=== PATIENT | male | born 1955 | race Caucasian/White ===

== ENCOUNTER 2019-06-01 22:50 | Emergency (ER) | payer OTHER, SELFPAY ==
--- NOTE | ~2019-06-01 | XR_ITS ---
XR foot LT min 3V 06/01/2019 23:17 Indication: Left first toe pain Procedure: 4 views left first toe Comparison: No prior studies for comparison. Findings: There is a healed fracture of the first proximal phalanx. There is a nondisplaced intra-art icular fracture of the first distal phalanx. Mild degenerative change at the first MTP joint. No othe r fracture identified. Impression: 1: Nondisplaced intra-articular fracture left first distal phalanx. Reviewed, dictated and finalized at location A. S [facility] [employer] Impression: 1: Nondisplaced intra-articular fracture left first distal phalanx.
[2019-06-01 22:51] VITALS: BP 187/123; PULSE 83; RESP 21; TEMP 36.6; O2SAT 97
--- NOTE | 2019-06-01 23:49 | ED.LOWEXIN ---
HPI - Extremity Injury (Lower) General Chief Complaint: Extremity Injury, Lower Stated Complaint: left foot injury Time Seen by Provider: 06/01/19 23:06 Source: patient and RN notes reviewed Mode of arrival: ambulatory Limitations: no limitations History of Present Illness HPI Narrative: Pt is a 63 y/o male who presents to the ED with c/o lt foot injury happening this afternoon. He notes that he has a Hx of previous lt toe fracture. Pt states that he was walking around 14:00 this afternoon, when he slipped and jammed his lt foot. He reports intense pain and swelling in the dorsal aspect of his lt foot and lt great toe s/p the injury. Pt denies any numbness/tingling, fever, chills, or other symptoms. He notes that he took ASA earlier today for his pain, but denies having any relief. Pt is not currently taking any blood thinners. MD complaint: foot injury Onset (ago): hour(s) (9) Injury: Left: foot Type of Injury: blunt Relieving factors: nothing Context: direct blow Associated symptoms: swelling (swelling over dorsal aspect of lt foot) Other symptoms: none Treatments prior to arrival: other (ASA) Related Data Allergies Allergy/AdvReac Type Severity Reaction Status Date / Time Sulfa (Sulfonamide Allergy Mild Hives Verified 06/01/19 22:50 Antibiotics) Review of Systems Review of Systems: All systems reviewed & are unremarkable except as noted in HPI and below Constitutional: Constitutional: Denies chills and Denies fever(s) Cardiovascular: Cardiovascular: Reports pedal edema (swelling over dorsal aspect of lt foot) Musculoskeletal: Musculoskeletal: Reports other (pain in dorsal aspect of lt foot and lt great toe) Neurologic: Denies numbness and Denies tingling PMFSH Past Medical History Medical History (Updated 06/01/19 @ 23:58 by Selvin Garcia) Bronchitis Nose fracture Toe fracture, left multiple toes Surgical History Surgical History History of tonsillectomy Social History Social History Years smoked: 5 Smoking status: Former smoker Gender identity (if verbalized by the patient): Male Exam Const: General: cooperative, healthy appearing, comfortable, no acute distress, well developed, alert and awake; No confusion Orientation/consciousness: oriented to person, oriented to place, oriented to time, patient oriented x3 and No confusion Limitations: no limitations HENMT: Head: normal to inspection, normocephalic and atraumatic Neck: Neck: normal visual inspection Chest: Chest palpation & inspection: normal inspection of the chest Resp: Effort & Inspection: normal respiratory effort, able to speak in complete sentences, no respiratory distress and not tachypneic Auscultation: clear to auscultation bilaterally, no crackles, no rales, no rhonchi and no wheezes Cardio: Rate: regular rate Rhythm: regular rhythm Peripheral pulses: Peripheral pulses 2+ throughout GI: Inspection: normal to inspection GI Palp: No abdominal tenderness, Yes Soft to palpation, No Tenderness to palpation present (GI), No Guarding due to palpation present (GI), No Rigid due to palpation and No Rebound tenderness present Auscultation: normal bowel sounds Skin: General skin exam: normal color, no rashes or lesions noted, elasticity normal and turgor normal Neuro: General: oriented to person, oriented to place, oriented to time, patient oriented x3, tone normal, moves all extremities, Normal light touch and pain sensation, no meningeal signs, no focal motor deficits, CN's II-XI intact bilaterally and No confusion Cranial nerves: Yes Equal, round and reactive pupils present Speech: No Abnormal speech present Sensory Exam: No Sensory deficit (Neuro) Extrem: General: capillary refill normal Left lower extremity: foot (swelling and ecchymosis of lt 1st digit) Details: tenderness (tenderness over 1st digit) Psych: Appearance: devora
[2019-06-02] MEDS: KETOROLAC (*BKC) 60 MG/2 ML VIAL 30 MG IM (00:12)
--- NOTE | 2019-06-02 00:20 | PC.NURSE ---
Post op shoe to left foot, patient tolerated well.
[2019-06-02 00:41] VITALS: BP 162/90; PULSE 84; RESP 18; TEMP 36.9; O2SAT 98
== END 2019-06-02 00:45 | disposition home or self-care (01) ==
PROVIDERS: Emergency Provider Emergency Medicine
DX: S92.425A Nondisplaced fracture of distal phalanx of left great toe, initial encounter for closed fracture (principal); Z87.891 Personal history of nicotine dependence; W18.49XA Other slipping, tripping and stumbling without falling, initial encounter
CPT/HCPCS: 73630; 96372; 99284; A9270; J1885

== ENCOUNTER 2020-03-26 02:44 | Emergency (ER) | payer OTHER, SELFPAY ==
--- NOTE | ~2020-03-26 | XR_ITS ---
EXAMINATION: XR chest 1V portable DATE: 03/26/2020 04:06 INDICATION: COVID. Dyspnea. TECHNIQUE: frontal view of the chest was obtained. COMPARISON: Chest radiograph and CT dated 04/19/2019 FINDINGS: Calcified nodules in the left lower lung zone and calcified mediastinal lymph nodes consistent with o ld granulomatous disease. No other airspace opacities, pulmonary edema, pleural effusion or pneumotho rax. Heart size is normal. Tortuous thoracic aorta. IMPRESSION: 1. No acute cardiopulmonary disease. Reviewed, dictated and finalized at location A. LANE CAPTAIN
--- NOTE | 2020-03-26 02:46 | ED.SOB ---
HPI - SOB/Dyspnea General Chief Complaint: Shortness of Breath/Dyspnea Stated Complaint: sob, possible covid Time Seen by Provider: 03/26/20 02:46 Source: patient Mode of arrival: ambulatory Limitations: no limitations History of Present Illness HPI Narrative: Patient is a 64-year-old male with a history of asthma who presents for evaluation of shortness of breath in the setting of recent Covid infection. Patient was diagnosed today with Covid, symptoms beginning 4 days ago. The time of assessment, patient is reporting shortness of breath. He reports he feels dehydrated and has had some muscle cramping. He denies fever, chills or productive cough. He denies diarrhea or abdominal pain. He reports decreased oral intake due to lack of appetite. He reports myalgias. Patient states he tried using his inhaler at home with minimal improvement in his symptoms. Related Data Allergies Allergy/AdvReac Type Severity Reaction Status Date / Time Sulfa (Sulfonamide Allergy Mild Hives Verified 06/01/19 22:50 Antibiotics) Review of Systems Review of Systems: Narrative: CONSTITUTIONAL: Denies fever, chills, or sweats. EYES: Denies visual changes, redness, or discharge. ENT: Reports mild rhinorrhea and congestion CARDIOVASCULAR: Denies chest pain, palpitations, or edema. RESPIRATORY: Reports dry cough and shortness of breath GASTROINTESTINAL: Denies abdominal pain, nausea, vomiting, or diarrhea. GENITOURINARY: Denies dysuria or hematuria. SKIN: Denies rash or itching. MUSCULOSKELETAL: Denies back pain, joint pain, or myalgia. NEUROLOGIC: Denies headache, numbness, or weakness. [facility] Past Medical History Medical History Bronchitis Nose fracture Toe fracture, left multiple toes Surgical History Surgical History History of tonsillectomy Social History Social History Years smoked: 5 Smoking status: Former smoker Gender identity (if verbalized by the patient): Male Exam Narrative: Exam Narrative: GENERAL: Awake, alert, conversant HEAD: Normocephalic, atraumatic. EYES: PERRLA and EOMI. ENT: Nares clear, no rhinorrhea or epistaxis. Mucous membranes moist. NECK: Supple. CHEST: No respiratory distress,, able to speak in full sentences, mild tachypnea breathing even and non labored, mild expiratory wheezing bilaterally HEART: Regular rate, sinus rhythm ABDOMEN:Non distended, non tender EXTREMITIES: Normal range of motion. No edema. SKIN: Warm, dry, no rash. NEURO:No focal deficits. Alert and oriented x3 Course Vital Signs Vital signs: Vital Signs Temperature 37.0 C 03/26/20 02:52 Pulse Rate 98 03/26/20 02:52 Respiratory Rate 24 H 03/26/20 02:52 Blood Pressure 169/103 H 03/26/20 02:52 Pulse Oximetry 97 03/26/20 02:52 Temperature 37.0 C 03/26/20 02:52 Pulse Rate 92 03/26/20 04:58 Respiratory Rate 20 03/26/20 04:58 Blood Pressure 171/102 H 03/26/20 04:15 Pulse Oximetry 99 03/26/20 04:15 MDM - SOB/Dyspnea MDM Narrative Medical decision making narrative: Patient presented for evaluation of shortness of breath in the setting of a recent Covid diagnosis. The time of assessment, ABCs are intact and vital signs are stable. Patient with mild tachypnea, no puja respiratory distress. Oxygen saturations are 97% on room air. Patient has some mild expiratory wheezing at the bases without crackles. His arterial blood gas is reassuring. No leukocytosis. Chest x-ray with mild patchy, developing infiltrates but no evidence of walled and pneumonia. This is not seem consistent with bacterial presentation especially given recent viral diagnosis. No electrolyte derangement. Mild elevation in ALT.patient was given DuoNeb treatment, steroids and magnesium given he has a history of asthma and I did feel like he was having a mild exacerbation
[2020-03-26 02:52] VITALS: BP 169/103; PULSE 98; RESP 24; TEMP 37; O2SAT 97
--- NOTE | 2020-03-26 02:58 | ECG_ITS ---
Measurements Intervals [place] Rate: 99 P: 70 [place]: 154 QRS: -2 QRSD: 112 T: 47 QT: 368 QTc: 473 Interpretive Statements SINUS RHYTHM NORMAL ECG Electronically Signed On 03-26-2020 9:26:19 [employer] by Malik Lee D.O.
[2020-03-26 03:22] LABS: Alveolar/Arterial O2 Gradient 27.8 mmHg; Base Excess ABG 2.2 mEq/l (+/-2.0); Carboxyhemoglobin 0.6 % THb (0-2.0); Fractional Inspired Oxygen 21 %; HCO3 ABG 26.3 mEq/l (22.0-26.0); Methemoglobin ABG 0.3 %THb (0-1.5); Oxygen Content ABG 21.8 %vol (16.0-22.0); Oxygen Saturation ABG 95.5 % (95.0-100.0); Oxyhemoglobin 94.2 % THb (90.0-100.0); PCO2 ABG 39.5 mmHg (35.0-45.0); PO2 ABG 74.6 mmHg (80.0-100.0); PO2 FiO2 Ratio Arterial Blood 3.55 %; Reduced Hemoglobin 4.9 %THb (0-5.0); Total Hemoglobin 16.5 g/dL (12.0-18.0); pH ABG 7.442 (7.350-7.450)
[2020-03-26 03:23] LABS: Device ROOM AIR; Modified Allen's Test Pass; Site Drawn LEFT RADIAL
[2020-03-26] MEDS: ACETAMINOPHEN 500 MG TABLET 1000 MG PO (03:38)
[2020-03-26] MEDS: ONDANSETRON INJ 4 MG/2 ML VIAL IV PUSH (03:40)
[2020-03-26] MEDS: methylPREDNISolone SOD SUCC 125 MG VIAL IV PUSH (03:41)
[2020-03-26] MEDS: SODIUM CHLORIDE 0.9% IV 1,000 ML 999 ML IV CONT (03:43)
[2020-03-26] MEDS: MAGNESIUM SULF 2 GM/WATER 50ML 2 GM/50 ML BAG IVPB (03:44)
[2020-03-26 03:47] LABS: Basophils Percent Auto 0.4 % (0.2-1.2); Eosinophils Absolute Auto 0.4 K/mm3 (0-0.3); Eosinophils Percent Auto 6.2 % (0-4.4); Hematocrit 45.8 % (42.0-52.0); Hemoglobin 16.1 g/dL (14.0-18.0); Immature Granulocyte Absolute 0.01 K/mm3 (0.00-0.031); Immature Granulocyte Percent A 0.1 % (0-0.5); Lymphocytes Absolute Auto 2.48 K/mm3 (0.9-3.2); Lymphocytes Percent Auto 35.7 % (18.3-44.2); Mean Corpuscular HGB Conc 35.2 g/dl (32-36); Mean Corpuscular Hemoglobin 31.7 pg (26-34); Mean Corpuscular Volume 90.2 fl (80-100); Mean Platelet Volume 9.9 fl (7.4-10.4); Monocytes Absolute Auto 0.5 K/mm3 (0.1-0.6); Monocytes Percent Auto 7.3 % (2.6-8.5); Neutrophils Absolute Auto 3.5 K/mm3 (1.3-6.7); Neutrophils Percent Auto 50.3 % (45.5-73.1); Platelet Count Result 183 k/mm3 (150-375); Red Blood Count 5.08 M/mm3 (4.6-6.20); Red Cell Distribution Width 11.9 % (11.5-14.5); White Blood Count 6.9 K/mm3 (4.5-10.0)
[2020-03-26 04:02] LABS: INR 0.9; Prothrombin Time 12.5 Seconds (11.1-14.7)
[2020-03-26] MEDS: ALBUTEROL SULFATE NEB 2.5 MG/0.5 ML INH 10 MG INHALATION (04:02)
[2020-03-26] MEDS: IPRATROPIUM BR 0.02% INH SOLN 0.5 MG/2.5 ML VIAL 2 MG INHALATION (04:02)
[2020-03-26 04:03] LABS: Partial Thromboplastin Time 30.1 SECONDS (22.3-36.8)
[2020-03-26 04:04] VITALS: PULSE 93; RESP 20
[2020-03-26 04:06] LABS: Alanine Aminotransferase 57 U/L (4-50); Albumin Level 4.2 g/dL (3.5-5.1); Alkaline Phosphatase 59 U/L (38-126); Anion Gap 7 mmol/L (8-16); Aspartate Amino Transferase 48 U/L (17-59); Bilirubin,Total 0.5 mg/dL (0.2-1.3); Blood Urea Nitrogen 17 mg/dL (9-20); CRP 0.9 mg/dL (<1.0); Calcium 9.4 mg/dL (8.4-10.2); Carbon Dioxide 33 mmol/L (22-30); Chloride 99 mmol/L (98-107); Estimated CRCL calculation 88 ml/min; Estimated Glomerular Filt Rate > 60; Glucose 120 mg/dL (75-110); Lactate Dehydrogenase 393 U/L (313-618); Potassium 4.2 mmol/L (3.4-5.0); Sodium 139 mmol/L (137-145)
[2020-03-26 04:12] LABS: NT Pro B Type Natriuretic Pept 54 PG/ML (5-100)
[2020-03-26 04:15] VITALS: BP 171/102; PULSE 83; RESP 18; O2SAT 99
[2020-03-26 04:22] LABS: Troponin I < 0.012 ng/mL (0.000-0.034)
[2020-03-26 04:58] VITALS: PULSE 92; RESP 20
[2020-03-26 06:02] VITALS: BP 152/96; PULSE 88; RESP 16; O2SAT 98
== END 2020-03-26 06:07 | disposition home or self-care (01) ==
PROVIDERS: Emergency Provider Emergency Medicine
DX: U07.1 COVID-19 (principal); J45.909 Unspecified asthma, uncomplicated; Z87.891 Personal history of nicotine dependence
CPT/HCPCS: 36415; 36600; 71045; 80053; 82375; 82805; 83050; 83615; 83880; 84484; 85025; 85610; 85730; 86140; 93005; 94640; 96365; 96375; 99284; A9270; J2405; J2930; J3475; J7030

== ENCOUNTER 2020-08-03 01:16 | Emergency (ER) | payer OTHER, SELFPAY ==
--- NOTE | ~2020-08-03 | CT_ITS ---
EXAMINATION: CT abdomen pelvis wo con DATE: 08/03/2020 02:39 INDICATION: Right lower quadrant abdominal pain TECHNIQUE: Computed tomography (CT) of the abdomen and pelvis was performed without intravenous contr ast. Automated exposure control and iterative reconstruction technique were employed. Exam dose: 132 6.21 mGy-cm total exam DLP. COMPARISON: None. FINDINGS: Calcified left hilar nodes. Calcified lingular pulmonary granuloma. Probable calcified righ t lower lobe granulomas. There is discoid atelectasis or scarring in the middle and left lower lobes. Normal heart size. No pericardial or pleural effusion. Calcified hepatic and splenic granulomas. No hepatic, splenic, pancreatic, and adrenal or renal space-occupying mass lesion is evident on this limited noncontrast examination. There is a punctate nonobstructing lower pole right renal calculus. Approximately 7 mm distal right ureteral calculus with mild right hydroureteronephrosis and perinephr ic and periureteral stranding. Normal caliber of the abdominal aorta. No intraperitoneal or retroperitoneal or pelvic mass lesion or adenopathy or ascites. There is mild prostate enlargement. The urinary bladder is unremarkable. There are bilateral moderate fat-containing inguinal hernias. Normal appendix. Mild sigmoid colon diverticulosis; no CT evidence of diverticulitis. No bowel obstru ction, bowel wall thickening, pneumatosis or intraperitoneal free air. Small fat-containing umbilical hernia. Degenerative changes of the thoracic and lumbar spine. No suspicious osteolytic or osteoblastic lesio ns are noted. IMPRESSION: 7 mm distal right ureteral calculus with mild right hydroureteronephrosis Punctate nonobstructing lower pole right renal calculus Normal appendix Mild sigmoid colon diverticulosis Old granulomatous disease Reviewed, dictated and finalized at Location [facility]. Reviewed, dictated and finalized at location A. IMPRESSION: 7 mm distal right ureteral calculus with mild right hydroureterone phrosis Punctate nonobstructing lower pole right renal calculus Normal appendix Mild sigmoid colon diverticulosis Old granulomatous disease
--- NOTE | ~2020-08-03 | XR_ITS ---
EXAMINATION: XR abdomen/kub 1V DATE: 08/03/2020 02:44 INDICATION: Right lower abdominal pain. TECHNIQUE: A supine view of the abdomen on 2 radiographs was obtained. COMPARISON: CT abdomen and pelvis 08/03/2020 FINDINGS: There are no dilated loops of bowel. There is a 7 mm stone in distal right ureter. There ar e phleboliths in left pelvis. IMPRESSION: 1. 7 mm stone in distal right ureter. Reviewed, dictated and finalized at location B.
[2020-08-03 01:19] VITALS: PULSE 92; TEMP 36.5; O2SAT 98
--- NOTE | 2020-08-03 01:27 | ED.ABDPAIN ---
HPI - Abdominal Pain General Chief Complaint: Abdominal Pain Stated Complaint: rlq Time Seen by Provider: 08/03/20 01:18 Source: patient Mode of arrival: ambulatory Limitations: no limitations History of Present Illness HPI narrative: This is a 65 year old male who presents for evaluation of sudden onset right lower abdominal pain. He developed pain suddenly 1 hour ago. He states his pain has worsened and he tried to taking gas x without relief. He denies nausea, vomiting, fever, chills, dysuria, hematuria or back. HE reports pain to right groin and testicul but he denies swelling. Quality: aching Exacerbating factors: nothing Relieving factors: nothing Related Data Home Medications Medication Instructions Recorded Confirmed furosemide 08/03/20 Allergies Allergy/AdvReac Type Severity Reaction Status Date / Time Sulfa (Sulfonamide Allergy Mild Hives Verified 08/03/20 01:51 Antibiotics) Review of Systems Review of Systems: All systems reviewed & are unremarkable except as noted in HPI and below Constitutional: Constitutional: Denies chills and Denies fever(s) Gastrointestinal: Gastrointestinal: Reports abdominal pain, Reports nausea and Reports vomiting PMFSH Past Medical History Medical History Bronchitis Nose fracture Toe fracture, left multiple toes Surgical History Surgical History History of tonsillectomy Social History Social History Years smoked: 5 Smoking status: Former smoker Gender identity (if verbalized by the patient): Male Exam Const: General: alert Orientation/consciousness: patient oriented x3 Eyes: EOM: EOMs intact bilaterally Chest: Chest palpation & inspection: normal inspection of the chest Resp: Effort & Inspection: normal respiratory effort and no retractions Auscultation: clear to auscultation bilaterally Cardio: Rate: regular rate Rhythm: regular rhythm Heart sounds: no murmurs GI: GI Palp: Yes Soft to palpation, Yes Tenderness to palpation present (GI) (RLQ), No Guarding due to palpation present (GI) and No Rigid due to palpation Auscultation: normal bowel sounds : Penis: Yes uncircumcised Scrotum: scrotum normal Skin: General skin exam: normal color Rashes: no rashes Neuro: General: patient oriented x3, moves all extremities and CN's II-XI intact bilaterally Course Reevaluation(s) Reevaluation #1: Patient reports his pain has completely resolved. I discussed cT findings of distal stone. He understands discharge plan. Date: 08/03/20 Time: 03:13 Vital Signs Vital signs: Vital Signs Temperature 97.7 F 08/03/20 01:19 Pulse Rate 92 08/03/20 01:19 Pulse Oximetry 98 08/03/20 01:19 Temperature 97.7 F 08/03/20 01:19 Pulse Rate 71 08/03/20 03:50 Respiratory Rate 18 08/03/20 03:50 Blood Pressure 166/106 H 08/03/20 03:50 Pulse Oximetry 98 08/03/20 03:50 MDM - Abdominal Pain Lab Data Attestation: I reviewed the patient's lab results. Result diagrams: 08/03/20 01:44 08/03/20 01:44 Labs: Lab Results 08/03/20 08/03/20 08/03/20 Range/Units 01:44 01:44 01:51 WBC 8.8 (4.5-10.0) K/mm3 RBC 5.21 (4.6-6.20) M/mm3 Hgb 16.0 (14.0-18.0) g/dL Hct 47.8 (42.0-52.0) % MCV 91.7 (80-100) fl MCH 30.7 (26-34) pg MCHC 33.5 (32-36) g/dl RDW 12.9 (11.5-14.5) % Plt Count 262 (150-375) k/mm3 MPV 9.2 (7.4-10.4) fl Immature Gran % (Auto) 0.2 (0-0.5) % Neut % (Auto) 43.1 L (45.5-73.1) % Lymph % (Auto) 45.1 H (18.3-44.2) % Evans % (Auto) 6.7 (2.6-8.5) % Eos % (Auto) 4.1 (0-4.4) % Baso % (Auto) 0.8 (0.2-1.2) % Lymph # (Auto) 3.97 H (0.9-3.2) K/mm3 Evans # (Auto) 0.6 (0.1-0.6) K/mm3 Eos # (Auto) 0.4 H (0-0.3) K/mm3 Baso # (Auto) 0.1
[2020-08-03] MEDS: HYDROmorphone HCL INJ (*CRX) 1 MG/ML SYR IV PUSH (01:40)
[2020-08-03] MEDS: ONDANSETRON INJ 4 MG/2 ML VIAL IV PUSH (01:42)
[2020-08-03 01:44] VITALS: BP 191/88
[2020-08-03] MEDS: LACTATED RINGERS 1,000 ML 999 ML IV CONT (01:50)
[2020-08-03 01:57] LABS: Basophils Absolute Auto 0.1 K/mm3 (0.0-0.1); Basophils Percent Auto 0.8 % (0.2-1.2); Eosinophils Absolute Auto 0.4 K/mm3 (0-0.3); Eosinophils Percent Auto 4.1 % (0-4.4); Hematocrit 47.8 % (42.0-52.0); Immature Granulocyte Absolute 0.02 K/mm3 (0.00-0.031); Immature Granulocyte Percent A 0.2 % (0-0.5); Lymphocytes Absolute Auto 3.97 K/mm3 (0.9-3.2); Lymphocytes Percent Auto 45.1 % (18.3-44.2); Mean Corpuscular HGB Conc 33.5 g/dl (32-36); Mean Corpuscular Hemoglobin 30.7 pg (26-34); Mean Corpuscular Volume 91.7 fl (80-100); Mean Platelet Volume 9.2 fl (7.4-10.4); Monocytes Absolute Auto 0.6 K/mm3 (0.1-0.6); Monocytes Percent Auto 6.7 % (2.6-8.5); Neutrophils Absolute Auto 3.8 K/mm3 (1.3-6.7); Neutrophils Percent Auto 43.1 % (45.5-73.1); Platelet Count Result 262 k/mm3 (150-375); Red Blood Count 5.21 M/mm3 (4.6-6.20); Red Cell Distribution Width 12.9 % (11.5-14.5); White Blood Count 8.8 K/mm3 (4.5-10.0)
[2020-08-03 02:13] LABS: Alanine Aminotransferase 35 U/L (4-50); Albumin Level 4.7 g/dL (3.5-5.1); Alkaline Phosphatase 63 U/L (38-126); Anion Gap 9 mmol/L (8-16); Aspartate Amino Transferase 37 U/L (17-59); Bilirubin,Total 0.5 mg/dL (0.2-1.3); Blood Urea Nitrogen 22 mg/dL (9-20); Calcium 9.9 mg/dL (8.4-10.2); Carbon Dioxide 31 mmol/L (22-30); Chloride 104 mmol/L (98-107); Estimated CRCL calculation 69 ml/min; Estimated Glomerular Filt Rate 56; Glucose 114 mg/dL (75-110); Lipase 83 U/L (23-300); Sodium 144 mmol/L (137-145)
[2020-08-03 02:21] LABS: Add Urine Microscopic? YES; Appearance Urine Cloudy (Clear); Bilirubin Urine Negative (Negative); Blood Urine 1+ (Negative); Color Urine Yellow (Yellow); Glucose Urine UA Negative (Negative); Ketones Urine Negative (Negative); Leukocyte Esterase Ur Negative LEU/UL (Negative); Mucus Urine Few /lpf; Nitrate Urine Negative (Negative); Protein Urine Negative (Negative); Specific Grav Ur 1.025 (1.001-1.035); Squamous Epithelial Cell Urine Rare /hpf (Few); Urobilinogen Urine Negative mg/dL (<2.0)
[2020-08-03 03:12] VITALS: BP 153/103; PULSE 82; RESP 19; O2SAT 96
[2020-08-03] MEDS: TAMSULOSIN HCL 0.4 MG CAPSULE PO (03:21)
--- NOTE | 2020-08-03 03:23 | PC.NURSE ---
Attempted to call pt. girlfriend Carla at [phone]. Called 3x no answer
--- NOTE | 2020-08-03 03:24 | PC.NURSE ---
Pt. girlfriend Carla called back. states she will make a couple phone calls and be in contact w/ RN
[2020-08-03 03:50] VITALS: BP 166/106; PULSE 71; RESP 18; O2SAT 98
--- NOTE | 2020-08-03 03:58 | PC.NURSE ---
Pt. waiting on cab to pick him up.
--- NOTE | 2020-08-03 04:59 | PC.NURSE ---
[facility] cab showed up to transport pt. 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 walked out to parking lot and never returned.
== END 2020-08-03 03:50 | disposition home or self-care (01) ==
PROVIDERS: Emergency Provider General Practice; PCP Family Medicine
DX: N13.2 Hydronephrosis with renal and ureteral calculous obstruction (principal); Z87.891 Personal history of nicotine dependence; K57.90 Diverticulosis of intestine, part unspecified, without perforation or abscess without bleeding
CPT/HCPCS: 36415; 74018; 74176; 80053; 81001; 83690; 85025; 96361; 96374; 96375; 99284; A9270; J1170; J2405; J7120

== ENCOUNTER 2020-09-25 02:24 | Emergency (ER) | payer OTHER, SELFPAY ==
[2020-09-25] VITALS (8 sets, daily range): BP systolic 159–175; BP diastolic 83–97; PULSE 76–88; RESP 14–24; TEMP 36.9; O2SAT 97–100
--- NOTE | ~2020-09-25 | XR_ITS ---
XR chest 2V 09/25/2020 02:50 Indication: Shortness of breath and cough Procedure: PA and lateral views of the chest Comparison: Comparison to multiple prior studies sequentially, with oldest reviewed study dated 09/08. Findings: Heart size normal. No focal air space disease, pulmonary edema, pleural effusion or suspect ed pneumothorax. Impression: 1: No acute cardiopulmonary disease. Reviewed, dictated and finalized at location A. Impression: 1: No acute cardiopulmonary disease.
--- NOTE | 2020-09-25 02:33 | ECG_ITS ---
Measurements Intervals [place] Rate: 85 P: 66 GA: 173 QRS: 10 QRSD: 105 T: 48 QT: 409 QTc: 488 Interpretive Statements SINUS RHYTHM WITH SINUS ARRHYTHMIA POSSIBLE LEFT ATRIAL ENLARGEMENT BASELINE ARTIFACT- I, II, AVR BORDERLINE ECG Electronically Signed On 09-25-2020 5:50:02 CDT by Malik Lee D.O.
--- NOTE | 2020-09-25 02:47 | PC.NURSE ---
Patient in xray at this time.
[2020-09-25 02:49] LABS: Basophils Absolute Auto 0.1 K/mm3 (0.0-0.1); Basophils Percent Auto 0.6 % (0.2-1.2); Eosinophils Absolute Auto 0.5 K/mm3 (0-0.3); Eosinophils Percent Auto 4.9 % (0-4.4); Hematocrit 44.6 % (42.0-52.0); Hemoglobin 14.6 g/dL (14.0-18.0); Immature Granulocyte Absolute 0.03 K/mm3 (0.00-0.031); Immature Granulocyte Percent A 0.3 % (0-0.5); Lymphocytes Absolute Auto 3.26 K/mm3 (0.9-3.2); Lymphocytes Percent Auto 29.9 % (18.3-44.2); Mean Corpuscular HGB Conc 32.7 g/dl (32-36); Mean Corpuscular Hemoglobin 30.5 pg (26-34); Mean Corpuscular Volume 93.1 fl (80-100); Mean Platelet Volume 9.1 fl (7.4-10.4); Monocytes Absolute Auto 0.7 K/mm3 (0.1-0.6); Monocytes Percent Auto 6.3 % (2.6-8.5); Neutrophils Absolute Auto 6.3 K/mm3 (1.3-6.7); Platelet Count Result 221 k/mm3 (150-375); Red Blood Count 4.79 M/mm3 (4.6-6.20); Red Cell Distribution Width 12.9 % (11.5-14.5); White Blood Count 10.9 K/mm3 (4.5-10.0)
[2020-09-25] MEDS: KETOROLAC 30 MG/ML VIAL (*BKC) 15 MG IV PUSH (03:00)
[2020-09-25] MEDS: SODIUM CHLORIDE 0.9% IV 1,000 ML 999 ML IV CONT (03:00)
[2020-09-25] MEDS: ALBUTEROL SULFATE NEB 2.5 MG/0.5 ML INH 5 MG INHALATION (03:03)
[2020-09-25] MEDS: IPRATROPIUM BR 0.02% INH SOLN 0.5 MG/2.5 ML VIAL INHALATION (03:04)
[2020-09-25 03:05] LABS: Anion Gap 10 mmol/L (8-16); Blood Urea Nitrogen 14 mg/dL (9-20); Calcium 9.3 mg/dL (8.4-10.2); Carbon Dioxide 27 mmol/L (22-30); Chloride 101 mmol/L (98-107); Estimated CRCL calculation 89 ml/min; Estimated Glomerular Filt Rate > 60; Glucose 117 mg/dL (75-110); Sodium 138 mmol/L (137-145)
--- NOTE | 2020-09-25 03:50 | ED.GENADULT ---
HPI - General Adult General Chief complaint: Shortness of Breath/Dyspnea Stated complaint: sob, cough, chest pain Time Seen by Provider: 09/25/20 02:49 History of Present Illness HPI narrative: Patient is 65-year-old gentleman who presents the emergency department with chief complaint of cough. Patient reports that over the last several weeks he has been having increasing coughing and is started coughing up greenish sputum. The patient reports he has previously had COVID-19 and since then he has had lung problems. Patient states he normally takes Symbicort and also uses an albuterol rescue inhaler. Patient reports he has been wheezing more reports that he has been coughing a fair amount and has had greenish sputum patient also reports that he has had sinus congestion as well and pressure in his face. Patient states this feels similar to whenever he has had bacterial bronchitis before in the past Related Data Home Medications Medication Instructions Recorded Confirmed budesonide-formoterol [Symbicort] INHALATION 09/25/20 tadalafil mg 09/25/20 Allergies Allergy/AdvReac Type Severity Reaction Status Date / Time Sulfa (Sulfonamide Allergy Mild Hives Verified 09/25/20 02:32 Antibiotics) Review of Systems Review of Systems: Narrative: A 10 system review of systems was completed on the patient and is negative except for what is stated in the HPI. Nursing and ancillary documentation was reviewed. [facility] Past Medical History Medical History Bronchitis Nose fracture Toe fracture, left multiple toes Surgical History Surgical History History of tonsillectomy Social History Social History Years smoked: 5 Smoking status: Former smoker Gender identity (if verbalized by the patient): Male Exam Narrative: Exam Narrative: GENERAL: Well-appearing, well-nourished, and in no acute distress. HEAD: Normocephalic, atraumatic. EYES: PERRLA and EOMI. ENT: Nares clear, no rhinorrhea or epistaxis. Mucous membranes moist. NECK: Supple. CHEST: Clear to auscultation. No respiratory distress. HEART: Regular rate and rhythm. No murmur heard. Normal peripheral pulses. ABDOMEN: Soft, nontender, nondistended, normal active bowel sounds. EXTREMITIES: Normal range of motion. No edema. SKIN: Warm, dry, no rash. NEURO: No focal deficits. Alert and oriented x3. PSYCH: Normal mood and affect. Course Vital Signs Vital signs: Vital Signs Temperature 36.9 C 09/25/20 02:27 Pulse Rate 76 09/25/20 02:27 Respiratory Rate 24 H 09/25/20 02:27 Blood Pressure 175/97 H 09/25/20 02:27 Pulse Oximetry 99 09/25/20 02:27 Temperature 36.9 C 09/25/20 02:27 Pulse Rate 85 09/25/20 03:15 Respiratory Rate 16 09/25/20 03:15 Blood Pressure 175/97 H 09/25/20 02:27 Pulse Oximetry 100 09/25/20 03:15 Medical Decision Making Vital Signs Vital Signs: Vital Signs Temperature 36.9 C 09/25/20 02:27 Pulse Rate 76 09/25/20 02:27 Respiratory Rate 24 H 09/25/20 02:27 Blood Pressure 175/97 H 09/25/20 02:27 Pulse Oximetry 99 09/25/20 02:27 Temperature 36.9 C 09/25/20 02:27 Pulse Rate 85 09/25/20 03:15 Respiratory Rate 16 09/25/20 03:15 Blood Pressure 175/97 H 09/25/20 02:27 Pulse Oximetry 100 09/25/20 03:15 Lab Data Result diagrams: 09/25/20 02:45 09/25/20 02:45 Labs: Lab Results 09/25/20 09/25/20 Range/Units 02:45 02:45 WBC 10.9 H (4.5-10.0) K/mm3 RBC 4.79 (4.6-6.20) M/mm3 Hgb 14.6 (14.0-18.0) g/dL Hct 44.6 (42.0-52.0) % MCV 93.1 (80-100) fl MCH 30.5 (26-34) pg MCHC 32.7 (32-36) g/dl RDW 12.9 (11.5-14.5) % Plt Count 221 (150-375) k/mm3 MPV 9.1 (7.4-10.4) fl Immature Gran % (Auto) 0.3 (0-0.5) % Neut % (Auto)
== END 2020-09-25 04:09 | disposition home or self-care (01) ==
PROVIDERS: Emergency Provider Emergency Medicine; PCP Family Medicine
DX: J20.9 Acute bronchitis, unspecified (principal); Z87.891 Personal history of nicotine dependence; J98.8 Other specified respiratory disorders; B94.8 Sequelae of other specified infectious and parasitic diseases; R94.31 Abnormal electrocardiogram [ECG] [EKG]
CPT/HCPCS: 36415; 71046; 80048; 85025; 93005; 94640; 96361; 96374; 99284; J1885; J7030

== ENCOUNTER 2020-10-26 13:58 | Outpatient (CLI) | payer OTHER, SELFPAY ==
--- NOTE | 2020-10-30 13:54 | P.PCNPFT_ITS ---
PFT Procedure Performed PFT Procedure Performed Spirometry with Pre/Post Bronchodilator Plethysmography (Lung Vol) Diffusing Cap (DLCO) Flow Vol Loop PFT Interpretation DOS: 10/26/2020 REQUESTING: [place] Garzon REASON FOR TESTING: asthma PULMONARY FUNCTION TESTS Results are reliable and reproducible. The patient had COVID in March of 2020. Spirometry: FEV1 is 49% predicted, 1.8 L, severely reduced. FVC is 52% predicted. The FEV1/FVC ratio is 71%. FEF 25-75 is 41%. There is a sign ificant response to bronchodilator 27% increase in the FEV1 which is greater than 200 ml. Lung volumes: Total lung capacity is normal 102%. The vital capacity is 63% which is higher than the forced vital capacity measured in the spirometry. This is consistent with dynamic airway obstruction. The residual volume is 187 sit% severe air trapping. RV/TLC is increased at 60%. ERV is low 28% predicted in this reflects the elevated body mass index. Airway resistance is increased. Diffusion: DLCO 92%, normal. Flow volume loop: The inspiratory loop is submaximal. IMPRESSION: There is an obstructive process evidenced by severe air trapping with a severe ventilatory impairment. No restriction. Good response to bronchodilator. Normal diffusion capacity. In the proper clinical setting, this pattern could represent asthma. No prior studies for comparison. This patient had COVID 7 months ago. He needs to have repeat PFT in 6 months. Consider 6 minute walk to evaluate for need for supplemental oxygen with exertion as well as maximal inspiratory pressure and maximal expiratory pressure to evaluate respiratory muscle strength. Nikia Ling MD
== END 2020-10-26 13:59 | disposition home or self-care (01) ==
LOC: ANHPFT 14:00
PROVIDERS: PCP Family Medicine; Visit Provider Nurse Practitioner
DX: J45.909 Unspecified asthma, uncomplicated (principal); R94.2 Abnormal results of pulmonary function studies
CPT/HCPCS: 94060; 94726; 94729

== ENCOUNTER 2021-02-10 19:31 | Emergency (ER) | payer OTHER, SELFPAY ==
[2021-02-10 19:32] VITALS: BP 194/121; PULSE 84; RESP 17; TEMP 36.4; O2SAT 99
--- NOTE | 2021-02-10 20:16 | ED.EAR ---
HPI - Ear Problem General Chief complaint: Ear Stated complaint: left ear pain Time Seen by Provider: 02/10/21 19:42 Source: patient Mode of arrival: ambulatory Limitations: no limitations History of Present Illness HPI Narrative: This is a 65 year old male that presents to the ER for left ear pain present over the last couple of days. Reports swelling to the area. Denies fever or drainage. Related Data Home Medications Medication Instructions Recorded Confirmed albuterol sulfate INHALATION 02/10/21 budesonide-formoterol [Symbicort] INHALATION 02/10/21 02/10/21 Allergies Allergy/AdvReac Type Severity Reaction Status Date / Time Sulfa (Sulfonamide Allergy Mild Hives Verified 02/10/21 19:34 Antibiotics) Review of Systems Review of Systems: CONSTITUTIONAL: Denies fever ENT: Reports otalgia All systems reviewed & are unremarkable except as noted in HPI and below PMFSH Past Medical History Medical History Bronchitis Nose fracture Toe fracture, left multiple toes Surgical History Surgical History History of tonsillectomy Social History Social History Years smoked: 5 Smoking status: Former smoker Gender identity (if verbalized by the patient): Male Exam Narrative: GENERAL: Well-appearing, well-nourished, and in no acute distress. HEAD: Normocephalic, atraumatic. EYES: EOMI. ENT: Bilateral TMs pearly acevedo non-bulging. Left external auditory canal with mild to moderate edema. Tender to palpation of the tragus. No mastoid tenderness or swelling NECK: Supple. No adenopathy or masses. CHEST: No respiratory distress. HEART: Regular rate EXTREMITIES: Normal range of motion. No edema. SKIN: Warm, dry, no rash. NEURO: No focal deficits. Alert and oriented x3. PSYCH: Normal mood and affect Course Vital Signs Vital signs: Vital Signs Temperature 97.6 F 02/10/21 19:32 Pulse Rate 84 02/10/21 19:32 Respiratory Rate 17 02/10/21 19:32 Blood Pressure 194/121 H 02/10/21 19:32 Pulse Oximetry 99 02/10/21 19:32 Temperature 97.6 F 02/10/21 19:32 Pulse Rate 84 02/10/21 19:32 Respiratory Rate 17 02/10/21 19:32 Blood Pressure 194/121 H 02/10/21 19:32 Pulse Oximetry 99 02/10/21 19:32 Medical Decision Making MDM Narrative Medical decision making narrative: Patient presents to the emergency department for otalgia present over the last couple of days. Exam is consistent with otitis externa. Patient will be started on antibiotic eardrops. He is to follow-up with his primary care doctor. He was given warnings to return to the ER Blood pressure incidentally noted to be elevated while in the ED. He is asymptomatic with this. Reports he has known history of hypertension. Refuses to take any medications for this Vital Signs Vital Signs: Vital Signs Temperature 97.6 F 02/10/21 19:32 Pulse Rate 84 02/10/21 19:32 Respiratory Rate 17 02/10/21 19:32 Blood Pressure 194/121 H 02/10/21 19:32 Pulse Oximetry 99 02/10/21 19:32 Temperature 97.6 F 02/10/21 19:32 Pulse Rate 84 02/10/21 19:32 Respiratory Rate 17 02/10/21 19:32 Blood Pressure 194/121 H 02/10/21 19:32 Pulse Oximetry 99 02/10/21 19:32 Critical Care Time Critical Care Time Critical Care Time: No Discharge Plan Discharge Clinical Impression: Otitis externa Qualifiers: Otitis externa type: unspecified type Chronicity: acute Laterality: left Qualified Code(s): H60.502 - Unspecified acute noninfective otitis externa, left ear Patient Disposition: Home, Self-Care Condition: Stable Instructions: Antibiotic Form, Swimmer's Ear (ED) Additional Instructions: Return to the ER if you experience fever, increasing redness and swelling of your ear, or any other concerning symptoms Instill 3
[2021-02-10] MEDS: HYDROcodone/acetaminophen (*CRX) 5-325 MG TABLET 1 TAB PO (20:57)
[2021-02-10] MEDS: CIPROFLOXACIN HC OTIC 10 ML 3 DROP LEFT EAR (21:00)
[2021-02-10 21:23] VITALS: BP 157/107; PULSE 91; RESP 18; O2SAT 97
== END 2021-02-10 21:15 | disposition home or self-care (01) ==
PROVIDERS: Emergency Provider Emergency Medicine
DX: H60.502 Unspecified acute noninfective otitis externa, left ear (principal); I10 Essential (primary) hypertension; Z87.891 Personal history of nicotine dependence
CPT/HCPCS: 99283; A9270

== ENCOUNTER 2022-08-13 16:41 | Outpatient (CLI) | payer MEDICARE, MEDICAID, SELFPAY ==
--- NOTE | ~2022-08-13 | XR_ITS ---
EXAMINATION: XR chest 2V Exam Date/Time: 08/13/2022 16:55 CDT HISTORY: COPD, HX OF ASTHMA, SOB Comparison: 09/25/2020. RESULT: Lines, tubes, and devices: None. Lungs and pleura: Scattered reticulonodular opacities. Calcified peripheral left lower lobe granulom a. Flattened hemidiaphragms. Cardiomediastinal silhouette: Stable. Other: No acute osseous or upper abdominal finding. IMPRESSION: Pulmonary opacities may represent bronchiolitis, as can be seen with atypical infection, asthma, aspi ration, and small airways disease. Emphysematous changes. Reviewed, dictated and finalized at location K. IMPRESSION: Pulmonary opacities may represent bronchiolitis, as can be seen with atypical i nfection, asthma, aspiration, and small airways disease. Emphysematous changes.
== END 2022-08-13 16:42 | disposition home or self-care (01) ==
LOC: ANHIMG 16:50
PROVIDERS: PCP Emergency Medicine; Visit Provider Emergency Medicine
DX: J44.9 Chronic obstructive pulmonary disease, unspecified (principal)
CPT/HCPCS: 71046

== ENCOUNTER 2023-03-01 13:32 | Emergency (ER) | payer MEDICARE, MEDICAID, SELFPAY ==
[2023-03-01] VITALS (13 sets, daily range): BP systolic 152–162; BP diastolic 89–110; PULSE 64–97; RESP 18–27; TEMP 36.6; O2SAT 96–100
--- NOTE | ~2023-03-01 | XR_ITS ---
EXAMINATION: XR chest 2V Exam Date/Time: 03/01/2023 14:05 PATIENT CASE COORDINATOR HISTORY: Congestion, sob Comparison: 09/16/2022. RESULT: Lines, tubes, and devices: None. Lungs and pleura: Clear. Granulomatous calcification Cardiomediastinal silhouette: Stable. Other: No acute osseous or upper abdominal finding. IMPRESSION: No acute cardiopulmonary process. Reviewed, dictated and finalized at location K. ENT CASE COORDINATOR
--- NOTE | 2023-03-01 15:48 | ECG_ITS ---
Measurements Intervals [place] Rate: 75 P: 62 [place]: 172 QRS: 13 QRSD: 106 T: 187 QT: 387 QTc: 433 Interpretive Statements SINUS RHYTHM WITH SINUS ARRHYTHMIA POSSIBLE LEFT ATRIAL ENLARGEMENT LEFT VENTRICULAR HYPERTROPHY WITH ST-T CHANGE ST-T WAVE ABNORMALITY IN ANTEROLATERAL LEADS- CONSIDER ISCHEMIA ABNORMAL ECG COMPARED TO ECG 09/16/2022 22:39:24 [address]MIA NOW PRESENT ST-T WAVE ABNORMALITY NOW PRESENT Electronically Signed On 03-01-2023 16:30:41 [facility] by Malik Lee D.O.
[2023-03-01] MEDS: SODIUM CHLORIDE 0.9% IV 1,000 ML 999 ML IV CONT (16:03)
--- NOTE | 2023-03-01 16:03 | ED.GENADULT ---
HPI - General Adult General Chief complaint: Upper Respiratory Infection Stated complaint: SOB Time Seen by Provider: 03/01/23 15:09 History of Present Illness HPI narrative: Jeevan Castellanos is a 67 y/o male who presents with reported hx of COPD he is on symbicort and albuterol inhalers at home. He states that he was exposed to someone who had cold about 3-4 days ago, the following day started to get a runny nose and starting yesterday pt has had a hard time breathing. Reports this has happened before and he usually needs a breathing treatment and he feels better. Denies chest pain/ denies fever/chills reports productive cough for a couple days. Denies fever/chills Related Data Home Medications Medication Instructions Recorded Confirmed albuterol sulfate 90 mcg/actuation inhalation 02/10/21 aerosol inhaler budesonide-formoterol HFA 160 inhalation 02/10/21 02/10/21 mcg-4.5 mcg/actuation aerosol inhaler (Symbicort) Allergies Allergy/AdvReac Type Severity Reaction Status Date / Time Sulfa (Sulfonamide Allergy Mild Hives Verified 09/17/22 00:06 Antibiotics) Review of Systems Review of Systems: CONSTITUTIONAL: Denies fever, chills, or sweats. EYES: Denies visual changes, redness, or discharge. ENT: Denies rhinorrhea, congestion, sore throat, or otalgia. CARDIOVASCULAR: Denies chest pain, palpitations, or edema. RESPIRATORY: Reports productive cough for 2 days/ increased SOB for 2 days GASTROINTESTINAL: Denies abdominal pain, nausea, vomiting, or diarrhea. GENITOURINARY: Denies dysuria or hematuria. SKIN: Denies rash or itching. MUSCULOSKELETAL: Denies back pain, joint pain, or myalgia. NEUROLOGIC: Denies headache, numbness, dizziness, or weakness. PSYCHIATRIC: Denies anxiety or depression. [facility] Past Medical History Medical History Bronchitis Nose fracture Toe fracture, left multiple toes Surgical History Surgical History History of tonsillectomy Social History Social History Years smoked: 5 Smoking status: Former smoker Gender identity (if verbalized by the patient): Male Exam Narrative: GENERAL: Well-appearing, well-nourished, and in no acute distress. HEAD: Normocephalic, atraumatic. EYES: PERRLA and EOMI. ENT: Nares clear, no rhinorrhea or epistaxis. Mucous membranes moist. Oropharynx without tonsillar hypertrophy exudate or other lesions. NECK: Supple. No adenopathy or masses. No carotid bruits or JVD CHEST: wheezes rales and rhonchi noted more on the right side / left side more diminished. HEART: Regular rate and rhythm. No murmur heard. Normal peripheral pulses. ABDOMEN: Soft, nontender, nondistended, normal active bowel sounds. EXTREMITIES: Normal range of motion. No edema. SKIN: Warm, dry, no rash. NEURO: No focal deficits. Alert and oriented x3. PSYCH: Normal mood and affect. Course Vital Signs Vital signs: Vital Signs Temperature 36.6 C 03/01/23 13:36 Pulse Rate 97 03/01/23 13:36 Respiratory Rate 20 03/01/23 13:36 Blood Pressure 152/99 H 03/01/23 13:36 Pulse Oximetry 98 03/01/23 13:36 Oxygen Delivery Room Air 03/01/23 13:36 Temperature 36.6 C 03/01/23 13:36 Pulse Rate 89 03/01/23 17:05 Respiratory Rate 18 03/01/23 17:05 Blood Pressure 157/89 H 03/01/23 16:01 Pulse Oximetry 100 03/01/23 16:45 Oxygen Delivery Room Air 03/01/23 15:20 Medical Decision Making [facility] Narrative Medical decision making narrative: On exam pt is resting comfortably he states that he has felt increased SOB for 2 days/ audible wheezing noted without stethascope Notable/ wheezing, rhonchi, coarse lung sounds sating 97% on RA> +productive cough Denies chest pain/ fever/chills/ abdominal pain/ nausea/vomiting Concern for : COPD Exacerbation/ URI/ Pneumonia/ Bronchitis/ Pl
[2023-03-01] MEDS: ALBUTEROL SULFATE NEB 2.5 MG/3 ML INH 10 MG INHALATION (16:05)
[2023-03-01] MEDS: IPRATROPIUM BR 0.02% INH SOLN 0.5 MG/2.5 ML VIAL INHALATION (16:05)
[2023-03-01 16:08] LABS: Basophils Absolute Auto 0.1 K/mm3 (0.0-0.1); Basophils Percent Auto 0.9 % (0.2-1.2); Eosinophils Absolute Auto 0.5 K/mm3 (0-0.3); Eosinophils Percent Auto 8.5 % (0-4.4); Hematocrit 44.3 % (42.0-52.0); Hemoglobin 14.9 g/dL (14.0-18.0); Immature Granulocyte Absolute 0.01 K/mm3 (0.00-0.031); Immature Granulocyte Percent A 0.2 % (0-0.5); Lymphocytes Percent Auto 34.2 % (18.3-44.2); Mean Corpuscular HGB Conc 33.6 g/dl (32-36); Mean Corpuscular Hemoglobin 30.7 pg (26-34); Mean Corpuscular Volume 91.2 fl (80-100); Mean Platelet Volume 9.6 fl (7.4-10.4); Monocytes Absolute Auto 0.4 K/mm3 (0.1-0.6); Monocytes Percent Auto 7.9 % (2.6-8.5); Neutrophils Absolute Auto 2.7 K/mm3 (1.3-6.7); Neutrophils Percent Auto 48.3 % (45.5-73.1); Platelet Count Result 197 k/mm3 (150-375); Red Blood Count 4.86 M/mm3 (4.6-6.20); Red Cell Distribution Width 12.4 % (11.5-14.5); White Blood Count 5.6 K/mm3 (4.5-10.0)
[2023-03-01 16:18] LABS: Alanine Aminotransferase 23 U/L (6-50); Albumin Level 4.3 g/dL (3.5-5.1); Alkaline Phosphatase 65 U/L (38-126); Anion Gap 8 mmol/L (8-16); Aspartate Amino Transferase 27 U/L (17-59); Bilirubin,Total 0.7 mg/dL (0.2-1.3); Blood Urea Nitrogen 14 mg/dL (9-20); Calcium 9.4 mg/dL (8.4-10.2); Carbon Dioxide 28 mmol/L (22-30); Chloride 101 mmol/L (98-107); Estimated CRCL calculation 65 ml/min; Estimated Glomerular Filt Rate > 60; Glucose 115 mg/dL (65-110); Magnesium 1.9 mg/dL (1.6-2.3); Potassium 4.1 mmol/L (3.4-5.0); Sodium 137 mmol/L (137-145)
[2023-03-01 16:29] LABS: NT Pro B Type Natriuretic Pept 3510 pg/mL (19.9-100); Troponin I 0.014 ng/mL (0.000-0.034)
[2023-03-01 16:44] LABS: Influenza A QL RT-PCR Negative (Negative); Influenza B QL RT-PCR Negative (Negative); RSV RNA, RT-PCR Negative (Negative); SARS-CoV-2 RNA PCR Negative (Negative)
[2023-03-01] MEDS: FUROSEMIDE INJ 40 MG/4 ML VIAL 20 MG IV PUSH (18:01)
== END 2023-03-01 19:01 | disposition left against medical advice (07) ==
PROVIDERS: Emergency Provider Nurse Practitioner Family; PCP Emergency Medicine
DX: J44.1 Chronic obstructive pulmonary disease with (acute) exacerbation (principal); I50.9 Heart failure, unspecified; Z87.891 Personal history of nicotine dependence; Z20.822 Contact with and (suspected) exposure to COVID-19
CPT/HCPCS: 36415; 71046; 80053; 83735; 83880; 84484; 85025; 87637; 93005; 94640; 96361; 96374; 96375; 99284; J1100; J1940; J7030

== ENCOUNTER 2023-05-06 05:09 | Emergency (ER) | payer MEDICARE, MEDICAID, SELFPAY ==
--- NOTE | ~2023-05-06 | XR_ITS ---
Portable chest x-ray Comparison: 03/01/2023 Clinical History: Shortness of breath Findings: Lungs are clear, without focal consolidation or pleural effusion. Cardiomediastinal silho uette is stable. Bones and soft tissues are unremarkable. Impression: Clear lungs. Cardiomegaly. Reviewed, dictated and finalized at location . [employer] Impression: Clear lungs. Cardiomegaly.
--- NOTE | 2023-05-06 05:12 | ECG_ITS ---
Measurements Intervals [place] Rate: 86 P: 23 CT: 144 QRS: 0 QRSD: 110 T: 127 QT: 359 QTc: 430 Interpretive Statements SINUS RHYTHM WITH MARKED SINUS ARRHYTHMIA FREQUENT ATRIAL PREMATURE COMPLEXES POSSIBLE LEFT ATRIAL ENLARGEMENT INTRAVENTRICULAR CONDUCTION DELAY LEFT VENTRICULAR HYPERTROPHY AND ST-T CHANGE ABNORMAL ECG COMPARED TO ECG 03/01/2023 15:58:01 ATRIAL PREMATURE COMPLEXES NOW PRESENT Electronically Signed On 05-06-2023 6:55:58 [employer] by Malik Lee D.O.
[2023-05-06 05:24] VITALS: BP 183/104; PULSE 100; RESP 22; TEMP 36.7; O2SAT 100
[2023-05-06 06:14] LABS: Influenza A QL RT-PCR Negative (Negative); Influenza B QL RT-PCR Positive (Negative); RSV RNA, RT-PCR Negative (Negative); SARS-CoV-2 RNA PCR Negative (Negative)
[2023-05-06 06:15] VITALS: BP 144/99; PULSE 78; RESP 19; O2SAT 97
[2023-05-06 06:39] VITALS: BP 150/97; PULSE 80; RESP 16; O2SAT 96
--- NOTE | 2023-05-06 06:40 | ED.GENADULT ---
HPI - General Adult General Chief complaint: Shortness of Breath/Dyspnea Stated complaint: sob Time Seen by Provider: 05/06/23 06:30 History of Present Illness HPI narrative: Patient 67-year-old gentleman presents emergency department with chief complaint of cough and shortness of breath. The patient reports he has prior history of COPD and reports that he has had a cough and has been wheezing more lately the patient reports he has been using his albuterol inhaler without complete success but the albuterol does help him feel better. Patient denies fever does report that he has been having difficulty sleeping during the difficulty breathing. Related Data Home Medications Medication Instructions Recorded Confirmed albuterol sulfate 90 mcg/actuation inhalation 02/10/21 aerosol inhaler budesonide-formoterol HFA 160 inhalation 02/10/21 02/10/21 mcg-4.5 mcg/actuation aerosol inhaler (Symbicort) Allergies Allergy/AdvReac Type Severity Reaction Status Date / Time Sulfa (Sulfonamide Allergy Mild Hives Verified 05/06/23 06:26 Antibiotics) Review of Systems Review of Systems: A 10 system review of systems was completed on the patient and is negative except for what is stated in the HPI. Nursing and ancillary documentation was reviewed. [facility] Past Medical History Medical History Bronchitis Nose fracture Toe fracture, left multiple toes Surgical History Surgical History History of tonsillectomy Social History Social History Years smoked: 5 Smoking status: Former smoker Gender identity (if verbalized by the patient): Male Exam Narrative: GENERAL: Well-appearing, well-nourished, and in no acute distress. HEAD: Normocephalic, atraumatic. EYES: PERRLA and EOMI. ENT: Nares clear, no rhinorrhea or epistaxis. Mucous membranes moist. NECK: Supple. CHEST: Clear to auscultation. No respiratory distress. HEART: Regular rate and rhythm. No murmur heard. Normal peripheral pulses. ABDOMEN: Soft, nontender, nondistended, normal active bowel sounds. EXTREMITIES: Normal range of motion. No edema. SKIN: Warm, dry, no rash. NEURO: No focal deficits. Alert and oriented x3. PSYCH: Normal mood and affect. Course Vital Signs Vital signs: Vital Signs Temperature 36.7 C 05/06/23 05:24 Pulse Rate 100 05/06/23 05:24 Respiratory Rate 22 H 05/06/23 05:24 Blood Pressure 183/104 H 05/06/23 05:24 Pulse Oximetry 100 05/06/23 05:24 Oxygen Delivery Room Air 05/06/23 05:24 Temperature 36.7 C 05/06/23 05:24 Pulse Rate 90 05/06/23 06:58 Respiratory Rate 19 05/06/23 06:58 Blood Pressure 150/97 H 05/06/23 06:39 Pulse Oximetry 96 05/06/23 06:39 Oxygen Delivery Room Air 05/06/23 06:15 Medical Decision Making MDM Narrative Medical decision making narrative: Differential diagnosis includes COPD exacerbation, pneumonia, influenza like illness, since COVID, RSV Patient received 60 mg of p.o. prednisone and a DuoNeb in the ER. The patient was positive for influenza B Chest x-ray was obtained and the patient will be discharged home on prednisone and Tamiflu Vital Signs Vital Signs: Vital Signs Temperature 36.7 C 05/06/23 05:24 Pulse Rate 100 05/06/23 05:24 Respiratory Rate 22 H 05/06/23 05:24 Blood Pressure 183/104 H 05/06/23 05:24 Pulse Oximetry 100 05/06/23 05:24 Oxygen Delivery Room Air 05/06/23 05:24 Temperature 36.7 C 05/06/23 05:24 Pulse Rate 90 05/06/23 06:58 Respiratory Rate 19 05/06/23 06:58 Blood Pressure 150/97 H 05/06/23 06:39 Pulse Oximetry 96 05/06/23 06:39 Oxygen Delivery Room Air 05/06/23 06:15 Lab Data Labs: Lab Results 05/06/23 Range/Units 05:22 Influenza A (RT-PCR) Negative (Negative) Inf
[2023-05-06 06:49] VITALS: PULSE 88; RESP 16
[2023-05-06] MEDS: IPRATROPIUM 0.5 MG/ALBUTEROL SULFATE 2.5 MG AMPUL.NEB 3 ML INHALATION (06:49)
[2023-05-06] MEDS: predniSONE 20 MG TABLET 60 MG PO (06:55)
[2023-05-06 06:58] VITALS: PULSE 90; RESP 19
[2023-05-06 07:17] VITALS: BP 154/98; PULSE 72; RESP 22; TEMP 36.7; O2SAT 98
== END 2023-05-06 07:26 | disposition home or self-care (01) ==
LOC: ANHED 07:25
PROVIDERS: Emergency Provider Emergency Medicine; PCP Emergency Medicine
DX: J10.1 Influenza due to other identified influenza virus with other respiratory manifestations (principal); J44.9 Chronic obstructive pulmonary disease, unspecified; Z20.822 Contact with and (suspected) exposure to COVID-19; Z87.891 Personal history of nicotine dependence; I49.1 Atrial premature depolarization; I45.9 Conduction disorder, unspecified; R94.31 Abnormal electrocardiogram [ECG] [EKG]; I51.7 Cardiomegaly
CPT/HCPCS: 71045; 87637; 93005; 94640; 99283; J7512

== ENCOUNTER 2023-05-15 03:14 | Emergency (ER) | payer MEDICARE, MEDICAID, SELFPAY ==
--- NOTE | ~2023-05-15 | XR_ITS ---
Portable chest x-ray Comparison: 05/06/2023 Clinical History: Shortness of breath Findings: Lungs are clear, without focal consolidation or pleural effusion. Cardiomediastinal silho uette is stable. Bones and soft tissues are unremarkable. Impression: Clear lungs. Reviewed, dictated and finalized at location . [facility] Impression: Clear lungs.
[2023-05-15 03:17] VITALS: BP 171/106; PULSE 82; RESP 20; TEMP 36.6; O2SAT 100
[2023-05-15 03:26] VITALS: O2SAT 98
[2023-05-15 03:43] LABS: Basophils Absolute Auto 0.1 K/mm3 (0.0-0.1); Basophils Percent Auto 0.6 % (0.2-1.2); Eosinophils Absolute Auto 0.5 K/mm3 (0-0.3); Hematocrit 42.6 % (42.0-52.0); Hemoglobin 14.1 g/dL (14.0-18.0); Immature Granulocyte Absolute 0.03 K/mm3 (0.00-0.031); Immature Granulocyte Percent A 0.3 % (0-0.5); Lymphocytes Absolute Auto 3.13 K/mm3 (0.9-3.2); Lymphocytes Percent Auto 36.1 % (18.3-44.2); Mean Corpuscular HGB Conc 33.1 g/dl (32-36); Mean Corpuscular Hemoglobin 30.4 pg (26-34); Mean Corpuscular Volume 91.8 fl (80-100); Mean Platelet Volume 9.6 fl (7.4-10.4); Monocytes Absolute Auto 0.7 K/mm3 (0.1-0.6); Monocytes Percent Auto 7.5 % (2.6-8.5); Neutrophils Absolute Auto 4.3 K/mm3 (1.3-6.7); Neutrophils Percent Auto 49.5 % (45.5-73.1); Platelet Count Result 233 k/mm3 (150-375); Red Blood Count 4.64 M/mm3 (4.6-6.20); Red Cell Distribution Width 12.5 % (11.5-14.5); White Blood Count 8.7 K/mm3 (4.5-10.0)
--- NOTE | 2023-05-15 03:44 | ED.GENADULT ---
HPI - General Adult General Chief complaint: Shortness of Breath/Dyspnea Stated complaint: sob Time Seen by Provider: 05/15/23 03:29 History of Present Illness HPI narrative: This is a 67-year-old homeless male with COPD for shortness of breath. Patient was treated here about 2 weeks ago for COPD exacerbation. Says he was given a prescription for Bactrim which he has stopped taking due to itching. Since then he has only intermittently been using his inhalers and noticed tonight that he had some shortness of breath. Patient is requesting a alternate set of antibiotics. Patient denies other complaints this time. Related Data Home Medications Medication Instructions Recorded Confirmed albuterol sulfate 90 mcg/actuation inhalation 02/10/21 aerosol inhaler budesonide-formoterol HFA 160 inhalation 02/10/21 02/10/21 mcg-4.5 mcg/actuation aerosol inhaler (Symbicort) Allergies Allergy/AdvReac Type Severity Reaction Status Date / Time Sulfa (Sulfonamide Allergy Mild Itching Verified 05/15/23 03:22 Antibiotics) [facility] Past Medical History Medical History Bronchitis Nose fracture Toe fracture, left multiple toes Surgical History Surgical History History of tonsillectomy Social History Social History Years smoked: 5 Smoking status: Former smoker Gender identity (if verbalized by the patient): Male Exam Narrative: APPEARANCE: Well-appearing male Head: atraumatic. EYES: EOMI, NOSE: Atraumatic NECK: Trachea midline RESPIRATORY: patient is speaking in full sentences, no accessory muscle use, very mild wheezing in all story. CARDIOVASCULAR: RRR, no edema ABDOMINAL: Non-distended MUSCULOSKELETAl: No obvious deformities NEURO: Alert. Moving 4/4 extremities SKIN:: Warm, dry. Normal color PSYCHIATRIC: Normal affect Course Vital Signs Vital signs: Vital Signs Temperature 98 F 05/15/23 03:17 Pulse Rate 82 05/15/23 03:17 Respiratory Rate 20 05/15/23 03:17 Blood Pressure 171/106 H 05/15/23 03:17 Pulse Oximetry 100 05/15/23 03:17 Oxygen Delivery Room Air 05/15/23 03:17 Temperature 98 F 05/15/23 03:17 Pulse Rate 82 05/15/23 03:17 Respiratory Rate 20 05/15/23 03:17 Blood Pressure 171/106 H 05/15/23 03:17 Pulse Oximetry 98 05/15/23 03:26 Oxygen Delivery Room Air 05/15/23 03:26 Medical Decision Making MDM Narrative Medical decision making narrative: -Course: 67-year-old homeless male presenting for shortness of breath. He on exam he has got some very mild wheezing but is in no respiratory distress and has stable vital signs. Given a breathing treatment. He is requesting alternate antibiotics. Will be discharged on doxycycline -DDX includes but is not limited to: COPD exacerbation, pneumonia, bronchitis, URI -Co-morbidities complicating care: COPD, homeless -Social determinants of health: homeless a venkata -Independent interpretation of studies: chest x-ray showed no change from previous. -Interventions: DuoNeb treatment, dexamethasone, -Shared decision making / Disposition: discharge -RX doxycycline Vital Signs Vital Signs: Vital Signs Temperature 98 F 05/15/23 03:17 Pulse Rate 82 05/15/23 03:17 Respiratory Rate 20 05/15/23 03:17 Blood Pressure 171/106 H 05/15/23 03:17 Pulse Oximetry 100 05/15/23 03:17 Oxygen Delivery Room Air 05/15/23 03:17 Temperature 98 F 05/15/23 03:17 Pulse Rate 82 05/15/23 03:17 Respiratory Rate 20 05/15/23 03:17 Blood Pressure 171/106 H 05/15/23 03:17 Pulse Oximetry 98 05/15/23 03:26 Oxygen Delivery Room Air 05/15/23 03:26 Lab Data 05/15/23 03:36 05/15/23 03:36 Labs: Lab Results 05/15/23 Range/Units 03:36 WBC Pending RBC
[2023-05-15 03:58] LABS: Alanine Aminotransferase 21 U/L (6-50); Albumin Level 3.9 g/dL (3.5-5.1); Alkaline Phosphatase 74 U/L (38-126); Anion Gap 8 mmol/L (8-16); Aspartate Amino Transferase 24 U/L (17-59); Bilirubin,Total 0.6 mg/dL (0.2-1.3); Blood Urea Nitrogen 18 mg/dL (9-20); Calcium 9.2 mg/dL (8.4-10.2); Carbon Dioxide 27 mmol/L (22-30); Chloride 103 mmol/L (98-107); Estimated CRCL calculation 80 ml/min; Estimated Glomerular Filt Rate > 60; Glucose 111 mg/dL (65-110); Sodium 138 mmol/L (137-145)
[2023-05-15 04:01] VITALS: PULSE 82; RESP 19
[2023-05-15] MEDS: IPRATROPIUM 0.5 MG/ALBUTEROL SULFATE 2.5 MG AMPUL.NEB 3 ML INHALATION (04:01)
[2023-05-15 04:06] VITALS: PULSE 84; RESP 19
[2023-05-15 04:16] VITALS: BP 163/82; PULSE 63; RESP 17; O2SAT 99
[2023-05-15 04:17] LABS: Influenza A QL RT-PCR Negative (Negative); Influenza B QL RT-PCR Negative (Negative); RSV RNA, RT-PCR Negative (Negative); SARS-CoV-2 RNA PCR Negative (Negative)
== END 2023-05-15 04:18 | disposition home or self-care (01) ==
PROVIDERS: Emergency Provider Emergency Medicine; PCP Emergency Medicine
DX: J44.9 Chronic obstructive pulmonary disease, unspecified (principal); Z20.822 Contact with and (suspected) exposure to COVID-19; Z87.891 Personal history of nicotine dependence; Z59.00 Homelessness unspecified
CPT/HCPCS: 36415; 71045; 80053; 85025; 87637; 94640; 96374; 99284; J1100

== ENCOUNTER 2023-06-28 17:59 | Inpatient (IN) | payer MEDICARE, MEDICAID, SELFPAY ==
[2023-06-28] VITALS (7 sets, daily range): BP systolic 148–155; BP diastolic 100–115; PULSE 87–99; RESP 18–26; TEMP 36.6–36.8; O2SAT 97–100; BMI 31.6
--- NOTE | ~2023-06-28 | CT_ITS ---
EXAMINATION: CTA chest PE protocol DATE: 06/28/2023 20:51 INDICATION: pe TECHNIQUE: Computed tomography angiography (CTA) of the chest was performed with 100 mL Omnipaque-350 intravenous contrast timed to evaluate the pulmonary arteries. Coronal maximum intensity projection 3D-reconstructions were created by the technologist. The dose-length product (DLP) was 496.00 mGy-cm. Automated exposure control and iterative reconstruction technique were employed. COMPARISON: 04/19/2019; x-ray chest, same date[. FINDINGS: Lung parenchyma and airways: Septal thickening. Minimal medial right middle lobe atelectasis. Scatter ed sub-6 mm pulmonary nodules, not confidently identified in the prior study although motion artifact in the prior obscure small pulmonary nodules. Pleura: Small bilateral pleural effusions. Thoracic inlet, axillae and chest wall: Unremarkable. Thoracic aorta: No significant dilation. No dissection. Mild calcified and noncalcified aortic plaque Mediastinum: Calcified mediastinal lymph nodes. Prominent central pulmonary arteries as can be seen w ith pulmonary arterial hypertension. Heart and pericardium: Cardiomegaly. Coronary artery calcifications: Mild. Upper abdomen: No significant finding. Bones: No acute osseous finding. Pulmonary arteries: Study quality: Adequate. No pulmonary emboli detected. IMPRESSION: No CT evidence of acute pulmonary embolus. Moderate interstitial pulmonary edema. No focal consolidation. Small bilateral pleural effusions. No pericardial effusion, the prior chest radiograph findings were likely related to artifact. Multiple sub-6 mm pulmonary nodules requiring no additional follow-up unless the patient is at high r isk, in which case consider an optional low-dose noncontrast CT of the chest in one year. Reviewed, dictated and finalized at location K. IMPRESSION: No CT evidence of acute pulmonary embolus. Moderate interstitial pulmonary edema. No focal consolidation. Small bilateral pleural effusions. No pericardial effusion, the prior chest radiograph findings were likely relate d to artifact. Multiple sub-6 mm pulmonary nodules requiring no additional follow-up unless th e patient is at high risk, in which case consider an optional low-dose noncontr ast CT of the chest in one year.
--- NOTE | ~2023-06-28 | XR_ITS ---
EXAMINATION: XR chest 2V Exam Date/Time: 06/28/2023 18:50 CDT HISTORY: Chest Pain and SOB Comparison: 05/15/2023, 03/01/2023. RESULT: Lines, tubes, and devices: None. Lungs and pleura: Mild diffuse reticular opacities. Subsegmental right lower lung opacity, likely ri ght middle lobe. Minimal bilateral costophrenic angle blunting. Cardiomediastinal silhouette: Interval enlargement of the heart shadow possibly due to pericardial e ffusion. Other: No acute osseous or upper abdominal finding. IMPRESSION: Possible pericardial effusion. Subsegmental right basilar atelectasis/consolidation. Moderate interst itial edema. Trace bilateral pleural effusions. Reviewed, dictated and finalized at location K. IMPRESSION: Possible pericardial effusion. Subsegmental right basilar atelectasis/consolida tion. Moderate interstitial edema. Trace bilateral pleural effusions.
--- NOTE | 2023-06-28 18:29 | ECG_ITS ---
Measurements Intervals [place] Rate: 97 P: 35 [place]: 172 QRS: -14 QRSD: 105 T: 119 QT: 354 QTc: 451 Interpretive Statements SINUS RHYTHM POSSIBLE LEFT ATRIAL ENLARGEMENT LEFT VENTRICULAR HYPERTROPHY AND ST-T CHANGE BORDERLINE ECG COMPARED TO ECG 05/06/2023 05:17:42 NO SIGNIFICANT CHANGES Electronically Signed On 06-28-2023 19:00:23 CDT by Malik Lee D.O.
[2023-06-28 18:48] LABS: Basophils Absolute Auto 0.1 K/mm3 (0.0-0.1); Basophils Percent Auto 0.7 % (0.2-1.2); Eosinophils Absolute Auto 0.2 K/mm3 (0-0.3); Eosinophils Percent Auto 2.5 % (0-4.4); Hematocrit 41.2 % (42.0-52.0); Hemoglobin 13.6 g/dL (14.0-18.0); Immature Granulocyte Absolute 0.02 K/mm3 (0.00-0.031); Immature Granulocyte Percent A 0.2 % (0-0.5); Lymphocytes Absolute Auto 2.88 K/mm3 (0.9-3.2); Lymphocytes Percent Auto 32.5 % (18.3-44.2); Mean Corpuscular Hemoglobin 31.1 pg (26-34); Mean Corpuscular Volume 94.1 fl (80-100); Mean Platelet Volume 9.6 fl (7.4-10.4); Monocytes Absolute Auto 0.5 K/mm3 (0.1-0.6); Monocytes Percent Auto 5.5 % (2.6-8.5); Neutrophils Absolute Auto 5.2 K/mm3 (1.3-6.7); Neutrophils Percent Auto 58.6 % (45.5-73.1); Platelet Count Result 209 k/mm3 (150-375); Red Blood Count 4.38 M/mm3 (4.6-6.20); Red Cell Distribution Width 13.2 % (11.5-14.5); White Blood Count 8.9 K/mm3 (4.5-10.0)
[2023-06-28 18:58] LABS: INR 1.2; Prothrombin Time 15.9 Seconds (11.1-14.7)
[2023-06-28 19:00] LABS: Partial Thromboplastin Time 34.2 Seconds (22.3-36.8)
[2023-06-28 19:08] LABS: Alanine Aminotransferase 34 U/L (6-50); Albumin Level 4.1 g/dL (3.5-5.1); Alkaline Phosphatase 71 U/L (38-126); Anion Gap 7 mmol/L (8-16); Aspartate Amino Transferase 39 U/L (17-59); Bilirubin,Total 1.2 mg/dL (0.2-1.3); Blood Urea Nitrogen 24 mg/dL (9-20); Calcium 9.5 mg/dL (8.4-10.2); Carbon Dioxide 24 mmol/L (22-30); Chloride 108 mmol/L (98-107); Estimated CRCL calculation 48 ml/min; Estimated Glomerular Filt Rate 47; Glucose 89 mg/dL (65-110); Lipase 64 U/L (23-300); Potassium 4.5 mmol/L (3.4-5.0); Sodium 139 mmol/L (137-145)
[2023-06-28 19:18] LABS: Troponin I 0.034 ng/mL (0.000-0.034)
--- NOTE | 2023-06-28 20:06 | ED.WEAKNESS ---
HPI - Weakness General Chief complaint: Weakness Stated complaint: Weakness Time Seen by Provider: 06/28/23 20:03 History of Present Illness HPI Narrative: Patient is a 68-year-old male with history of COPD here with exertional shortness of breath and generalized fatigue. He states that the symptoms began about 2-3 days ago and are progressively worsening to the point where he had to stop and catch his breath while walking into the ER today. He has had some associated bilateral lower extremity swelling. He denies nasal congestion, cough, fever, chills. No known sick contacts. He denies chest pain. No known cardiac history. 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 He notes he does feel dehydrated. Related Data Home Medications Medication Instructions Recorded Confirmed albuterol sulfate 90 mcg/actuation 90 mcg inhalation QID 02/10/21 06/28/23 aerosol inhaler budesonide-formoterol HFA 160 2 puff inhalation BID 02/10/21 06/28/23 mcg-4.5 mcg/actuation aerosol inhaler (Symbicort) phenylephrine-acetaminophen 5 1 tablet PO Q4-6H PRN Headache 06/28/23 06/28/23 mg-325 mg tablet Allergies Allergy/AdvReac Type Severity Reaction Status Date / Time Sulfa (Sulfonamide Allergy Mild Itching Verified 06/28/23 18:31 Antibiotics) Review of Systems Review of Systems: All systems reviewed & are unremarkable except as noted in HPI and below PMFSH Past Medical History Medical History (Updated 06/29/23 @ 07:04 by Molly Klein DO) Bronchitis Nose fracture Severe chronic obstructive pulmonary disease With good response to bronchodilator noted on PFTs 10/2020 Toe fracture, left multiple toes Surgical History Surgical History History of tonsillectomy Social History Social History (Updated 06/29/23 @ 08:52 by Molly Klein DO) Social History: Patient was 3 times. His last between 3 and 5 years ago cancer. He then had a girlfriend who also developed cancer and in August of 2022. 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 He briefly smoked when he was younger. He denies any significant alcohol use. He denies any illicit substance use. Code status: DNR/DNI (per patient request) The patient reports he does not have a surrogate decision maker and has no family members left. He does not have any friends he feels close enough to ask to make that type of decision. Years smoked: 5 Smoking status: Former smoker Alcohol intake: never Substance use: never Do You Feel Safe in your Home?: Yes Lack of Transportation: No Lack of Food: Never True Current Housing: I Do Not Have Housing Concerned About Future Housing: No Difficulty Paying Gas/Electric Bills: No Difficulty Paying for Meds: No Currently Unemployed: No Education: Trade/Vocational Certificate Difficulty w/ Childcare or Family Care: No Gender identity (if verbalized by the patient): Male Spiritual care concerns: No Exam Narrative: GENERAL: Well-appearing, well-nourished, and in no acute distress. HEAD: Normocephalic, atraumatic. EYES: PERRLA and EOMI. ENT: Nares clear. Mucous membranes moist. NECK: Supple. CHEST: Faint bilateral wheeze. No respiratory distress. HEART: Regular rate and rhythm. Normal peripheral pulses. ABDOMEN: Soft, nontender, nondistended. EXTREMITIES: Normal range of motion. Bilateral pedal edema, no calf tenderness.. SKIN: Warm, dry, no rash. NEURO: No focal deficits. Alert and oriented x3. PSYCH: Normal mood and affect. Course Course Emergency Course: Chart review performed. Patient here with weakness for about 2 days and fatigue. Additionally complainin
--- NOTE | 2023-06-28 20:24 | PC.NURSE ---
edp dr. abreu stated no dose required for aspirin PO for pt.
[2023-06-28] MEDS: IPRATROPIUM 0.5 MG/ALBUTEROL SULFATE 2.5 MG AMPUL.NEB 3 ML INHALATION (20:32)
[2023-06-28] MEDS: LACTATED RINGERS 1,000 ML 999 ML IV CONT (20:34)
[2023-06-28 20:49] LABS: NT Pro B Type Natriuretic Pept 12500 pg/mL (19.9-100)
--- NOTE | 2023-06-28 20:55 | PC.NURSE ---
per edp lactated ringer bolus was paused.
[2023-06-28 21:03] LABS: Influenza A QL RT-PCR Negative (Negative); Influenza B QL RT-PCR Negative (Negative); RSV RNA, RT-PCR Negative (Negative); SARS-CoV-2 RNA PCR Negative (Negative)
[2023-06-28 21:54] LABS: Troponin I 0.028 ng/mL (0.000-0.034)
[2023-06-28] MEDS: FUROSEMIDE INJ 40 MG/4 ML VIAL IV PUSH (22:23)
[2023-06-29] VITALS (12 sets, daily range): BP systolic 123–152; BP diastolic 83–98; PULSE 57–98; RESP 16–20; TEMP 36.4–37; O2SAT 95–99
[2023-06-29 06:36] LABS: Hematocrit 43.3 % (42.0-52.0); Hemoglobin 13.9 g/dL (14.0-18.0); Mean Corpuscular HGB Conc 32.1 g/dl (32-36); Mean Corpuscular Hemoglobin 30.4 pg (26-34); Mean Corpuscular Volume 94.7 fl (80-100); Mean Platelet Volume 9.7 fl (7.4-10.4); Platelet Count Result 209 k/mm3 (150-375); Red Blood Count 4.57 M/mm3 (4.6-6.20); Red Cell Distribution Width 13.3 % (11.5-14.5); White Blood Count 8.6 K/mm3 (4.5-10.0)
--- NOTE | 2023-06-29 06:43 | PM.IMHP ---
H&P: HPI History of Present Illness Date/Time: 06/29/23 06:43 Chief Complaint: Weakness Narrative: 68-year-old male with past medical history of COPD/asthma overlap, chronic lung disease and prior asbestos exposure who presented to the ER with generalized weakness for 2 days. The patient reported that the symptoms are accompanied by tightness in the center of his chest and increased shortness of breath more so than usual. He has a reported subjective feeling of being dehydrated. Labs performed in the ER did demonstrate acute kidney injury with creatinine of 1.5 increased from baseline of 1. Troponin that was within normal range and new elevation of BNP of 12,000. Chest x-ray demonstrated possible pericardial effusion, subsegmental right basilar atelectasis or consolidation and moderate interstitial edema with trace bilateral pleural effusions. Due to concern for possible pulmonary embolism a CTA of the chest was performed which demonstrated no pulmonary embolism but moderate interstitial pulmonary edema without consolidation and small bilateral pleural effusions. No evidence of pericardial effusion. Patient was admitted the hospital for evaluation of acute/new onset CHF. Patient was given 1 dose of IV Lasix in the ER and by the time he had arrived to the medical floor the patient had already had greater than 1 L of urine output according to nursing report. Patient reports that his legs have been swollen for a couple of months. However he did not start feeling short of breath until last couple of days. Shortness of breath is worse with exertion. He has also been more weak and had significant fatigue. He has had a history of elevated blood pressures in the past but has not been eating a good diet since he has been homeless since his girlfriend last August. He has been living out of his car. 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 He does also receive a so security check from his after her . He has had a lot of grief over the last several years between his mother dying followed by his 's less than a year later and then his girlfriend's a couple of years after that. He denies feeling depressed but is still dealing with some of his grief. Review of Systems Review of Systems: 12 systems were reviewed with pertinent positives and negatives per HPI. Except as documented in the HPI, all other systems were reviewed and are negative. FORMERLY [facility], [facility]–1983 Past Medical History Medical History Bronchitis Nose fracture Severe chronic obstructive pulmonary disease With good response to bronchodilator noted on PFTs 10/2020 Toe fracture, left multiple toes Surgical History Surgical History History of tonsillectomy Family History Family History (Updated 06/29/23 @ 21:13 by Molly Klein DO) Mother , in her 80s Cancer Diabetes mellitus Father , at 83 years old Acute myocardial infarction Biventricular ICD (implantable cardioverter-defibrillator) in place Social History Social History (Updated 06/29/23 @ 08:52 by Molly Klein DO) Social History: Patient was 3 times. His last between 3 and 5 years ago cancer. He then had a girlfriend who also developed cancer and in August of 2022. 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 He briefly smoked when he was younger. He denies any significant alcohol use. He denies any illicit substance use. Code status: DNR/DNI (per patient request) The patient reports he does not have a surrogate decision maker and has no family members left. He does not have any friends he feels close
[2023-06-29 06:54] LABS: Anion Gap 5 mmol/L (8-16); Blood Urea Nitrogen 24 mg/dL (9-20); Calcium 9.6 mg/dL (8.4-10.2); Carbon Dioxide 29 mmol/L (22-30); Chloride 104 mmol/L (98-107); Estimated CRCL calculation 55 ml/min; Estimated Glomerular Filt Rate 55; Glucose 89 mg/dL (65-110); Potassium 3.9 mmol/L (3.4-5.0); Sodium 138 mmol/L (137-145)
[2023-06-29] MEDS: FLUTICASONE/SALMETEROL 115-21 MCG INHALER 1 PUFF 2 PUFF INHALATION ×2 (07:17→20:39)
[2023-06-29] MEDS: FUROSEMIDE INJ 40 MG/4 ML VIAL 20 MG IV PUSH (08:36)
--- NOTE | 2023-06-29 18:23 | PM.IMPN ---
Progress Note: A&P Assessment and Plan (1) New onset of congestive heart failure: Code(s): I50.9 - Heart failure, unspecified Status: Acute Assessment and Plan: Patient presents with weakness. CXR noted. BNP 48151. Trop negative x2 CTA chest was negative for PE but showed moderate pulmonary edema and small pleural effusions. EKG showing LVH Patient with new onset CHF. Lasix 40mg IV once in ED and started on Lasix 20mg IV daily Good UOP and clinical response Echo pending. (2) Essential hypertension: Code(s): I10 - Essential (primary) hypertension Status: Acute Assessment and Plan: Patient's blood pressure was reviewed on 06/28 Chart review shows elevated BP in the past. Not on anti-HTN medciations at home Blood pressure was elevated on admission but has trended down now. Will continue to monitor (3) Acute kidney injury: Code(s): N17.9 - Acute kidney failure, unspecified Status: Acute Assessment and Plan: Baseline Cr normal. Cr 1.5 on admission related to fluid overload and poor renal perfusion Lasix given with good response and probably improved contractility. Cr better at 1.3. Follow Further workup if Cr does not continue to improve as expected. (4) Severe chronic obstructive pulmonary disease: Code(s): J44.9 - Chronic obstructive pulmonary disease, unspecified Status: Acute Assessment and Plan: No wheezing. Remains on room air Continue Symbicort (or equivalent) Plan DVT Prophylaxis - lovenox Code status - DNR Subjective Date/time seen: 06/29/23 18:23 Interval history: 68yo male with COPD/asthma and chronic lung disease here for weakness. Patient feels better. SOB improved. No PEREZ. No CP. No cough. Decrease in the pedal edema. No wheezing. Exam Narrative: AF 97.9 123/83 86 18 97% ra Gen - NARD Chest - CTA bilaterally, nml RR. no wheezing CV - RRR S1/S2. Tele showing IVCD and PVCs Abd - Soft, NT/ND, Positive BS Ext - No pedal edema Psych - Nml mood and affect Skin - Warm and dry Objective Data Vital Signs Vital Signs: Vital Signs - 24 hr 06/28/23 18:26 06/28/23 20:32 06/28/23 20:42 Temperature 98.2 F Pulse Rate 99 95 96 Respiratory Rate 18 26 H 26 H Blood Pressure 155/115 H Pulse Oximetry 99 Oxygen Delivery Room Air Fraction of Inspired Oxygen 06/28/23 21:03 06/28/23 21:03 06/28/23 22:01 Temperature Pulse Rate 97 93 Respiratory Rate 21 H Blood Pressure Pulse Oximetry 99 97 Oxygen Delivery Room Air Fraction of Inspired Oxygen 06/28/23 22:54 06/28/23 23:18 06/29/23 00:00 Temperature 97.9 F Pulse Rate 89 87 Respiratory Rate 18 18 Blood Pressure 148/100 H Pulse Oximetry 100 99 Oxygen Delivery Room Air Fraction of Inspired Oxygen 06/29/23 00:00 06/29/23 04:00 06/29/23 06:43 Temperature 98.6 F Pulse Rate 98 73 58 L Respiratory Rate 16 Blood Pressure 142/90 H Pulse Oximetry 97 Oxygen Delivery Fraction of Inspired Oxygen 06/29/23 07:17 06/29/23 07:17 06/29/23 08:00 Temperature Pulse Rate 92 70 Respiratory Rate 20 Blood Pressure Pulse Oximetry 95 Oxygen Delivery Room Air Fraction of Inspired Oxygen 21 06/29/23 08:00 06/29/23 12:00 06/29/23 14:00 Temperature 97.9 F Pulse Rate 86 57 L Respiratory Rate 18 Blood Pressure 123/83 Pulse Oximetry 97 Oxygen Delivery Room Air Fraction of Inspired Oxygen 06/29/23 16:00 06/29/23 09:11 Temperature 97.5 F L Pulse Rate 86 61 Respiratory Rate 18 Blood Pressure 152/98 H Pulse Oximetry 95 Oxygen Delivery Fraction of Inspired Oxygen Intake/Output Intake/Output: Intake & Output 06/26/23 06/27/23 06/28/23 06/29/23 23:59 23:59 23:59 23:59 Intake Total 349.7 2000 Output Total 300 3000 Balance 49.7 -1000 Meds/Results Medications: Active Medications Generic Name Dose Route Start Last Admin Trade Name
[2023-06-29] MEDS: ENOXAPARIN 40 MG/0.4 ML SYRINGE SUB-Q (19:28)
[2023-06-30] VITALS (11 sets, daily range): BP systolic 131–160; BP diastolic 90–96; PULSE 67–100; RESP 18–21; TEMP 36.2–36.5; O2SAT 95–100
--- NOTE | 2023-06-30 06:00 | ECHO_ITS ---
Patient Info Name: Jeevan Castellanos Age: 68 years : 1955 Gender: Male Ht: 72 in Wt: 233 lbs BSA: 2.35 m2 HR: 95 bpm BP: 160 / 90 mmHg Technical Quality: Good Exam Date: 06/30/2023 9:47 AM Exam Location: Echo Lab Patient Status: Inpatient Admit Date: 06/28/2023 Staff Ordering Physician: Richa Lopez MD Digital Watch Assembler: Attending Provider: Molly Klein DO Exam Type: CA echo dop color flow w con Study Info Indications I50.20 - Unspecified systolic (congestive) heart failure Complete two-dimensional, color flow and Doppler transthoracic echocardiogram is performed with contrast to opacify the left ventricle and to improve the deliniation of the left ventricle endocardial borders. Contrast/Agitated Saline Contrast/Ag. Saline: Definity Amount: 1.00 ml Existing IV Access: Yes IV Access Condition: patent with no signs of infiltration Summary 1. Definity contrast administered improved wall motion interpretation. 2. Left ventricular chamber dimension is severely enlarged. 3. Left ventricular systolic function is severely globally reduced, estimated at 25-30%. 4. The left ventricular diastolic function is grade I diastolic dysfunction. 5. E/e' 8 is minimally elevated. 6. Left atrial chamber dimension is severely enlarged. 7. Right atrial chamber dimension is moderately enlarged. 8. There is mild aortic valve sclerosis. 9. There is mild aortic valve regurgitation. 10. There is moderate mitral valve regurgitation. 11. There is mild tricuspid valve regurgitation. 12. Mild pulmonary hypertension, estimated pulmonary arterial systolic pressure is 46 mmHg. Left Ventricle E/e' 8 is minimally elevated. Definity contrast administered improved wall motion interpretation. Left ventricular chamber dimension is severely enlarged. Left ventricular systolic function is severely globally reduced, estimated at 25-30%. The left ventricular diastolic function is grade I diastolic dysfunction. Right Ventricle Right ventricular systolic function is normal and with normal TAPSE 2.0 cm. Right ventricular chamber dimension is normal. Left Atria Left atrial chamber dimension is severely enlarged. Right Atria Right atrial chamber dimension is moderately enlarged. Aortic Valve The aortic valve is trileaflet. There is mild aortic valve sclerosis. There is no aortic valve stenosis. There is mild aortic valve regurgitation. Pulmonic Valve There is no pulmonic regurgitation. Mitral Valve There is no mitral valve stenosis. There is moderate mitral valve regurgitation. Tricuspid Valve There is mild tricuspid valve regurgitation. Mild pulmonary hypertension, estimated pulmonary arterial systolic pressure is 46 mmHg. Pericardium/Pleural There is no pericardial effusion. Inferior Vena Cava Normal inferior vena cava with >50% collapse upon inspiration consistent with normal right atrial pressure, 5 mmHg. Aorta The aortic root size at the sinus of Valsalva is normal. Left Ventricular Outflow Tract Name Value Normal LVOT 2D LVOT Diameter 2.14 cm LVOT Doppler LVOT Peak Gradient 4 mmHg LVOT Mean Gradient 2 mmHg
[2023-06-30 06:43] LABS: Anion Gap 6 mmol/L (8-16); Blood Urea Nitrogen 23 mg/dL (9-20); Calcium 9.3 mg/dL (8.4-10.2); Carbon Dioxide 27 mmol/L (22-30); Chloride 104 mmol/L (98-107); Estimated CRCL calculation 55 ml/min; Estimated Glomerular Filt Rate 55; Glucose 94 mg/dL (65-110); Potassium 3.7 mmol/L (3.4-5.0); Sodium 137 mmol/L (137-145)
[2023-06-30] MEDS: FLUTICASONE/SALMETEROL 115-21 MCG INHALER 1 PUFF 2 PUFF INHALATION ×2 (07:32→19:28)
[2023-06-30] MEDS: ENOXAPARIN 40 MG/0.4 ML SYRINGE SUB-Q (08:40)
[2023-06-30] MEDS: FUROSEMIDE INJ 40 MG/4 ML VIAL 20 MG IV PUSH (08:40)
[2023-06-30] MEDS: PERFLUTREN LIPID MICROSPHERES 1.5 ML VIAL DILUTED TO 10 ML TOTAL VOLUME IV PUSH (10:36)
--- NOTE | 2023-06-30 11:31 | IVDEFINITY ---
Prior to administration of IV Definity the patient was educated on the risks and benefits of the imaging enhancing agent including potential adverse side effects. The patient verbalized understanding. Allergies were verified. No exclusion criteria were identified and at least one of the following inclusion criteria were met: 1) physician request, 2) patient technically difficult to image (per the [place] [employer] Echocardi[employer] guidelines of two or more segments not discernable within the apical view), or 3) questionable left ventricular function. ?
--- NOTE | 2023-06-30 12:01 | PM.IMPN ---
Progress Note: A&P Assessment and Plan (1) New onset of congestive heart failure: Code(s): I50.9 - Heart failure, unspecified <Ericka Crooks Student - Last Filed: 06/30/23 15:59> Status: Acute <Ericka Crooks Student - Last Filed: 06/30/23 15:59> Assessment and Plan: Patient presents with weakness. CXR noted. BNP 29572. Trop negative x2 CTA chest was negative for PE but showed moderate pulmonary edema and small pleural effusions. EKG showing LVH Patient with new onset CHF. Lasix 40mg IV once in ED and started on Lasix 20mg IV daily Will switch to PO Lasix (06/29) Good UOP and clinical response Echo reveals enlarged left ventricle, left atria, and right atria. EF of 25-30%. Moderated mitral regurgitation. Mild pulmonary HTN. Will need to begin goal directed therapy; Started Coreg and Entresto Cardiology consulted, appreciate their recs <Ericka Crooks Student - Last Filed: 06/30/23 15:59> Patient presents with weakness. CXR noted. BNP 58442. Trop negative x2 CTA chest was negative for PE but showed moderate pulmonary edema and small pleural effusions. EKG showing LVH Patient with new onset CHF. Lasix 40mg IV once in ED and started on Lasix 20mg IV daily Will switch to PO Lasix (06/29) Good UOP and clinical response Echo reveals enlarged left ventricle, left atria, and right atria. EF of 25-30%. Moderate mitral regurgitation. Mild pulmonary HTN. Will need to begin goal directed therapy; Started Coreg and Entresto. Cardiology consulted, appreciate their recs <Mikey Osullivan MD - Last Filed: 06/30/23 17:36> (2) Essential hypertension: Code(s): I10 - Essential (primary) hypertension <Ericka Crooks Student - Last Filed: 06/30/23 15:59> Status: Acute <Ericka Crooks Student - Last Filed: 06/30/23 15:59> Assessment and Plan: Patient's blood pressure was reviewed on 06/29 Chart review shows elevated BP in the past. Not on anti-HTN medications at home Blood pressure was elevated on admission but has trended down now. Systolic BPs in 160s today (06/29). Will begin treatment of hypertension as part of his goal directed therapy Will continue to monitor <Ericka CherrieRoselyn Crooks Student - Last Filed: 06/30/23 15:59> (3) Acute kidney injury: Code(s): N17.9 - Acute kidney failure, unspecified <Ericka Crooks, Student - Last Filed: 06/30/23 15:59> Status: Acute <Ericka CherrieRoselyn Crooks, Student - Last Filed: 06/30/23 15:59> Assessment and Plan: Baseline Cr normal. Cr 1.5 on admission related to fluid overload and poor renal perfusion Lasix given with good response and probably improved contractility. Cr better at 1.3. Follow Further workup if Cr does not continue to improve as expected. <Ericka Crooks, Student - Last Filed: 06/30/23 15:59> (4) Severe chronic obstructive pulmonary disease: Code(s): J44.9 - Chronic obstructive pulmonary disease, unspecified <Ericka Crooks, Student - Last Filed: 06/30/23 15:59> Status: Acute <Ericka Crooks, Student - Last Filed: 06/30/23 15:59> Assessment and Plan: No wheezing. Remains on room air Continue Symbicort (or equivalent) <Ericka Crooks, Student - Last Filed: 06/30/23 15:59> Assessment and Plan: DVT Prophylaxis - lovenox Code status - DNR <Ericka Crooks Student - Last Filed: 06/30/23 15:59> Subjective Date/time seen: 06/30/23 12:01 <Ericka Crooks Student - Last Filed: 06/30/23 15:59> Interval history: 68 y/o male with PMHx of COPD here for shortness of breath and lower extremity swelling. Patient resting comfortably in bed this morning. Reports redness and mild swelling of his bilateral toes. No pain. Denies chest pain, shortness of breath, abdominal pain, nausea, vomiting, and diarrhea. Eating and drinking well. Ambulating without difficulty. <Jenifer
--- NOTE | 2023-06-30 16:56 | PM.CNCAR ---
Assessment and Plan Assessment and plan (1) Systolic heart failure: Code(s): I50.20 - Unspecified systolic (congestive) heart failure Status: Acute Assessment and Plan: Acute. BNP 12,500. Low risk profile for CAD. EKG unremarkable. He is being diuresed with Lasix IV changed to PO daily now. Started on Coreg and Entresto. If he can't afford Entresto then change to Valsartan. Will hold off on adding Jardiance and Spironolactone. Discuss risk for sudden cardiac arrest and Life vest to prevent that, and he did express some interest for it. Will place order. Obtain lexiscan myoview stress test in AM to r/o CAD. (2) Essential hypertension: Code(s): I10 - Essential (primary) hypertension Status: Acute Assessment and Plan: High. Starting on Coreg and Entresto. (3) Severe chronic obstructive pulmonary disease: Code(s): J44.9 - Chronic obstructive pulmonary disease, unspecified Status: Acute History of Present Illness History of Present Illness Consult date/time: 06/30/23 16:56 Reason For Visit: New onset CHF Narrative: 68 yr old man presented to ER with sob. He has a history of COPD, asbestosis. Reports that in last 2 days he noted more swelling of legs and progressively more sob. He does come in for breathing treatments every few months related to COPD, and feels better afterwards. Normally he can walk unlimited distance and can carry heavy loads. States since he got Lasix his swelling in legs resolved and his breathing is better. States in last 8 years he had some several deaths in family that has caused some depression. Denies chest pain, palpitations, dizziness. Review of Systems Constitutional: Constitutional: Reports as per HPI, Denies chills, Reports fatigue and Denies fever(s) Cardiovascular: Cardiovascular: Reports as per HPI, Denies chest pain and Denies irregular heart rhythm Respiratory: Respiratory: Reports as per HPI and Reports dyspnea Gastrointestinal: Gastrointestinal: Reports as per HPI and Denies abdominal pain Genitourinary: Genitourinary: Reports as per HPI and Denies dysuria Musculoskeletal: Musculoskeletal: Reports as per HPI Neurologic: Reports as per HPI, Denies dizziness and Denies syncope [facility] Past Medical History Medical History Bronchitis Nose fracture Severe chronic obstructive pulmonary disease With good response to bronchodilator noted on PFTs 10/2020 Toe fracture, left multiple toes Surgical History Surgical History History of tonsillectomy Family History Family History (Updated 06/29/23 @ 21:13 by Molly Klein DO) Mother , in her 80s Cancer Diabetes mellitus Father , at 83 years old Acute myocardial infarction Biventricular ICD (implantable cardioverter-defibrillator) in place Social History Social History (Updated 06/29/23 @ 08:52 by Molly Klein DO) Social History: Patient was 3 times. His last between 3 and 5 years ago cancer. He then had a girlfriend who also developed cancer and in August of 2022. 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 He briefly smoked when he was younger. He denies any significant alcohol use. He denies any illicit substance use. Code status: DNR/DNI (per patient request) The patient reports he does not have a surrogate decision maker and has no family members left. He does not have any friends he feels close enough to ask to make that type of decision. Years smoked: 5 Smoking status: Former smoker Alcohol intake: never Substance use: never Do You Feel Safe in your Home?: Yes Lack of Transportation:
[2023-06-30] MEDS: SACUBITRIL/VALSARTAN 24-26 MG TABLET 1 TAB PO (20:32)
[2023-06-30] MEDS: carvediloL 6.25 MG TABLET PO (20:32)
[2023-07-01] VITALS: PULSE 87
[2023-07-01 06:00] VITALS: BP 140/92; PULSE 61; RESP 20; TEMP 36.9; O2SAT 98
[2023-07-01 06:56] LABS: Albumin Level 3.8 g/dL (3.5-5.1); Anion Gap 7 mmol/L (8-16); Blood Urea Nitrogen 23 mg/dL (9-20); Calcium 9.2 mg/dL (8.4-10.2); Carbon Dioxide 25 mmol/L (22-30); Chloride 105 mmol/L (98-107); Estimated CRCL calculation 64 ml/min; Estimated Glomerular Filt Rate > 60; Glucose 110 mg/dL (65-110); Phosphorus 2.7 mg/dL (2.5-4.5); Potassium 4.2 mmol/L (3.4-5.0); Sodium 137 mmol/L (137-145)
--- NOTE | 2023-07-01 08:00 | PM.PNCARD ---
Progress Note: A&P Assessment and Plan (1) Systolic heart failure: Code(s): I50.20 - Unspecified systolic (congestive) heart failure Status: Acute Assessment and Plan: Acute. BNP 12,500. Low risk profile for CAD. EKG unremarkable. He is being diuresed with Lasix IV changed to PO daily now. Started on Coreg and Entresto. If he can't afford Entresto then change to Valsartan. Will hold off on adding Jardiance and Spironolactone. Discuss risk for sudden cardiac arrest and Life vest to prevent that, and he did express some interest for it. Will place order. Obtain lexiscan myoview stress test today. He wants to leave against medical advice to take care of personal issues. If he leaves we can do it as an outpatient. Have him f/u with me in 1 week. (2) Essential hypertension: Code(s): I10 - Essential (primary) hypertension Status: Acute Assessment and Plan: Stable. Starting on Coreg and Entresto. (3) Severe chronic obstructive pulmonary disease: Code(s): J44.9 - Chronic obstructive pulmonary disease, unspecified Status: Acute Subjective Date/time seen: 07/01/23 08:00 Interval history: He is feeling better and able to walk laps on the floor. No chest pain or sob. He wants to leave. Exam Const: General: cooperative, healthy appearing and comfortable Orientation/consciousness: oriented to person, oriented to place and oriented to time Resp: Auscultation: clear to auscultation bilaterally, no crackles, no rales, no rhonchi and no wheezes Cardio: Rate: regular rate Rhythm: regular rhythm Heart sounds: no murmurs Peripheral pulses: dorsalis pedis present Neuro: General: oriented to person, oriented to place and oriented to time Extrem: Right lower extremity: no edema Left lower extremity: no edema Objective Data Vital Signs Vital Signs: Vital Signs - 24 hr 06/30/23 12:00 06/30/23 13:52 06/30/23 16:00 Temperature 97.3 F L Pulse Rate 96 67 85 Respiratory Rate 18 Blood Pressure 140/96 H Pulse Oximetry 98 Oxygen Delivery 06/30/23 19:30 06/30/23 19:31 06/30/23 20:32 Temperature Pulse Rate 72 93 Respiratory Rate 18 Blood Pressure Pulse Oximetry 95 Oxygen Delivery Room Air 06/30/23 21:29 06/30/23 20:32 07/01/23 00:00 Temperature 97.2 F L Pulse Rate 81 79 87 Respiratory Rate 21 H Blood Pressure 131/92 H Pulse Oximetry 100 Oxygen Delivery 07/01/23 06:00 Temperature 98.4 F Pulse Rate 61 Respiratory Rate 20 Blood Pressure 140/92 H Pulse Oximetry 98 Oxygen Delivery Intake/Output Intake/Output: Intake & Output 06/28/23 06/29/23 06/30/23 07/01/23 23:59 23:59 23:59 23:59 Intake Total 349.7 2000 966 Output Total 300 3000 2700 800 Balance 49.7 -1000 -1734 -800 Meds/Results Medications: Active Medications Generic Name Dose Route Start Last Admin Trade Name Freq PRN Reason Stop Dose Admin Albuterol 2 puff 06/29/23 00:46 Albuterol Sulfate (*Sp) Aerosol 1 Puff INHALATION QIDRT PRN Shortness of breath Carvedilol 6.25 mg 06/30/23 21:00 06/30/23 20:32 Carvedilol 6.25 Mg Tablet PO 6.25 mg Q12HR SOLEDAD Administration Enoxaparin Sodium 40 mg 06/30/23 09:00 06/30/23 08:40 Enoxaparin 40 Mg/0.4 Ml Syringe SUB-Q 40 mg DAILY SOLEDAD Administration Furosemide 20 mg 07/01/23 09:00 Furosemide 20 Mg Tablet PO DAILY SOLEDAD Hydralazine HCl 10 mg 06/29/23 00:48 Hydralazine Hcl 20 Mg/Ml Vial IV PUSH Q4H PRN SBP greater than 160 Sacubitril/Valsartan 1 tab 06/30/23 21:00 06/30/23 20:32 Sacubitril/Valsartan 24-26 Mg Tablet PO 1 tab Q12HR SOLEDAD Administration Fluticasone/Salmeterol 2 puff 06/29/23 08:00 06/30/23 19:28 Fluticasone/Salmeterol 115-21 Mcg Inhaler 1 Puff INHALATION 2 puff Q12HRT SOLEDAD Administration Radiology Results: ITS Impressions Chest X-Ray 06/28/23 19:00 IMPRESSION: Possible pericardial effusion. Subsegmental right
--- NOTE | 2023-07-01 08:19 | PC.NURSE ---
patient took tele box off at 0400 and will not put back on. patient will be d/c today per his request
[2023-07-01] MEDS: FLUTICASONE/SALMETEROL 115-21 MCG INHALER 1 PUFF 2 PUFF INHALATION (10:06)
[2023-07-01 10:07] VITALS: PULSE 87; RESP 18; O2SAT 95
[2023-07-01 10:28] VITALS: PULSE 86
[2023-07-01] MEDS: carvediloL 6.25 MG TABLET PO (10:28)
[2023-07-01] MEDS: ENOXAPARIN 40 MG/0.4 ML SYRINGE SUB-Q (10:28)
[2023-07-01] MEDS: SACUBITRIL/VALSARTAN 24-26 MG TABLET 1 TAB PO (10:29)
[2023-07-01] MEDS: FUROSEMIDE 20 MG TABLET PO (10:29)
--- NOTE | 2023-07-01 11:18 | PM.DS ---
DS: Admitting Diagnosis Discharge Date 07/01/23 Admitting Diagnosis Weakness DS: Discharge Diagnosis Discharge Diagnosis (1) New onset of congestive heart failure: Code(s): I50.9 - Heart failure, unspecified Status: Acute (2) Essential hypertension: Code(s): I10 - Essential (primary) hypertension Status: Acute (3) Acute kidney injury: Code(s): N17.9 - Acute kidney failure, unspecified Status: Acute (4) Severe chronic obstructive pulmonary disease: Code(s): J44.9 - Chronic obstructive pulmonary disease, unspecified Status: Acute DS: Summary Hospital Course Reason for hospitalization: 68yo male with COPD here for shortness of breath and lower extremity swelling.?Please see H&P for details Hospital Course: Patient presents with weakness. CXR noted. BNP 77577.?Trop negative x2. CTA chest was negative for PE but showed moderate pulmonary edema and small pleural effusions. EKG showing LVH. Patient with new onset acute systolic and diastolic CHF. Lasix 40mg IV once in ED and started on Lasix 20mg IV daily. He did well good UOP and clinical response. He was switched to PO Lasix. Echo revealed enlarged left ventricle, left atria, and right atria. EF of 25-30%. Grade I diastolic dysfunction, mod mitral regurgitation. Mild pulmonary HTN. He was started on Coreg and Entresto. No wheezing with beta blockerCardiology consulted and recommended stress test but patient refused and wished to have this done as outpatient. He voiced the risk of waiting to have this test done. Not on anti-HTN medications at home Blood pressure was elevated on admission but has trended down now.?Baseline Cr normal. Cr 1.5 on admission related to fluid overload and poor renal perfusion. Lasix given with good response and probably improved contractility. Cr better at 1.1. He overall did well and was able to be discharged home on 07/01/23 Status at Discharge Cognitive/behavioral status at discharge: stable Time Spent with Patient Time attestation: Total time spent providing and/or coordinating discharge services: 35 minutes Time spent: Greater than 30 minutes Exam Narrative: AF 98.4 140/92 86 18 95% ra Gen - NARD Chest - CTA bilaterally, no wheezing CV - RRR S1/S2 Abd - Soft, NT/ND, Positive BS Ext - No pedal edema Psych - Nml mood and affect Skin - Warm and dry DS: Data Data Completed and Pending Labs on day of discharge: Labs from last 24 hours 07/01/23 06:35 Sodium 137 Potassium 4.2 Chloride 105 Carbon Dioxide 25 Anion Gap 7 L BUN 23 H Creatinine 1.10 Estim Creat Clear Calc 64 Estimated GFR > 60 Glucose 110 Calcium 9.2 Phosphorus 2.7 Albumin 3.8 Discharge Plan Discharge Attending physician on discharge: Mikey Osullivan Consulting providers: Malik Lee Discharging Clinician: Mikey Osullivan Anticipated Discharge Date/Time: 07/01/23 11:36 Patient Disposition: Home, Self-Care Activity: no straining Diet: heart healthy Discharge Instructions: Check blood pressure 1 to 2 times a day. Record and bring into your doctor for review. Call your doctor if your blood pressure is greater than 180/110. Take precautions to avoid falls. Rise slowly from a lying or sitting position. Pause before standing or walking. Check daily morning weights after voiding. Call your doctor if you gain more than 3 lb in 2 days or 5 lb in 1 week. Contact your doctor or call 911 and come to the Emergency Room if you have chest pain, left shoulder/back pain, jaw pain or other worrisome symptoms. Avoid NSAIDs (ibuprofen, naproxen, Aleve). Tylenol is safe to take. Wear your LifeVest at all times. Okay to take off for hygiene. Call 911 if you receive a shock Follow-up with your primary care provider in 1-2 weeks. Please call for appointment. Follow-up with Dr Lee in 1 week. Please call for an appointment. Thank you for using [facility] for
--- NOTE | 2023-07-01 12:08 | PC.NURSE ---
IV out, d/c papers discussed, patient aware of f/u appointments, patient did refuse Life vest and tae scan. MD aware. patient will leave by private car
== END 2023-07-01 12:20 | disposition home or self-care (01) | DRG 291 ==
LOC: ANHED 22:10 → ANH3MEDSUR 22:44
PROVIDERS: Admitting Provider Internal Medicine; Emergency Provider Student in an Organized Health Care Education/Training Program; PCP Emergency Medicine; Visit Provider Internal Medicine
DX: I11.0 Hypertensive heart disease with heart failure (principal); I50.41 Acute combined systolic (congestive) and diastolic (congestive) heart failure; N17.9 Acute kidney failure, unspecified; J44.9 Chronic obstructive pulmonary disease, unspecified; Z20.822 Contact with and (suspected) exposure to COVID-19; Z66 Do not resuscitate; Z77.090 Contact with and (suspected) exposure to asbestos; Z87.891 Personal history of nicotine dependence
CPT/HCPCS: 36415; 71046; 71275; 80048; 80053; 80069; 83690; 83880; 84484; 85025; 85027; 85610; 85730; 87637; 93005; 94640; 96374; 99285; A9270; C8929; J1650; J1940; J7120; Q9957; Q9967

== ENCOUNTER 2024-02-09 22:07 | Emergency (ER) | payer MEDICARE, MEDICAID, SELFPAY ==
--- NOTE | ~2024-02-09 | XR_ITS ---
Portable chest x-ray Comparison: 06/28/2023 Clinical History: Shortness of breath Findings: Questionable minimal bibasilar pulmonary edema. No pleural effusion or pneumothorax. Card iomediastinal silhouette is stable. Bones and soft tissues are unremarkable. Impression: Questionable minimal bibasilar pulmonary edema. Stable cardiomegaly. Reviewed, dictated and finalized at [facility]. Impression: Questionable minimal bibasilar pulmonary edema. Stable cardiomegaly.
[2024-02-09 23:05] VITALS: BP 147/92; PULSE 96; RESP 15; TEMP 37.2; O2SAT 96
[2024-02-10 00:24] VITALS: BP 144/104; PULSE 95; RESP 16; TEMP 36.7; O2SAT 98
--- NOTE | 2024-02-10 01:55 | ECG_ITS ---
Test Date: 2024-02-10 01:59:59 Measurements Intervals [place] Rate: 93 P: 53 NM: 182 QRS: 12 QRSD: 110 T: 117 QT: 375 QTc: 468 Interpretive Statements SINUS RHYTHM LEFT ATRIAL ENLARGEMENT [-0.15mV P WAVE IN V1/V2] POSSIBLE RIGHT VENTRICULAR CONDUCTION DELAY [RSR (QR) IN V1/V2] LEFT VENTRICULAR HYPERTROPHY AND ST-T CHANGE [VOLTAGE CRITERIA PLUS ST/T ABNORMALITY] No previous ECG available for comparison Electronically Signed On 02-10-2024 09:44:13 CDT by Leora Brambila M.D.
[2024-02-10 02:07] VITALS: O2SAT 97
[2024-02-10] MEDS: FUROSEMIDE INJ 40 MG/4 ML VIAL IV PUSH (03:05)
[2024-02-10 03:09] VITALS: BP 151/100; PULSE 93; RESP 14; O2SAT 97
[2024-02-10 03:16] LABS: Basophils Absolute Auto 0.1 K/mm3 (0.0-0.1); Basophils Percent Auto 0.8 % (0.2-1.2); Eosinophils Absolute Auto 0.5 K/mm3 (0-0.3); Eosinophils Percent Auto 6.7 % (0-4.4); Hematocrit 37.5 % (42.0-52.0); Hemoglobin 12.6 g/dL (14.0-18.0); Immature Granulocyte Absolute 0.01 K/mm3 (0.00-0.031); Immature Granulocyte Percent A 0.1 % (0-0.5); Lymphocytes Absolute Auto 3.06 K/mm3 (0.9-3.2); Mean Corpuscular HGB Conc 33.6 g/dl (32-36); Mean Corpuscular Hemoglobin 31.3 pg (26-34); Mean Corpuscular Volume 93.1 fl (80-100); Mean Platelet Volume 9.4 fl (7.4-10.4); Monocytes Absolute Auto 0.4 K/mm3 (0.1-0.6); Neutrophils Absolute Auto 3.2 K/mm3 (1.3-6.7); Neutrophils Percent Auto 44.4 % (45.5-73.1); Platelet Count Result 223 k/mm3 (150-375); Red Blood Count 4.03 M/mm3 (4.6-6.20); Red Cell Distribution Width 12.7 % (11.5-14.5); White Blood Count 7.3 K/mm3 (4.5-10.0)
[2024-02-10 03:20] LABS: Add Urine Microscopic? NO; Appearance Urine Clear (Clear); Bilirubin Urine Negative (Negative); Blood Urine Negative (Negative); Color Urine Yellow (Yellow); Glucose Urine UA Negative (Negative); Ketones Urine Negative (Negative); Leukocyte Esterase Ur Negative LEU/UL (Negative); Nitrate Urine Negative (Negative); Protein Urine Negative (Negative); Specific Grav Ur 1.016 (1.001-1.035); pH Urine 6.5 (5.0-9.0)
[2024-02-10 03:26] LABS: Alanine Aminotransferase 22 U/L (6-50); Albumin Level 3.9 g/dL (3.5-5.1); Alkaline Phosphatase 90 U/L (38-126); Anion Gap 9 mmol/L (4-12); Aspartate Amino Transferase 25 U/L (17-59); Bilirubin,Total 0.7 mg/dL (0.2-1.3); Blood Urea Nitrogen 21 mg/dL (9-20); Calcium 9.2 mg/dL (8.4-10.2); Carbon Dioxide 24 mmol/L (22-30); Chloride 106 mmol/L (98-107); Estimated CRCL calculation 55 ml/min; Estimated Glomerular Filt Rate 55; Glucose 95 mg/dL (65-110); Magnesium 2.1 mg/dL (1.6-2.3); Potassium 4.1 mmol/L (3.4-5.0); Sodium 139 mmol/L (137-145)
[2024-02-10 03:27] LABS: Lactic Acid Reflex 0.8 mmol/L (0.7-2.0)
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
[2024-02-10 03:38] LABS: NT Pro B Type Natriuretic Pept 9670 pg/mL (19.9-100); Troponin I 0.017 ng/mL (0.000-0.034)
== END 2024-02-10 04:13 | disposition left against medical advice (07) ==
PROVIDERS: Emergency Provider Emergency Medicine; PCP Emergency Medicine
DX: I50.9 Heart failure, unspecified (principal); J44.9 Chronic obstructive pulmonary disease, unspecified; R94.31 Abnormal electrocardiogram [ECG] [EKG]
CPT/HCPCS: 36415; 71045; 80053; 81003; 83605; 83735; 83880; 84484; 85025; 93005; 96374; 99284; J1940

== ENCOUNTER 2024-03-05 19:27 | Inpatient (IN) | payer MEDICARE, MEDICAID, SELFPAY ==
--- NOTE | ~2024-03-05 | CT_ITS ---
EXAMINATION: CTA chest PE protocol DATE: 03/05/2024 22:54 INDICATION: Difficulty breathing. TECHNIQUE: Computed tomography angiography (CTA) of the chest was performed with 100 mL Omnipaque-350 intravenous contrast timed to evaluate the pulmonary arteries. Coronal maximum intensity projection 3D-reconstructions were created by the technologist. Automated exposure control and iterative reconst ruction technique were employed. The dose-length product was 569.30 mGy-cm. COMPARISON: Chest CT 06/28/2023 FINDINGS: There is septal thickening in the lungs, consistent with mild pulmonary edema. A calcified left lung nodule and calcified left hilar and mediastinal lymph nodes are consistent with old granulo matous disease. No pleural effusion. Cardiomegaly is noted. There are coronary artery calcifications. No pericardial effusion. There is no pulmonary embolus. Calcifications in the liver and spleen are c onsistent with old granulomatous disease. There is mild thoracic spondylosis. IMPRESSION: 1. Mild pulmonary edema. 2. No pulmonary embolus. Reviewed, dictated and finalized at location A. DRIVER
--- NOTE | ~2024-03-05 | XR_ITS ---
EXAMINATION: XR chest 2V DATE: 03/05/2024 19:49 INDICATION: Chest pain. Shortness of breath. TECHNIQUE: Frontal and lateral views of the chest were obtained. COMPARISON: Chest single view 02/10/2024 FINDINGS: There is a diffuse interstitial pattern, consistent with mild pulmonary edema. A calcified left lung nodule is consistent with old granulomatous disease. No pleural effusion or pneumothorax. C ardiomegaly is noted. IMPRESSION: 1. Mild pulmonary edema. 2. Cardiomegaly. Reviewed, dictated and finalized at location A. CONDU[employer] TESTER
--- NOTE | ~2024-03-05 | US_ITS ---
EXAMINATION: US venous doppler [facility] DATE: 03/06/2024 10:05 INDICATION: Lower limb swelling TECHNIQUE: Grayscale ultrasound images without and with compression and Doppler ultrasound images of the bilateral lower extremity veins were obtained. COMPARISON: None. FINDINGS: The visualized portions of right common femoral vein, profunda (deep) femoral vein, femoral vein, pop liteal vein, posterior tibial veins, peroneal veins, gastrocnemius vein and greater saphenous vein ou tflow are patent. The visualized portions of left common femoral vein, profunda femoral vein, femoral vein, popliteal v ein, posterior tibial veins, peroneal veins, gastrocnemius vein and greater saphenous vein outflow ar e patent. IMPRESSION: 1. No deep venous thrombosis in either lower limb. Reviewed, dictated and finalized at location A. RRAL MANAGEMENT LIAISON
--- NOTE | 2024-03-05 19:28 | ECG_ITS ---
Test Date: 2024-03-05 19:38:36 Measurements Intervals [place] Rate: 112 P: 53 [place]: 165 QRS: -8 QRSD: 110 T: 130 QT: 298 QTc: 408 Interpretive Statements SINUS TACHYCARDIA WITH OCCASIONAL VENTRICULAR PREMATURE COMPLEXES LEFT ATRIAL ENLARGEMENT INTRAVENTRICULAR CONDUCTION DELAY LEFT VENTRICULAR HYPERTROPHY AND ST-T CHANGE BASELINE ARTIFACT- I, II, III, AVR, AVL, AVF, V3 ABNORMAL ECG Compared to ECG 02/10/2024 01:59:59 HEART RATE HAS INCREASED Electronically Signed On 03-06-2024 07:39:56 MANAGER WIRELESS by Malik Lee D.O.
[2024-03-05 19:29] VITALS: BP 173/115; PULSE 102; RESP 20; TEMP 36.4; O2SAT 100
[2024-03-05 20:26] LABS: Basophils Absolute Auto 0.1 K/mm3 (0.0-0.1); Basophils Percent Auto 0.8 % (0.2-1.2); Eosinophils Absolute Auto 0.2 K/mm3 (0-0.3); Eosinophils Percent Auto 2.4 % (0-4.4); Hematocrit 46.3 % (42.0-52.0); Hemoglobin 14.4 g/dL (14.0-18.0); Immature Granulocyte Absolute 0.03 K/mm3 (0.00-0.031); Immature Granulocyte Percent A 0.3 % (0-0.5); Lymphocytes Absolute Auto 2.69 K/mm3 (0.9-3.2); Lymphocytes Percent Auto 30.5 % (18.3-44.2); Mean Corpuscular HGB Conc 31.1 g/dl (32-36); Mean Corpuscular Hemoglobin 30.4 pg (26-34); Mean Corpuscular Volume 97.7 fl (80-100); Mean Platelet Volume 9.7 fl (7.4-10.4); Monocytes Absolute Auto 0.4 K/mm3 (0.1-0.6); Monocytes Percent Auto 4.1 % (2.6-8.5); Neutrophils Absolute Auto 5.5 K/mm3 (1.3-6.7); Neutrophils Percent Auto 61.9 % (45.5-73.1); Platelet Count Result 286 k/mm3 (150-375); Red Blood Count 4.74 M/mm3 (4.6-6.20); Red Cell Distribution Width 14.1 % (11.5-14.5); White Blood Count 8.8 K/mm3 (4.5-10.0)
[2024-03-05 20:38] LABS: INR 1.2; Prothrombin Time 15.9 Seconds (11.1-14.7)
[2024-03-05 20:39] LABS: Partial Thromboplastin Time 32.5 Seconds (22.3-36.8)
[2024-03-05 20:55] LABS: Alanine Aminotransferase 34 U/L (6-50); Albumin Level 4.2 g/dL (3.5-5.1); Alkaline Phosphatase 82 U/L (38-126); Anion Gap 5 mmol/L (4-12); Aspartate Amino Transferase 37 U/L (17-59); Bilirubin,Total 1.1 mg/dL (0.2-1.3); Blood Urea Nitrogen 31 mg/dL (9-20); Calcium 9.5 mg/dL (8.4-10.2); Carbon Dioxide 31 mmol/L (22-30); Chloride 104 mmol/L (98-107); Estimated CRCL calculation 51 ml/min; Estimated Glomerular Filt Rate 51; Glucose 103 mg/dL (65-110); Lipase 60 U/L (23-300); Potassium 4.6 mmol/L (3.4-5.0); Sodium 140 mmol/L (137-145); Troponin I 0.039 ng/mL (0.000-0.034)
[2024-03-05 21:37] VITALS: PULSE 109
[2024-03-05 21:39] VITALS: BP 143/112; PULSE 76; RESP 32; TEMP 36.6; O2SAT 99
[2024-03-05] MEDS: ASPIRIN 81 MG CHEWABLE TABLET 324 MG PO (21:42)
[2024-03-05 21:43] VITALS: O2SAT 100
--- NOTE | 2024-03-05 22:28 | ECG_ITS ---
Test Date: 2024-03-05 22:25:54 Measurements Intervals [place] Rate: 104 P: 51 [place]: 174 QRS: -10 QRSD: 106 T: 125 QT: 338 QTc: 445 Interpretive Statements SINUS TACHYCARDIA LEFT ATRIAL ENLARGEMENT LEFT VENTRICULAR HYPERTROPHY AND ST-T CHANGE BASELINE ARTIFACT- V1-V2 BORDERLINE ECG Compared to ECG 03/05/2024 19:38:36 HEART RATE HAS DECREASED Electronically Signed On 03-06-2024 07:42:21 CHILD DEVELOPMENT CONSULTANT by Malik Lee D.O.
--- NOTE | 2024-03-05 22:44 | ED.CHESTPAIN ---
HPI - Chest Pain General Chief Complaint: Chest Pain Stated Complaint: sob, cp Time Seen by Provider: 03/05/24 21:54 History of Present Illness HPI narrative: 68-year-old male with a past medical history significant for COPD, congestive heart failure. Patient presents to the emergency room with chief complaint of difficulty breathing and chest pain radiating from the bilateral shoulder blades to his chest. Patient has been seen multiple times in this emergency department for various complaints including COPD, congestive heart failure. Most recent visit was February 09. Patient was discharged home after Lasix and a mild CHF exacerbation. Patient is acutely homeless at this time and states that he has been living on out of his car. Patient states that since his discharge he has been developing pain and dyspnea on exertion. He states that his pain started between the shoulder blades and radiates to the top of his chest. He also has some difficulty in breathing even with small exertion like walking a block. Patient states he still has Lasix at home is taking his medications. Denies any fever, chills, nausea vomiting, abdominal pain. denies any history of DVT or PE but does state that his right leg is chronically more swollen than his left leg. Not any anticoagulation at this time. States this feels somewhat dissimilar from his usual CHF or COPD exacerbations. Related Data Home Medications Medication Instructions Recorded Confirmed albuterol sulfate 90 mcg/actuation 2 puff inhalation Q4H PRN 03/06/24 03/06/24 aerosol inhaler Shortness Of Breath Or Wheezing aspirin 81 mg tablet 81 mg PO DAILY 03/06/24 03/06/24 Allergies Allergy/AdvReac Type Severity Reaction Status Date / Time Sulfa (Sulfonamide Allergy Mild Itching Verified 03/06/24 02:32 Antibiotics) Review of Systems Review of Systems: As reviewed above in HPI [facility] Past Medical History Medical History Bronchitis Nose fracture Severe chronic obstructive pulmonary disease With good response to bronchodilator noted on PFTs 10/2020 Toe fracture, left multiple toes Surgical History Surgical History History of tonsillectomy Family History Family History (Updated 03/06/24 @ 02:46 by Monalisa Anaya RN) Mother , in her 80s Diabetes mellitus Lung cancer Father , at 83 years old Acute myocardial infarction Biventricular ICD (implantable cardioverter-defibrillator) in place Sibling Lung cancer Social History Social History Social History: Patient was 3 times. His last between 3 and 5 years ago cancer. He then had a girlfriend who also developed cancer and in August of 2022. 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 He briefly smoked when he was younger. He denies any significant alcohol use. He denies any illicit substance use. Code status: DNR/DNI (per patient request) The patient reports he does not have a surrogate decision maker and has no family members left. He does not have any friends he feels close enough to ask to make that type of decision. Years smoked: 5 Smoking status: Never smoker Alcohol intake: never Substance use: former Substance use type: marijuana Do You Feel Safe in your Home?: Yes Lack of Transportation: YES Lack of Food: Often True Current Housing: I Do Not Have Housing Concerned About Future Housing: YES Difficulty Paying Gas/Electric Bills: No Difficulty Paying for Meds: YES Currently Unemployed: No Education: Decline to Answer Difficulty w/ Childcare or Family Care: No Gender identity (if verbalized by the patient): Male Spiritual care concerns: No Exam Narrative: GENERAL: [Well-appearing, well-nourished, and in no acute distress.] HEAD: [Normocephalic, atraumatic.] EYES: [PERRLA and EOMI.] ENT: Nares clear, no rhinorrhea or epistaxis. Mucous membranes moist. NECK: Supple. CHEST: some crackles appreciated in the bases of the lungs more so on the right side, no wheezing or accessory muscle use, no prolonged expiratory phase. No tenderness with palpation of the chest wall pain HEART: [Regular rate and rhythm]. No murmur heard. [Normal peripheral pulses.] ABDOMEN: [Soft, nondistended], [nontender], [No rigidity or guarding] EXTREMITIES: Normal range of motion. 2+ pitting edema to the calf, right-sided swelling more than left side. No tenderness with palpation, full range of motion of the extremities. SKIN: Warm, dry, no rash. NEURO: [No focal deficits]. Alert and oriented [x3.] PSYCH: [Normal mood and affect.] Course Vital Signs Vital signs: Vital Signs Temperature 36.4 C 03/05/24 19:29 Pulse Rate 102 H 03/05/24 19:29 Respiratory Rate 20 03/05/24 19:29 Blood Pressure 173/115 H 03/05/24 19:29 Pulse Oximetry 100 03/05/24 19:29 Oxygen Delivery Room Air 03/05/24 19:29 Temperature 36.8 C 03/06/24 04:34 Pulse Rate 65 03/06/24 05:56 Respiratory Rate 24 H 03/06/24 04:34 Blood Pressure 116/74 03/06/24 04:34 Pulse Oximetry 100 03/06/24 04:34 Oxygen Delivery Room Air 03/06/24 03:00 MDM - Chest Pain MDM Narrative Medical decision making narrative: 68-year-old male with history of COPD and congestive heart failure presenting with difficulty in breathing, chest pain, exertional dyspnea and pain in the shoulder blades. He has been seen several times for CHF and COPD exacerbations most recently several weeks prior. He states that he is homeless right now but still taking his Lasix. He does have some asymmetric leg swelling denies any history of thrombosis. No recent procedures. States that he is short of breath when he walks less than a block. At rest he has no significant chest discomfort but when he exerts himself he gets pain in his chest, shoulder blades and short of breath. States it feels not very similar to his CHF exacerbations in the past. Given his significant past medical history and symptoms differential is broad, CHF exacerbation, COPD exacerbation on the differential although could also be intrathoracic process such as a pulmonary embolism given his history of longstanding asymmetric legs and new pain that is different than his normal CHF. ACS on the differential. Serial troponins, serial EKGs and laboratory studies were obtained as well as a CT angiography of his chest. BNP and chest x-ray ordered. Workup revealed no leukocytosis or anemia. Coagulation studies with a mildly elevated PT but otherwise unremarkable findings. Chemistry panel with elevated bicarb at 31, BUN and creatinine elevation at 31 and 1.40 respectively. Similar to previous levels. Troponin elevation of 0.039. Down trending serial troponins at 0.035 and 0.035. Markedly elevated BNP at 14,400 consistent with a CHF exacerbation with his symptoms. Chest x-ray independently reviewed by myself shows some pulmonary edema and cardiomegaly. Confirmed from radiology read. CT angiography was ordered and showed no pulmonary embolism and mild pulmonary edema. No pneumonia or pneumothorax. Serial EKGs were obtained independently reviewed. There is some nonspecific ST segment depressions and inversions in the lateral leads V5 and V6. No ST segment elevations or concerning acute ischemic changes. Compared to previous serial EKGs these are not new findings and chronic. Patient has a exam and laboratory assessment consistent with a CHF exacerbation and the troponin elevations likely secondary to the strain of his heart from this. Patient will need admission to the hospital and likely to a step-down unit/IMU care. I discussed the case with the hospitalist over the phone and after we relayed the imaging studies, went over his exam findings, EKGs, plan of care and current medications including getting Lasix in the ED he was accepted for admission at this time to a intermediate care unit bed. Patient was agreeable to this plan of care. Patient remained hemodynamically stable while here in the emergency department and was transferred upstairs without further incident. Medical Records Data Attestation: I reviewed the patient's medical records. Lab Data Attestation: I reviewed the patient's lab results. 03/05/24 20:16 03/05/24 20:16 Labs: Lab Results 03/05/24 03/05/24 Range/Units 20:16 22:18 WBC 8.8 (4.5-10.0) K/mm3 RBC 4.74 (4.6-6.20) M/mm3 Hgb 14.4 (14.0-18.0) g/dL Hct 46.3 (42.0-52.0) % MCV 97.7 (80-100) fl MCH 30.4 (26-34) pg MCHC 31.1 L (32-36) g/dl RDW 14.1 (11.5-14.5) % Plt Count 286 (150-375) k/mm3 MPV 9.7 (7.4-10.4) fl Immature Gran % (Auto) 0.3 (0-0.5) % Neut % (Auto) 61.9 (45.5-73.1) % Lymph % (Auto) 30.5 (18.3-44.2) % [place] % (Auto) 4.1 (2.6-8.5) % Eos % (Auto) 2.4 (0-4.4) % Baso % (Auto) 0.8 (0.2-1.2) % Lymph # (Auto) 2.69 (0.9-3.2) K/mm3 [place] # (Auto) 0.4 (0.1-0.6) K/mm3 Eos # (Auto) 0.2 (0-0.3) K/mm3 Baso # (Auto) 0.1 (0.0-0.1) K/mm3 Abs Immat Gran (auto) 0.03 (0.00-0.031) K/mm3 Absolute Neuts (auto) 5.5 (1.3-6.7) K/mm3 Absolute Nucleated RBC 0.000 (0.0-0.012) K/mm3 Nucleated RBC % 0.0 (0.0-0.2) % PT 15.9 H (11.1-14.7) Seconds INR 1.2 APTT 32.5 (22.3-36.8) Seconds Sodium 140 (137-145) mmol/L Potassium 4.6 (3.4-5.0) mmol/L Chloride 104 (98-107) mmol/L Carbon Dioxide 31 H (22-30) mmol/L Anion Gap 5 (4-12) mmol/L BUN 31 H D (9-20) mg/dL Creatinine 1.40 H (0.7-1.3) mg/dL Estim Creat Clear Calc 51 ml/min Estimated GFR 51 L (59 - ) Glucose 103 (65-110) mg/dL Calcium 9.5 (8.4-10.2) mg/dL Total Bilirubin 1.1 (0.2-1.3) mg/dL AST 37 (17-59) U/L ALT 34 (6-50) U/L Alkaline Phosphatase 82 (38-126) U/L Troponin I 0.039 H* 0.035 H* (0.000-0.034) ng/mL NT-Pro-B Natriuret Pep 57437 H (19.9-100) pg/mL Total Protein 8.0 (6.3-8.2) g/dL Albumin 4.2 (3.5-5.1) g/dL Lipase 60 (23-300) U/L Imaging Data Attestation: I personally reviewed and interpreted this imaging study as follows: My impression: Impressions Chest X-Ray 03/05/24 19:50 IMPRESSION: 1. Mild pulmonary edema. 2. Cardiomegaly. Chest CTA 03/05/24 22:59 IMPRESSION: 1. Mild pulmonary edema. 2. No pulmonary embolus. Radiologist's impression: Impressions Chest X-Ray 03/05/24 19:50 IMPRESSION: 1. Mild pulmonary edema. 2. Cardiomegaly. Chest CTA 03/05/24 22:59 IMPRESSION: 1. Mild pulmonary edema. 2. No pulmonary embolus. ECG Data EKG #1: Attestation: I personally reviewed and interpreted this ECG as follows: ECG completion date: 03/05/24 ECG completion time: 19:38 Prior ECG tracings: available for review Interpretation: Nonspecific ST segment inversions in the lateral leads V5 and V6. No ST segment elevations. Slightly tachycardic but sinus rhythm. Prominent P waves consistent with probable underlying pulmonary disease and he does have a history of CHF. No interval abnormalities including a normal QTC and NC interval. QRS at 110 milliseconds. No changes compared to previous EKG. EKG Interpretation: tachycardia, sinus rhythm and non-specific ST changes EKG #2: Attestation: I personally reviewed and interpreted this ECG as follows: ECG completion date: 03/06/24 ECG completion time: 01:22 Prior ECG tracings: available for review Ischemic changes: non-specific ST-T wave changes Interpretation: No acute ST segment elevations, depressions or changes from previous EKG. Persistent nonspecific ST segment inversions in the lateral leads V5 and V6. No ST segment elevations. Normal rate rhythm an axis presently. No longer tachycardic and normal sinus rhythm is present EKG Interpretation: normal rate, sinus rhythm and non-specific ST changes Critical Care Time Critical Care Time Critical Care Time: Yes Total Critical Care Time: 60 Discharge Plan Discharge Clinical Impression: Acute exacerbation of CHF (congestive heart failure), Elevated brain natriuretic peptide (BNP) level, Essential hypertension Patient Disposition: Still a Patient Condition: Stable Time of Disposition: 00:06
[2024-03-05 22:53] LABS: NT Pro B Type Natriuretic Pept 14400 pg/mL (19.9-100); Troponin I 0.035 ng/mL (0.000-0.034)
--- NOTE | 2024-03-05 23:06 | P.HP_ITS ---
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 Preliminary workup was significant for brain atretic peptide of 14,400, troponins x2 with mild elevation. Patient has been admitted for further evaluation management and treatment. EXAMINATION: XR chest 2V DATE: 03/05/2024 19:49 INDICATION: Chest pain. Shortness of breath. TECHNIQUE: Frontal and lateral views of the chest were obtained. COMPARISON: Chest single view 02/10/2024 FINDINGS: There is a diffuse interstitial pattern, consistent with mild pulmonary edema. A calcified left lung nodule is consistent with old granulomatous disease. No pleural effusion or pneumothorax. Cardiomegaly is noted. IMPRESSION: 1. Mild pulmonary edema. 2. Cardiomegaly. EXAMINATION: CTA chest PE protocol DATE: 03/05/2024 22:54 INDICATION: Difficulty breathing. TECHNIQUE: Computed tomography angiography (CTA) of the chest was performed with 100 mL Omnipaque-350 intravenous contrast timed to evaluate the pulmonary arteries. Coronal maximum intensity projection 3D-reconstructions were created by the technologist. Automated exposure control and iterative reconstruction technique were employed. The dose-length product was 569.30 mGy-cm. COMPARISON: Chest CT 06/28/2023 FINDINGS: There is septal thickening in the lungs, consistent with mild pulmonary edema. A calcified left lung nodule and calcified left hilar and mediastinal lymph nodes are consistent with old granulomatous disease. No pleural effusion. Cardiomegaly is noted. There are coronary artery calcifications. No pericardial effusion. There is no pulmonary embolus. Calcifications in the liver and spleen are consistent with old granulomatous disease. There is mild thoracic spondylosis. IMPRESSION: 1. Mild pulmonary edema. 2. No pulmonary embolus. [facility] Past Medical History Medical History Bronchitis Nose fracture Severe chronic obstructive pulmonary disease With good response to bronchodilator noted on PFTs 10/2020 Toe fracture, left multiple toes Surgical History Surgical History History of tonsillectomy Family History Family History (Updated 03/06/24 @ 02:46 by Monalisa Anaya RN) Mother , in her 80s Diabetes mellitus Lung cancer Father , at 83 years old Acute myocardial infarction Biventricular ICD (implantable cardioverter-defibrillator) in place Sibling Lung cancer Social History Social History Social History: Patient was 3 times. His last between 3 and 5 years ago cancer. He then had a girlfriend who also developed cancer and in August of 2022. 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 He briefly smoked when he was younger. He denies any significant alcohol use. He denies any illicit substance use. Code status: DNR/DNI (per patient request) The patient reports he does not have a surrogate decision maker and has no family members left. He does not have any friends he feels close enough to ask to make that type of decision. Years smoked: 5 Smoking status: Never smoker Alcohol intake: never Substance use: never Do You Feel Safe in your Home?: Yes Lack of Transportation: No Lack of Food: Never True Current Housing: I Do Not Have Housing Concerned About Future Housing: No Difficulty Paying Gas/Electric Bills: No Difficulty Paying for Meds: No Currently Unemployed: No Education: Trade/Vocational Certificate Difficulty w/ Childcare or Family Care: No Gender identity (if verbalized by the patient): Male Spiritual care concerns: No Meds Home Medications and Allergies Home Medications Medication Instructions Recorded Confirmed Type albuterol sulfate 90 mcg/actuation 90 mcg inhalation QID #6.7 grams 07/01/23 03/06/24 Rx aerosol inhaler carvedilol 6.25 mg tablet (Coreg) 6.25 mg PO Q12HR #60 tabs 07/01/23 03/06/24 Rx furosemide 20 mg tablet 20 mg PO DAILY #30 tabs 07/01/23 03/06/24 Rx sacubitril 24 mg-valsartan 26 mg 1 tab PO Q12HR #60 tabs 07/01/23 03/06/24 Rx tablet (Entresto) aspirin 81 mg tablet 81 mg PO DAILY 03/06/24 03/06/24 History Allergies Allergy/AdvReac Type Severity Reaction Status Date / Time Sulfa (Sulfonamide Allergy Mild Itching Verified 03/06/24 02:32 Antibiotics) Vital Signs Vital Signs - 24 hr 03/05/24 19:29 03/05/24 21:37 03/05/24 21:39 Temperature 97.6 F Pulse Rate 102 H 109 H Respiratory Rate 20 Blood Pressure 173/115 H Pulse Oximetry 100 99 Oxygen Delivery Room Air Room Air 03/05/24 21:39 03/05/24 21:43 Temperature 98 F Pulse Rate 76 Respiratory Rate 32 H Blood Pressure 143/112 H Pulse Oximetry 99 100 Oxygen Delivery Room Air Exam Narrative: Patient is sitting in the stretcher Const: General: comfortable, no acute distress, well developed, alert, awake, ill appearing chronically, tired appearing and average body habitus Nutritional Appearance: average body habitus Orientation/consciousness: patient oriented x3 HENMT: Head: normal to inspection, normocephalic and atraumatic Ears: hearing grossly normal bilaterally Face/Nose/Sinus: normal facial exam Face and sinus: normal facial exam Eyes: General: appearance normal, both eyes and all related structures Pupils: Equal, round and reactive pupils present EOM: EOMs intact bilaterally Neck: Neck: full ROM, no lymphadenopathy and no JVD Thyroid: thyroid normal Lymphatic: no lymphadenopathy noted Resp: Effort & Inspection: normal respiratory effort and able to speak in complete sentences Auscultation: clear to auscultation bilaterally Cardio: Jugular venous distension: no JVD Rate: regular rate Rhythm: regular rhythm Heart sounds: S1 normal heart sound present and S2 normal heart sound present GI: GI Palp: Yes Soft to palpation and Yes No hepatosplenomegaly present : General: Yes deferred Skin: Rashes: no rashes Wounds: no wounds Neuro: General: patient oriented x3 and CN's II-XI intact bilaterally Cranial nerves: Yes CN's II-XII intact bilaterally and Yes Equal, round and reactive pupils present Cognition (Neuro): normal cognition Speech: normal speech Gait exam (Neuro): Normal gait present Motor exam (neuro): 5/5 motor strength present throughout Extrem: General: normal to inspection, full ROM, no joint enlargement and no pedal edema Other: bilateral lower extremity 3+ edema H&P: Results Labs Labs: Short CBC 03/05/24 Range/Units 20:16 WBC 8.8 (4.5-10.0) K/mm3 Hgb 14.4 (14.0-18.0) g/dL Hct 46.3 (42.0-52.0) % Plt Count 286 (150-375) k/mm3 BMP 03/05/24 20:16 Sodium 140 Potassium 4.6 Chloride 104 Carbon Dioxide 31 H BUN 31 H D Creatinine 1.40 H Glucose 103 Calcium 9.5 Cardiac Enzymes 03/05/24 03/05/24 Range/Units 20:16 22:18 Troponin I 0.039 H* 0.035 H* (0.000-0.034) ng/mL Liver Function 03/05/24 Range/Units 20:16 Total Bilirubin 1.1 (0.2-1.3) mg/dL AST 37 (17-59) U/L ALT 34 (6-50) U/L Alkaline Phosphatase 82 (38-126) U/L Albumin 4.2 (3.5-5.1) g/dL Assessment and Plan Assessment and plan (1) Systolic heart failure: Code(s): I50.20 - Unspecified systolic (congestive) heart failure Status: Acute Assessment and Plan: admit to IMU diuresis as needed daily intake and output echocardiogram in a.m. cardiology consult (2) Severe chronic obstructive pulmonary disease: Code(s): J44.9 - Chronic obstructive pulmonary disease, unspecified Status: Acute Assessment and Plan: not actively wheezing continue albuterol (3) Essential hypertension: Code(s): I10 - Essential (primary) hypertension Status: Acute Assessment and Plan: patient is on Entresto (4) Elevated brain natriuretic peptide (BNP) level: Code(s): R79.89 - Other specified abnormal findings of blood chemistry Status: Acute Assessment and Plan: will obtain echocardiogram in a.m. Hospitalist MIPS Advance Care Plan I have confirmed that the patient's Advanced Care Plan is present, code status is documented, or surrogate decision maker is listed in patient medical record.: Yes Medication Reconciliation I have utilized all available resources to obtain, update and review the patients current medications (includes all prescriptions, OTC, herbals, cannabis, and nutritional supplements).: Yes
[2024-03-05] MEDS: FUROSEMIDE INJ 40 MG/4 ML VIAL IV PUSH (23:11)
[2024-03-05 23:40] VITALS: BP 159/119; PULSE 81; RESP 22; TEMP 36.8; O2SAT 97
[2024-03-06] VITALS (19 sets, daily range): BP systolic 116–148; BP diastolic 74–111; PULSE 58–94; RESP 16–25; TEMP 36.3–36.8; O2SAT 78–100; BMI 28.4
--- NOTE | 2024-03-06 | ECHO_ITS ---
Patient Info Name: Jeevan Castellanos Age: 68 years : 1955 Gender: Male Ht: 72 in Wt: 220 lbs BSA: 2.27 m2 HR: 65 bpm BP: 121 / 87 mmHg Heart Rhythm: Indeterminant Technical Quality: Good Exam Date: 03/06/2024 7:54 AM Exam Location: Echo Lab Patient Status: Inpatient Admit Date: 03/05/2024 Staff Ordering Physician: Mauro Arizmendi MD [place] A Driver: Chad Mcdonald RDCS Attending Provider: Mauro Arizmendi MD Referring Physician: Kyleigh DODD; Exam Type: CA echo doppler color flow Study Info Indications - chf Complete two-dimensional, color flow and Doppler transthoracic echocardiogram is performed. Summary 1. Complete two-dimensional, color flow and Doppler transthoracic echocardiogram is performed. 2. Left ventricular systolic function is severely reduced with a visually estimated ejection fraction of 25-30%. 3. There is mildly increased left ventricular wall thickness. 4. Left ventricular chamber dimension is enlarged. 5. There is global hypokinesis. 6. Right ventricular chamber dimension is enlarged. 7. Right ventricular systolic function is normal. 8. Left atrial chamber dimension is enlarged. 9. Right atrial chamber dimension is enlarged. 10. There is moderate to severe mitral valve regurgitation. 11. There is mild tricuspid valve regurgitation. 12. Mild 13. pulmonary hypertension, estimated pulmonary arterial systolic pressure is 45-50 mmHg. 14. There is mild aortic valve stenosis with a peak velocity of 127 cm/s, mean gradient of 4 mmHg, and aortic valve area of 1.6 cm2. 15. Mild to moderate aortic regurgitation. Left Ventricle Left ventricular chamber dimension is enlarged. There is mildly increased left ventricular wall thickness. Left ventricular systolic function is severely reduced with a visually estimated ejection fraction of 25-30%. There is global hypokinesis. Right Ventricle Right ventricular chamber dimension is enlarged. Right ventricular systolic function is normal. Left Atria Left atrial chamber dimension is enlarged. Right Atria Right atrial chamber dimension is enlarged. Aortic Valve There is mild aortic valve stenosis with a peak velocity of 127 cm/s, mean gradient of 4 mmHg, and aortic valve area of 1.6 cm2. Mild to moderate aortic regurgitation. Mitral Valve There is moderate to severe mitral valve regurgitation. Tricuspid Valve There is mild tricuspid valve regurgitation. Mild pulmonary hypertension, estimated pulmonary arterial systolic pressure is 45-50 mmHg. Pericardium/Pleural There is no pericardial effusion. Inferior Vena Cava Inferior vena cava is not well visualized. Left Ventricular Outflow Tract Name Value Normal LVOT 2D LVOT Diameter 2.1 cm LVOT Doppler LVOT Peak Gradient 1 mmHg LVOT Mean Gradient 1 mmHg LVOT VTI 11 cm LVOT VTI/AV VTI Ratio 0.5 LVOT Stroke Volume 38 ml LVOT CO 2.1 l/min LVOT CI 0.9 l/min/m2 Mitral Valve Name Value Normal MV Doppler MV Decel [place] 355 cm/s2 MV PHT 57 ms MV Area (PHT) 3.8 cm2 4.0-5.0 MV Regurgitation Doppler MR Peak Gradient 79 mmHg MV Diastolic Function MV E Peak Velocity 70 cm/s MV A Peak Velocity 1 cm/s MV E/A 47.7 MV Decel Time 198 ms MV Annular TDI MV E/e' (Septal) 21.9 <=8.0 MV E/e' (Lateral) 10.2 <=8.0 MV E/e' (Average) 16.0 Tricuspid Valve Name Value Normal TV Regurgitation Doppler TR Peak Velocity 295 cm/s TR Peak Gradient 35 mmHg Estimated PAP/RSVP RA Pressure 10 mmHg <=5 PA Systolic Pressure 45 mmHg <36 RV Systolic Pressure 45 mmHg <36 Aortic Valve Name Value Normal AV Doppler AV Peak Velocity 127 cm/s AV Peak Gradient 6 mmHg AV Mean Gradient 4 mmHg AV VTI 24 cm AV Area (Cont Eq VTI) 1.6 cm2 >=3.0 AV Area (Cont Eq Solomon) 1.6 cm2 AV Regurgitation 2D LVOT Area 3.5 cm2 AV Regurgitation Doppler AR Decel Time 15,381 ms AR Decel [place] 11 cm/s2 AR PHT 4,460 ms Ventricles Name Value Normal LV Dimensions 2D/MM IVS Diastolic Thickness (2D) 1.1 cm 0.6-1.0 LVID Diastole (2D) 6.8 cm 4.2-5.8 LVIW Diastolic Thickness (2D) 1.1 cm 0.6-1.0 LVID Systole (2D) 5.6 cm 2.5-4.0 LVOT Diameter 2.1 cm LV Mass (2D Cubed) 344.62 g 88.00-224.00 LV Mass Index (2D Cubed) 152 g/m2 49-115 Relative Wall Thickness (2D) 0.32 LV Fractional Shortening/Ejection Fraction 2D/MM LV Fractional Shortening (2D) 18 % 25-43 LV EF (2D Teicholz) 36 % 52-72 LV Diastolic Volume (4C MOD) 302 ml LV EF (4C MOD) 42 % LV Diastolic Volume (2C MOD) 257 ml LV EF (2C MOD) 38 % LV Diastolic Volume (BP MOD) 281 ml 62-150 LV Diastolic Volume Index (BP MOD) 124 ml/m2 34-74 LV Systolic Volume (BP MOD) 170 ml 21-61 LV Systolic Volume Index (BP MOD) 75 ml/m2 11-31 LV EF (BP MOD) 40 % 52-72 LV Diastolic Length (4C) 10.8 cm LV Systolic Length (4C) 8.6 cm LV Stroke Volume (4C MOD) 126 ml Atria Name Value Normal LA Dimensions LA Volume (4C A-L) 100 ml LA Volume (BP A-L) 88 ml RA Dimensions RA Area (4C) 26.7 cm2 <=18.0 Report Signatures
[2024-03-06] MEDS: SACUBITRIL/VALSARTAN 24-26 MG TABLET 1 TAB PO ×3 (00:29→20:35)
[2024-03-06] MEDS: carvediloL 6.25 MG TABLET PO ×3 (00:29→20:35)
--- NOTE | 2024-03-06 01:28 | ECG_ITS ---
Test Date: 2024-03-06 01:22:46 Measurements Intervals [place] Rate: 67 P: 46 VA: 176 QRS: 4 QRSD: 110 T: 89 QT: 420 QTc: 444 Interpretive Statements SINUS RHYTHM WITH SINUS ARRHYTHMIA POSSIBLE LEFT ATRIAL ENLARGEMENT INTRAVENTRICULAR CONDUCTION DELAY LEFT VENTRICULAR HYPERTROPHY AND ST-T CHANGE BORDERLINE ECG Compared to ECG 03/05/2024 22:25:54 HEART RATE HAS DECREASED Electronically Signed On 03-06-2024 07:44:22 [employer]PER[employer] by Malik Lee D.O.
[2024-03-06 01:45] LABS: Troponin I 0.035 ng/mL (0.000-0.034)
--- NOTE | 2024-03-06 03:26 | PC.NURSE ---
This patient, Jeevan Castellanos, was admitted to IMU Room 202-01. Patient/family oriented to hospital policies and general routines including ID bracelet, bed and alarms, visiting hours, pain management, procedures, bathroom and other care routines, personal items, smoking policy, room service/diet, and visiting hours. Information on how to activate the Rapid Response Team has been discussed. Patient/Family are encouraged to report perceived risks to care and to ask questions if they do not understand what they are told or what they should do.
[2024-03-06 06:48] LABS: Ethanol < 10 mg/dL (<10)
--- NOTE | 2024-03-06 08:01 | P.PNIM_ITS ---
Progress Note: A&P Assessment and Plan (1) Systolic heart failure: Code(s): I50.20 - Unspecified systolic (congestive) heart failure Status: Acute (2) Severe chronic obstructive pulmonary disease: Code(s): J44.9 - Chronic obstructive pulmonary disease, unspecified Status: Acute (3) Essential hypertension: Code(s): I10 - Essential (primary) hypertension Status: Acute (4) Elevated brain natriuretic peptide (BNP) level: Code(s): R79.89 - Other specified abnormal findings of blood chemistry Status: Acute Plan CHF Exacerbation/ NITA -Lasix 40 mg IV BID -Will trend Cr with increased Lasix from home dosage -06/30/2023 : ECHO left ventricular systolic function 25-30% -BNP : 03287 -On GDMT -CXR:1. Mild pulmonary edema. 2. Cardiomegaly. -Chest CTA : 1. Mild pulmonary edema. 2. No pulmonary embolus. Unilateral leg swelling: No evidence of DVT Subjective Date/time seen: 03/06/24 08:01 Interval history: Patient is admitted due to CHF exacerbation which we believe due to noncomp liance of his medications. Patient reports currently he is homeless. Exam Narrative: Patient is sitting in the stretcher Const: General: comfortable, no acute distress, well developed, alert, awake, ill appearing chronically, tired appearing and average body habitus Nutritional Appearance: average body habitus Orientation/consciousness: patient oriented x3 HENMT: Head: normal to inspection, normocephalic and atraumatic Ears: hearing grossly normal bilaterally Face/Nose/Sinus: normal facial exam Face and sinus: normal facial exam Eyes: General: appearance normal, both eyes and all related structures Pupils: Equal, round and reactive pupils present EOM: EOMs intact bilaterally Neck: Neck: full ROM, no lymphadenopathy and no JVD Thyroid: thyroid normal Lymphatic: no lymphadenopathy noted Resp: Effort & Inspection: normal respiratory effort and able to speak in complete sentences Auscultation: clear to auscultation bilaterally Cardio: Jugular venous distension: no JVD Rate: regular rate Rhythm: regular rhythm Heart sounds: S1 normal heart sound present and S2 normal heart sound present : General: Yes deferred Skin: Rashes: no rashes Wounds: no wounds Neuro: General: patient oriented x3 and CN's II-XI intact bilaterally Cranial nerves: Yes CN's II-XII intact bilaterally and Yes Equal, round and reactive pupils present Cognition (Neuro): normal cognition Speech: normal speech Gait exam (Neuro): Normal gait present Motor exam (neuro): 5/5 motor strength present throughout Extrem: General: normal to inspection, full ROM, no joint enlargement and no pedal edema Other: bilateral lower extremity 3+ edema Objective Data Vital Signs Vital Signs: Vital Signs - 24 hr 03/05/24 19:29 03/05/24 21:37 03/05/24 21:39 Temperature 97.6 F Pulse Rate 102 H 109 H Respiratory Rate 20 Blood Pressure 173/115 H Pulse Oximetry 100 99 Oxygen Delivery Room Air Room Air 03/05/24 21:39 03/05/24 21:43 03/05/24 23:40 Temperature 98 F 98.2 F Pulse Rate 76 81 Respiratory Rate 32 H 22 H Blood Pressure 143/112 H 159/119 H Pulse Oximetry 99 100 97 Oxygen Delivery Room Air 03/06/24 00:27 03/06/24 00:29 03/06/24 02:38 Temperature 98.1 F 98.2 F Pulse Rate 92 90 85 Respiratory Rate 25 H 20 Blood Pressure 148/106 H 120/90 Pulse Oximetry 99 98 Oxygen Delivery 03/06/24 03:00 03/06/24 04:34 03/06/24 04:00 Temperature 98.2 F Pulse Rate 83 67 Respiratory Rate 24 H Blood Pressure 116/74 Pulse Oximetry 100 Oxygen Delivery Room Air 03/06/24 05:56 03/06/24 02:29 Temperature Pulse Rate 65 69 Respiratory Rate Blood Pressure Pulse Oximetry Oxygen Delivery Intake/Output Intake/Output: Intake & Output 03/03/24 03/04/24 03/05/24 03/06/24 23:59 23:59 23:59 23:59 Intake Total 930 Output Total 1650 Balance -720 Meds/Results Medications: Active Medications Generic Name Dose Route Start Last Admin Trade Name Freq PRN Reason Stop Dose Admin Acetaminophen 1,000 mg 03/06/24 02:57 Acetaminophen 500 Mg Tablet PO Q6H PRN Mild Pain (1-3) or Fever Al Hydrox/Mg Hydrox/Simethicone 30 ml 03/06/24 02:57 Mag Hydrox/Al Hydrox/Simeth 30 Ml Udc PO Q6H PRN Indigestion Albuterol 2 puff 03/06/24 03:23 Albuterol Sulfate (*Sp) Aerosol 1 Puff INHALATION Q4HR PRN Shortness Of Breath Or Wheezing Aspirin 81 mg 03/06/24 09:00 Aspirin 81 Mg Enteric Tablet PO QAM [facility] Carvedilol 6.25 mg 03/06/24 09:00 Carvedilol 6.25 Mg Tablet PO Q12HR [facility] Furosemide 40 mg 03/06/24 09:00 Furosemide Inj 40 Mg/4 Ml Vial IV PUSH Q12HR [facility] Ondansetron HCl 4 mg 03/06/24 02:57 Ondansetron Inj 4 Mg/2 Ml Vial IV PUSH Q6H PRN Nausea And Vomiting Perflutren Lipid Microsphere 0 ml 03/06/24 02:55 Perflutren Lipid Microspheres 1.5 Ml Vial Diluted To 10 Ml Total Volume IV PUSH 03/09/24 02:56 ONCE PRN adequate visualization Protocol Polyethylene Glycol 17 gm 03/06/24 02:57 Polyethylene Glycol 3350 17 Gm Powd.Pack PO QAM PRN Constipation Sacubitril/Valsartan 1 tab 03/06/24 09:00 Sacubitril/Valsartan 24-26 Mg Tablet PO Q12HR [facility] Radiology Results: ITS Impressions Chest X-Ray 03/05/24 19:50 IMPRESSION: 1. Mild pulmonary edema. 2. Cardiomegaly. Chest CTA 03/05/24 22:59 IMPRESSION: 1. Mild pulmonary edema. 2. No pulmonary embolus. Labs Labs: Laboratory Results - last 24 hr 03/05/24 03/05/24 03/06/24 20:16 22:18 01:14 WBC 8.8 RBC 4.74 Hgb 14.4 Hct 46.3 MCV 97.7 MCH 30.4 MCHC 31.1 L RDW 14.1 Plt Count 286 MPV 9.7 Immature Gran % (Auto) 0.3 Neut % (Auto) 61.9 Lymph % (Auto) 30.5 [place] % (Auto) 4.1 Eos % (Auto) 2.4 Baso % (Auto) 0.8 Lymph # (Auto) 2.69 [place] # (Auto) 0.4 Eos # (Auto) 0.2 Baso # (Auto) 0.1 Abs Immat Gran (auto) 0.03 Absolute Neuts (auto) 5.5 Absolute Nucleated RBC 0.000 Nucleated RBC % 0.0 PT 15.9 H INR 1.2 APTT 32.5 Sodium 140 Potassium 4.6 Chloride 104 Carbon Dioxide 31 H Anion Gap 5 BUN 31 H D Creatinine 1.40 H Estim Creat Clear Calc 51 Estimated GFR 51 L Glucose 103 Calcium 9.5 Total Bilirubin 1.1 AST 37 ALT 34 Alkaline Phosphatase 82 Troponin I 0.039 H* 0.035 H* 0.035 H* NT-Pro-B Natriuret Pep 05574 H Total Protein 8.0 Albumin 4.2 Lipase 60 Ethyl Alcohol 03/06/24 06:21 WBC RBC Hgb Hct MCV MCH MCHC RDW Plt Count MPV Immature Gran % (Auto) Neut % (Auto) Lymph % (Auto) [place] % (Auto) Eos % (Auto) Baso % (Auto) Lymph # (Auto) [place] # (Auto) Eos # (Auto) Baso # (Auto) Abs Immat Gran (auto) Absolute Neuts (auto) Absolute Nucleated RBC Nucleated RBC % PT INR APTT Sodium Potassium Chloride Carbon Dioxide Anion Gap BUN Creatinine Estim Creat Clear Calc Estimated GFR Glucose Calcium Total Bilirubin AST ALT Alkaline Phosphatase Troponin I NT-Pro-B Natriuret Pep Total Protein Albumin Lipase Ethyl Alcohol < 10 Hospitalist MIPS Advance Care Plan I have confirmed that the patient's Advanced Care Plan is present, code status is documented, or surrogate decision maker is listed in patient medical record.: Yes Medication Reconciliation I have utilized all available resources to obtain, update and review the patients current medications (includes all prescriptions, OTC, herbals, ca nnabis, and nutritional supplements).: Yes
[2024-03-06] MEDS: FUROSEMIDE INJ 40 MG/4 ML VIAL IV PUSH ×2 (09:09→20:36)
[2024-03-06] MEDS: ASPIRIN 81 MG ENTERIC TABLET PO (09:09)
[2024-03-06 09:46] LABS: Amphetamine Screen Urine Positive (Negative); Barbiturate Screen Urine Negative (Negative); Benzodiazepines Screen Urine Negative (Negative); Cannabinoid Screen Urine Negative (Negative); Cocaine Screen Urine Negative (Negative); Methadone Screen Urine Negative (Negative); Opiate Screen Urine Negative (Negative); Phencyclidine Screen Urine Negative (Negative)
--- NOTE | 2024-03-06 11:59 | PM.CNCAR ---
Assessment and Plan Assessment and plan (1) Acute exacerbation of CHF (congestive heart failure): Code(s): I50.9 - Heart failure, unspecified Status: Acute (2) Systolic heart failure: Code(s): I50.20 - Unspecified systolic (congestive) heart failure Status: Acute Plan 1. Acute on chronic systolic HF NYHA II-III, Stage C EF 25-30% (TTE 06/2023) NICM, nonobstructive CAD as per the patient and cardiac catheterization done a few months ago Most likely heart failure precipitated by dietary discretions and nonadherence to medications -continue intravenous diuretics -continue carvedilol and Entresto -SGLT2 INHIBITORS and MRA to be added as an outpatient 2. 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 Denies any chest pain That is as per the patient he had a cardiac catheterization done a few months ago with apparently showed nonobstructive disease and nonischemic cardiomyopathy ECG shows normal sinus rhythm, LVH with strain pattern. Echo done in June 2023 shows an EF of 25-30%, grade 1 diastolic dysfunction, left ventricular enlargement, moderate mitral regurgitation Troponins have been flat BNP 14 400 Review of Systems Review of Systems: As reviewed above in [facility] Past Medical History Medical History Bronchitis Nose fracture Severe chronic obstructive pulmonary disease With good response to bronchodilator noted on PFTs 10/2020 Toe fracture, left multiple toes Surgical History Surgical History History of tonsillectomy Family History Family History (Updated 03/06/24 @ 02:46 by Monalisa Anaya RN) Mother , in her 80s Diabetes mellitus Lung cancer Father , at 83 years old Acute myocardial infarction Biventricular ICD (implantable cardioverter-defibrillator) in place Sibling Lung cancer Social History Social History Social History: Patient was 3 times. His last between 3 and 5 years ago cancer. He then had a girlfriend who also developed cancer and in August of 2022. 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 He briefly smoked when he was younger. He denies any significant alcohol use. He denies any illicit substance use. Code status: DNR/DNI (per patient request) The patient reports he does not have a surrogate decision maker and has no family members left. He does not have any friends he feels close enough to ask to make that type of decision. Years smoked: 5 Smoking status: Never smoker Alcohol intake: never Substance use: former Substance use type: marijuana Do You Feel Safe in your Home?: Yes Lack of Transportation: YES Lack of Food: Often True Current Housing: I Do Not Have Housing Concerned About Future Housing: YES Difficulty Paying Gas/Electric Bills: No Difficulty Paying for Meds: YES Currently Unemployed: No Education: Decline to Answer Difficulty w/ Childcare or Family Care: No Gender identity (if verbalized by the patient): Male Spiritual care concerns: No Meds Home Medications and Allergies Home Medications Medication Instructions Recorded Confirmed Type carvedilol 6.25 mg tablet (Coreg) 6.25 mg PO Q12HR #60 tabs 07/01/23 03/06/24 Rx furosemide 20 mg tablet 20 mg PO DAILY #30 tabs 07/01/23 03/06/24 Rx sacubitril 24 mg-valsartan 26 mg 1 tab PO Q12HR #60 tabs 07/01/23 03/06/24 Rx tablet (Entresto) albuterol sulfate 90 mcg/actuation 2 puff inhalation Q4H PRN 03/06/24 03/06/24 History aerosol inhaler Shortness Of Breath Or Wheezing aspirin 81 mg tablet 81 mg PO DAILY 03/06/24 03/06/24 History Allergies Allergy/AdvReac Type Severity Reaction Status Date / Time Sulfa (Sulfonamide Allergy Mild Itching Verified 03/06/24 02:32 Antibiotics) Vital Signs Vital Signs - 24 hr 03/05/24 19:29 03/05/24 21:37 03/05/24 21:39 Temperature 36.4 C Pulse Rate 102 H 109 H Respiratory Rate 20 Blood Pressure 173/115 H Pulse Oximetry 100 99 Oxygen Delivery Room Air Room Air 03/05/24 21:39 03/05/24 21:43 03/05/24 23:40 Temperature 36.6 C 36.8 C Pulse Rate 76 81 Respiratory Rate 32 H 22 H Blood Pressure 143/112 H 159/119 H Pulse Oximetry 99 100 97 Oxygen Delivery Room Air 03/06/24 00:27 03/06/24 00:29 03/06/24 02:38 Temperature 36.7 C 36.8 C Pulse Rate 92 90 85 Respiratory Rate 25 H 20 Blood Pressure 148/106 H 120/90 Pulse Oximetry 99 98 Oxygen Delivery 03/06/24 03:00 03/06/24 04:34 03/06/24 04:00 Temperature 36.8 C Pulse Rate 83 67 Respiratory Rate 24 H Blood Pressure 116/74 Pulse Oximetry 100 Oxygen Delivery Room Air 03/06/24 05:56 03/06/24 02:29 03/06/24 08:00 Temperature 36.4 C Pulse Rate 65 69 63 Respiratory Rate 24 H Blood Pressure 121/85 Pulse Oximetry 96 Oxygen Delivery 03/06/24 08:00 03/06/24 10:00 03/06/24 11:44 Temperature 36.4 C Pulse Rate 93 64 Respiratory Rate 22 H Blood Pressure 136/111 H Pulse Oximetry 98 Oxygen Delivery Room Air Exam Narrative: Patient is sitting in the stretcher Const: General: comfortable, no acute distress, well developed, alert, awake, ill appearing chronically, tired appearing and average body habitus Nutritional Appearance: average body habitus Orientation/consciousness: patient oriented x3 HENMT: Head: normal to inspection, normocephalic and atraumatic Ears: hearing grossly normal bilaterally Face/Nose/Sinus: normal facial exam Face and sinus: normal facial exam Eyes: General: appearance normal, both eyes and all related structures Pupils: Equal, round and reactive pupils present EOM: EOMs intact bilaterally Neck: Neck: full ROM, no lymphadenopathy and no JVD Thyroid: thyroid normal Lymphatic: no lymphadenopathy noted Resp: Effort & Inspection: normal respiratory effort and able to speak in complete sentences Auscultation: clear to auscultation bilaterally Cardio: Jugular venous distension: no JVD Rate: regular rate Rhythm: regular rhythm Heart sounds: S1 normal heart sound present and S2 normal heart sound present : General: Yes deferred Skin: Rashes: no rashes Wounds: no wounds Neuro: General: patient oriented x3 and CN's II-XI intact bilaterally Cranial nerves: Yes CN's II-XII intact bilaterally and Yes Equal, round and reactive pupils present Cognition (Neuro): normal cognition Speech: normal speech Gait exam (Neuro): Normal gait present Motor exam (neuro): 5/5 motor strength present throughout Extrem: General: normal to inspection, full ROM, no joint enlargement and no pedal edema Other: bilateral lower extremity 3+ edema Results Labs and Meds 03/05/24 20:16 03/05/24 20:16 Lab results: Cardiac Enzymes 03/05/24 03/05/24 03/06/24 Range/Units 20:16 22:18 01:14 AST 37 (17-59) U/L Troponin I 0.039 H* 0.035 H* 0.035 H* (0.000-0.034) ng/mL Coagulation 03/05/24 Range/Units 20:16 PT 15.9 H (11.1-14.7) Seconds APTT 32.5 (22.3-36.8) Seconds CBC 03/05/24 Range/Units 20:16 WBC 8.8 (4.5-10.0) K/mm3 RBC 4.74 (4.6-6.20) M/mm3 Hgb 14.4 (14.0-18.0) g/dL Hct 46.3 (42.0-52.0) % Plt Count 286 (150-375) k/mm3 Lymph # (Auto) 2.69 (0.9-3.2) K/mm3 [place] # (Auto) 0.4 (0.1-0.6) K/mm3 Eos # (Auto) 0.2 (0-0.3) K/mm3 Baso # (Auto) 0.1 (0.0-0.1) K/mm3 Comprehensive Metabolic Panel 03/05/24 Range/Units 20:16 Sodium 140 (137-145) mmol/L Potassium 4.6 (3.4-5.0) mmol/L Chloride 104 (98-107) mmol/L Carbon Dioxide 31 H (22-30) mmol/L BUN 31 H D (9-20) mg/dL Creatinine 1.40 H (0.7-1.3) mg/dL Glucose 103 (65-110) mg/dL Calcium 9.5 (8.4-10.2) mg/dL AST 37 (17-59) U/L ALT 34 (6-50) U/L Alkaline Phosphatase 82 (38-126) U/L Total Protein 8.0 (6.3-8.2) g/dL Albumin 4.2 (3.5-5.1) g/dL Intake and Output 03/05/24 03/06/24 03/06/24 23:59 07:59 15:59 Intake Total 930 240 Output Total 1650 Balance -720 240 Intake: Oral 930 240 Output: Urine 1650 Patient Weight 03/06/24 23:59 Weight 95 kg
--- NOTE | 2024-03-06 17:45 | PC.NURSE ---
This patient, Jeevan Castellanos, was received from U 202 on 03/06/24 at 1745. Patient/family oriented to unit policies and routines. Report per PRINCE Grewal.
[2024-03-06] MEDS: ALBUTEROL SULFATE (*SP) AEROSOL 1 PUFF 2 PUFF INHALATION (19:19)
[2024-03-07] VITALS (8 sets, daily range): BP systolic 122–129; BP diastolic 84–90; PULSE 57–97; RESP 16–20; TEMP 36.1–36.7; O2SAT 94–99
[2024-03-07 06:25] LABS: Hematocrit 48.9 % (42.0-52.0); Mean Corpuscular HGB Conc 32.7 g/dl (32-36); Mean Corpuscular Volume 94.8 fl (80-100); Mean Platelet Volume 9.3 fl (7.4-10.4); Platelet Count Result 293 k/mm3 (150-375); Red Blood Count 5.16 M/mm3 (4.6-6.20); Red Cell Distribution Width 14.1 % (11.5-14.5); White Blood Count 8.4 K/mm3 (4.5-10.0)
[2024-03-07 06:36] LABS: Alanine Aminotransferase 27 U/L (6-50); Albumin Level 3.8 g/dL (3.5-5.1); Alkaline Phosphatase 74 U/L (38-126); Anion Gap 6 mmol/L (4-12); Aspartate Amino Transferase 31 U/L (17-59); Bilirubin,Total 1.1 mg/dL (0.2-1.3); Blood Urea Nitrogen 33 mg/dL (9-20); Calcium 8.9 mg/dL (8.4-10.2); Carbon Dioxide 34 mmol/L (22-30); Chloride 97 mmol/L (98-107); Estimated CRCL calculation 51 ml/min; Estimated Glomerular Filt Rate 51; Glucose 123 mg/dL (65-110); Sodium 137 mmol/L (137-145)
--- NOTE | 2024-03-07 08:01 | PM.IMPN ---
Progress Note: A&P Assessment and Plan (1) Systolic heart failure: Code(s): I50.20 - Unspecified systolic (congestive) heart failure Status: Acute (2) Severe chronic obstructive pulmonary disease: Code(s): J44.9 - Chronic obstructive pulmonary disease, unspecified Status: Acute (3) Essential hypertension: Code(s): I10 - Essential (primary) hypertension Status: Acute (4) Elevated brain natriuretic peptide (BNP) level: Code(s): R79.89 - Other specified abnormal findings of blood chemistry Status: Acute Plan CHF Exacerbation/ NITA -Lasix 40 mg IV BID -Will trend Cr with increased Lasix from home dosage -03/06: Left ventricular systolic function is severely reduced with a visually estimated ejection fraction of 25-30%. -06/30/2023 : ECHO left ventricular systolic function 25-30% -BNP : 89661 -On carvedilol 6.25 mg b.i.d., Entresto 08/01/2025 b.i.d. -CXR:1. Mild pulmonary edema. 2. Cardiomegaly. -Chest CTA : 1. Mild pulmonary edema. 2. No pulmonary embolus. Unilateral leg swelling: No evidence of DVT Subjective Date/time seen: 03/07/24 08:01 Exam Narrative: Patient is sitting in the stretcher Const: General: comfortable, no acute distress, well developed, alert, awake, ill appearing chronically, tired appearing and average body habitus Nutritional Appearance: average body habitus Orientation/consciousness: patient oriented x3 HENMT: Head: normal to inspection, normocephalic and atraumatic Ears: hearing grossly normal bilaterally Face/Nose/Sinus: normal facial exam Face and sinus: normal facial exam Eyes: General: appearance normal, both eyes and all related structures Pupils: Equal, round and reactive pupils present EOM: EOMs intact bilaterally Neck: Neck: full ROM, no lymphadenopathy and no JVD Thyroid: thyroid normal Lymphatic: no lymphadenopathy noted Resp: Effort & Inspection: normal respiratory effort and able to speak in complete sentences Auscultation: clear to auscultation bilaterally Cardio: Jugular venous distension: no JVD Rate: regular rate Rhythm: regular rhythm Heart sounds: S1 normal heart sound present and S2 normal heart sound present : General: Yes deferred Skin: Rashes: no rashes Wounds: no wounds Neuro: General: patient oriented x3 and CN's II-XI intact bilaterally Cranial nerves: Yes CN's II-XII intact bilaterally and Yes Equal, round and reactive pupils present Cognition (Neuro): normal cognition Speech: normal speech Gait exam (Neuro): Normal gait present Motor exam (neuro): 5/5 motor strength present throughout Extrem: General: normal to inspection, full ROM, no joint enlargement and no pedal edema Other: bilateral lower extremity 3+ edema Objective Data Vital Signs Vital Signs: Vital Signs - 24 hr 03/06/24 10:00 03/06/24 11:44 03/06/24 12:00 Temperature 97.6 F Pulse Rate 93 64 Respiratory Rate 22 H Blood Pressure 136/111 H Pulse Oximetry 98 Oxygen Delivery Room Air Oxygen Flow Rate 03/06/24 12:00 03/06/24 13:49 03/06/24 14:17 Temperature Pulse Rate 94 94 Respiratory Rate Blood Pressure Pulse Oximetry 78 L Oxygen Delivery Room Air Oxygen Flow Rate 03/06/24 14:18 03/06/24 15:27 03/06/24 16:00 Temperature 97.8 F Pulse Rate 58 L 72 Respiratory Rate 20 Blood Pressure 122/88 Pulse Oximetry 94 100 Oxygen Delivery Nasal Cannula Oxygen Flow Rate 2 03/06/24 19:19 03/06/24 20:35 03/06/24 20:00 Temperature 97.4 F L Pulse Rate 82 88 89 Respiratory Rate 18 16 Blood Pressure 131/91 H Pulse Oximetry 100 Oxygen Delivery Oxygen Flow Rate 03/06/24 20:00 03/06/24 20:00 03/07/24 00:00 Temperature Pulse Rate 70 57 L Respiratory Rate Blood Pressure Pulse Oximetry Oxygen Delivery Room Air Oxygen Flow Rate 03/07/24 04:00 03/07/24 06:28 03/07/24 07:51 Temperature 97.0 F L 98.0 F Pulse Rate 66 62 80 Respiratory Rate 16 20 Blood Pressure 122/84 129/90 Pulse Oximetry 94 99 Oxygen Delivery Oxygen Flow Rate Intake/Output Intake/Output: Intake & Output 03/04/24 03/05/24 03/06/24 03/07/24 23:59 23:59 23:59 23:59 Intake Total 2370 600 Output Total 4300 950 Balance -1930 -350 Meds/Results Medications: Active Medications Generic Name Dose Route Start Last Admin Trade Name Freq PRN Reason Stop Dose Admin Acetaminophen 1,000 mg 03/06/24 02:57 Acetaminophen 500 Mg Tablet PO Q6H PRN Mild Pain (1-3) or Fever Al Hydrox/Mg Hydrox/Simethicone 30 ml 03/06/24 02:57 Mag Hydrox/Al Hydrox/Simeth 30 Ml Udc PO Q6H PRN Indigestion Albuterol 2 puff 03/06/24 03:23 03/06/24 19:19 Albuterol Sulfate (*Sp) Aerosol 1 Puff INHALATION 2 puff Q4HR PRN Administration Shortness Of Breath Or Wheezing Aspirin 81 mg 03/06/24 09:00 03/06/24 09:09 Aspirin 81 Mg Enteric Tablet PO 81 mg QAM SOLEDAD Administration Carvedilol 6.25 mg 03/06/24 09:00 03/06/24 20:35 Carvedilol 6.25 Mg Tablet PO 6.25 mg Q12HR SOLEDAD Administration Furosemide 40 mg 03/06/24 09:00 03/06/24 20:36 Furosemide Inj 40 Mg/4 Ml Vial IV PUSH 40 mg Q12HR SOLEDAD Administration Ondansetron HCl 4 mg 03/06/24 02:57 Ondansetron Inj 4 Mg/2 Ml Vial IV PUSH Q6H PRN Nausea And Vomiting Perflutren Lipid Microsphere 0 ml 03/06/24 02:55 Perflutren Lipid Microspheres 1.5 Ml Vial Diluted To 10 Ml Total Volume IV PUSH 03/09/24 02:56 ONCE PRN adequate visualization Protocol Polyethylene Glycol 17 gm 03/06/24 02:57 Polyethylene Glycol 3350 17 Gm Powd.Pack PO QAM PRN Constipation Sacubitril/Valsartan 1 tab 03/06/24 09:00 03/06/24 20:35 Sacubitril/Valsartan 24-26 Mg Tablet PO 1 tab Q12HR SOLEDAD Administration Radiology Results: ITS Impressions Chest X-Ray 03/05/24 19:50 IMPRESSION: 1. Mild pulmonary edema. 2. Cardiomegaly. Chest CTA 03/05/24 22:59 IMPRESSION: 1. Mild pulmonary edema. 2. No pulmonary embolus. Venous Doppler Study 03/06/24 12:07 IMPRESSION: 1. No deep venous thrombosis in either lower limb. Labs Labs: Laboratory Results - last 24 hr 03/06/24 03/07/24 09:14 06:16 WBC 8.4 RBC 5.16 Hgb 16.0 Hct 48.9 MCV 94.8 MCH 31.0 MCHC 32.7 RDW 14.1 Plt Count 293 MPV 9.3 Sodium 137 Potassium 4.0 Chloride 97 L Carbon Dioxide 34 H Anion Gap 6 BUN 33 H Creatinine 1.40 H Estim Creat Clear Calc 51 Estimated GFR 51 L Glucose 123 H Calcium 8.9 Total Bilirubin 1.1 AST 31 ALT 27 Alkaline Phosphatase 74 Total Protein 7.0 Albumin 3.8 Urine Opiates Screen Negative Urine Methadone Screen Negative Ur Barbiturates Screen Negative Ur Phencyclidine Scrn Negative Ur Amphetamine Screen Positive A U Benzodiazepines Scrn Negative Urine Cocaine Screen Negative U Cannabinoids Screen Negative
[2024-03-07] MEDS: SACUBITRIL/VALSARTAN 24-26 MG TABLET 1 TAB PO (10:34)
[2024-03-07] MEDS: carvediloL 6.25 MG TABLET PO (10:34)
[2024-03-07] MEDS: FUROSEMIDE INJ 40 MG/4 ML VIAL IV PUSH (10:34)
[2024-03-07] MEDS: ASPIRIN 81 MG ENTERIC TABLET PO (10:34)
--- NOTE | 2024-03-07 12:35 | PM.PNCARD ---
Progress Note: A&P Assessment and Plan (1) Acute exacerbation of CHF (congestive heart failure): Code(s): I50.9 - Heart failure, unspecified Status: Acute (2) Systolic heart failure: Code(s): I50.20 - Unspecified systolic (congestive) heart failure Status: Acute Plan 1. Acute on chronic systolic HF NYHA II-III, Stage C EF 25-30% (TTE 06/2023) NICM, nonobstructive CAD as per the patient and cardiac catheterization done a few months ago Most likely heart failure precipitated by dietary discretions and nonadherence to medications -Switch to oral lasix 40 mg OD -continue carvedilol and Entresto -SGLT2 INHIBITORS and MRA to be added as an outpatient 2. Type 2 AK In the setting of heart failure Continue aspirin statin No need for heparin No need for further invasive evaluation Cardiology will sign off. please call us if there are any questions or concerns Subjective Date/time seen: 03/07/24 12:35 Interval history: No acute events overnight Feels better, - 1 L in last 24 hours oral intake very high though 3800 ml Exam Narrative: Patient is sitting in the stretcher Const: General: comfortable, no acute distress, well developed, alert, awake, ill appearing chronically, tired appearing and average body habitus Nutritional Appearance: average body habitus Orientation/consciousness: patient oriented x3 HENMT: Head: normal to inspection, normocephalic and atraumatic Ears: hearing grossly normal bilaterally Face/Nose/Sinus: normal facial exam Face and sinus: normal facial exam Eyes: General: appearance normal, both eyes and all related structures Pupils: Equal, round and reactive pupils present EOM: EOMs intact bilaterally Neck: Neck: full ROM, no lymphadenopathy and no JVD Thyroid: thyroid normal Lymphatic: no lymphadenopathy noted Resp: Effort & Inspection: normal respiratory effort and able to speak in complete sentences Auscultation: clear to auscultation bilaterally Cardio: Jugular venous distension: no JVD Rate: regular rate Rhythm: regular rhythm Heart sounds: S1 normal heart sound present and S2 normal heart sound present : General: Yes deferred Skin: Rashes: no rashes Wounds: no wounds Neuro: General: patient oriented x3 and CN's II-XI intact bilaterally Cranial nerves: Yes CN's II-XII intact bilaterally and Yes Equal, round and reactive pupils present Cognition (Neuro): normal cognition Speech: normal speech Gait exam (Neuro): Normal gait present Motor exam (neuro): 5/5 motor strength present throughout Extrem: General: normal to inspection, full ROM, no joint enlargement and no pedal edema Other: bilateral lower extremity 3+ edema Objective Data Vital Signs Vital Signs: Vital Signs - 24 hr 03/06/24 13:49 03/06/24 14:17 03/06/24 14:18 Temperature Pulse Rate 94 Respiratory Rate Blood Pressure Pulse Oximetry 78 L 94 Oxygen Delivery Room Air Nasal Cannula Oxygen Flow Rate 2 03/06/24 15:27 03/06/24 16:00 03/06/24 19:19 Temperature 36.6 C Pulse Rate 58 L 72 82 Respiratory Rate 20 18 Blood Pressure 122/88 Pulse Oximetry 100 Oxygen Delivery Oxygen Flow Rate 03/06/24 20:35 03/06/24 20:00 03/06/24 20:00 Temperature 36.3 C L Pulse Rate 88 89 Respiratory Rate 16 Blood Pressure 131/91 H Pulse Oximetry 100 Oxygen Delivery Room Air Oxygen Flow Rate 03/06/24 20:00 03/07/24 00:00 03/07/24 04:00 Temperature Pulse Rate 70 57 L 66 Respiratory Rate Blood Pressure Pulse Oximetry Oxygen Delivery Oxygen Flow Rate 03/07/24 06:28 03/07/24 07:51 03/07/24 10:34 Temperature 36.1 C L 36.7 C Pulse Rate 62 80 80 Respiratory Rate 16 20 Blood Pressure 122/84 129/90 Pulse Oximetry 94 99 Oxygen Delivery Oxygen Flow Rate 03/07/24 08:02 Temperature Pulse Rate 97 Respiratory Rate Blood Pressure Pulse Oximetry Oxygen Delivery Oxygen Flow Rate Intake/Output Intake/Output: Intake & Output 03/04/24 03/05/24 03/06/24 03/07/24 23:59 23:59 23:59 23:59 Intake Total 2370 1544 Output Total 4300 1550 Balance -1929 Meds/Results Medications: Active Medications Generic Name Dose Route Start Last Admin Trade Name Freq PRN Reason Stop Dose Admin Acetaminophen 1,000 mg 03/06/24 02:57 Acetaminophen 500 Mg Tablet PO Q6H PRN Mild Pain (1-3) or Fever Al Hydrox/Mg Hydrox/Simethicone 30 ml 03/06/24 02:57 Mag Hydrox/Al Hydrox/Simeth 30 Ml Udc PO Q6H PRN Indigestion Albuterol 2 puff 03/06/24 03:23 03/06/24 19:19 Albuterol Sulfate (*Sp) Aerosol 1 Puff INHALATION 2 puff Q4HR PRN Administration Shortness Of Breath Or Wheezing Aspirin 81 mg 03/06/24 09:00 03/07/24 10:34 Aspirin 81 Mg Enteric Tablet PO 81 mg QAM SOLEDAD Administration Carvedilol 6.25 mg 03/06/24 09:00 03/07/24 10:34 Carvedilol 6.25 Mg Tablet PO 6.25 mg Q12HR SOLEDAD Administration Furosemide 40 mg 03/06/24 09:00 03/07/24 10:34 Furosemide Inj 40 Mg/4 Ml Vial IV PUSH 40 mg Q12HR SOLEDAD Administration Ondansetron HCl 4 mg 03/06/24 02:57 Ondansetron Inj 4 Mg/2 Ml Vial IV PUSH Q6H PRN Nausea And Vomiting Perflutren Lipid Microsphere 0 ml 03/06/24 02:55 Perflutren Lipid Microspheres 1.5 Ml Vial Diluted To 10 Ml Total Volume IV PUSH 03/09/24 02:56 ONCE PRN adequate visualization Protocol Polyethylene Glycol 17 gm 03/06/24 02:57 Polyethylene Glycol 3350 17 Gm Powd.Pack PO QAM PRN Constipation Sacubitril/Valsartan 1 tab 03/06/24 09:00 03/07/24 10:34 Sacubitril/Valsartan 24-26 Mg Tablet PO 1 tab Q12HR SOLEDAD Administration Radiology Results: ITS Impressions Chest X-Ray 03/05/24 19:50 IMPRESSION: 1. Mild pulmonary edema. 2. Cardiomegaly. Chest CTA 03/05/24 22:59 IMPRESSION: 1. Mild pulmonary edema. 2. No pulmonary embolus. Venous Doppler Study 03/06/24 12:07 IMPRESSION: 1. No deep venous thrombosis in either lower limb. Labs Labs: Laboratory Results - last 24 hr 03/07/24 06:16 WBC 8.4 RBC 5.16 Hgb 16.0 Hct 48.9 MCV 94.8 MCH 31.0 MCHC 32.7 RDW 14.1 Plt Count 293 MPV 9.3 Sodium 137 Potassium 4.0 Chloride 97 L Carbon Dioxide 34 H Anion Gap 6 BUN 33 H Creatinine 1.40 H Estim Creat Clear Calc 51 Estimated GFR 51 L Glucose 123 H Calcium 8.9 Total Bilirubin 1.1 AST 31 ALT 27 Alkaline Phosphatase 74 Total Protein 7.0 Albumin 3.8
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
== END 2024-03-07 18:00 | disposition home or self-care (01) | DRG 291 ==
LOC: ANHED 22:12 → ANHIMU 03-06 00:31 → ANH3MEDSUR 03-07 14:28 → ANHIMU 03-09 11:50
PROVIDERS: Admitting Provider Internal Medicine; Emergency Provider Student in an Organized Health Care Education/Training Program; PCP Emergency Medicine; Visit Provider General Practice
DX: I11.0 Hypertensive heart disease with heart failure (principal); I50.23 Acute on chronic systolic (congestive) heart failure; Z59.02 Unsheltered homelessness; N17.9 Acute kidney failure, unspecified; J44.9 Chronic obstructive pulmonary disease, unspecified; Z91.148 Patient's other noncompliance with medication regimen for other reason
CPT/HCPCS: 36415; 71046; 71275; 80053; 80307; 82077; 83690; 83880; 84484; 85025; 85027; 85610; 85730; 93005; 93306; 93970; 94640; 99285; A9270; J1940; Q9967

== ENCOUNTER 2024-05-06 22:34 | Inpatient (IN) | payer MEDICARE, MEDICAID, SELFPAY ==
--- NOTE | ~2024-05-06 | XR_ITS ---
Clinical Indication: Shortness of breath PA and lateral views of the chest: Comparison: 03/05/2024 Findings: Questionable minimal bibasilar pulmonary edema. No pleural effusions. Cardiomediastinal si lhouette is stable. Bones and soft tissues are unremarkable. Impression: Questionable minimal basilar pulmonary edema, or possibly minimal right basilar pneumonia. Correlate clinically. Stable cardiomegaly. Reviewed, dictated and finalized at [facility] [place]. DYER Impression: Questionable minimal basilar pulmonary edema, or possibly minimal right basilar pneumonia. Correlate clinically. Stable cardiomegaly.
[2024-05-06 23:10] VITALS: BP 172/104; PULSE 113; RESP 20; TEMP 38.1; O2SAT 97
[2024-05-07] VITALS (14 sets, daily range): BP systolic 110–148; BP diastolic 67–110; PULSE 66–109; RESP 15–22; TEMP 36.4–37.1; O2SAT 94–98; BMI 29.2
--- NOTE | 2024-05-07 02:46 | ECG_ITS ---
Test Date: 2024-05-07 02:49:41 Measurements Intervals Homer Rate: 110 P: 61 ME: 160 QRS: -23 QRSD: 105 T: 125 QT: 326 QTc: 442 Interpretive Statements SINUS TACHYCARDIA LEFT ATRIAL ENLARGEMENT [-0.15mV P WAVE IN V1/V2] BORDERLINE LEFT AXIS DEVIATION [QRS AXIS < -20] LEFT VENTRICULAR HYPERTROPHY AND ST-T CHANGE [VOLTAGE CRITERIA PLUS ST/T ABNORMALITY] Compared to ECG 03/06/2024 01:22:46 Sinus rhythm no longer present Sinus arrhythmia no longer present Intraventricular conduction delay no longer present ST (T wave) deviation still present Electronically Signed On 05-07-2024 11:56:45 DOG TRAINER by Patricia Lantigua
[2024-05-07 02:59] LABS: Basophils Absolute Auto 0.1 K/mm3 (0.0-0.1); Basophils Percent Auto 1.1 % (0.2-1.2); Eosinophils Absolute Auto 0.6 K/mm3 (0-0.3); Eosinophils Percent Auto 8.7 % (0-4.4); Hematocrit 43.3 % (42.0-52.0); Hemoglobin 14.7 g/dL (14.0-18.0); Immature Granulocyte Absolute 0.01 K/mm3 (0.00-0.031); Immature Granulocyte Percent A 0.1 % (0-0.5); Lymphocytes Percent Auto 24.5 % (18.3-44.2); Mean Corpuscular HGB Conc 33.9 g/dl (32-36); Mean Corpuscular Hemoglobin 30.4 pg (26-34); Mean Corpuscular Volume 89.6 fl (80-100); Mean Platelet Volume 9.7 fl (7.4-10.4); Monocytes Absolute Auto 0.7 K/mm3 (0.1-0.6); Monocytes Percent Auto 9.3 % (2.6-8.5); Neutrophils Absolute Auto 4.1 K/mm3 (1.3-6.7); Neutrophils Percent Auto 56.3 % (45.5-73.1); Platelet Count Result 258 k/mm3 (150-375); Red Blood Count 4.83 M/mm3 (4.6-6.20); Red Cell Distribution Width 13.9 % (11.5-14.5); White Blood Count 7.4 K/mm3 (4.5-10.0)
[2024-05-07 03:08] LABS: Alanine Aminotransferase 19 U/L (6-50); Albumin Level 4.1 g/dL (3.5-5.1); Alkaline Phosphatase 83 U/L (38-126); Anion Gap 11 mmol/L (4-12); Aspartate Amino Transferase 24 U/L (17-59); Blood Urea Nitrogen 18 mg/dL (9-20); Calcium 9.3 mg/dL (8.4-10.2); Carbon Dioxide 23 mmol/L (22-30); Chloride 101 mmol/L (98-107); Estimated CRCL calculation 69 ml/min; Estimated Glomerular Filt Rate > 60; Glucose 107 mg/dL (65-110); Potassium 4.5 mmol/L (3.4-5.0); Sodium 135 mmol/L (137-145)
[2024-05-07 03:17] LABS: NT Pro B Type Natriuretic Pept 14500 pg/mL (19.9-100)
--- NOTE | 2024-05-07 04:10 | ED_ITS ---
HPI - General Adult General Chief complaint: Shortness of Breath/Dyspnea Stated complaint: sob Time Seen by Provider: 05/07/24 03:27 History of Present Illness HPI narrative: Patient is a 68-year-old male who presents to the emergency department this evening complaining of worsening shortness of breath throughout the past week. States that he is out of his blood pressure medication, his water pill and his inhalers. Admits that he does have a history of both CHF and COPD. Patient also is complaining of swelling to his bilateral lower extremity right greater than the left states that that has always been the case his right leg always swells more than his left. Currently denying any chest pain, nausea or vomiting. No additional symptoms or concerns at this time. Related Data Home Medications ?Medication ?Instructions ?Recorded ?Confirmed ?Last Taken ?Type albuterol sulfate 90 mcg/actuation 2 puff inhalation Q4H PRN 03/06/24 03/06/24 Unknown History aerosol inhaler Shortness Of Breath Or Wheezing aspirin 81 mg tablet 81 mg PO DAILY 03/06/24 03/06/24 Unknown History Allergies Allergy/AdvReac Type Severity Reaction Status Date / Time Sulfa (Sulfonamide Allergy Mild Itching Verified 05/06/24 23:17 Antibiotics) Review of Systems 2 Review of Systems: All systems are reviewed and are negative unless stated otherwise in the HPI. [facility] Past Medical History Medical History Severe chronic obstructive pulmonary disease With good response to bronchodilator noted on PFTs 10/2020 Toe fracture, left multiple toes Bronchitis Nose fracture Surgical History Surgical History History of tonsillectomy Family History Family History Mother , in her 80s Diabetes mellitus Lung cancer Father , at 83 years old Acute myocardial infarction Biventricular ICD (implantable cardioverter-defibrillator) in place Sibling Lung cancer Social History Social History Social History: Patient was 3 times. His last between 3 and 5 years ago cancer. He then had a girlfriend who also developed cancer and in August of 2022. 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 He briefly smoked when he was younger. He denies any significant alcohol use. He denies any illicit substance use. Code status: DNR/DNI (per patient request) The patient reports he does not have a surrogate decision maker and has no family members left. He does not have any friends he feels close enough to ask to make that type of decision. Years smoked: 5 Smoking status: Never smoker Alcohol intake: never Substance use: former Substance use type: marijuana Do You Feel Safe in your Home?: Yes Lack of Transportation: YES Lack of Food: Often True Current Housing: I Do Not Have Housing Concerned About Future Housing: YES Difficulty Paying Gas/Electric Bills: No Difficulty Paying for Meds: YES Currently Unemployed: No Education: Decline to Answer Difficulty w/ Childcare or Family Care: No Gender identity (if verbalized by the patient): Male Spiritual care concerns: No Exam 2 Narrative: General: Alert, awake, afebrile, in no acute distress. HEENT: PERRL, no rhinorrhea, no post nasal drip, oropharynx clear. Neck: Trachea midline, no JVD, no lymphadenopathy. Cardiovascular: Tachycardic with regular rhythm, no murmurs, rubs or gallops, bilateral lower extremity pitting edema right greater than left. Respiratory: Diffuse bilateral wheezing, no tachypnea, no respiratory distress. Abdomen: Soft, nontender, nondistended, no rebound, no guarding, no peritoneal signs. Musculoskeletal: No joint swelling or deformity, normal muscle tone. Skin: No rashes or petechia, no signs of infection. Psychiatric: Alert and oriented, normal behavior and judgment for situation. Neurological: Alert and oriented to person, place, and time. Follows all commands. No focal deficits, speech is clear and fluent. Course Vital Signs Vital signs: Vital Signs Temperature 100.6 F H 05/06/24 23:10 Pulse Rate 113 H 05/06/24 23:10 Respiratory Rate 20 05/06/24 23:10 Blood Pressure 172/104 H 05/06/24 23:10 Pulse Oximetry 97 01/23/25 23:10 Oxygen Delivery Room Air 05/06/24 23:10 Temperature 100.6 F H 05/06/24 23:10 Pulse Rate 98 05/07/24 04:05 Respiratory Rate 16 05/07/24 04:05 Blood Pressure 148/92 H 05/07/24 04:05 Pulse Oximetry 98 05/07/24 04:05 Oxygen Delivery Room Air 05/07/24 03:00 Medical Decision Making MDM Narrative Medical decision making narrative: The patient was evaluated by myself in the emergency department. History is obtained from patient who is an independent historian and physical exam was performed. External medical records were reviewed at this time. IV was established and pertinent tests were ordered. Patient was administered 125 mg of IV Solu-Medrol and a DuoNeb breathing treatment. EKG was obtained which revealed sinus tachycardia rate of 110 beats per minute with ST depression noted in lead 2 and T-wave inversions noted in leads 1, aVL, V5 and V6. EKG was independently interpreted by me and is currently pending official cardiology read. Laboratory results obtained revealing a proBNP of 14,500 otherwise unremarkable. Patient was administered 4 mg of IV Lasix this time. Viral swabs pending. Imaging studies obtained included CXR which was independently interpreted by me revealing cardiomegaly, no consolidation or effusion, which is pending final radiology interpretation. Differential diagnosis considerations include COPD exacerbation, CHF exacerbation, pneumonia, acute viral syndrome, fluid overload. Comorbidities impacting this visit include history of COPD and CHF and medical noncompliance. I have evaluated and discussed social determinants of health with the patient that could potentially impact subsequent diagnosis and treatment plans. On repeat assessment of the patient, reevaluation revealed that the patient is doing well and is in no acute distress. Patient symptoms have improved since he arrived to our emergency department. Repeat vital signs were all reviewed and noted to be stable. Differential diagnosis and treatment plan were discussed with the patient at bedside. Patient agrees with discussion and after shared medical decision making agrees with [admissio. All questions were answered to the patient's satisfaction. Case was discussed with the on-call [employer] INSPECTOR Rogelio @ 0420 who accepted admission to our medical telemetry floor. Vital Signs Vital Signs: Vital Signs Temperature 100.6 F H 05/06/24 23:10 Pulse Rate 113 H 05/06/24 23:10 Respiratory Rate 20 05/06/24 23:10 Blood Pressure 172/104 H 05/06/24 23:10 Pulse Oximetry 97 05/06/24 23:10 Oxygen Delivery Room Air 05/06/24 23:10 Temperature 100.6 F H 05/06/24 23:10 Pulse Rate 98 05/07/24 04:05 Respiratory Rate 16 05/07/24 04:05 Blood Pressure 148/92 H 05/07/24 04:05 Pulse Oximetry 98 05/07/24 04:05 Oxygen Delivery Room Air 05/07/24 03:00 Lab Data 05/07/24 02:51 05/07/24 02:51 Labs: Lab Results 05/07/24 05/07/24 05/07/24 Range/Units 02:51 02:51 03:43 WBC 7.4 (4.5-10.0) K/mm3 RBC 4.83 (4.6-6.20) M/mm3 Hgb 14.7 (14.0-18.0) g/dL Hct 43.3 (42.0-52.0) % MCV 89.6 (80-100) fl MCH 30.4 (26-34) pg MCHC 33.9 (32-36) g/dl RDW 13.9 (11.5-14.5) % Plt Count 258 (150-375) k/mm3 MPV 9.7 (7.4-10.4) fl Immature Gran % (Auto) 0.1 (0-0.5) % Neut % (Auto) 56.3 (45.5-73.1) % Lymph % (Auto) 24.5 (18.3-44.2) % Sherman % (Auto) 9.3 H (2.6-8.5) % Eos % (Auto) 8.7 H (0-4.4) % Baso % (Auto) 1.1 (0.2-1.2) % Lymph # (Auto) 1.80 (0.9-3.2) K/mm3 Sherman # (Auto) 0.7 H (0.1-0.6) K/mm3 Eos # (Auto) 0.6 H (0-0.3) K/mm3 Baso # (Auto) 0.1 (0.0-0.1) K/mm3 Abs Immat Gran (auto) 0.01 (0.00-0.031) K/mm3 Absolute Neuts (auto) 4.1 (1.3-6.7) K/mm3 Absolute Nucleated RBC 0.000 (0.0-0.012) K/mm3 Nucleated RBC % 0.0 (0.0-0.2) % Sodium 135 L (137-145) mmol/L Potassium 4.5 (3.4-5.0) mmol/L Chloride 101 (98-107) mmol/L Carbon Dioxide 23 (22-30) mmol/L Anion Gap 11 (4-12) mmol/L BUN 18 D (9-20) mg/dL Creatinine 1.02 (0.7-1.3) mg/dL Estim Creat Clear Calc 69 ml/min Estimated GFR > 60 (59 - ) Glucose 107 (65-110) mg/dL Calcium 9.3 (8.4-10.2) mg/dL Total Bilirubin 1.0 (0.2-1.3) mg/dL AST 24 (17-59) U/L ALT 19 (6-50) U/L Alkaline Phosphatase 83 (38-126) U/L NT-Pro-B Natriuret Pep 82445 H Cancelled (19.9-100) pg/mL Total Protein 8.0 (6.3-8.2) g/dL Albumin 4.1 (3.5-5.1) g/dL Influenza A (RT-PCR) Negative (Negative) Influenza B (RT-PCR) Negative (Negative) RSV (RT-PCR) Positive A (Negative) SARS-CoV-2 RNA (RT-PCR) Negative (Negative) Discharge Plan Discharge Clinical Impression: CHF exacerbation, COPD exacerbation, Lower extremity edema, Medical non- compliance Patient Disposition: Still a Patient Condition: Improved Patient Language: Maltese Prescriptions: No Action carvedilol [Coreg] 6.25 mg Tablet 6.25 mg PO Q12HR Qty: 60 1RF furosemide 20 mg Tablet 20 mg PO DAILY Qty: 30 1RF Entresto 24-26 mg Tablet 1 tab PO Q12HR Qty: 60 1RF aspirin 81 mg Tablet 81 mg PO DAILY albuterol sulfate 90 mcg/actuation HFA aerosol inhaler 2 puff INHALATION Q4H PRN (Reason: Shortness Of Breath Or Wheezing) Follow-up/Referrals: Emre Andrade MD [Primary Care Provider] - Time of Disposition: 04:16
[2024-05-07] MEDS: ACETAMINOPHEN 325 MG TABLET 650 MG PO (04:16)
[2024-05-07] MEDS: FUROSEMIDE INJ 40 MG/4 ML VIAL IV PUSH (04:16)
[2024-05-07] MEDS: methylPREDNISolone SOD SUCC 125 MG VIAL IV PUSH (04:16)
[2024-05-07 04:24] LABS: Influenza A QL RT-PCR Negative (Negative); Influenza B QL RT-PCR Negative (Negative); RSV RNA, RT-PCR Positive (Negative); SARS-CoV-2 RNA PCR Negative (Negative)
[2024-05-07] MEDS: IPRATROPIUM 0.5 MG/ALBUTEROL SULFATE 2.5 MG AMPUL.NEB 3 ML INHALATION ×2 (05:01→20:12)
--- OUTSIDE RECORDS SUMMARY | 2024-05-07 06:21 | XMS_ITS | CONTINUITY OF CARE DOCUMENT ---
Author Name [email or web address] Address Unknown Organization [facility] Address [address] [place] [address] Phone [phone] Care Team Providers Care Porcelain Technician Name Role Phone Zion Gaspar MD Unavailable [phone] RICO ROBERSON MD Unavailable [phone] PROBLEMS Condition Status Date Provider Notes Cardiology examination active Zion [place] CHF active Zion Gaspar MD Shortness of breath active Zion Gaspar MD COPD active Zion Gaspar MD ENCOUNTERS Date Type Provider Location Encounter Diag nosis - In-person encounter Office Visit Zion Gaspar MD [facility] Cardiology examinationCHFShortness of breathCOPD VITAL SIGNS Date Observation Value Provider Body Mass Index (Ratio) 29.56 kg/m2 Fabian am Compa blood pressure, diastolic 74 mm[Hg] Rita nkLogic blood pressure, systolic 112 mm[Hg] Roseann kLogic blood pressure, cuff size regular Ja rret blood pressure, diastolic 74 mm[Hg] Ja rret blood pressure, systolic 112 mm[Hg] Jar ret pulse rate 73 /min Warren y height E&M 72 [in_i] Warren y oxygen saturation, oximetry 96 % Warren respiratory rate E&M 16 /min weight E&M 218 [lb_av] y ALLERGIES Allergy Name Onset Date Reaction Criticality Status SULFA Low Criticality active HISTORY OF MEDICATION USE Medication Status Instructions Dates Provider Indications Com ments albuterol sulfate 90 mcg/actuation HFA aerosol inhaler active as needed Symbicort 160-4.5 mcg/actuation HFA aerosol inhaler active INHALE ONE PUFF BY MOUTH TWICE A DAY Entresto 24-26 mg tablet active TAKE 1 TABLET BY MOUTH TWICE DAILY furosemide 20 mg tablet active Take 1 tablet by mouth once a day carvedilol 6.25 mg tablet active Take 1 tablet by mouth twice a day SOCIAL HISTORY Date Observation Value Provider smoking status Never smoker INSURANCE PROVIDERS Payer name Policy type / Coverage type [place] [employer] [place] Medicare [id number] [facility] Medicaid 2 [id number] ADVANCE DIRECTIVES Name Date DISCUSSED - NO DECISION MADE TREATMENT PLAN Date Name Performer Cardiology Riccardo Chatman Cardiology: H is updated medication list for this problem includes: Carvedilol 6.25 Mg Tablet (Carvedilol) ..... Take 1 tablet by mouth twice a day Furosemide 20 Mg Tablet (Furosemide) ..... Take 1 tablet by mouth once a day Riccardo Chatman Cardiology:Pt had re cent admission to [facility] with new onset CHF. Per pt, he had echo that showed EF 30%, he was treated with lasix and improved. In view of presentation, and the findings, will proceed to right and left heart cath and renal angiography H is updated medication list for this problem includes: Carvedilol 6.25 Mg Tablet (Carvedilol) ..... Take 1 tablet by mouth twice a day Furosemide 20 Mg Tablet (Furosemide) ..... Take 1 tablet by mouth once a day Riccardo Chatman Date Name PROTHROMBIN TIME WIT H INR CBC (INCLUDES DIFF/P LT) CRP, high sensitivit y LIPID PANEL Lipoprotein (a) PROBNP, N TERMINAL Microalb/Creatinine Urine, Random HEMOGLOBIN A1c BASIC METABOLIC PANE L W/EGFR HISTORY OF PROCEDURES Procedure Date Procedure Name Provider Procedure Notes S tatus EKG Zion Gaspar MD completed
--- OUTSIDE RECORDS SUMMARY | 2024-05-07 06:21 | XMS_ITS | Clinical Summary ---
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 visualized portions of the orbits are normal. The visualized portions of the mastoids are normal. Left maxillary mucous retention cyst. No fractures are identified. Scattered ill-defined hypodensities in the periventricular and subcortical white matter are nonspecific, likely on the basis of chronic small vessel ischemic change. CERVICAL SPINE: The alignment of the cervical spine is normal. There is no acute fracture. Vertebral bodies are normal in height without compression fractures. Intervertebral disk heights are normal. The craniocervical junction is normal. Limited views of the skull base appear normal. The sphenoid sinus is well aerated. No soft tissue abnormality is identified. There is multilevel degenerative disc disease greatest and moderate at C3-C4, with a large anterior projecting disc osteophyte. No high-grade spinal canal or neural foraminal stenosis. THORACIC SPINE: There are 12 rib-bearing thoracic vertebra. The alignment of the thoracic spine is normal. There is no acute fracture. Vertebral bodies are normal in height without compression fractures. Intervertebral disk heights are normal. There is no soft tissue abnormality. The thoracic aorta is normal. Mild multilevel degenerative disc disease throughout the thoracic spine, greatest at T7-T8 and T8-T9. There is no facet hypertrophy. There is no neuroforaminal stenosis. There is no spinal canal stenosis. Old granulomatous disease with mild bibasilar atelectasis. IMPRESSION: 1. Left parietal and occipital scalp hematoma. No acute intracranial process. 2. No evidence of acute fracture in the cervical or thoracic spine. Dictated by: Curry Lerma MD The radiology attending physician has personally reviewed this study, and had reviewed and/or edited this written report and agrees with it. Electronically signed by: Selena Gómez M.D. us Rod Lopez MD IMG CT PROCEDURES Final Re sult * PSA screen (12/12/2023 10:00 AM CDT) PSA-Total 0.45 <=5.40 ng/mL Comment: Interpretive Data ?AGE ? SEX ?REFERENCE INTERVAL 0 minutes-150 years ?Female ?None 0 minutes-49 years ? Male ?None ? 50-59 years ? Male ?0-3.90 ? 60-69 years ? Male ?0-5.40 ? 70-79 years ? Male ?0-6.20 ? 80-150 years ?Male ?0-6.20 The Stacey PSA Total assay procedure was used. Results from different manufacturers or methods may not be comparable. Serial testing should be performed using the same method. Current interpretive data last revised 21. Testing performed by: [facility], [address] [place] [address]., [id number] Blood 12/12/2023 10:0 0 AM CDT 12/12/2023 12:16 PM CDT us Lisa JACINTO LAB BLOOD ORDERABLES Fin al Result [facility] [address] [facility] [employer] [place] [address] from Last 3 Months or Most Recently Relevant to Health Maintenance Insurance [facility] MEDICARE ID[place] Advance Directives For more information, please contact: [phone] * Full Code (Latest Code Status on File) Date Activated Date Inactivated Comments 11/03/2023 4:46 PM 11/06/2023 6:41 PM * Full Code Date Activated Date Inactivated Comments 07/18/2023 11:06 AM 07/19/2023 7:36 PM Care Teams Belt Tender Relationship Specialty Start Date End Date Lisa Kern PA [address] [facility] [address] [place] [address] PCP - General Family Medicine 12/12/23 [place] [address] [place] [address] Consulting Physician Cardiovascular Disease 07/19/23
--- OUTSIDE RECORDS SUMMARY | 2024-05-07 06:21 | XMS_ITS | Encounter Summary ---
Author Organization [facility] Healthcare Address [address] [place] [address] Care Team Providers Care Marketing Finance Specialist Name Role Phone Emre Andrade MD Primary Care Provider [phone] Zion Gaspar MD Unavailable Lisa Kern Primary Care Provider + Encounter Details Date Type Department Care Team (Late st Contact Info) Description 07/16/2023 Telephone [facility] Social Work [address] [place] [address] Melly Oleary MSW Social History Tobacco Use Types Packs/Day Years Used Date Smoking Tobacco: Never Passive Smoke Exposure: Past Smokeless Tobacco: Never AUDIT-C Answer Date Recorded Q1: How often do you have a drink containing alcohol? Never 07/18/2023 Q2: How many drinks containi ng alcohol do you have on a typical day when you are drinking? Patient does not drink Q3: How often do you have si x or more drinks on one occasion? Never 07/18/2023 Personal Safety Answer Date Recorded Have you ever been in or are you currently in a harmful physical or emotional relationship or is someone making you feel afraid or unsafe? 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 11/16/2023 11/24/2023 02/14/2024 3:05 AM C DT documented as of this encounter Care Teams Marketing Finance Specialist Relationship Specialty Start Date End Date Emre Andrade MD PCP - General Emergency Medicine 10/19/21 12/11/23 Lisa Kern PA [address] [facility] [address] [place] [address] PCP - General Family Medicine 12/12/23 [place] [id number] [address] Consulting Physician Cardiovascular Disease 07/19/23 documented as of this encounter
--- OUTSIDE RECORDS SUMMARY | 2024-05-07 06:21 | XMS_ITS | Referral Summary ---
Author Organization [facility] Address [address] [place] [address] Care Team Providers Care Car Shunter Name Role Phone Zion Gaspar MD Unavailable Lisa Kern Primary Care Provider + Encounters Date Type Department Care Team Description 02/13/2024 7:36 AM CDT - 02/13/2024 10:47 AM CDT Emergency [facility] Emergency Department [address] [place] [address] Rod Lopez MD Scalp laceration, initial encounter (Primary Dx); Chronic obstructive pulmonary disease, unspecified COPD type (HCC); Mild persistent asthma without complication; Primary hypertension; Grade I diastolic dysfunction; Closed head injury, initial encounter; Cervical strain, acute, initial encounter Discharge Disposition: Discharge to home or self care from Last 3 Months Allergies Active Allergy Reactions Criticality Noted Date [...] type (HCC),Mild persistent asthma without complication Inhale 1 puff [...] to cardiology 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 Male hypogonadism 01/05/2020 Vitamin D deficiency 06/28/2019 [...] (shortness of breath) 07/14/2023 Heart failure, unspecified (CMS/HCC) 07/14/2023 12/12/2023 History of severe acute resp iratory syndrome coronavirus 2 (SARS-CoV-2) disease 07/20/202012/11 Elevated blood-pressure read ing without diagnosis of hypertension 06/14/2019 12/12/2023 Dyspnea and respiratory abnormalities 12/12/2023 Immunizations Name Administration Dates Next Due Influenza, Unspecified 01/29/2023(Deferr ed: Patient decision),01/29/2022(Deferred: Patient decision),03/14/2003,12/13/1998 Pneumococcal Polysaccharide PPV23 03/07/2009, Tdap 12/20/2023,03/07/2013 Social History Tobacco Use Types Packs/Day Years Used Date Smoking Tobacco: Never Passive Smoke Exposure: Past Smokeless Tobacco: Never Tobacco Cessation:Counseling Given: Not Answered [facility] [employer] Answer Date Recorded In the past 12 months has [employer], gas, oil, or water company threatened to shut off services in your [...] often do you attend chur ch or nondenominational services? Never 12/12/2023 Do you belong to any clubs o r organizations such as sikh groups, unions, fraternal or athletic groups, or [...] any time in the past 12 m [facility], were you homeless or living in a fci (including now)? Yes 12/12/2023 Personal Safety Answer Date Recorded Have you ever been in or are you currently in a harmful physical or emotional relationship or is someone making you feel afraid or unsafe? 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 Responsible green party for transporting specimen(s) to lab determined: n/a ?? Rod Lopez MD IN CLINIC/BEDSIDE ORDERABL ES [...] atherosclerotic. Electronically signed by: Darwin Barbosa M.D. us Rod Lopez MD IMG XR PROCEDURES Final [...] by: Selena Gómez M.D. Rod Lopez MD IM CT PROCEDURES Final Re sult * PSA [...] data last revised 21. Testing performed by: [facility], [address] [place] [address]., [id number] Blood 12/12/2023 10:0 0 AM CDT 12/12/2023 12:16 PM CDT Lisa JACINTO LAB BLOOD ORDERABLES Fin al Result Performing Organization Address City/State/[facility] Co de Phone Number [facility] [address] [facility] Department [place] [address] from Last 3 Months or Most Recently Relevant to Health Maintenance Insurance [facility] [facility] MEDICARE MEDICARE [facility] Advance Directives For more information, please contact: [phone] * Full Code (Latest Code Status on File) Date Activated Date Inactivated Comments 11/03/2023 4:46 PM 11/06/2023 6:41 PM * Full Code Date Activated Date Inactivated Comments 07/18/2023 11:06 AM 07/19/2023 7:36 PM Care Teams Car Shunter Relationship Specialty Start Date End Date Lisa Kern PA [address] [facility] [address] [place] [address] PCP - General Family Medicine 12/12/23 [place] [address] [address] Consulting Physician Cardiovascular Disease 07/19/23
--- OUTSIDE RECORDS SUMMARY | 2024-05-07 06:21 | XMS_ITS | Clinical Summary ---
Author Organization [facility] Address [address] [place] [address]. [place], [place] [address] [place] [address] Care Team Providers Care Snow Removal/Plowing Name Role Phone Unavailable Primary Care Provider Unavailabl e Social History Tobacco Use Types Packs/Day Years Used Date Smoking Tobacco: Never Assessed Sex and Gender Information Value Date Recorded Sex Assigned at Not on file Legal Sex Male 8:13 PM CDT Gender Identity Not on file Sexual Orientation Not on file Plan of Treatment Health Maintenance Due Date Last Done Comments Colorectal Cancer Screening Colonoscopy (10 Years) 1957 Hepatitis C 1975 DTaP, Tdap and Td Vaccines ( 1 - Tdap) 1976 Zoster Vaccines (1 of 2) 2007 Pneumococcal Vaccine: 65+ Ye ars (1 of 1 - PCV) 2022 COVID-19 Vaccine ( - 2023-2 5 season) 2023 Influenza Adult (#1) 2024 RSV Immunization or 60+ Years (1 - 1-dose 75+ series) 2032 Meningococcal Vaccine Aged Out No patience hanny eligible based on patient's age to complete this topic RSV Immunizations Under 20 Months Aged Out No longer eligible based on patient's age to complete this topic
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
--- NOTE | 2024-05-07 14:43 | P.CONCA_ITS ---
Assessment and Plan Assessment and plan (1) Nonischemic cardiomyopathy: Code(s): I42.8 - Other cardiomyopathies Status: Acute Assessment and Plan: Nonischemic cardiomyopathy, EF 25-30%. * Guideline directed medical therapy with Entresto, Coreg, will add spironolactone. * Discussed patient's ability to afford Entresto and Jardiance if we add SGOT 2 inhibitor. Patient states that he is able to afford his Entresto at this point. If not, alternative would be valsartan or lisinopril * Outpatient referral for ICD * Will arrange for follow-up in our office in the next 2-4 weeks (2) Acute on chronic systolic heart failure: Code(s): I50.23 - Acute on chronic systolic (congestive) heart failure Status: Acute Assessment and Plan: Acute on chronic systolic heart failure secondary to dietary noncompliance and medication non adherence. * Switch to p.o. furosemide 40 mg b.i.d. * Strict intake and output * Daily weights * CHF counseling (3) Essential hypertension: Code(s): I10 - Essential (primary) hypertension Status: Acute Assessment and Plan: Blood pressure is at goal. (4) Respiratory syncytial virus (RSV) infection: Code(s): B33.8 - Other specified viral diseases Status: Acute Assessment and Plan: Supportive care. Management per hospitalist service. History of Present Illness History of Present Illness Consult date/time: 05/07/24 14:43 Requesting physician: Lyla Carvalho MD Consult reason: congestive heart failure Reason For Visit: sob, COPD/CHF exacerbation Narrative: Jeevan Castellanos is a 68-year-old male with nonischemic cardiomyopathy who presents to the hospital with a chief complaint of shortness of breath. This is a patient who was initially diagnosed with cardiomyopathy in June of 2023. He underwent a left heart catheterization at an outside hospital that did not show any obstructive coronary artery disease. He reports that he has been struggling with homelessness and as result has not been able to follow a low-sodium diet and had problems being consistent with taking his medications. He has had shortness of breath for quite some time but it has become progressively worse. He also endorses lower extremity edema. He has received IV diuretic and his breathing has improved significantly. He denies any chest pain, palpitations, syncope, or presyncope. Review of Systems 2 Review of Systems: All systems reviewed & are unremarkable except as noted in HPI and below [facility] Past Medical History Medical History Severe chronic obstructive pulmonary disease With good response to bronchodilator noted on PFTs 10/2020 Toe fracture, left multiple toes Bronchitis Nose fracture Surgical History Surgical History History of tonsillectomy Family History Family History Mother , in her 80s Diabetes mellitus Lung cancer Father , at 83 years old Acute myocardial infarction Biventricular ICD (implantable cardioverter-defibrillator) in place Sibling Lung cancer Social History Social History Social History: Patient was 3 times. His last between 3 and 5 years ago cancer. He then had a girlfriend who also developed cancer and in August of 2022. 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 He briefly smoked when he was younger. He denies any significant alcohol use. He denies any illicit substance use. Code status: DNR/DNI (per patient request) The patient reports he does not have a surrogate decision maker and has no family members left. He does not have any friends he feels close enough to ask to make that type of decision. Years smoked: 5 Smoking status: Never smoker Alcohol intake: never Substance use: former Substance use type: marijuana Do You Feel Safe in your Home?: Yes Lack of Transportation: YES Lack of Food: Often True Current Housing: I Do Not Have Housing Concerned About Future Housing: YES Difficulty Paying Gas/Electric Bills: No Difficulty Paying for Meds: YES Currently Unemployed: No Education: Decline to Answer Difficulty w/ Childcare or Family Care: No Gender identity (if verbalized by the patient): Male Spiritual care concerns: No Meds Home Medications and Allergies Home Medications ?Medication ?Instructions ?Recorded ?Confirmed ?Type carvedilol 6.25 mg tablet (Coreg) 6.25 mg PO Q12HR #60 tabs 07/01/23 05/07/24 Rx furosemide 20 mg tablet 20 mg PO DAILY #30 tabs 07/01/23 05/07/24 Rx sacubitril 24 mg-valsartan 26 mg 1 tab PO Q12HR #60 tabs 07/01/23 05/07/24 Rx tablet (Entresto) albuterol sulfate 90 mcg/actuation 2 puff inhalation Q4H PRN 03/06/24 05/07/24 History aerosol inhaler Shortness Of Breath Or Wheezing aspirin 81 mg tablet 81 mg PO DAILY 03/06/24 05/07/24 History Allergies Allergy/AdvReac Type Severity Reaction Status Date / Time Sulfa (Sulfonamide Allergy Mild Itching Verified 05/06/24 23:17 Antibiotics) Vital Signs Vital Signs - 24 hr 05/06/24 23:10 05/07/24 03:00 05/07/24 03:01 Temperature 38.1 C H Pulse Rate 113 H 109 H Respiratory Rate 20 18 Blood Pressure 172/104 H 144/110 H Pulse Oximetry 97 98 98 Oxygen Delivery Room Air Room Air 05/07/24 04:05 05/07/24 05:02 05/07/24 05:11 Temperature Pulse Rate 98 98 101 H Respiratory Rate 16 20 20 Blood Pressure 148/92 H Pulse Oximetry 98 Oxygen Delivery 05/07/24 06:39 05/07/24 08:32 05/07/24 11:27 Temperature Pulse Rate 70 71 66 Respiratory Rate 15 16 17 Blood Pressure 126/68 111/93 H 116/67 Pulse Oximetry 97 98 97 Oxygen Delivery Exam 2 Const: General: comfortable, no acute distress, alert and awake O rientation/consciousness: patient oriented x3 HENMT: Head: normal to inspection Eyes: General: appearance normal, both eyes and all related structures P upils: Equal, round and reactive pupils present Neck: Neck: normal visual inspection, supple and no JVD Carotids: normal carotid upstroke Resp: Effort & Inspection: normal respiratory effort Auscultation: not clear to auscultation bilaterally, rales bilateral in the lower lung story and wheezes scattered wheezes Cardio: Rate: regular rate Rhythm: regular rhythm Heart sounds: S1 normal heart sound present, S2 normal heart sound present and no murmurs GI: Auscultation: normal bowel sounds Skin: General skin exam: normal color Neuro: General: patient oriented x3 Cranial nerves: Yes Equal, round and reactive pupils present Extrem: General: normal to inspection Other: Mild bilateral pretibial and pedal edema. Psych: Appearance: grossly normal Mental Status: mental status grossly normal Results Labs and Meds 05/07/24 02:51 05/07/24 02:51 Lab results: Cardiac Enzymes 05/07/24 Range/Units 02:51 AST 24 (17-59) U/L CBC 05/07/24 Range/Units 02:51 WBC 7.4 (4.5-10.0) K/mm3 RBC 4.83 (4.6-6.20) M/mm3 Hgb 14.7 (14.0-18.0) g/dL Hct 43.3 (42.0-52.0) % Plt Count 258 (150-375) k/mm3 Lymph # (Auto) 1.80 (0.9-3.2) K/mm3 [place] # (Auto) 0.7 H (0.1-0.6) K/mm3 Eos # (Auto) 0.6 H (0-0.3) K/mm3 Baso # (Auto) 0.1 (0.0-0.1) K/mm3 Comprehensive Metabolic Panel 05/07/24 Range/Units 02:51 Sodium 135 L (137-145) mmol/L Potassium 4.5 (3.4-5.0) mmol/L Chloride 101 (98-107) mmol/L Carbon Dioxide 23 (22-30) mmol/L BUN 18 D (9-20) mg/dL Creatinine 1.02 (0.7-1.3) mg/dL Glucose 107 (65-110) mg/dL Calcium 9.3 (8.4-10.2) mg/dL AST 24 (17-59) U/L ALT 19 (6-50) U/L Alkaline Phosphatase 83 (38-126) U/L Total Protein 8.0 (6.3-8.2) g/dL Albumin 4.1 (3.5-5.1) g/dL
[2024-05-07] MEDS: FUROSEMIDE 40 MG TABLET PO (17:17)
[2024-05-07] MEDS: carvediloL 6.25 MG TABLET PO (20:32)
[2024-05-07] MEDS: SACUBITRIL/VALSARTAN 24-26 MG TABLET 1 TAB PO (20:32)
[2024-05-08] VITALS (19 sets, daily range): BP systolic 104–112; BP diastolic 62–88; PULSE 68–95; RESP 16–20; TEMP 36.5–36.9; O2SAT 95–98
--- NOTE | 2024-05-08 | ECHOL_ITS ---
Patient Info Name: Jeevan Castellanos Age: 68 years : 1955 Gender: Male Ht: 72 in Wt: 215 lbs BSA: 2.25 m2 HR: 68 bpm BP: 108 / 62 mmHg Technical Quality: Good Exam Date: 05/08/2024 8:51 AM Exam Location: Echo Lab Exam Room: [facility] Patient Status: Inpatient Admit Date: 05/07/2024 Staff Ordering Physician: Lyla Carvaloh MD Candy Dipper: Vanna Berrios RDCS Attending Provider: Aura Muhammad MD Referring Physician: Maia ELLIOTT; Exam Type: CA echo limited Study Info Indications - CHF Limited two-dimensional transthoracic echocardiogram is performed. Summary 1. Left ventricular systolic function is normal, estimated at 55-60%. 2. There is moderately increased left ventricular wall thickness. Left Ventricle Left ventricular chamber dimension is normal. Left ventricular systolic function is normal, estimated at 55-60%. There is moderately increased left ventricular wall thickness. Left ventricular septal wall motion is normal. Right Ventricle Right ventricular chamber dimension is normal. Right ventricular systolic function is normal. Left Atria Left atrial chamber dimension is mildly enlarged. Right Atria Right atrial chamber dimension is normal. Aortic Valve The aortic valve is trileaflet. There is mild aortic valve calcification. Pulmonic Valve The pulmonic valve is not well visualized. Mitral Valve The mitral valve has normal leaflets. There is mild mitral valve calcification. Tricuspid Valve The tricuspid valve leaflets are normal. There is trace tricuspid valve regurgitation. Pericardium/Pleural The pericardium appears normal. There is no pericardial effusion. Aorta The aortic root size at the sinus of Valsalva is normal. The prox ascending aorta size is normal. Tricuspid Valve Name Value Normal TV Regurgitation Doppler TR Peak Velocity 432 cm/s TR Peak Gradient 75 mmHg Report Signatures
[2024-05-08] MEDS: IPRATROPIUM 0.5 MG/ALBUTEROL SULFATE 2.5 MG AMPUL.NEB 3 ML INHALATION ×4 (01:52→21:40)
--- NOTE | 2024-05-08 06:50 | PM.IMPN ---
Progress Note: A&P Assessment and Plan (1) Essential hypertension: Code(s): I10 - Essential (primary) hypertension Status: Acute (2) Systolic heart failure: Code(s): I50.20 - Unspecified systolic (congestive) heart failure Status: Acute (3) Acute exacerbation of CHF (congestive heart failure): Code(s): I50.9 - Heart failure, unspecified Status: Acute (4) CHF exacerbation: Code(s): I50.9 - Heart failure, unspecified Status: Acute (5) Nonischemic cardiomyopathy: Code(s): I42.8 - Other cardiomyopathies Status: Acute (6) Acute on chronic systolic heart failure: Code(s): I50.23 - Acute on chronic systolic (congestive) heart failure Status: Acute (7) Respiratory syncytial virus (RSV) infection: Code(s): B33.8 - Other specified viral diseases Status: Acute (8) COPD exacerbation: Code(s): J44.1 - Chronic obstructive pulmonary disease with (acute) exacerbation Status: Acute Plan Jeevan Castellanos is a 68 yo male with pmh HFrEF (25-30% 03/07), nonischemic cardiomyopathy, and COPD presenting with lower ext. edema with medication noncompliance with diuretics. Acute on chronic heart failure: 900ML down on I/O, currently on ra with sats of 95%. Appreciate cardiology recs, initiating MRA today. Echo is pending read, would like to see results to determine any therapy modifications prior to discharge. - Aldactone 25mg start today. Lasix at 40mg bid orally. Creatinine uptrending yesterday. K 4.4, will repeat labs tomorrow am and adjust dosage pending on potassium trend. Will need outpatient labs within a week of discharge to monitor therapy - this may be difficult with his social situation. - Guideline therapy with coreg currently at 6.25mg bid to continue, Entresto to continue. - Consider SGLT if obtainable, although social situation may hamper. - Will follow i/o and physical exam, discharge once stable on regimen. - Outpatient cardiology referral for ICD. HTN: Mild soft bp, close monitoring, may need to back down on diuretics. COPD exacerbation 2/2 RSV: Supportive care, currently on room air. Feels improved. Disposition: Expect 24-48 hours of further care. Currently living in vehicle but housing authority is likely to have this problem addressed soon per patient. Care coordination has investigated benefits, has medicaid coverage and meds will likely be covered so additional guideline therapies for HF should be ok to start as an outpatient. Care coordination has not seen patient yet today but will be reinforcing this data later today. Time Spent With Patient Time with patient: 25 - 35 minutes Subjective Date/time seen: 05/08/24 06:50 Interval history: Jeevan states breathing is improving but still feels a little rattly. Review of Systems Review of Systems: All systems reviewed & are unremarkable except as noted in HPI and below Exam Narrative: GENERAL APPEARANCE: Appears to be in no acute distress. HEAD: normocephalic atraumatic EYES: PERRL, EOMI. Vision grossly intact. ENT: Hearing grossly intact, no nasal discharge NECK: Neck supple, trachea midline. CARDIAC: Normal S1/S2. Rhythm is regular. No murmurs, rubs, or gallops. No cyanosis or pallor. Extremities are warm and well perfused. LUNGS: Coarse rales diffusely in the right sided story, left diminished with mild wheezes. Respirations even and unlabored. ABDOMEN: BS positive x 4 quadrants. Soft, nondistended, nontender. No guarding or rebound. MSK: No joint tenderness/swelling, fair strength in all extremities. PERIPHERAL VASCULAR: Peripheral pulses palpable. Normal perfusion, cap refill <2 seconds. Trace pedal edema. NEURO: Follows commands. No focal deficits. SKIN: [place] without lesions or eruptions. PSYCH: Stable, no paranoia or delusional thinking. Objective Data Vital Signs Vital Signs: Vital Signs - 24 hr 05/07/24 08:32 05/07/24 11:27 05/07/24 15:44 Temperature 97.5 F L Pulse Rate 71 66 75 Respiratory Rate 16 17 16 Blood Pressure 111/93 H 116/67 110/74 Pulse Oximetry 98 97 94 Oxygen Delivery 05/07/24 18:34 05/07/24 20:00 05/07/24 20:14 Temperature Pulse Rate 78 100 Respiratory Rate 22 H 22 H Blood Pressure Pulse Oximetry 94 Oxygen Delivery Room Air Room Air 05/07/24 20:24 05/07/24 20:32 05/07/24 21:20 Temperature 98.7 F Pulse Rate 101 H 78 99 Respiratory Rate 20 16 Blood Pressure 148/90 H Pulse Oximetry 97 Oxygen Delivery 05/08/24 00:04 05/08/24 01:53 05/08/24 02:05 Temperature Pulse Rate 71 76 79 Respiratory Rate 18 18 Blood Pressure Pulse Oximetry Oxygen Delivery 05/08/24 04:00 05/08/24 05:50 Temperature 97.7 F Pulse Rate 76 73 Respiratory Rate 18 Blood Pressure 108/62 Pulse Oximetry 95 Oxygen Delivery Intake/Output Intake/Output: Intake & Output 05/05/24 05/06/24 05/07/24 05/08/24 23:59 23:59 23:59 23:59 Intake Total 240 400 Output Total 550 1000 Balance -310 -600 Meds/Results Medications: Active Medications Generic Name Dose Route Start Last Admin Trade Name Freq PRN Reason Stop Dose Admin Albuterol/Ipratropium 3 ml 05/07/24 14:00 05/08/24 01:52 Ipratropium 0.5 Mg/Albuterol Sulfate 2.5 Mg Ampul.Neb 3 Ml INHALATION 3 ml Q6HRT [facility] Administration Aspirin 81 mg 05/08/24 08:00 Aspirin 81 Mg Chewable Tablet PO DAILY@0800 [facility] Carvedilol 6.25 mg 05/07/24 21:00 05/07/24 20:32 Carvedilol 6.25 Mg Tablet PO 6.25 mg Q12HR [facility] Administration Enoxaparin Sodium 40 mg 05/08/24 09:00 Enoxaparin 40 Mg/0.4 Ml Syringe SUB-Q DAILY [facility] Furosemide 40 mg 05/07/24 17:00 05/07/24 17:17 Furosemide 40 Mg Tablet PO 40 mg BID [facility] Administration Perflutren Lipid Microsphere 0 ml 05/07/24 13:51 Perflutren Lipid Microspheres 1.5 Ml Vial Diluted To 10 Ml Total Volume IV PUSH 05/10/24 13:51 ONCE PRN adequate visualization Protocol Prednisone 20 mg/ Prednisone 30 mg 05/08/24 08:00 10 mg PO DAILY@0800 [facility] Sacubitril/Valsartan 1 tab 05/07/24 21:00 05/07/24 20:32 Sacubitril/Valsartan 24-26 Mg Tablet PO 1 tab Q12HR [facility] Administration Spironolactone 25 mg 05/08/24 09:00 Spironolactone 25 Mg Tablet PO QAM [facility] Radiology Results: ITS Impressions Chest X-Ray 05/07/24 05:40 Impression: Questionable minimal basilar pulmonary edema, or possibly minimal right basilar pneumonia. Correlate clinically. Stable cardiomegaly. Quality VTE Prophylaxis VTE prophylaxis: pharmacologic ordered Hospitalist [facility] Advance Care Plan I have confirmed that the patient's Advanced Care Plan is present, code status is documented, or surrogate decision maker is listed in patient medical record.: Yes Medication Reconciliation I have utilized all available resources to obtain, update and review the patients current medications (includes all prescriptions, OTC, herbals, cannabis, and nutritional supplements).: Yes
[2024-05-08 07:46] LABS: Anion Gap 9 mmol/L (4-12); Blood Urea Nitrogen 31 mg/dL (9-20); Calcium 9.5 mg/dL (8.4-10.2); Carbon Dioxide 27 mmol/L (22-30); Chloride 101 mmol/L (98-107); Estimated CRCL calculation 68 ml/min; Estimated Glomerular Filt Rate > 60; Glucose 108 mg/dL (65-110); Potassium 4.4 mmol/L (3.4-5.0); Sodium 137 mmol/L (137-145)
--- NOTE | 2024-05-08 08:28 | P.PNCA_ITS ---
Progress Note: A&P Assessment and Plan (1) Nonischemic cardiomyopathy: Code(s): I42.8 - Other cardiomyopathies Status: Acute (2) Acute on chronic systolic heart failure: Code(s): I50.23 - Acute on chronic systolic (congestive) heart failure Status: Acute (3) Elevated brain natriuretic peptide (BNP) level: Code(s): R79.89 - Other specified abnormal findings of blood chemistry Status: Acute (4) Essential hypertension: Code(s): I10 - Essential (primary) hypertension Status: Acute (5) Medical non-compliance: Code(s): Z91.199 - Patient's noncompliance with other medical treatment and regimen due to unspecified reason Status: Acute Plan Assessment: Acute on chronic systolic heart failure; Nonischemic cardiomyopathy with LVEF 25-30%; cardiac catheterization at outside hospital in 2023 without any obstructive CAD Noncompliance with diet and medication due to homelessness Hypertension RSV infection-supportive care Plan: Guideline directed medical therapy for an systolic heart failure with Entresto, Coreg, spironolactone. Add SGLT2 inhibitor as tolerated EP consult as outpatient for ICD evaluation in 2-4 weeks post discharge Continue Lasix 40 mg b.i.d. IV. He appears euvolemic today and may transition to Lasix 40 mg p.o. b.i.d. tomorrow Check daily weights and strict in's and out's Follow-up with cardiology in 2-4 weeks post discharge Check and replace electrolytes as needed keeping potassium greater than 4 and magnesium greater than 2 Management noncardiac medical problems per primary team Subjective Date/time seen: 05/08/24 08:28 Interval history: Reason for encounter: Acute on chronic systolic heart failure HPI: Jeevan Castellanos is a 68-year-old male with nonischemic cardiomyopathy who presents to the hospital with a chief complaint of shortness of breath. This is a patient who was initially diagnosed with cardiomyopathy in June of 2023. He underwent a left heart catheterization at an outside hospital that did not show any obstructive coronary artery disease. He reports that he has been struggling with homelessness and as result has not been able to follow a low-sodium diet and had problems being consistent with taking his medications. He has had shortness of breath for quite some time but it has become progressively worse. He also endorses lower extremity edema. He has received IV diuretic and his breathing has improved significantly. He denies any chest pain, palpitations, syncope, or presyncope. Interval history: No chest pain, shortness of breath, dizziness, lighthead edness, nausea, abdominal pain. Telemetry shows sinus rhythm. Review of Systems Review of Systems: Review of systems was performed and negative other than those mentioned in HPI Exam Narrative: Const: General: comfortab le, no acute distr ess, alert and daina ke Orientation/co nsciousness: patie nt oriented x3 HENMT: Head: normal to in spection Eyes: General: appearanc e normal, both eye s and all related structures Pupils : Equal, round and reactive pupils p resent Neck: Neck: normal visua l inspection, supp le and no JVD Car otids: normal leal tid upstroke Resp: Effort & Inspectio n: normal respirat ory effort Auscul tation: not clear to auscultation bi laterally, no rale s or rhonchi Cardio: Rate: regular rate Rhythm: regular rhythm Heart soun ds: S1 normal hear t sound present, S 2 normal heart bonnie nd present and no murmurs GI: Auscultation: norm al bowel sounds Skin: General skin exam: normal color Neuro: General: patient o riented x3 Crania l nerves: Yes Equa l, round and react shimon pupils present Extrem: General: normal to inspection Other : Mild bilateral pretibial and ped al edema. Psych: Appearance: grossl y normal Mental S tatus: mental stat us grossly normal Objective Data Vital Signs Vital Signs: Vital Signs - 24 hr 05/07/24 08:32 05/07/24 11:27 05/07/24 15:44 Temperature 36.4 C L Pulse Rate 71 66 75 Respiratory Rate 16 17 16 Blood Pressure 111/93 H 116/67 110/74 Pulse Oximetry 98 97 94 Oxygen Delivery Fraction of Inspired Oxygen 05/07/24 18:34 05/07/24 20:00 05/07/24 20:14 Temperature Pulse Rate 78 100 Respiratory Rate 22 H 22 H Blood Pressure Pulse Oximetry 94 Oxygen Delivery Room Air Room Air Fraction of Inspired Oxygen 05/07/24 20:24 05/07/24 20:32 05/07/24 21:20 Temperature 37.1 C Pulse Rate 101 H 78 99 Respiratory Rate 20 16 Blood Pressure 148/90 H Pulse Oximetry 97 Oxygen Delivery Fraction of Inspired Oxygen 05/08/24 00:04 05/08/24 01:53 05/08/24 02:05 Temperature Pulse Rate 71 76 79 Respiratory Rate 18 18 Blood Pressure Pulse Oximetry Oxygen Delivery Fraction of Inspired Oxygen 05/08/24 04:00 05/08/24 05:50 05/08/24 07:58 Temperature 36.5 C Pulse Rate 76 73 Respiratory Rate 18 Blood Pressure 108/62 Pulse Oximetry 95 96 Oxygen Delivery Room Air Fraction of Inspired Oxygen 21 05/08/24 07:58 05/08/24 08:09 Temperature Pulse Rate 88 95 Respiratory Rate 20 20 Blood Pressure Pulse Oximetry Oxygen Delivery Fraction of Inspired Oxygen Intake/Output Intake/Output: Intake & Output 05/05/24 05/06/24 05/07/24 05/08/24 23:59 23:59 23:59 23:59 Intake Total 240 400 Output Total 550 1000 Balance -310 -600 Meds/Results Medications: Active Medications Generic Name Dose Route Start Last Admin Trade Name Freq PRN Reason Stop Dose Admin Albuterol/Ipratropium 3 ml 05/07/24 14:00 05/08/24 07:58 Ipratropium 0.5 Mg/Albuterol Sulfate 2.5 Mg Ampul.Neb 3 Ml INHALATION 3 ml Q6HRT [facility] Administration Aspirin 81 mg 05/08/24 08:00 Aspirin 81 Mg Chewable Tablet PO DAILY@0800 [facility] Carvedilol 6.25 mg 05/07/24 21:00 05/07/24 20:32 Carvedilol 6.25 Mg Tablet PO 6.25 mg Q12HR [facility] Administration Enoxaparin Sodium 40 mg 05/08/24 09:00 Enoxaparin 40 Mg/0.4 Ml Syringe SUB-Q DAILY [facility] Furosemide 40 mg 05/07/24 17:00 05/07/24 17:17 Furosemide 40 Mg Tablet PO 40 mg BID [facility] Administration Perflutren Lipid Microsphere 0 ml 05/07/24 13:51 Perflutren Lipid Microspheres 1.5 Ml Vial Diluted To 10 Ml Total Volume IV PUSH 05/10/24 13:51 ONCE PRN adequate visualization Protocol Prednisone 20 mg/ Prednisone 30 mg 05/08/24 08:00 10 mg PO DAILY@0800 [facility] Sacubitril/Valsartan 1 tab 05/07/24 21:00 05/07/24 20:32 Sacubitril/Valsartan 24-26 Mg Tablet PO 1 tab Q12HR [facility] Administration Spironolactone 25 mg 05/08/24 09:00 Spironolactone 25 Mg Tablet PO QAM [facility] Radiology Results: ITS Impressions Chest X-Ray 05/07/24 05:40 Impression: Questionable minimal basilar pulmonary edema, or possibly minimal right basilar pneumonia. Correlate clinically. Stable cardiomegaly. Labs Labs: Laboratory Results - last 24 hr 05/08/24 07:24 Sodium 137 Potassium 4.4 Chloride 101 Carbon Dioxide 27 Anion Gap 9 BUN 31 H D Creatinine 1.04 Estim Creat Clear Calc 68 Estimated GFR > 60 Glucose 108 Calcium 9.5
[2024-05-08] MEDS: SACUBITRIL/VALSARTAN 24-26 MG TABLET 1 TAB PO ×2 (08:42→20:44)
[2024-05-08] MEDS: carvediloL 6.25 MG TABLET PO ×2 (08:42→20:43)
[2024-05-08] MEDS: SPIRONOLACTONE 25 MG TABLET PO (08:42)
[2024-05-08] MEDS: ASPIRIN 81 MG CHEWABLE TABLET PO (08:42)
[2024-05-08] MEDS: ENOXAPARIN 40 MG/0.4 ML SYRINGE SUB-Q (08:43)
[2024-05-08] MEDS: FUROSEMIDE 40 MG TABLET PO ×2 (08:43→16:30)
[2024-05-08] MEDS: predniSONE 20 MG, predniSONE 10 MG 30 MG PO (08:43)
[2024-05-09] VITALS (12 sets, daily range): BP systolic 105–153; BP diastolic 64–98; PULSE 54–98; RESP 16–20; TEMP 36.4–36.8; O2SAT 93–96
[2024-05-09 06:24] LABS: Hematocrit 46.9 % (42.0-52.0); Hemoglobin 15.7 g/dL (14.0-18.0); Mean Corpuscular HGB Conc 33.5 g/dl (32-36); Mean Corpuscular Hemoglobin 30.7 pg (26-34); Mean Corpuscular Volume 91.8 fl (80-100); Mean Platelet Volume 9.8 fl (7.4-10.4); Platelet Count Result 287 k/mm3 (150-375); Red Blood Count 5.11 M/mm3 (4.6-6.20); Red Cell Distribution Width 14.2 % (11.5-14.5); White Blood Count 11.4 K/mm3 (4.5-10.0)
[2024-05-09 06:31] LABS: Anion Gap 8 mmol/L (4-12); Blood Urea Nitrogen 35 mg/dL (9-20); Calcium 8.7 mg/dL (8.4-10.2); Carbon Dioxide 30 mmol/L (22-30); Chloride 99 mmol/L (98-107); Estimated CRCL calculation 63 ml/min; Estimated Glomerular Filt Rate > 60; Glucose 90 mg/dL (65-110); Potassium 4.1 mmol/L (3.4-5.0); Sodium 137 mmol/L (137-145)
--- NOTE | 2024-05-09 06:45 | PCRCNOTE ---
Window of time for administration has passed. See next scheduled administration.
[2024-05-09] MEDS: FUROSEMIDE 40 MG TABLET PO ×2 (08:12→17:44)
[2024-05-09] MEDS: SACUBITRIL/VALSARTAN 24-26 MG TABLET 1 TAB PO ×2 (08:12→20:16)
[2024-05-09] MEDS: ASPIRIN 81 MG CHEWABLE TABLET PO (08:12)
[2024-05-09] MEDS: SPIRONOLACTONE 25 MG TABLET PO (08:12)
[2024-05-09] MEDS: carvediloL 6.25 MG TABLET PO ×2 (08:12→20:16)
[2024-05-09] MEDS: ENOXAPARIN 40 MG/0.4 ML SYRINGE SUB-Q (08:14)
[2024-05-09] MEDS: predniSONE 20 MG, predniSONE 10 MG 30 MG PO (08:15)
--- NOTE | 2024-05-09 09:05 | PM.IMPN ---
Progress Note: A&P Assessment and Plan (1) Acute exacerbation of CHF (congestive heart failure): Code(s): I50.9 - Heart failure, unspecified Status: Acute Assessment and Plan: Symptoms: shortness of breath and lower extremity edema - EKG: Sinus tachycardia HR 110 - Chest XR: Questionable minimal basilar pulmonary edema, or possibly minimal right basilar pneumonia. Stable cardiomegaly. - Echo 05/08: LVEF 55-60%. Prior echo in 02/2024 with LVEF 25-30%. - Monitor vital signs, I&Os, BUN/creatinine, daily weights, neuro status and patient is a fall risk - Monitor serum electrolytes, Keep serum Potassium>4 and serum Magnesium>2 and CBC - Cardiology consulted, appreciate recommendations - Lasix at 40mg bid orally. - Aldactone 25 mg daily - Guideline therapy with coreg currently at 6.25mg bid and Entresto . - Consider SGLT if obtainable, although social situation may hamper. - Outpatient cardiology referral for ICD in 2-4 weeks (2) Nonischemic cardiomyopathy: Code(s): I42.8 - Other cardiomyopathies Status: Acute Assessment and Plan: see plan above #1 acute exacerbation of CHF (3) Essential hypertension: Code(s): I10 - Essential (primary) hypertension Status: Acute Assessment and Plan: Chronic - lasix 40 mg BID - coreg 6.25mg bid - Entresto / daily - blood pressures remain stable, continue to monitor (4) COPD exacerbation: Code(s): J44.1 - Chronic obstructive pulmonary disease with (acute) exacerbation Status: Acute Assessment and Plan: Likely secondary to RSV Supportive care, currently on room air. Feels improved. (5) Respiratory syncytial virus (RSV) infection: Code(s): B33.8 - Other specified viral diseases Status: Acute Assessment and Plan: Viral panel: RSV positive - Supportive treatment Time Spent With Patient Time with patient: 25 - 35 minutes Subjective Date/time seen: 05/09/24 09:05 Interval history: 68 yo male with past medical hsitory of HFrEF (25-30% 03/07), nonischemic cardiomyopathy, and COPD presenting with lower extremity edema with medication noncompliance of diuretics. Patient is pleasant sitting up in his bed. He continues to endorse shortness of breath stating that he feels wheezy. He notes that his lower extremity edema has much improved. Complaints denies chest pain, palpitations, nausea/ vomiting, and abdominal pain. Review of Systems Review of Systems: All systems reviewed & are unremarkable except as noted in HPI and below Exam Narrative: AF HR 57 RR 16 SpO2 96 BP 105/64 General: male in no acute respiratory distress who is nontoxic appearing, lying semi recumbent in bed. HEENT: Normocephalic. Atraumatic. Extraocular movement intact. Sclera clear and anicteric. No facial asymmetry. Chest: Lungs are diminished with slight wheezing throughout on auscultation bilaterally. No wheezes. CV: Heart was regular rate and rhythm. S1/S2. No murmurs, gallops, or rubs. Abd: Abdomen was soft. Nontender. Nondistended. Positive bowel sounds. No organomegaly or masses. Ext: No clubbing, cyanosis, or edema. 2+ DP pulses bilaterally. Neuro: Patient is alert. Speech is clear. Objective Data Vital Signs Vital Signs: Vital Signs - 24 hr 05/08/24 12:00 05/08/24 13:50 05/08/24 14:00 Temperature Pulse Rate 84 68 78 Respiratory Rate 18 20 Blood Pressure Pulse Oximetry Oxygen Delivery 05/08/24 14:00 05/08/24 16:00 05/08/24 20:00 Temperature 98.5 F Pulse Rate 72 71 Respiratory Rate 20 Blood Pressure 104/69 Pulse Oximetry 96 97 Oxygen Delivery Room Air 05/08/24 20:00 05/08/24 20:42 05/08/24 20:43 Temperature 98.3 F Pulse Rate 70 84 91 Respiratory Rate 16 Blood Pressure 112/88 Pulse Oximetry 98 Oxygen Delivery 05/08/24 21:40 05/08/24 21:46 05/09/24 00:00 Temperature Pulse Rate 84 76 Respiratory Rate 18 Blood Pressure Pulse Oximetry 98 Oxygen Delivery Room Air 05/09/24 04:00 05/09/24 05:54 05/09/24 08:12 Temperature 98.0 F Pulse Rate 86 69 54 L Respiratory Rate 16 Blood Pressure 153/98 H Pulse Oximetry 96 Oxygen Delivery Intake/Output Intake/Output: Intake & Output 05/06/24 05/07/24 05/08/24 05/09/24 23:59 23:59 23:59 23:59 Intake Total 240 1570 550 Output Total 550 2550 800 Balance -310 -980 -250 Meds/Results Medications: Active Medications Generic Name Dose Route Start Last Admin Trade Name Freq PRN Reason Stop Dose Admin Albuterol/Ipratropium 3 ml 05/07/24 14:00 05/09/24 06:44 Ipratropium 0.5 Mg/Albuterol Sulfate 2.5 Mg Ampul.Neb 3 Ml INHALATION Not Given Q6HRT [facility] Aspirin 81 mg 05/08/24 08:00 05/09/24 08:12 Aspirin 81 Mg Chewable Tablet PO 81 mg DAILY@0800 SOLEDAD Administration Carvedilol 6.25 mg 05/07/24 21:00 05/09/24 08:12 Carvedilol 6.25 Mg Tablet PO 6.25 mg Q12HR [facility] Administration Enoxaparin Sodium 40 mg 05/08/24 09:00 05/09/24 08:14 Enoxaparin 40 Mg/0.4 Ml Syringe SUB-Q 40 mg DAILY SOLEDAD Administration Furosemide 40 mg 05/07/24 17:00 05/09/24 08:12 Furosemide 40 Mg Tablet PO 40 mg BID SOLEDAD Administration Perflutren Lipid Microsphere 0 ml 05/07/24 13:51 Perflutren Lipid Microspheres 1.5 Ml Vial Diluted To 10 Ml Total Volume IV PUSH 05/10/24 13:51 ONCE PRN adequate visualization Protocol Prednisone 20 mg/ Prednisone 30 mg 05/08/24 08:00 05/09/24 08:15 10 mg PO 30 mg DAILY@0800 [facility] Administration Sacubitril/Valsartan 1 tab 05/07/24 21:00 05/09/24 08:12 Sacubitril/Valsartan 24-26 Mg Tablet PO 1 tab Q12HR SOLEDAD Administration Spironolactone 25 mg 05/08/24 09:00 05/09/24 08:12 Spironolactone 25 Mg Tablet PO 25 mg QAM SOL[facility] Administration Radiology Results: ITS Impressions Chest X-Ray 05/07/24 05:40 Impression: Questionable minimal basilar pulmonary edema, or possibly minimal right basilar pneumonia. Correlate clinically. Stable cardiomegaly. Labs Labs: Laboratory Results - last 24 hr 05/09/24 05:47 WBC 11.4 H RBC 5.11 Hgb 15.7 Hct 46.9 MCV 91.8 MCH 30.7 MCHC 33.5 RDW 14.2 Plt Count 287 MPV 9.8 Sodium 137 Potassium 4.1 Chloride 99 Carbon Dioxide 30 Anion Gap 8 BUN 35 H Creatinine 1.13 Estim Creat Clear Calc 63 Estimated GFR > 60 Glucose 90 Calcium 8.7 Magnesium 2.0 Quality VTE Prophylaxis VTE prophylaxis: pharmacologic ordered
--- NOTE | 2024-05-09 09:54 | PCRCNOTE ---
Window of time for administration has passed. See next scheduled administration.
[2024-05-09] MEDS: IPRATROPIUM 0.5 MG/ALBUTEROL SULFATE 2.5 MG AMPUL.NEB 3 ML INHALATION ×2 (13:12→20:24)
[2024-05-10] MEDS: IPRATROPIUM 0.5 MG/ALBUTEROL SULFATE 2.5 MG AMPUL.NEB 3 ML INHALATION ×2 (02:42→08:17)
[2024-05-10 02:43] VITALS: PULSE 84; RESP 20
[2024-05-10 02:55] VITALS: PULSE 84; RESP 20
[2024-05-10 05:29] VITALS: BP 129/82; PULSE 61; RESP 20; TEMP 36.4; O2SAT 95
[2024-05-10 08:20] VITALS: PULSE 64; RESP 18; O2SAT 94
[2024-05-10 08:35] VITALS: PULSE 66; RESP 20
--- NOTE | 2024-05-10 09:41 | PC.NURSE ---
Called and notified OPHELIA Lane that this patient left without notifying anyone (see note entered by Solange Sage RN). Hospitalist stated she would send medications to the patient's pharmacy and notify Jill Lundberg in Cardiology about this. I will call patient back and relay this information.
--- NOTE | 2024-05-10 09:48 | PC.NURSE ---
Called and spoke to Jeevan after notifying Hospitalist of patient leaving AMA. We discussed this incident. I let him know that the Hospitalist will send prescriptions to his pharmacy, but he would not have any printed discharge instructions. Patient verbalized understanding. I also verified with him that he had no IV access, which he stated was removed yesterday. Solange Sage RN stated IV was removed yesterday.
--- NOTE | 2024-05-10 09:56 | PC.NURSE ---
Addendum entered by Solange Sage RN 05/10/24 10:02: Unable to assess patient or pass morning medications before patient left AMA. Original Note: Patient noted to be receiving breathing treatment in room at approximately 0830. I spoke with patient about returning with his morning medications. At 0900 patient had left telemetry on bed and was unable to be found in room/halls. I called patient's phone number and he let me know he had important paperwork to sign and had left the hospital to do so. Charge nurse and powerhouse mechanic helper notified. Provider notified and aware of patient departure. IV removed yesterday 05/10.
--- NOTE | 2024-05-10 12:39 | P.PNCROSS_ITS ---
Event Note Event Note Event Note: Received a phone call from RN that the patient left AMA. Spoke with RN who stat es that the patient changed into his street clothes and left his tele monitor on the bed. She then called the patient who stated that he left the hospital to have his paperwork signed and was planning on coming back afterward. RN informed him that he would be unable to come back to his room since he left the hospital and would have to go back through the ER. Patient did not plan on returning and did not sign AMA paperwork. No physical exam was able to be performed as patient left before being seen. Call made to patient to inform him that his new prescriptions had been sent to his pharmacy. Discussed with him to continue monitoring his blood pressures, remain on a cardiac diet and to follow up with cardiology in the outpatient setting. Patient stating understanding. Final diagnosis: Acute heart failure exacerbation and COPD exacerbation likely secondary to RSV
== END 2024-05-10 09:00 | disposition left against medical advice (07) | DRG 292 ==
LOC: ANHED 05-07 04:16 → ANH2MED 05-07 05:18
PROVIDERS: Family Medicine; Nurse Practitioner Family; Admitting Provider Internal Medicine; Emergency Provider Emergency Medicine; PCP Emergency Medicine; Visit Provider Student in an Organized Health Care Education/Training Program
DX: I50.23 Acute on chronic systolic (congestive) heart failure (principal); I42.8 Other cardiomyopathies; J44.1 Chronic obstructive pulmonary disease with (acute) exacerbation; Z59.01 Sheltered homelessness; B97.4 Respiratory syncytial virus as the cause of diseases classified elsewhere; Z20.822 Contact with and (suspected) exposure to COVID-19; Z79.82 Long term (current) use of aspirin; Z91.199 Patient's noncompliance with other medical treatment and regimen due to unspecified reason
CPT/HCPCS: 36415; 71046; 80048; 80053; 83735; 83880; 85025; 85027; 87637; 93005; 93308; 94640; 96374; 96375; 99285; A9270; J1650; J1940; J2919; J7512

== ENCOUNTER 2024-07-09 03:55 | Emergency (ER) | payer MEDICARE, MEDICAID, SELFPAY ==
[2024-07-09] VITALS (9 sets, daily range): BP systolic 130–159; BP diastolic 91–117; PULSE 94–106; RESP 17–26; O2SAT 96–100
--- NOTE | ~2024-07-09 | XR_ITS ---
EXAMINATION: XR chest 2V DATE: 07/09/2024 04:33 INDICATION: Shortness of breath. TECHNIQUE: Frontal and lateral views of the chest were obtained. COMPARISON: Chest single view 05/17/2024, chest CT 03/05/2024 FINDINGS: A calcified left lung nodule and calcified left hilar and mediastinal lymph nodes are consi stent with old granulomatous disease. There is a diffuse interstitial pattern, consistent with mild p ulmonary edema. No pleural effusion or pneumothorax. Cardiomegaly is noted. IMPRESSION: 1. Mild pulmonary edema. 2. Cardiomegaly. Reviewed, dictated and finalized at location A.
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
--- OUTSIDE RECORDS SUMMARY | 2024-07-09 03:57 | XMS_ITS | Referral Summary ---
Author Organization [facility] Address [address] [place] [address] Care Team Providers Care Cathode Ray Tube Assembler Name Role Phone Zion Gaspar MD Unavailable Lisa Kern Primary Care Provider + Encounters Date Type Department Care Team Description 06/09/2024 11:00 AM BOOT TRIMMER Office Visit [facility] Medical [facility] Cardiology [address] [place] [phone] Jill Lundberg NP Nonischemic cardiomyopathy (HCC) (Primary Dx) 05/24/2024 Orders Only [facility] Cardiology [address] [place] [phone] Jill Lundberg NP 05/12/2024 Orders Only [facility] Cardiology [address] [place] [phone] Patricia Lantigua MD from Last 3 Months Allergies Active Allergy Reactions Criticality Noted Date Comments Ciprofloxacin Other (See comments) Low 12/27/2008 Sulfa (Sulfonamide Antibiotics) Other (See comments),Rash Medium 10/24/2021 Reaction: Medications doxycycline (VIBRAMYCIN) 100 mg capsule Take 1 tablet/capsule (100 mg total) by mouth 2 (two) times a day 20 capsule 09/07/202 4 Active Additional Information Patient not taking.Reported [...] to cardiology Coronary artery disease invo lving [place] coronary artery of [place] heart without angina pectoris 12/12/2023 Assessment & [...] refilled today Patient needs referral to new sap bi developer. Male hypogonadism 01/05/2020 Vitamin D deficiency 06/28/2019 [...] 12/12/2023 Dyspnea and respiratory abnormalities 12/12/2023 Immunizations Immunization Administration Dates Next Due Influenza, Unspecified 01/29/2023(Deferr ed: Patient decision),01/29/2022(Deferred: Patient decision),03/14/2003,12/13/1998 Pneumococcal Polysaccharide PPV23 03/07/2009, Tdap 12/20/2023,03/07/2013 Social History Tobacco Use Types Packs/Day Years Used Date Smoking Tobacco: Never Passive Smoke Exposure: Past Smokeless Tobacco: Never Tobacco Cessation:Counseling Given: Not Answered [facility] Utilities Answer Date Recorded In the past 12 months has [employer], gas, oil, or water [employer] threatened to shut off services in your [...] often do you attend chur ch or samaritan services? Never 12/12/2023 Do you belong to any clubs o r organizations such as orthodoxy groups, unions, fraternal or athletic groups, or [...] any time in the past 12 m [facility], were you homeless or living in a longterm (including now)? Yes 12/12/2023 Personal Safety Answer Date Recorded Have you ever been in or are you currently in a harmful physical or emotional relationship or is someone making you feel afraid or unsafe? Denies 02/13/2024 Sex and Gender Information Value Date Recorded Sex Assigned at Not on file Legal Sex Male 6:59 AM BOOT TRIMMER Gender Identity Not on file Sexual Orientation Not on file Last Filed Vital Signs Vital Sign Reading Time Taken Comments Blood Pressure 140/100 06/09/2024 10:55 AM BOOT TRIMMER Pulse 84 06/09/2024 10:55 AM BOOT TRIMMER Temperature 36.4 C (97.6 F) 02/13/2024 7:14 AM CDT Respiratory Rate 19 02/13/2024 7:14 AM CDT Oxygen Saturation 99% 06/09/2024 10:55 AM BOOT TRIMMER Inhaled Oxygen Concentration - - Weight 96.2 kg (212 lb) 06/09/2024 10:55 AM BOOT TRIMMER Height 182.9 cm (6') 06/09/2024 10:55 AM BOOT TRIMMER Body Mass Index 28.75 06/09/2024 10:55 AM BOOT TRIMMER Plan of Treatment Not on file Procedures Procedure Name Priority Date/Time Associated Diagnosis Comments CARDIOLOGY DOCUMENT SCAN Routine 05/08/2024 9:38 AM BOOT TRIMMER CARDIOLOGY DOCUMENT SCAN Routine 05/07/2024 5:13 PM BOOT TRIMMER PSA SCREEN Routine 12/12/2023 10:00 AM CDT Screening PSA (prostate specific antigen) from Last 3 Months or Most Recently Relevant to Health Maintenance Results * Cardiology Document Scan (05/08/2024 9:38 AM BOOT TRIMMER) Anatomical Region Laterality Modality Other Patricia Lantigua MD CV CARDIAC SERVICES PROCEDU RES Final Result * Cardiology Document Scan (05/07/2024 5:13 PM BOOT TRIMMER) Anatomical Region Laterality Modality Other Jill Lundberg [...] data last revised 21. Testing performed by: [facility], [address] [place] [address], [place]., [address] Blood 12/12/2023 10:0 0 AM CDT 12/12/2023 12:16 PM CDT us Lisa JACINTO LAB BLOOD ORDERABLES Fin al Result MAR[facility] [address] [facility] Department [place] [address] from Last 3 Months or Most Recently Relevant to Health Maintenance [facility] [place] MEDICARE [facility] Advance Directives For more information, please contact: [phone] * Full Code (Latest Code Status on File) Date Activated Date Inactivated Comments 11/03/2023 4:46 PM 11/06/2023 6:41 PM * Full Code Date Activated Date Inactivated Comments 07/18/2023 11:06 AM 07/19/2023 7:36 PM Care Teams Cathode Ray Tube Assembler Relationship Specialty Start Date End Date Lisa Kern PA [address] [facility] [address] [place], [place] [id number] PCP - General Family Medicine 12/12/23 [place] [id number] [address] Consulting Physician Cardiovascular Disease 07/19/23
--- OUTSIDE RECORDS SUMMARY | 2024-07-09 03:57 | XMS_ITS | Clinical Summary ---
Author Organization [facility] Address [address] [place] [id number] Care Team Providers Care Public Relations Writer Name Role Phone Unavailable Primary Care Provider [...] (1 - 1-dose 75+ series) 2032 Meningococcal B Vaccine Aged Out No l onger eligible based on patient's age to complete this topic Meningococcal Vaccine Aged Out No patience hanny eligible based on patient's age to complete this topic RSV Immunizations Under 20 Months Aged Out No longer eligible based on patient's age to complete this topic
--- OUTSIDE RECORDS SUMMARY | 2024-07-09 03:57 | XMS_ITS | CONTINUITY OF CARE DOCUMENT ---
Author Name yareliskyaramaci Address Unknown Organization [facility] Address [address] [facility] [address] [place] [address] Phone [phone] Care Team Providers Care New Home Sales Consultant Name Role Phone Zion Gaspar MD Unavailable [phone] RICO ROBERSON MD Unavailable [phone] PROBLEMS Condition Status Date Provider Notes Cardiology examination active Zion [place] CHF active Zion Gaspar MD Shortness of breath active Zion Gaspar MD COPD active Zion Gaspar MD ENCOUNTERS Date Type Provider Location Encounter Diag nosis - In-person encounter Office Visit Zion Gaspar MD [place] [facility] Cardiology examinationCHFShortness of breathCOPD VITAL SIGNS Date Observation Value Provider Body Mass Index (Ratio) 29.56 kg/m2 Fabian ribeiro Compa blood pressure, diastolic 74 mm[Hg] Rita [...] Payer name Policy type / Coverage type [place] red libertarian [place] MEDIC[place] B Medicare [id number] [facility] Medicaid 2 [id number] ADVANCE DIRECTIVES Name Date DISCUSSED - NO DECISION MADE TREATMENT PLAN Date Name Performer Cardiology Riccardo Chatman Cardiology: H is updated medication list for this problem includes: Carvedilol 6.25 Mg Tablet (Carvedilol) ..... Take 1 tablet by mouth twice a day Furosemide 20 Mg Tablet (Furosemide) ..... Take 1 tablet by mouth once a day Riccardo Chatman Cardiology:Pt had re cent admission to [facility] with new onset CHF. Per pt, he [...]
--- OUTSIDE RECORDS SUMMARY | 2024-07-09 03:57 | XMS_ITS | Encounter Summary ---
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 Never 07/18/2023 8:25 AM Dori Saucedo, PRINCE Q2: How many drinks containing alcohol do you have on a typical day when you are drinking? Patient does not drink 07/18/2023 8:25 AM Dori Saucedo RN Q3: How often do you have six or more drinks on one occasion? Never 07/18/2023 8:25 AM Dori Saucedo, PRINCE documented as of this encounter Plan of [...] documented as of this encounter Care Teams Range Mounter Relationship Specialty Start Date End Date Emre Andrade MD PCP - General Emergency Medicine 10/19/21 12/11/23 Lisa Kern PA [address] [facility] [address] [place] [address] PCP - General Family Medicine 12/12/23 [place] [id number] [address] Consulting Physician Cardiovascular Disease 07/19/23 documented as of this encounter
--- NOTE | 2024-07-09 04:01 | ECG_ITS ---
Test Date: 2024-07-09 04:09:10 Measurements Intervals Sloan Rate: 102 P: 54 [place]: 185 QRS: -17 QRSD: 114 T: 128 QT: 356 QTc: 464 Interpretive Statements SINUS TACHYCARDIA WITH OCCASIONAL VENTRICULAR PREMATURE COMPLEXES LEFT ATRIAL ENLARGEMENT [-0.15mV P WAVE IN V1/V2] LEFT VENTRICULAR HYPERTROPHY AND ST-T CHANGE [VOLTAGE CRITERIA PLUS ST/T ABNORMALITY] Compared to ECG 05/17/2024 21:30:55 Ventricular premature complex(es) now present Electronically Signed On 07-09-2024 10:59:31 CDT by Leora Brambila M.D.
[2024-07-09 04:20] LABS: Basophils Absolute Auto 0.1 K/mm3 (0.0-0.1); Basophils Percent Auto 1.1 % (0.2-1.2); Eosinophils Absolute Auto 0.4 K/mm3 (0-0.3); Eosinophils Percent Auto 4.9 % (0-4.4); Hematocrit 43.6 % (42.0-52.0); Immature Granulocyte Absolute 0.01 K/mm3 (0.00-0.031); Immature Granulocyte Percent A 0.1 % (0-0.5); Lymphocytes Percent Auto 36.7 % (18.3-44.2); Mean Corpuscular HGB Conc 32.1 g/dl (32-36); Mean Corpuscular Hemoglobin 31.6 pg (26-34); Mean Corpuscular Volume 98.4 fl (80-100); Mean Platelet Volume 9.4 fl (7.4-10.4); Monocytes Absolute Auto 0.6 K/mm3 (0.1-0.6); Monocytes Percent Auto 6.7 % (2.6-8.5); Neutrophils Absolute Auto 4.1 K/mm3 (1.3-6.7); Neutrophils Percent Auto 50.5 % (45.5-73.1); Platelet Count Result 248 k/mm3 (150-375); Red Blood Count 4.43 M/mm3 (4.6-6.20); Red Cell Distribution Width 15.9 % (11.5-14.5); White Blood Count 8.2 K/mm3 (4.5-10.0)
[2024-07-09 04:30] LABS: Alanine Aminotransferase 53 U/L (6-50); Albumin Level 4.3 g/dL (3.5-5.1); Alkaline Phosphatase 79 U/L (38-126); Anion Gap 10 mmol/L (4-12); Aspartate Amino Transferase 43 U/L (17-59); Bilirubin,Total 1.7 mg/dL (0.2-1.3); Blood Urea Nitrogen 34 mg/dL (9-20); Calcium 9.4 mg/dL (8.4-10.2); Carbon Dioxide 26 mmol/L (22-30); Chloride 104 mmol/L (98-107); Estimated CRCL calculation 46 ml/min; Estimated Glomerular Filt Rate 46; Glucose 104 mg/dL (65-110); Potassium 4.7 mmol/L (3.4-5.0); Sodium 140 mmol/L (137-145)
--- OUTSIDE RECORDS SUMMARY | 2024-07-09 04:49 | XMS_ITS | Referral Summary ---
Author Organization [facility] Address [address] [place] [address] Care Team Providers Care Cleaning Supervisor Name Role Phone Zion Gaspar MD Unavailable Lisa Kern Primary Care Provider + Encounters Date Type Department Care Team Description 06/09/2024 11:00 AM PUMP AND STILL OPERATOR Office Visit [facility] Medical [facility] Cardiology [address] [facility] [address] [place] [phone] Jill Lundberg NP Nonischemic cardiomyopathy (HCC) (Primary Dx) 05/24/2024 Orders Only [facility] Cardiology [address] [facility] [address] [place] [phone] Jill Lundberg NP 05/12/2024 Orders Only [facility] Cardiology [address] [facility] [address] [place] [phone] Patricia Lantigua MD from Last 3 Months [...] to cardiology Coronary artery disease invo lving cachil dehe coronary artery of c[place] dehe heart without angina pectoris 12/12/2023 Assessment & [...] refilled today Patient needs referral to new transportation clerk. Male hypogonadism 01/05/2020 Vitamin D deficiency 06/28/2019 [...] Tobacco: Never Tobacco Cessation:Counseling Given: Not Answered [facility] Utilities Answer Date Recorded In the past 12 months has [employer], gas, oil, or water [email or web address] threatened to shut off services in your [...] often do you attend chur ch or pentecostalism services? 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 Gender Identity Not on file Sexual Orientation Not on file Last Filed Vital Signs Vital Sign Reading Time Taken Comments Blood Pressure 140/100 06/09/2024 10:55 AM PUMP AND STILL OPERATOR Pulse 84 06/09/2024 10:55 AM PUMP AND STILL OPERATOR Temperature 36.4 C (97.6 F) 02/13/2024 7:14 AM CDT Respiratory Rate 19 02/13/2024 7:14 AM CDT Oxygen Saturation 99% 06/09/2024 10:55 AM PUMP AND STILL OPERATOR Inhaled Oxygen Concentration - - Weight 96.2 kg (212 lb) 06/09/2024 10:55 AM PUMP AND STILL OPERATOR Height 182.9 cm (6') 06/09/2024 10:55 AM PUMP AND STILL OPERATOR Body Mass Index 28.75 06/09/2024 10:55 AM PUMP AND STILL OPERATOR Plan of Treatment Not on file Procedures Procedure Name Priority Date/Time Associated Diagnosis Comments CARDIOLOGY DOCUMENT SCAN Routine 05/08/2024 9:38 AM PUMP AND STILL OPERATOR CARDIOLOGY DOCUMENT SCAN Routine 05/07/2024 5:13 PM PUMP AND STILL OPERATOR PSA SCREEN Routine 12/12/2023 10:00 AM CDT Screening PSA (prostate specific antigen) from Last 3 Months or Most Recently Relevant to Health Maintenance Results * Cardiology Document Scan (05/08/2024 9:38 AM PUMP AND STILL OPERATOR) Anatomical Region Laterality Modality Other Patricia Lantigua MD CV CARDIAC SERVICES PROCEDU RES Final Result * Cardiology Document Scan (05/07/2024 5:13 PM PUMP AND STILL OPERATOR) Anatomical Region Laterality Modality Other Jill Lundberg [...] data last revised 21. Testing performed by: [facility], [address] [place] [address], [place]., [address] Blood 12/12/2023 10:0 0 AM CDT 12/12/2023 12:16 PM CDT us Lisa JACINTO LAB BLOOD ORDERABLES Fin al Result MARINO [address] [facility] Department [place] [address] from Last 3 Months or Most Recently Relevant to Health Maintenance Insurance [facility] MEDICARE IDMA MEDICARE [facility] Advance Directives For more information, please contact: [phone] * Full Code (Latest Code Status on File) Date Activated Date Inactivated Comments 11/03/2023 4:46 PM 11/06/2023 6:41 PM * Full Code Date Activated Date Inactivated Comments 07/18/2023 11:06 AM 07/19/2023 7:36 PM Care Teams Cleaning Supervisor Relationship Specialty Start Date End Date Lisa Kern PA [address] [facility] [address] [place], [place] [id number] PCP - General Family Medicine 12/12/23 [place] [id number] [address] Consulting Physician Cardiovascular Disease 07/19/23
--- OUTSIDE RECORDS SUMMARY | 2024-07-09 04:49 | XMS_ITS | CONTINUITY OF CARE DOCUMENT ---
Author Name yareliskyaramaci Address Unknown Organization [facility] Address [address] [place] [address] Phone [phone] Care Team Providers Care Engineering Administrator Name Role Phone Zion Gaspar MD Unavailable [phone] RICO ROBERSON MD Unavailable [phone] PROBLEMS Condition Status Date Provider Notes Cardiology examination active Zion [place] CHF active Zion Gaspar MD Shortness of breath active Zion Gaspar MD COPD active Zion Gaspar MD ENCOUNTERS Date Type Provider Location Encounter Diag nosis - In-person encounter Office Visit Zion Gaspar MD [place] [facility] Cardiology examinationCHFShortness of breathCOPD VITAL SIGNS [...] /min [place] y height E&M 72 [in_i] [place] y oxygen saturation, oximetry 96 % [place] [...] Payer name Policy type / Coverage type [place] red [place] party [place] B Medicare [id number] [facility] Medicaid 2 [id number] ADVANCE DIRECTIVES Name Date DISCUSSED - NO DECISION MADE TREATMENT PLAN Date Name Performer Cardiology Riccardo Chatman Cardiology: H is updated medication list for this problem includes: Carvedilol 6.25 Mg Tablet (Carvedilol) ..... Take 1 tablet by mouth twice a day Furosemide 20 Mg Tablet (Furosemide) ..... Take 1 tablet by mouth once a day Riccardo Chatman Cardiology:Pt had re cent admission to [facility] with new onset CHF. Per pt, he [...]
--- OUTSIDE RECORDS SUMMARY | 2024-07-09 04:49 | XMS_ITS | Clinical Summary ---
Author Organization [facility] Address [address] [place] [address] Care Team Providers Care Director Emergency Department Name Role Phone Unavailable Primary Care Provider [...]
--- OUTSIDE RECORDS SUMMARY | 2024-07-09 04:49 | XMS_ITS | Clinical Summary ---
Author Organization [facility] Address [address] [place] [address] Care Team Providers Care Cotton Dispatcher Name Role Phone Zion Gaspar MD Unavailable [...] to cardiology Coronary artery disease invo lving ramona coronary artery of ramona heart without angina pectoris 12/12/2023 Assessment & [...] refilled today Patient needs referral to new plant buyer. Male hypogonadism 01/05/2020 Vitamin D deficiency 06/28/2019 [...] Department Care Team Description 06/09/2024 11:00 AM DROP BOARD MAN Office Visit [facility] Medical [facility] Cardiology [address] [facility] [address] [place] [address] Jill Lundberg NP Nonischemic cardiomyopathy (HCC) (Primary Dx) 05/24/2024 Orders Only [facility] Cardiology [address] [facility] [address] [place] [phone] Jill Lundberg NP 05/12/2024 Orders Only [facility] Cardiology [address] [facility] [address] [place] [address] Patricia Lantigua MD from Last 3 Months [...] Tobacco: Never Tobacco Cessation:Counseling Given: Not Answered [facility] Utilities Answer Date Recorded In the past 12 months has [employer], gas, oil, or water [employer] threatened to shut off services in your [...] often do you attend chur ch or hoahaoism services? Never 12/12/2023 Do you belong to any clubs o r organizations such as nondenominational groups, unions, fraternal or athletic groups, or [...] any time in the past 12 m [facility], were you homeless or living in a residential (including now)? Yes 12/12/2023 Personal Safety Answer Date Recorded Have you ever been in or are you currently in a harmful physical or emotional relationship or is someone making you feel afraid or unsafe? Denies 02/13/2024 Sex and Gender Information Value Date Recorded Sex Assigned at Not on file Legal Sex Male 6:59 AM DROP BOARD MAN Gender Identity Not on file Sexual Orientation Not on file Obstetrics History Last Filed Vital Signs Vital Sign Reading Time Taken Comments Blood Pressure 140/100 06/09/2024 10:55 AM DROP BOARD MAN Pulse 84 06/09/2024 10:55 AM DROP BOARD MAN Temperature 36.4 C (97.6 F) 02/13/2024 7:14 AM CDT Respiratory Rate 19 02/13/2024 7:14 AM CDT Oxygen Saturation 99% 06/09/2024 10:55 AM DROP BOARD MAN Inhaled Oxygen Concentration - - Weight 96.2 kg (212 lb) 06/09/2024 10:55 AM DROP BOARD MAN Height 182.9 cm (6') 06/09/2024 10:55 AM DROP BOARD MAN Body Mass Index 28.75 06/09/2024 10:55 AM DROP BOARD MAN Plan of Treatment Health Maintenance Due Date [...] CARDIOLOGY DOCUMENT SCAN Routine 05/08/2024 9:38 AM DROP BOARD MAN CARDIOLOGY DOCUMENT SCAN Routine 05/07/2024 5:13 PM DROP BOARD MAN PSA SCREEN Routine 12/12/2023 10:00 AM CDT Screening PSA (prostate specific antigen) from Last 3 Months or Most Recently Relevant to Health Maintenance Results * Cardiology Document Scan (05/08/2024 9:38 AM DROP BOARD MAN) Anatomical Region Laterality Modality Other Patricia Lantigua MD CV CARDIAC SERVICES PROCEDU RES Final Result * Cardiology Document Scan (05/07/2024 5:13 PM DROP BOARD MAN) Anatomical Region Laterality Modality Other Jill Lundberg [...] data last revised 21. Testing performed by: [facility], [address] [place] [address]., [id number] Blood 12/12/2023 10:0 0 AM CDT 12/12/2023 12:16 PM CDT Lisa JACINTO LAB BLOOD ORDERABLES Fin al Result MARINO [address] [facility] Department [place] [address] from Last 3 Months or Most Recently Relevant to Health Maintenance Insurance [employer] [place] MEDICARE [place] MEDICARE [place] Advance Directives For more information, please contact: [phone] * Full Code (Latest Code Status on File) Date Activated Date Inactivated Comments 11/03/2023 4:46 PM 11/06/2023 6:41 PM * Full Code Date Activated Date Inactivated Comments 07/18/2023 11:06 AM 07/19/2023 7:36 PM Care Teams Cotton Dispatcher Relationship Specialty Start Date End Date Lisa Kern PA [address] [facility] [address] [place] [address] PCP - General Family Medicine 12/12/23 [place] [address] [address] [facility] [place] [address] Consulting Physician Cardiovascular Disease 07/19/23
--- OUTSIDE RECORDS SUMMARY | 2024-07-09 04:49 | XMS_ITS | Encounter Summary ---
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
[2024-07-09 04:57] LABS: Influenza A QL RT-PCR Negative (Negative); Influenza B QL RT-PCR Negative (Negative); RSV RNA, RT-PCR Negative (Negative); SARS-CoV-2 RNA PCR Negative (Negative)
[2024-07-09 06:06] LABS: Troponin I 0.033 ng/mL (0.000-0.034)
[2024-07-09] MEDS: IPRATROPIUM 0.5 MG/ALBUTEROL SULFATE 2.5 MG AMPUL.NEB 3 ML INHALATION (08:19)
--- NOTE | 2024-07-09 09:21 | ED.SOB ---
HPI - SOB/Dyspnea General Chief Complaint: Shortness of Breath/Dyspnea Stated Complaint: sob Time Seen by Provider: 07/09/24 04:42 Source: patient Mode of arrival: ambulatory Limitations: no limitations History of Present Illness HPI Narrative: 69-year-old with a history CHF, hypertension noncompliant medication presents to the ER it complains of shortness it is been ongoing on and off for quite some time. Patient states that he took Lasix 3 days ago. He denies having any chest pain. Patient states every time he comes she gets that he nebulizer treatment IV Lasix here and he wants all these done . MD elicited complaint: shortness of breath Pertinent past history: congestive heart failure Onset (ago): week(s) Timing: constant Severity: moderate Exacerbating factors: nothing Relieving factors: bronchodilators Known history of: congestive heart failure Associated symptoms: denies other symptoms Treatment prior to arrival: none Related Data Home Medications ?Medication ?Instructions ?Recorded ?Confirmed ?Last Taken ?Type aspirin 81 mg tablet 81 mg PO DAILY 03/06/24 05/27/24 Unknown History Allergies Allergy/AdvReac Type Severity Reaction Status Date / Time Sulfa (Sulfonamide Allergy Mild Itching Verified 07/09/24 03:56 Antibiotics) Review of Systems Review of Systems: All systems reviewed & are unremarkable except as noted in HPI and below Constitutional: Constitutional: Reports no additional constitutional complaints Eyes: Eyes: Reports no additional eye complaints ENT: Reports system reviewed and no additional complaints, except as documented Cardiovascular: Cardiovascular: Reports no additional cardiovascular complaints Respiratory: Respiratory: Reports as per HPI Gastrointestinal: Gastrointestinal: Reports no additional gastrointestinal complaints Musculoskeletal: Musculoskeletal: Reports no additional musculoskeletal complaints Neurologic: Reports system reviewed and no additional complaints, except as documented [facility] Past Medical History Medical History Severe chronic obstructive pulmonary disease With good response to bronchodilator noted on PFTs 10/2020 Toe fracture, left multiple toes Bronchitis Nose fracture Surgical History Surgical History History of tonsillectomy Family History Family History (Updated 05/27/24 @ 14:28 by Lashae Marcano APRN) Mother , in her 80s Diabetes mellitus Lung cancer COPD (chronic obstructive pulmonary disease) Father , at 83 years old Acute myocardial infarction Biventricular ICD (implantable cardioverter-defibrillator) in place COPD (chronic obstructive pulmonary disease) Sibling Lung cancer Social History Social History Social History: Patient was 3 times. His last between 3 and 5 years ago cancer. He then had a girlfriend who also developed cancer and in August of 2022. 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 He briefly smoked when he was younger. He denies any significant alcohol use. He denies any illicit substance use. Code status: DNR/DNI (per patient request) The patient reports he does not have a surrogate decision maker and has no family members left. He does not have any friends he feels close enough to ask to make that type of decision. Years smoked: 5 Smoking status: Never smoker Alcohol intake: never Substance use: former Substance use type: marijuana Do You Feel Safe in your Home?: Yes Lack of Transportation: YES Lack of Food: Often True Current Housing: I Do Not Have Housing Concerned About Future Housing: YES Difficulty Paying Gas/Electric Bills: No Difficulty Paying for Meds: YES Currently Unemployed: No Education: Decline to Answer Difficulty w/ Childcare or Family Care: No Gender identity (if verbalized by the patient): Male Spiritual care concerns: No Exam Narrative: GENERAL: Well-appearing, well-nourished, and in no acute distress. HEAD: Normocephalic, atraumatic. EYES: PERRLA and EOMI. ENT: Nares clear, no rhinorrhea or epistaxis. Mucous membranes moist. NECK: Supple. CHEST: Clear to auscultation. No respiratory distress. HEART: Regular rate and rhythm. No murmur heard. Normal peripheral pulses. ABDOMEN: Soft, nontender, nondistended, normal active bowel sounds. EXTREMITIES: Normal range of motion. one plus edema. SKIN: Warm, dry, no rash. NEURO: No focal deficits. Alert and oriented x3. PSYCH: Normal mood and affect. Course Course Emergency Course: As per the patient request I did give him IV Lasix and a bronchodilator treatment. Informed him about his lab work, chest x-ray findings. Advised him to be compliant with his medication, recommended to follow with his primary doctor. Vital Signs Vital signs: Vital Signs Pulse Rate 94 07/09/24 03:59 Respiratory Rate 20 07/09/24 03:59 Blood Pressure 159/108 H 07/09/24 03:59 Pulse Oximetry 100 07/09/24 03:59 Oxygen Delivery Room Air 07/09/24 03:59 Pulse Rate 99 07/09/24 08:27 Respiratory Rate 20 07/09/24 08:27 Blood Pressure 141/117 H 07/09/24 08:15 Pulse Oximetry 96 07/09/24 08:23 Oxygen Delivery Room Air 07/09/24 08:23 MDM - SOB/Dyspnea Differential Diagnosis Differential diagnosis: Likely acute exacerbation of chronic obstructive airways disease and congestive heart failure Medical Records Attestation: I reviewed the patient's medical records. Lab Data Attestation: I reviewed the patient's lab results. 07/09/24 04:10 07/09/24 04:10 Labs: Lab Results 07/09/24 07/09/24 07/09/24 Range/Units 04:09 04:10 04:12 WBC 8.2 (4.5-10.0) K/mm3 RBC 4.43 L (4.6-6.20) M/mm3 Hgb 14.0 (14.0-18.0) g/dL Hct 43.6 (42.0-52.0) % MCV 98.4 (80-100) fl MCH 31.6 (26-34) pg MCHC 32.1 (32-36) g/dl RDW 15.9 H (11.5-14.5) % Plt Count 248 (150-375) k/mm3 MPV 9.4 (7.4-10.4) fl Immature Gran % (Auto) 0.1 (0-0.5) % Neut % (Auto) 50.5 (45.5-73.1) % Lymph % (Auto) 36.7 (18.3-44.2) % Lucas % (Auto) 6.7 (2.6-8.5) % Eos % (Auto) 4.9 H (0-4.4) % Baso % (Auto) 1.1 (0.2-1.2) % Lymph # (Auto) 3.00 (0.9-3.2) K/mm3 Lucas # (Auto) 0.6 (0.1-0.6) K/mm3 Eos # (Auto) 0.4 H (0-0.3) K/mm3 Baso # (Auto) 0.1 (0.0-0.1) K/mm3 Abs Immat Gran (auto) 0.01 (0.00-0.031) K/mm3 Absolute Neuts (auto) 4.1 (1.3-6.7) K/mm3 Absolute Nucleated RBC 0.000 (0.0-0.012) K/mm3 Nucleated RBC % 0.0 (0.0-0.2) % Sodium 140 (137-145) mmol/L Potassium 4.7 (3.4-5.0) mmol/L Chloride 104 (98-107) mmol/L Carbon Dioxide 26 (22-30) mmol/L Anion Gap 10 (4-12) mmol/L BUN 34 H (9-20) mg/dL Creatinine 1.53 H (0.7-1.3) mg/dL Estim Creat Clear Calc 46 ml/min Estimated GFR 46 L (59 - ) Glucose 104 (65-110) mg/dL Calcium 9.4 (8.4-10.2) mg/dL Total Bilirubin 1.7 H (0.2-1.3) mg/dL AST 43 (17-59) U/L ALT 53 H (6-50) U/L Alkaline Phosphatase 79 (38-126) U/L Troponin I 0.033 (0.000-0.034) ng/mL Total Protein 8.0 (6.3-8.2) g/dL Albumin 4.3 (3.5-5.1) g/dL Influenza A (RT-PCR) Negative (Negative) Influenza B (RT-PCR) Negative (Negative) RSV (RT-PCR) Negative (Negative) SARS-CoV-2 RNA (RT-PCR) Negative (Negative) Imaging Data Radiologist's impression: ITS Impressions Chest X-Ray 07/09/24 05:26 IMPRESSION: 1. Mild pulmonary edema. 2. Cardiomegaly. ECG Data EKG #1: ECG completion date: 07/09/24 ECG completion time: 04:09 EKG Interpretation: tachycardia (102), no ectopy, no ST changes and NL axis Discharge Plan Discharge Clinical Impression: Acute exacerbation of CHF (congestive heart failure), Medical non-compliance Patient Disposition: Home, Self-Care Condition: Stable Instructions: Heart Failure (ED) Additional Instructions: continue home medication, follow with your doctor . be strict on your diet. Patient Language: Bruneian Prescriptions: No Action albuterol sulfate 90 mcg/actuation HFA aerosol inhaler 2 puff INHALATION Q4H PRN (Reason: Shortness Of Breath Or Wheezing) Qty: 6.7 0RF Breztri Aerosphere 160-9-4.8 mcg/actuation HFA aerosol inhaler 2 inh inhalation BID Qty: 5.9 5RF carvedilol [Coreg] 6.25 mg tablet 6.25 mg PO Q12HR Qty: 60 5RF sacubitril-valsartan [Entresto] 24-26 mg tablet 1 tablet PO Q12HR Qty: 60 5RF furosemide 20 mg tablet 40 mg PO DAILY Qty: 30 1RF aspirin 81 mg Tablet 81 mg PO DAILY Follow-up/Referrals: Lashae Marcano APRN [Primary Care Provider] - Time of Disposition: 09:39
[2024-07-09] MEDS: FUROSEMIDE INJ 40 MG/4 ML VIAL IV PUSH (09:33)
== END 2024-07-09 10:33 | disposition home or self-care (01) ==
PROVIDERS: Student in an Organized Health Care Education/Training Program; Emergency Provider Family Medicine; PCP Nurse Practitioner Family
DX: I11.0 Hypertensive heart disease with heart failure (principal); I50.9 Heart failure, unspecified; Z91.128 Patient's intentional underdosing of medication regimen for other reason; Z20.822 Contact with and (suspected) exposure to COVID-19; J44.9 Chronic obstructive pulmonary disease, unspecified; Z66 Do not resuscitate; Z87.891 Personal history of nicotine dependence; I51.7 Cardiomegaly; Z79.82 Long term (current) use of aspirin; Z79.899 Other long term (current) drug therapy
CPT/HCPCS: 36415; 71046; 80053; 84484; 85025; 87637; 93005; 94640; 96374; 99284; J1940

== ENCOUNTER 2024-07-14 16:38 | Inpatient (IN) | payer MEDICARE, MEDICAID, SELFPAY ==
--- NOTE | ~2024-07-14 | US_ITS ---
EXAMINATION: US venous doppler [facility] DATE: 07/15/2024 14:01 INDICATION: DVT suspected clinically TECHNIQUE: Grayscale ultrasound images without and with compression and Doppler ultrasound images of the bilateral lower extremity veins were obtained. COMPARISON: None. FINDINGS: The visualized portions of right common femoral vein, profunda (deep) femoral vein, femoral vein, pop liteal vein, peroneal veins, posterior tibial veins, and greater saphenous vein outflow are patent. The visualized portions of left common femoral vein, profunda femoral vein, femoral vein, popliteal v ein, peroneal veins, posterior tibial veins, and greater saphenous vein outflow are patent. IMPRESSION: 1. No deep venous thrombosis. Reviewed, dictated and finalized at location A.
--- NOTE | ~2024-07-14 | XR_ITS ---
XR abdomen/kub 1V Ordering provider: Jessica Irby APRN History: . abd pain/ CONSTIPATION . Comparison: None. FINDINGS: BOWEL: Fecal material is loaded in the colon. Nonobstructive bowel gas pattern. ORGANOMEGALY: None. SIGNIFICANT PATHOLOGIC CALCIFICATIONS: None. OTHER: Cardiomegaly. No free air is seen under the diaphragm. Degenerative the spine. IMPRESSION: NO ACUTE ABDOMINAL FINDINGS. Constipation. Reviewed, dictated and finalized at location A.
--- NOTE | ~2024-07-14 | CT_ITS ---
EXAMINATION: CTA chest PE abdomen pel DATE: 07/14/2024 20:06 CDT INDICATION: Chest pain, shortness of breath, lower extremity edema. COMPARISON: 03/05/2024 TECHNIQUE: Computed tomographic angiography (CTA) of the chest was performed, along with multiple con tiguous axial images of the abdomen and pelvis with 100 mL Omnipaque-350 intravenous contrast. The do se-length product was 1252.12 mGy-cm. Maximum intensity projection 3D-reconstructions of the aorta an d other arteries were constructed by the technologist on a separate workstation. Images of the abdomen are significantly limited secondary to motion artifact. FINDINGS/OBSERVATIONS: PULMONARY ARTERIES: No filling defect is identified within the main or proximal pulmonary artery. The main pulmonary artery is not enlarged. THORACIC AORTA: No aneurysmal dilatation or dissection is present. The great vessels are intact LUNGS: Patchy bilateral alveolar infiltrates, suggesting pulmonary vascular congestion. Cylindrical b ronchiectasis is also noted. MEDIASTINUM: Calcified lymph nodes are identified, suggesting prior granulomatous disease. No morphol ogically suspicious or pathologically enlarged lymph nodes are identified within the mediastinum or b ilateral axilla. BONES OF THE CHEST: No acute fracture. No significant degenerative disease. No lytic or blastic lesions. HEART: The heart is enlarged, without pericardial effusion. LIVER: Punctate calcifications identified within the hepatic parenchyma, suggesting prior granulomato us disease. The remainder of the liver otherwise enhances homogeneously and is not enlarged. GALLBLADDER AND BILIARY SYSTEM: The gallbladder is only minimally distended, and otherwise unremarkable. PANCREAS: The pancreas enhances homogeneously without ductal dilatation. SPLEEN: Punctate calcifications identified within the splenic parenchyma, suggesting prior granulomat ous disease. The remainder of the spleen otherwise enhances homogeneously and is not enlarged. KIDNEYS: The bilateral kidneys enhance symmetrically without hydronephrosis or renal calculi. ADRENAL GLANDS: Unremarkable. GASTROINTESTINAL TRACT: Colonic diverticulosis without surrounding inflammatory change. APPENDIX: The air-filled appendix is of normal caliber (axial series, images 89 through 112) VASCULATURE: Unremarkable. No aneurysmal dilatation or significant stenosis. LYMPH NODES: Limited evaluation secondary to motion artifact PELVIC STRUCTURES: The bladder is minimally distended, and demonstrates thickened jackson with surrounding inflammatory ch jose, for which cystitis is suspected. The prostate gland is not enlarged. BODY WALL AND MUSCULOSKELETAL: Small fat-containing bilateral inguinal hernias, right larger than left. No significant degenerative disease within the lower thoracic or lumbosacral spine. IMPRESSION: No pulmonary embolus. No aortic dissection. Findings suggesting pulmonary edema. Findings suggesting prior granulomatous disease Reviewed, dictated and finalized at location A.
--- NOTE | ~2024-07-14 | XR_ITS ---
EXAMINATION: XR chest 2V DATE: 07/14/2024 17:09 INDICATION: Shortness of breath. Weakness with exertion TECHNIQUE: PA and lateral views of the chest were obtained. COMPARISON: Chest radiograph dated 07/09/2024 FINDINGS: Resolution of prior pulmonary edema. Small calcified nodules in the left lower lung consistent with o ld granulomatous disease. No new airspace opacities, pleural effusion or pneumothorax. Cardiomegaly. Mild thoracic spondylosis. IMPRESSION: 1. No acute cardiopulmonary disease with resolution of prior pulmonary edema. 2. Cardiomegaly. Reviewed, dictated and finalized at location A.
[2024-07-14 16:45] VITALS: BP 136/106; PULSE 103; RESP 32; TEMP 36.4; O2SAT 98
--- NOTE | 2024-07-14 16:48 | ECG_ITS ---
Test Date: 2024-07-14 16:51:56 Measurements Intervals [place] Rate: 108 P: 49 NM: 148 QRS: -24 QRSD: 115 T: 132 QT: 349 QTc: 468 Interpretive Statements SINUS TACHYCARDIA LEFT ATRIAL ENLARGEMENT LEFT VENTRICULAR HYPERTROPHY AND ST-T CHANGE BASELINE ARTIFACT- I, II, AVR, AVL BORDERLINE ECG Compared to ECG 07/09/2024 04:09:10 NO SIGNIFICANT CHANGE Electronically Signed On 07-14-2024 17:22:43 CDT by Malik Lee D.O.
--- OUTSIDE RECORDS SUMMARY | 2024-07-14 16:48 | XMS_ITS | Clinical Summary ---
Author Organization [facility] Address [address] [place] [address] Care Team Providers Care Molecular Modeler Name Role Phone Unavailable Primary Care Provider [...]
--- OUTSIDE RECORDS SUMMARY | 2024-07-14 16:49 | XMS_ITS | Referral Summary ---
Author Organization [facility] at the [facility] Address [address] [place] [address] Care Team Providers Care Mine Superintendent Name Role Phone Zion Gaspar MD Unavailable Lisa Kern Primary Care Provider + Encounters Date Type Department Care Team Description 06/09/2024 11:00 AM SAFETY GROOVING MACHINE OPERATOR Office Visit [facility] Medical [facility] Cardiology [address] [facility] [address] [place] [phone] Jill Lundberg NP Nonischemic cardiomyopathy (HCC) (Primary Dx) 05/24/2024 Orders Only [facility] Cardiology [address] [facility] [address] [place] [phone] Jill Lundberg NP 05/12/2024 Orders Only [facility] Cardiology [address] [facility] [address] [place] [phone] Patricia Lantigua MD from Last 3 Months [...] to cardiology Coronary artery disease invo lving [place] coronary artery of [place] heart without angina pectoris 12/12/2023 Assessment & [...] refilled today Patient needs referral to new chemical milling processor. Male hypogonadism 01/05/2020 Vitamin D deficiency 06/28/2019 [...] Tobacco: Never Tobacco Cessation:Counseling Given: Not Answered [facility] Utilities Answer Date Recorded In the past 12 months has [employer], gas, oil, or water [employer] threatened to shut off services in your [...] often do you attend chur ch or confucianist services? Never 12/12/2023 Do you belong to any clubs o r organizations such as congregational groups, unions, fraternal or athletic groups, or [...] any time in the past [address] [facility], were you homeless or living in a retirement (including now)? Yes 12/12/2023 Personal Safety Answer Date Recorded Have you ever been in or are you currently in a harmful physical or emotional relationship or is someone making you feel afraid or unsafe? Denies 02/13/2024 Sex and Gender Information Value Date Recorded Sex Assigned at Not on file Legal Sex Male 6:59 AM SAFETY GROOVING MACHINE OPERATOR Gender Identity Not on file Sexual Orientation Not on file Last Filed Vital Signs Vital Sign Reading Time Taken Comments Blood Pressure 140/100 06/09/2024 10:55 AM SAFETY GROOVING MACHINE OPERATOR Pulse 84 06/09/2024 10:55 AM SAFETY GROOVING MACHINE OPERATOR Temperature 36.4 C (97.6 F) 02/13/2024 7:14 AM CDT Respiratory Rate 19 02/13/2024 7:14 AM CDT Oxygen Saturation 99% 06/09/2024 10:55 AM SAFETY GROOVING MACHINE OPERATOR Inhaled Oxygen Concentration - - Weight 96.2 kg (212 lb) 06/09/2024 10:55 AM SAFETY GROOVING MACHINE OPERATOR Height 182.9 cm (6') 06/09/2024 10:55 AM SAFETY GROOVING MACHINE OPERATOR Body Mass Index 28.75 06/09/2024 10:55 AM SAFETY GROOVING MACHINE OPERATOR Plan of Treatment Not on file Procedures Procedure Name Priority Date/Time Associated Diagnosis Comments CARDIOLOGY DOCUMENT SCAN Routine 05/08/2024 9:38 AM SAFETY GROOVING MACHINE OPERATOR CARDIOLOGY DOCUMENT SCAN Routine 05/07/2024 5:13 PM SAFETY GROOVING MACHINE OPERATOR PSA SCREEN Routine 12/12/2023 10:00 AM CDT Screening PSA (prostate specific antigen) from Last 3 Months or Most Recently Relevant to Health Maintenance Results * Cardiology Document Scan (05/08/2024 9:38 AM SAFETY GROOVING MACHINE OPERATOR) Anatomical Region Laterality Modality Other Patricia Lantigua MD CV CARDIAC SERVICES PROCEDU RES Final Result * Cardiology Document Scan (05/07/2024 5:13 PM SAFETY GROOVING MACHINE OPERATOR) Anatomical Region Laterality Modality Other Jill [...] data last revised 21. Testing performed by: [facility], [address] [place] [address], [place]., [address] Blood 12/12/2023 10:0 0 AM CDT 12/12/2023 12:16 PM CDT us Lisa JACINTO LAB BLOOD ORDERABLES Fin al Result MARINO [address] [facility] [place] [address] from Last 3 Months or Most Recently Relevant to Health Maintenance [facility] [place] MEDICARE [facility] Advance Directives For more information, please contact: [phone] * Full Code (Latest Code Status on File) Date Activated Date Inactivated Comments 11/03/2023 4:46 PM 11/06/2023 6:41 PM * Full Code Date Activated Date Inactivated Comments 07/18/2023 11:06 AM 07/19/2023 7:36 PM Care Teams Mine Superintendent Relationship Specialty Start Date End Date Lisa Kern PA [address] [facility] [address] [place], [place] [id number] PCP - General Family Medicine 12/12/23 [place] [id number] [address] Consulting Physician Cardiovascular Disease 07/19/23
--- OUTSIDE RECORDS SUMMARY | 2024-07-14 16:49 | XMS_ITS | Encounter Summary ---
Author Organization [facility] Healthcare Address [address] [place] [address] Care Team Providers Care Ham Doctor Name Role Phone Emre Andrade MD Primary Care Provider [phone] Zion Gaspar MD Unavailable Lisa Kern Primary Care Provider + Encounter Details Date Type Department Care Team (Late st Contact Info) Description 07/16/2023 Telephone [facility] Social Work [address] [place] [address] Melly Oleary MSW Social History [...] on file Legal Sex Male 6:59 AM PARTS IDENTIFICATION TECHNICIAN Gender Identity Not on file Sexual Orientation [...] documented as of this encounter Care Teams Ham Doctor Relationship Specialty Start Date End Date Emre Andrade MD PCP - General Emergency Medicine 10/19/21 12/11/23 Lisa Kern PA [address] [facility] [address] [place] [address] PCP - General Family Medicine 12/12/23 [place] [id number] [address] Consulting Physician Cardiovascular Disease 07/19/23 documented as of this encounter
--- OUTSIDE RECORDS SUMMARY | 2024-07-14 16:49 | XMS_ITS | Clinical Summary ---
Author Organization [facility] at [facility] Office Center Address [address] [place] [address] Care Team Providers Care Manager Education Name Role Phone Zion Gaspar MD Unavailable [...] to cardiology Coronary artery disease invo lving [place] coronary artery of [place] heart without angina pectoris 12/12/2023 Assessment & [...] refilled today Patient needs referral to new fiberglass tube molder. Male hypogonadism 01/05/2020 Vitamin D deficiency 06/28/2019 [...] Department Care Team Description 06/09/2024 11:00 AM FOUNDRY MANAGER Office Visit [facility] Medical [facility] Cardiology [address] [facility] [address] [place] [address] Jill Lundberg NP Nonischemic cardiomyopathy (HCC) (Primary Dx) 05/24/2024 Orders Only [facility] Cardiology [address] [facility] [address] [place] [phone] Jill Lundberg NP 05/12/2024 Orders Only [facility] Cardiology [address] [facility] [address] [place] [address] Patricia Lantigua MD from Last 3 Months [...] Tobacco: Never Tobacco Cessation:Counseling Given: Not Answered [facility] Utilities Answer Date Recorded In the past 12 months has e [employer], gas, oil, or water [employer] threatened to shut off services in your [...] often do you attend chur ch or restoration services? Never 12/12/2023 Do you belong to any clubs o r organizations such as synagogue groups, unions, fraternal or athletic groups, or [...] any time in the past 12 m [facility], were you homeless or living in a snf (including now)? Yes 12/12/2023 Personal Safety Answer Date Recorded Have you ever been in or are you currently in a harmful physical or emotional relationship or is someone making you feel afraid or unsafe? Denies 02/13/2024 Sex and Gender Information Value Date Recorded Sex Assigned at Not on file Legal Sex Male 6:59 AM FOUNDRY MANAGER Gender Identity Not on file Sexual Orientation Not on file Obstetrics History Last Filed Vital Signs Vital Sign Reading Time Taken Comments Blood Pressure 140/100 06/09/2024 10:55 AM FOUNDRY MANAGER Pulse 84 06/09/2024 10:55 AM FOUNDRY MANAGER Temperature 36.4 C (97.6 F) 02/13/2024 7:14 AM CDT Respiratory Rate 19 02/13/2024 7:14 AM CDT Oxygen Saturation 99% 06/09/2024 10:55 AM FOUNDRY MANAGER Inhaled Oxygen Concentration - - Weight 96.2 kg (212 lb) 06/09/2024 10:55 AM FOUNDRY MANAGER Height 182.9 cm (6') 06/09/2024 10:55 AM FOUNDRY MANAGER Body Mass Index 28.75 06/09/2024 10:55 AM FOUNDRY MANAGER Plan of Treatment Health Maintenance Due Date [...] CARDIOLOGY DOCUMENT SCAN Routine 05/08/2024 9:38 AM FOUNDRY MANAGER CARDIOLOGY DOCUMENT SCAN Routine 05/07/2024 5:13 PM FOUNDRY MANAGER PSA SCREEN Routine 12/12/2023 10:00 AM CDT Screening PSA (prostate specific antigen) from Last 3 Months or Most Recently Relevant to Health Maintenance Results * Cardiology Document Scan (05/08/2024 9:38 AM FOUNDRY MANAGER) Anatomical Region Laterality Modality Other Patricia Lantigua MD CV CARDIAC SERVICES PROCEDU RES Final Result * Cardiology Document Scan (05/07/2024 5:13 PM FOUNDRY MANAGER) Anatomical Region Laterality Modality Other Jill Lundberg [...] data last revised 21. Testing performed by: [facility], [address] [place] [address]., [address] Blood 12/12/2023 10:0 0 AM CDT 12/12/2023 12:16 PM CDT Lisa JACINTO LAB BLOOD ORDERABLES Fin al Result MARINO [address] [facility] Department [place] [address] from Last 3 Months or Most Recently Relevant to Health Maintenance Insurance [employer] [place] MEDICARE [place] MEDICARE ID[place] Advance Directives For more information, please contact: [phone] * Full Code (Latest Code Status on File) Date Activated Date Inactivated Comments 11/03/2023 4:46 PM 11/06/2023 6:41 PM * Full Code Date Activated Date Inactivated Comments 07/18/2023 11:06 AM 07/19/2023 7:36 PM Care Teams Manager Education Relationship Specialty Start Date End Date Lisa Kern PA [address] [facility] [address] [place] [address] PCP - General Family Medicine 12/12/23 [place] [address] [address] [facility] [place] [address] Consulting Physician Cardiovascular Disease 07/19/23
--- OUTSIDE RECORDS SUMMARY | 2024-07-14 16:49 | XMS_ITS | CONTINUITY OF CARE DOCUMENT ---
Author Name yareliskyara maci Address Unknown Organization [facility] Address [address] [facility] [address] [place] [address] Phone [phone] Care Team Providers Care Dray Driver Name Role Phone Zion Gaspar MD Unavailable [phone] RICO ROBERSON MD Unavailable [phone] PROBLEMS Condition Status Date Provider Notes Cardiology examination active Zion Richmond CHF active Zion Gaspar MD Shortness of breath active Zion Gaspar MD COPD active Zion Gaspar MD ENCOUNTERS Date Type Provider Location Encounter Diag nosis - In-person encounter Office Visit Zion Gaspar MD [facility] Cardiology examinationCHFShortness of breathCOPD VITAL SIGNS [...] Payer name Policy type / Coverage type [place]IC[place] B Medicare [id number] [facility] Medicaid 2 [id number] ADVANCE DIRECTIVES Name Date DISCUSSED - NO DECISION MADE TREATMENT PLAN Date Name Performer Cardiology Riccardo Chatman Cardiology: H is updated medication list for this problem includes: Carvedilol 6.25 Mg Tablet (Carvedilol) ..... Take 1 tablet by mouth twice a day Furosemide 20 Mg Tablet (Furosemide) ..... Take 1 tablet by mouth once a day Riccardo Chatman Cardiology:Pt had re cent admission to [facility] with new onset CHF. Per pt, he [...]
[2024-07-14 17:02] LABS: Basophils Absolute Auto 0.1 K/mm3 (0.0-0.1); Basophils Percent Auto 1.2 % (0.2-1.2); Eosinophils Absolute Auto 0.2 K/mm3 (0-0.3); Eosinophils Percent Auto 1.9 % (0-4.4); Hematocrit 45.1 % (42.0-52.0); Hemoglobin 14.3 g/dL (14.0-18.0); Immature Granulocyte Absolute 0.03 K/mm3 (0.00-0.031); Immature Granulocyte Percent A 0.3 % (0-0.5); Lymphocytes Absolute Auto 2.64 K/mm3 (0.9-3.2); Lymphocytes Percent Auto 28.4 % (18.3-44.2); Mean Corpuscular HGB Conc 31.7 g/dl (32-36); Mean Corpuscular Hemoglobin 31.5 pg (26-34); Mean Corpuscular Volume 99.3 fl (80-100); Monocytes Absolute Auto 0.8 K/mm3 (0.1-0.6); Monocytes Percent Auto 8.3 % (2.6-8.5); Neutrophils Absolute Auto 5.6 K/mm3 (1.3-6.7); Neutrophils Percent Auto 59.9 % (45.5-73.1); Platelet Count Result 267 k/mm3 (150-375); Red Blood Count 4.54 M/mm3 (4.6-6.20); Red Cell Distribution Width 16.4 % (11.5-14.5); White Blood Count 9.3 K/mm3 (4.5-10.0)
[2024-07-14 17:12] LABS: INR 1.6; Prothrombin Time 19.6 Seconds (11.1-14.7)
[2024-07-14 17:13] LABS: Partial Thromboplastin Time 33.1 Seconds (22.3-36.8)
[2024-07-14 17:14] LABS: Alanine Aminotransferase 506 U/L (6-50); Albumin Level 4.2 g/dL (3.5-5.1); Alkaline Phosphatase 101 U/L (38-126); Anion Gap 14 mmol/L (4-12); Aspartate Amino Transferase 483 U/L (17-59); Bilirubin,Total 2.5 mg/dL (0.2-1.3); Blood Urea Nitrogen 40 mg/dL (9-20); Carbon Dioxide 20 mmol/L (22-30); Chloride 103 mmol/L (98-107); Estimated CRCL calculation 40 ml/min; Estimated Glomerular Filt Rate 38; Glucose 105 mg/dL (65-110); Potassium 4.7 mmol/L (3.4-5.0); Sodium 137 mmol/L (137-145)
--- OUTSIDE RECORDS SUMMARY | 2024-07-14 17:25 | XMS_ITS | Clinical Summary ---
Author Organization [facility] Address [address] [place] [address] Care Team Providers Care Tree Expert Name Role Phone Unavailable Primary Care Provider [...]
--- OUTSIDE RECORDS SUMMARY | 2024-07-14 17:25 | XMS_ITS | Referral Summary ---
Author Organization [facility] at the [facility] Office Center Address [address] [place] [address] Care Team Providers Care Want Ad Receiver Name Role Phone Zion Gaspar MD Unavailable Lisa Kern Primary Care Provider + Encounters Date Type Department Care Team Description 06/09/2024 11:00 AM FILE CLERK DATA ENTRY Office Visit [facility] Medical [facility] Cardiology [address] [facility] [address] [place] [phone] Jill Lundberg NP Nonischemic cardiomyopathy (HCC) (Primary Dx) 05/24/2024 Orders Only [facility] Cardiology [address] [facility] [address] [place] [phone] Jill Lundberg NP 05/12/2024 Orders Only [facility] Cardiology [address] [facility] [address] [place] [phone] Patricia Lantigua MD from Last 3 Months [...] to cardiology Coronary artery disease invo lving [place] coronary artery of [place] heart without angina pectoris 12/12/2023 Assessment & [...] refilled today Patient needs referral to new doctor naturopathic. Male hypogonadism 01/05/2020 Vitamin D deficiency 06/28/2019 [...] Tobacco: Never Tobacco Cessation:Counseling Given: Not Answered [facility] Utilities Answer Date Recorded In the past 12 months has [employer], gas, oil, or water [employer] threatened to shut off services in your [...] often do you attend chur ch or spiritism services? Never 12/12/2023 Do you belong to any clubs o r organizations such as anabaptism groups, unions, fraternal or athletic groups, or [...] any time in the past 12 m [facility], were you homeless or living [...] on file Legal Sex Male 6:59 AM FILE CLERK DATA ENTRY Gender Identity Not on file Sexual Orientation Not on file Last Filed Vital Signs Vital Sign Reading Time Taken Comments Blood Pressure 140/100 06/09/2024 10:55 AM FILE CLERK DATA ENTRY Pulse 84 06/09/2024 10:55 AM FILE CLERK DATA ENTRY Temperature 36.4 C (97.6 F) 02/13/2024 7:14 AM CDT Respiratory Rate 19 02/13/2024 7:14 AM CDT Oxygen Saturation 99% 06/09/2024 10:55 AM FILE CLERK DATA ENTRY Inhaled Oxygen Concentration - - Weight 96.2 kg (212 lb) 06/09/2024 10:55 AM FILE CLERK DATA ENTRY Height 182.9 cm (6') 06/09/2024 10:55 AM FILE CLERK DATA ENTRY Body Mass Index 28.75 06/09/2024 10:55 AM FILE CLERK DATA ENTRY Plan of Treatment Not on file Procedures Procedure Name Priority Date/Time Associated Diagnosis Comments CARDIOLOGY DOCUMENT SCAN Routine 05/08/2024 9:38 AM FILE CLERK DATA ENTRY CARDIOLOGY DOCUMENT SCAN Routine 05/07/2024 5:13 PM FILE CLERK DATA ENTRY PSA SCREEN Routine 12/12/2023 10:00 AM CDT Screening PSA (prostate specific antigen) from Last 3 Months or Most Recently Relevant to Health Maintenance Results * Cardiology Document Scan (05/08/2024 9:38 AM FILE CLERK DATA ENTRY) Anatomical Region Laterality Modality Other Patricia Lantigua MD CV CARDIAC SERVICES PROCEDU RES Final Result * Cardiology Document Scan (05/07/2024 5:13 PM FILE CLERK DATA ENTRY) Anatomical Region Laterality Modality Other Jill Lundberg [...] revised 21. Testing performed by: [facility], [address] [place] [address], [place]., [address] Blood 12/12/2023 10:0 0 AM CDT 12/12/2023 12:16 PM CDT us Lisa JACINTO LAB BLOOD ORDERABLES Fin al Result MARINO [address] [facility] [place] [address] from Last 3 Months or Most Recently Relevant to Health Maintenance [facility] [place] MEDICARE [facility] Advance Directives For more information, please contact: [phone] * Full Code (Latest Code Status on File) Date Activated Date Inactivated Comments 11/03/2023 4:46 PM 11/06/2023 6:41 PM * Full Code Date Activated Date Inactivated Comments 07/18/2023 11:06 AM 07/19/2023 7:36 PM Care Teams Want Ad Receiver Relationship Specialty Start Date End Date Lisa Kern PA [address] [facility] [address] [place], [place] [id number] PCP - General Family Medicine 12/12/23 [place] [id number] [address] Consulting Physician Cardiovascular Disease 07/19/23
--- OUTSIDE RECORDS SUMMARY | 2024-07-14 17:25 | XMS_ITS | Clinical Summary ---
Author Organization [facility] at [facility] Office Center Address [address] [place] [address] Care Team Providers Care Senior Database Administrator Name Role Phone Zion Gaspar MD [...] to cardiology Coronary artery disease invo lving [place] coronary artery of [place] heart without angina pectoris 12/12/2023 Assessment & [...] refilled today Patient needs referral to new home health lvn. Male hypogonadism 01/05/2020 Vitamin D deficiency 06/28/2019 [...] Department Care Team Description 06/09/2024 11:00 AM GRADER PATROL Office Visit [facility] Medical [facility] Cardiology [address] [facility] [address] [place] [address] Jill Lundberg NP Nonischemic cardiomyopathy (HCC) (Primary Dx) 05/24/2024 Orders Only [facility] Cardiology [address] [facility] [address] [place] [phone] Jill Lundberg NP 05/12/2024 Orders Only [facility] Cardiology [address] [facility] [address] [place] [address] Patricia Lantigua MD from Last 3 Months [...] Tobacco: Never Tobacco Cessation:Counseling Given: Not Answered [facility] Utilities Answer Date Recorded In the past 12 months has e [employer], gas, oil, or water [employer] threatened to shut off services in your [...] often do you attend chur ch or pentecostal services? Never 12/12/2023 Do you belong to any clubs o r organizations such as hoahaoism groups, unions, fraternal or athletic groups, or [...] time in the past [address] [facility], were you homeless or living in a long term (including now)? Yes 12/12/2023 Personal Safety Answer Date Recorded Have you ever been in or are you currently in a harmful physical or emotional relationship or is someone making you feel afraid or unsafe? Denies 02/13/2024 Sex and Gender Information Value Date Recorded Sex Assigned at Not on file Legal Sex Male 6:59 AM GRADER PATROL Gender Identity Not on file Sexual Orientation Not on file Obstetrics History Last Filed Vital Signs Vital Sign Reading Time Taken Comments Blood Pressure 140/100 06/09/2024 10:55 AM GRADER PATROL Pulse 84 06/09/2024 10:55 AM GRADER PATROL Temperature 36.4 C (97.6 F) 02/13/2024 7:14 AM CDT Respiratory Rate 19 02/13/2024 7:14 AM CDT Oxygen Saturation 99% 06/09/2024 10:55 AM GRADER PATROL Inhaled Oxygen Concentration - - Weight 96.2 kg (212 lb) 06/09/2024 10:55 AM GRADER PATROL Height 182.9 cm (6') 06/09/2024 10:55 AM GRADER PATROL Body Mass Index 28.75 06/09/2024 10:55 AM GRADER PATROL Plan of Treatment Health Maintenance Due Date [...] CARDIOLOGY DOCUMENT SCAN Routine 05/08/2024 9:38 AM GRADER PATROL CARDIOLOGY DOCUMENT SCAN Routine 05/07/2024 5:13 PM GRADER PATROL PSA SCREEN Routine 12/12/2023 10:00 AM CDT Screening PSA (prostate specific antigen) from Last 3 Months or Most Recently Relevant to Health Maintenance Results * Cardiology Document Scan (05/08/2024 9:38 AM GRADER PATROL) Anatomical Region Laterality Modality Other Patricia Lantigua MD CV CARDIAC SERVICES PROCEDU RES Final Result * Cardiology Document Scan (05/07/2024 5:13 PM GRADER PATROL) Anatomical Region Laterality Modality Other Jill Lundberg [...] revised 21. Testing performed by: [facility], [address] [place] [address]., [address] Blood 12/12/2023 10:0 0 AM CDT 12/12/2023 12:16 PM CDT Lisa JACINTO LAB BLOOD ORDERABLES Fin al Result MARINO [address] [facility] Department [place] [address] from Last 3 Months or Most Recently Relevant to Health Maintenance Insurance [employer] [place] MEDICARE [place] MEDICARE IDPA Advance Directives For more information, please contact: [phone] * Full Code (Latest Code Status on File) Date Activated Date Inactivated Comments 11/03/2023 4:46 PM 11/06/2023 6:41 PM * Full Code Date Activated Date Inactivated Comments 07/18/2023 11:06 AM 07/19/2023 7:36 PM Care Teams Senior Database Administrator Relationship Specialty Start Date End Date Lisa Kern PA [address] [facility] [address] [place] [address] PCP - General Family Medicine 12/12/23 [place] [address] [address] [place] [address] Consulting Physician Cardiovascular Disease 07/19/23
--- OUTSIDE RECORDS SUMMARY | 2024-07-14 17:25 | XMS_ITS | Encounter Summary ---
Author Organization [facility] Healthcare Address [address] [place] [address] Care Team Providers Care Erp Implementation Consultant Name Role Phone Emre Andrade MD Primary Care Provider [phone] Zion Gaspar MD Unavailable Lisa Kern Primary Care Provider + Encounter Details Date Type Department Care Team (Late st Contact Info) Description 07/16/2023 Telephone [facility] Social Work [address] [place] [address] Melly Oleary MSW Social History [...] on file Legal Sex Male 6:59 AM TELEPHONE SOLICITOR Gender Identity Not on file Sexual Orientation [...] documented as of this encounter Care Teams Erp Implementation Consultant Relationship Specialty Start Date End Date Emre Andrade MD PCP - General Emergency Medicine 10/19/21 12/11/23 Lisa Kern PA [address] [facility] [address] [place] [address] PCP - General Family Medicine 12/12/23 [place] [address] [address] Consulting Physician Cardiovascular Disease 07/19/23 documented as of this encounter
--- OUTSIDE RECORDS SUMMARY | 2024-07-14 17:25 | XMS_ITS | CONTINUITY OF CARE DOCUMENT ---
Author Name yareliskyara maci Address Unknown Organization [facility] [address] Address [address] [place] [address] Phone [phone] Care Team Providers Care Floral Merchandiser Name Role Phone Zion Gaspar MD Unavailable [phone] RICO ROBERSON MD Unavailable [phone] PROBLEMS Condition Status Date Provider Notes Cardiology examination active Zion Richmond CHF active Zion Gaspar MD Shortness of breath active Zion Gaspar MD COPD active Zion Gaspar MD ENCOUNTERS Date Type Provider Location Encounter Diag nosis - In-person encounter Office Visit Zion Gaspar MD [place] [facility] Cardiology examinationCHFShortness of breathCOPD VITAL SIGNS [...] Payer name Policy type / Coverage type [employer] [place] [employer] party [place] Medicare [id number] [facility] Medicaid 2 [id number] ADVANCE DIRECTIVES Name Date DISCUSSED - NO DECISION MADE TREATMENT PLAN Date Name Performer Cardiology Riccardo Chatman Cardiology: H is updated medication list for this problem includes: Carvedilol 6.25 Mg Tablet (Carvedilol) ..... Take 1 tablet by mouth twice a day Furosemide 20 Mg Tablet (Furosemide) ..... Take 1 tablet by mouth once a day Riccardo Chatman Cardiology:Pt had re cent admission to [facility] with new onset CHF. Per pt, [...]
[2024-07-14 17:28] LABS: NT Pro B Type Natriuretic Pept 15900 pg/mL (19.9-100); Troponin I 0.039 ng/mL (0.000-0.034)
[2024-07-14 17:55] LABS: Lipase 98 U/L (23-300)
--- NOTE | 2024-07-14 18:25 | ED_ITS ---
HPI - SOB/Dyspnea General Chief Complaint: Shortness of Breath/Dyspnea Stated Complaint: heart failure Time Seen by Provider: 07/14/24 17:16 Source: patient Mode of arrival: ambulatory Limitations: no limitations History of Present Illness HPI Narrative: This is a 69 year old male that presents to the ER for shortness of breath, lower extremity edema. Worsening over the last several days. Worse with lying flat. Reports he also feels dehydrated. Reports history of CHF. Related Data Home Medications ?Medication ?Instructions ?Recorded ?Confirmed ?Last Taken ?Type aspirin 81 mg tablet 81 mg PO DAILY 03/06/24 05/27/24 Unknown History Allergies Allergy/AdvReac Type Severity Reaction Status Date / Time Sulfa (Sulfonamide Allergy Mild Itching Verified 07/09/24 03:56 Antibiotics) Review of Systems 2 Review of Systems: CONSTITUTIONAL: Denies fever CARDIOVASCULAR: Reports chest pain, edema. RESPIRATORY: Reports dyspnea. GASTROINTESTINAL: Denies abdominal pain, nausea, vomiting All systems reviewed & are unremarkable except as noted in HPI and below PMFSH Past Medical History Medical History Severe chronic obstructive pulmonary disease With good response to bronchodilator noted on PFTs 10/2020 Toe fracture, left multiple toes Bronchitis Nose fracture Surgical History Surgical History History of tonsillectomy Family History Family History (Updated 05/27/24 @ 14:28 by Lashae Marcano APRN) Mother , in her 80s Diabetes mellitus Lung cancer COPD (chronic obstructive pulmonary disease) Father , at 83 years old Acute myocardial infarction Biventricular ICD (implantable cardioverter-defibrillator) in place COPD (chronic obstructive pulmonary disease) Sibling Lung cancer Social History Social History Social History: Patient was 3 times. His last between 3 and 5 years ago cancer. He then had a girlfriend who also developed cancer and in August of 2022. 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 He briefly smoked when he was younger. He denies any significant alcohol use. He denies any illicit substance use. Code status: DNR/DNI (per patient request) The patient reports he does not have a surrogate decision maker and has no family members left. He does not have any friends he feels close enough to ask to make that type of decision. Years smoked: 5 Smoking status: Never smoker Alcohol intake: never Substance use: former Substance use type: marijuana Do You Feel Safe in your Home?: Yes Lack of Transportation: YES Lack of Food: Often True Current Housing: I Do Not Have Housing Concerned About Future Housing: YES Difficulty Paying Gas/Electric Bills: No Difficulty Paying for Meds: YES Currently Unemployed: No Education: Decline to Answer Difficulty w/ Childcare or Family Care: No Gender identity (if verbalized by the patient): Male Spiritual care concerns: No Exam 2 Narrative: GENERAL: Well-appearing, well-nourished, and in no acute distress. HEAD: Normocephalic, atraumatic. EYES: EOMI. ENT: Nares clear, no rhinorrhea or epistaxis. Mucous membranes moist. Oropharynx without tonsillar hypertrophy exudate or other lesions. Bilateral TMs pearly acevedo non-bulging NECK: Supple. No adenopathy or masses. CHEST: Clear to auscultation. No respiratory distress. No wheezes rales or rhonchi HEART: Regular rate and rhythm. No murmur heard. Normal peripheral pulses. ABDOMEN: Soft, nontender, nondistended, normal active bowel sounds. EXTREMITIES: Normal range of motion. Non pitting edema to the bilateral lower extremities. Normal DP pulses SKIN: Warm, dry, no rash. NEURO: No focal deficits. Alert and oriented x3. PSYCH: Normal mood and affect Course Consultations Consultation #1: Spoke with hospitalist about patient and workup who accepts admission Date: 07/14/24 Vital Signs Vital signs: Vital Signs Temperature 97.6 F 07/14/24 16:45 Pulse Rate 103 H 07/14/24 16:45 Respiratory Rate 32 H 07/14/24 16:45 Blood Pressure 136/106 H 07/14/24 16:45 Pulse Oximetry 98 07/14/24 16:45 Temperature 97.6 F 07/14/24 16:45 Pulse Rate 99 07/14/24 20:55 Respiratory Rate 14 07/14/24 20:55 Blood Pressure 139/100 H 07/14/24 20:55 Pulse Oximetry 99 07/14/24 21:10 Oxygen Delivery Room Air 07/14/24 21:10 MDM - SOB/Dyspnea MDM Narrative Medical decision making narrative: Patient presents the emergency department for dyspnea, worse with lying flat. History of CHF. Mildly tachycardic upon arrival, this normalized without intervention. CBC without concerning findings. Metabolic panel with elevation of creatinine from baseline. Bicarb is 20, anion gap of 14. Transaminitis with AST of 483, ALT 0506. Total bili is 2.5. Lipase is normal. Drug screen positive for amphetamines. Troponins are elevated, but flat. BNP 15,900. CTA chest abdomen and pelvis obtained. No PE or aortic dissection. Findings suggesting pulmonary edema. Patient will be admitted for further management. Spoke with hospitalist about patient and workup who accepts admission Differential Diagnosis Differential diagnosis: Likely acute exacerbation of chronic obstructive airways disease, congestive heart failure, community acquired pneumonia and pulmonary embolism Lab Data Attestation: I reviewed the patient's lab results. 07/14/24 16:54 07/14/24 16:54 Labs: Lab Results 07/14/24 07/14/24 07/14/24 Range/Units 16:53 16:54 20:56 WBC 9.3 (4.5-10.0) K/mm3 RBC 4.54 L (4.6-6.20) M/mm3 Hgb 14.3 (14.0-18.0) g/dL Hct 45.1 (42.0-52.0) % MCV 99.3 (80-100) fl MCH 31.5 (26-34) pg MCHC 31.7 L (32-36) g/dl RDW 16.4 H (11.5-14.5) % Plt Count 267 (150-375) k/mm3 MPV 10.0 (7.4-10.4) fl Immature Gran % (Auto) 0.3 (0-0.5) % Neut % (Auto) 59.9 (45.5-73.1) % Lymph % (Auto) 28.4 (18.3-44.2) % Dupage % (Auto) 8.3 (2.6-8.5) % Eos % (Auto) 1.9 (0-4.4) % Baso % (Auto) 1.2 (0.2-1.2) % Lymph # (Auto) 2.64 (0.9-3.2) K/mm3 Dupage # (Auto) 0.8 H (0.1-0.6) K/mm3 Eos # (Auto) 0.2 (0-0.3) K/mm3 Baso # (Auto) 0.1 (0.0-0.1) K/mm3 Abs Immat Gran (auto) 0.03 (0.00-0.031) K/mm3 Absolute Neuts (auto) 5.6 (1.3-6.7) K/mm3 Absolute Nucleated RBC 0.000 (0.0-0.012) K/mm3 Nucleated RBC % 0.0 (0.0-0.2) % PT 19.6 H (11.1-14.7) Seconds INR 1.6 APTT 33.1 (22.3-36.8) Seconds Sodium 137 (137-145) mmol/L Potassium 4.7 (3.4-5.0) mmol/L Chloride 103 (98-107) mmol/L Carbon Dioxide 20 L (22-30) mmol/L Anion Gap 14 H (4-12) mmol/L BUN 40 H (9-20) mg/dL Creatinine 1.79 H (0.7-1.3) mg/dL Estim Creat Clear Calc 40 ml/min Estimated GFR 38 L (59 - ) Glucose 105 (65-110) mg/dL Calcium 9.0 (8.4-10.2) mg/dL Total Bilirubin 2.5 H (0.2-1.3) mg/dL AST 483 H (17-59) U/L ALT 506 H (6-50) U/L Alkaline Phosphatase 101 (38-126) U/L Total Creatine Kinase 393 H (55-170) U/L Troponin I 0.039 H* (0.000-0.034) ng/mL NT-Pro-B Natriuret Pep 08304 H (19.9-100) pg/mL Total Protein 8.0 (6.3-8.2) g/dL Albumin 4.2 (3.5-5.1) g/dL Lipase 98 (23-300) U/L Urine Opiates Screen Negative (Negative) Urine Methadone Screen Negative (Negative) Ur Barbiturates Screen Negative (Negative) Ur Phencyclidine Scrn Negative (Negative) Ur Amphetamine Screen Positive A (Negative) U Benzodiazepines Scrn Negative (Negative) Urine Cocaine Screen Negative (Negative) U Cannabinoids Screen Negative (Negative) 07/14/24 Range/Units 21:29 WBC (4.5-10.0) K/mm3 RBC (4.6-6.20) M/mm3 Hgb (14.0-18.0) g/dL Hct (42.0-52.0) % MCV (80-100) fl MCH (26-34) pg MCHC (32-36) g/dl RDW (11.5-14.5) % Plt Count (150-375) k/mm3 MPV (7.4-10.4) fl Immature Gran % (Auto) (0-0.5) % Neut % (Auto) (45.5-73.1) % Lymph % (Auto) (18.3-44.2) % Dupage % (Auto) (2.6-8.5) % Eos % (Auto) (0-4.4) % Baso % (Auto) (0.2-1.2) % Lymph # (Auto) (0.9-3.2) K/mm3 Dupage # (Auto) (0.1-0.6) K/mm3 Eos # (Auto) (0-0.3) K/mm3 Baso # (Auto) (0.0-0.1) K/mm3 Abs Immat Gran (auto) (0.00-0.031) K/mm3 Absolute Neuts (auto) (1.3-6.7) K/mm3 Absolute Nucleated RBC (0.0-0.012) K/mm3 Nucleated RBC % (0.0-0.2) % PT (11.1-14.7) Seconds INR APTT (22.3-36.8) Seconds Sodium (137-145) mmol/L Potassium (3.4-5.0) mmol/L Chloride (98-107) mmol/L Carbon Dioxide (22-30) mmol/L Anion Gap (4-12) mmol/L BUN (9-20) mg/dL Creatinine (0.7-1.3) mg/dL Estim Creat Clear Calc ml/min Estimated GFR (59 - ) Glucose (65-110) mg/dL Calcium (8.4-10.2) mg/dL Total Bilirubin (0.2-1.3) mg/dL AST (17-59) U/L ALT (6-50) U/L Alkaline Phosphatase (38-126) U/L Total Creatine Kinase (55-170) U/L Troponin I 0.041 H* (0.000-0.034) ng/mL NT-Pro-B Natriuret Pep (19.9-100) pg/mL Total Protein (6.3-8.2) g/dL Albumin (3.5-5.1) g/dL Lipase (23-300) U/L Urine Opiates Screen (Negative) Urine Methadone Screen (Negative) Ur Barbiturates Screen (Negative) Ur Phencyclidine Scrn (Negative) Ur Amphetamine Screen (Negative) U Benzodiazepines Scrn (Negative) Urine Cocaine Screen (Negative) U Cannabinoids Screen (Negative) Imaging Data Radiologist's impression: ITS Impressions Chest X-Ray 07/14/24 17:17 IMPRESSION: 1. No acute cardiopulmonary disease with resolution of prior pulmonary edema. 2. Cardiomegaly. Chest/Abdomen/Pelvis CTA 07/14/24 20:05 IMPRESSION: No pulmonary embolus. No aortic dissection. Findings suggesting pulmonary edema. Findings suggesting prior granulomatous disease Critical Care Time Critical Care Time Critical Care Time: Yes Total Critical Care Time: 35 Discharge Plan Discharge Clinical Impression: Acute kidney injury, Transaminitis CHF exacerbation Qualifiers: Heart failure type: unspecified Qualified Code(s): I50.9 - Heart failure, unspecified Patient Disposition: Still a Patient Condition: Stable
[2024-07-14 18:47] VITALS: BP 131/109; PULSE 98; RESP 17; O2SAT 95
[2024-07-14 18:55] LABS: Creatine Kinase 393 U/L (55-170)
[2024-07-14] MEDS: FUROSEMIDE INJ 40 MG/4 ML VIAL IV PUSH (20:51)
[2024-07-14 20:55] VITALS: BP 139/100; PULSE 99; RESP 14; O2SAT 99
[2024-07-14 21:10] VITALS: O2SAT 99
[2024-07-14 21:19] LABS: Barbiturate Screen Urine Negative (Negative); Benzodiazepines Screen Urine Negative (Negative)
[2024-07-14 21:24] LABS: Cannabinoid Screen Urine Negative (Negative); Cocaine Screen Urine Negative (Negative); Methadone Screen Urine Negative (Negative); Opiate Screen Urine Negative (Negative); Phencyclidine Screen Urine Negative (Negative)
[2024-07-14 21:41] LABS: Amphetamine Screen Urine Positive (Negative)
[2024-07-14 21:58] LABS: Troponin I 0.041 ng/mL (0.000-0.034)
--- NOTE | 2024-07-14 22:16 | PM.IMHP ---
H&P: HPI History of Present Illness Date/Time: 07/14/24 22:16 Chief Complaint: Shortness of breath Narrative: 69-year-old male with a past medical history substance abuse, homelessness, COPD, exposure to asbestos per patient's self report, hypertension, nonischemic cardiomyopathy, heart failure reduced ejection fraction 30%. Patient experience worsening shortness of breath over 24 hours which prompted him to arrive to [place] ER. He was evaluated as well on 07/09 in the ER was given Lasix and sent home. He is noncompliant with medications. Reports severely increased leg swelling and abdominal swelling over the past few days. Upon evaluation in the ER he had mild tachycardia, tachypnea, both of these resolved after Lasix administration. Blood pressure 139/100. Serum creatinine 1.79 which is greater than is normal, AST 43, ALT 506, troponin 0.039 than 0.041, BNP 90482. Positive for amphetamines on drugs of abuse screen. Patient denies using such but admits smoking marijuana. He does have circumferential speech and fast speech. EKG without acute ischemia identified. Review of Systems Review of Systems: All systems reviewed & are unremarkable except as noted in HPI and below (HPI) [facility] Past Medical History Medical History Severe chronic obstructive pulmonary disease With good response to bronchodilator noted on PFTs 10/2020 Toe fracture, left multiple toes Bronchitis Nose fracture Surgical History Surgical History History of tonsillectomy Family History Family History (Updated 05/27/24 @ 14:28 by Lashae Marcano APRN) Mother , in her 80s Diabetes mellitus Lung cancer COPD (chronic obstructive pulmonary disease) Father , at 83 years old Acute myocardial infarction Biventricular ICD (implantable cardioverter-defibrillator) in place COPD (chronic obstructive pulmonary disease) Sibling Lung cancer Social History Social History Social History: Patient was 3 times. His last between 3 and 5 years ago cancer. He then had a girlfriend who also developed cancer and in August of 2022. 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 He briefly smoked when he was younger. He denies any significant alcohol use. He denies any illicit substance use. Code status: DNR/DNI (per patient request) The patient reports he does not have a surrogate decision maker and has no family members left. He does not have any friends he feels close enough to ask to make that type of decision. Years smoked: 5 Smoking status: Never smoker Alcohol intake: never Substance use: former Substance use type: marijuana Do You Feel Safe in your Home?: Yes Lack of Transportation: YES Lack of Food: Often True Current Housing: I Do Not Have Housing Concerned About Future Housing: YES Difficulty Paying Gas/Electric Bills: No Difficulty Paying for Meds: YES Currently Unemployed: No Education: Decline to Answer Difficulty w/ Childcare or Family Care: No Gender identity (if verbalized by the patient): Male Spiritual care concerns: No Meds Home Medications and Allergies Home Medications ?Medication ?Instructions ?Recorded ?Confirmed ?Type aspirin 81 mg tablet 81 mg PO DAILY 03/06/24 05/27/24 History albuterol sulfate 90 mcg/actuation 2 puff inhalation Q4H PRN 05/27/24 05/27/24 Rx aerosol inhaler Shortness Of Breath Or Wheezing #6.7 grams budesonide 160 mcg-glycopyr 9 2 inh inhalation BID #5.9 grams 05/27/24 05/27/24 Rx mcg-formot 4.8 mcg/actuation HFA inhaler (Breztri Aerosphere) carvedilol 6.25 mg tablet (Coreg) 6.25 mg PO Q12HR #60 tabs 05/27/24 05/27/24 Rx furosemide 20 mg tablet 40 mg (2 x 20 mg) PO DAILY #30 tabs 05/27/24 05/27/24 Rx sacubitril 24 mg-valsartan 26 mg 1 tablet PO Q12HR #60 tabs 05/27/24 05/27/24 Rx tablet (Entresto) Allergies Allergy/AdvReac Type Severity Reaction Status Date / Time Sulfa (Sulfonamide Allergy Mild Itching Verified 07/09/24 03:56 Antibiotics) Vital Signs Vital Signs - 24 hr 07/14/24 16:45 07/14/24 18:47 07/14/24 20:55 Temperature 97.6 F Pulse Rate 103 H 98 99 Respiratory Rate 32 H 17 14 Blood Pressure 136/106 H 131/109 H 139/100 H Pulse Oximetry 98 95 99 Oxygen Delivery 07/14/24 21:10 Temperature Pulse Rate Respiratory Rate Blood Pressure Pulse Oximetry 99 Oxygen Delivery Room Air Exam Const: General: comfortable and no acute distress Eyes: Pupils: Equal, round and reactive pupils present Neck: Neck: supple Resp: Effort & Inspection: normal respiratory effort Other: Bibasilar crackles Cardio: Rate: regular rate Rhythm: regular rhythm Heart sounds: no gallops, no murmurs and no rubs GI: GI Palp: Yes Soft to palpation and No Tenderness to palpation present (GI) Extrem: General: edema (Severe bilateral lower extremities below the knees) Psych: Affect: Anxious affect present H&P: Results Labs Labs: Short CBC 07/14/24 Range/Units 16:54 WBC 9.3 (4.5-10.0) K/mm3 Hgb 14.3 (14.0-18.0) g/dL Hct 45.1 (42.0-52.0) % Plt Count 267 (150-375) k/mm3 BMP 07/14/24 16:54 Sodium 137 Potassium 4.7 Chloride 103 Carbon Dioxide 20 L BUN 40 H Creatinine 1.79 H Glucose 105 Calcium 9.0 Cardiac Enzymes 07/14/24 07/14/24 07/14/24 Range/Units 16:53 16:54 21:29 Total Creatine Kinase 393 H (55-170) U/L Troponin I 0.039 H* 0.041 H* (0.000-0.034) ng/mL Liver Function 07/14/24 Range/Units 16:54 Total Bilirubin 2.5 H (0.2-1.3) mg/dL AST 483 H (17-59) U/L ALT 506 H (6-50) U/L Alkaline Phosphatase 101 (38-126) U/L Albumin 4.2 (3.5-5.1) g/dL Assessment and Plan Assessment and plan (1) Essential hypertension: Code(s): I10 - Essential (primary) hypertension Status: Acute (2) Medical non-compliance: Code(s): Z91.199 - Patient's noncompliance with other medical treatment and regimen due to unspecified reason Status: Acute (3) Acute exacerbation of CHF (congestive heart failure): Code(s): I50.9 - Heart failure, unspecified Status: Acute (4) Acute kidney injury: Code(s): N17.9 - Acute kidney failure, unspecified Status: Acute (5) Lower extremity edema: Code(s): R60.0 - Localized edema Status: Acute (6) Elevated troponin: Code(s): R79.89 - Other specified abnormal findings of blood chemistry Status: Acute Plan 69-year-old male with a past medical history substance abuse, homelessness, COPD, exposure to asbestos per patient's self report, hypertension, nonischemic cardiomyopathy, heart failure reduced ejection fraction 30%. Patient experience worsening shortness of breath over 24 hours which prompted him to arrive to [place] ER. He was evaluated as well on 07/09 in the ER was given Lasix and sent home. He is noncompliant with medications. Reports severely increased leg swelling and abdominal swelling over the past few days. Upon evaluation in the ER he had mild tachycardia, tachypnea, both of these resolved after Lasix administration. Blood pressure 139/100. Serum creatinine 1.79 which is greater than is normal, AST 43, ALT 506, troponin 0.039 than 0.041, BNP 09266. Positive for amphetamines on drugs of abuse screen. Patient denies using such but admits smoking marijuana. He does have circumferential speech and fast speech. EKG without acute ischemia identified. ----- Acute decompensated systolic congestive heart failure in part due to noncompliance. Continue with Lasix 40 mg IV b.i.d.. Strict intake and output. Trend troponins. Reassess renal function in the a.m after diuresis. Encourage compliance. Care coordination consult for abuse. Full code. SCDs. Saline lock IV. Heart healthy diet. Admission to PCU. Telemetry.
--- NOTE | 2024-07-14 23:03 | ADMGEN ---
This patient, Jeevan Castellanos, was admitted to Medical Room 251-01. Patient/family oriented to hospital policies and general routines including ID bracelet, bed and alarms, visiting hours, pain management, procedures, bathroom and other care routines, personal items, smoking policy, room service/diet, and visiting hours. Information on how to activate the Rapid Response Team has been discussed. Patient/Family are encouraged to report perceived risks to care and to ask questions if they do not understand what they are told or what they should do.
[2024-07-14 23:06] VITALS: PULSE 7
[2024-07-14 23:23] VITALS: BMI 29.0
[2024-07-15] VITALS (8 sets, daily range): BP systolic 90–137; BP diastolic 60–110; PULSE 59–111; RESP 16–18; TEMP 36.2–36.6; O2SAT 93–100
[2024-07-15 01:18] LABS: Troponin I 0.033 ng/mL (0.000-0.034)
[2024-07-15 05:11] LABS: Basophils Absolute Auto 0.1 K/mm3 (0.0-0.1); Basophils Percent Auto 0.9 % (0.2-1.2); Eosinophils Absolute Auto 0.3 K/mm3 (0-0.3); Eosinophils Percent Auto 3.2 % (0-4.4); Hematocrit 43.5 % (42.0-52.0); Hemoglobin 14.1 g/dL (14.0-18.0); Immature Granulocyte Absolute 0.02 K/mm3 (0.00-0.031); Immature Granulocyte Percent A 0.2 % (0-0.5); Lymphocytes Percent Auto 26.4 % (18.3-44.2); Mean Corpuscular HGB Conc 32.4 g/dl (32-36); Mean Corpuscular Hemoglobin 31.6 pg (26-34); Mean Corpuscular Volume 97.5 fl (80-100); Monocytes Absolute Auto 0.8 K/mm3 (0.1-0.6); Monocytes Percent Auto 8.3 % (2.6-8.5); Neutrophils Absolute Auto 5.6 K/mm3 (1.3-6.7); Platelet Count Result 243 k/mm3 (150-375); Red Blood Count 4.46 M/mm3 (4.6-6.20); Red Cell Distribution Width 16.4 % (11.5-14.5); White Blood Count 9.1 K/mm3 (4.5-10.0)
[2024-07-15 05:22] LABS: Anion Gap 12 mmol/L (4-12); Blood Urea Nitrogen 40 mg/dL (9-20); Calcium 9.1 mg/dL (8.4-10.2); Carbon Dioxide 23 mmol/L (22-30); Chloride 103 mmol/L (98-107); Estimated CRCL calculation 41 ml/min; Estimated Glomerular Filt Rate 40; Glucose 106 mg/dL (65-110); Potassium 3.8 mmol/L (3.4-5.0); Sodium 138 mmol/L (137-145)
--- NOTE | 2024-07-15 07:18 | PM.IMPN ---
Progress Note: A&P Assessment and Plan (1) Acute exacerbation of CHF (congestive heart failure): Code(s): I50.9 - Heart failure, unspecified Status: Acute Assessment and Plan: Acute decompensated systolic congestive heart failure in part due to noncompliance vs amphetamine use. - Evaluated on 07/09 in the ER was given Lasix and sent home. - Symptoms: shortness of breath, lower extremity edema and abdominal swelling - Current home medications (patient reports noncompliance): carvedilol 6.25 mg BID, lasix 40 mg daily, entresto 1 tablet BID - Continue carvedilol and entresto as prescribed, started on lasix 40 mg IV BID - BNP: 48573 - EKG: sinus tachycardia HR 108 - Chest XR: No acute cardiopulmonary disease with resolution of prior pulmonary edema. Cardiomegaly. - Chest/abdomen/pelvis CTA: No PE or aortic dissection. Findings suggesting pulmonary edema and granulomatous disease. - Echo 05/08/24: EF 55-60% Previous cath on 07/16/23 showing EF 30% with moderate pulmonary hypertension and global hypokinesis - Venous dopplers ordered - Monitor vital signs, I&Os, BUN/creatinine, daily weights, neuro status and patient is a fall risk - Monitor serum electrolytes, Keep serum Potassium>4 and serum Magnesium>2 and CBC (2) Acute kidney injury: Code(s): N17.9 - Acute kidney failure, unspecified Status: Acute Assessment and Plan: BUN/Cr 40/1.79 with GFR 38 on admission. Baseline appears WNL. - BUN/Cr 40/1.73 on am labs - Monitor I/O - Avoid nephrotoxic medications - Renally dose medications (3) Elevated troponin: Code(s): R79.89 - Other specified abnormal findings of blood chemistry Status: Acute Assessment and Plan: Likely related to demand ischemia secondary to heart failure exacerbation. - EKG without signs of infarction - Troponin peaked at 0.41, has since downtrended - Patient denies chest pain (4) Essential hypertension: Code(s): I10 - Essential (primary) hypertension Status: Acute Assessment and Plan: Chronic - Resumed patients carvedilol 6.25 mg BID and entresto 1 tablet daily - Continue lasix 40 mg IV BID - Monitor (5) Transaminitis: Code(s): R74.01 - Elevation of levels of liver transaminase levels Status: Acute Assessment and Plan: LFTs elevated on admission possibly related to patients substance abuse vs heart failure exacerbation - LFTs on admission: Tot bili 2.5, AST 483, ALT 506, alk phos 101 - Hepatitis panel negative (6) Substance abuse: Code(s): F19.10 - Other psychoactive substance abuse, uncomplicated Status: Acute Assessment and Plan: Patient states he eats meth. Denies injecting. Discussed with patient that continued drug use can worsen his heart failure and strongly encouraged cessation. UDS positive for amphetamines Care coordination consult for abuse. (7) Medical non-compliance: Code(s): Z91.199 - Patient's noncompliance with other medical treatment and regimen due to unspecified reason Status: Acute Assessment and Plan: Encourage medication compliance. Time Spent With Patient Time with patient: 25 - 35 minutes Subjective Date/time seen: 07/15/24 07:18 Interval history: 69-year-old male with a past medical history of substance abuse, homelessness, COPD, exposure to asbestos per patient's self report, hypertension, nonischemic cardiomyopathy, heart failure reduced ejection fraction 30%. Patient experience worsening shortness of breath over 24 hours which prompted him to arrive to [facility]. Patient is pleasant lying comfortably in bed. He states that his shortness of breath and lower extremity swelling has slightly improved since admission. He has no other complaints denying chest pain, palpitations, nausea/vomiting, abdominal pain. He states that he has not been taking any of his medications as he concerned about the adverse effects. Discussed with patient that the noncompliance with his medications is the cause of his current exacerbation. Patient also notes that he eats meth. Denies injecting. Discussed with patient that continued drug use can worsen his heart failure and strongly encouraged cessation. Review of Systems Review of Systems: All systems reviewed & are unremarkable except as noted in HPI and below Exam Narrative: AF 89 RR 18 Spo2 97 BP 133/100 General: male in no acute respiratory distress who is nontoxic appearing, sitting on the side of bed HEENT: Normocephalic. Atraumatic. Extraocular movement intact. Sclera clear and anicteric. No facial asymmetry. Chest: Lungs are slight crackles to auscultation bilaterally. No wheezes. CV: Heart was regular rate and rhythm. S1/S2. No murmurs, gallops, or rubs. Abd: Abdomen was soft. Nontender. Nondistended. Positive bowel sounds. Ext: No clubbing, cyanosis. Mild edema. DP pulses bilaterally. Neuro: Patient is alert and oriented x3. Speech is clear. Objective Data Vital Signs Vital Signs: Vital Signs - 24 hr 07/14/24 16:45 07/14/24 18:47 07/14/24 20:55 Temperature 97.6 F Pulse Rate 103 H 98 99 Respiratory Rate 32 H 17 14 Blood Pressure 136/106 H 131/109 H 139/100 H Pulse Oximetry 98 95 99 Oxygen Delivery 07/14/24 21:10 07/14/24 23:06 07/15/24 00:00 Temperature 98 F Pulse Rate 7 L 100 Respiratory Rate 18 Blood Pressure 137/68 Pulse Oximetry 99 98 Oxygen Delivery Room Air 07/15/24 00:05 07/15/24 04:00 07/15/24 04:00 Temperature 97.8 F Pulse Rate 111 H 66 89 Respiratory Rate 18 Blood Pressure 133/110 H Pulse Oximetry 97 Oxygen Delivery Intake/Output Intake/Output: Intake & Output 07/12/24 07/13/24 07/14/24 07/15/24 23:59 23:59 23:59 23:59 Intake Total 600 Output Total 300 Balance 300 Meds/Results Medications: Active Medications Generic Name Dose Route Start Last Admin Trade Name Freq PRN Reason Stop Dose Admin Furosemide 40 mg 07/15/24 09:00 Furosemide Inj 40 Mg/4 Ml Vial IV PUSH BID [facility] Radiology Results: ITS Impressions Chest X-Ray 07/14/24 17:17 IMPRESSION: 1. No acute cardiopulmonary disease with resolution of prior pulmonary edema. 2. Cardiomegaly. Chest/Abdomen/Pelvis CTA 07/14/24 20:05 IMPRESSION: No pulmonary embolus. No aortic dissection. Findings suggesting pulmonary edema. Findings suggesting prior granulomatous disease Labs Labs: Laboratory Results - last 24 hr 07/14/24 07/14/24 07/14/24 16:53 16:54 20:56 WBC 9.3 RBC 4.54 L Hgb 14.3 Hct 45.1 MCV 99.3 MCH 31.5 MCHC 31.7 L RDW 16.4 H Plt Count 267 MPV 10.0 Immature Gran % (Auto) 0.3 Neut % (Auto) 59.9 Lymph % (Auto) 28.4 [place] % (Auto) 8.3 Eos % (Auto) 1.9 Baso % (Auto) 1.2 Lymph # (Auto) 2.64 [place] # (Auto) 0.8 H Eos # (Auto) 0.2 Baso # (Auto) 0.1 Abs Immat Gran (auto) 0.03 Absolute Neuts (auto) 5.6 Absolute Nucleated RBC 0.000 Nucleated RBC % 0.0 PT 19.6 H INR 1.6 APTT 33.1 Sodium 137 Potassium 4.7 Chloride 103 Carbon Dioxide 20 L Anion Gap 14 H BUN 40 H Creatinine 1.79 H Estim Creat Clear Calc 40 Estimated GFR 38 L Glucose 105 Calcium 9.0 Total Bilirubin 2.5 H AST 483 H ALT 506 H Alkaline Phosphatase 101 Total Creatine Kinase 393 H Troponin I 0.039 H* NT-Pro-B Natriuret Pep 47380 H Total Protein 8.0 Albumin 4.2 Lipase 98 Urine Opiates Screen Negative Urine Methadone Screen Negative Ur Barbiturates Screen Negative Ur Phencyclidine Scrn Negative Ur Amphetamine Screen Positive A U Benzodiazepines Scrn Negative Urine Cocaine Screen Negative U Cannabinoids Screen Negative 07/14/24 07/15/24 07/15/24 21:29 00:51 04:48 WBC 9.1 RBC 4.46 L Hgb 14.1 Hct 43.5 MCV 97.5 MCH 31.6 MCHC 32.4 RDW 16.4 H Plt Count 243 MPV 10.0 Immature Gran % (Auto) 0.2 Neut % (Auto) 61.0 Lymph % (Auto) 26.4 [place] % (Auto) 8.3 Eos % (Auto) 3.2 Baso % (Auto) 0.9 Lymph # (Auto) 2.40 [place] # (Auto) 0.8 H Eos # (Auto) 0.3 Baso # (Auto) 0.1 Abs Immat Gran (auto) 0.02 Absolute Neuts (auto) 5.6 Absolute Nucleated RBC 0.000 Nucleated RBC % 0.0 PT INR APTT Sodium 138 Potassium 3.8 Chloride 103 Carbon Dioxide 23 Anion Gap 12 BUN 40 H Creatinine 1.73 H Estim Creat Clear Calc 41 Estimated GFR 40 L Glucose 106 Calcium 9.1 Total Bilirubin AST ALT Alkaline Phosphatase Total Creatine Kinase Troponin I 0.041 H* 0.033 NT-Pro-B Natriuret Pep Total Protein Albumin Lipase Urine Opiates Screen Urine Methadone Screen Ur Barbiturates Screen Ur Phencyclidine Scrn Ur Amphetamine Screen U Benzodiazepines Scrn Urine Cocaine Screen U Cannabinoids Screen Quality VTE Prophylaxis VTE prophylaxis: pharmacologic ordered
[2024-07-15] MEDS: carvediloL 6.25 MG TABLET PO (09:03)
[2024-07-15] MEDS: ASPIRIN 81 MG CHEWABLE TABLET PO (09:03)
[2024-07-15] MEDS: SACUBITRIL/VALSARTAN 24-26 MG TABLET 1 TAB PO (09:03)
[2024-07-15] MEDS: FUROSEMIDE INJ 40 MG/4 ML VIAL IV PUSH (09:04)
[2024-07-15 10:44] LABS: Hepatitis B Surface Antigen Negative (Negative)
[2024-07-15 10:50] LABS: HAV RESULT Negative (Negative); Hepatitis B Core IgM Result Negative (Negative)
[2024-07-15 11:01] LABS: Hepatitis C Virus Antibody Negative (Negative)
[2024-07-15 15:34] LABS: Magnesium 1.9 mg/dL (1.6-2.3)
[2024-07-16] VITALS (10 sets, daily range): BP systolic 90–125; BP diastolic 48–83; PULSE 57–94; RESP 16–20; TEMP 36.2–36.7; O2SAT 96–100
--- NOTE | 2024-07-16 | ECHO_ITS ---
Patient Info Name: Jeevan Castellanos Age: 69 years : 1955 Gender: Male Ht: 72 in Wt: 212 lbs BSA: 2.23 m2 HR: 85 bpm BP: 125 / 81 mmHg Heart Rhythm: Sinus Rhythm Technical Quality: Good Exam Date: 07/16/2024 3:15 PM Exam Location: Echo Lab Patient Status: Inpatient Admit Date: 07/15/2024 Staff Ordering Physician: Jill Lundberg [employer]ire Installer: Ericka Lewis RDCS Attending Provider: Neli Lawler PA-C Referring Physician: Tamika DOMINIQUE; Exam Type: CA echo limited w contrast Study Info Indications - CHF/LV function Limited two-dimensional transthoracic echocardiogram is performed with contrast. Contrast/Agitated Saline Contrast/Ag. Saline: Definity Amount: 3.00 ml Existing IV Access: Yes IV Access Condition: patent with no signs of infiltration Summary 1. Four-chamber dilated cardiomyopathy. 2. Severe left ventricular systolic function in a global fashion as described above. 3. No pericardial effusion. Left Ventricle Left ventricular chamber dimension is severely enlarged. Left ventricular systolic function is severely reduced, estimated at 15-20%. Right Ventricle Right ventricular chamber dimension is moderately enlarged. Right ventricular systolic function is reduced. Left Atria Left atrial chamber dimension is moderately enlarged. Right Atria Right atrial chamber dimension is moderately enlarged. Aortic Valve The aortic valve is trileaflet. There is mild aortic valve sclerosis. Pulmonic Valve The pulmonic valve is not well visualized. Mitral Valve The mitral valve has normal leaflets. Tricuspid Valve The tricuspid valve leaflets are normal. Pericardium/Pleural The pericardium appears normal. Aorta The aortic root size at the sinus of Valsalva is normal. Tricuspid Valve Name Value Normal TV Regurgitation Doppler TR Peak Velocity 282 cm/s TR Peak Gradient 32 mmHg Estimated PAP/RSVP RA Pressure 10 mmHg <=5 PA Systolic Pressure 42 mmHg <36 RV Systolic Pressure 42 mmHg <36 Ventricles Name Value Normal LV Dimensions 2D/MM IVS Diastolic Thickness (2D) 1.2 cm 0.6-1.0 LVID Diastole (2D) 6.8 cm 4.2-5.8 LVIW Diastolic Thickness (2D) 1.3 cm 0.6-1.0 LVID Systole (2D) 6.2 cm 2.5-4.0 LV Mass (2D Cubed) 404.01 g 88.00-224.00 LV Mass Index (2D Cubed) 181 g/m2 49-115 Relative Wall Thickness (2D) 0.37 LV Fractional Shortening/Ejection Fraction 2D/MM LV Fractional Shortening (2D) 10 % 25-43 LV EF (2D Teicholz) 20 % 52-72 LV Diastolic Volume (4C MOD) 270 ml LV EF (4C MOD) 14 % LV Diastolic Volume (2C MOD) 288 ml LV EF (2C MOD) 25 % LV Diastolic Volume (BP MOD) 295 ml 62-150 LV Diastolic Volume Index (BP MOD) 132 ml/m2 34-74 LV Systolic Volume (BP MOD) 231 ml 21-61 LV Systolic Volume Index (BP MOD) 104 ml/m2 11-31 LV EF (BP MOD) 22 % 52-72 LV Diastolic Length (4C) 9.5 cm LV Systolic Length (4C) 9.1 cm LV Stroke Volume (4C MOD) 37 ml Report Signatures
[2024-07-16 05:26] LABS: Hematocrit 46.6 % (42.0-52.0); Hemoglobin 14.8 g/dL (14.0-18.0); Mean Corpuscular HGB Conc 31.8 g/dl (32-36); Mean Corpuscular Hemoglobin 31.7 pg (26-34); Mean Corpuscular Volume 99.8 fl (80-100); Mean Platelet Volume 9.9 fl (7.4-10.4); Platelet Count Result 231 k/mm3 (150-375); Red Blood Count 4.67 M/mm3 (4.6-6.20); Red Cell Distribution Width 16.1 % (11.5-14.5); White Blood Count 7.6 K/mm3 (4.5-10.0)
[2024-07-16 05:36] LABS: Alanine Aminotransferase 398 U/L (6-50); Albumin Level 3.6 g/dL (3.5-5.1); Alkaline Phosphatase 88 U/L (38-126); Anion Gap 8 mmol/L (4-12); Aspartate Amino Transferase 216 U/L (17-59); Bilirubin,Total 1.6 mg/dL (0.2-1.3); Blood Urea Nitrogen 41 mg/dL (9-20); Calcium 8.5 mg/dL (8.4-10.2); Carbon Dioxide 28 mmol/L (22-30); Chloride 100 mmol/L (98-107); Estimated CRCL calculation 45 ml/min; Estimated Glomerular Filt Rate 44; Glucose 127 mg/dL (65-110); Potassium 4.2 mmol/L (3.4-5.0); Sodium 136 mmol/L (137-145)
[2024-07-16] MEDS: ASPIRIN 81 MG CHEWABLE TABLET PO (08:44)
[2024-07-16] MEDS: ENOXAPARIN 40 MG/0.4 ML SYRINGE SUB-Q (08:45)
[2024-07-16] MEDS: FUROSEMIDE INJ 40 MG/4 ML VIAL IV PUSH ×2 (08:47→16:55)
[2024-07-16] MEDS: carvediloL 6.25 MG TABLET PO ×2 (08:59→20:37)
--- NOTE | 2024-07-16 10:40 | PM.CNCAR ---
Assessment and Plan Assessment and plan (1) Systolic heart failure: Code(s): I50.20 - Unspecified systolic (congestive) heart failure Status: Acute Assessment and Plan: EF 35-30% in 2023, Improved to 55-60% on echo April 2024. Nonischemic cardiomyopathy. Continue GDMT with coreg, Entresto. Will decrease Entresto dose while diuresing to avoid hypotension Would also recommend jardiance, spironolactone when BP allows Daily BMP Will check a limited echo to reassess LV function with reported medication noncompliance and ongoing methamphetamine use. (2) Acute exacerbation of CHF (congestive heart failure): Code(s): I50.9 - Heart failure, unspecified Status: Acute Assessment and Plan: Improving with IV diuresis. Continue with IV furosemide for now. CHF counseling and lifestyle modification. (3) Non-sustained ventricular tachycardia: Code(s): I47.29 - Other ventricular tachycardia Status: Acute Assessment and Plan: NSVT, self-limiting and asymptomatic. Coreg has been resumed. Can up titrate coreg if BP allows. History of Present Illness History of Present Illness Consult date/time: 07/16/24 10:40 Requesting physician: Neli Lawler PA-C Consult reason: congestive heart failure Reason For Visit: CHF exacerbation Narrative: Jeevan Castellanos is a 69-year-old male with nonischemic cardiomyopathy initially diagnosed in 2023. He underwent a cardiac catheterization at that time and was found not to have any obstructive coronary artery disease. I saw him back in April of this year when he presented with a chief complaint of shortness of breath and was found to have RSV and mild CHF exacerbation. At that time, he had been struggling with homelessness and had not been able to comply to his medical regimen and was not following a low-sodium diet. I saw him subsequently in the office at the end of May and he had been feeling well. He returns to the hospital now with lower extremity edema and abdominal distension. He has also been experiencing fatigue and dyspnea with exertion. In my interview he reports medical compliance. Feeling better after receiving IV furosemide. Review of Systems Review of Systems: All systems reviewed & are unremarkable except as noted in HPI and below PMFSH Past Medical History Medical History Severe chronic obstructive pulmonary disease With good response to bronchodilator noted on PFTs 10/2020 Toe fracture, left multiple toes Bronchitis Nose fracture Surgical History Surgical History History of tonsillectomy Family History Family History Mother , in her 80s Diabetes mellitus Lung cancer COPD (chronic obstructive pulmonary disease) Father , at 83 years old Acute myocardial infarction Biventricular ICD (implantable cardioverter-defibrillator) in place COPD (chronic obstructive pulmonary disease) Sibling Lung cancer Social History Social History Social History: Patient was 3 times. His last between 3 and 5 years ago cancer. He then had a girlfriend who also developed cancer and in August of 2022. 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 He briefly smoked when he was younger. He denies any significant alcohol use. He denies any illicit substance use. Code status: DNR/DNI (per patient request) The patient reports he does not have a surrogate decision maker and has no family members left. He does not have any friends he feels close enough to ask to make that type of decision. Years smoked: 5 Smoking status: Never smoker Alcohol intake: former Substance use: current Substance use type: amphetamines Do You Feel Safe in your Home?: Yes Lack of Transportation: No Lack of Food: Often True Current Housing: I Do Not Have Housing Concerned About Future Housing: YES Difficulty Paying Gas/Electric Bills: No Difficulty Paying for Meds: No Currently Unemployed: No Education: Trade/Vocational Certificate Difficulty w/ Childcare or Family Care: No Gender identity (if verbalized by the patient): Male Spiritual care concerns: No Meds Home Medications and Allergies Home Medications ?Medication ?Instructions ?Recorded ?Confirmed ?Type aspirin 81 mg tablet 81 mg PO DAILY 03/06/24 07/14/24 History albuterol sulfate 90 mcg/actuation 2 puff inhalation Q4H PRN 05/27/24 07/14/24 Rx aerosol inhaler Shortness Of Breath Or Wheezing #6.7 grams budesonide 160 mcg-glycopyr 9 2 inh inhalation BID #5.9 grams 05/27/24 07/14/24 Rx mcg-formot 4.8 mcg/actuation HFA inhaler (Breztri Aerosphere) carvedilol 6.25 mg tablet (Coreg) 6.25 mg PO Q12HR #60 tabs 05/27/24 07/14/24 Rx furosemide 20 mg tablet 40 mg (2 x 20 mg) PO DAILY #30 tabs 05/27/24 07/14/24 Rx sacubitril 24 mg-valsartan 26 mg 1 tablet PO Q12HR #60 tabs 05/27/24 07/14/24 Rx tablet (Entresto) Allergies Allergy/AdvReac Type Severity Reaction Status Date / Time Sulfa (Sulfonamide Allergy Mild Itching Verified 07/09/24 03:56 Antibiotics) Vital Signs Vital Signs - 24 hr 07/15/24 12:00 07/15/24 12:00 07/15/24 16:00 Temperature 36.2 C L Pulse Rate 65 61 59 L Respiratory Rate 16 Blood Pressure 90/60 L Pulse Oximetry 100 Oxygen Delivery 07/15/24 16:00 07/15/24 20:00 07/15/24 20:00 Temperature 36.3 C L 36.3 C L Pulse Rate 93 66 Respiratory Rate 18 18 Blood Pressure 96/62 L 99/75 L Pulse Oximetry 93 97 Oxygen Delivery Room Air 07/15/24 20:00 07/16/24 00:00 07/16/24 00:00 Temperature 36.7 C Pulse Rate 79 64 62 Respiratory Rate 16 Blood Pressure 108/48 L Pulse Oximetry 96 Oxygen Delivery 07/16/24 04:00 07/16/24 04:00 07/16/24 07:33 Temperature 36.5 C 36.2 C L Pulse Rate 89 90 81 Respiratory Rate 18 16 Blood Pressure 116/77 120/79 Pulse Oximetry 99 98 Oxygen Delivery 07/16/24 08:59 Temperature Pulse Rate 75 Respiratory Rate Blood Pressure Pulse Oximetry Oxygen Delivery Exam Const: General: comfortable, no acute distress, alert and awake Orientation/consciousness: patient oriented x3 HENMT: Head: normal to inspection Eyes: General: appearance normal, both eyes and all related structures Pupils: Equal, round and reactive pupils present Neck: Neck: normal visual inspection, supple and no JVD Carotids: normal carotid upstroke Resp: Effort & Inspection: normal respiratory effort Auscultation: not clear to auscultation bilaterally and rales bilateral 1/[address] way up Cardio: Rate: regular rate Rhythm: regular rhythm Heart sounds: S1 normal heart sound present, S2 normal heart sound present and no murmurs GI: Auscultation: normal bowel sounds Skin: General skin exam: normal color Neuro: General: patient oriented x3 Cranial nerves: Yes Equal, round and reactive pupils present Extrem: General: normal to inspection Psych: Appearance: grossly normal Mental Status: mental status grossly normal Results Labs and Meds 07/16/24 05:10 07/16/24 05:10 Lab results: Cardiac Enzymes 07/16/24 Range/Units 05:10 AST 216 H (17-59) U/L CBC 07/16/24 Range/Units 05:10 WBC 7.6 (4.5-10.0) K/mm3 RBC 4.67 (4.6-6.20) M/mm3 Hgb 14.8 (14.0-18.0) g/dL Hct 46.6 (42.0-52.0) % Plt Count 231 (150-375) k/mm3 Comprehensive Metabolic Panel 07/16/24 Range/Units 05:10 Sodium 136 L (137-145) mmol/L Potassium 4.2 (3.4-5.0) mmol/L Chloride 100 (98-107) mmol/L Carbon Dioxide 28 (22-30) mmol/L BUN 41 H (9-20) mg/dL Creatinine 1.58 H (0.7-1.3) mg/dL Glucose 127 H (65-110) mg/dL Calcium 8.5 (8.4-10.2) mg/dL AST 216 H (17-59) U/L ALT 398 H (6-50) U/L Alkaline Phosphatase 88 (38-126) U/L Total Protein 7.0 (6.3-8.2) g/dL Albumin 3.6 (3.5-5.1) g/dL Intake and Output 04/03/25 04/04/25 04/04/25 23:59 07:59 15:59 Intake Total 240 200 480 Balance 240 200 480 Intake: Oral 240 200 480 Other: # Unmeasured Voids 5 3 Patient Weight 07/16/24 23:59 Weight 96.5 kg
--- NOTE | 2024-07-16 11:58 | P.PNIM_ITS ---
Progress Note: A&P Assessment and Plan (1) Non-sustained ventricular tachycardia: Code(s): I47.29 - Other ventricular tachycardia Status: Acute Assessment and Plan: Reviewed telemetry and patient has intermittent runs of asymptomatic non sustained vtach, longest run being 6 beats. Carvedilol was on hold at the time of these runs for hypotension, medication has since been resumed. Cardiology consulted (2) Acute exacerbation of CHF (congestive heart failure): Code(s): I50.9 - Heart failure, unspecified Status: Acute Assessment and Plan: Acute decompensated systolic congestive heart failure in part due to noncompliance vs amphetamine use. - Evaluated on 07/09 in the ER was given Lasix and sent home. - Symptoms: shortness of breath, lower extremity edema and abdominal swelling - Current home medications (patient reports noncompliance): carvedilol 6.25 mg BID, lasix 40 mg daily, entresto 1 tablet BID - Continue carvedilol, started on lasix 40 mg IV BID. Entresto placed on hold for hypotension - BNP: 56354 - EKG: sinus tachycardia HR 108 - Chest XR: No acute cardiopulmonary disease with resolution of prior pulmonary edema. Cardiomegaly. - Chest/abdomen/pelvis CTA: No PE or aortic dissection. Findings suggesting pulmonary edema and granulomatous disease. - Echo 05/08/24: EF 55-60% Previous cath on 07/16/23 showing EF 30% with moderate pulmonary hypertension and global hypokinesis - Venous dopplers negative - Monitor vital signs, I&Os, BUN/creatinine, daily weights, neuro status and patient is a fall risk - Monitor serum electrolytes, Keep serum Potassium>4 and serum Magnesium>2 and CBC (3) Acute kidney injury: Code(s): N17.9 - Acute kidney failure, unspecified Status: Acute Assessment and Plan: BUN/Cr 40/1.79 with GFR 38 on admission. Baseline appears WNL. - BUN/Cr 41/1.58 on am labs - Monitor I/O - Avoid nephrotoxic medications - Renally dose medications (4) Elevated troponin: Code(s): R79.89 - Other specified abnormal findings of blood chemistry Status: Acute Assessment and Plan: Likely related to demand ischemia secondary to heart failure exacerbation. - EKG without signs of infarction - Troponin peaked at 0.41, has since downtrended - Patient denies chest pain (5) Essential hypertension: Code(s): I10 - Essential (primary) hypertension Status: Acute Assessment and Plan: Chronic - Resumed patients carvedilol 6.25 mg BID - Entresto placed on hold for hypotension - Continue lasix 40 mg IV BID - Monitor (6) Transaminitis: Code(s): R74.01 - Elevation of levels of liver transaminase levels Status: Acute Assessment and Plan: LFTs elevated on admission possibly related to patients substance abuse vs heart failure exacerbation - LFTs on admission: Tot bili 2.5, AST 483, ALT 506, alk phos 101, downtrending without intervention - Chest/abdomen/pelvis CTA showed a minimally distended gallbladder (otherwise unremarkable), pancreas without ductal dilation, and a liver with punctate calcifications identified within the hepatic parenchyma, suggesting prior granulomatous disease. - Hepatitis panel negative (7) Substance abuse: Code(s): F19.10 - Other psychoactive substance abuse, uncomplicated Status: Acute Assessment and Plan: Patient states he eats meth. Denies injecting. Discussed with patient that continued drug use can worsen his heart failure and strongly encouraged cessation. UDS positive for amphetamines Care coordination consult for abuse, resources given. (8) Medical non-compliance: Code(s): Z91.199 - Patient's noncompliance with other medical treatment and regimen due to unspecified reason Status: Acute Assessment and Plan: Encourage medication compliance. Time Spent With Patient Time with patient: 25 - 35 minutes Subjective Date/time seen: 07/16/24 11:58 Interval history: 69-year-old male with a past medical history of substance abuse, homelessness, COPD, exposure to asbestos per patient's self report, hypertension, nonischemic cardiomyopathy, heart failure reduced ejection fraction 30%. Patient experience worsening shortness of breath over 24 hours which prompted him to arrive to [place] ER. Patient is pleasant lying comfortably in bed. He states that his shortness of breath and lower extremity swelling continues to improve. He continues to primarily note shortness of breath with exertion. He has no other complaints denying chest pain, palpitations, nausea/vomiting, abdominal pain. Reviewed telemetry and patient has intermittent runs of non sustained vtach, longest run being 6 beats. Patient remains asymptomatic. Discussed patient with Dr. Chery and will consult cardiology for further recommendations. Review of Systems Review of Systems: All systems reviewed & are unremarkable except as noted in HPI and below Exam Narrative: AF HR 81 RR 16 Spo2 98 BP 120/79 General: male in no acute respiratory distress who is nontoxic appearing, sitting on the side of bed HEENT: Normocephalic. Atraumatic. Extraocular movement intact. Sclera clear and anicteric. No facial asymmetry. Chest: Lungs are diminished to auscultation bilaterally. No wheezes. CV: Heart was regular rate and rhythm. Abd: Abdomen was soft. Nontender. Nondistended. Positive bowel sounds. Ext: No clubbing, cyanosis. Trivial edema. DP pulses bilaterally. Neuro: Patient is alert and oriented x3. Speech is clear. Objective Data Vital Signs Vital Signs: Vital Signs - 24 hr 07/15/24 12:00 07/15/24 12:00 07/15/24 16:00 Temperature 97.1 F L Pulse Rate 65 61 59 L Respiratory Rate 16 Blood Pressure 90/60 L Pulse Oximetry 100 Oxygen Delivery 07/15/24 16:00 07/15/24 20:00 07/15/24 20:00 Temperature 97.3 F L 97.3 F L Pulse Rate 93 66 Respiratory Rate 18 18 Blood Pressure 96/62 L 99/75 L Pulse Oximetry 93 97 Oxygen Delivery Room Air 07/15/24 20:00 07/16/24 00:00 07/16/24 00:00 Temperature 98.1 F Pulse Rate 79 64 62 Respiratory Rate 16 Blood Pressure 108/48 L Pulse Oximetry 96 Oxygen Delivery 07/16/24 04:00 07/16/24 04:00 07/16/24 07:33 Temperature 97.7 F 97.2 F L Pulse Rate 89 90 81 Respiratory Rate 18 16 Blood Pressure 116/77 120/79 Pulse Oximetry 99 98 Oxygen Delivery 07/16/24 08:59 Temperature Pulse Rate 75 Respiratory Rate Blood Pressure Pulse Oximetry Oxygen Delivery Intake/Output Intake/Output: Intake & Output 07/13/24 07/14/24 07/15/24 07/16/24 23:59 23:59 23:59 23:59 Intake Total 1440 680 Output Total 300 Balance 1140 680 Meds/Results Medications: Active Medications Generic Name Dose Route Start Last Admin Trade Name Freq PRN Reason Stop Dose Admin Aspirin 81 mg 07/15/24 08:00 07/16/24 08:44 Aspirin 81 Mg Chewable Tablet PO 81 mg DAILY@0800 SOLEDAD Administration Carvedilol 6.25 mg 07/15/24 09:00 07/16/24 08:59 Carvedilol 6.25 Mg Tablet PO 6.25 mg Q12HR SOLEDAD Administration Enoxaparin Sodium 40 mg 07/16/24 09:00 07/16/24 08:45 Enoxaparin 40 Mg/0.4 Ml Syringe SUB-Q 40 mg DAILY SOLEDAD Administration Furosemide 40 mg 07/15/24 09:00 07/16/24 08:47 Furosemide Inj 40 Mg/4 Ml Vial IV PUSH 40 mg BID SOLEDAD Administration Sacubitril/Valsartan 1 tab 07/15/24 09:00 07/15/24 09:03 Sacubitril/Valsartan 24-26 Mg Tablet PO 1 tab Q12HR SOLEDAD Administration Radiology Results: ITS Impressions Chest X-Ray 07/14/24 17:17 IMPRESSION: 1. No acute cardiopulmonary disease with resolution of prior pulmonary edema. 2. Cardiomegaly. Chest/Abdomen/Pelvis CTA 07/14/24 20:05 IMPRESSION: No pulmonary embolus. No aortic dissection. Findings suggesting pulmonary edema. Findings suggesting prior granulomatous disease Venous Doppler Study 07/15/24 14:09 IMPRESSION: 1. No deep venous thrombosis. Labs Labs: Laboratory Results - last 24 hr 07/15/24 07/16/24 04:43 05:10 WBC 7.6 RBC 4.67 Hgb 14.8 Hct 46.6 MCV 99.8 MCH 31.7 MCHC 31.8 L RDW 16.1 H Plt Count 231 MPV 9.9 Sodium 136 L Potassium 4.2 Chloride 100 Carbon Dioxide 28 Anion Gap 8 BUN 41 H Creatinine 1.58 H Estim Creat Clear Calc 45 Estimated GFR 44 L Glucose 127 H Calcium 8.5 Magnesium 1.9 Total Bilirubin 1.6 H AST 216 H ALT 398 H Alkaline Phosphatase 88 Total Protein 7.0 Albumin 3.6 Quality VTE Prophylaxis VTE prophylaxis: pharmacologic ordered
--- NOTE | 2024-07-16 12:57 | PC.NURSE ---
Patient will intermittently wear tele, but is refusing at this time.
[2024-07-16] MEDS: PERFLUTREN LIPID MICROSPHERES 1.5 ML VIAL DILUTED TO 10 ML TOTAL VOLUME IV PUSH (16:00)
--- NOTE | 2024-07-16 16:00 | IVDEFINITY ---
Prior to administration of IV Definity the patient was educated on the risks and benefits of the imaging enhancing agent including potential adverse side effects. The patient verbalized understanding. Allergies were verified. No exclusion criteria were identified and at least one of the following inclusion criteria were met: 1) physician request, 2) patient technically difficult to image (per the [place] [employer] guidelines of two or more segments not discernable within the apical view), or 3) questionable left ventricular function. ?
[2024-07-16] MEDS: SACUBITRIL/VALSARTAN 12-13 MG TABLET 1 TAB PO (20:37)
--- NOTE | 2024-07-16 23:22 | PM.EVENT ---
Event Note Event Note Event Note: Patient complaining of pain at IV site Possible IV site was small amount of induration, able to drain scant amount of purulent fluid at of site, no fluctuation felt Deferring I and D and IV antibiotics at this time Nurse outflow picture in chart MRSA swab Bacitracin decided Continue to monitor
[2024-07-16] MEDS: BACITRACIN OINTMENT 15 GM TUBE 1 APPLIC TOPICAL (23:40)
[2024-07-17] VITALS (10 sets, daily range): BP systolic 102–128; BP diastolic 60–87; PULSE 45–87; RESP 16–20; TEMP 36.4–36.9; O2SAT 97–100
[2024-07-17 00:57] LABS: MRSA (PCR) NOT DETECTED (NOT DETECTE)
[2024-07-17 07:04] LABS: Hematocrit 47.1 % (42.0-52.0); Hemoglobin 14.7 g/dL (14.0-18.0); Mean Corpuscular HGB Conc 31.2 g/dl (32-36); Mean Corpuscular Hemoglobin 31.9 pg (26-34); Mean Corpuscular Volume 102.2 fl (80-100); Mean Platelet Volume 10.6 fl (7.4-10.4); Platelet Count Result 246 k/mm3 (150-375); Red Blood Count 4.61 M/mm3 (4.6-6.20); Red Cell Distribution Width 16.4 % (11.5-14.5); White Blood Count 7.7 K/mm3 (4.5-10.0)
--- NOTE | 2024-07-17 07:22 | P.PNIM_ITS ---
Progress Note: A&P Assessment and Plan (1) Non-sustained ventricular tachycardia: Code(s): I47.29 - Other ventricular tachycardia Status: Acute Assessment and Plan: Reviewed telemetry and patient has intermittent runs of asymptomatic non sustained vtach, longest run being 6 beats. Carvedilol was on hold at the time of these runs for hypotension, medication has since been resumed. Cardiology consulted Self limiting and asymptomatic, coreg has been resumed. (2) Acute exacerbation of CHF (congestive heart failure): Code(s): I50.9 - Heart failure, unspecified Status: Acute Assessment and Plan: Acute decompensated systolic congestive heart failure in part due to noncompliance vs amphetamine use. - Evaluated on 07/09 in the ER was given Lasix and sent home. - Symptoms: shortness of breath, lower extremity edema and abdominal swelling - Current home medications (patient reports noncompliance): carvedilol 6.25 mg BID, lasix 40 mg daily, entresto 1 tablet BID - Continue carvedilol and dose decreased of Entresto, started on lasix 40 mg IV BID. Transition to PO lasix in the am. - BNP: 25174 - EKG: sinus tachycardia HR 108 - Chest XR: No acute cardiopulmonary disease with resolution of prior pulmonary edema. Cardiomegaly. - Chest/abdomen/pelvis CTA: No PE or aortic dissection. Findings suggesting pulmonary edema and granulomatous disease. - Echo 05/08/24: EF 55-60% Previous cath on 07/16/23 showing EF 30% with moderate pulmonary hypertension and global hypokinesis - Venous dopplers negative - Monitor vital signs, I&Os, BUN/creatinine, daily weights, neuro status and patient is a fall risk - Monitor serum electrolytes, Keep serum Potassium>4 and serum Magnesium>2 and CBC - Cardiology consulted Limited echo to reassess LV function , read pending Continue GDMT with coreg and decreased dose of entresto during diuresis to avoid hypotension Recommend jardiance and spironolactone when BP allows (3) Acute kidney injury: Code(s): N17.9 - Acute kidney failure, unspecified Status: Acute Assessment and Plan: BUN/Cr 40/1.79 with GFR 38 on admission. Baseline appears WNL. - BUN/Cr 37/1.42 on am labs - Monitor I/O - Avoid nephrotoxic medications - Renally dose medications (4) Elevated troponin: Code(s): R79.89 - Other specified abnormal findings of blood chemistry Status: Acute Assessment and Plan: Likely related to demand ischemia secondary to heart failure exacerbation. - EKG without signs of infarction - Troponin peaked at 0.41, has since downtrended - Patient denies chest pain (5) Essential hypertension: Code(s): I10 - Essential (primary) hypertension Status: Acute Assessment and Plan: Chronic - Resumed patients carvedilol 6.25 mg BID - Entresto resumed for GDMT per cardiology at a lower dose of 12-13 mg daily - Continue lasix 40 mg IV BID, transition to PO in am - Monitor (6) Transaminitis: Code(s): R74.01 - Elevation of levels of liver transaminase levels Status: Acute Assessment and Plan: LFTs elevated on admission possibly related to patients substance abuse vs heart failure exacerbation - LFTs on admission: Tot bili 2.5, AST 483, ALT 506, alk phos 101, downtrending without intervention - Chest/abdomen/pelvis CTA showed a minimally distended gallbladder (otherwise unremarkable), pancreas without ductal dilation, and a liver with punctate calcifications identified within the hepatic parenchyma, suggesting prior granulomatous disease. - Hepatitis panel negative (7) Substance abuse: Code(s): F19.10 - Other psychoactive substance abuse, uncomplicated Status: Acute Assessment and Plan: Patient states he eats meth. Denies injecting. Discussed with patient that continued drug use can worsen his heart failure and strongly encouraged cessation. UDS positive for amphetamines Care coordination consult for abuse, resources given. (8) Medical non-compliance: Code(s): Z91.199 - Patient's noncompliance with other medical treatment and regimen due to unspecified reason Status: Acute Assessment and Plan: Encourage medication compliance. (9) Skin abnormality: Code(s): L98.9 - Disorder of the skin and subcutaneous tissue, unspecified Status: Acute Assessment and Plan: 1x1 in wound to dorsal aspect of the right wrist with slight tenderness and slight purulent discharge from IV infiltration. No erythema or edema noted. Patient only receiving lasix IV. No IandD required at this time Continue bacitracin and monitor Time Spent With Patient Time with patient: 25 - 35 minutes Subjective Date/time seen: 07/17/24 07:22 Interval history: 69-year-old male with a past medical history of substance abuse, homelessness, COPD, exposure to asbestos per patient's self report, hypertension, nonischemic cardiomyopathy, heart failure reduced ejection fraction 30%. Patient experience worsening shortness of breath over 24 hours which prompted him to arrive to [place] ER. Patient evaluated sitting on the side of the bed. He denies any shortness of breath and notes that his lower extremity swelling has much improved. He states that overnight his IV became painful and upon removal had a pus discharge. Endorses slight tenderness but is able to move wrist and all range of motion. He also notes that he has not had a bowel movement since admission. Started on a bowel regimen. He denies any abdominal pain, nausea/vomiting and is tolerating a diet well. Patient has no other complaints denying chest pain and palpitations. Review of Systems Review of Systems: All systems reviewed & are unremarkable except as noted in HPI and below Exam Narrative: AF HR 86 RR 20 Spo2 100 BP 103/87 General: male in no acute respiratory distress who is nontoxic appearing, sitting on the side of bed HEENT: Normocephalic. Atraumatic. Extraocular movement intact. Sclera clear and anicteric. No facial asymmetry. Chest: Lungs are clear to auscultation bilaterally. No wheezes. CV: Heart was regular rate and rhythm. Abd: Abdomen was soft. Nontender. Nondistended. Positive bowel sounds. Ext: No clubbing, cyanosis. Trivial edema. DP pulses bilaterally. Neuro: Patient is alert and oriented x3. Speech is clear. Skin: 1x1 in wound to dorsal aspect of the right wrist with slight tenderness and slight purulent discharge from IV infiltration. No erythema or edema noted. ROM intact. Radial pulse present. Objective Data Vital Signs Vital Signs: Vital Signs - 24 hr 07/16/24 07:33 07/16/24 08:59 07/16/24 12:00 Temperature 97.2 F L 97.4 F L Pulse Rate 81 75 84 Respiratory Rate 16 16 Blood Pressure 120/79 125/81 Pulse Oximetry 98 99 Oxygen Delivery 07/16/24 16:00 07/16/24 16:00 07/16/24 19:46 Temperature 97.4 F L 97.6 F Pulse Rate 81 57 L 64 Respiratory Rate 16 20 Blood Pressure 118/83 114/74 Pulse Oximetry 97 100 Oxygen Delivery 07/16/24 20:00 07/16/24 20:00 07/16/24 20:00 Temperature 97.6 F Pulse Rate 64 88 Respiratory Rate 20 Blood Pressure 114/74 Pulse Oximetry 100 Oxygen Delivery Room Air 07/16/24 20:37 07/16/24 23:55 07/17/24 00:00 Temperature 98.0 F Pulse Rate 66 94 54 L Respiratory Rate 20 Blood Pressure 90/61 L Pulse Oximetry 97 Oxygen Delivery 07/17/24 04:00 07/17/24 04:00 07/17/24 04:55 Temperature 98.1 F 98.1 F Pulse Rate 84 60 60 Respiratory Rate 20 20 Blood Pressure 103/87 103/87 Pulse Oximetry 100 100 Oxygen Delivery Intake/Output Intake/Output: Intake & Output 07/14/24 07/15/24 07/16/24 07/17/24 23:59 23:59 23:59 23:59 Intake Total 1440 1550 250 Output Total 300 1050 300 Balance 1140 500 -50 Meds/Results Medications: Active Medications Generic Name Dose Route Start Last Admin Trade Name Ebony PRN Reason Stop Dose Admin Aspirin 81 mg 07/15/24 08:00 07/16/24 08:44 Aspirin 81 Mg Chewable Tablet PO 81 mg DAILY@0800 SOLEDAD Administration Bacitracin 1 applic 07/16/24 23:30 07/16/24 23:40 Bacitracin Ointment 15 Gm Tube TOPICAL 1 applic Q12HR SOLEDAD Administration Carvedilol 6.25 mg 07/15/24 09:00 07/16/24 20:37 Carvedilol 6.25 Mg Tablet PO 6.25 mg Q12HR SOLEDAD Administration Enoxaparin Sodium 40 mg 07/16/24 09:00 07/16/24 08:45 Enoxaparin 40 Mg/0.4 Ml Syringe SUB-Q 40 mg DAILY SOLEDAD Administration Furosemide 40 mg 07/15/24 09:00 07/16/24 16:55 Furosemide Inj 40 Mg/4 Ml Vial IV PUSH 40 mg BID SOLEDAD Administration Sacubitril/Valsartan 1 tab 07/16/24 21:00 07/16/24 20:37 Sacubitril/Valsartan 12-13 Mg Tablet PO 1 tab Q12HR SOLEDAD Administration Radiology Results: ITS Impressions Chest X-Ray 07/14/24 17:17 IMPRESSION: 1. No acute cardiopulmonary disease with resolution of prior pulmonary edema. 2. Cardiomegaly. Chest/Abdomen/Pelvis CTA 07/14/24 20:05 IMPRESSION: No pulmonary embolus. No aortic dissection. Findings suggesting pulmonary edema. Findings suggesting prior granulomatous disease Venous Doppler Study 07/15/24 14:09 IMPRESSION: 1. No deep venous thrombosis. Labs Labs: Laboratory Results - last 24 hr 07/16/24 07/17/24 23:39 06:59 WBC 7.7 RBC 4.61 Hgb 14.7 Hct 47.1 MCV 102.2 H MCH 31.9 MCHC 31.2 L RDW 16.4 H Plt Count 246 MPV 10.6 H Nasal MRSA (PCR) Not detected Quality VTE Prophylaxis VTE prophylaxis: pharmacologic ordered
[2024-07-17 07:37] LABS: Alanine Aminotransferase 316 U/L (6-50); Albumin Level 3.5 g/dL (3.5-5.1); Alkaline Phosphatase 77 U/L (38-126); Anion Gap 5 mmol/L (4-12); Aspartate Amino Transferase 134 U/L (17-59); Bilirubin,Total 1.4 mg/dL (0.2-1.3); Blood Urea Nitrogen 37 mg/dL (9-20); Calcium 8.6 mg/dL (8.4-10.2); Carbon Dioxide 34 mmol/L (22-30); Chloride 96 mmol/L (98-107); Estimated CRCL calculation 50 ml/min; Estimated Glomerular Filt Rate 50; Glucose 95 mg/dL (65-110); Potassium 4.4 mmol/L (3.4-5.0); Sodium 135 mmol/L (137-145)
[2024-07-17] MEDS: ASPIRIN 81 MG CHEWABLE TABLET PO (09:43)
[2024-07-17] MEDS: ENOXAPARIN 40 MG/0.4 ML SYRINGE SUB-Q (09:43)
[2024-07-17] MEDS: carvediloL 6.25 MG TABLET PO (09:43)
[2024-07-17] MEDS: SACUBITRIL/VALSARTAN 12-13 MG TABLET 1 TAB PO (09:43)
[2024-07-17] MEDS: BACITRACIN OINTMENT 15 GM TUBE 1 APPLIC TOPICAL ×2 (09:44→20:17)
[2024-07-17] MEDS: polyethylene glycoL 3350 17 GM POWD.PACK PO (10:19)
[2024-07-17] MEDS: SENNA/DOCUSATE SODIUM TABLET 1 TAB PO (10:19)
[2024-07-17] MEDS: FUROSEMIDE INJ 40 MG/4 ML VIAL IV PUSH (10:33)
--- NOTE | 2024-07-17 13:23 | P.PNCA_ITS ---
Progress Note: A&P Assessment and Plan (1) Systolic heart failure: Code(s): I50.20 - Unspecified systolic (congestive) heart failure Status: Acute (2) Nonischemic cardiomyopathy: Code(s): I42.8 - Other cardiomyopathies Status: Acute Plan Significant nonischemic cardiomyopathy doing better following IV furosemide for the last 24-36 hours. He does appear to be essentially euvolemic on going to transition him to oral furosemide starting tomorrow. Roberto Godinez MD [facility] Subjective Date/time seen: Date of service: 07/17/24 13:23 Interval history: Follow-up visit in this 69-year-old man with: Nonischemic cardiomyopathy admitted with shortness of breath, CHF exacerbation. Patient is feeling better with less shortness of breath. Was sleeping flat in bed on room air when I came in to see him upon arousal offers no complaints of dyspnea. His medical care for socioeconomic reasons has been rather fragmented at various institutions. Recent catheterization elsewhere demonstrated that he has no evidence of coronary disease. Exam Const: General: comfortable and no acute distress Other: Well-developed well-nourished white male resting comfortably in bed no distress HENMT: Mouth: Yes moist mucous membranes Eyes: Sclera: sclerae normal Neck: Neck: supple Resp: Effort & Inspection: normal respiratory effort Auscultation: clear to auscultation bilaterally Cardio: Rate: regular rate Rhythm: regular rhythm GI: GI Palp: Yes Soft to palpation Auscultation: normal bowel sounds Skin: General skin exam: normal color Neuro: Other: Alert and oriented Objective Data Vital Signs Vital Signs: Vital Signs - 24 hr 07/16/24 16:00 07/16/24 16:00 07/16/24 19:46 Temperature 36.3 C L 36.4 C Pulse Rate 81 57 L 64 Respiratory Rate 16 20 Blood Pressure 118/83 114/74 Pulse Oximetry 97 100 Oxygen Delivery 07/16/24 20:00 07/16/24 20:00 07/16/24 20:00 Temperature 36.4 C Pulse Rate 64 88 Respiratory Rate 20 Blood Pressure 114/74 Pulse Oximetry 100 Oxygen Delivery Room Air 07/16/24 20:37 07/16/24 23:55 07/17/24 00:00 Temperature 36.7 C Pulse Rate 66 94 54 L Respiratory Rate 20 Blood Pressure 90/61 L Pulse Oximetry 97 Oxygen Delivery 07/17/24 04:00 07/17/24 04:00 07/17/24 04:55 Temperature 36.7 C 36.7 C Pulse Rate 84 60 60 Respiratory Rate 20 20 Blood Pressure 103/87 103/87 Pulse Oximetry 100 100 Oxygen Delivery 07/17/24 09:40 07/17/24 09:40 07/17/24 09:43 Temperature Pulse Rate 87 86 Respiratory Rate Blood Pressure Pulse Oximetry Oxygen Delivery Room Air Intake/Output Intake/Output: Intake & Output 07/14/24 07/15/24 07/16/24 07/17/24 23:59 23:59 23:59 23:59 Intake Total 1440 1550 730 Output Total 300 1050 300 Balance 1140 500 430 Meds/Results Medications: Active Medications Generic Name Dose Route Start Last Admin Trade Name Freq PRN Reason Stop Dose Admin Albuterol 2 puff 07/17/24 09:29 Albuterol Sulfate (*Sp) Aerosol 1 Puff INHALATION Q4H PRN Shortness Of Breath Or Wheezing Aspirin 81 mg 07/15/24 08:00 07/17/24 09:43 Aspirin 81 Mg Chewable Tablet PO 81 mg DAILY@0800 SOLEDAD Administration Bacitracin 1 applic 07/16/24 23:30 07/17/24 09:44 Bacitracin Ointment 15 Gm Tube TOPICAL 1 applic Q12HR SOLEDAD Administration Carvedilol 6.25 mg 07/15/24 09:00 07/17/24 09:43 Carvedilol 6.25 Mg Tablet PO 6.25 mg Q12HR SOLEDAD Administration Enoxaparin Sodium 40 mg 07/16/24 09:00 07/17/24 09:43 Enoxaparin 40 Mg/0.4 Ml Syringe SUB-Q 40 mg DAILY SOLEDAD Administration Fluticasone/Umeclidinium/Vilanterol 1 puff 07/18/24 10:00 Fluticasone/Umeclidin/Vilanter 100-62.5-25 Mcg Ellipta INHALATION DAILYRT SOLEDAD Furosemide 40 mg 07/15/24 09:00 07/17/24 10:33 Furosemide Inj 40 Mg/4 Ml Vial IV PUSH 40 mg BID SOLEDAD Administration Polyethylene Glycol 17 gm 07/17/24 09:45 07/17/24 10:19 Polyethylene Glycol 3350 17 Gm Powd.Pack PO 17 gm QAM SOLEDAD Administration Sacubitril/Valsartan 1 tab 07/16/24 21:00 07/17/24 09:43 Sacubitril/Valsartan 12-13 Mg Tablet PO 1 tab Q12HR SOLEDAD Administration Senna/Docusate Sodium 1 tab 07/17/24 09:45 07/17/24 10:19 Senna/Docusate Sodium Tablet PO 1 tab QAM SOLEDAD Administration Radiology Results: ITS Impressions Chest X-Ray 07/14/24 17:17 IMPRESSION: 1. No acute cardiopulmonary disease with resolution of prior pulmonary edema. 2. Cardiomegaly. Chest/Abdomen/Pelvis CTA 07/14/24 20:05 IMPRESSION: No pulmonary embolus. No aortic dissection. Findings suggesting pulmonary edema. Findings suggesting prior granulomatous disease Venous Doppler Study 07/15/24 14:09 IMPRESSION: 1. No deep venous thrombosis. Labs Labs: Laboratory Results - last 24 hr 07/16/24 07/17/24 23:39 06:59 WBC 7.7 RBC 4.61 Hgb 14.7 Hct 47.1 MCV 102.2 H MCH 31.9 MCHC 31.2 L RDW 16.4 H Plt Count 246 MPV 10.6 H Sodium 135 L Potassium 4.4 Chloride 96 L Carbon Dioxide 34 H Anion Gap 5 BUN 37 H Creatinine 1.42 H Estim Creat Clear Calc 50 Estimated GFR 50 L Glucose 95 Calcium 8.6 Total Bilirubin 1.4 H AST 134 H ALT 316 H Alkaline Phosphatase 77 Total Protein 6.0 L Albumin 3.5 Nasal MRSA (PCR) Not detected
--- NOTE | 2024-07-17 19:10 | PC.NURSE ---
Charge nurse reviewed and agrees with REID felipe
[2024-07-17] MEDS: LACTULOSE ENEMA 200 GM/1,000 ML ENEMA RECTAL (23:42)
[2024-07-18] VITALS: BP 100/60; PULSE 71; RESP 16; TEMP 36.6; O2SAT 99
[2024-07-18 04:00] VITALS: BP 100/60; PULSE 64; RESP 18; TEMP 36.6; O2SAT 98
[2024-07-18 05:50] LABS: Hemoglobin 14.4 g/dL (14.0-18.0); Mean Corpuscular Hemoglobin 31.6 pg (26-34); Mean Corpuscular Volume 98.9 fl (80-100); Platelet Count Result 240 k/mm3 (150-375); Red Blood Count 4.55 M/mm3 (4.6-6.20); Red Cell Distribution Width 15.9 % (11.5-14.5); White Blood Count 6.6 K/mm3 (4.5-10.0)
[2024-07-18 05:54] LABS: Alanine Aminotransferase 222 U/L (6-50); Albumin Level 3.2 g/dL (3.5-5.1); Alkaline Phosphatase 69 U/L (38-126); Anion Gap 6 mmol/L (4-12); Aspartate Amino Transferase 75 U/L (17-59); Bilirubin,Total 1.1 mg/dL (0.2-1.3); Blood Urea Nitrogen 31 mg/dL (9-20); Calcium 8.5 mg/dL (8.4-10.2); Carbon Dioxide 32 mmol/L (22-30); Chloride 99 mmol/L (98-107); Estimated CRCL calculation 55 ml/min; Estimated Glomerular Filt Rate 56; Glucose 125 mg/dL (65-110); Potassium 3.6 mmol/L (3.4-5.0); Sodium 137 mmol/L (137-145)
[2024-07-18] MEDS: FLUTICASONE/UMECLIDIN/VILANTER 100-62.5-25 MCG ELLIPTA 1 PUFF INHALATION (07:41)
--- NOTE | 2024-07-18 09:42 | P.DS_ITS ---
DS: Admitting Diagnosis Discharge Date 07/18/2024 Admitting Diagnosis NSVT Acute CHF NITA Elevated troponin HTN Transaminitis Substance abuse Medication non compliance Skin abnormality DS: Discharge Diagnosis Discharge Diagnosis (1) Non-sustained ventricular tachycardia: Code(s): I47.29 - Other ventricular tachycardia Status: Acute (2) Acute exacerbation of CHF (congestive heart failure): Code(s): I50.9 - Heart failure, unspecified Status: Acute (3) Acute kidney injury: Code(s): N17.9 - Acute kidney failure, unspecified Status: Acute (4) Elevated troponin: Code(s): R79.89 - Other specified abnormal findings of blood chemistry Status: Acute (5) Essential hypertension: Code(s): I10 - Essential (primary) hypertension Status: Acute (6) Transaminitis: Code(s): R74.01 - Elevation of levels of liver transaminase levels Status: Acute (7) Substance abuse: Code(s): F19.10 - Other psychoactive substance abuse, uncomplicated Status: Acute (8) Medical non-compliance: Code(s): Z91.199 - Patient's noncompliance with other medical treatment and regimen due to unspecified reason Status: Acute (9) Skin abnormality: Code(s): L98.9 - Disorder of the skin and subcutaneous tissue, unspecified Status: Acute DS: Summary Hospital Course Reason for hospitalization: NSVT Acute CHF NITA Elevated troponin HTN Transaminitis Substance abuse Medication non compliance Skin abnormality Hospital Course: 69-year-old male with a past medical history of substance abuse, homelessness, COPD, exposure to asbestos per patient's self report, hypertension, nonischemic cardiomyopathy, heart failure reduced ejection fraction 30% presents to the hospital for worsening shortness of breath and lower extremity edema. NITA noted on labs, resolved prior to discharge. Troponin slightly elevated and peaked at 0.41, likely related to demand ischemia secondary to heart failure. Patient denied chest pain. On admission transaminitis noted. Hepatitis panel negative. Chest/abdomen/pelvis CTA showed a minimally distended gallbladder (otherwise unremarkable), pancreas without ductal dilation, and a liver with punctate calcifications identified within the hepatic parenchyma, suggesting prior granulomatous disease. Patient remained asymptomatic denying nausea/vomiting and abdominal pain. LFTs downtrended throughout admission. UDS positive for amphet amines. Encouraged cessation and resources given by care coordination. Patient states non compliance of heart failure medications. Chest XR showing no acute cardiopulmonary disease with resolution of prior pulmonary edema and cardiomegaly. Chest/abdomen/pelvis CTA showing no PE or aortic dissection, findings suggesting pulmonary edema and granulomatous disease. Started on IV lasix and GDMT resumed. Venous dopplers negative. Reviewed telemetry and patient has intermittent runs of asymptomatic non sustained vtach, longest run being 6 beats. Cardiology consulted. Continued carvedilol and entresto dose decreased for hypotension. Previous echo from 04/2024 showed LVEF 55-60%. Obtained a limited echo and it showed LVEF 15-20%. Prior to discharge discussed patient with cardiology Dr. Godinez. He states that since the severely reduced ejection fraction is not a new finding patient can remain on these medications and is able to discharge home. No life vest needed at this time, this and a possible defibrillator can be discussed with patient at outpatient follow up. Discussed with patient that cardiology plans to call him tomorrow to set up follow up and he states understanding. Again further encouraged patient to take medications as prescribed given severity of heart failure. He states understanding. At time of discharge patient has no complaints denying chest pain, shortness of breath, palpitations, nausea/vomiting and abdominal pain. Patient discharged in a stable condition. He is to follow up with his PCP in 1 week and cardiology as scheduled. Time spent discussing smoking cessation with patient: 3 to 10 minutes Status at Discharge Functional status at discharge: independent ambulation Time Spent with Patient Time attestation: Total time spent providing and/or coordinating discharge services: Time spent: Greater than 30 minutes Exam Narrative: AF HR 64 RR 18 SpO2 98 BP 100/60 General: male in no acute respiratory distress who is nontoxic appearing, sitting on the side of bed HEENT: Normocephalic. Atraumatic. Extraocular movement intact. Sclera clear and anicteric. No facial asymmetry. Chest: Lungs are clear to auscultation bilaterally. No wheezes. CV: Heart was regular rate and rhythm. Abd: Abdomen was soft. Nontender. Nondistended. Positive bowel sounds. Ext: No clubbing, cyanosis, edema. DP pulses bilaterally. Neuro: Patient is alert and oriented x3. Speech is clear. Skin: 1x1 in wound to dorsal aspect of the right wrist with slight tenderness from IV infiltration. No erythema or edema noted. ROM intact. Radial pulse present. DS: Data Data Completed and Pending Completed studies during hospitalization: abdomen xr venous doppler chest abdomen pelvis cta chest xr Labs on day of discharge: Labs from last 24 hours 07/18/24 05:08 WBC 6.6 RBC 4.55 L Hgb 14.4 Hct 45.0 MCV 98.9 MCH 31.6 MCHC 32.0 RDW 15.9 H Plt Count 240 MPV 10.0 Sodium 137 Potassium 3.6 Chloride 99 Carbon Dioxide 32 H Anion Gap 6 BUN 31 H Creatinine 1.28 Estim Creat Clear Calc 55 Estimated GFR 56 L Glucose 125 H Calcium 8.5 Total Bilirubin 1.1 AST 75 H ALT 222 H Alkaline Phosphatase 69 Total Protein 6.0 L Albumin 3.2 L Discharge Plan Discharge Attending physician on discharge: Britni Hare Consulting providers: Jill Lundberg Discharging Clinician: Neli Lawler Anticipated Discharge Date/Time: 07/18/24 09:28 Patient Disposition: Home, Self-Care Activity: as tolerated Diet: as tolerated and heart healthy Discharge Instructions: Discharge disposition: Patient admitted to the hospital for a heart failure exacerbation Evaluated by cardiology during admission, follow up in the outpatient setting. Attached is the office information. Cardiology will try to contact you on Friday for an appointment. Take medications as prescribed Lasix 40 mg daily Carvedilol 6.25 mg twice a day Entresto 1 tab twice a day Attached is information on these medications Maintain a cardiac diet, 2 g sodium, do not over hydrate Remain active Monitor urine output Daily weights, if you gain more than 3 lb within 1 day or 5 lb in 1 week notify your primary care provider Monitor blood pressures Take caution while standing, rising, or moving Change positions slowly taking a break between each position change If you standing feel dizzy sit back down and take a break Continue miralax as needed for constipation Continue bacitracin ointment on right wrist Encouraged to continue with yearly vaccinations Return to the emergency department if he developed sudden shortness of breath, chest pain, nausea, vomiting, upset stomach or intractable diarrhea Return to the emergency department if you develop fever greater than 101.5 Follow-up with the primary care physician within 1-2 weeks Thank you for choosing [facility] for your healthcare needs Patient Instructions: Furosemide (By mouth), Carvedilol (By mouth), Sacubitril/Valsartan (By mouth), Heart Failure (DC), Low-Sodium Diet (DC) Patient Language: Upper Sorbian Stand Alone Forms: General Discharge Information Follow-up/Referrals: Jill Lundberg YARN EXAMINER-C [Advanced Practice Nurse] - Call for Appointment Lashae Marcano APRN [Primary Care Provider] - 1 Week Discharge Medications: New bacitracin 500 unit/gram Ointment 1 applic topical Q12HR 7 Days Qty: 14 0RF polyethylene glycol 3350 [Miralax] 17 gram Powder In Packet 17 g PO QAM Qty: 14 0RF Entresto 24-26 mg Tablet 1 tab PO Q12HR Qty: 60 0RF Continued albuterol sulfate 90 mcg/actuation HFA aerosol inhaler 2 puff INHALATION Q4H PRN (Reason: Shortness Of Breath Or Wheezing) Qty: 6.7 0RF Breztri Aerosphere 160-9-4.8 mcg/actuation HFA aerosol inhaler 2 inh inhalation BID Qty: 5.9 5RF carvedilol [Coreg] 6.25 mg tablet 6.25 mg PO Q12HR Qty: 60 5RF furosemide 20 mg tablet 40 mg PO DAILY Qty: 30 1RF aspirin 81 mg Tablet 81 mg PO DAILY Discontinued sacubitril-valsartan [Entresto] 24-26 mg tablet 1 tablet PO Q12HR Qty: 60 5RF Date of admission: 07/15/24 07:25 Primary Care Provider: Lashae Marcano Admitting Provider: Anne-Marie Parry Attending physician on admission: Neli Lawler Condition: Stable Hospitalist MIPS Heart Failure (Exclusion) Patient has history of Heart Transplant or Left Ventricular Assistive Device?: No IF YES, STOP HERE Heart Failure (Qualifier) Patient has current or prior documentation of LVEF less than or equal to 40%, or mod/servere depressed LVSF?: Yes IF NO, STOP HERE If Yes, Heart Failure (Qualifier) Patient was prescribed or already taking an Angiotensin-Converting Enzyme (ELENA) Inhibitor, or Antiotensin Receptor Kendall (ARB): Yes Patient was prescribed or already taking bisoprolol, carvedilol, or sustained release metoprolol succinate: Yes
== END 2024-07-18 10:50 | disposition home or self-care (01) | DRG 291 ==
LOC: ANHED 17:23 → ANH2MED 22:37
PROVIDERS: Emergency Medicine; Nurse Practitioner Gerontology; Admitting Provider General Practice; Emergency Provider Physician Assistant; PCP Nurse Practitioner Family; Visit Provider Student in an Organized Health Care Education/Training Program
DX: I11.0 Hypertensive heart disease with heart failure (principal); I50.23 Acute on chronic systolic (congestive) heart failure; N17.9 Acute kidney failure, unspecified; I47.29 Other ventricular tachycardia; I24.89 Other forms of acute ischemic heart disease; I42.8 Other cardiomyopathies; J44.9 Chronic obstructive pulmonary disease, unspecified; R74.01 Elevation of levels of liver transaminase levels; T80.89XA Other complications following infusion, transfusion and therapeutic injection, initial encounter; F19.10 Other psychoactive substance abuse, uncomplicated; Z79.82 Long term (current) use of aspirin; Z91.199 Patient's noncompliance with other medical treatment and regimen due to unspecified reason
CPT/HCPCS: 36415; 71046; 71275; 74018; 74177; 80048; 80053; 80074; 80307; 82550; 83690; 83735; 83880; 84484; 85025; 85027; 85610; 85730; 87641; 93005; 93308; 93970; 96374; 99285; A9270; C8924; G0378; J1650; J1938; Q9957; Q9967

== ENCOUNTER 2024-08-28 00:29 | Inpatient (IN) | payer MEDICARE, MEDICAID, SELFPAY ==
[2024-08-28] VITALS (10 sets, daily range): BP systolic 124–157; BP diastolic 78–105; PULSE 84–112; RESP 14–20; TEMP 35.9–36.6; O2SAT 97–100; BMI 28.4
--- NOTE | ~2024-08-28 | XR_ITS ---
CHEST RADIOGRAPH CLINICAL HISTORY: Shortness of breath . COMPARISON: 08/28/2024 TECHNIQUE: Single portable view of the chest. FINDINGS The cardiomediastinal silhouette is enlarged, unchanged. Interval development of (likely) right upper lobe consolidation, when compared with previous examinat ion dated 07/14/2024 and 08/28/2024. Increased interstitial markings are identified bilaterally, findings suggesting mild pulmonary vascul ar congestion. The remainder of the lungs are clear. IMPRESSION: Interval development of a right upper lobe consolidation, and possible postobstructive collapse, an i nterval change from previous examinations. Mild pulmonary vascular congestion and cardiomegaly are unchanged. Reviewed, dictated and finalized at location A. IMPRESSION: Interval development of a right upper lobe consolidation, and possible postobst ructive collapse, an interval change from previous examinations. Mild pulmonary vascular congestion and cardiomegaly are unchanged.
--- NOTE | ~2024-08-28 | CT_ITS ---
EXAMINATION: CT cervical spine wo con DATE: 08/30/2024 12:52 INDICATION: fall TECHNIQUE: Computed tomography (CT) of the cervical spine was performed without intravenous contrast. Automated exposure control and iterative reconstruction technique were employed. The dose-length pro duct was 592.74 mGy-cm. COMPARISON: None. FINDINGS: Vertebral Body Alignment: Intact. Craniocervical and atlantoaxial alignment: Mild degenerative change. Alignment intact. Osseous structures/fracture: No evidence of a lytic or blastic process in the visualized spine. No e vidence of acute fracture. Cervical soft tissues: The paraspinal soft tissues planes are maintained. Moderate septal thickening. Scattered ground glass opacities in the lungs. Esophageal wall thickening. Trace left mastoid fluid. Aortic arch dilated to 3.5 cm. Degenerative changes: Multilevel degenerative disc disease. Large bridging anterior osteophyte at C3- 4. Moderate facet arthropathy at C7-T1. Severe right neural foraminal narrowing at C5-6 and C6-7 seco ndary to degenerative changes. Moderate central canal narrowing at C5-6 secondary to degenerative jimi nges. No severe central canal narrowing. IMPRESSION: No acute fracture or traumatic malalignment in the cervical spine. Esophageal wall thickening, consider referral for endoscopy. Aortic ectasia. Pulmonary edema. Reviewed, dictated and finalized at location K.
--- NOTE | ~2024-08-28 | XR_ITS ---
EXAMINATION: XR chest 2V DATE: 08/28/2024 01:09 INDICATION: Shortness of breath TECHNIQUE: PA and lateral views of the chest were obtained. COMPARISON: Chest radiograph and CT dated 07/14/2024 FINDINGS: Cardiomegaly with mild increased interstitial pattern at the bilateral lower lung zones suggesting co ngestive heart failure with mild pulmonary edema. Calcified nodule left lower lung zone and multiple small splenic calcifications consistent with old granulomatous disease. No pleural effusion or pneumo thorax. Mild thoracic spondylosis. IMPRESSION: 1. Likely congestive heart failure with cardiomegaly and mild pulmonary edema. Reviewed, dictated and finalized at location A.
--- NOTE | ~2024-08-28 | CT_ITS ---
History: Fall PROCEDURE: CT thoracic and lumbar spine without intravenous contrast. COMPARISON: 07/14/2024 (CT examination of the chest abdomen and pelvis) TECHNIQUE: Multiple contiguous axial images of the lumbar spine were performed without the administration of int ravenous contrast. DLP: 2250 mGy-cm FINDINGS: Preservation of the normal curvature of the thoracic and lumbar spines. No acute compression fractures are present. No soft tissue abnormality is noted. There are bridging endplate osteophytes at multiple levels in the thoracic and lumbar spines, consist ent with diffuse idiopathic skeletal hyperostosis (DISH). Facet hypertrophy is also noted. Impression: Degenerative disease, without acute compression fracture within either the thoracic or lumbar spine, as detailed above. Reviewed, dictated and finalized at location A. Impression: Degenerative disease, without acute compression fracture within either the thor acic or lumbar spine, as detailed above.
--- NOTE | ~2024-08-28 | US_ITS ---
EXAMINATION: US carotid duplex BI DATE: 08/30/2024 14:29 CDT INDICATION: Stroke TECHNIQUE: Grayscale, color Doppler, and pulsed Doppler images of the cervical carotid arteries were obtained. The degree of vessel stenosis is placed in one of the following categories: normal, <50%, 50-69%, >=7 0% but less than near-occlusion, near-occlusion, or total occlusion. Note that percent stenosis relative to normal distal artery lumen diameter is indirectly measured fro m velocity measurements as described originally by Jefe, et al. Radiology 2003; 229:340-346 and upda joel by Viktor Flores et al STROKE 2012;43(3);915-921. COMPARISON: None. FINDINGS: There is mild atherosclerosis of both carotid arteries. Peak systolic velocity (in cm/s) is detailed below RIGHT: Right common carotid artery (CCA): 39 cm/s. Right internal carotid artery (ICA) PSV: 24 cm/s. Right ICA end-diastolic velocity (EDV): 0.3 cm/s. Right ICA/CCA PSV ratio is 0.6. Right external carotid artery (ECA): 22cm/s. Despite prolonged interrogation, the right vertebral artery was not visualized. LEFT: Left common carotid artery (CCA): 30 cm/s. Left internal carotid artery (ICA) PSV: 35 cm/s. Left ICA end-diastolic velocity (EDV): cm/s. Left ICA/CCA PSV ratio is 1.2. Left external carotid artery (ECA): 23cm/s. There is antegrade flow in the left vertebral artery. IMPRESSION: 1. Less than 50% stenosis in the right internal carotid artery. 2. Less than 50% stenosis in the left internal carotid artery. The right vertebral artery was not visualized, as detailed above. Reviewed, dictated and finalized at location A.
--- NOTE | ~2024-08-28 | XR_ITS ---
EXAMINATION: XR chest 1V portable DATE: 08/31/2024 06:03 INDICATION: Pneumonia TECHNIQUE: frontal view of the chest was obtained. COMPARISON: Chest radiograph dated 08/30/[address] dated 07/14/2024 and 08/30/2024 FINDINGS: Cardiomegaly with pulmonary vascular congestion but without puja pulmonary edema. Calcified nodule l eft lower lung zone consistent with old granulomatous disease. No other airspace opacities, pleural e ffusion or pneumothorax. Subtle paramediastinal opacity at the medial right upper lung zone without w idening of the paratracheal stripe which appears to correspond to shadows of the right subclavian art jaxon and brachiocephalic vein on the prior CT. IMPRESSION: 1. Cardiomegaly and pulmonary vascular congestion without puja pulmonary edema or other acute cardio pulmonary disease. Reviewed, dictated and finalized at location A. IMPRESSION: 1. Cardiomegaly and pulmonary vascular congestion without puja pulmonary edema or other acute cardiopulmonary disease.
--- NOTE | ~2024-08-28 | CT_ITS ---
EXAMINATION: CT brain wo con DATE: 08/30/2024 06:58 INDICATION: Fall TECHNIQUE: Computed tomography (CT) of the head was performed without intravenous contrast. Sagittal and coronal reconstructions were performed. The mA was adjusted according to patient size. Iterative reconstruction technique was employed. The dose-length product was 1437.67 mGy-cm. COMPARISON: None FINDINGS: No fracture. There is a subtle region of loss of acevedo-white matter differentiation in the right front al lobe suspicious for relatively recent infarct. No acute intracranial hemorrhage, acute infarction or abnormal extra axial fluid collection. There is mild scattered white matter hypoattenuation consis tent with chronic small vessel ischemic disease. Ventricles are normal and symmetric. No mass/mass e ffect. Mild mucosal thickening the left maxillary sinus. The orbits, paranasal sinuses and mastoid ai r cells are normal. IMPRESSION: 1. Small right frontal lobe infarct, potentially acute. Findings were discussed with Jessica Bowers, the nurse caring for the patient, at 8:13 AM. 2. No fracture or acute intracranial hemorrhage. Reviewed, dictated and finalized at location A.
--- NOTE | 2024-08-28 00:30 | ECG_ITS ---
Test Date: 2024-08-28 00:39:06 Measurements Intervals [place] Rate: 106 P: 0 VA: 0 QRS: -19 QRSD: 116 T: 127 QT: 343 QTc: 457 Interpretive Statements SINUS TACHYCARDIA MODERATE INTRAVENTRICULAR CONDUCTION DELAY [110+ ms QRS DURATION] ST DEVIATION AND MODERATE T-WAVE ABNORMALITY, CONSIDER LATERAL ISCHEMIA [-0.1+ mV T WAVE IN I/aVL/V5/V6] LEFT VENTRICULAR HYPERTROPHY ABNORMAL ECG Electronically Signed On 08-28-2024 08:09:47 CDT by Adria Martínez M.D.
--- OUTSIDE RECORDS SUMMARY | 2024-08-28 00:31 | XMS_ITS | Clinical Summary ---
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
--- OUTSIDE RECORDS SUMMARY | 2024-08-28 00:32 | XMS_ITS | CONTINUITY OF CARE DOCUMENT ---
Author Name yareliskyara maci Address Unknown Organization [facility] Address [address] [place] [address] Phone [phone] Care Team Providers Care Announcer Name Role Phone Zion Gaspar MD Unavailable [phone] RICO ROBERSON MD Unavailable [phone] PROBLEMS Condition Status Date Provider Notes Cardiology examination active Zion [place] CHF active Zion Gaspar MD Shortness of breath active Zion Gaspar MD COPD active Zion Gaspar MD ENCOUNTERS Date Type Provider Location Encounter Diag nosis - In-person encounter Office Visit Zion Gaspar MD [facility] Cardiology examinationCHFShortness of breathCOPD VITAL SIGNS [...] Payer name Policy type / Coverage type [employer] [place] B Medicare [id number] [facility] Medicaid 2 [id number] ADVANCE DIRECTIVES Name Date DISCUSSED - NO [...] Cardiology:Pt had re cent admission to [facility] with new onset CHF. Per pt, he [...]
--- OUTSIDE RECORDS SUMMARY | 2024-08-28 00:32 | XMS_ITS | Encounter Summary ---
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 Never 07/18/2023 8:25 AM FLOT Dori Arzate, PRINCE Q2: How many drinks containing alcohol do you have on a typical day when you are drinking? Patient does not drink 07/18/2023 8:25 AM FLOT Dori Arzate RN Q3: How often do you have six or more drinks on one occasion? Never 07/18/2023 8:25 AM Dori Saucedo RN documented as of this encounter Plan of [...] documented as of this encounter Care Teams Hull Drafter Relationship Specialty Start Date End Date Emre Andrade MD PCP - General Emergency Medicine 10/19/21 12/11/23 Lisa Kern PA [address] [facility] [address] [place] [address] PCP - General Family Medicine 12/12/23 08/11/24 [place] [id number] [facility] [address], [place] [address] Consulting Physician Cardiovascular Disease 07/19/23 documented as of this encounter
--- OUTSIDE RECORDS SUMMARY | 2024-08-28 00:32 | XMS_ITS | Clinical Summary ---
Author Organization [facility] Office Center Address [address] [place] [address] Care Team Providers Care Mission Commander Name Role Phone Zion Gaspar MD Unavailable Allergies Active Allergy Reactions Criticality Noted Date Comments Ciprofloxacin Other (See comments) Low 12/27/2008 Sulfa (Sulfonamide Antibiotics) Other (See comments),Rash Medium 10/24/2021 Reaction: Medications albuterol HFA (PROVENTIL HFA,VENTOLIN HFA,PROAIR HFA) 90 [...] by mouth daily 90 tablet 4 Active Breztri Aerosphere 160-9-4.8 mcg/actuation inhaler Active doxycycline (VIBRAMYCIN) 100 mg capsule Take 1 tablet/capsu le (100 mg total) by mouth 2 (two) times a day 20 capsule 4 08/12/19 Discontinu ed(Error) methocarbamoL (ROBAXIN) 750 mg tablet Take 1 tablet (750 mg total) by mouth 3 (three) times a day 15 tablet 4 08/12/19 25 Discontinu ed(Error) cyclobenzaprine (FLEXERIL) 10 mg tablet Take 1 tablet (10 mg total) by mouth nightly as needed for muscle spasms 12 tablet 4 08/12/19 25 Discontinu ed(Error) Active Problems Problem Noted Date Diagnosed Date Stage 3a chronic kidney disease 08/12/2024 Assessment & Plan (08/13/2024 4:24 PM CDT): Last Cr at OSH scanned labs was 1.4 earlier this month 07/17/24. Cr similar here on admission 1.44. - continue to monitor with diuresis - renally dose meds - holding entresto for now Assessment & Plan (08/12/2024 5:13 PM CDT): Last Cr at OSH scanned labs was 1.4 earlier this month 07/17/24. Cr similar here on admission 1.44. 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 LVEF 15-20% with RV dysfunction per OSH TTE 07/16/2024. Has not been able to tolerate low dose GDMT, though also with adherence and follow up issues. Out of meds for a few days but also reports increased edema on lasix and shortness of breath with exertion prior to that, reports ate a lot of salty food at cousin's as well. - continue IV Lasix 40 mg BID, has had good UOP with improvement in HEYDI - GDMT: held Entresto and carvedilol --> resume coreg 6.25 bid 08/13 - repeat TTE 08/11: severely dilated LV with LVEF 27% with global hypokinesis. Indeterminate diastolic function. Moderate RV dilation with normal RV systolic function. - strict I&Os, daily weights, monitor renal function with diuresis --Low sodium diet --UDS + amphetamines (pt endorses smoking ice) - counseled on cessation Assessment & Plan (08/12/2024 5:13 PM CDT): H/o NICM with non-obstructive CAD in 2023. 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 LVEF 15-20% with RV dysfunction per OSH TTE 07/16/2024. Has not been able to tolerate low dose GDMT, though also with adherence and follow up issues. Out of meds for a few days but also reports increased edema on lasix and shortness of breath with exertion prior to that, reports ate a lot of salty food at cousin's as well. - continue IV Lasix 40 mg BID, has had good UOP - hold Entresto and carvedilol for now - repeat TTE - strict I&Os, daily weights, monitor renal function with diuresis - will need re-titration of GDMT this admission --Low sodium diet --UDS + amphetamines (pt endorses smoking ice) - counseled on cessation Assessment & Plan (08/11/2024 6:26 PM CDT): Hx NICM, out of meds for a few days but also reports increased edema on lasix and shortness of breath with exertion prior to that. --Low sodium diet --Continue Lasix 80 IV and wean as tolerated --Added UDS, previously positive for amphetamines and still positive, waiting for reflex confirmation. May explain NICM Homeless 08/11/2024 Assessment & Plan (08/13/2024 4:38 PM CDT): Staying with friends but insecure housing, food insecurity, difficulty affording meds -- consulted Assessment & Plan (08/12/2024 5:13 PM CDT): Staying with friends but insecure housing, food insecurity --SW consulted Assessment & Plan (08/11/2024 6:26 PM CDT): Staying with friends but insecure housing -- consult Grade I diastolic dysfunction 12/12/2023 Assessment & Plan (12/12/2023 11:59 AM CDT): Chronic condition. Patient denies chest pain or shortness of breath at present. Referral Cardiology. We will continue his prescribed medications including carvedilol and Entresto. 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 Male hypogonadism 01/05/2020 Vitamin D deficiency 06/28/2019 [...] Chronic obstructive pulmonary disease Assessment & Plan (08/13/2024 4:24 PM CDT): - no wheezing on exam, not in exacerbation. Replace home Breztri with formulary Trelegy. Will need refills on discharge. Assessment & Plan (08/12/2024 5:13 PM CDT): - no wheezing on exam, not in exacerbation. Replace home Breztri with formulary Trelegy. Will need refills on discharge. Assessment & Plan (12/12/2023 11:59 AM CDT): [...] Encounters Date Type Department Care Team Description 08/11/2024 1:05 AM CDT - 08/13/2024 8:00 PM CDT Hospital Encounter [address] [phone] Kiel Oliveira MD Heath, MD Vashti Pierson, MD Kosta Uriarte, MD Agustin Vargas [place] Ho Jeffrey, MD Liu, Debbi Chand MD Acute on chronic congestive heart failure, unspecified heart failure type (HCC) (Primary Dx); NITA (acute kidney injury) Discharge Disposition: Left Against Medical Advice 07/21/2024 Orders Only [facility] Cardiology [address] [place] [phone] Jill Lundberg NP 07/16/2024 Orders Only [facility] [address] [place] [phone] Jill Lundberg NP 06/09/2024 11:00 AM 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 No 08/12/2024 Social Connection and Isolat ion Panel [NHANES] Answer Date Recorded In a typical week, how many times do you talk on the phone with family, friends, or neighbors? More than three times a week 08/12/2024 How often do you get togethe r with friends or relatives? More than three times a week 08/12/2024 How often do you attend chur ch or advent services? Never 08/12/2024 Do you belong to any clubs o r organizations such as mosque groups, unions, fraternal or athletic groups, or school groups? No 08/12/2024 How often do you attend meet ings of the clubs or organizations you belong to? Never 08/12/2024 Are you , , di vorced, , never , or living with a partner? 08/12/2024 AUDIT-C Answer Date Recorded Q1: How often [...] like food, housing, medical care, and heating? Hard 08/12/2024 PHQ-2 Answer Date Recorded PHQ-2 Total Score (If total score is 3 or more points, staff should administer the PHQ-9) 1 08/12/2024 Hunger Vital Sign Answer Date Recorded Within the past 12 months, y ou worried that your food would run out before you got the money to buy more. Sometimes true Within the past 12 months, t he food you bought just didn't last and you didn't have money to get more. Sometimes true 04/2024 PRAPARE - Transportation Answer Date Re corded In the past 12 months, has l ack of transportation kept you from medical appointments or from getting medications? No 04/2024 In the past 12 months, has l ack of transportation kept you from meetings, work, or from getting things needed for daily living? Yes 08/12/2024 Housing Stability Vital Sign Answer Gabino e Recorded In the last 12 months, was t here a time when you were not able to pay the mortgage or rent on time? Yes 08/13/2024 In the past 12 months, how m any times have you moved where you were living? 1 08/13/2024 At any time in the past 12 m [facility], were you homeless or living in a usp (including now)? Yes 08/13/2024 Personal Safety Answer Date Recorded Have you ever been in or are you currently in a harmful physical or emotional relationship or is someone making you feel afraid or unsafe? 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 Gender Identity Not on file Sexual Orientation Not on file Obstetrics History Last Filed Vital Signs Vital Sign Reading Time Taken Comments Blood Pressure 112/72 08/13/2024 2:44 PM CDT Pulse 62 08/13/2024 2:44 PM CDT Temperature 36.3 C (97.3 F) 08/13/2024 2:44 PM CDT Respiratory Rate 18 08/13/2024 2:44 PM CDT Oxygen Saturation 100% 08/13/2024 2:44 PM CDT Inhaled Oxygen Concentration - - Weight 96.9 kg (213 lb 11.2 oz) 08/12/2024 4:18 AM CDT Height 182.9 cm (6') 08/11/2024 6:29 PM CDT Body Mass Index 28.98 08/11/2024 6:29 PM CDT Plan of Treatment Health Maintenance Due Date Last Done Comments Colon Cancer Screening-Colonoscopy 1955 Hepatitis C Screening 1955 Hepatitis B Screening 1975 Zoster Vaccine (1 of 2) 2007 Pneumococcal vaccine 65+ (2 of 2 - PCV) 03/07/2010 03/07/2009, 11/03/2008 Well Visit 65+ 2022 Influenza Vaccine (Season Ended) 2024 03/14/20 03, 12/13/1998 Depression Screening 08/10/2025 08/10/2024, 12/12/19 Fall Risk Assessment 08/13/2025 08/13/2024 Prostate Cancer Screening-PSA 12/11/2025 12/12/2023 DTaP/Tdap/Td Vaccine (4 - Td or Tdap) 07/26/2034 07/26/2024, 12/20/2023, 03/07/2013 Procedures Procedure Name Priority Date/Time Associated Diagnosis Comments EGFR Routine 08/13/2024 4:30 AM CDT BASIC METABOLIC PANEL Routine 08/13/2024 4:30 AM CDT TRANSTHORACIC ECHO (TTE) COMPLETE W DOPPLER/CF W CONTRAST Routine 08/12/2024 11:33 AM CDT LACTATE Timed 08/12/2024 2:57 AM CDT EGFR Timed 08/11/2024 9:17 PM CDT MAGNESIUM Timed 08/11/2024 9:17 PM CDT BASIC METABOLIC PANEL Timed 08/11/2024 9:17 PM CDT AMPHETAMINE, URINE, CONFIRMATION Routine 08/11/2024 9:43 AM CDT DRUGS OF ABUSE SCREEN, URINE WITH REFLEX CONFIRMATION Routine 08/11/2024 9:43 AM CDT TROPONIN I HIGH-SENSITIVITY 2-HOUR Timed 08/11/2024 3:24 AM CDT PRO B-TYPE NATRIURETIC PEPTIDE STAT 08/11/2024 1:27 AM CDT XR CHEST PA LATERAL 2 VIEWS ED 08/11/2024 12:20 AM CDT EGFR STAT 08/11/2024 12:11 AM CDT DIFFERENTIAL AUTO STAT 08/11/2024 12: 11 AM CDT TROPONIN I HIGH-SENSITIVITY SERIES (BASELINE, 2HR, 4HR, 6HR) STAT 08/11/2024 12:11 AM CDT CBC WITH AUTO DIFFERENTIAL STAT 08/11/2024 12:11 AM CDT COMPREHENSIVE METABOLIC PANEL STAT 08/11/2024 12:11 AM CDT ECG 12-LEAD STAT 08/10/2024 11:56 PM CDT CARDIOLOGY DOCUMENT SCAN Routine 07/17/2024 8:52 AM CDT CARDIOLOGY DOCUMENT SCAN Routine 07/16/2024 8:45 AM CDT CARDIOLOGY DOCUMENT SCAN 07/16/2024 PSA SCREEN Routine 12/12/2023 10:00 AM CDT Screening PSA (prostate specific antigen) from Last 3 Months or Most Recently Relevant to Health Maintenance Results * (ABNORMAL) eGFR (08/13/2024 4:30 AM CDT) eGFR 58(L) >=60 mL/min/1. 73 m2 Comment: Interpretive Data Reference Interval Normal >/= 90 mL/min/1.73m2 Mildly decreased* 60 - 89 mL/min/1.73m2 Mildly to moderately decreased 45 - 59 mL/min/1.73m2 Moderately to severely decreased 30 - 44 mL/min/1.73m2 Severely decreased 15 - 29 mL/min/1.73m2 Kidney Failure < 15 mL/min/1.73m2 *Relative to young adult level Estimated glomerular filtration rate is determined by the 2020 CKD-EPI equation recommended by the National Kidney Foundation (A Unifying Approach to GFR Estimation: Recommendations of the NKF-ASK Task Force on Reassessing the Inclusion of Race in Diagnosing Kidney Disease, JASN 2020). The CKD-EPI equation should not be used for patients with unstable renal function and has not been validated in children and those over 70. Current interpretive data was last reviewed 2021. Blood 08/13/2024 4:30 AM CDT 08/13/2024 5:41 AM CDT us Debbi Joe MD LAB BLOOD ORDERABLES Final R esult [facility] [place] [address] * (ABNORMAL) Basic metabolic panel (08/13/2024 4:30 AM CDT) Sodium 140 135 - 145 mmol/L Potassium, pl 3.7 3.3 - 4.9 mmol/L [facility] Chloride 101 97 - 110 mmol/L [facility] CO2 33(H) 22 - 32 mmol/L [facility] Anion gap 6 2 - 15 mmol/L [facility] BUN 35(H) 6 - 25 mg/dL [facility] Creatinine 1.35(H) 0.80 - 1.30 mg/dL [facility] Glucose 125 70 - 199 mg/dL [facility] Comment: Interpretive Data Fasting glucose >/= 126 mg/dl is diagnostic for diabetes. Fasting is defined as no caloric intake for at least 8 hours. Fasting glucose between 100 mg/dl to 125 mg/dl is diagnostic of prediabetes. In a patient with classic symptoms of hyperglycemia or hyperglycemic crisis, a random glucose >/= 200 mg/dl is diagnostic for diabetes. In the absence of unequivocal hyperglycemia, results should be confirmed by repeat testing. The classification and Diagnosis of Diabetes Diabetes Care 202; 46: S19-S40. Current interpretive data was last revised 2022. Calcium 9.2 8.5 - 10.3 mg/dL [facility] Blood 08/13/2024 4:30 AM CDT 08/13/2024 5:41 AM CDT us Debbi Joe MD LAB BLOOD ORDERABLES Final R esult [facility] [place] [address] * TRANSTHORACIC ECHO (TTE) COMPLETE W DOPPLER/CF W CONTRAST (08/12/2024 11:33 AM CDT) EF Mod BP 27 % CONS SCIMAGE Anatomical Region Laterality Modality Ultrasound 08/12/2024 10:2 4 AM CDT Narrative 08/12/2024 5:51 PM CDT [facility] [place] [address] Transthoracic Echocardiographic Report Patient Name: CELINA PAK W : 1955 (69y 2m) Gender: M Study Date: 08/12/2024 10:24:42 AM Ht(Inch): 72 Wt(Lb): 212.96 BSA: 2.22 Blood Donor Recruiter Supervisor: Silva Angela Location: [id number] Order Provider: ALIYA VELEZ Heart Rate: 90 BMI: 28.88 BP: 132 / 99 Ref Provider: ALIYA VELEZ PROCEDURES: Echocardiographic Report: Transthoracic complete echo with strain imaging and contrast, 2D, spectral and tissue Doppler, color flow Doppler, M-mode. Additional Procedures: Myocardial strain imaging was performed. Contrast: 1.1 ml Optison Administered, (1.9 ml wasted). INDICATIONS: Heart Failure. CONCLUSIONS: 1. Severely dilated left ventricle based on volume index. Eccentric LV hypertrophy. Severely depressed left ventricular systolic function. The Ejection Fraction (Edmonds's) is measured at 27 %. There is global LV hypokinesis. The average global longitudinal strain is abnormal. 2. Moderate right ventricular dilatation. Normal right ventricular systolic function. 3. Moderately dilated left atrium. 4. Right atrial dilatation. 5. Mild-moderate mitral valve regurgitation. 6. Mild-moderate aortic valve regurgitation. 7. Mild tricuspid regurgitation. Estimated PASP = 50 mmHg. COMPARISONS: No previous study available for comparison. ATTESTATION: I have personally reviewed and interpreted this study without fellow or resident. - DISCLAIMER: The study images and the final report will be retained in the patient chart by the Echo Laboratory for the legally required time period. This chart constitutes the legal record of any testing performed. FINDINGS: Left Ventricle: Severely dilated left ventricle based on volume index. Eccentric LV hypertrophy. Severely depressed left ventricular systolic function. The Ejection Fraction (Edmonds's) is measured at 27 %. Left ventricular diastolic function is indeterminate due to E/A fusion. The average global longitudinal strain is abnormal. The LV global strain is: -5.1 %. Resting Segmental Wall Motion Analysis: Total wall motion score is 2.00. There is global left ventricular hypokinesis. Regional Wall Motion: There is severe global hypokinesis. Right Ventricle: Moderate right ventricular dilatation. Normal right ventricular systolic function. Left Atrium: Moderately dilated left atrium. Right Atrium: Right atrial dilatation. Mitral Valve: Normal MV leaflet thickness. Mild-moderate mitral valve regurgitation. MR is likely functional, secondary to tethering of both leaflets to the posterior wall in the setting of LV dysfunction. No stenosis present. Aortic Valve: Trileaflet aortic valve. Mildly thickened aortic valve leaflets. Mild-moderate aortic valve regurgitation; by color doppler AR appears mild, but PHT suggests moderate AR (PHT = 377 ms). No aortic valve stenosis. Tricuspid Valve: Normal tricuspid valve structure. Mild tricuspid regurgitation. Estimated PASP = 50 mmHg. No tricuspid valve stenosis. Pulmonic Valve: Normal pulmonic valve structure. Trace pulmonic regurgitation. No pulmonic valve stenosis present. Pericardium: No pericardial effusion seen in available views. Aorta: Mild aortic root dilation at sinuses of Valsalva. The ascending aorta is normal in size when indexed. IVC: IVC is dilated (2.3 cm). The IVC was >2.1 cm and collapsibility <50% (est. RA pressure 15 mmHg). MEASUREMENTS: 2D/MM Value Range Doppler Value Range LVIDd 2D 6.70 cm [ 4.20 - 5.80 ] AV Peak Solomon 1.3 m/s [ 1.0 - 1.7 ] LVIDs 2D 6.15 cm [ 2.50 - 4.00 ] AV Peak PG 6.76 mmHg IVSd 2D 1.24 cm [ 0.60 - 1.00 ] AV Mean PG 3 mmHg LVPWd 2D 1.30 cm [ 0.60 - 1.00 ] AV VTI 21.5 cm LV Thickness Ratio 1.0 LVOT Peak Solomon 0.7 m/s [ 0.7 - 1.1 ] LV FS 2D 4.55 % [ 25.00 - 43.00 ] LVOT Peak PG 1.96 mmHg LV Mass 2D 416.35 g LVOT Mean PG 1 mmHg LV Mass Index 2D 187.55 g/m2 LVOT VTI 12.3 cm RWT 0.39 LVOT Diam 2.32 cm EDV Mod BP 269.98 ml [ 62.00 - 150.00 ] JOSE ARMANDO VTI 2.42 cm2 LV EDV Index 121.61 ml/m2 LVOT/AV VTI 0.57 - Dimensionless index (DVI) ESV Mod BP 197.55 ml [ 21.00 - 61.00 ] MV E Peak Solomon 0.9 m/s [ 0.6 - 1.3 ] EF Mod BP 27 % [ 52 - 72 ] MV A Peak Solomon 0.4 m/s [ 1.0 - 1.2 ] LV GLS -5.1 % [ -25.0 - -18.0 ] MV E/A 260.9 ratio [ 0.8 - 1.5 ] LA Length 4C 6.60 cm MV Decel Time 189.12 msec [ 104.00 - 258.00 ] LA Length 2C 5.96 cm Med E` Solomon 9.1 cm/sec [ 8.0 - 25.0 ] LA Volume BP 105.81 ml Lat E` Solomon 7.9 cm/sec [ 10.0 - 25.0 ] LA Volume Index 47.66 ml/m2 [ 16.00 - 34.00 ] Average E/E` 10.59 TAPSE 1.94 cm [ 1.71 - 5.00 ] MR Peak Solomon 4.8 m/s RA Volume 112.98 ml MR Peak PG 92.16 mmHg RA Volume Index 50.89 ml/m2 MR VTI 154.1 cm RVOT Diam 4.90 cm TR Peak Solomon 2.9 m/s [ 1.0 - 2.8 ] AoR Diam 2D 4.09 cm [ 3.10 - 3.70 ] TR Peak PG 33.6 mmHg Ao Root Index 1.84 cm/m2 [ 1.00 - 2.00 ] Asc Ao Diam 2D 3.67 cm Asc Ao Index 1.65 cm/m2 Electronically Signed By: Celina Rinaldi MD 08/12/2024 5:51:27 PM CDT Procedure Note Celina Rinaldi MD PhD - 08/12/2024 [facility] Cardiac [place] [address] Transthoracic Echocardiographic Report Patient Name: CELINA PAK W : 1955 (69y 2m) Gender: M Study Date: 08/12/2024 10:24:42 AM Ht(Inch): 72 Wt(Lb): 212.96 BSA: 2.22 Blood Donor Recruiter Supervisor: Silva Angela Location: [place] [address] Order Provider:ALIYA VELEZ Heart Rate: 90 BMI: 28.88 BP: 132 / 99 Ref Provider: ALIYA VELEZ PROCEDURES: Echocardiographic Report: Transthoracic complete echo with strain imagingand contrast, 2D, spectral and tissue Doppler, color flow Doppler, M-mode. Additional Procedures: Myocardial strain imaging was performed. Contrast: 1.1 ml Optison Administered, (1.9 ml wasted). INDICATIONS: Heart Failure. CONCLUSIONS: 1. Severely dilated left ventricle based on volume index. Eccentric LVhypertrophy. Severely depressed left ventricular systolic function. The EjectionFraction (Edmonds's) is measured at 27 %. There is global LV hypokinesis. The average globallongitudinal strain is abnormal. 2. Moderate right ventricular dilatation. Normal right ventricularsystolic function. 3. Moderately dilated left atrium. 4. Right atrial dilatation. 5. Mild-moderate mitral valve regurgitation. 6. Mild-moderate aortic valve regurgitation. 7. Mild tricuspid regurgitation. Estimated PASP = 50 mmHg. COMPARISONS: No previous study available for comparison. ATTESTATION: I have personally reviewed and interpreted this study without fellow orresident. - DISCLAIMER: The study images and the final report will be retained in the patientchart by the Echo Laboratory for the legally required time period. This chart constitutesthe legal record of any testing performed. FINDINGS: Left Ventricle: Severely dilated left ventricle based on volume index.Eccentric LV hypertrophy. Severely depressed left ventricular systolic function. TheEjection Fraction (Edmonds's) is measured at 27 %. Left ventricular diastolic function isindeterminate due to E/A fusion. The average global longitudinal strain is abnormal. The LVglobal strain is: -5.1 %. Resting Segmental Wall Motion Analysis: Total wall motion score is 2.00.There is global left ventricular hypokinesis. Regional Wall Motion: There is severe global hypokinesis. Right Ventricle: Moderate right ventricular dilatation. Normal rightventricular systolic function. Left Atrium: Moderately dilated left atrium. Right Atrium: Right atrial dilatation. Mitral Valve: Normal MV leaflet thickness. Mild-moderate mitral valveregurgitation. MR is likely functional, secondary to tethering of both leaflets to theposterior wall in the setting of LV dysfunction. No stenosis present. Aortic Valve: Trileaflet aortic valve. Mildly thickened aortic valveleaflets. Mild-moderate aortic valve regurgitation; by color doppler AR appearsmild, but PHT suggests moderate AR (PHT = 377 ms). No aortic valve stenosis. Tricuspid Valve: Normal tricuspid valve structure. Mild tricuspidregurgitation. Estimated PASP = 50 mmHg. No tricuspid valve stenosis. Pulmonic Valve: Normal pulmonic valve structure. Trace pulmonicregurgitation. No pulmonic valve stenosis present. Pericardium: No pericardial effusion seen in available views. Aorta: Mild aortic root dilation at sinuses of Valsalva. The ascendingaorta is normal in size when indexed. IVC: IVC is dilated (2.3 cm). The IVC was >2.1 cm and collapsibility <50%(est. RA pressure 15 mmHg). MEASUREMENTS: 2D/MM Value Range DopplerValue Range LVIDd 2D 6.70 cm [ 4.20 - 5.80 ] AV Peak Vel1.3 m/s [ 1.0 - 1.7 ] LVIDs 2D 6.15 cm [ 2.50 - 4.00 ] AV Peak PG6.76 mmHg IVSd 2D 1.24 cm [ 0.60 - 1.00 ] AV Mean PG3 mmHg LVPWd 2D 1.30 cm [ 0.60 - 1.00 ] AV VTI21.5 cm LV Thickness Ratio 1.0 LVOT Peak Vel0.7 m/s [ 0.7 - 1.1 ] LV FS 2D 4.55 % [ 25.00 - 43.00 ] LVOT Peak PG1.96 mmHg LV Mass 2D 416.35 g LVOT Mean PG1 mmHg LV Mass Index 2D 187.55 g/m2 LVOT VTI12.3 cm RWT 0.39 LVOT Diam2.32 cm EDV Mod BP 269.98 ml [ 62.00 - 150.00 ] JOSE ARMANDO VTI2.42 cm2 LV EDV Index 121.61 ml/m2 LVOT/AV VTI0.57 - Dimensionless index (DVI) ESV Mod BP 197.55 ml [ 21.00 - 61.00 ] MV E Peak Vel0.9 m/s [ 0.6 - 1.3 ] EF Mod BP 27 % [ 52 - 72 ] MV A Peak Vel0.4 m/s [ 1.0 - 1.2 ] LV GLS -5.1 % [ -25.0 - -18.0 ] MV E/A260.9 ratio [ 0.8 - 1.5 ] LA Length 4C 6.60 cm MV Decel Goee136.12 msec [ 104.00 - 258.00 ] LA Length 2C 5.96 cm Med E` Vel9.1 cm/sec [ 8.0 - 25.0 ] LA Volume BP 105.81 ml Lat E` Vel7.9 cm/sec [ 10.0 - 25.0 ] LA Volume Index 47.66 ml/m2 [ 16.00 - 34.00 ] Average E/E`10.59 TAPSE 1.94 cm [ 1.71 - 5.00 ] MR Peak Vel4.8 m/s RA Volume 112.98 ml MR Peak PG92.16 mmHg RA Volume Index 50.89 ml/m2 MR XMO151.1 cm RVOT Diam 4.90 cm TR Peak Vel2.9 m/s [ 1.0 - 2.8 ] AoR Diam 2D 4.09 cm [ 3.10 - 3.70 ] TR Peak PG33.6 mmHg Ao Root Index 1.84 cm/m2 [ 1.00 - 2.00 ] Asc Ao Diam 2D3.67 cm Asc Ao Index1.65 cm/m2 Electronically Signed By: Celina Rinaldi MD 08/12/2024 5:51:27 PM CDT Aliya Velez MD CV ECHO PROCEDURES Antonette l Result * Lactate (08/12/2024 2:57 AM CDT) Lactate 0.8 0.7 - 2.0 mmol/L Blood 08/12/2024 2:57 AM CDT 08/12/2024 3:18 AM CDT Aliya Velez MD LAB BLOOD ORDERABLES Fi nal Result [facility] Department of [place] [address] * (ABNORMAL) eGFR (08/11/2024 9:17 PM CDT) eGFR 47(L) >=60 mL/min/1. 73 m2 Comment: Interpretive Data Reference Interval Normal >/= 90 mL/min/1.73m2 Mildly decreased* 60 - 89 mL/min/1.73m2 Mildly to moderately decreased 45 - 59 mL/min/1.73m2 Moderately to severely decreased 30 - 44 mL/min/1.73m2 Severely decreased 15 - 29 mL/min/1.73m2 Kidney Failure < 15 mL/min/1.73m2 *Relative to young adult level Estimated glomerular filtration rate is determined by the 2020 CKD-EPI equation recommended by the National Kidney Foundation (A Unifying Approach to GFR Estimation: Recommendations of the NKF-ASK Task Force on Reassessing the Inclusion of Race in Diagnosing Kidney Disease, JASN 2020). The CKD-EPI equation should not be used for patients with unstable renal function and has not been validated in children and those over 70. Current interpretive data was last reviewed 2021. Blood 08/11/2024 9:17 PM CDT 08/11/2024 9:51 PM CDT Aliya Velez MD LAB BLOOD ORDERABLES Fi nal Result Performing Organization Address City/[facility]/ZIP Co de Phone Number [facility] [place] [address] * Magnesium (08/11/2024 9:17 PM CDT) Pathologist [facility] Magnesium 1.9 1.4 - 2.5 mg/dL Blood 08/11/2024 9:17 PM CDT 08/11/2024 9:51 PM CDT Aliya Velez MD LAB BLOOD ORDERABLES Fi nal Result Performing Organization Address City/[facility]/ZIP Co de Phone Number [facility] [place] [place] [address] * (ABNORMAL) Basic metabolic panel (08/11/2024 9:17 PM CDT) Sodium 141 135 - 145 mmol/L Potassium, pl 4.1 3.3 - 4.9 mmol/L [facility] Comment:Hemolyzed; Potassium value may be falsely elevated by as much as 0.3-0.5 mmol/L. Suggest redraw and reanalysis. Chloride 97 97 - 110 mmol/L [facility] CO2 33(H) 22 - 32 mmol/L [facility] Anion gap 11 2 - 15 mmol/L [facility] BUN 34(H) 6 - 25 mg/dL [facility] Creatinine 1.60(H) 0.80 - 1.30 mg/dL [facility] Glucose 81 70 - 199 mg/dL [facility] Comment: Interpretive Data Fasting glucose >/= 126 mg/dl is diagnostic for diabetes. Fasting is defined as no caloric intake for at least 8 hours. Fasting glucose between 100 mg/dl to 125 mg/dl is diagnostic of prediabetes. In a patient with classic symptoms of hyperglycemia or hyperglycemic crisis, a random glucose >/= 200 mg/dl is diagnostic for diabetes. In the absence of unequivocal hyperglycemia, results should be confirmed by repeat testing. The classification and Diagnosis of Diabetes Diabetes Care 202; 46: S19-S40. Current interpretive data was last revised 2022. Calcium 9.3 8.5 - 10.3 mg/dL [facility] Blood 08/11/2024 9:17 PM CDT 08/11/2024 9:51 PM CDT Aliya Velez MD LAB BLOOD ORDERABLES nal Result [facility] [place] [address] * (ABNORMAL) Drugs of Abuse Screen, Urine with Reflex Confirmation (08/11/2024 9:43 AM CDT) Pathologist [facility] Amphetamine, ur Screen Positive, presumptive (A) CutOff 500ng/mL Comment: Interpretive Data - Amphetamines: Samples containing greater than 500 ng/mL d-methamphetamine or other cross-reacting amphetamine compounds are reported as positive. Amphetamine immunoassays are subject to significant false positive rates due to cross-reactivity of non-amphetamine drugs. Confirmatory testing required for definitive results. Current Interpretive Data was last reviewed 2022. Barbiturates, ur Not Detected CutOff 200ng/mL [facility] Comment: Interpretive Data - Barbiturates: Samples containing greater than 200 ng/mL secobarbital or other cross-reacting barbiturate compounds are reported as positive. False positive and false negative results are possible. Confirmatory testing required for definitive results. Current Interpretive Data was last reviewed 2022. Benzodiazepines, ur Not Detected CutOff 100ng/mL [facility] Comment: Interpretive Data - Benzodiazepines: Samples containing greater than 100 ng/mL nordiazepam or other cross-reacting compounds are reported as positive. False positive and false negative results are possible. Confirmatory testing required for definitive results. Current Interpretive Data was last reviewed 2022. Cannabinoids, ur Not Detected CutOff 50 ng/mL [facility] Comment: Interpretive Data - Cannabinoids: Samples containing greater than 50 ng/mL delta-9 THC -COOH or other cross- reacting compounds are reported as positive. False positive and false negative results are possible. Confirmatory testing required for definitive results. Current Interpretive Data was last reviewed 2022. Cocaine, ur Not Detected CutOff 150ng/mL [facility] Comment: Interpretive Data - Cocaine: Samples containing greater than 150 ng/mL benzoylecgonine or other cross- reacting compounds are reported as positive. False positive and false negative results are possible. Confirmatory testing required for definitive results. Current Interpretive Data was last reviewed 2022. Fentanyl, Ur Not Detected CutOff 5 ng/mL [facility] Comment: Interpretive Data - Fentanyl: Samples containing greater than 5 ng/mL norfentanyl, fentanyl, or other cross-reacting fentanyl compounds are reported as positive. False positive and false negative results are possible. Confirmatory testing required for definitive results. Current Interpretive Data was last reviewed 2023. Methadone, ur Not Detected CutOff 300ng/mL [facility] Comment: Interpretive Data - Methadone: Samples containing greater than 300 ng/mL d,l-methadone or other cross-reacting compounds are reported as positive. False positive and false negative results are possible. Confirmatory testing required for definitive results. Current Interpretive Data was last reviewed 2022. Opiates, ur Not Detected CutOff 300ng/mL [facility] Comment: Interpretive Data - Opiates: Samples containing greater than 300 ng/mL morphine or other cross-reacting compounds are reported as positive. False positive and false negative results are possible. Confirmatory testing required for definitive results. Current Interpretive Data was last reviewed 2022. Oxycodone, ur Not Detected CutOff 100ng/mL [facility] Comment: Interpretive Data - Oxycodone: Samples containing greater than 100 ng/mL oxycodone or other cross-reacting compounds are reported as positive. False positive and false negative results are possible. Confirmatory testing required for definitive results. Current Interpretive Data was last reviewed 2022. Phencyclidine, ur Not Detected CutOff 25 ng/mL [facility] Comment: Interpretive Data - Phencyclidine: Samples containing greater than 25 ng/mL phencyclidine or other cross-reacting compounds are reported as positive. False positive and false negative results are possible. Confirmatory testing required for definitive results. Current Interpretive Data was last reviewed 2022. Urine Creatinine 9 mg/dL [facility] Comment: Interpretive Data Urine Creatinine: < 10 mg/dL is extremely dilute = or > 10 but < 20 mg/dL is dilute = or > 20 mg/dL is normal Current Interpretive Data was last revised on 2017. Urine 08/11/2024 9:43 AM CDT 08/11/2024 10:49 AM CDT N[facility]ative [facility] - 08/11/2024 11:54 AM CDT Drug of Abuse screening is performed by immunoassay for medical purposes only. This is not to be used for Pain Management purposes. If Detected, confirmation testing will be performed for Amphetamines, Cocaine, Fentanyl, Methadone, Opiates, Oxycodone or Phencyclidine. Lucie Tai NP LAB URINE ORDERABLES Final Result [facility] [place] [address] * (ABNORMAL) Amphetamine Confirmation, Urine (08/11/2024 9:43 AM CDT) Amphetamine Conf, Ur Does Not Confirm CutOff 150ng/mL Methamphetamine Conf, Ur Confirmed Positive(A) CutOff 150ng/mL [facility] MDA Conf, Ur Does Not Confirm CutOff 150ng/mL [facility] MDMA Conf, Ur Does Not Confirm CutOff 50 ng/mL [facility] MDEA Conf, Ur Does Not Confirm CutOff 150ng/mL [facility] MBDB Conf, Ur Does Not Confirm CutOff 150ng/mL [facility] Comment: Interpretive Data This test detects the presence or absence of drug compounds using LC Tandem mass spectrometry. While this test is highly specific, false positive and false negative results may occur in very rare circumstances. Contact the laboratory for consultation, if needed. Performance characteristics were determined by the [facility] in a manner consistent with CLIA requirement and has not been cleared or approved by the U.S. Food and Drug Administration. Current interpretive data was last revised on 2020. Urine 08/11/2024 9:43 AM CDT 08/11/2024 11:01 AM CDT Lucie Tai NP LAB URINE ORDERABLES Final Result [facility] [place] [address] * Troponin I high-sensitivity 2-hour (08/11/2024 3:24 AM CDT) Trop I hs 25 <=35 ng/L Comment: Interpretive Data For further hscTnI resources including the diagnostic algorithm and an aid in interpretation, copy and paste this link: https://bjhlab.testcatalog.org/show/hsTrop-[email or web address] Current Interpretive Data last revised 2019. Trop I hs delta See Comment ng/L [facility] Comment:Inappropriate collec tion time to report a delta. Trop I hs pct delta See Comment % [facility] Comment:Inappropriate collec tion time to report a delta. Trop I hs interp See Comment [facility] Comment:Inappropriate collec tion time to report a delta. Blood 08/11/2024 3:24 AM CDT 08/11/2024 3:36 AM CDT us Melly Moctezuma MD LAB BLOOD ORDERABLES Final Result Performing Organization Address City/[facility]/ZIP Co de Phone Number [facility] [place] [address] * (ABNORMAL) Pro B-type natriuretic peptide (08/11/2024 1:27 AM CDT) NT-proBNP 7,728(H) <=300 pg/mL Comment: Interpretive Comments: A. Dyspnea in Acute Care Setting All Ages: < 300 pg/ml, acute heart failure unlikely. < 50 yrs: 300 - 450 pg/ml, further investigation warranted. > 450 pg/ml, acute heart failure likely. 50 - 74 yrs: 300 - 900 pg/ml, further investigation warranted. > 900 pg/ml, acute heart failure likely . > or = 75 yrs: 450 - 1800 pg/ml, further investigation warranted. > 1800 pg/ml, acute heart failure likely. B. Non-acute Setting < 75 yrs < 125 pg/ml, rules out heart failure. > or = 125 pg/ml, further investigation warranted. > or = 75 yrs < 450 pg/ml, rules out heart failure. > or = 450 pg/ml, further investigation warranted. - Knowledge of each individual patient's NT-proBNP range may be more useful than using similar cut-points for every patient. Please note that marked elevations in NT-proBNP levels may be observed in state other than Left Ventricular Congestive Failure, including: acute coronary syndromes, right heart strain/failure (including pulmonary embolism and cor pulmonale), critical illness, renal failure, as well as advanced age. - References: 1. Krystal LAGUNA et.al. Eur Heart J. 2006:27:330-337. 2. Teetee RW, Magalie AM. J. AM Alejandro Cardiol: Cardiovasc Imag. 2009;2: 216- 225. Interpretive Data Last Revised Date: 2017. Blood 08/11/2024 1:27 AM CDT 08/11/2024 1:50 AM CDT us Caitlin Petit MD LAB BLOOD ORDERABLES Final Re sult [facility] [place] [address] * XR Chest PA Lateral 2 Views (08/11/2024 12:20 AM CDT) Anatomical Region Laterality Modality Body, Chest N/A Computed Radiogr aphy 08/11/2024 1:20 AM CDT Impressions 08/11/2024 11:13 AM CDT Comparison is made to chest radiograph 02/13/2024. There is bibasilar atelectasis. No pulmonary consolidation, pleural effusion, or pneumothorax. There is unchanged cardiomegaly. Dictated by: Elpidio Fletcher MD The radiology attending physician has personally reviewed this study, and had reviewed and/or edited this written report and agrees with it. Electronically signed by: Darwin Barbosa M.D. Narrative 08/11/2024 11:13 AM CDT EXAMINATION: 2 view chest radiograph Procedure Note Darwin Barbosa MD - 08/11/2024 EXAMINATION: 2 view chest radiograph IMPRESSION: Comparison is made to chest radiograph 02/13/2024. There is bibasilar atelectasis. No pulmonary consolidation, pleural effusion, or pneumothorax. There is unchanged cardiomegaly. Dictated by: Elpidio Fletcher MD The radiology attending physician has personally reviewed this study, and had reviewed and/or edited this written report and agrees with it. Electronically signed by: Darwin Barbosa M.D. Kiel Oliveira MD IMG XR PROCEDURES Final Resul t * Troponin I high-sensitivity series (baseline, 2hr, 4hr, 6hr) (08/11/2024 12:11 AM CDT) Trop I hs 26 <=35 ng/L Comment: Interpretive Data For further hscTnI resources including the diagnostic algorithm and an aid in interpretation, copy and paste this link: https://bjhlab.testcatalog.org/show/hsTrop-1 Current Interpretive Data last revised 2019. Blood 08/11/2024 12:1 1 AM CDT 08/11/2024 12:28 AM CDT Kiel Oliveira MD LAB BLOOD ORDERABLES Final Re sult Performing Organization Address City/[facility]/ZIP Co de Phone Number [facility] [place] [address] * (ABNORMAL) eGFR (08/11/2024 12:11 AM CDT) eGFR 53(L) >=60 mL/min/1. 73 m2 Comment: Interpretive Data Reference Interval Normal >/= 90 mL/min/1.73m2 Mildly decreased* 60 - 89 mL/min/1.73m2 Mildly to moderately decreased 45 - 59 mL/min/1.73m2 Moderately to severely decreased 30 - 44 mL/min/1.73m2 Severely decreased 15 - 29 mL/min/1.73m2 Kidney Failure < 15 mL/min/1.73m2 *Relative to young adult level Estimated glomerular filtration rate is determined by the 2020 CKD-EPI equation recommended by the National Kidney Foundation (A Unifying Approach to GFR Estimation: Recommendations of the NKF-ASK Task Force on Reassessing the Inclusion of Race in Diagnosing Kidney Disease, JASN 2020). The CKD-EPI equation should not be used for patients with unstable renal function and has not been validated in children and those over 70. Current interpretive data was last reviewed 2021. Blood 08/11/2024 12:1 1 AM CDT 08/11/2024 12:26 AM CDT Kiel Oliveira MD LAB BLOOD ORDERABLES Final Re sult Performing Organization Address City/[facility]/ZIP Co de Phone Number [facility] [place] [address] * Differential, auto (08/11/2024 12:11 AM CDT) Neutrophil abs 4.47 1.50 - 6.50 K/cumm Imm gran abs 0.02 0.00 - 0.10 K/cumm [facility] Lymphocyte abs 1.79 0.80 - 3.30 K/cumm [facility] Monocyte abs 0.50 0.20 - 0.80 K/cumm [facility] Eosinophil abs 0.24 0.00 - 0.50 K/cumm [facility] Basophil abs 0.07 0.00 - 0.10 K/cumm [facility] Neutrophil pct 63.0 % [facility] Comment: Interpretive Data Percent cell count reference ranges are not reported, since discordance with absolute values may lead to misinterpretation of CBC data. Current Interpretive Data was last revised on 2017. Imm gran pct 0.3 % [facility] Comment: Interpretive Data Percent cell count reference ranges are not reported, since discordance with absolute values may lead to misinterpretation of CBC data. Current Interpretive Data was last revised on 2017. Lymphocyte pct 25.2 % [facility] Comment: Interpretive Data Percent cell count reference ranges are not reported, since discordance with absolute values may lead to misinterpretation of CBC data. Current Interpretive Data was last revised on 2017. Monocyte pct 7.1 % [facility] Comment: Interpretive Data Percent cell count reference ranges are not reported, since discordance with absolute values may lead to misinterpretation of CBC data. Current Interpretive Data was last revised on 2017. Eosinophil pct 3.4 % [facility] Comment: Interpretive Data Percent cell count reference ranges are not reported, since discordance with absolute values may lead to misinterpretation of CBC data. Current Interpretive Data was last revised on 2017. Basophil pct 1.0 % [facility] Comment: Interpretive Data Percent cell count reference ranges are not reported, since discordance with absolute values may lead to misinterpretation of CBC data. Current Interpretive Data was last revised on 2017. Blood 08/11/2024 12:1 1 AM CDT 08/11/2024 12:27 AM CDT Kiel Oliveira MD LAB BLOOD ORDERABLES Final Re sult [facility] [place] [address] * (ABNORMAL) CBC with auto differential (08/11/2024 12:11 AM CDT) [facility] WBC 7.09 3.80 - 9.90 K/cumm Hgb 13.2 13.0 - 17.5 g/dL [facility] Hct 41.2 38.9 - 50.3 % [facility] Plt 192 150 - 400 K/cumm [facility] MPV 10.0 9.1 - 12.3 fL [facility] RBC 4.20(L) 4.30 - 5.80 M/cumm [facility] MCV 98.1(H) 81.3 - 96.4 fL [facility] MCH 31.4 27.1 - 33.3 pg [facility] MCHC 32.0(L) 32.3 - 35.7 g/dL [facility] RDW CV 14.7 11.1 - 14.9 % [facility] RDW SD 53.1(H) 35.7 - 48.1 fL [facility] NRBC abs 0.00 0.00 - 0.01 K/cumm [facility] Blood 08/11/2024 12:1 1 AM CDT 08/11/2024 12:27 AM CDT Kiel Oliveira MD LAB BLOOD ORDERABLES Final Re sult Performing Organization Address [facility]/ZIP Co de Phone Number [facility] [place] [address] * (ABNORMAL) Comprehensive metabolic panel (08/11/2024 12:11 AM CDT) [facility] Sodium 141 135 - 145 mmol/L Potassium, pl 4.8 3.3 - 4.9 mmol/L [facility] Chloride 103 97 - 110 mmol/L [facility] CO2 32 22 - 32 mmol/L [facility] Anion gap 6 2 - 15 mmol/L [facility] BUN 32(H) 6 - 25 mg/dL [facility] Creatinine 1.44(H) 0.80 - 1.30 mg/dL [facility] Glucose 103 70 - 199 mg/dL [facility] Comment: Interpretive Data Fasting glucose >/= 126 mg/dl is diagnostic for diabetes. Fasting is defined as no caloric intake for at least 8 hours. Fasting glucose between 100 mg/dl to 125 mg/dl is diagnostic of prediabetes. In a patient with classic symptoms of hyperglycemia or hyperglycemic crisis, a random glucose >/= 200 mg/dl is diagnostic for diabetes. In the absence of unequivocal hyperglycemia, results should be confirmed by repeat testing. The classification and Diagnosis of Diabetes Diabetes Care 2021; 46: S19-S40. Current interpretive data was last revised 2022. Calcium 9.5 8.5 - 10.3 mg/dL [facility] Bilirubin, total 0.8 0.1 - 1.2 mg/dL [facility] Protein, pl 7.3 6.5 - 8.5 g/dL [facility] Albumin 3.8 3.5 - 5.0 g/dL [facility] Alk phos 95 40 - 130 Units/L [facility] ALT 56(H) 7 - 55 Units/L [facility] AST 49 10 - 50 Units/L [facility] Blood 08/11/2024 12:1 1 AM CDT 08/11/2024 12:26 AM CDT Kiel Oliveira MD LAB BLOOD ORDERABLES Final Re sult [facility] Department [place] [address] * ECG 12-LEAD (08/10/2024 11:56 PM CDT) Narrative [facility] - 08/10/2024 11:56 PM CDT Heron Cruz MD 08/11/2024 12:04 AM ECG 12 lead Date/Time: 08/10/2024 11:56 PM Performed by: Heron Cruz MD Authorized by: Melly Moctezuma MD Rate: ECG rate: 103 Rhythm: Rhythm: sinus tachycardia Ectopy: Ectopy: none QRS: QRS axis: Normal Conduction: Conduction: normal ST segments: ST segments: Non-specific Elevation: V1, V2, V3, V4 and aVR Depression: I, aVL and aVF T waves: T waves: inverted Inverted: I, aVL and V6 Other findings: Other findings: LVH Previous ECG: Previous ECG: Compared to current Date of previous EC11/04/2023 Comparison ECG info: ST and T wave changes all similar to prior, but now more pronounced Interpretation: Interpretation: non-specific Recommended Follow-up: Recommended follow up: further workup in the ED Comments: Pattern is nonspecific. Most consistent with LVH strain. Procedure Note Heorn Cruz MD - 08/10/2024 11:56 PM CDT Procedure ECG 12 lead Date/Time: 08/10/2024 11:56 PM Performed by: Heron Cruz MD Authorized by: Melly Moctezuma MD Rate: ECG rate: 103 Rhythm: Rhythm: sinus tachycardia Ectopy: Ectopy: none QRS: QRS axis: Normal Conduction: Conduction: normal ST segments: ST segments: Non-specific Elevation: V1, V2, V3, V4 and aVR Depression: I, aVL and aVF T waves: T waves: inverted Inverted: I, aVL and V6 Other findings: Other findings: LVH Previous ECG: Previous ECG: Compared to current Date of previous EC11/04/2023 Comparison ECG info: ST and T wave changes all similar to prior, butnow more pronounced Interpretation: Interpretation: non-specific Recommended Follow-up: Recommended follow up: further workup in the ED Comments: Pattern is nonspecific. Most consistent with LVH strain. Heron Cruz MD 08/11/24 0004 us Kiel Oliveira MD ECG ORDERABLES Final Result [facility] * Cardiology Document Scan (07/17/2024 8:52 AM CDT) Anatomical Region Laterality Modality Other us Roberto Godinez MD CV CARDIAC SERVICES PROC EDURES Final Result * Cardiology Document Scan (07/16/2024 8:45 AM CDT) Anatomical Region Laterality Modality Other Jill Janet Lundberg NP CV CARDIAC SERVICES PROCEDUR ES Final Result * Cardiology Document Scan (07/16/2024) Anatomical Region Laterality Modality Other Jill Joycee Tamika GENERATOR REBUILDER CV CARDIAC SERVICES PROCEDUR ES Final Result [...] data last revised 21. Testing performed by: [facility], [address] [place] [address]., [id number] Blood 12/12/2023 10:0 0 AM CDT 12/12/2023 12:16 PM CDT Lisa JACINTO LAB BLOOD ORDERABLES [facility] al Result Performing Organization Address City/State/ZIP Co nm Phone Number [facility] [address] [facility] [place] [address] from Last 3 Months or Most Recently Relevant to Health Maintenance Insurance [employer] [facility] MEDICARE IDPA MEDICARE IDPA Advance Directives For more information, please contact: [phone] * Full Code (Latest Code Status on File) Date Activated Date Inactivated Comments 08/11/2024 5:02 PM 08/14/2024 12:27 AM * Full Code Date Activated Date Inactivated Comments 11/03/2023 4:46 PM 11/06/2023 6:41 PM * Full Code Date Activated Date Inactivated Comments 07/18/2023 11:06 AM 07/19/2023 7:36 PM Care Teams Mission Commander Relationship Specialty [place] [address] [address] Consulting Physician Cardiovascular Disease 07/19/23
--- OUTSIDE RECORDS SUMMARY | 2024-08-28 00:32 | XMS_ITS | Referral Summary ---
Author Organization 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 Photofinishing Laboratory Worker Name Role Phone Zion Gaspar MD Unavailable Encounters Date Type Department Care Team Description 08/11/2024 1:05 AM CDT - 08/13/2024 8:00 PM CDT Hospital Encounter [address] [phone] Kiel Oliveira MD Heath, MD Vashti Pierson, MD Kosta Uriarte, MD Agustin Vargas Cheuk Ho Jeffrey, MD Liu, Debbi Chand MD Acute on chronic congestive heart failure, unspecified heart failure type (HCC) (Primary Dx); NITA (acute kidney injury) Discharge Disposition: Left Against Medical Advice 07/21/2024 Orders Only [facility] Medical Group Cardiology [address] [facility] [address] [place] [phone] Jill Lundberg NP 07/16/2024 Orders Only [facility] Health Information Management [address] [place] [id number] Jill Lundberg NP 06/09/2024 11:00 AM 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 Office Visit [facility] Medical Group Cardiology [address] [place] [phone] Jill Lundberg NP Nonischemic cardiomyopathy (HCC) (Primary Dx) from Last 3 Months Allergies Active Allergy [...] 4 Active Breztri Aerosphere 160-9-4.8 mcg/actuation inhaler 5 Active doxycycline (VIBRAMYCIN) 100 mg capsule Take 1 tablet/capsu le (100 mg total) by mouth 2 (two) times a day 20 capsule 4 08/12/19 25 Discontinu ed(Error) methocarbamoL (ROBAXIN) 750 mg tablet [...] insecure housing, food insecurity, difficulty affording meds --SW consulted Assessment & Plan (08/12/2024 5:13 PM CDT): Staying with friends but insecure housing, food insecurity --SW consulted Assessment & Plan (08/11/2024 6:26 PM CDT): Staying with friends but insecure housing --SW consult Grade I diastolic dysfunction 12/12/2023 Assessment & Plan (12/12/2023 11:59 AM CDT): Chronic condition. Patient denies chest pain or shortness of breath at present. Referral Cardiology. We will continue his prescribed medications including carvedilol and Entresto. Nonischemic cardiomyopathy 12/12/2023 Assessment & Plan (12/12/2023 11:59 AM CDT): Referral to cardiology Coronary artery disease invo lving [place] coronary artery of [place] heart without angina pectoris 12/12/2023 Assessment & [...] refilled today Patient needs referral to new optical engineering technician. Male hypogonadism 01/05/2020 Vitamin D deficiency 06/28/2019 [...] Tobacco: Never Tobacco Cessation:Counseling Given: Not Answered [facility] Utilities Answer Date Recorded In the past 12 months has th e [employer], gas, oil, or water company threatened to [...] often do you attend chur ch or anglican services? Never 08/12/2024 Do you belong to any clubs o r organizations such as scientology groups, unions, fraternal or athletic groups, or [...] in the past 12 m [facility], were you homeless or living in a usp (including now)? Yes 08/13/2024 Personal Safety Answer Date Recorded Have you ever been in or are you currently in a harmful physical or emotional relationship or is someone making you feel afraid or unsafe? 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80 - 1.30 mg/dL [facility] Glucose 125 70 - 199 mg/dL [facility] Comment: Interpretive Data Fasting glucose >/= [...] 2022. Calcium 9.2 8.5 - 10.3 mg/dL [facility] Blood 08/13/2024 4:30 AM CDT 08/13/2024 5:41 AM CDT us Debbi Joe MD LAB BLOOD ORDERABLES Final R esult [facility] [place] [address] * TRANSTHORACIC ECHO (TTE) COMPLETE W DOPPLER/CF W CONTRAST (08/12/2024 11:33 AM CDT) EF Mod BP 27 % CONS SCIMAGE Anatomical Region Laterality Modality Ultrasound 08/12/2024 10:2 4 AM CDT Narrative 08/12/2024 5:[address] [facility] [place] [address] Transthoracic Echocardiographic Report Patient Name: CELINA PAK W : 1955 (69y 2m) Gender: M Study Date: 08/12/2024 10:24:42 AM Ht(Inch): 72 Wt(Lb): 212.96 BSA: 2.22 Supervisor [employer]ing [employer]: Silva Angela Location: [id number] Order Provider: ALIYA VELEZ Heart Rate: 90 [...] Note Celina Rinaldi MD PhD - 08/12/2024 [facility] [place] [address] Transthoracic Echocardiographic Report Patient Name: CELINA PAK W : 1955 (69y 2m) Gender: M Study Date: 08/12/2024 10:24:42 AM Ht(Inch): 72 Wt(Lb): 212.96 BSA: 2.22 Supervisor [employer]ing [employer]: [employer] Angela Location: [id number] Order Provider:ALIYA VELEZ Heart Rate: 90 BMI: [...] LA Length 4C 6.60 cm MV Decel Cech227.12 msec [ 104.00 - 258.00 ] LA [...] mmHg RA Volume Index 50.89 ml/m2 MR AIU353.1 cm RVOT Diam 4.90 cm TR Peak Vel2.9 m/s [ 1.0 - 2.8 ] AoR Diam 2D 4.09 cm [ 3.10 - 3.70 ] TR Peak PG33.6 mmHg Ao Root Index 1.84 cm/m2 [ 1.00 - 2.00 ] Asc Ao Diam 2D3.67 cm Asc Ao Index1.65 cm/m2 Electronically Signed By: Celina Rinaldi MD 08/12/2024 5:51:27 PM CDT Claire Milton Velez MD CV ECHO PROCEDURES Antonette l Result * Lactate (08/12/2024 2:57 AM CDT) Lactate 0.8 0.7 - 2.0 mmol/L Blood 08/12/2024 2:57 AM CDT 08/12/2024 3:18 AM CDT Aliya Velez MD LAB BLOOD ORDERABLES Fi nal Result Performing Organization Address [facility] Co de Phone Number [facility]INO [facility] [place] [address] * (ABNORMAL) eGFR (08/11/2024 9:17 PM CDT) [...] ORDERABLES Fi nal Result Performing Organization Address [facility] Co de Phone Number MARINO [facility] Department [place] [address] * Magnesium (08/11/2024 9:17 PM CDT) Magnesium 1.9 1.4 - 2.5 mg/dL Blood 08/11/2024 9:17 PM CDT 08/11/2024 9:51 PM CDT Aliya Velez MD LAB BLOOD ORDERABLES Fi nal Result [facility] Department [place] [address] * (ABNORMAL) Basic metabolic panel (08/11/2024 9:17 PM CDT) Pathologist [facility] Sodium 141 135 - 145 mmol/L Potassium, pl 4.1 3.3 - 4.9 mmol/L [facility] Comment:Hemolyzed; Potassium value may be falsely elevated by as much as 0.3-0.5 mmol/L. Suggest redraw and reanalysis. Chloride 97 97 - 110 mmol/L [facility] CO2 33(H) 22 - 32 mmol/L [facility] Anion gap 11 2 - 15 mmol/L [facility] BUN 34(H) 6 - 25 mg/dL [facility] Creatinine 1.60(H) 0.80 - 1.30 mg/dL [facility] Glucose 81 70 - 199 mg/dL [facility] Comment: Interpretive Data Fasting glucose >/= [...] Calcium 9.3 8.5 - 10.3 mg/dL [facility] Blood 08/11/2024 9:17 PM CDT 08/11/2024 9:51 PM CDT Aliya Velez MD LAB BLOOD ORDERABLES Fi nal Result [facility] Department [place] [address] * (ABNORMAL) Drugs of Abuse Screen, Urine with Reflex Confirmation (08/11/2024 9:43 AM CDT) Amphetamine, ur Screen Positive, presumptive (A) CutOff 500ng/mL Comment: Interpretive Data - Amphetamines: Samples containing greater than 500 ng/mL d-methamphetamine or other cross-reacting amphetamine compounds are reported as positive. Amphetamine immunoassays are subject to significant false positive rates due to cross-reactivity of non-amphetamine drugs. Confirmatory testing required for definitive results. Current Interpretive Data was last reviewed 2022. Barbiturates, ur Not Detected CutOff 200ng/mL [facility] Comment: Interpretive Data - Barbiturates: Samples containing greater than 200 ng/mL secobarbital or other cross-reacting barbiturate compounds are reported as positive. False positive and false negative results are possible. Confirmatory testing required for definitive results. Current Interpretive Data was last reviewed 2022. Benzodiazepines, ur Not Detected CutOff 100ng/mL [facility] Comment: Interpretive Data - Benzodiazepines: Samples containing greater than 100 ng/mL nordiazepam or other cross-reacting compounds are reported as positive. False positive and false negative results are possible. Confirmatory testing required for definitive results. Current Interpretive Data was last reviewed 2022. Cannabinoids, ur Not Detected CutOff 50 ng/mL [facility] Comment: Interpretive Data - Cannabinoids: Samples containing greater than 50 ng/mL delta-9 THC -COOH or other cross- reacting compounds are reported as positive. False positive and false negative results are possible. Confirmatory testing required for definitive results. Current Interpretive Data was last reviewed 2022. Cocaine, ur Not Detected CutOff 150ng/mL [facility] Comment: Interpretive Data - Cocaine: Samples containing greater than 150 ng/mL benzoylecgonine or other cross- reacting compounds are reported as positive. False positive and false negative results are possible. Confirmatory testing required for definitive results. Current Interpretive Data was last reviewed 2022. Fentanyl, Ur Not Detected CutOff 5 ng/mL [facility] Comment: Interpretive Data - Fentanyl: Samples containing greater than 5 ng/mL norfentanyl, fentanyl, or other cross-reacting fentanyl compounds are reported as positive. False positive and false negative results are possible. Confirmatory testing required for definitive results. Current Interpretive Data was last reviewed 2023. Methadone, ur Not Detected CutOff 300ng/mL [facility] Comment: Interpretive Data - Methadone: Samples containing greater than 300 ng/mL d,l-methadone or other cross-reacting compounds are reported as positive. False positive and false negative results are possible. Confirmatory testing required for definitive results. Current Interpretive Data was last reviewed 2022. Opiates, ur Not Detected CutOff 300ng/mL [facility] Comment: Interpretive Data - Opiates: Samples containing greater than 300 ng/mL morphine or other cross-reacting compounds are reported as positive. False positive and false negative results are possible. Confirmatory testing required for definitive results. Current Interpretive Data was last reviewed 2022. Oxycodone, ur Not Detected CutOff 100ng/mL [facility] Comment: Interpretive Data - Oxycodone: Samples containing greater than 100 ng/mL oxycodone or other cross-reacting compounds are reported as positive. False positive and false negative results are possible. Confirmatory testing required for definitive results. Current Interpretive Data was last reviewed 2022. Phencyclidine, ur Not Detected CutOff 25 ng/mL [facility] Comment: Interpretive Data - Phencyclidine: Samples containing greater than 25 ng/mL phencyclidine or other cross-reacting compounds are reported as positive. False positive and false negative results are possible. Confirmatory testing required for definitive results. Current Interpretive Data was last reviewed 2022. Urine Creatinine 9 mg/dL [facility] Comment: Interpretive Data Urine Creatinine: < 10 mg/dL is extremely dilute = or > 10 but < 20 mg/dL is dilute = or > 20 mg/dL is normal Current Interpretive Data was last revised on 2017. Urine 08/11/2024 9:43 AM CDT 08/11/2024 10:49 AM CDT Narrative [facility] - 08/11/2024 11:54 AM CDT Drug of Abuse screening is performed by immunoassay for medical purposes only. This is not to be used for Pain Management purposes. If Detected, confirmation testing will be performed for Amphetamines, Cocaine, Fentanyl, Methadone, Opiates, Oxycodone or Phencyclidine. Lucie Tai NP LAB URINE ORDERABLES Final Result Performing Organization Address City/[facility]/ZIP Co de Phone Number [facility] [place] [address] * (ABNORMAL) Amphetamine Confirmation, Urine (08/11/2024 9:43 AM CDT) Amphetamine Conf, Ur Does Not Confirm CutOff 150ng/mL Methamphetamine Conf, Ur Confirmed Positive(A) CutOff 150ng/mL [facility] MDA Conf, Ur Does Not Confirm CutOff 150ng/mL [facility] MDMA Conf, Ur Does Not Confirm CutOff 50 ng/mL [facility] MDEA Conf, Ur Does Not Confirm CutOff 150ng/mL [facility] MBDB Conf, Ur Does Not Confirm CutOff 150ng/mL [facility] Comment: Interpretive Data This test detects the presence or absence of drug compounds using LC Tandem mass spectrometry. While this test is highly specific, false positive and false negative results may occur in very rare circumstances. Contact the laboratory for consultation, if needed. Performance characteristics were determined by the [facility] in a manner consistent with CLIA requirement and has not been cleared or approved by the U.S. Food and Drug Administration. Current interpretive data was last revised on 2020. Urine 08/11/2024 9:43 AM CDT 08/11/2024 11:01 AM CDT Lucie Tai NP LAB URINE ORDERABLES Final Result Performing Organization Address City/[facility]/ZIP Co de Phone Number [facility] [place] [address] * Troponin I high-sensitivity 2-hour (08/11/2024 3:24 AM CDT) Trop I hs 25 <=35 ng/L Comment: Interpretive Data For further hscTnI resources including the diagnostic algorithm and an aid in interpretation, copy and paste this link: https://bjhlab.testcatalog.org/show/hsTrop-1 Current Interpretive Data last revised 2019. Trop I hs delta See Comment ng/L [facility] Comment:Inappropriate collec tion time to report a delta. Trop I hs pct delta See Comment % [facility] Comment:Inappropriate collec tion time to report a delta. Trop I hs interp See Comment [facility] Comment:Inappropriate collec tion time to report a delta. Blood 08/11/2024 3:24 AM CDT 08/11/2024 3:36 AM CDT us Melly Moctezuma MD LAB BLOOD ORDERABLES Final Result [facility] Department [place] [address] * (ABNORMAL) Pro B-type natriuretic peptide (08/11/2024 [...] as advanced age. - References: 1. Krystal JL et.al. Eur Heart J. 2006:27:330-337. 2. Teetee RW, Magalie FAGAN. J. AM Alejandro Cardiol: Cardiovasc Imag. 2009;2: 216- 225. Interpretive Data Last Revised Date: 2017. Blood 08/11/2024 1:27 AM CDT 08/11/2024 1:50 AM CDT us Caitlin Petit MD LAB BLOOD ORDERABLES Final Re sult [facility] [place] [address] * XR Chest PA Lateral 2 Views [...] it. Electronically signed by: Darwin Barbosa M.D. us Kiel Oliveira MD IMG XR PROCEDURES Final [...] MD LAB BLOOD ORDERABLES Final Re sult [facility] [place] [address] * (ABNORMAL) eGFR (08/11/2024 12:11 AM CDT) [...] 1 AM CDT 08/11/2024 12:26 AM CDT us Kiel Oliveira MD LAB BLOOD ORDERABLES Final Re sult [facility] [place] [address] * Differential, auto (08/11/2024 12:11 AM CDT) Neutrophil abs 4.47 1.50 - 6.50 K/cumm Imm gran abs 0.02 0.00 - 0.10 K/cumm [facility] Lymphocyte abs 1.79 0.80 - 3.30 K/cumm [facility] Monocyte abs 0.50 0.20 - 0.80 K/cumm [facility] Eosinophil abs 0.24 0.00 - 0.50 K/cumm [facility] Basophil abs 0.07 0.00 - 0.10 K/cumm [facility] Neutrophil pct 63.0 % [facility] Comment: Interpretive Data Percent cell count reference ranges are not reported, since discordance with absolute values may lead to misinterpretation of CBC data. Current Interpretive Data was last revised on 2017. Imm gran pct 0.3 % [facility] Comment: Interpretive Data Percent cell count reference ranges are not reported, since discordance with absolute values may lead to misinterpretation of CBC data. Current Interpretive Data was last revised on 2017. Lymphocyte pct 25.2 % [facility] Comment: Interpretive Data Percent cell count reference ranges are not reported, since discordance with absolute values may lead to misinterpretation of CBC data. Current Interpretive Data was last revised on 2017. Monocyte pct 7.1 % [facility] Comment: Interpretive Data Percent cell count reference ranges are not reported, since discordance with absolute values may lead to misinterpretation of CBC data. Current Interpretive Data was last revised on 2017. Eosinophil pct 3.4 % [facility] Comment: Interpretive Data Percent cell count reference ranges are not reported, since discordance with absolute values may lead to misinterpretation of CBC data. Current Interpretive Data was last revised on 2017. Basophil pct 1.0 % [facility] Comment: Interpretive Data Percent cell count reference ranges are not reported, since discordance with absolute values may lead to misinterpretation of CBC data. Current Interpretive Data was last revised on 2017. Blood 08/11/2024 12:1 1 AM CDT 08/11/2024 12:27 AM CDT us Kiel Oliveira MD LAB BLOOD ORDERABLES Final Re sult [facility] [place] [address] * (ABNORMAL) CBC with auto differential (08/11/2024 12:11 AM CDT) WBC 7.09 3.80 - 9.90 K/cumm Hgb 13.2 13.0 - 17.5 g/dL [facility] Hct 41.2 38.9 - 50.3 % [facility] Plt 192 150 - 400 K/cumm [facility] MPV 10.0 9.1 - 12.3 fL [facility] RBC 4.20(L) 4.30 - 5.80 M/cumm [facility] MCV 98.1(H) 81.3 - 96.4 fL [facility] MCH 31.4 27.1 - 33.3 pg [facility] MCHC 32.0(L) 32.3 - 35.7 g/dL [facility] RDW CV 14.7 11.1 - 14.9 % [facility] RDW SD 53.1(H) 35.7 - 48.1 fL [facility] NRBC abs 0.00 0.00 - 0.01 K/cumm [facility] Blood 08/11/2024 12:1 1 AM CDT 08/11/2024 12:27 AM CDT us Kiel Oliveira MD LAB BLOOD ORDERABLES Final Re sult [facility] [place] [address] * (ABNORMAL) Comprehensive metabolic panel (08/11/2024 12:11 AM CDT) Sodium 141 135 - 145 mmol/L Potassium, pl 4.8 3.3 - 4.9 mmol/L [facility] Chloride 103 97 - 110 mmol/L [facility] CO2 32 22 - 32 mmol/L [facility] Anion gap 6 2 - 15 mmol/L [facility] BUN 32(H) 6 - 25 mg/dL [facility] Creatinine 1.44(H) 0.80 - 1.30 mg/dL [facility] Glucose 103 70 - 199 mg/dL [facility] Comment: Interpretive Data Fasting glucose >/= [...] Calcium 9.5 8.5 - 10.3 mg/dL [facility] Bilirubin, total 0.8 0.1 - 1.2 mg/dL [facility] Protein, pl 7.3 6.5 - 8.5 g/dL [facility] Albumin 3.8 3.5 - 5.0 g/dL [facility] Alk phos 95 40 - 130 Units/L [facility] ALT 56(H) 7 - 55 Units/L [facility] AST 49 10 - 50 Units/L [facility] Blood 08/11/2024 12:1 1 AM CDT 08/11/2024 12:26 AM CDT Kiel Oliveira MD LAB BLOOD ORDERABLES Final Re sult [facility] [place] [address] * ECG 12-LEAD (08/10/2024 11:56 PM CDT) Narrative [facility] - 08/10/2024 11:56 PM CDT Heron Cruz [...] Most consistent with LVH strain. Procedure Note Heron Cruz MD - 08/10/2024 11:56 PM CDT [...] LVH strain. Heron Cruz MD 08/11/24 0004 Kiel Oliveira MD ECG ORDERABLES Final Result Performing Organization Address City/[facility]/ZIP Co de Phone Number [facility] * Cardiology Document Scan (07/17/2024 8:52 AM CDT) Anatomical Region Laterality Modality Other Roberto Godinez MD CV CARDIAC SERVICES PROC EDURES Final Result * Cardiology Document Scan (07/16/2024 8:45 AM CDT) Anatomical Region Laterality Modality Other Jill Lundberg NP CV CARDIAC SERVICES PROCEDUR ES Final Result * Cardiology Document Scan (07/16/2024) Anatomical Region Laterality Modality Other Jill Lundberg [...] data last revised 21. Testing performed by: [facility], [address] [place] [address]., [id number] Blood 12/12/2023 10:0 0 AM CDT 12/12/2023 12:16 PM CDT Lisa JACINTO LAB BLOOD ORDERABLES Fin al Result Performing Organization Address City/State/[facility] Co de Phone Number [facility] [address] [facility] Department [place] [address] from Last 3 Months or Most Recently Relevant to Health Maintenance Insurance [employer] MEDICARE [facility] MEDICARE IDPA Advance Directives For more information, please contact: [phone] * Full Code (Latest Code Status on File) Date Activated Date Inactivated Comments 08/11/2024 5:02 PM 08/14/2024 12:27 AM * Full Code Date Activated Date Inactivated Comments 11/03/2023 4:46 PM 11/06/2023 6:41 PM * Full Code Date Activated Date Inactivated Comments 07/18/2023 11:06 AM 07/19/2023 7:36 PM Care Teams Photofinishing Laboratory Worker Relationship Specialty [place] [id number] [place] [address] Consulting Physician Cardiovascular Disease 07/19/23
[2024-08-28 05:20] LABS: Basophils Absolute Auto 0.1 K/mm3 (0.0-0.1); Basophils Percent Auto 0.6 % (0.2-1.2); Eosinophils Absolute Auto 0.2 K/mm3 (0-0.3); Eosinophils Percent Auto 2.1 % (0-4.4); Hematocrit 45.9 % (42.0-52.0); Immature Granulocyte Absolute 0.02 K/mm3 (0.00-0.031); Immature Granulocyte Percent A 0.3 % (0-0.5); Lymphocytes Absolute Auto 2.32 K/mm3 (0.9-3.2); Lymphocytes Percent Auto 29.2 % (18.3-44.2); Mean Corpuscular HGB Conc 30.5 g/dl (32-36); Mean Corpuscular Hemoglobin 30.8 pg (26-34); Mean Corpuscular Volume 100.9 fl (80-100); Mean Platelet Volume 9.4 fl (7.4-10.4); Monocytes Absolute Auto 0.5 K/mm3 (0.1-0.6); Monocytes Percent Auto 6.5 % (2.6-8.5); Neutrophils Absolute Auto 4.9 K/mm3 (1.3-6.7); Neutrophils Percent Auto 61.3 % (45.5-73.1); Platelet Count Result 308 k/mm3 (150-375); Red Blood Count 4.55 M/mm3 (4.6-6.20); Red Cell Distribution Width 14.6 % (11.5-14.5)
--- NOTE | 2024-08-28 05:21 | PC.NURSE ---
Pt presents to ED c/o SOB and bilateral leg swelling, onset 3 days ago. Pt HX CHF taking lasix but states Lasix have not been working . Pt appears lethargic, tachycardiac and increase work of breathing. Pt placed on diagnostic cardiac sonographer, and continuos pulse oximeter. IV inserted and blood drawn at this time.
[2024-08-28 05:29] LABS: Alanine Aminotransferase 58 U/L (6-50); Alkaline Phosphatase 97 U/L (38-126); Anion Gap 9 mmol/L (4-12); Aspartate Amino Transferase 73 U/L (17-59); Bilirubin,Total 1.8 mg/dL (0.2-1.3); Blood Urea Nitrogen 40 mg/dL (9-20); Calcium 8.9 mg/dL (8.4-10.2); Carbon Dioxide 27 mmol/L (22-30); Chloride 104 mmol/L (98-107); Estimated CRCL calculation 47 ml/min; Estimated Glomerular Filt Rate 41; Glucose 89 mg/dL (65-110); Potassium 4.6 mmol/L (3.4-5.0); Sodium 140 mmol/L (137-145)
[2024-08-28 06:19] LABS: Influenza A QL RT-PCR Negative (Negative); Influenza B QL RT-PCR Negative (Negative); RSV RNA, RT-PCR Negative (Negative); SARS-CoV-2 RNA PCR Negative (Negative)
--- NOTE | 2024-08-28 07:46 | ED_ITS ---
HPI - SOB/Dyspnea General Chief Complaint: Shortness of Breath/Dyspnea Stated Complaint: chf - bilateral leg swelling Time Seen by Provider: 08/28/24 07:45 Source: patient Limitations: no limitations History of Present Illness HPI Narrative: Patient presents with bilateral leg swelling of 3 days duration. Had been taking Lasix, believes 40mg daily but thinks stopped working. Is short of breath and urinating on self. No changes to dose recently. Does not have a PCP so out of a lot of his medications, but does state has been taking Lasix. On albuterol and Brezzia. Had been on Symbicort but this was discontinued. History of lung damage due to asbestos. Chest pain when coughs which is dry. Not on anticoagulation. No fevers. Had chills earlier. No prior BIPAP or intubation. Related Data Home Medications ?Medication ?Instructions ?Recorded ?Confirmed ?Last Taken ?Type aspirin 81 mg tablet 81 mg PO DAILY 03/06/24 08/28/24 07/13/24 History Allergies Allergy/AdvReac Type Severity Reaction Status Date / Time Sulfa (Sulfonamide Allergy Mild Rash Verified 08/28/24 12:39 Antibiotics) [facility] Past Medical History Medical History (Updated 09/01/24 @ 09:10 by Doug Lynch MD) Cerebral infarction Severe chronic obstructive pulmonary disease With good response to bronchodilator noted on PFTs 10/2020 Toe fracture, left multiple toes Bronchitis Nose fracture Surgical History Surgical History History of tonsillectomy Family History Family History Mother , in her 80s Diabetes mellitus Lung cancer COPD (chronic obstructive pulmonary disease) Father , at 83 years old Acute myocardial infarction Biventricular ICD (implantable cardioverter-defibrillator) in place COPD (chronic obstructive pulmonary disease) Sibling Lung cancer Social History Social History Social History: Patient was 3 times. His last between 3 and 5 years ago cancer. He then had a girlfriend who also developed cancer and in August of 2022. 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 He briefly smoked when he was younger. He denies any significant alcohol use. He denies any illicit substance use. Code status: DNR/DNI (per patient request) The patient reports he does not have a surrogate decision maker and has no family members left. He does not have any friends he feels close enough to ask to make that type of decision. Years smoked: 5 Smoking status: Never smoker Alcohol intake: never Substance use: current Substance use type: marijuana Last use: 08/21/24 Do You Feel Safe in your Home?: Yes Lack of Transportation: No Lack of Food: Often True Current Housing: I Do Not Have Housing Concerned About Future Housing: Decline to Answer Difficulty Paying Gas/Electric Bills: Decline to Answer Difficulty Paying for Meds: Decline to Answer Currently Unemployed: Decline to Answer Education: Don't Know Difficulty w/ Childcare or Family Care: Decline to Answer Gender identity (if verbalized by the patient): Male Spiritual care concerns: No Exam 2 Const: General: no acute distress and alert; No diaphoretic O rientation/consciousness: patient oriented x3 Limitations: no limitations HENMT: Head: normal to inspection, no contusions, no hematomas and no lacerations Other: gross auditory acuity intact Eyes: Direct Ophthalmoscopy: no photophobia Neck: Neck: no meningeal signs Resp: Effort & Inspection: normal respiratory effort, not labored, no retractions, not tachypneic and no use of accessory muscles Auscultation: d iminished lung sounds Other: basilar crackles Cardio: Rate: tachycardic Rhythm: regular rhythm GI: GI Palp: Yes Soft to palpation Neuro: General: patient oriented x3 and moves all extremities Speech: n ormal speech Other: able to stand/bear weight Extrem: General: edema bilateral (lower extremity) Psych: Other: congruent mood and affect Course Vital Signs Vital signs: Vital Signs Temperature 97.9 F 08/28/24 00:36 Pulse Rate 112 H 08/28/24 00:36 Respiratory Rate 20 08/28/24 00:36 Blood Pressure 133/91 H 08/28/24 00:36 Pulse Oximetry 100 08/28/24 00:36 Temperature 98.3 F 09/01/24 17:30 Pulse Rate 61 09/01/24 18:23 Respiratory Rate 22 H 09/01/24 18:23 Blood Pressure 110/84 09/01/24 18:23 Pulse Oximetry 96 09/01/24 18:23 Oxygen Delivery Room Air 09/01/24 12:00 Oxygen Flow Rate 2 09/01/24 04:00 Fraction of Inspired Oxygen 21 09/01/24 12:00 MDM - SOB/Dyspnea MDM Narrative Medical decision making narrative: Patient presents with bilateral lower extremity edema and shortness of breath. Believes lasix not working. Also on albuterol and Brezzia. In the ED he is afebrile with VS that show tachycardia and mild elevation in DBP. Social determinants of health that affect care: housing instability/homelessness. Financial instability also limiting medication compliance. Lasix 40mg IV ordered. Cr has ranged from 1.02 -1.79 thus today's likely represents NITA versus NITA on CKD, likely the the former given there had been improvement in kidney function prior to this. Troponin normal. BNP >15,000; similar previously. Urine with bacteria, WBC, and 1+ leukocyte esterase. This is likely a contributor to him being incontinent, especially since taking Lasix. First dose ceftriaxone given; no prior culture for review. Dimer mildly elevated but NEGATIVE by YEARS criteria so PE excluded and will not proceed with CT imaging. Spoke with patient and discussed admission; concurs. Spoke with hospitalist Dr Hare who accepts admission. Med surg tele bed appropriate. Will defer empirically consulting cardiology and await Dr Hare's assessment given negative troponin. Differential Diagnosis Differential diagnosis: Likely acute exacerbation of chronic obstructive airways disease, congestive heart failure, community acquired pneumonia, pulmonary embolism and other (acute viral syndrome) Lab Data Attestation: I reviewed the patient's lab results. 09/01/24 03:38 09/01/24 03:38 Labs: Lab Results 08/28/24 08/28/24 08/28/24 Range/Units 05:10 05:11 05:12 WBC 8.0 (4.5-10.0) K/mm3 RBC 4.55 L (4.6-6.20) M/mm3 Hgb 14.0 (14.0-18.0) g/dL Hct 45.9 (42.0-52.0) % MCV 100.9 H (80-100) fl MCH 30.8 (26-34) pg MCHC 30.5 L (32-36) g/dl RDW 14.6 H (11.5-14.5) % Plt Count 308 (150-375) k/mm3 MPV 9.4 (7.4-10.4) fl Immature Gran % (Auto) 0.3 (0-0.5) % Neut % (Auto) 61.3 (45.5-73.1) % Lymph % (Auto) 29.2 (18.3-44.2) % Gregg % (Auto) 6.5 (2.6-8.5) % Eos % (Auto) 2.1 (0-4.4) % Baso % (Auto) 0.6 (0.2-1.2) % Lymph # (Auto) 2.32 (0.9-3.2) K/mm3 Gregg # (Auto) 0.5 (0.1-0.6) K/mm3 Eos # (Auto) 0.2 (0-0.3) K/mm3 Baso # (Auto) 0.1 (0.0-0.1) K/mm3 Abs Immat Gran (auto) 0.02 (0.00-0.031) K/mm3 Absolute Neuts (auto) 4.9 (1.3-6.7) K/mm3 Absolute Nucleated RBC 0.000 (0.0-0.012) K/mm3 Nucleated RBC % 0.0 (0.0-0.2) % D-Dimer (<0.48) ug/mL Sodium 140 (137-145) mmol/L Potassium 4.6 (3.4-5.0) mmol/L Chloride 104 (98-107) mmol/L Carbon Dioxide 27 (22-30) mmol/L Anion Gap 9 (4-12) mmol/L BUN 40 H (9-20) mg/dL Creatinine 1.68 H (0.7-1.3) mg/dL Estim Creat Clear Calc 47 ml/min Estimated GFR 41 L (59 - ) Glucose 89 (65-110) mg/dL Calcium 8.9 (8.4-10.2) mg/dL Magnesium (1.6-2.3) mg/dL Total Bilirubin 1.8 H (0.2-1.3) mg/dL AST 73 H (17-59) U/L ALT 58 H (6-50) U/L Alkaline Phosphatase 97 (38-126) U/L Troponin I 0.029 (0.000-0.034) ng/mL NT-Pro-B Natriuret Pep 20753 H (19.9-100) pg/mL Total Protein 8.0 (6.3-8.2) g/dL Albumin 4.0 (3.5-5.1) g/dL Urine Color (Yellow) Urine Appearance (Clear) Urine pH (5.0-9.0) Ur Specific [place] (1.001-1.035) Urine Protein (Negative) mg/dL Urine Glucose (UA) (Negative) mg/dL Urine Ketones (Negative) mg/dL Ur Blood (Man) (Negative) Urine Nitrate (Negative) Urine Bilirubin (Negative) Urine Urobilinogen (<2.0) mg/dL Leukocyte Esterase Rfl (Negative) ERMA/UL Urine RBC (0-2) /hpf Urine WBC (0-3) /hpf Ur Squamous Epith Cells (Few) /hpf Urine Bacteria /hpf Urine Casts Influenza A (RT-PCR) Negative (Negative) Influenza B (RT-PCR) Negative (Negative) RSV (RT-PCR) Negative (Negative) SARS-CoV-2 RNA (RT-PCR) Negative (Negative) 08/28/24 08/28/24 Range/Units 05:18 08:49 WBC (4.5-10.0) K/mm3 RBC (4.6-6.20) M/mm3 Hgb (14.0-18.0) g/dL Hct (42.0-52.0) % MCV (80-100) fl MCH (26-34) pg MCHC (32-36) g/dl RDW (11.5-14.5) % Plt Count (150-375) k/mm3 MPV (7.4-10.4) fl Immature Gran % (Auto) (0-0.5) % Neut % (Auto) (45.5-73.1) % Lymph % (Auto) (18.3-44.2) % Gregg % (Auto) (2.6-8.5) % Eos % (Auto) (0-4.4) % Baso % (Auto) (0.2-1.2) % Lymph # (Auto) (0.9-3.2) K/mm3 Gregg # (Auto) (0.1-0.6) K/mm3 Eos # (Auto) (0-0.3) K/mm3 Baso # (Auto) (0.0-0.1) K/mm3 Abs Immat Gran (auto) (0.00-0.031) K/mm3 Absolute Neuts (auto) (1.3-6.7) K/mm3 Absolute Nucleated RBC (0.0-0.012) K/mm3 Nucleated RBC % (0.0-0.2) % D-Dimer 0.82 H (<0.48) ug/mL Sodium (137-145) mmol/L Potassium (3.4-5.0) mmol/L Chloride (98-107) mmol/L Carbon Dioxide (22-30) mmol/L Anion Gap (4-12) mmol/L BUN (9-20) mg/dL Creatinine (0.7-1.3) mg/dL Estim Creat Clear Calc ml/min Estimated GFR (59 - ) Glucose (65-110) mg/dL Calcium (8.4-10.2) mg/dL Magnesium 2.1 (1.6-2.3) mg/dL Total Bilirubin (0.2-1.3) mg/dL AST (17-59) U/L ALT (6-50) U/L Alkaline Phosphatase (38-126) U/L Troponin I (0.000-0.034) ng/mL NT-Pro-B Natriuret Pep (19.9-100) pg/mL Total Protein (6.3-8.2) g/dL Albumin (3.5-5.1) g/dL Urine Color Yellow (Yellow) Urine Appearance Cloudy H (Clear) Urine pH 5.0 (5.0-9.0) Ur Specific [place] 1.017 (1.001-1.035) Urine Protein 1+ H (Negative) mg/dL Urine Glucose (UA) Negative (Negative) mg/dL Urine Ketones Negative (Negative) mg/dL Ur Blood (Man) Negative (Negative) Urine Nitrate Negative (Negative) Urine Bilirubin Negative (Negative) Urine Urobilinogen 1.0 (<2.0) mg/dL Leukocyte Esterase Rfl 1+ H (Negative) ERMA/UL Urine RBC 0-2 (0-2) /hpf Urine WBC 21-50 H (0-3) /hpf Ur Squamous Epith Cells None seen (Few) /hpf Urine Bacteria 1+ H /hpf Urine Casts 3-5 Influenza A (RT-PCR) (Negative) Influenza B (RT-PCR) (Negative) RSV (RT-PCR) (Negative) SARS-CoV-2 RNA (RT-PCR) (Negative) Imaging Data Radiologist's impression: IMPRESSION: 1. Likely congestive heart failure with cardiomegaly and mild pulmonary edema. ECG Data EKG #1: Attestation: I personally reviewed and interpreted this ECG as follows: ECG completion date: 08/28/24 ECG completion time: 00:39 Interpretation: Prepopulated algorithm suggests Aflutter/tachycardia however there are P wavesw that precede QRS complexes consistent with a sinus tachycardia given rate 106. Good R wave progression across precordial leads. ST depression in II but not in III or AVF. T wave inversion in V5 and V6. Discharge Plan Discharge Clinical Impression: Acute on chronic heart failure, UTI (urinary tract infection), Encounter for medication refill, Bilateral leg edema, Edema of scrotum Patient Disposition: Still a Patient Condition: Stable
--- OUTSIDE RECORDS SUMMARY | 2024-08-28 07:54 | XMS_ITS | Encounter Summary ---
Author Organization 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
--- OUTSIDE RECORDS SUMMARY | 2024-08-28 07:54 | XMS_ITS | CONTINUITY OF CARE DOCUMENT ---
Author Name yareliskyara maci Address Unknown Organization [facility] Address [address] [facility] [address] [place] [address] Phone [phone] Care Team Providers Care Hand Molder Name Role Phone Zion Gaspar MD Unavailable [phone] RICO ROBERSON MD Unavailable [phone] PROBLEMS Condition Status Date Provider Notes Cardiology examination active Zion [place] CHF active Zion Gaspar MD Shortness of breath active Zion Gaspar MD COPD active Zion Gaspar MD ENCOUNTERS Date Type Provider Location Encounter Diag nosis - In-person encounter Office Visit Zion Gaspar MD [place] [facility] Cardiology examinationCHFShortness of breathCOPD VITAL SIGNS [...] Payer name Policy type / Coverage type [place] [employer] party [place] MEDIC[place] PART B Medicare [id number] [facility] Medicaid 2 [id number] ADVANCE DIRECTIVES Name Date DISCUSSED - NO DECISION MADE TREATMENT PLAN Date Name Performer Cardiology Riccardo Chatman Cardiology: H is updated medication list for this problem includes: Carvedilol 6.25 Mg Tablet (Carvedilol) ..... Take 1 tablet by mouth twice a day Furosemide 20 Mg Tablet (Furosemide) ..... Take 1 tablet by mouth once a day Riccardo Chatman Cardiology:Pt had re cent admission to [facility] with new onset CHF. Per pt, [...]
--- OUTSIDE RECORDS SUMMARY | 2024-08-28 07:54 | XMS_ITS | Clinical Summary ---
Author Organization [facility] Address [address] [place] [id number] Care Team Providers Care Pottery Decoration Designer Name Role Phone Unavailable Primary Care Provider [...]
--- OUTSIDE RECORDS SUMMARY | 2024-08-28 07:54 | XMS_ITS | Clinical Summary ---
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 Male hypogonadism 01/05/2020 Vitamin D deficiency 06/28/2019 [...] - 08/13/2024 8:00 PM CDT Hospital Encounter [address] [phone] Kiel Oliveira MD Heath, MD Vashti Pierson, MD Kosta Uriarte, MD Agustin Vargas Cheuk Ho Jeffrey, MD Liu, Debbi Chand MD Acute on chronic congestive heart failure, unspecified heart failure type (HCC) (Primary Dx); NITA (acute kidney injury) Discharge Disposition: Left Against Medical Advice 07/21/2024 Orders Only [facility] Medical Group Cardiology [address] [place] [phone] Jill Lundberg NP 07/16/2024 Orders Only [facility] Health Information Management [address] [place] [phone] Jill Lundberg NP 06/09/2024 11:00 AM SALESPERSON NEW CARS Office Visit [facility] Medical Group Cardiology [address] [place] [phone] Jill Lundberg, ISAMAR Nonischemic cardiomyopathy (HCC) (Primary [...] Tobacco: Never Tobacco Cessation:Counseling Given: Not Answered [facility] Utilities Answer Date Recorded In [...] often do you attend chur ch or hindu services? Never 08/12/2024 Do you belong to any clubs o r organizations such as protestant groups, unions, fraternal or athletic groups, or [...] any time in the past 12 m [facility], were you homeless or living in a half-way (including now)? Yes 08/13/2024 Personal Safety Answer Date Recorded Have you ever been in or are you currently in a harmful physical or emotional relationship or is someone making you feel afraid or unsafe? Denies 08/11/2024 Sex and Gender Information Value Date Recorded Sex Assigned at Not on file Legal Sex Male 6:59 AM SALESPERSON NEW CARS Gender Identity Not on file Sexual Orientation [...] MD LAB BLOOD ORDERABLES Final R esult [facility] Department [place] [address] * (ABNORMAL) Basic metabolic panel (08/13/2024 4:30 AM CDT) Sodium 140 135 - 145 mmol/L Potassium, pl 3.7 3.3 - 4.9 mmol/L [facility] Chloride 101 97 - 110 mmol/L [facility] CO2 33(H) 22 - 32 mmol/L [facility] Anion gap 6 2 - 15 mmol/L [facility] BUN 35(H) 6 - 25 mg/dL [facility] Creatinine 1.35(H) 0.80 - 1.30 mg/dL [facility] Glucose 125 70 - 199 mg/dL [facility] Comment: Interpretive Data Fasting glucose >/= [...] 2022. Calcium 9.2 8.5 - 10.3 mg/dL [facility] Blood 08/13/2024 4:30 AM CDT 08/13/2024 5:41 AM CDT us Debbi Joe MD LAB BLOOD ORDERABLES Final R esult [facility] [place] [address] * TRANSTHORACIC ECHO (TTE) COMPLETE W DOPPLER/CF W CONTRAST (08/12/2024 11:33 AM CDT) EF Mod BP 27 % CONS SCIMAGE Anatomical Region Laterality Modality Ultrasound 08/12/2024 10:2 4 AM CDT Narrative 08/12/2024 5:51 PM CDT [facility] [place] [address] Transthoracic Echocardiographic Report Patient Name: CELINA PAK W : 1955 (69y 2m) Gender: M Study Date: 08/12/2024 10:24:42 AM Ht(Inch): 72 Wt(Lb): 212.96 BSA: 2.22 [employer]: Silva Angela Location: [id number] Order Provider: ALIYA VELEZ Heart Rate: 90 [...] Note Celina Rinaldi MD PhD - 08/12/2024 [facility] Card[place] [address] Transthoracic Echocardiographic Report Patient Name: CELINA PAK W : 1955 (69y 2m) Gender: M Study Date: 08/12/2024 10:24:42 AM Ht(Inch): 72 Wt(Lb): 212.96 BSA: 2.22 [employer]: Silva Angela Location: [place] [address] Order Provider:ALIYA VELEZ Heart Rate: 90 BMI: [...] LA Length 4C 6.60 cm MV Decel Trqh870.12 msec [ 104.00 - 258.00 ] LA [...] mmHg RA Volume Index 50.89 ml/m2 MR GHO698.1 cm RVOT Diam 4.90 cm TR Peak [...] Fi nal Result [facility] Department [place] [address] * (ABNORMAL) eGFR (08/11/2024 9:17 PM [...] ORDERABLES Fi nal Result Performing Organization Address City/[facility]/ZIP Co de Phone Number [facility] [place] [address] * Magnesium (08/11/2024 9:17 PM CDT) Pathologist [facility] Magnesium 1.9 1.4 - 2.5 mg/dL Blood 08/11/2024 9:17 PM CDT 08/11/2024 9:51 PM CDT Aliya Velez MD LAB BLOOD ORDERABLES Fi nal Result Performing Organization Address City/[facility]/ZIP Co de Phone Number [facility] [place] [address] * (ABNORMAL) Basic metabolic panel (08/11/2024 9:17 PM CDT) Sodium 141 135 - 145 mmol/L Potassium, pl 4.1 3.3 - 4.9 mmol/L [facility] Comment:Hemolyzed; Potassium value may be falsely elevated by as much as 0.3-0.5 mmol/L. Suggest redraw and reanalysis. Chloride 97 97 - 110 mmol/L [facility] CO2 33(H) 22 - 32 mmol/L [facility] Anion gap 11 2 - 15 mmol/L [facility] BUN 34(H) 6 - 25 mg/dL [facility] Creatinine 1.60(H) 0.80 - 1.30 mg/dL [facility] Glucose 81 70 - 199 mg/dL [facility] Comment: Interpretive Data Fasting glucose >/= [...] 2022. Calcium 9.3 8.5 - 10.3 mg/dL [facility] Blood 08/11/2024 9:17 PM CDT 08/11/2024 9:51 PM CDT Aliya Velez MD LAB BLOOD ORDERABLES nal Result [facility] Department [place] [address] * (ABNORMAL) Drugs of Abuse Screen, Urine with Reflex Confirmation (08/11/2024 9:43 AM CDT) Pathologist [facility] Amphetamine, ur Screen Positive, presumptive (A) CutOff [...] Cocaine, ur Not Detected CutOff 150ng/mL [facility] Comment: Interpretive Data - Cocaine: Samples containing [...] Oxycodone, ur Not Detected CutOff 100ng/mL [facility] Comment: Interpretive Data - Oxycodone: Samples containing greater than 100 ng/mL oxycodone or other cross-reacting compounds are reported as positive. False positive and false negative results are possible. Confirmatory testing required for definitive results. Current Interpretive Data was last reviewed 2022. Phencyclidine, ur Not Detected CutOff 25 ng/mL [facility] Comment: Interpretive Data - Phencyclidine: Samples containing greater than 25 ng/mL phencyclidine or other cross-reacting compounds are reported as positive. False positive and false negative results are possible. Confirmatory testing required for definitive results. Current Interpretive Data was last reviewed 2022. Urine Creatinine 9 mg/dL [facility] Comment: Interpretive Data Urine Creatinine: < 10 mg/dL is extremely dilute = or > 10 but < 20 mg/dL is dilute = or > 20 mg/dL is normal Current Interpretive Data was last revised on 2017. Urine 08/11/2024 9:43 AM CDT 08/11/2024 10:49 AM CDT N[facility]ative [facility] - 08/11/2024 11:54 AM CDT Drug of Abuse screening is performed by immunoassay for medical purposes only. This is not to be used for Pain Management purposes. If Detected, confirmation testing will be performed for Amphetamines, Cocaine, Fentanyl, Methadone, Opiates, Oxycodone or Phencyclidine. Lucie Tai NP LAB URINE ORDERABLES Final Result [facility] Department [place] [address] * (ABNORMAL) Amphetamine Confirmation, Urine (08/11/2024 9:43 [...] needed. Performance characteristics were determined by the [facility] in a manner consistent with CLIA requirement and has not been cleared or approved by the U.S. Food and Drug Administration. Current interpretive data was last revised on 2020. Urine 08/11/2024 9:43 AM CDT 08/11/2024 11:01 AM CDT Lucie Tai NP LAB URINE ORDERABLES Final Result [facility] [place] [address] * Troponin I high-sensitivity 2-hour (08/11/2024 3:24 AM CDT) Trop I hs 25 <=35 ng/L Comment: Interpretive Data For further hscTnI resources including the diagnostic algorithm and an aid in interpretation, copy and paste this link: https://bjhlab.testcatalog.org/show/hsTrop-1 Current Interpretive Data last revised 2019. Trop I hs delta See Comment ng/L [facility] Comment:Inappropriate collec tion time to report a delta. Trop I hs pct delta See Comment % [facility] Comment:Inappropriate collec tion time to report a delta. Trop I hs interp See Comment [facility] Comment:Inappropriate collec tion time to report a delta. Blood 08/11/2024 3:24 AM CDT 08/11/2024 3:36 AM CDT us Melly Moctezuma MD LAB BLOOD ORDERABLES Final Result Performing Organization Address City/[facility]/ZIP Co de Phone Number [facility] Department [place] [address] * (ABNORMAL) Pro B-type natriuretic peptide (08/11/2024 [...] ORDERABLES Final Re sult [facility] [place] [address] * XR Chest PA Lateral 2 Views [...] ORDERABLES Final Re sult Performing Organization Address City/[facility]/ZIP Co de Phone Number [facility] [place] [address] * (ABNORMAL) eGFR (08/11/2024 12:11 AM CDT) [...] ORDERABLES Final Re sult Performing Organization Address City/[facility]/ZIP Co de Phone Number [facility] [place] [address] * Differential, auto (08/11/2024 12:11 AM CDT) Neutrophil abs 4.47 1.50 - 6.50 K/cumm Imm gran abs 0.02 0.00 - 0.10 K/cumm [facility] Lymphocyte abs 1.79 0.80 - 3.30 K/cumm [facility] Monocyte abs 0.50 0.20 - 0.80 K/cumm [facility] Eosinophil abs 0.24 0.00 - 0.50 K/cumm [facility] Basophil abs 0.07 0.00 - 0.10 K/cumm [facility] Neutrophil pct 63.0 % [facility] Comment: Interpretive Data Percent cell count reference ranges are not reported, since discordance with absolute values may lead to misinterpretation of CBC data. Current Interpretive Data was last revised on 2017. Imm gran pct 0.3 % [facility] Comment: Interpretive Data Percent cell count reference ranges are not reported, since discordance with absolute values may lead to misinterpretation of CBC data. Current Interpretive Data was last revised on 2017. Lymphocyte pct 25.2 % [facility] Comment: Interpretive Data Percent cell count reference ranges are not reported, since discordance with absolute values may lead to misinterpretation of CBC data. Current Interpretive Data was last revised on 2017. Monocyte pct 7.1 % [facility] Comment: Interpretive Data Percent cell count reference ranges are not reported, since discordance with absolute values may lead to misinterpretation of CBC data. Current Interpretive Data was last revised on 2017. Eosinophil pct 3.4 % [facility] Comment: Interpretive Data Percent cell count reference ranges are not reported, since discordance with absolute values may lead to misinterpretation of CBC data. Current Interpretive Data was last revised on 2017. Basophil pct 1.0 % [facility] Comment: Interpretive Data Percent cell count reference ranges are not reported, since discordance with absolute values may lead to misinterpretation of CBC data. Current Interpretive Data was last revised on 2017. Blood 08/11/2024 12:1 1 AM CDT 08/11/2024 12:27 AM CDT Kiel Oliveira MD LAB BLOOD ORDERABLES Final Re sult [facility] [place] [address] * (ABNORMAL) CBC with auto differential (08/11/2024 12:11 AM CDT) [facility] WBC 7.09 3.80 - 9.90 K/cumm Hgb 13.2 13.0 - 17.5 g/dL [facility] Hct 41.2 38.9 - 50.3 % [facility] Plt 192 150 - 400 K/cumm [facility] MPV 10.0 9.1 - 12.3 fL [facility] RBC 4.20(L) 4.30 - 5.80 M/cumm [facility] MCV 98.1(H) 81.3 - 96.4 fL [facility] MCH 31.4 27.1 - 33.3 pg [facility] MCHC 32.0(L) 32.3 - 35.7 g/dL [facility] RDW CV 14.7 11.1 - 14.9 % [facility] RDW SD 53.1(H) 35.7 - 48.1 fL [facility] NRBC abs 0.00 0.00 - 0.01 K/cumm [facility] Blood 08/11/2024 12:1 1 AM CDT 08/11/2024 12:27 AM CDT Kiel Oliveira MD LAB BLOOD ORDERABLES Final Re sult Performing Organization Address [facility]/ZIP Co de Phone Number [facility] [place] [address] * (ABNORMAL) Comprehensive metabolic panel (08/11/2024 12:11 AM CDT) [facility] Sodium 141 135 - 145 mmol/L Potassium, pl 4.8 3.3 - 4.9 mmol/L [facility] Chloride 103 97 - 110 mmol/L [facility] CO2 32 22 - 32 mmol/L [facility] Anion gap 6 2 - 15 mmol/L [facility] BUN 32(H) 6 - 25 mg/dL [facility] Creatinine 1.44(H) 0.80 - 1.30 mg/dL [facility] Glucose 103 70 - 199 mg/dL [facility] Comment: Interpretive Data Fasting glucose >/= [...] 2022. Calcium 9.5 8.5 - 10.3 mg/dL [facility] Bilirubin, total 0.8 0.1 - 1.2 mg/dL [facility] Protein, pl 7.3 6.5 - 8.5 g/dL [facility] Albumin 3.8 3.5 - 5.0 g/dL [facility] Alk phos 95 40 - 130 Units/L [facility] ALT 56(H) 7 - 55 Units/L [facility] AST 49 10 - 50 Units/L [facility] Blood 08/11/2024 12:1 1 AM CDT 08/11/2024 12:26 AM CDT Kiel Oliveira MD LAB BLOOD ORDERABLES Final Re sult [facility] Department [place] [address] * ECG 12-LEAD (08/10/2024 11:56 PM CDT) [...] Oliveira MD ECG ORDERABLES Final Result [facility] * Cardiology Document Scan (07/17/2024 8:52 AM CDT) Anatomical Region Laterality Modality Other us Roberto Godinez MD CV CARDIAC SERVICES PROC EDURES Final Result * Cardiology Document Scan (07/16/2024 8:45 AM CDT) Anatomical Region Laterality Modality Other Jill Janet Lundberg NP CV CARDIAC SERVICES PROCEDUR ES Final Result * Cardiology Document Scan (07/16/2024) Anatomical Region Laterality Modality Other Jill Joycee Tamika PACKAGING SPECIALIST CV CARDIAC SERVICES PROCEDUR ES Final Result [...] last revised 21. Testing performed by: [facility], [address] [place] [address]., [id number] Blood 12/12/2023 10:0 0 AM CDT 12/12/2023 12:16 PM CDT Lisa JACINTO LAB BLOOD ORDERABLES [facility] al Result Performing Organization Address City/State/ZIP Co tx Phone Number [facility] [address] [facility] Department [place] [address] from Last 3 Months or Most Recently Relevant to Health Maintenance Insurance [employer] [facility] MEDICARE IDPA MEDICARE IDPA Advance Directives For more information, please contact: [phone] * Full Code (Latest Code Status on File) Date Activated Date Inactivated Comments 08/11/2024 5:02 PM 08/14/2024 12:27 AM * Full Code Date Activated Date Inactivated Comments 11/03/2023 4:46 PM 11/06/2023 6:41 PM * Full Code Date Activated Date Inactivated Comments 07/18/2023 11:06 AM 07/19/2023 7:36 PM Care Teams Carbon Grinder Relationship Specialty [place] [address] [address] Consulting Physician Cardiovascular Disease 07/19/23
--- OUTSIDE RECORDS SUMMARY | 2024-08-28 07:54 | XMS_ITS | Referral Summary ---
Author Organization [facility] Address [address] [place] [address] Care Team Providers Care Parts Counter Sales Person Name Role Phone Zion Gaspar MD Unavailable Encounters Date Type Department Care Team Description 08/11/2024 1:05 AM CDT - 08/13/2024 8:00 PM CDT Hospital Encounter [address] [phone] Kiel Oliveira MD Heath, MD Vashti Pierson, MD Kosta Uriarte, MD Agustin Vargas Che[place] Ho Jeffrey, MD Liu, Debbi Chand MD Acute on chronic congestive heart failure, unspecified heart failure type (HCC) (Primary Dx); NITA (acute kidney injury) Discharge Disposition: Left Against Medical Advice 07/21/2024 Orders Only [facility] Medical Group Cardiology [address] [facility] [address] [place] [phone] Jill Lundberg NP 07/16/2024 Orders Only [facility] [place] [address] [place] [phone] Jill Lundberg NP 06/09/2024 11:00 AM FOAMITE MIXER Office Visit [facility] Medical Group Cardiology [address] [place] [phone] Jill Lundberg NP Nonischemic cardiomyopathy (HCC) [...] to cardiology Coronary artery disease invo lving [place] coronary artery of [place] heart without angina pectoris 12/12/2023 Assessment & [...] refilled today Patient needs referral to new air twist operator. Male hypogonadism 01/05/2020 Vitamin D deficiency [...] Tobacco: Never Tobacco Cessation:Counseling Given: Not Answered [facility] Utilities Answer Date Recorded In the past 12 months has th e [employer], gas, oil, or water company threatened to [...] often do you attend chur ch or yazidism services? Never 08/12/2024 Do you belong to any clubs o r organizations such as congregation groups, unions, fraternal or athletic groups, or [...] any time in the past 12 [place], were you homeless or living in a prison (including now)? Yes 08/13/2024 Personal Safety Answer Date Recorded Have you ever been in or are you currently in a harmful physical or emotional relationship or is someone making you feel afraid or unsafe? Denies 08/11/2024 Sex and Gender Information Value Date Recorded Sex Assigned at Not on file Legal Sex Male 6:59 AM FOAMITE MIXER Gender Identity Not on file Sexual Orientation [...] MD LAB BLOOD ORDERABLES Final R esult [facility] Department [place] [address] * (ABNORMAL) Basic metabolic panel (08/13/2024 4:30 AM CDT) Sodium 140 135 - 145 mmol/L Potassium, pl 3.7 3.3 - 4.9 mmol/L [facility] Chloride 101 97 - 110 mmol/L [facility] CO2 33(H) 22 - 32 mmol/L [facility] Anion gap 6 2 - 15 mmol/L [facility] BUN 35(H) 6 - 25 mg/dL [facility] Creatinine 1.35(H) 0.80 - 1.30 mg/dL [facility] Glucose 125 70 - 199 mg/dL [facility] Comment: Interpretive Data Fasting glucose >/= 126 [...] Calcium 9.2 8.5 - 10.3 mg/dL [facility] Blood 08/13/2024 4:30 AM CDT 08/13/2024 5:41 AM CDT us Debbi Joe MD LAB BLOOD ORDERABLES Final R esult [facility] Department [place] [address] * TRANSTHORACIC ECHO (TTE) COMPLETE W DOPPLER/CF W CONTRAST (08/12/2024 11:33 AM CDT) EF Mod BP 27 % CONS SCIMAGE Anatomical Region Laterality Modality Ultrasound 08/12/2024 10:2 4 AM CDT Narrative 08/12/2024 5:51 PM CDT [facility] Cardiac [place] [address] Transthoracic Echocardiographic Report Patient Name: CELINA PAK W : 1955 (69y 2m) Gender: M Study Date: 08/12/2024 10:24:42 AM Ht(Inch): 72 Wt(Lb): 212.96 BSA: 2.22 Crochet Machine Operator: Silva Angela Location: [id number] Order Provider: ALIYA VELEZ Heart Rate: 90 [...] Note Celina Rinaldi MD PhD - 08/12/2024 [facility] Cardiac Diagnostic [place] [address] Transthoracic Echocardiographic Report Patient Name: CELINA PAK W : 1955 (69y 2m) Gender: M Study Date: 08/12/2024 10:24:42 AM Ht(Inch): 72 Wt(Lb): 212.96 BSA: 2.22 Crochet Machine Operator: Silva Angela Location: [id number] Order Provider:ALIYA VELEZ Heart Rate: 90 BMI: [...] LA Length 4C 6.60 cm MV Decel Szgl237.12 msec [ 104.00 - 258.00 ] LA [...] mmHg RA Volume Index 50.89 ml/m2 MR HFR108.1 cm RVOT Diam 4.90 cm TR Peak [...] ORDERABLES Fi nal Result Performing Organization Address [facility] Co de Phone Number [facility] [place] [address] * (ABNORMAL) eGFR (08/11/2024 9:17 PM CDT) [...] ORDERABLES Fi nal Result Performing Organization Address [facility] Co de Phone Number [facility] Department [place] [address] * Magnesium (08/11/2024 9:17 PM CDT) Magnesium 1.9 1.4 - 2.5 mg/dL Blood 08/11/2024 9:17 PM CDT 08/11/2024 9:51 PM CDT Aliya Velez MD LAB BLOOD ORDERABLES Fi nal Result [facility] Department [place] [address] * (ABNORMAL) Basic metabolic panel (08/11/2024 9:17 PM CDT) Pathologist [facility] Sodium 141 135 - 145 mmol/L Potassium, pl 4.1 3.3 - 4.9 mmol/L [facility] Comment:Hemolyzed; Potassium value may be falsely elevated by as much as 0.3-0.5 mmol/L. Suggest redraw and reanalysis. Chloride 97 97 - 110 mmol/L [facility] CO2 33(H) 22 - 32 mmol/L [facility] Anion gap 11 2 - 15 mmol/L [facility] BUN 34(H) 6 - 25 mg/dL [facility] Creatinine 1.60(H) 0.80 - 1.30 mg/dL [facility] Glucose 81 70 - 199 mg/dL [facility] Comment: Interpretive Data Fasting glucose >/= 126 [...] 2022. Calcium 9.3 8.5 - 10.3 mg/dL [facility] Blood 08/11/2024 9:17 PM CDT 08/11/2024 9:51 PM CDT Aliya Velez MD LAB BLOOD ORDERABLES Fi nal Result [facility] Department [place] [address] * (ABNORMAL) Drugs of Abuse Screen, Urine [...] Barbiturates, ur Not Detected CutOff 200ng/mL [facility] Comment: Interpretive Data - Barbiturates: Samples containing greater than 200 ng/mL secobarbital or other cross-reacting barbiturate compounds are reported as positive. False positive and false negative results are possible. Confirmatory testing required for definitive results. Current Interpretive Data was last reviewed 2022. Benzodiazepines, ur Not Detected CutOff 100ng/mL [facility] Comment: Interpretive Data - Benzodiazepines: Samples containing greater than 100 ng/mL nordiazepam or other cross-reacting compounds are reported as positive. False positive and false negative results are possible. Confirmatory testing required for definitive results. Current Interpretive Data was last reviewed 2022. Cannabinoids, ur Not Detected CutOff 50 ng/mL [facility] Comment: Interpretive Data - Cannabinoids: Samples containing greater than 50 ng/mL delta-9 THC -COOH or other cross- reacting compounds are reported as positive. False positive and false negative results are possible. Confirmatory testing required for definitive results. Current Interpretive Data was last reviewed 2022. Cocaine, ur Not Detected CutOff 150ng/mL [facility] Comment: Interpretive Data - Cocaine: Samples containing greater than 150 ng/mL benzoylecgonine or other cross- reacting compounds are reported as positive. False positive and false negative results are possible. Confirmatory testing required for definitive results. Current Interpretive Data was last reviewed 2022. Fentanyl, Ur Not Detected CutOff 5 ng/mL [facility] Comment: Interpretive Data - Fentanyl: Samples containing greater than 5 ng/mL norfentanyl, fentanyl, or other cross-reacting fentanyl compounds are reported as positive. False positive and false negative results are possible. Confirmatory testing required for definitive results. Current Interpretive Data was last reviewed 2023. Methadone, ur Not Detected CutOff 300ng/mL [facility] Comment: Interpretive Data - Methadone: Samples containing greater than 300 ng/mL d,l-methadone or other cross-reacting compounds are reported as positive. False positive and false negative results are possible. Confirmatory testing required for definitive results. Current Interpretive Data was last reviewed 2022. Opiates, ur Not Detected CutOff 300ng/mL [facility] Comment: Interpretive Data - Opiates: Samples containing greater than 300 ng/mL morphine or other cross-reacting compounds are reported as positive. False positive and false negative results are possible. Confirmatory testing required for definitive results. Current Interpretive Data was last reviewed 2022. Oxycodone, ur Not Detected CutOff 100ng/mL [facility] Comment: Interpretive Data - Oxycodone: Samples containing greater than 100 ng/mL oxycodone or other cross-reacting compounds are reported as positive. False positive and false negative results are possible. Confirmatory testing required for definitive results. Current Interpretive Data was last reviewed 2022. Phencyclidine, ur Not Detected CutOff 25 ng/mL [facility] Comment: Interpretive Data - Phencyclidine: Samples containing greater than 25 ng/mL phencyclidine or other cross-reacting compounds are reported as positive. False positive and false negative results are possible. Confirmatory testing required for definitive results. Current Interpretive Data was last reviewed 2022. Urine Creatinine 9 mg/dL [facility] Comment: Interpretive Data Urine Creatinine: < 10 mg/dL is extremely dilute = or > 10 but < 20 mg/dL is dilute = or > 20 mg/dL is normal Current Interpretive Data was last revised on 2017. Urine 08/11/2024 9:43 AM CDT 08/11/2024 10:49 AM CDT Narrative [facility] - 08/11/2024 11:54 AM CDT Drug of Abuse screening is performed by immunoassay for medical purposes only. This is not to be used for Pain Management purposes. If Detected, confirmation testing will be performed for Amphetamines, Cocaine, Fentanyl, Methadone, Opiates, Oxycodone or Phencyclidine. Lucie Tai NP LAB URINE ORDERABLES Final Result Performing Organization Address City/[facility]/ZIP Co de Phone Number [facility] Department [place] [address] * (ABNORMAL) Amphetamine Confirmation, Urine (08/11/2024 9:43 [...] needed. Performance characteristics were determined by the [facility] in a manner consistent with CLIA requirement and has not been cleared or approved by the U.S. Food and Drug Administration. Current interpretive data was last revised on 2020. Urine 08/11/2024 9:43 AM CDT 08/11/2024 11:01 AM CDT Lucie Tai NP LAB URINE ORDERABLES Final Result Performing Organization Address City/[facility]/ZIP Co de Phone Number [facility] Department [place] [address] * Troponin I high-sensitivity 2-hour (08/11/2024 3:24 [...] Moctezuma MD LAB BLOOD ORDERABLES Final Result [facility] Department [place] [address] * (ABNORMAL) Pro B-type natriuretic peptide (08/11/2024 [...] LAB BLOOD ORDERABLES Final Re sult [facility] Department [place] [address] * XR Chest PA Lateral 2 Views [...] LAB BLOOD ORDERABLES Final Re sult [facility] Department [place] [address] * (ABNORMAL) eGFR (08/11/2024 12:11 AM CDT) [...] MD LAB BLOOD ORDERABLES Final Re sult [facility] Department [place] [address] * Differential, auto (08/11/2024 12:11 AM CDT) Neutrophil abs 4.47 1.50 - 6.50 K/cumm Imm gran abs 0.02 0.00 - 0.10 K/cumm [facility] Lymphocyte abs 1.79 0.80 - 3.30 K/cumm [facility] Monocyte abs 0.50 0.20 - 0.80 K/cumm [facility] Eosinophil abs 0.24 0.00 - 0.50 K/cumm [facility] Basophil abs 0.07 0.00 - 0.10 K/cumm [facility] Neutrophil pct 63.0 % [facility] Comment: Interpretive Data Percent cell count reference ranges are not reported, since discordance with absolute values may lead to misinterpretation of CBC data. Current Interpretive Data was last revised on 2017. Imm gran pct 0.3 % [facility] Comment: Interpretive Data Percent cell count reference ranges are not reported, since discordance with absolute values may lead to misinterpretation of CBC data. Current Interpretive Data was last revised on 2017. Lymphocyte pct 25.2 % [facility] Comment: Interpretive Data Percent cell count reference ranges are not reported, since discordance with absolute values may lead to misinterpretation of CBC data. Current Interpretive Data was last revised on 2017. Monocyte pct 7.1 % [facility] Comment: Interpretive Data Percent cell count reference ranges are not reported, since discordance with absolute values may lead to misinterpretation of CBC data. Current Interpretive Data was last revised on 2017. Eosinophil pct 3.4 % [facility] Comment: Interpretive Data Percent cell count reference ranges are not reported, since discordance with absolute values may lead to misinterpretation of CBC data. Current Interpretive Data was last revised on 2017. Basophil pct 1.0 % [facility] Comment: Interpretive Data Percent cell count reference ranges are not reported, since discordance with absolute values may lead to misinterpretation of CBC data. Current Interpretive Data was last revised on 2017. Blood 08/11/2024 12:1 1 AM CDT 08/11/2024 12:27 AM CDT us Kiel Oliveira MD LAB BLOOD ORDERABLES Final Re sult [facility] Department [place] [address] * (ABNORMAL) CBC with auto differential (08/11/2024 12:11 AM CDT) WBC 7.09 3.80 - 9.90 K/cumm Hgb 13.2 13.0 - 17.5 g/dL [facility] Hct 41.2 38.9 - 50.3 % [facility] Plt 192 150 - 400 K/cumm [facility] MPV 10.0 9.1 - 12.3 fL [facility] RBC 4.20(L) 4.30 - 5.80 M/cumm [facility] MCV 98.1(H) 81.3 - 96.4 fL [facility] MCH 31.4 27.1 - 33.3 pg [facility] MCHC 32.0(L) 32.3 - 35.7 g/dL [facility] RDW CV 14.7 11.1 - 14.9 % [facility] RDW SD 53.1(H) 35.7 - 48.1 fL [facility] NRBC abs 0.00 0.00 - 0.01 K/cumm [facility] Blood 08/11/2024 12:1 1 AM CDT 08/11/2024 12:27 AM CDT us Kiel Oliveira MD LAB BLOOD ORDERABLES Final Re sult [facility] Department [place] [address] * (ABNORMAL) Comprehensive metabolic panel (08/11/2024 12:11 AM CDT) Sodium 141 135 - 145 mmol/L Potassium, pl 4.8 3.3 - 4.9 mmol/L [facility] Chloride 103 97 - 110 mmol/L [facility] CO2 32 22 - 32 mmol/L [facility] Anion gap 6 2 - 15 mmol/L [facility] BUN 32(H) 6 - 25 mg/dL [facility] Creatinine 1.44(H) 0.80 - 1.30 mg/dL [facility] Glucose 103 70 - 199 mg/dL [facility] Comment: Interpretive Data Fasting glucose >/= 126 [...] 2022. Calcium 9.5 8.5 - 10.3 mg/dL [facility] Bilirubin, total 0.8 0.1 - 1.2 mg/dL [facility] Protein, pl 7.3 6.5 - 8.5 g/dL [facility] Albumin 3.8 3.5 - 5.0 g/dL [facility] Alk phos 95 40 - 130 Units/L [facility] ALT 56(H) 7 - 55 Units/L [facility] AST 49 10 - 50 Units/L [facility] Blood 08/11/2024 12:1 1 AM CDT 08/11/2024 12:26 AM CDT Kiel Oliveira MD LAB BLOOD ORDERABLES Final Re sult [facility] Department [place] [address] * ECG 12-LEAD (08/10/2024 11:56 PM CDT) [...] ECG ORDERABLES Final Result Performing Organization Address City/[facility]/ZIP Co de Phone Number [facility] * Cardiology Document Scan (07/17/2024 8:52 [...] data last revised 21. Testing performed by: [facility], [address] [place] [address]., [id number] Blood 12/12/2023 10:0 0 AM CDT 12/12/2023 12:16 PM CDT Lisa JACINTO LAB BLOOD ORDERABLES Fin al Result Performing Organization Address City/State/[facility] Co de Phone Number [facility] [address] [facility] Department [place] [address] from Last 3 Months or Most Recently Relevant to Health Maintenance Insurance [employer] [place] [place] MEDICARE [facility] MEDICARE ID[employer] Advance Directives For more information, please contact: [phone] * Full Code (Latest Code Status on File) Date Activated Date Inactivated Comments 08/11/2024 5:02 PM 08/14/2024 12:27 AM * Full Code Date Activated Date Inactivated Comments 11/03/2023 4:46 PM 11/06/2023 6:41 PM * Full Code Date Activated Date Inactivated Comments 07/18/2023 11:06 AM 07/19/2023 7:36 PM Care Teams Parts Counter Sales Person Relationship Specialty [place] [id number] [place] [address] Consulting Physician Cardiovascular Disease 07/19/23
[2024-08-28 07:59] LABS: NT Pro B Type Natriuretic Pept 15800 pg/mL (19.9-100); Troponin I 0.029 ng/mL (0.000-0.034)
[2024-08-28 08:54] LABS: Magnesium 2.1 mg/dL (1.6-2.3)
[2024-08-28] MEDS: FUROSEMIDE INJ 40 MG/4 ML VIAL IV PUSH (08:54)
[2024-08-28 09:00] LABS: Add Urine Microscopic? YES; Appearance Urine Cloudy (Clear); Bacteria Urine 1+ /hpf; Bilirubin Urine Negative (Negative); Blood Urine Negative (Negative); Color Urine Yellow (Yellow); Glucose Urine UA Negative (Negative); Ketones Urine Negative (Negative); Leukocyte Esterase Ur 1+ LEU/UL (Negative); Nitrate Urine Negative (Negative); Protein Urine 1+ mg/dL (Negative); RBC Urine 0-2 /hpf (0-2); Specific Grav Ur 1.017 (1.001-1.035); Squamous Epithelial Cell Urine None Seen /hpf (Few); WBC Urine 21-50 /hpf (0-3)
[2024-08-28 09:11] LABS: D Dimer 0.82 ug/mL (<0.48)
--- NOTE | 2024-08-28 12:19 | ADMGEN ---
This patient, Jeevan Castellanos, was admitted to [facility] Room 324-01. Patient/family oriented to hospital policies and general routines including ID bracelet, bed and alarms, visiting hours, pain management, procedures, bathroom and other care routines, personal items, smoking policy, room service/diet, and visiting hours. Information on how to activate the Rapid Response Team has been discussed. Patient/Family are encouraged to report perceived risks to care and to ask questions if they do not understand what they are told or what they should do. Sharmin MORRISON got report from ER Nurse.
--- NOTE | 2024-08-28 12:21 | P.HP_ITS ---
H&P: HPI History of Present Illness Date/Time: 08/28/24 12:21 Chief Complaint: Lower extremity swelling Narrative: 69-year-old male past medical history of COPD, CKD and CHF not taking his Lasix due to homelessness presents the hospital lower extremity swelling. Patient complains of lower extremity swelling that is causing him pain study presents to the emergency department. Lab work showed a D-dimer of 0.28, BUN of 40, creatinine of 1.68 baseline being around 1.28, total bilirubin of 1.8, AST 73, PTT 58 which are [place] [address]. UA shows 1+ leukocyte esterase, 21-50 wbc' s, 1+ bacteria negative for nitrates. Chest x-ray shows Likely congestive heart failure with cardiomegaly and mild pulmonary edema. EKG shows sinus tach with rate of [address] deviation and moderate T-wave abnormality. Patient was started on IV Rocephin and given 40 mg IV Lasix x1. Review of Systems Review of Systems: 12 systems were reviewed and are negativ e except for as per HPI. [facility] Past Medical History Medical History Severe chronic obstructive pulmonary disease With good response to bronchodilator noted on PFTs 10/2020 Toe fracture, left multiple toes Bronchitis Nose fracture Surgical History Surgical History History of tonsillectomy Family History Family History Mother , in her 80s Diabetes mellitus Lung cancer COPD (chronic obstructive pulmonary disease) Father , at 83 years old Acute myocardial infarction Biventricular ICD (implantable cardioverter-defibrillator) in place COPD (chronic obstructive pulmonary disease) Sibling Lung cancer Social History Social History Social History: Patient was 3 times. His last between 3 and 5 years ago cancer. He then had a girlfriend who also developed cancer and in August of 2022. 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 He briefly smoked when he was younger. He denies any significant alcohol use. He denies any illicit substance use. Code status: DNR/DNI (per patient request) The patient reports he does not have a surrogate decision maker and has no family members left. He does not have any friends he feels close enough to ask to make that type of decision. Years smoked: 5 Smoking status: Never smoker Alcohol intake: never Substance use: current Substance use type: marijuana Last use: 08/21/24 Do You Feel Safe in your Home?: Yes Lack of Transportation: No Lack of Food: Often True Current Housing: I Do Not Have Housing Concerned About Future Housing: Decline to Answer Difficulty Paying Gas/Electric Bills: Decline to Answer Difficulty Paying for Meds: Decline to Answer Currently Unemployed: Decline to Answer Education: Don't Know Difficulty w/ Childcare or Family Care: Decline to Answer Gender identity (if verbalized by the patient): Male Spiritual care concerns: No Meds Home Medications and Allergies Home Medications ?Medication ?Instructions ?Recorded ?Confirmed ?Type aspirin 81 mg tablet 81 mg PO DAILY 03/06/24 08/28/24 History albuterol sulfate 90 mcg/actuation 2 puff inhalation Q4H PRN 05/27/24 08/28/24 Rx aerosol inhaler Shortness Of Breath Or Wheezing #6.7 grams budesonide 160 mcg-glycopyr 9 2 inh inhalation BID #5.9 grams 05/27/24 08/28/24 Rx mcg-formot 4.8 mcg/actuation HFA inhaler (Breztri Aerosphere) sacubitril 24 mg-valsartan 26 mg 1 tab PO Q12HR #60 tabs 07/18/24 08/28/24 Rx tablet (Entresto) furosemide 20 mg tablet 40 mg (2 x 20 mg) PO DAILY #30 tabs 08/01/24 08/28/24 Rx Allergies Allergy/AdvReac Type Severity Reaction Status Date / Time Sulfa (Sulfonamide Allergy Mild Rash Verified 08/28/24 12:39 Antibiotics) Vital Signs Vital Signs - 24 hr 08/28/24 00:36 08/28/24 08:15 08/28/24 09:30 Temperature 97.9 F Pulse Rate 112 H 100 98 Respiratory Rate 20 14 16 Blood Pressure 133/91 H 157/105 H 148/78 H Pulse Oximetry 100 97 97 08/28/24 10:30 08/28/24 11:00 08/28/24 12:09 Temperature 96.8 F L Pulse Rate 94 91 84 Respiratory Rate 16 16 16 Blood Pressure 131/90 125/90 136/95 H Pulse Oximetry 97 100 99 Exam Narrative: General: well appearing, appears stated age. HEENT: normocephalic, atraumatic. Mucous membranes moist. EOMI, PERRLA, bilateral sclera anicteric, no conjunctival injection. Neck supple without JVD, lymphadenopathy, or bruit. Respiratory: clear to ascultation bilaterally. No rales/rhonic/wheezes. Cardiovascular: Regular rate and rhythm, normal S1-S2 upon ascultation. No murmurs, rubs, or clicks. PMI is nondisplaced, capillary refill less than 3 second. Abdomen: Soft, round, no pulsatile masses, nondistended and nontender. No rebound, no guarding. No CVA tenderness, no hepatosplenomegaly. Bowel sounds present to all four quadrants. No high pitch or tinkling sounds, resonant to percussion. Extremities: No cyanosis, clubbing, or edema present RLA. Cranial nerves 2-12 intact without focal deficit. Lower extremity edema Skin: Warm, dry, and intact, without rash, erythema, or lesion. Psych: pleasant, cooperative, normal speech, normal affect, no hallucinations, no dysarthia H&P: Results Labs Labs: Short CBC 08/28/24 Range/Units 05:12 WBC 8.0 (4.5-10.0) K/mm3 Hgb 14.0 (14.0-18.0) g/dL Hct 45.9 (42.0-52.0) % Plt Count 308 (150-375) k/mm3 BMP 08/28/24 05:12 Sodium 140 Potassium 4.6 Chloride 104 Carbon Dioxide 27 BUN 40 H Creatinine 1.68 H Glucose 89 Calcium 8.9 Cardiac Enzymes 08/28/24 Range/Units 05:10 Troponin I 0.029 (0.000-0.034) ng/mL Liver Function 08/28/24 Range/Units 05:12 Total Bilirubin 1.8 H (0.2-1.3) mg/dL AST 73 H (17-59) U/L ALT 58 H (6-50) U/L Alkaline Phosphatase 97 (38-126) U/L Albumin 4.0 (3.5-5.1) g/dL Urine 08/28/24 Range/Units 08:49 Urine Color Yellow (Yellow) Urine Appearance Cloudy H (Clear) Urine pH 5.0 (5.0-9.0) Ur Specific [place] 1.017 (1.001-1.035) Urine Protein 1+ H (Negative) mg/dL Urine Glucose (UA) Negative (Negative) mg/dL Assessment and Plan Assessment and plan (1) Acute on chronic systolic heart failure: Code(s): I50.23 - Acute on chronic systolic (congestive) heart failure Status: Acute Assessment and Plan: Cardiology consulted IV Lasix daily Echocardiogram pending Fluid restriction (2) UTI (urinary tract infection): Code(s): N39.0 - Urinary tract infection, site not specified Status: Acute Assessment and Plan: Rocephin (3) Acute kidney injury: Code(s): N17.9 - Acute kidney failure, unspecified Status: Acute Assessment and Plan: Unknown if history of CKD On will give fluids due to fluid overload Daily BMP Avoid nephrotoxic medications (4) Medical non-compliance: Code(s): Z91.199 - Patient's noncompliance with other medical treatment and regimen due to unspecified reason Status: Acute Assessment and Plan: Patient is homeless (5) Substance abuse: Code(s): F19.10 - Other psychoactive substance abuse, uncomplicated Status: Acute Assessment and Plan: CIWA protocol Banana bag Thiamine (6) Essential hypertension: Code(s): I10 - Essential (primary) hypertension Status: Acute Assessment and Plan: Continue Entresto (7) Transaminitis: Code(s): R74.01 - Elevation of levels of liver transaminase levels Status: Acute Assessment and Plan: CMP in a.m. Quality VTE Prophylaxis VTE prophylaxis: mechanical ordered and pharmacologic ordered Hospitalist MIPS Advance Care Plan I have confirmed that the patient's Advanced Care Plan is present, code status is documented, or surrogate decision maker is listed in patient medical record.: Yes Medication Reconciliation I have utilized all available resources to obtain, update and review the patients current medications (includes all prescriptions, OTC, herbals, cannabis, and nutritional supplements).: Yes
[2024-08-28 13:18] LABS: Alanine Aminotransferase 58 U/L (6-50); Albumin Level 4.1 g/dL (3.5-5.1); Alkaline Phosphatase 89 U/L (38-126); Anion Gap 10 mmol/L (4-12); Aspartate Amino Transferase 73 U/L (17-59); Bilirubin,Total 1.9 mg/dL (0.2-1.3); Blood Urea Nitrogen 39 mg/dL (9-20); Calcium 8.9 mg/dL (8.4-10.2); Carbon Dioxide 27 mmol/L (22-30); Chloride 104 mmol/L (98-107); Estimated CRCL calculation 49 ml/min; Estimated Glomerular Filt Rate 48; Glucose 131 mg/dL (65-110); Potassium 3.7 mmol/L (3.4-5.0); Sodium 141 mmol/L (137-145)
--- NOTE | 2024-08-28 16:51 | PM.CNCAR ---
Assessment and Plan Assessment and plan (1) Nonischemic cardiomyopathy: Code(s): I42.8 - Other cardiomyopathies Status: Acute Assessment and Plan: Much worsened. IV diuresis, Entresto and restart carvedilol as detailed below (2) Acute on chronic systolic heart failure: Code(s): I50.23 - Acute on chronic systolic (congestive) heart failure Status: Acute Assessment and Plan: He has a severely reduced ejection fraction. Continue Entresto 24/26 mg 1 tablet p.o. b.i.d.. Continue IV diuresis at 40 mg IV daily. Will restart carvedilol. Uncertain as to why he is not taking it. He was discharged home with it recently at 6.25 mg p.o. b.i.d.. Will re-initiate at 3.125 mg p.o. b.i.d. and up titrate as able. Gradually addition of things such as spironolactone and Jardiance as BP will allow. Follow renal function and electrolyte (3) Non-sustained ventricular tachycardia: Code(s): I47.29 - Other ventricular tachycardia Status: Acute Assessment and Plan: Restarting beta-richard (4) Essential hypertension: Code(s): I10 - Essential (primary) hypertension Status: Acute Assessment and Plan: At goal (5) Substance abuse: Code(s): F19.10 - Other psychoactive substance abuse, uncomplicated Status: Acute Assessment and Plan: States that he is not using. Drug screen not performed this admission but most recently though was positive for amphetamines last month (6) Medical non-compliance: Code(s): Z91.199 - Patient's noncompliance with other medical treatment and regimen due to unspecified reason Status: Acute Assessment and Plan: In part due to his homeless (7) Severe chronic obstructive pulmonary disease: Code(s): J44.9 - Chronic obstructive pulmonary disease, unspecified Status: Acute History of Present Illness History of Present Illness Consult date/time: 08/28/24 16:51 Requesting physician: Jessica Irby APRN Consult reason: congestive heart failure Reason For Visit: acute on chronic heart exac needing diuresis,uti Narrative: date of service 08/28/2024 Reason for consultation: CHF Requesting provider: Jessica Irby History patient is a 69-year-old male who has a history of nonischemic cardiomyopathy diagnosed in 2023. Catheterization showed no obstructive CAD. He was hospitalized about a month ago for CHF exacerbation, shortness of breath, RSV infection. He was also struggling with compliance of medications given his homelessness. He states that he was taking his Lasix up until the day of admission but had run out. He has been having some worsening lower extremity swelling as well as some shortness of breath with any activity. He came to hospital because of the symptoms and BNP was elevated at over 15,000. Chest X shows a pulmonary edema. He was started on a combination of antibiotics and IV diuretics. He is feeling better his legs are less swollen. Denies any chest pain, syncope, presyncope, palpitations. Does have some intermittent paroxysmal nocturnal dyspnea Review of Systems Review of Systems: All systems reviewed & are unremarkable except as noted in HPI and below Constitutional: Constitutional: Denies body ache(s) Eyes: Eyes: Denies blurry vision ENT: Reports Normal hearing present Cardiovascular: Cardiovascular: Denies chest pain and Reports leg edema Respiratory: Respiratory: Reports dyspnea Gastrointestinal: Gastrointestinal: Denies abdominal pain Genitourinary: Genitourinary: Denies hematuria Musculoskeletal: Musculoskeletal: Denies joint swelling Integumentary/Breasts: Skin/Breast: Denies erythema Neurologic: Denies Abnormal speech present Psychiatric: Psychiatric: Denies behavioral changes Endocrine: Endocrine: Denies excessive sweating Hematologic/Lymphatic: Hematologic/Lymphatic: Denies easy bruising Allergic/Immunologic: Allergic/Immunologic: Denies GI upset with certain foods PMFSH Past Medical History Medical History Severe chronic obstructive pulmonary disease With good response to bronchodilator noted on PFTs 10/2020 Toe fracture, left multiple toes Bronchitis Nose fracture Surgical History Surgical History History of tonsillectomy Family History Family History Mother , in her 80s Diabetes mellitus Lung cancer COPD (chronic obstructive pulmonary disease) Father , at 83 years old Acute myocardial infarction Biventricular ICD (implantable cardioverter-defibrillator) in place COPD (chronic obstructive pulmonary disease) Sibling Lung cancer Social History Social History Social History: Patient was 3 times. His last between 3 and 5 years ago cancer. He then had a girlfriend who also developed cancer and in August of 2022. 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 He briefly smoked when he was younger. He denies any significant alcohol use. He denies any illicit substance use. Code status: DNR/DNI (per patient request) The patient reports he does not have a surrogate decision maker and has no family members left. He does not have any friends he feels close enough to ask to make that type of decision. Years smoked: 5 Smoking status: Never smoker Alcohol intake: never Substance use: current Substance use type: marijuana Last use: 08/21/24 Do You Feel Safe in your Home?: Yes Lack of Transportation: No Lack of Food: Often True Current Housing: I Do Not Have Housing Concerned About Future Housing: Decline to Answer Difficulty Paying Gas/Electric Bills: Decline to Answer Difficulty Paying for Meds: Decline to Answer Currently Unemployed: Decline to Answer Education: Don't Know Difficulty w/ Childcare or Family Care: Decline to Answer Gender identity (if verbalized by the patient): Male Spiritual care concerns: No Meds Home Medications and Allergies Home Medications ?Medication ?Instructions ?Recorded ?Confirmed ?Type aspirin 81 mg tablet 81 mg PO DAILY 03/06/24 08/28/24 History albuterol sulfate 90 mcg/actuation 2 puff inhalation Q4H PRN 05/27/24 08/28/24 Rx aerosol inhaler Shortness Of Breath Or Wheezing #6.7 grams budesonide 160 mcg-glycopyr 9 2 inh inhalation BID #5.9 grams 05/27/24 08/28/24 Rx mcg-formot 4.8 mcg/actuation HFA inhaler (Breztri Aerosphere) sacubitril 24 mg-valsartan 26 mg 1 tab PO Q12HR #60 tabs 07/18/24 08/28/24 Rx tablet (Entresto) furosemide 20 mg tablet 40 mg (2 x 20 mg) PO DAILY #30 tabs 08/01/24 08/28/24 Rx Allergies Allergy/AdvReac Type Severity Reaction Status Date / Time Sulfa (Sulfonamide Allergy Mild Rash Verified 08/28/24 12:39 Antibiotics) Vital Signs Vital Signs - 24 hr 08/28/24 00:36 08/28/24 08:15 08/28/24 09:30 Temperature 36.6 C Pulse Rate 112 H 100 98 Respiratory Rate 20 14 16 Blood Pressure 133/91 H 157/105 H 148/78 H Pulse Oximetry 100 97 97 Oxygen Delivery 08/28/24 10:30 08/28/24 11:00 08/28/24 12:00 Temperature Pulse Rate 94 91 92 Respiratory Rate 16 16 Blood Pressure 131/90 125/90 Pulse Oximetry 97 100 Oxygen Delivery 08/28/24 12:09 08/28/24 12:47 Temperature 36.0 C L Pulse Rate 84 Respiratory Rate 16 Blood Pressure 136/95 H Pulse Oximetry 99 Oxygen Delivery Room Air Exam Narrative: Alert oriented appears stated age Const: General: comfortable and no acute distress HENMT: Face/Nose/Sinus: Normal nares present Mouth: Yes moist mucous membranes Eyes: General: appearance normal, both eyes and all related structures Sclera: sclerae normal Neck: Neck: supple and no JVD Chest: Other: No reproducible chest wall pain to palpation Resp: Effort & Inspection: normal respiratory effort Auscultation: clear to auscultation bilaterally Cardio: Rate: regular rate Rhythm: regular rhythm Heart sounds: no murmurs GI: Inspection: non-distended GI Palp: Yes Soft to palpation : Male General Exam: Yes normal external exam Skin: General skin exam: normal color Neuro: Speech: normal speech Extrem: General: edema Other: 2+ bilateral lower extremity edema Psych: Mental Status: mental status grossly normal Affect: normal affect Results Labs and Meds 08/28/24 05:12 08/28/24 12:58 Lab results: Cardiac Enzymes 08/28/24 08/28/24 08/28/24 Range/Units 05:10 05:12 12:58 AST 73 H 73 H (17-59) U/L Troponin I 0.029 (0.000-0.034) ng/mL CBC 08/28/24 Range/Units 05:12 WBC 8.0 (4.5-10.0) K/mm3 RBC 4.55 L (4.6-6.20) M/mm3 Hgb 14.0 (14.0-18.0) g/dL Hct 45.9 (42.0-52.0) % Plt Count 308 (150-375) k/mm3 Lymph # (Auto) 2.32 (0.9-3.2) K/mm3 [place] # (Auto) 0.5 (0.1-0.6) K/mm3 Eos # (Auto) 0.2 (0-0.3) K/mm3 Baso # (Auto) 0.1 (0.0-0.1) K/mm3 Comprehensive Metabolic Panel 08/28/24 08/28/24 Range/Units 05:12 12:58 Sodium 140 141 (137-145) mmol/L Potassium 4.6 3.7 (3.4-5.0) mmol/L Chloride 104 104 (98-107) mmol/L Carbon Dioxide 27 27 (22-30) mmol/L BUN 40 H 39 H (9-20) mg/dL Creatinine 1.68 H 1.46 H (0.7-1.3) mg/dL Glucose 89 131 H (65-110) mg/dL Calcium 8.9 8.9 (8.4-10.2) mg/dL AST 73 H 73 H (17-59) U/L ALT 58 H 58 H (6-50) U/L Alkaline Phosphatase 97 89 (38-126) U/L Total Protein 8.0 8.0 (6.3-8.2) g/dL Albumin 4.0 4.1 (3.5-5.1) g/dL Intake and Output 08/28/24 08/28/24 08/28/24 07:59 15:59 23:59 Intake Total 150 Balance 150 Intake: IV 50 cefTRIAXone 1 GM/NS 50 ML 1 gm 50 In 50 ml @ 100 mls/hr IVPB ONCE STA Rx#:[id number] Oral 100 Patient Weight 08/28/24 23:59 Weight 95.1 kg EKG personally reviewed and personal interpreted showing sinus tachycardia lateral ST and T-wave abnormality, consider ischemia versus hypertrophy. Abnormal ECG Echocardiogram 1. Four-chamber dilated cardiomyopathy. 2. Severe left ventricular systolic function in a global fashion 3. No pericardial effusion. Left Ventricle Left ventricular chamber dimension is severely enlarged. Left ventricular systolic function is severely reduced, estimated at 15-20%.
--- NOTE | 2024-08-28 17:54 | PC.NURSE ---
Patient refusing tele monitor, education on hospital safety and reason we monitor his heart rate and rythmn, patient still refusing. Notified
[2024-08-28] MEDS: SACUBITRIL/VALSARTAN 24-26 MG TABLET 1 TAB PO (20:52)
[2024-08-28] MEDS: carvediloL 3.125 MG TABLET PO (20:53)
[2024-08-28] MEDS: LORazepam INJ (*CRX) 2 MG/ML VIAL IV PUSH (20:54)
[2024-08-28] MEDS: THIAMINE HCL INJ 100 MG, FOLIC ACID INJ 1 MG, MAGNESIUM SULFATE INJ 1 GM, MULTIVITAMINS... 125 MG IV CONT (22:00)
[2024-08-29] VITALS (10 sets, daily range): BP systolic 121; BP diastolic 90; PULSE 56–103; RESP 16–20; TEMP 36.5; O2SAT 96–97
[2024-08-29 00:46] LABS: Glucose Point of Care 165 mg/dl (65-105)
[2024-08-29] MEDS: LORazepam INJ (*CRX) 2 MG/ML VIAL IV PUSH ×2 (02:26→20:02)
[2024-08-29 06:02] LABS: Basophils Absolute Auto 0.1 K/mm3 (0.0-0.1); Basophils Percent Auto 0.6 % (0.2-1.2); Eosinophils Absolute Auto 0.3 K/mm3 (0-0.3); Eosinophils Percent Auto 3.2 % (0-4.4); Hematocrit 45.7 % (42.0-52.0); Hemoglobin 14.4 g/dL (14.0-18.0); Immature Granulocyte Absolute 0.05 K/mm3 (0.00-0.031); Immature Granulocyte Percent A 0.5 % (0-0.5); Lymphocytes Absolute Auto 2.09 K/mm3 (0.9-3.2); Lymphocytes Percent Auto 19.6 % (18.3-44.2); Mean Corpuscular HGB Conc 31.5 g/dl (32-36); Mean Corpuscular Hemoglobin 31.4 pg (26-34); Mean Corpuscular Volume 99.8 fl (80-100); Mean Platelet Volume 9.6 fl (7.4-10.4); Monocytes Absolute Auto 0.5 K/mm3 (0.1-0.6); Monocytes Percent Auto 4.8 % (2.6-8.5); Neutrophils Absolute Auto 7.6 K/mm3 (1.3-6.7); Neutrophils Percent Auto 71.3 % (45.5-73.1); Platelet Count Result 286 k/mm3 (150-375); Red Blood Count 4.58 M/mm3 (4.6-6.20); Red Cell Distribution Width 14.6 % (11.5-14.5); White Blood Count 10.7 K/mm3 (4.5-10.0)
[2024-08-29 06:04] LABS: Alanine Aminotransferase 44 U/L (6-50); Albumin Level 3.4 g/dL (3.5-5.1); Alkaline Phosphatase 85 U/L (38-126); Anion Gap 9 mmol/L (4-12); Aspartate Amino Transferase 52 U/L (17-59); Bilirubin,Total 1.3 mg/dL (0.2-1.3); Blood Urea Nitrogen 38 mg/dL (9-20); Calcium 8.4 mg/dL (8.4-10.2); Carbon Dioxide 24 mmol/L (22-30); Chloride 106 mmol/L (98-107); Estimated CRCL calculation 52 ml/min; Estimated Glomerular Filt Rate 52; Glucose 99 mg/dL (65-110); Potassium 4.3 mmol/L (3.4-5.0); Sodium 139 mmol/L (137-145)
[2024-08-29 06:08] LABS: INR 1.2; Prothrombin Time 15.5 Seconds (11.1-14.7)
--- NOTE | 2024-08-29 06:51 | PC.NURSE ---
Patient was trying to get out of bed without assistance, fell asleep while leaning on side of bedrails. Verbally aggressive, snatched away when staff made physical contact to touched to prevent him from falling out of bed. Non-complaint with IV therapy, pulled and tugged at tubing. Snatched off air sampling and monitoring, threw it on floor, demanded he will not wear it anymore. Demanded he wants to get up and walk the halls while falling asleep while talking. Staff tried several attempts redirect patient. Charge nurse came to room to assist getting patient back in bed. When able to redirect, bed linen was changed due to urination in bed. Bed in lowest position, Level 2 bed alarm set, Call light within reach. At this time, patient is resting in bed.
[2024-08-29] MEDS: FLUTICASONE/UMECLIDIN/VILANTER 100-62.5-25 MCG ELLIPTA 1 PUFF INHALATION (08:01)
[2024-08-29] MEDS: ASPIRIN 81 MG ENTERIC TABLET PO (09:28)
[2024-08-29] MEDS: THIAMINE HCL 200 MG/2 ML VIAL 100 MG IV PUSH (09:28)
[2024-08-29] MEDS: SACUBITRIL/VALSARTAN 24-26 MG TABLET 1 TAB PO ×2 (09:28→20:01)
[2024-08-29] MEDS: carvediloL 3.125 MG TABLET PO (09:29)
[2024-08-29] MEDS: ENOXAPARIN 40 MG/0.4 ML SYRINGE SUB-Q (09:29)
[2024-08-29] MEDS: FUROSEMIDE INJ 40 MG/4 ML VIAL IV PUSH (09:29)
--- NOTE | 2024-08-29 10:28 | PM.PNCARD ---
Progress Note: A&P Assessment and Plan (1) Nonischemic cardiomyopathy: Code(s): I42.8 - Other cardiomyopathies Status: Acute Assessment and Plan: Much worsened. IV diuresis, Entresto and restart carvedilol as detailed below (2) Acute on chronic systolic heart failure: Code(s): I50.23 - Acute on chronic systolic (congestive) heart failure Status: Acute Assessment and Plan: He has a severely reduced ejection fraction. Continue Entresto 24/26 mg 1 tablet p.o. b.i.d.. Continue IV diuresis at 40 mg IV daily. Will increase carvedilol to 6.25 mg p.o. b.i.d.. Gradually addition of things such as spironolactone and Jardiance as BP will allow. Follow renal function and electrolytes (3) Non-sustained ventricular tachycardia: Code(s): I47.29 - Other ventricular tachycardia Status: Acute Assessment and Plan: On carvedilol (4) Essential hypertension: Code(s): I10 - Essential (primary) hypertension Status: Acute Assessment and Plan: At goal (5) Substance abuse: Code(s): F19.10 - Other psychoactive substance abuse, uncomplicated Status: Acute Assessment and Plan: States that he is not using. Drug screen not performed this admission although most recently was positive for amphetamines last month (6) Medical non-compliance: Code(s): Z91.199 - Patient's noncompliance with other medical treatment and regimen due to unspecified reason Status: Acute Assessment and Plan: In part due to his homelessness (7) Severe chronic obstructive pulmonary disease: Code(s): J44.9 - Chronic obstructive pulmonary disease, unspecified Status: Acute Subjective Date/time seen: 08/29/24 10:28 Interval history: 69-year-old admitted with edema, acute on chronic CHF Date of service 08/29/2024: On all fours in bed to stretch his back out. No chest pain shortness of breath. Still has swelling Review of Systems Review of Systems: All systems reviewed & are unremarkable except as noted in HPI and below Constitutional: Constitutional: Denies body ache(s) and Denies excessive sweating Eyes: Eyes: Denies blurry vision ENT: Reports Normal hearing present Cardiovascular: Cardiovascular: Denies chest pain, Reports leg edema and Reports dyspnea Respiratory: Respiratory: Reports dyspnea Gastrointestinal: Gastrointestinal: Denies abdominal pain Genitourinary: Genitourinary: Denies hematuria Musculoskeletal: Musculoskeletal: Denies joint swelling Integumentary/Breasts: Skin/Breast: Denies erythema Neurologic: Reports Normal hearing present, Denies Abnormal speech present and Denies behavioral changes Psychiatric: Psychiatric: Denies behavioral changes Endocrine: Endocrine: Denies excessive sweating Hematologic/Lymphatic: Hematologic/Lymphatic: Denies easy bruising Allergic/Immunologic: Allergic/Immunologic: Denies GI upset with certain foods Exam Narrative: Alert oriented appears stated age Const: General: comfortable and no acute distress HENMT: Face/Nose/Sinus: Normal nares present Mouth: Yes moist mucous membranes Eyes: General: appearance normal, both eyes and all related structures Sclera: sclerae normal Neck: Neck: supple and no JVD Chest: Other: No reproducible chest wall pain to palpation Resp: Effort & Inspection: normal respiratory effort Auscultation: clear to auscultation bilaterally Cardio: Rate: regular rate Rhythm: regular rhythm Heart sounds: no murmurs GI: Inspection: non-distended : Male General Exam: Yes normal external exam Skin: General skin exam: normal color Neuro: Cranial nerves: Yes Normal hearing present Speech: normal speech and No Abnormal speech present Extrem: General: edema Other: 2+ bilateral lower extremity edema Psych: Mental Status: mental status grossly normal Affect: normal affect Objective Data Vital Signs Vital Signs: Vital Signs - 24 hr 08/28/24 10:30 08/28/24 11:00 08/28/24 12:00 Temperature Pulse Rate 94 91 92 Pulse Rate [Bilateral Pedal (Dorsalis Pedis) Palpation] Respiratory Rate 16 16 Blood Pressure 131/90 125/90 Pulse Oximetry 97 100 Oxygen Delivery Fraction of Inspired Oxygen 08/28/24 12:09 08/28/24 12:47 08/28/24 20:37 Temperature 36.0 C L Pulse Rate 84 Pulse Rate [Bilateral Pedal (Dorsalis Pedis) Palpation] 103 H Respiratory Rate 16 Blood Pressure 136/95 H 124/83 Pulse Oximetry 99 Oxygen Delivery Room Air Fraction of Inspired Oxygen 08/28/24 20:53 08/28/24 20:53 08/28/24 22:00 Temperature 35.9 C L Pulse Rate 106 H 106 H Pulse Rate [Bilateral Pedal (Dorsalis Pedis) Palpation] Respiratory Rate 18 Blood Pressure 124/83 Pulse Oximetry 99 Oxygen Delivery Room Air Fraction of Inspired Oxygen 08/29/24 00:00 08/29/24 00:00 08/29/24 00:17 Temperature Pulse Rate 91 103 H Pulse Rate [Bilateral Pedal (Dorsalis Pedis) Palpation] 96 Respiratory Rate 20 Blood Pressure Pulse Oximetry 97 Oxygen Delivery Room Air Fraction of Inspired Oxygen 21 08/29/24 04:00 08/29/24 04:03 08/29/24 08:01 Temperature Pulse Rate 91 Pulse Rate [Bilateral Pedal (Dorsalis Pedis) Palpation] 89 Respiratory Rate Blood Pressure Pulse Oximetry 96 Oxygen Delivery Room Air Fraction of Inspired Oxygen 21 08/29/24 08:01 08/29/24 09:29 Temperature Pulse Rate 100 100 Pulse Rate [Bilateral Pedal (Dorsalis Pedis) Palpation] Respiratory Rate 20 Blood Pressure Pulse Oximetry Oxygen Delivery Fraction of Inspired Oxygen Intake/Output Intake/Output: Intake & Output 08/26/24 08/27/24 08/28/24 08/29/24 23:59 23:59 23:59 23:59 Intake Total 250 776 Output Total 550 Balance 250 226 Meds/Results Medications: Active Medications Generic Name Dose Route Start Last Admin Trade Name Freq PRN Reason Stop Dose Admin Acetaminophen 650 mg 08/28/24 09:45 Acetaminophen 325 Mg Tablet PO Q4H PRN Mild Pain (1-3) or Fever Albuterol 2 puff 08/28/24 13:31 Albuterol Sulfate (*Sp) Aerosol 1 Puff INHALATION Q4H PRN Shortness Of Breath Or Wheezing Aspirin 81 mg 08/29/24 09:00 08/29/24 09:28 Aspirin 81 Mg Enteric Tablet PO 81 mg QAM SOLEDAD Administration Carvedilol 3.125 mg 08/28/24 21:00 08/29/24 09:29 Carvedilol 3.125 Mg Tablet PO 3.125 mg Q12HR SOLEDAD Administration Enoxaparin Sodium 40 mg 08/29/24 09:00 08/29/24 09:29 Enoxaparin 40 Mg/0.4 Ml Syringe SUB-Q 40 mg DAILY SOLEDAD Administration Fluticasone/Umeclidinium/Vilanterol 1 puff 08/29/24 08:00 08/29/24 08:01 Fluticasone/Umeclidin/Vilanter 100-62.5-25 Mcg Ellipta INHALATION 1 puff DAILYRT SOLEDAD Administration Furosemide 40 mg 08/29/24 09:00 08/29/24 09:29 Furosemide Inj 40 Mg/4 Ml Vial IV PUSH 40 mg DAILY SOLEDAD Administration Ceftriaxone Sodium 1 gm in 50 mls @ 100 mls/hr 08/29/24 09:00 08/29/24 09:29 Rocephin 1 Gm/Ns 50 Ml IVPB 100 mls/hr Q24H SOLEDAD Administration Lorazepam 2 mg 08/28/24 20:37 08/29/24 02:26 Lorazepam Inj (*Crx) 2 Mg/Ml Vial IV PUSH 2 mg Q2H PRN Administration CIWA > 15 Ondansetron HCl 4 mg 08/28/24 09:45 Ondansetron Inj 4 Mg/2 Ml Vial IV PUSH Q4H PRN Nausea Perflutren Lipid Microsphere 0 ml 08/28/24 12:36 Perflutren Lipid Microspheres 1.5 Ml Vial Diluted To 10 Ml Total Volume IV PUSH 08/31/24 12:37 ONCE PRN adequate visualization Protocol Sacubitril/Valsartan 1 tab 08/28/24 21:00 08/29/24 09:28 Sacubitril/Valsartan 24-26 Mg Tablet PO 1 tab Q12HR SOLEDAD Administration Thiamine HCl 100 mg 08/29/24 09:00 08/29/24 09:28 Thiamine Hcl 200 Mg/2 Ml Vial IV PUSH 100 mg DAILY SOLEDAD Administration Radiology Results: ITS Impressions Chest X-Ray 08/28/24 07:14 IMPRESSION: 1. Likely congestive heart failure with cardiomegaly and mild pulmonary edema. Labs Labs: Laboratory Results - last 24 hr 08/28/24 08/29/24 08/29/24 12:58 00:41 05:23 WBC 10.7 H RBC 4.58 L Hgb 14.4 Hct 45.7 MCV 99.8 MCH 31.4 MCHC 31.5 L RDW 14.6 H Plt Count 286 MPV 9.6 Immature Gran % (Auto) 0.5 Neut % (Auto) 71.3 Lymph % (Auto) 19.6 Pierce % (Auto) 4.8 Eos % (Auto) 3.2 Baso % (Auto) 0.6 Lymph # (Auto) 2.09 Pierce # (Auto) 0.5 Eos # (Auto) 0.3 Baso # (Auto) 0.1 Abs Immat Gran (auto) 0.05 H Absolute Neuts (auto) 7.6 H Absolute Nucleated RBC 0.000 Nucleated RBC % 0.0 PT 15.5 H INR 1.2 Sodium 141 139 Potassium 3.7 4.3 Chloride 104 106 Carbon Dioxide 27 24 Anion Gap 10 9 BUN 39 H 38 H Creatinine 1.46 H 1.37 H Estim Creat Clear Calc 49 52 Estimated GFR 48 L 52 L Glucose 131 H 99 POC Capillary Glucose 165 H Calcium 8.9 8.4 Total Bilirubin 1.9 H 1.3 AST 73 H 52 ALT 58 H 44 Alkaline Phosphatase 89 85 Total Protein 8.0 7.0 Albumin 4.1 3.4 L
[2024-08-29 11:39] LABS: Glucose Point of Care 107 mg/dl (65-105)
--- NOTE | 2024-08-29 14:10 | P.PNIM_ITS ---
Progress Note: A&P Assessment and Plan (1) Acute on chronic systolic heart failure: Code(s): I50.23 - Acute on chronic systolic (congestive) heart failure Status: Acute Assessment and Plan: Echo EF 15-20% Cardiology consulted IV Lasix daily Echocardiogram pending Fluid restriction Entresto and carvedilol (2) UTI (urinary tract infection): Code(s): N39.0 - Urinary tract infection, site not specified Status: Acute Assessment and Plan: Rocephin Follow urine culture (3) Acute kidney injury: Code(s): N17.9 - Acute kidney failure, unspecified Status: Acute Assessment and Plan: Unknown if history of CKD Daily BMP Avoid nephrotoxic medications Creatinine improved to stable (4) Medical non-compliance: Code(s): Z91.199 - Patient's noncompliance with other medical treatment and regimen due to unspecified reason Status: Acute Assessment and Plan: Patient is homeless (5) Substance abuse: Code(s): F19.10 - Other psychoactive substance abuse, uncomplicated Status: Acute Assessment and Plan: [facility] protocol Banana bag Thiamine (6) Essential hypertension: Code(s): I10 - Essential (primary) hypertension Status: Acute Assessment and Plan: Continue Entresto (7) Transaminitis: Code(s): R74.01 - Elevation of levels of liver transaminase levels Status: Acute Assessment and Plan: CMP stable to improved Subjective Date/time seen: 08/29/24 14:10 Interval history: HPI: 69-year-old male past medical history of COPD, CKD and CHF not taking his Lasix due to homelessness presents the hospital lower extremity swelling. Patient complains of lower extremity swelling that is causing him pain study presents to the emergency department. Lab work showed a D-dimer of 0.28, BUN of 40, creatinine of 1.68 baseline being around 1.28, total bilirubin of 1.8, AST 73, PTT 58 which [place] [address]. UA shows 1+ leukocyte esterase, 21-50 wbc's, 1+ bacteria negative for nitrates. Chest x-ray shows Likely congestive heart failure with cardiomegaly and mild pulmonary edema. EKG shows sinus tach with rate of [address] deviation and moderate T-wave abnormality. Patient was started on IV Rocephin and given 40 mg IV Lasix x1. 08/29/2024: No overnight events. Patient refusing to continue on telemetry. Patient is irritable and not cooperative with history and physical Review of Systems Review of Systems: All systems reviewed & are unremarkable except as noted in HPI and below Exam Narrative: General: Unkempt, appears stated age. Not in acute distress HEENT: normocephalic, atraumatic. Mucous membranes moist. EOMI, PERRLA, bilateral sclera anicteric, no conjunctival injection. Neck supple without JVD, lymphadenopathy, or bruit. Respiratory: clear to auscultation bilaterally. No rales/rhonic/wheezes. Cardiovascular: Regular rate and rhythm, normal S1-S2 upon ascultation Abdomen: Soft, round, no pulsatile masses, nondistended and nontender. Extremities: No cyanosis, clubbing, or edema present RLA. Cranial nerves 2-12 intact without focal deficit. Lower extremity edema Skin: Warm, dry, and intact, without rash, erythema, or lesion. Psych: pleasant, cooperative, normal speech, normal affect, no hallucinations, no dysarthia Objective Data Vital Signs Vital Signs: Vital Signs - 24 hr 08/28/24 20:37 08/28/24 20:53 08/28/24 20:53 Temperature Pulse Rate 106 H Pulse Rate [Bilateral Pedal (Dorsalis Pedis) Palpation] 103 H Respiratory Rate Blood Pressure 124/83 Pulse Oximetry Oxygen Delivery Room Air Fraction of Inspired Oxygen 08/28/24 22:00 08/29/24 00:00 08/29/24 00:00 Temperature 96.6 F L Pulse Rate 106 H 91 Pulse Rate [Bilateral Pedal (Dorsalis Pedis) Palpation] 96 Respiratory Rate 18 Blood Pressure 124/83 Pulse Oximetry 99 Oxygen Delivery Fraction of Inspired Oxygen 08/29/24 00:17 08/29/24 04:00 08/29/24 04:03 Temperature Pulse Rate 103 H 91 Pulse Rate [Bilateral Pedal (Dorsalis Pedis) Palpation] 89 Respiratory Rate 20 Blood Pressure Pulse Oximetry 97 Oxygen Delivery Room Air Fraction of Inspired Oxygen 08/29/24 08:00 08/29/24 08:01 08/29/24 08:01 Temperature Pulse Rate 100 Pulse Rate [Bilateral Pedal (Dorsalis Pedis) Palpation] Respiratory Rate 20 Blood Pressure Pulse Oximetry 96 Oxygen Delivery Room Air Room Air Fraction of Inspired Oxygen 08/29/24 09:29 Temperature Pulse Rate 100 Pulse Rate [Bilateral Pedal (Dorsalis Pedis) Palpation] Respiratory Rate Blood Pressure Pulse Oximetry Oxygen Delivery Fraction of Inspired Oxygen Intake/Output Intake/Output: Intake & Output 08/26/24 08/27/24 08/28/24 08/29/24 23:59 23:59 23:59 23:59 Intake Total 250 1016 Output Total 2800 Balance 250 -1784 Meds/Results Medications: Active Medications Generic Name Dose Route Start Last Admin Trade Name Freq PRN Reason Stop Dose Admin Acetaminophen 650 mg 08/28/24 09:45 Acetaminophen 325 Mg Tablet PO Q4H PRN Mild Pain (1-3) or Fever Albuterol 2 puff 08/28/24 13:31 Albuterol Sulfate (*Sp) Aerosol 1 Puff INHALATION Q4H PRN Shortness Of Breath Or Wheezing Aspirin 81 mg 08/29/24 09:00 08/29/24 09:28 Aspirin 81 Mg Enteric Tablet PO 81 mg QAM SOLEDAD Administration Carvedilol 6.25 mg 08/29/24 21:00 Carvedilol 6.25 Mg Tablet PO Q12HR SOLEDAD Enoxaparin Sodium 40 mg 08/29/24 09:00 08/29/24 09:29 Enoxaparin 40 Mg/0.4 Ml Syringe SUB-Q 40 mg DAILY SOLEDAD Administration Fluticasone/Umeclidinium/Vilanterol 1 puff 08/29/24 08:00 08/29/24 08:01 Fluticasone/Umeclidin/Vilanter 100-62.5-25 Mcg Ellipta INHALATION 1 puff DAILYRT SOLEDAD Administration Furosemide 40 mg 08/29/24 09:00 08/29/24 09:29 Furosemide Inj 40 Mg/4 Ml Vial IV PUSH 40 mg DAILY SOLEDAD Administration Ceftriaxone Sodium 1 gm in 50 mls @ 100 mls/hr 08/29/24 09:00 08/29/24 09:29 Rocephin 1 Gm/Ns 50 Ml IVPB 100 mls/hr Q24H SOLEDAD Administration Lorazepam 2 mg 08/28/24 20:37 08/29/24 02:26 Lorazepam Inj (*Crx) 2 Mg/Ml Vial IV PUSH 2 mg Q2H PRN Administration CIWA > 15 Ondansetron HCl 4 mg 08/28/24 09:45 Ondansetron Inj 4 Mg/2 Ml Vial IV PUSH Q4H PRN Nausea Perflutren Lipid Microsphere 0 ml 08/28/24 12:36 Perflutren Lipid Microspheres 1.5 Ml Vial Diluted To 10 Ml Total Volume IV PUSH 08/31/24 12:37 ONCE PRN adequate visualization Protocol Sacubitril/Valsartan 1 tab 08/28/24 21:00 08/29/24 09:28 Sacubitril/Valsartan 24-26 Mg Tablet PO 1 tab Q12HR SOLEDAD Administration Thiamine HCl 100 mg 08/29/24 09:00 08/29/24 09:28 Thiamine Hcl 200 Mg/2 Ml Vial IV PUSH 100 mg DAILY SOLEDAD Administration Radiology Results: ITS Impressions Chest X-Ray 08/28/24 07:14 IMPRESSION: 1. Likely congestive heart failure with cardiomegaly and mild pulmonary edema. Labs Labs: Laboratory Results - last 24 hr 08/29/24 08/29/24 08/29/24 00:41 05:23 11:37 WBC 10.7 H RBC 4.58 L Hgb 14.4 Hct 45.7 MCV 99.8 MCH 31.4 MCHC 31.5 L RDW 14.6 H Plt Count 286 MPV 9.6 Immature Gran % (Auto) 0.5 Neut % (Auto) 71.3 Lymph % (Auto) 19.6 Hale % (Auto) 4.8 Eos % (Auto) 3.2 Baso % (Auto) 0.6 Lymph # (Auto) 2.09 Hale # (Auto) 0.5 Eos # (Auto) 0.3 Baso # (Auto) 0.1 Abs Immat Gran (auto) 0.05 H Absolute Neuts (auto) 7.6 H Absolute Nucleated RBC 0.000 Nucleated RBC % 0.0 PT 15.5 H INR 1.2 Sodium 139 Potassium 4.3 Chloride 106 Carbon Dioxide 24 Anion Gap 9 BUN 38 H Creatinine 1.37 H Estim Creat Clear Calc 52 Estimated GFR 52 L Glucose 99 POC Capillary Glucose 165 H 107 H Calcium 8.4 Total Bilirubin 1.3 AST 52 ALT 44 Alkaline Phosphatase 85 Total Protein 7.0 Albumin 3.4 L
[2024-08-29] MEDS: LORazepam INJ (*CRX) 2 MG/ML VIAL 1 MG IV PUSH (16:11)
[2024-08-29 18:45] LABS: Glucose Point of Care 77 mg/dl (65-105)
[2024-08-29] MEDS: chlordiazePOXIDE (*CRX) 25 MG CAPSULE PO ×2 (18:46→20:12)
[2024-08-29] MEDS: carvediloL 6.25 MG TABLET PO (20:01)
[2024-08-30] VITALS (16 sets, daily range): BP systolic 91–149; BP diastolic 64–117; PULSE 48–100; RESP 14–29; TEMP 35.8–36.6; O2SAT 94–100
[2024-08-30] MEDS: LORazepam INJ (*CRX) 2 MG/ML VIAL IV PUSH ×3 (01:45→07:05)
--- NOTE | 2024-08-30 04:08 | P.PNCROSS_ITS ---
Event Note Event Note Event Note: Nurse called regarding ground level fall and agitation due to alcohol withdrawa l. Advised to give Haldol 3mg IM x1. Will order imaging studies to r/o fracture
[2024-08-30] MEDS: HALOPERIDOL LACTATE 5 MG/ML VIAL 3 MG IM (04:20)
[2024-08-30 06:28] LABS: Basophils Absolute Auto 0.1 K/mm3 (0.0-0.1); Basophils Percent Auto 1.1 % (0.2-1.2); Eosinophils Absolute Auto 0.4 K/mm3 (0-0.3); Eosinophils Percent Auto 4.3 % (0-4.4); Hematocrit 47.5 % (42.0-52.0); Hemoglobin 14.2 g/dL (14.0-18.0); Immature Granulocyte Absolute 0.02 K/mm3 (0.00-0.031); Immature Granulocyte Percent A 0.2 % (0-0.5); Lymphocytes Absolute Auto 2.24 K/mm3 (0.9-3.2); Lymphocytes Percent Auto 27.3 % (18.3-44.2); Mean Corpuscular HGB Conc 29.9 g/dl (32-36); Mean Corpuscular Hemoglobin 30.7 pg (26-34); Mean Corpuscular Volume 102.8 fl (80-100); Mean Platelet Volume 9.8 fl (7.4-10.4); Monocytes Absolute Auto 0.5 K/mm3 (0.1-0.6); Monocytes Percent Auto 6.3 % (2.6-8.5); Neutrophils Percent Auto 60.8 % (45.5-73.1); Platelet Count Result 284 k/mm3 (150-375); Red Blood Count 4.62 M/mm3 (4.6-6.20); Red Cell Distribution Width 14.6 % (11.5-14.5); White Blood Count 8.2 K/mm3 (4.5-10.0)
[2024-08-30 06:37] LABS: Alanine Aminotransferase 38 U/L (6-50); Albumin Level 3.2 g/dL (3.5-5.1); Alkaline Phosphatase 79 U/L (38-126); Anion Gap 4 mmol/L (4-12); Aspartate Amino Transferase 44 U/L (17-59); Bilirubin,Total 1.3 mg/dL (0.2-1.3); Blood Urea Nitrogen 33 mg/dL (9-20); Calcium 8.6 mg/dL (8.4-10.2); Carbon Dioxide 32 mmol/L (22-30); Chloride 106 mmol/L (98-107); Estimated CRCL calculation 49 ml/min; Estimated Glomerular Filt Rate 48; Glucose 91 mg/dL (65-110); Potassium 3.9 mmol/L (3.4-5.0); Sodium 142 mmol/L (137-145)
[2024-08-30 07:13] LABS: Anisocytosis 1+; Burr Cells 2+; Platelet Estimate Adequate (Adequate); Schistocytes None Seen
[2024-08-30] MEDS: OLANZapine 10 MG, WATER, STERILE FOR INJECTION 2.1 ML IM (07:21)
--- NOTE | 2024-08-30 08:35 | PM.IMPN ---
Progress Note: A&P Assessment and Plan (1) Acute on chronic systolic heart failure: Code(s): I50.23 - Acute on chronic systolic (congestive) heart failure Status: Acute Assessment and Plan: Echo EF 15-20% Cardiology consulted IV Lasix daily Echocardiogram pending Fluid restriction Entresto and carvedilol will (2) UTI (urinary tract infection): Code(s): N39.0 - Urinary tract infection, site not specified Status: Acute Assessment and Plan: Rocephin Follow urine culture (3) Acute kidney injury: Code(s): N17.9 - Acute kidney failure, unspecified Status: Acute Assessment and Plan: Unknown if history of CKD Daily BMP Avoid nephrotoxic medications Creatinine improved to stable (4) Medical non-compliance: Code(s): Z91.199 - Patient's noncompliance with other medical treatment and regimen due to unspecified reason Status: Acute Assessment and Plan: Patient is homeless (5) Substance abuse: Code(s): F19.10 - Other psychoactive substance abuse, uncomplicated Status: Acute Assessment and Plan: [facility] protocol Banana bag Thiamine (6) Essential hypertension: Code(s): I10 - Essential (primary) hypertension Status: Acute Assessment and Plan: Continue Entresto (7) Transaminitis: Code(s): R74.01 - Elevation of levels of liver transaminase levels Status: Acute Assessment and Plan: CMP stable to improved (8) Alcohol withdrawal: Code(s): F10.939 - Alcohol use, unspecified with withdrawal, unspecified Status: Acute Assessment and Plan: Ongoing issue leading to agitation and confusion. Will not take any oral Librium Receiving Haldol/Zyprexa/Ativan With ongoing agitation and new findings of recent stroke possibly treat this with Precedex drip in ICU Continue on CIWA protocol Discussed with paper twister tender and transferred to ICU. (9) Stroke: Code(s): I63.9 - Cerebral infarction, unspecified Status: Acute Assessment and Plan: CT head this a.m. with findings of possible acute right frontal lobe infarct. No acute fracture intracranial hemorrhage noted Discussed with Neurology. Confusion ongoing since yesterday likely out of window. With borderline renal function does not suggest performing CTA head and neck for thrombectomy as he will be out of window for that as well. Neurology recommended MRI brain if possible along with carotid Doppler. Will continue aspirin along with statin Aspirin will be given rectally at this time. Monitor on telemetry Plan Discussed with neurology as well as paper twister tender Transferred to ICU for ongoing management of his alcohol withdrawal Subjective Date/time seen: 08/30/24 08:30 Interval history: Overnight events noted. Patient has been agitated. Had a fall at 4:[address] head was performed which showed possible acute frontal lobe infarct. Patient has received Haldol and Ativan overnight. Patient moving all extremities however non cooperative with exam. Patient could not hold still for CT cervical spine earlier today. Discussed with paper twister tender and neurologist Review of Systems Review of Systems: ROS unobtainable: Yes unobtainable due to mental status Exam Narrative: General: Well-built gentleman, appears stated age, somnolent but restless HEENT:? Pupils are pinpoint and sluggish, sclera is clear Neck:? Supple Respiratory:? Coarse breath sounds bilaterally, decreased air entry on the right side, no wheezing Cardiac:? S1-S2 normal regular rate and rhythm Abdomen:? Soft, nontender, nondistended, decreased bowel sounds Extremities:? Lower extremity edema bilaterally, palpable pedal pulses Neuro:? Patient is somnolent, does not follow commands, grimaces and withdraws to deep pain stimulus Skin:? Warm and dry Psych:? Unable to assess Objective Data Vital Signs Vital Signs: Vital Signs - 24 hr 08/29/24 20:00 08/29/24 20:01 08/29/24 20:39 Temperature Pulse Rate 80 Pulse Rate [Bilateral Pedal (Dorsalis Pedis) Palpation] 88 Respiratory Rate Blood Pressure Pulse Oximetry 96 Oxygen Delivery Room Air Fraction of Inspired Oxygen 21 08/30/24 09:32 08/30/24 09:32 08/30/24 10:10 Temperature 97.5 F L Pulse Rate 94 100 Pulse Rate [Bilateral Pedal (Dorsalis Pedis) Palpation] Respiratory Rate 20 19 Blood Pressure 149/105 H Pulse Oximetry 95 98 Oxygen Delivery Room Air Fraction of Inspired Oxygen 08/30/24 10:10 08/30/24 10:10 08/30/24 11:22 Temperature Pulse Rate 100 65 Pulse Rate [Bilateral Pedal (Dorsalis Pedis) Palpation] Respiratory Rate 28 H Blood Pressure Pulse Oximetry Oxygen Delivery Room Air Fraction of Inspired Oxygen 08/30/24 11:49 08/30/24 12:00 08/30/24 12:00 Temperature Pulse Rate 89 61 Pulse Rate [Bilateral Pedal (Dorsalis Pedis) Palpation] 81 Respiratory Rate 22 H Blood Pressure 141/117 H Pulse Oximetry 97 Oxygen Delivery Room Air Fraction of Inspired Oxygen 08/30/24 12:00 08/30/24 12:00 08/30/24 12:15 Temperature Pulse Rate 61 81 64 Pulse Rate [Bilateral Pedal (Dorsalis Pedis) Palpation] Respiratory Rate 22 H 29 H Blood Pressure 141/117 H Pulse Oximetry 97 Oxygen Delivery Fraction of Inspired Oxygen 08/30/24 14:00 08/30/24 14:00 08/30/24 14:00 Temperature Pulse Rate 65 65 65 Pulse Rate [Bilateral Pedal (Dorsalis Pedis) Palpation] Respiratory Rate 14 14 Blood Pressure 126/83 Pulse Oximetry 100 Oxygen Delivery Fraction of Inspired Oxygen Intake/Output Intake/Output: Intake & Output 08/27/24 08/28/24 08/29/24 08/30/24 23:59 23:59 23:59 23:59 Intake Total 250 1546 358.4 Output Total 3420 Balance 250 -1874 358.4 Meds/Results Medications: Active Medications Generic Name Dose Route Start Last Admin Trade Name Freq PRN Reason Stop Dose Admin Acetaminophen 650 mg 08/28/24 09:45 Acetaminophen 325 Mg Tablet PO Q4H PRN Mild Pain (1-3) or Fever Albuterol 2 puff 08/28/24 13:31 Albuterol Sulfate (*Sp) Aerosol 1 Puff INHALATION Q4H PRN Shortness Of Breath Or Wheezing Aspirin 81 mg 08/29/24 09:00 08/30/24 11:49 Aspirin 81 Mg Enteric Tablet PO Not Given QAM [facility] Atorvastatin Calcium 80 mg 08/30/24 21:00 Atorvastatin 40 Mg Tablet PO HS [facility] Carvedilol 6.25 mg 08/29/24 21:00 08/30/24 11:49 Carvedilol 6.25 Mg Tablet PO Not Given Q12HR [facility] Chlordiazepoxide HCl 50 mg 08/30/24 00:00 08/30/24 12:16 Chlordiazepoxide (*Crx) 25 Mg Capsule PO Not Given Q6HR [facility] Enoxaparin Sodium 40 mg 08/29/24 09:00 08/30/24 12:14 Enoxaparin 40 Mg/0.4 Ml Syringe SUB-Q 40 mg DAILY [facility] Administration Fluticasone/Umeclidinium/Vilanterol 1 puff 08/29/24 08:00 08/30/24 09:30 Fluticasone/Umeclidin/Vilanter 100-62.5-25 Mcg Ellipta INHALATION 1 puff DAILYRT [facility] Administration Folic Acid 1 mg 08/31/24 09:00 Folic Acid 1 Mg/0.2 Ml Inj IV PUSH QAM [facility] Furosemide 40 mg 08/29/24 09:00 08/30/24 11:11 Furosemide Inj 40 Mg/4 Ml Vial IV PUSH 40 mg DAILY [facility] Administration Ceftriaxone Sodium 1 gm in 50 mls @ 100 mls/hr 08/29/24 09:00 08/30/24 11:30 Rocephin 1 Gm/Ns 50 Ml IVPB Infused Q24H [facility] Infusion Dexmedetomidine HCl 400 mcg in 100 mls @ 4.795 mls/hr 08/30/24 11:25 08/30/24 14:00 Precedex 400 Mcg/100 Ml IV CONT 0.2 mcg/kg/hr .[id number] [facility] 4.8 mls/hr Titration Protocol 0.2 MCG/KG/HR Lorazepam 2 mg 08/29/24 18:20 08/30/24 07:05 Lorazepam Inj (*Crx) 2 Mg/Ml Vial IV PUSH 2 mg Q2H PRN Administration CIWA > 15 Pantoprazole Sodium 40 mg 08/31/24 09:00 Pantoprazole Sodium Iv 40 Mg Vial IV PUSH QAM [facility] Perflutren Lipid Microsphere 0 ml 08/28/24 12:36 Perflutren Lipid Microspheres 1.5 Ml Vial Diluted To 10 Ml Total Volume IV PUSH 08/31/24 12:37 ONCE PRN adequate visualization Protocol Sacubitril/Valsartan 1 tab 08/28/24 21:00 08/30/24 11:49 Sacubitril/Valsartan 24-26 Mg Tablet PO Not Given Q12HR [facility] Spironolactone 12.5 mg 08/31/24 09:00 Spironolactone 12.5 Mg Tablet PO QAM [facility] Thiamine HCl 100 mg 08/29/24 09:00 08/30/24 12:14 Thiamine Hcl 200 Mg/2 Ml Vial IV PUSH 100 mg DAILY [facility] Administration Radiology Results: ITS Impressions Head CT 08/30/24 08:10 IMPRESSION: 1. Small right frontal lobe infarct, potentially acute. Findings were discussed with Jessica Bowers, the nurse caring for the patient, at 8:13 AM. 2. No fracture or acute intracranial hemorrhage. Chest X-Ray 08/30/24 08:50 IMPRESSION: Interval development of a right upper lobe consolidation, and possible postobstructive collapse, an interval change from previous examinations. Mild pulmonary vascular congestion and cardiomegaly are unchanged. Thoracic/Lumbar Spine CT 08/30/24 13:53 Impression: Degenerative disease, without acute compression fracture within either the thoracic or lumbar spine, as detailed above. Carotid Doppler Study 08/30/24 14:29 IMPRESSION: 1. Less than 50% stenosis in the right internal carotid artery. 2. Less than 50% stenosis in the left internal carotid artery. The right vertebral artery was not visualized, as detailed above. Labs Labs: Laboratory Results - last 24 hr 08/29/24 08/30/24 18:36 05:52 WBC 8.2 RBC 4.62 Hgb 14.2 Hct 47.5 MCV 102.8 H MCH 30.7 MCHC 29.9 L RDW 14.6 H Plt Count 284 MPV 9.8 Immature Gran % (Auto) 0.2 Neut % (Auto) 60.8 Lymph % (Auto) 27.3 [place] % (Auto) 6.3 Eos % (Auto) 4.3 Baso % (Auto) 1.1 Lymph # (Auto) 2.24 [place] # (Auto) 0.5 Eos # (Auto) 0.4 H Baso # (Auto) 0.1 Abs Immat Gran (auto) 0.02 Absolute Neuts (auto) 5.0 Absolute Nucleated RBC 0.000 Band Neutrophils % Not Reportable Nucleated RBC % 0.0 Platelet Estimate Adequate Anisocytosis 1+ Newberry Cells 2+ Schistocytes None seen Sodium 142 Potassium 3.9 Chloride 106 Carbon Dioxide 32 H Anion Gap 4 BUN 33 H Creatinine 1.46 H Estim Creat Clear Calc 49 Estimated GFR 48 L Glucose 91 POC Capillary Glucose 77 Calcium 8.6 Magnesium 2.0 Total Bilirubin 1.3 AST 44 ALT 38 Alkaline Phosphatase 79 Total Protein 7.0 Albumin 3.2 L
[2024-08-30] MEDS: FLUTICASONE/UMECLIDIN/VILANTER 100-62.5-25 MCG ELLIPTA 1 PUFF INHALATION (09:30)
--- NOTE | 2024-08-30 10:29 | WPDCNINT ---
Assessment and Plan Assessment and plan (1) Alcohol withdrawal: Code(s): F10.939 - Alcohol use, unspecified with withdrawal, unspecified Status: Acute Assessment and Plan: Patient presented with agitation, requiring multiple doses of Ativan on the tele floor along with the Haldol and Zyprexa -patient is currently somnolent, does not wake up, open his eyes or follows commands. -will order low-dose Precedex to be started when patient wakes up -continue thiamine IV, will add folic acid IV -continue CIOH protocol -p.r.n. Ativan (2) Nonischemic cardiomyopathy: Code(s): I42.8 - Other cardiomyopathies Status: Acute Assessment and Plan: Nonischemic Cardiomyopathy with CHF exacerbation and lower extremity edema -cardiology following the patient -continue Coreg, diuresis, Entresto 07/18/2023: Cardiac catheterization outside facility at [facility] Showed nonischemic cardiomyopathy, EF 30%, normal renal artery go mild CAD, elevated LVEDP at rest to 22 mmHg, moderate pulmonary hypertension 07/16/2024 echocardiogram Summary 1. Four-chamber dilated cardiomyopathy. 2. Severe left ventricular systolic function in a global fashion, EF 15-20% 3. No pericardial effusion. (3) CHF exacerbation: Qualifiers: Heart failure type: unspecified Qualified Code(s): I50.9 - Heart failure, unspecified Code(s): I50.9 - Heart failure, unspecified Status: Acute Assessment and Plan: As above (4) UTI (urinary tract infection): Code(s): N39.0 - Urinary tract infection, site not specified Status: Acute Assessment and Plan: UTI on admission, continue ceftriaxone -urine culture growing E coli, sensitive tree spent (5) Stroke: Code(s): I63.9 - Cerebral infarction, unspecified Status: Acute Assessment and Plan: Patient had fall early this morning on 08/30/2024 -08/30: CT brain CT scan brain showed small right frontal lobe infarct, potentially acute, no acute fracture or intracranial hemorrhage -last well is unknown -hospitalist did talk to Neurology, who has been consulted, since patient is out of the window before the CT scan showed right frontal lobe infarct potentially acute. Not a candidate for TNK. Recommended MRI which may not be possible since patient is on Precedex infusion for agitation and alcohol withdrawal Plan DVT prophylaxis: Lovenox Stress ulcer prophylaxis: Proton Nutrition: NPO except sips with meds, AFib awake Code Status: Full code Critical Care Time Spent: 49 minutes Due to a high probability of clinically significant, life threatening deterioration, the patient required my highest level of preparedness to intervene emergently and I personally spent this critical care time directly and personally managing the patient. This critical care time included obtaining a history; examining the patient; pulse oximetry; ordering and review of studies; arranging urgent treatment with development of a management plan; evaluation of patient's response to treatment; frequent reassessment; and discussions with other providers. It was exclusive of separately billable procedures and treating other patients and teaching time. Please see Assessment and Plan section and the rest of the note for further information on patient assessment and treatment This dictation may have been done utilizing a voice recognition system. Attempts have been made to correct errors. However, there may be uncorrected grammatical, spelling, and recognitions errors present. 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 Cardiac catheterization showed no obstructive disease. Patient was recently admitted in July 2024 the a was treated for CHF exacerbation, shortness of breath and RSV infection. According the records he ran out of his Lasix and was not taking it a day prior to this admission, and presented presented the ED on 08/28/2024 with complains of lower extremity pain and swelling along with some shortness of breath with any activity. In the ED patient was found to have a BNP > 04023, chest x-ray showed pulmonary edema, creatinine 1.68 and BUN 40. Total bilirubin of 1.8, AST 73, PTT 58. UA showed 1+ leukocyte Estrace, 21-50 wbc's and 1+ bacteria. Patient was admitted to the telemetry unit, has been irritable, non cooperative, refusing to continue on telemetry. Patient also has been agitated and possibly going into alcohol withdrawal symptoms and had a ground level fall. 08/30 CT scan brain showed small right frontal lobe infarct, potentially acute, no acute fracture or intracranial hemorrhage. Patient was given Haldol, Zyprexa, Ativan and transferred to the ICU for possible Precedex infusion Patient seen and examined upon arrival to the ICU, is somnolent, does not open his eyes or follow simple commands. Withdraws to deep pain since. Discussed with hospitalist over Internet spoken to the neurologist, last well-known time was unknown before the stroke as seen on CT scan so not a candidate for TNK. Recommended MRI of the brain. Patient was not given Lasix this morning as yet Review of Systems Review of Systems: ROS unobtainable: Yes unobtainable due to endotracheal tube, unobtainable due to medical condition and unobtainable due to mental status PMFSH Past Medical History Medical History Severe chronic obstructive pulmonary disease With good response to bronchodilator noted on PFTs 10/2020 Toe fracture, left multiple toes Bronchitis Nose fracture Surgical History Surgical History History of tonsillectomy Family History Family History Mother , in her 80s Diabetes mellitus Lung cancer COPD (chronic obstructive pulmonary disease) Father , at 83 years old Acute myocardial infarction Biventricular ICD (implantable cardioverter-defibrillator) in place COPD (chronic obstructive pulmonary disease) Sibling Lung cancer Social History Social History Social History: Patient was 3 times. His last between 3 and 5 years ago cancer. He then had a girlfriend who also developed cancer and in August of 2022. 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 He briefly smoked when he was younger. He denies any significant alcohol use. He denies any illicit substance use. Code status: DNR/DNI (per patient request) The patient reports he does not have a surrogate decision maker and has no family members left. He does not have any friends he feels close enough to ask to make that type of decision. Years smoked: 5 Smoking status: Never smoker Alcohol intake: never Substance use: current Substance use type: marijuana Last use: 08/21/24 Do You Feel Safe in your Home?: Yes Lack of Transportation: No Lack of Food: Often True Current Housing: I Do Not Have Housing Concerned About Future Housing: Decline to Answer Difficulty Paying Gas/Electric Bills: Decline to Answer Difficulty Paying for Meds: Decline to Answer Currently Unemployed: Decline to Answer Education: Don't Know Difficulty w/ Childcare or Family Care: Decline to Answer Gender identity (if verbalized by the patient): Male Spiritual care concerns: No Meds Home Medications and Allergies Home Medications ?Medication ?Instructions ?Recorded ?Confirmed ?Type aspirin 81 mg tablet 81 mg PO DAILY 03/06/24 08/28/24 History albuterol sulfate 90 mcg/actuation 2 puff inhalation Q4H PRN 05/27/24 08/28/24 Rx aerosol inhaler Shortness Of Breath Or Wheezing #6.7 grams budesonide 160 mcg-glycopyr 9 2 inh inhalation BID #5.9 grams 05/27/24 08/28/24 Rx mcg-formot 4.8 mcg/actuation HFA inhaler (Breztri Aerosphere) sacubitril 24 mg-valsartan 26 mg 1 tab PO Q12HR #60 tabs 07/18/24 08/28/24 Rx tablet (Entresto) furosemide 20 mg tablet 40 mg (2 x 20 mg) PO DAILY #30 tabs 08/01/24 08/28/24 Rx Allergies Allergy/AdvReac Type Severity Reaction Status Date / Time Sulfa (Sulfonamide Allergy Mild Rash Verified 08/28/24 12:39 Antibiotics) Vital Signs Vital Signs - 24 hr 08/29/24 14:00 08/29/24 20:00 08/29/24 20:01 Temperature 97.7 F Pulse Rate 56 L 80 Pulse Rate [Bilateral Pedal (Dorsalis Pedis) Palpation] 88 Respiratory Rate 16 Blood Pressure 121/90 Pulse Oximetry 97 Oxygen Delivery Fraction of Inspired Oxygen 08/29/24 20:39 08/30/24 09:32 08/30/24 09:32 Temperature Pulse Rate 94 Pulse Rate [Bilateral Pedal (Dorsalis Pedis) Palpation] Respiratory Rate 20 Blood Pressure Pulse Oximetry 96 95 Oxygen Delivery Room Air Room Air Fraction of Inspired Oxygen 21 Exam Narrative: General: Well-built gentleman, appears stated age, in no acute distress HEENT:? Pupils are pinpoint and sluggish, sclera is clear Neck:? Supple Respiratory:? Coarse breath sounds bilaterally, decreased air entry on the right side, no wheezing Cardiac:? S1-S2 normal regular rate and rhythm Abdomen:? Soft, nontender, nondistended, decreased bowel sounds Extremities:? Lower extremity edema bilaterally, palpable pedal pulses Neuro:? Patient is somnolent, does not open his eyes, follows simple commands, grimaces and withdraws to deep pain stimulus Skin:? Warm and dry Psych:? Unable to assess Results Labs 08/30/24 05:52 08/30/24 05:52 Labs: Short CBC 08/30/24 Range/Units 05:52 WBC 8.2 (4.5-10.0) K/mm3 Hgb 14.2 (14.0-18.0) g/dL Hct 47.5 (42.0-52.0) % Plt Count 284 (150-375) k/mm3 BMP 08/30/24 05:52 Sodium 142 Potassium 3.9 Chloride 106 Carbon Dioxide 32 H BUN 33 H Creatinine 1.46 H Glucose 91 Calcium 8.6 Liver Function 08/30/24 Range/Units 05:52 Total Bilirubin 1.3 (0.2-1.3) mg/dL AST 44 (17-59) U/L ALT 38 (6-50) U/L Alkaline Phosphatase 79 (38-126) U/L Albumin 3.2 L (3.5-5.1) g/dL Quality VTE Prophylaxis VTE prophylaxis: pharmacologic ordered Hospitalist MIPS Advance Care Plan I have confirmed that the patient's Advanced Care Plan is present, code status is documented, or surrogate decision maker is listed in patient medical record.: Yes Medication Reconciliation I have utilized all available resources to obtain, update and review the patients current medications (includes all prescriptions, OTC, herbals, cannabis, and nutritional supplements).: Yes
--- NOTE | 2024-08-30 10:41 | P.PNCA_ITS ---
Progress Note: A&P Assessment and Plan (1) Nonischemic cardiomyopathy: Code(s): I42.8 - Other cardiomyopathies Status: Acute Assessment and Plan: EF 15-20% IV diuresis, Entresto and restart carvedilol as detailed below (2) Acute on chronic systolic heart failure: Code(s): I50.23 - Acute on chronic systolic (congestive) heart failure Status: Acute Assessment and Plan: He has a severely reduced ejection fraction. Continue Entresto 24/26 mg 1 tablet p.o. b.i.d.. Continue IV diuresis at 40 mg IV daily. Will increase carvedilol to 6.25 mg p.o. b.i.d.. Gradually addition of things such as spironolactone and Jardiance as BP will allow - will introduce spironolactone today. Follow renal function and electrolytes (3) Non-sustained ventricular tachycardia: Code(s): I47.29 - Other ventricular tachycardia Status: Acute Assessment and Plan: On carvedilol (4) Essential hypertension: Code(s): I10 - Essential (primary) hypertension Status: Acute Assessment and Plan: At goal (5) Substance abuse: Code(s): F19.10 - Other psychoactive substance abuse, uncomplicated Status: Acute Assessment and Plan: States that he is not using. Drug screen not performed this admission although most recently was positive for amphetamines last month (6) Medical non-compliance: Code(s): Z91.199 - Patient's noncompliance with other medical treatment and regimen due to unspecified reason Status: Acute Assessment and Plan: In part due to his homelessness (7) Severe chronic obstructive pulmonary disease: Code(s): J44.9 - Chronic obstructive pulmonary disease, unspecified Status: Acute Subjective Date/time seen: 08/30/24 10:41 Interval history: 69-year-old admitted with edema, acute on chronic CHF Date of service 08/29/2024: On all fours in bed to stretch his back out. No chest pain shortness of breath. Still has swelling Date of service 08/30/2024: He is somnolent after receiving haldol because of agitation secondary to alcohol withdrawal. Being moved to the ICU. Review of Systems Review of Systems: ROS unobtainable: Yes unobtainable due to medical condition and unobtainable due to mental status Constitutional: Constitutional: Denies body ache(s) and Denies excessive sweating Eyes: Eyes: Denies blurry vision ENT: Reports Normal hearing present Cardiovascular: Cardiovascular: Denies chest pain, Reports leg edema and Reports dyspnea Respiratory: Respiratory: Reports dyspnea Gastrointestinal: Gastrointestinal: Denies abdominal pain Genitourinary: Genitourinary: Denies hematuria Musculoskeletal: Musculoskeletal: Denies joint swelling Integumentary/Breasts: Skin/Breast: Denies erythema Neurologic: Reports Normal hearing present, Denies Abnormal speech present and Denies behavioral changes Psychiatric: Psychiatric: Denies behavioral changes Endocrine: Endocrine: Denies excessive sweating Hematologic/Lymphatic: Hematologic/Lymphatic: Denies easy bruising Allergic/Immunologic: Allergic/Immunologic: Denies GI upset with certain foods Exam Const: General: comfortable, no acute distress and patient obtunded HENMT: Face/Nose/Sinus: Normal nares present Mouth: Yes moist mucous membranes Eyes: General: appearance normal, both eyes and all related structures Sclera: sclerae normal Neck: Neck: supple and no JVD Resp: Effort & Inspection: normal respiratory effort Auscultation: clear to auscultation bilaterally Cardio: Rate: regular rate Rhythm: regular rhythm Heart sounds: no murmurs GI: Inspection: non-distended : Male General Exam: Yes normal external exam Skin: General skin exam: normal color Neuro: General: No oriented to person, No oriented to place and No oriented to time Cranial nerves: Yes Normal hearing present Speech: Abnormal speech present Extrem: General: no edema and no pedal edema Psych: Mental Status: mental status grossly normal Affect: normal affect Objective Data Vital Signs Vital Signs: Vital Signs - 24 hr 08/29/24 14:00 08/29/24 20:00 08/29/24 20:01 Temperature 36.5 C Pulse Rate 56 L 80 Pulse Rate [Bilateral Pedal (Dorsalis Pedis) Palpation] 88 Respiratory Rate 16 Blood Pressure 121/90 Pulse Oximetry 97 Oxygen Delivery Fraction of Inspired Oxygen 08/29/24 20:39 08/30/24 09:32 08/30/24 09:32 Temperature Pulse Rate 94 Pulse Rate [Bilateral Pedal (Dorsalis Pedis) Palpation] Respiratory Rate 20 Blood Pressure Pulse Oximetry 96 95 Oxygen Delivery Room Air Room Air Fraction of Inspired Oxygen 21 Intake/Output Intake/Output: Intake & Output 08/27/24 08/28/24 08/29/24 08/30/24 23:59 23:59 23:59 23:59 Intake Total 250 1496 300 Output Total 3420 Balance 250 -1924 300 Meds/Results Medications: Active Medications Generic Name Dose Route Start Last Admin Trade Name Freq PRN Reason Stop Dose Admin Acetaminophen 650 mg 08/28/24 09:45 Acetaminophen 325 Mg Tablet PO Q4H PRN Mild Pain (1-3) or Fever Albuterol 2 puff 08/28/24 13:31 Albuterol Sulfate (*Sp) Aerosol 1 Puff INHALATION Q4H PRN Shortness Of Breath Or Wheezing Aspirin 81 mg 08/29/24 09:00 08/29/24 09:28 Aspirin 81 Mg Enteric Tablet PO 81 mg QAM SOLEDAD Administration Atorvastatin Calcium 80 mg 08/30/24 21:00 Atorvastatin 40 Mg Tablet PO HS SOLEDAD Carvedilol 6.25 mg 08/29/24 21:00 08/29/24 20:01 Carvedilol 6.25 Mg Tablet PO 6.25 mg Q12HR SOLEDAD Administration Chlordiazepoxide HCl 50 mg 08/30/24 00:00 08/30/24 07:08 Chlordiazepoxide (*Crx) 25 Mg Capsule PO Not Given Q6HR SOLEDAD Enoxaparin Sodium 40 mg 08/29/24 09:00 08/29/24 09:29 Enoxaparin 40 Mg/0.4 Ml Syringe SUB-Q 40 mg DAILY SOLEDAD Administration Fluticasone/Umeclidinium/Vilanterol 1 puff 08/29/24 08:00 08/30/24 09:30 Fluticasone/Umeclidin/Vilanter 100-62.5-25 Mcg Ellipta INHALATION 1 puff DAILYRT SOLEDAD Administration Furosemide 40 mg 08/29/24 09:00 08/29/24 09:29 Furosemide Inj 40 Mg/4 Ml Vial IV PUSH 40 mg DAILY SOLEDAD Administration Haloperidol Lactate 2 mg 08/29/24 20:01 Haloperidol Lactate 5 Mg/Ml Vial IM Q2H PRN Delirium Ceftriaxone Sodium 1 gm in 50 mls @ 100 mls/hr 08/29/24 09:00 08/29/24 09:29 Rocephin 1 Gm/Ns 50 Ml IVPB 100 mls/hr Q24H SOLEDAD Administration Lorazepam 2 mg 08/29/24 18:20 08/30/24 07:05 Lorazepam Inj (*Crx) 2 Mg/Ml Vial IV PUSH 2 mg Q2H PRN Administration CIWA > 15 Perflutren Lipid Microsphere 0 ml 08/28/24 12:36 Perflutren Lipid Microspheres 1.5 Ml Vial Diluted To 10 Ml Total Volume IV PUSH 08/31/24 12:37 ONCE PRN adequate visualization Protocol Sacubitril/Valsartan 1 tab 08/28/24 21:00 08/29/24 20:01 Sacubitril/Valsartan 24-26 Mg Tablet PO 1 tab Q12HR SOLEDAD Administration Thiamine HCl 100 mg 08/29/24 09:00 08/29/24 09:28 Thiamine Hcl 200 Mg/2 Ml Vial IV PUSH 100 mg DAILY SOLEDAD Administration Radiology Results: ITS Impressions Head CT 08/30/24 08:10 IMPRESSION: 1. Small right frontal lobe infarct, potentially acute. Findings were discussed with Jessica Bowesr, the nurse caring for the patient, at 8:13 AM. 2. No fracture or acute intracranial hemorrhage. Chest X-Ray 08/30/24 08:50 IMPRESSION: Interval development of a right upper lobe consolidation, and possible postobstructive collapse, an interval change from previous examinations. Mild pulmonary vascular congestion and cardiomegaly are unchanged. Labs Labs: Laboratory Results - last 24 hr 08/29/24 08/29/24 08/30/24 11:37 18:36 05:52 WBC 8.2 RBC 4.62 Hgb 14.2 Hct 47.5 MCV 102.8 H MCH 30.7 MCHC 29.9 L RDW 14.6 H Plt Count 284 MPV 9.8 Immature Gran % (Auto) 0.2 Neut % (Auto) 60.8 Lymph % (Auto) 27.3 Morgan % (Auto) 6.3 Eos % (Auto) 4.3 Baso % (Auto) 1.1 Lymph # (Auto) 2.24 Morgan # (Auto) 0.5 Eos # (Auto) 0.4 H Baso # (Auto) 0.1 Abs Immat Gran (auto) 0.02 Absolute Neuts (auto) 5.0 Absolute Nucleated RBC 0.000 Band Neutrophils % Not Reportable Nucleated RBC % 0.0 Platelet Estimate Adequate Anisocytosis 1+ [place] Cells 2+ Schistocytes None seen Sodium 142 Potassium 3.9 Chloride 106 Carbon Dioxide 32 H Anion Gap 4 BUN 33 H Creatinine 1.46 H Estim Creat Clear Calc 49 Estimated GFR 48 L Glucose 91 POC Capillary Glucose 107 H 77 Calcium 8.6 Magnesium 2.0 Total Bilirubin 1.3 AST 44 ALT 38 Alkaline Phosphatase 79 Total Protein 7.0 Albumin 3.2 L Quality VTE Prophylaxis VTE prophylaxis: mechanical ordered and pharmacologic ordered
[2024-08-30] MEDS: FUROSEMIDE INJ 40 MG/4 ML VIAL IV PUSH (11:11)
[2024-08-30] MEDS: dexmedeTOMIDine 400 MCG/100 ML 400 MCG/100 ML BAG (11:22)
--- NOTE | 2024-08-30 11:29 | PC.NURSE ---
Patient arrived from room 333 per bed. Transfered to bed ICU 2. Report received from PRINCE Loepz. All questions answered. Assessment as charted.
[2024-08-30] MEDS: ENOXAPARIN 40 MG/0.4 ML SYRINGE SUB-Q (12:14)
[2024-08-30] MEDS: THIAMINE HCL 200 MG/2 ML VIAL 100 MG IV PUSH (12:14)
[2024-08-30] MEDS: dexmedeTOMIDine 400 MCG/100 ML 400 MCG/100 ML BAG IV CONT (12:15)
[2024-08-30] MEDS: PANTOPRAZOLE SODIUM IV 40 MG VIAL IV PUSH (12:15)
[2024-08-30] MEDS: FOLIC ACID 1 MG/0.2 ML INJ IV PUSH (12:15)
--- NOTE | 2024-08-30 12:37 | ECHO_ITS ---
Patient Info Name: Jeevan Castellanos Age: 69 years : 1955 Gender: Male HR: 80 bpm BP: 121 / 90 mmHg Technical Quality: Good Exam Date: 08/30/2024 2:46 PM Patient Status: I Admit Date: 08/28/2024 Exam Type: CA echo limited w bubble study Limited two-dimensional transthoracic echocardiogram is performed with agitated saline. Staff Referring Physician: Adalberto Dickson Professional Wrestler: Ericka Lewis Attending Provider: Britni Hare Contrast/Agitated Saline Contrast/Ag. Saline: Agitated Saline Amount: 12.00 ml Existing IV Access: Yes IV Access Condition: patent with no signs of infiltration Summary 1. There is severe left ventricular dysfunction. The left ventricular ejection fraction is visually estimated to be 20%. 2. Agitated saline study is negative for [id number] shunt. Left Ventricle There is severe left ventricular dysfunction. The left ventricular ejection fraction is visually estimated to be 20%. Atrial Septum Agitated saline study is negative for [id number] shunt. Report Signatures
--- NOTE | 2024-08-30 17:10 | P.CONNEU_ITS ---
Assessment and Plan Assessment and plan (1) Cerebral infarction: Code(s): I63.9 - Cerebral infarction, unspecified Status: Acute (2) Alcohol withdrawal: Code(s): F10.939 - Alcohol use, unspecified with withdrawal, unspecified Status: Acute (3) Acute exacerbation of CHF (congestive heart failure): Code(s): I50.9 - Heart failure, unspecified Status: Acute (4) Nonischemic cardiomyopathy: Code(s): I42.8 - Other cardiomyopathies Status: Acute (5) Acute kidney injury: Code(s): N17.9 - Acute kidney failure, unspecified Status: Acute (6) Severe chronic obstructive pulmonary disease: Code(s): J44.9 - Chronic obstructive pulmonary disease, unspecified Status: Acute Plan The patient unable to cooperate for a neurological examination. Soon before that according to the hospital he was moving both upper and lower limbs. The finding of a CT scan scan of the brain showing right frontal infarct was reviewed. An MRI would be desirable when possible. A carotid Doppler study was performed which shows less than 50% narrowing in both internal carotid arteries. A CT scan of the cervical spine was also performed which did not show any traumatic misalignment of the cervical spine. Once he is stable from alcohol withdrawal and from cardiac condition neurology will follow up with Regard to above findings. Currently he is not able to cooperate. Consult date: 08/30/24 HPI: Jeevan Castellanos is a 69 year old male Seen in intensive care unit. He was admitted to the hospital with the symptoms of swelling of the legs. Subsequently he was found to have symptoms of the congestive cardiac failure. He also drinks alcohol and has some alcohol withdrawal features. He was very agitated and hence he was subsequently transferred to ICU and when I came to see him he has had some sedation and was unable to cooperate for examination at this time. CT scan of brain has shown a right frontal infarct and the hospitalist Dr. Ede hidalgo discussed with me. His creatinine was 1.46 and GFR of 46. Cardiac ejection fraction on echocardiogram was around 15-20%. However he has regular sinus rhythm. Patient is followed by Cardiology. Records indicate medical noncompliance and also severe chronic obstructive pulmonary disease. It was also noted that even though he had finding of a right frontal lobe infarct in the CT scan of brain he was moving both upper lower limbs and there were no other focal neurologic deficit. Review of Systems 2 Review of Systems: ROS unobtainable: Yes unobtainable due to mental status PMFSH Past Medical History Medical History (Updated 08/30/24 @ 17:15 by Carmine Pickett MD) Cerebral infarction Severe chronic obstructive pulmonary disease With good response to bronchodilator noted on PFTs 10/2020 Toe fracture, left multiple toes Bronchitis Nose fracture Surgical History Surgical History History of tonsillectomy Family History Family History Mother , in her 80s Diabetes mellitus Lung cancer COPD (chronic obstructive pulmonary disease) Father , at 83 years old Acute myocardial infarction Biventricular ICD (implantable cardioverter-defibrillator) in place COPD (chronic obstructive pulmonary disease) Sibling Lung cancer Social History Social History Social History: Patient was 3 times. His last between 3 and 5 years ago cancer. He then had a girlfriend who also developed cancer and in August of 2022. 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 He briefly smoked when he was younger. He denies any significant alcohol use. He denies any illicit substance use. Code status: DNR/DNI (per patient request) The patient reports he does not have a surrogate decision maker and has no family members left. He does not have any friends he feels close enough to ask to make that type of decision. Years smoked: 5 Smoking status: Never smoker Alcohol intake: never Substance use: current Substance use type: marijuana Last use: 08/21/24 Do You Feel Safe in your Home?: Yes Lack of Transportation: No Lack of Food: Often True Current Housing: I Do Not Have Housing Concerned About Future Housing: Decline to Answer Difficulty Paying Gas/Electric Bills: Decline to Answer Difficulty Paying for Meds: Decline to Answer Currently Unemployed: Decline to Answer Education: Don't Know Difficulty w/ Childcare or Family Care: Decline to Answer Gender identity (if verbalized by the patient): Male Spiritual care concerns: No Meds Home Medications and Allergies Home Medications ?Medication ?Instructions ?Recorded ?Confirmed ?Type aspirin 81 mg tablet 81 mg PO DAILY 03/06/24 08/28/24 History albuterol sulfate 90 mcg/actuation 2 puff inhalation Q4H PRN 05/27/24 08/28/24 Rx aerosol inhaler Shortness Of Breath Or Wheezing #6.7 grams budesonide 160 mcg-glycopyr 9 2 inh inhalation BID #5.9 grams 05/27/24 08/28/24 Rx mcg-formot 4.8 mcg/actuation HFA inhaler (Breztri Aerosphere) sacubitril 24 mg-valsartan 26 mg 1 tab PO Q12HR #60 tabs 07/18/24 08/28/24 Rx tablet (Entresto) furosemide 20 mg tablet 40 mg (2 x 20 mg) PO DAILY #30 tabs 08/01/24 08/28/24 Rx Allergies Allergy/AdvReac Type Severity Reaction Status Date / Time Sulfa (Sulfonamide Allergy Mild Rash Verified 08/28/24 12:39 Antibiotics) Vital Signs Vital Signs - 24 hr 08/29/24 20:00 08/29/24 20:01 08/29/24 20:39 Temperature Pulse Rate 80 Pulse Rate [Bilateral Pedal (Dorsalis Pedis) Palpation] 88 Respiratory Rate Blood Pressure Pulse Oximetry 96 Oxygen Delivery Room Air Fraction of Inspired Oxygen 21 08/30/24 09:32 08/30/24 09:32 08/30/24 10:10 Temperature 97.5 F L Pulse Rate 94 100 Pulse Rate [Bilateral Pedal (Dorsalis Pedis) Palpation] Respiratory Rate 20 19 Blood Pressure 149/105 H Pulse Oximetry 95 98 Oxygen Delivery Room Air Fraction of Inspired Oxygen 08/30/24 10:10 08/30/24 10:10 08/30/24 11:22 Temperature Pulse Rate 100 65 Pulse Rate [Bilateral Pedal (Dorsalis Pedis) Palpation] Respiratory Rate 28 H Blood Pressure Pulse Oximetry Oxygen Delivery Room Air Fraction of Inspired Oxygen 08/30/24 11:49 08/30/24 12:00 08/30/24 12:00 Temperature Pulse Rate 89 61 Pulse Rate [Bilateral Pedal (Dorsalis Pedis) Palpation] 81 Respiratory Rate 22 H Blood Pressure 141/117 H Pulse Oximetry 97 Oxygen Delivery Room Air Fraction of Inspired Oxygen 08/30/24 12:00 08/30/24 12:00 08/30/24 12:15 Temperature Pulse Rate 61 81 64 Pulse Rate [Bilateral Pedal (Dorsalis Pedis) Palpation] Respiratory Rate 22 H 29 H Blood Pressure 141/117 H Pulse Oximetry 97 Oxygen Delivery Fraction of Inspired Oxygen 08/30/24 14:00 08/30/24 14:00 08/30/24 14:00 Temperature Pulse Rate 65 65 65 Pulse Rate [Bilateral Pedal (Dorsalis Pedis) Palpation] Respiratory Rate 14 14 Blood Pressure 126/83 Pulse Oximetry 100 Oxygen Delivery Fraction of Inspired Oxygen 08/30/24 16:00 08/30/24 16:00 08/30/24 16:00 Temperature Pulse Rate 61 61 Pulse Rate [Bilateral Pedal (Dorsalis Pedis) Palpation] 61 Respiratory Rate 26 H Blood Pressure 121/104 H Pulse Oximetry 100 Oxygen Delivery Room Air Fraction of Inspired Oxygen 08/30/24 16:00 Temperature 96.5 F L Pulse Rate 61 Pulse Rate [Bilateral Pedal (Dorsalis Pedis) Palpation] Respiratory Rate 26 H Blood Pressure 121/104 H Pulse Oximetry 100 Oxygen Delivery Fraction of Inspired Oxygen Exam 2 Narrative: Patient heavily sedated and is not able to cooperate for examination. At this time. The tone appeared reason both upper lower limbs. No involuntary movements were seen. Patient is breathing on his own. His vital signs were stable. Results Labs 08/30/24 05:52 08/30/24 05:52 Labs: Short CBC 08/30/24 Range/Units 05:52 WBC 8.2 (4.5-10.0) K/mm3 Hgb 14.2 (14.0-18.0) g/dL Hct 47.5 (42.0-52.0) % Plt Count 284 (150-375) k/mm3 BMP 08/30/24 05:52 Sodium 142 Potassium 3.9 Chloride 106 Carbon Dioxide 32 H BUN 33 H Creatinine 1.46 H Glucose 91 Calcium 8.6 Liver Function 08/30/24 Range/Units 05:52 Total Bilirubin 1.3 (0.2-1.3) mg/dL AST 44 (17-59) U/L ALT 38 (6-50) U/L Alkaline Phosphatase 79 (38-126) U/L Albumin 3.2 L (3.5-5.1) g/dL
[2024-08-30] MEDS: SACUBITRIL/VALSARTAN 24-26 MG TABLET 1 TAB PO (20:24)
[2024-08-30] MEDS: ATORVASTATIN 40 MG TABLET 80 MG PO (20:24)
[2024-08-30] MEDS: dexmedeTOMIDine 400 MCG/100 ML 400 MCG/100 ML BAG 9.59 MCG IV CONT (22:54)
[2024-08-30 23:48] LABS: Glucose Point of Care 78 mg/dl (65-105)
[2024-08-31] VITALS (25 sets, daily range): BP systolic 90–129; BP diastolic 55–88; PULSE 45–88; RESP 12–30; TEMP 36.3–36.9; O2SAT 92–100
[2024-08-31] MEDS: chlordiazePOXIDE (*CRX) 25 MG CAPSULE 50 MG PO ×2 (01:07→05:31)
[2024-08-31 04:21] LABS: Basophils Absolute Auto 0.1 K/mm3 (0.0-0.1); Basophils Percent Auto 1.5 % (0.2-1.2); Eosinophils Absolute Auto 0.3 K/mm3 (0-0.3); Eosinophils Percent Auto 4.5 % (0-4.4); Hematocrit 51.3 % (42.0-52.0); Hemoglobin 15.4 g/dL (14.0-18.0); Immature Granulocyte Absolute 0.02 K/mm3 (0.00-0.031); Immature Granulocyte Percent A 0.3 % (0-0.5); Lymphocytes Absolute Auto 1.91 K/mm3 (0.9-3.2); Lymphocytes Percent Auto 31.9 % (18.3-44.2); Mean Corpuscular Hemoglobin 30.2 pg (26-34); Mean Corpuscular Volume 100.6 fl (80-100); Mean Platelet Volume 9.2 fl (7.4-10.4); Monocytes Absolute Auto 0.3 K/mm3 (0.1-0.6); Monocytes Percent Auto 5.7 % (2.6-8.5); Neutrophils Absolute Auto 3.4 K/mm3 (1.3-6.7); Neutrophils Percent Auto 56.1 % (45.5-73.1); Platelet Count Result 243 k/mm3 (150-375); Red Cell Distribution Width 14.6 % (11.5-14.5)
[2024-08-31 04:44] LABS: Alanine Aminotransferase 32 U/L (6-50); Alkaline Phosphatase 72 U/L (38-126); Anion Gap 7 mmol/L (4-12); Aspartate Amino Transferase 39 U/L (17-59); Bilirubin,Total 1.6 mg/dL (0.2-1.3); Blood Urea Nitrogen 32 mg/dL (9-20); Calcium 8.7 mg/dL (8.4-10.2); Carbon Dioxide 28 mmol/L (22-30); Chloride 107 mmol/L (98-107); Estimated CRCL calculation 62 ml/min; Estimated Glomerular Filt Rate > 60; Glucose 78 mg/dL (65-110); Magnesium 1.9 mg/dL (1.6-2.3); Potassium 3.9 mmol/L (3.4-5.0); Sodium 142 mmol/L (137-145)
[2024-08-31 05:20] LABS: Glucose Point of Care 85 mg/dl (65-105)
[2024-08-31] MEDS: SACUBITRIL/VALSARTAN 24-26 MG TABLET 1 TAB PO ×2 (09:36→20:38)
[2024-08-31] MEDS: SPIRONOLACTONE 12.5 MG TABLET PO (09:36)
[2024-08-31] MEDS: ASPIRIN 81 MG ENTERIC TABLET PO (09:36)
--- NOTE | 2024-08-31 09:38 | WPDINTPN ---
Progress Note: A&P Assessment and Plan (1) Alcohol withdrawal: Code(s): F10.939 - Alcohol use, unspecified with withdrawal, unspecified Status: Acute Assessment and Plan: Patient presented with agitation, requiring multiple doses of Ativan on the tele floor along with the Haldol and Zyprexa. He then became increased somnolent and was transferred to ICU. Continue low-dose Precedex.. I will lower the Librium dose to 25 mg -continue thiamine IV, will add folic acid IV -continue CIWA protocol -p.r.n. Ativan is ordered (2) Nonischemic cardiomyopathy: Code(s): I42.8 - Other cardiomyopathies Status: Acute Assessment and Plan: Nonischemic Cardiomyopathy with CHF exacerbation and lower extremity edema -cardiology following the patient -continue Coreg, spironolactone, Entresto, aspirin, statin -hold Lasix as patient has limited p.o. intake at this time 07/18/2023: Cardiac catheterization outside facility at [facility] Showed nonischemic cardiomyopathy, EF 30%, normal renal artery go mild CAD, elevated LVEDP at rest to 22 mmHg, moderate pulmonary hypertension 07/16/2024 echocardiogram Summary 1. Four-chamber dilated cardiomyopathy. 2. Severe left ventricular systolic function in a global fashion, EF 15-20% 3. No pericardial effusion. (3) CHF exacerbation: Qualifiers: Heart failure type: unspecified Qualified Code(s): I50.9 - Heart failure, unspecified Code(s): I50.9 - Heart failure, unspecified Status: Acute Assessment and Plan: As above (4) UTI (urinary tract infection): Code(s): N39.0 - Urinary tract infection, site not specified Status: Acute Assessment and Plan: UTI on admission, continue ceftriaxone -urine culture growing E coli, sensitive to Rocephin (5) Stroke: Code(s): I63.9 - Cerebral infarction, unspecified Status: Acute Assessment and Plan: Patient had fall early this morning on 08/30/2024 -08/30: CT brain CT scan brain showed small right frontal lobe infarct, potentially acute, no acute fracture or intracranial hemorrhage -last well time is unknown Patient evaluated by Neurology Continue aspirin statin MRI is ordered and pending as unable to complete the screening from Carotid Dopplers showed less than 50% stenosis of right and left internal carotid artery Echo Summary 1. There is severe left ventricular dysfunction. The left ventricular ejection fraction is visually estimated to be 20%. 2. Agitated saline study is negative for [id number] shunt. Speech consult today Will consult PT OT once patient is off Precedex infusion. Plan DVT prophylaxis: Lovenox Stress ulcer prophylaxis: Protonix Nutrition: Patient was evaluated by speech therapy and modified diet ordered. Code Status: Full code Critical Care Time Spent: 30 minutes Due to a high probability of clinically significant, life threatening deterioration, the patient required my highest level of preparedness to intervene emergently and I personally spent this critical care time directly and personally managing the patient. This critical care time included obtaining a history; examining the patient; pulse oximetry; ordering and review of studies; arranging urgent treatment with development of a management plan; evaluation of patient's response to treatment; frequent reassessment; and discussions with other providers. It was exclusive of separately billable procedures and treating other patients and teaching time. Please see Assessment and Plan section and the rest of the note for further information on patient assessment and treatment This dictation may have been done utilizing a voice recognition system. Attempts have been made to correct errors. However, there may be uncorrected grammatical, spelling, and recognitions errors present. Subjective Date/time seen: 08/31/24 Although patient is on Precedex infusion he is much more awake this morning. He is drowsy but easily wakes up and answers question. He is oriented x2. He states he is thirsty and would like some water. He denies any chest pain shortness a breath nausea vomiting. He states his right ankle hurts from past injury. Full review of system was not obtainable. Sinus rhythm on the monitor with adequate blood pressure. He is on room air. Good urine output. Review of Systems Review of Systems: ROS unobtainable: Yes unobtainable due to medical condition and unobtainable due to mental status Exam Narrative: General: Well-built gentleman, appears stated age, drowsy but easily arousable HEENT:? Pupils are pinpoint and sluggish, sclera is clear Neck:? Supple Respiratory:? Coarse breath sounds bilaterally, decreased air entry on the right side, no wheezing Cardiac:? S1-S2 normal regular rate and rhythm Abdomen:? Soft, nontender, nondistended, decreased bowel sounds Extremities:? Lower extremity edema bilaterally, palpable pedal pulses Neuro:? Patient is somnolent but easily arousable and answers questions. Follows commands with all extremities. Moves all extremities. AO x 2 Skin:? Warm and dry Objective Data Vital Signs Vital Signs: Vital Signs - 24 hr 08/30/24 10:10 08/30/24 10:10 08/30/24 10:10 Temperature 36.4 C L Pulse Rate 100 100 Pulse Rate [Bilateral Pedal (Dorsalis Pedis) Palpation] Respiratory Rate 19 Blood Pressure 149/105 H Pulse Oximetry 98 Oxygen Delivery Room Air 08/30/24 11:22 08/30/24 11:49 08/30/24 12:00 Temperature Pulse Rate 65 89 Pulse Rate [Bilateral Pedal (Dorsalis Pedis) Palpation] 81 Respiratory Rate 28 H Blood Pressure 141/117 H Pulse Oximetry Oxygen Delivery 08/30/24 12:00 08/30/24 12:00 08/30/24 12:00 Temperature Pulse Rate 61 61 81 Pulse Rate [Bilateral Pedal (Dorsalis Pedis) Palpation] Respiratory Rate 22 H 22 H Blood Pressure 141/117 H Pulse Oximetry 97 97 Oxygen Delivery Room Air 08/30/24 12:15 08/30/24 14:00 08/30/24 14:00 Temperature Pulse Rate 64 65 65 Pulse Rate [Bilateral Pedal (Dorsalis Pedis) Palpation] Respiratory Rate 29 H 14 Blood Pressure 126/83 Pulse Oximetry 100 Oxygen Delivery 08/30/24 14:00 08/30/24 16:00 08/30/24 16:00 Temperature Pulse Rate 65 61 Pulse Rate [Bilateral Pedal (Dorsalis Pedis) Palpation] 61 Respiratory Rate 14 26 H Blood Pressure 121/104 H Pulse Oximetry 100 Oxygen Delivery Room Air 08/30/24 16:00 08/30/24 16:00 08/30/24 18:00 Temperature 35.8 C L Pulse Rate 61 61 56 L Pulse Rate [Bilateral Pedal (Dorsalis Pedis) Palpation] Respiratory Rate 26 H Blood Pressure 121/104 H Pulse Oximetry 100 Oxygen Delivery 08/30/24 18:00 08/30/24 20:00 08/30/24 20:00 Temperature 36.6 C Pulse Rate 56 L 56 L 56 L Pulse Rate [Bilateral Pedal (Dorsalis Pedis) Palpation] Respiratory Rate 15 22 H 21 H Blood Pressure 122/87 109/97 H Pulse Oximetry 96 99 Oxygen Delivery 08/30/24 20:00 08/30/24 20:00 08/30/24 20:00 Temperature Pulse Rate 81 Pulse Rate [Bilateral Pedal (Dorsalis Pedis) Palpation] 56 L Respiratory Rate Blood Pressure Pulse Oximetry 99 Oxygen Delivery Room Air 08/30/24 20:26 08/30/24 20:29 08/30/24 21:00 Temperature Pulse Rate 48 L 55 L 53 L Pulse Rate [Bilateral Pedal (Dorsalis Pedis) Palpation] Respiratory Rate 22 H 25 H Blood Pressure Pulse Oximetry Oxygen Delivery 08/30/24 22:00 08/30/24 22:00 08/30/24 22:00 Temperature Pulse Rate 53 L 53 L 53 L Pulse Rate [Bilateral Pedal (Dorsalis Pedis) Palpation] Respiratory Rate 25 H 25 H Blood Pressure 91/64 L Pulse Oximetry 94 Oxygen Delivery 08/30/24 22:54 08/30/24 22:54 08/30/24 23:29 Temperature Pulse Rate 54 L 54 L 51 L Pulse Rate [Bilateral Pedal (Dorsalis Pedis) Palpation] Respiratory Rate 27 H 27 H 24 H Blood Pressure Pulse Oximetry Oxygen Delivery 08/31/24 00:00 08/31/24 00:00 08/31/24 00:00 Temperature 36.4 C Pulse Rate 50 L Pulse Rate [Bilateral Pedal (Dorsalis Pedis) Palpation] 50 L Respiratory Rate 21 H Blood Pressure 101/75 Pulse Oximetry 98 Oxygen Delivery Room Air 08/31/24 00:00 08/31/24 00:00 08/31/24 02:00 Temperature Pulse Rate 48 L 50 L 48 L Pulse Rate [Bilateral Pedal (Dorsalis Pedis) Palpation] Respiratory Rate 21 H Blood Pressure Pulse Oximetry Oxygen Delivery 08/31/24 02:00 08/31/24 02:00 08/31/24 04:00 Temperature Pulse Rate 48 L 48 L Pulse Rate [Bilateral Pedal (Dorsalis Pedis) Palpation] 52 L Respiratory Rate 22 H 22 H Blood Pressure 108/79 Pulse Oximetry 100 Oxygen Delivery 08/31/24 04:00 08/31/24 04:00 08/31/24 04:00 Temperature 36.4 C Pulse Rate 50 L 52 L Pulse Rate [Bilateral Pedal (Dorsalis Pedis) Palpation] Respiratory Rate 24 H Blood Pressure 104/74 Pulse Oximetry 100 98 Oxygen Delivery Room Air 08/31/24 04:00 08/31/24 05:40 08/31/24 06:00 Temperature Pulse Rate 50 L 71 52 L Pulse Rate [Bilateral Pedal (Dorsalis Pedis) Palpation] Respiratory Rate 24 H 22 H Blood Pressure Pulse Oximetry Oxygen Delivery 08/31/24 06:00 08/31/24 06:00 08/31/24 07:15 Temperature Pulse Rate 52 L 52 L 52 L Pulse Rate [Bilateral Pedal (Dorsalis Pedis) Palpation] Respiratory Rate 12 12 23 H Blood Pressure 124/88 Pulse Oximetry 100 Oxygen Delivery 08/31/24 08:00 Temperature Pulse Rate 46 L Pulse Rate [Bilateral Pedal (Dorsalis Pedis) Palpation] Respiratory Rate 30 H Blood Pressure 117/87 Pulse Oximetry 100 Oxygen Delivery Intake/Output Intake/Output: Intake & Output 08/28/24 08/29/24 08/30/24 08/31/24 23:59 23:59 23:59 23:59 Intake Total 250 1546 417.0 299.7 Output Total 3420 1700 800 Balance 250 -1874 -1283.0 -500.3 Meds/Results Medications: Active Medications Generic Name Dose Route Start Last Admin Trade Name Freq PRN Reason Stop Dose Admin Acetaminophen 650 mg 08/28/24 09:45 Acetaminophen 325 Mg Tablet PO Q4H PRN Mild Pain (1-3) or Fever Albuterol 2 puff 08/28/24 13:31 Albuterol Sulfate (*Sp) Aerosol 1 Puff INHALATION Q4H PRN Shortness Of Breath Or Wheezing Aspirin 81 mg 08/29/24 09:00 08/30/24 11:49 Aspirin 81 Mg Enteric Tablet PO [facility] Atorvastatin Calcium 80 mg 08/30/24 21:00 08/30/24 20:24 Atorvastatin 40 Mg Tablet PO 80 mg HS [facility] Administration Carvedilol 6.25 mg 08/29/24 21:00 08/30/24 20:26 Carvedilol 6.25 Mg Tablet PO Not Given Q12HR [facility] Chlordiazepoxide HCl 25 mg 08/31/24 12:00 Chlordiazepoxide (*Crx) 25 Mg Capsule PO Q6HR [facility] Enoxaparin Sodium 40 mg 08/29/24 09:00 08/30/24 12:14 Enoxaparin 40 Mg/0.4 Ml Syringe SUB-Q 40 mg DAILY [facility] Administration Fluticasone/Umeclidinium/Vilanterol 1 puff 08/29/24 08:00 08/30/24 09:30 Fluticasone/Umeclidin/Vilanter 100-62.5-25 Mcg Ellipta INHALATION 1 puff DAILYRT [facility] Administration Folic Acid 1 mg 08/31/24 09:00 Folic Acid 1 Mg/0.2 Ml Inj IV PUSH QAM [facility] Furosemide 40 mg 08/29/24 09:00 08/30/24 11:11 Furosemide Inj 40 Mg/4 Ml Vial IV PUSH 40 mg DAILY [facility] Administration Ceftriaxone Sodium 1 gm in 50 mls @ 100 mls/hr 08/29/24 09:00 08/30/24 11:30 Rocephin 1 Gm/Ns 50 Ml IVPB Infused Q24H [facility] Infusion Dexmedetomidine HCl 400 mcg in 100 mls @ 7.193 mls/hr 08/30/24 11:25 08/31/24 07:15 Precedex 400 Mcg/100 Ml IV CONT 0.3 mcg/kg/hr .[id number] [facility] 7.19 mls/hr Titration Protocol 0.3 MCG/KG/HR Lorazepam 2 mg 08/29/24 18:20 08/30/24 07:05 Lorazepam Inj (*Crx) 2 Mg/Ml Vial IV PUSH 2 mg Q2H PRN Administration CIWA > 15 Pantoprazole Sodium 40 mg 08/31/24 09:00 Pantoprazole Sodium Iv 40 Mg Vial IV PUSH QAM [facility] Perflutren Lipid Microsphere 0 ml 08/28/24 12:36 Perflutren Lipid Microspheres 1.5 Ml Vial Diluted To 10 Ml Total Volume IV PUSH 08/31/24 12:37 ONCE PRN adequate visualization Protocol Sacubitril/Valsartan 1 tab 08/28/24 21:00 08/30/24 20:24 Sacubitril/Valsartan 24-26 Mg Tablet PO 1 tab Q12HR [facility] Administration Spironolactone 12.5 mg 08/31/24 09:00 Spironolactone 12.5 Mg Tablet PO QAM [facility] Thiamine HCl 100 mg 08/29/24 09:00 08/30/24 12:14 Thiamine Hcl 200 Mg/2 Ml Vial IV PUSH 100 mg DAILY [facility] Administration Radiology Results: ITS Impressions Head CT 08/30/24 08:10 IMPRESSION: 1. Small right frontal lobe infarct, potentially acute. Findings were discussed with Jessica Bowers, the nurse caring for the patient, at 8:13 AM. 2. No fracture or acute intracranial hemorrhage. Thoracic/Lumbar Spine CT 08/30/24 13:53 Impression: Degenerative disease, without acute compression fracture within either the thoracic or lumbar spine, as detailed above. Carotid Doppler Study 08/30/24 14:29 IMPRESSION: 1. Less than 50% stenosis in the right internal carotid artery. 2. Less than 50% stenosis in the left internal carotid artery. The right vertebral artery was not visualized, as detailed above. Cervical Spine CT 08/30/24 15:06 IMPRESSION: No acute fracture or traumatic malalignment in the cervical spine. Esophageal wall thickening, consider referral for endoscopy. Aortic ectasia. Pulmonary edema. Chest X-Ray 08/31/24 07:04 IMPRESSION: 1. Cardiomegaly and pulmonary vascular congestion without puja pulmonary edema or other acute cardiopulmonary disease. Labs Labs: Laboratory Results - last 24 hr 08/30/24 08/31/24 08/31/24 23:41 04:13 05:17 WBC 6.0 RBC 5.10 Hgb 15.4 Hct 51.3 MCV 100.6 H MCH 30.2 MCHC 30.0 L RDW 14.6 H Plt Count 243 MPV 9.2 Immature Gran % (Auto) 0.3 Neut % (Auto) 56.1 Lymph % (Auto) 31.9 Baker % (Auto) 5.7 Eos % (Auto) 4.5 H Baso % (Auto) 1.5 H Lymph # (Auto) 1.91 Baker # (Auto) 0.3 Eos # (Auto) 0.3 Baso # (Auto) 0.1 Abs Immat Gran (auto) 0.02 Absolute Neuts (auto) 3.4 Absolute Nucleated RBC 0.000 Nucleated RBC % 0.0 Sodium 142 Potassium 3.9 Chloride 107 Carbon Dioxide 28 Anion Gap 7 BUN 32 H Creatinine 1.12 Estim Creat Clear Calc 62 Estimated GFR > 60 Glucose 78 POC Capillary Glucose 78 85 Calcium 8.7 Phosphorus 3.0 Magnesium 1.9 Total Bilirubin 1.6 H AST 39 ALT 32 Alkaline Phosphatase 72 Total Protein 6.0 L Albumin 3.0 L Quality VTE Prophylaxis VTE prophylaxis: pharmacologic ordered
[2024-08-31] MEDS: ENOXAPARIN 40 MG/0.4 ML SYRINGE SUB-Q (09:41)
[2024-08-31] MEDS: PANTOPRAZOLE SODIUM IV 40 MG VIAL IV PUSH (09:41)
[2024-08-31] MEDS: FOLIC ACID 1 MG/0.2 ML INJ IV PUSH (09:41)
[2024-08-31] MEDS: FUROSEMIDE INJ 40 MG/4 ML VIAL IV PUSH (09:41)
[2024-08-31] MEDS: THIAMINE HCL 200 MG/2 ML VIAL 100 MG IV PUSH (09:42)
--- NOTE | 2024-08-31 10:46 | P.PNCA_ITS ---
Progress Note: A&P Assessment and Plan (1) Nonischemic cardiomyopathy: Code(s): I42.8 - Other cardiomyopathies Status: Acute Assessment and Plan: EF 15-20% IV diuresis, Entresto and restart carvedilol as detailed below (2) Acute on chronic systolic heart failure: Code(s): I50.23 - Acute on chronic systolic (congestive) heart failure Status: Acute Assessment and Plan: He has a severely reduced ejection fraction. Continue Entresto 24/26 mg 1 tablet p.o. b.i.d.. Will switch him to p.o. furosemide 40mg b.i.d. Continue carvedilol to 6.25 mg p.o. b.i.d.. Continue spironolactone. Can also add jardiance if he is able to afford it. Follow renal function and electrolytes (3) Non-sustained ventricular tachycardia: Code(s): I47.29 - Other ventricular tachycardia Status: Acute Assessment and Plan: On carvedilol (4) Essential hypertension: Code(s): I10 - Essential (primary) hypertension Status: Acute Assessment and Plan: At goal (5) Substance abuse: Code(s): F19.10 - Other psychoactive substance abuse, uncomplicated Status: Acute Assessment and Plan: Stated that he is not using. Drug screen not performed this admission although most recently was positive for amphetamines last month (6) Medical non-compliance: Code(s): Z91.199 - Patient's noncompliance with other medical treatment and regimen due to unspecified reason Status: Acute Assessment and Plan: In part due to his homelessness (7) Severe chronic obstructive pulmonary disease: Code(s): J44.9 - Chronic obstructive pulmonary disease, unspecified Status: Acute Plan Cardiology will sign off please call with questions. Subjective Date/time seen: 08/31/24 10:46 Interval history: 69-year-old admitted with edema, acute on chronic CHF Date of service 08/29/2024: On all fours in bed to stretch his back out. No chest pain shortness of breath. Still has swelling Date of service 08/30/2024: He is somnolent after receiving haldol because of agitation secondary to alcohol withdrawal. Being moved to the ICU. Date of service 08/31/2024: Remains somnolent today. Unable to discuss any complaints he may have. He appears comfortable. Review of Systems Review of Systems: All systems reviewed & are unremarkable except as noted in HPI and below ROS unobtainable: Yes unobtainable due to medical condition and unobtainable due to mental status Constitutional: Constitutional: Denies body ache(s) and Denies excessive sweating Eyes: Eyes: Denies blurry vision ENT: Reports Normal hearing present Cardiovascular: Cardiovascular: Denies chest pain, Reports leg edema and Reports dyspnea Respiratory: Respiratory: Reports dyspnea Gastrointestinal: Gastrointestinal: Denies abdominal pain Genitourinary: Genitourinary: Denies hematuria Musculoskeletal: Musculoskeletal: Denies joint swelling Integumentary/Breasts: Skin/Breast: Denies erythema Neurologic: Reports Normal hearing present, Reports Abnormal speech present and Denies behavioral changes Psychiatric: Psychiatric: Denies behavioral changes Endocrine: Endocrine: Denies excessive sweating Hematologic/Lymphatic: Hematologic/Lymphatic: Denies easy bruising Allergic/Immunologic: Allergic/Immunologic: Denies GI upset with certain foods Exam Narrative: Alert oriented appears stated age Const: General: comfortable and no acute distress Orientation/consciousness: No oriented to person, No oriented to place, No oriented to time and patient obtunded HENMT: Face/Nose/Sinus: Normal nares present Mouth: Yes moist mucous membranes Eyes: General: appearance normal, both eyes and all related structures Sclera: sclerae normal Neck: Neck: supple and no JVD Chest: Other: No reproducible chest wall pain to palpation Resp: Effort & Inspection: normal respiratory effort Auscultation: clear to auscultation bilaterally Cardio: Rate: regular rate Rhythm: regular rhythm Heart sounds: no murmurs GI: Inspection: non-distended : Male General Exam: Yes normal external exam Skin: General skin exam: normal color Other: Has some discoloration of his toes but skin is warm Neuro: General: No oriented to person, No oriented to place, No oriented to time and patient obtunded Cranial nerves: Yes Normal hearing present Speech: normal speech and Abnormal speech present Extrem: General: no edema and no pedal edema Psych: Mental Status: mental status grossly abnormal Affect: normal affect Objective Data Vital Signs Vital Signs: Vital Signs - 24 hr 08/30/24 11:22 08/30/24 11:49 08/30/24 12:00 Temperature Pulse Rate 65 89 Pulse Rate [Bilateral Pedal (Dorsalis Pedis) Palpation] 81 Respiratory Rate 28 H Blood Pressure 141/117 H Pulse Oximetry Oxygen Delivery 08/30/24 12:00 08/30/24 12:00 08/30/24 12:00 Temperature Pulse Rate 61 61 81 Pulse Rate [Bilateral Pedal (Dorsalis Pedis) Palpation] Respiratory Rate 22 H 22 H Blood Pressure 141/117 H Pulse Oximetry 97 97 Oxygen Delivery Room Air 08/30/24 12:15 08/30/24 14:00 08/30/24 14:00 Temperature Pulse Rate 64 65 65 Pulse Rate [Bilateral Pedal (Dorsalis Pedis) Palpation] Respiratory Rate 29 H 14 Blood Pressure 126/83 Pulse Oximetry 100 Oxygen Delivery 08/30/24 14:00 08/30/24 16:00 08/30/24 16:00 Temperature Pulse Rate 65 61 Pulse Rate [Bilateral Pedal (Dorsalis Pedis) Palpation] 61 Respiratory Rate 14 26 H Blood Pressure 121/104 H Pulse Oximetry 100 Oxygen Delivery Room Air 08/30/24 16:00 08/30/24 16:00 08/30/24 18:00 Temperature 35.8 C L Pulse Rate 61 61 56 L Pulse Rate [Bilateral Pedal (Dorsalis Pedis) Palpation] Respiratory Rate 26 H Blood Pressure 121/104 H Pulse Oximetry 100 Oxygen Delivery 08/30/24 18:00 08/30/24 20:00 08/30/24 20:00 Temperature 36.6 C Pulse Rate 56 L 56 L 56 L Pulse Rate [Bilateral Pedal (Dorsalis Pedis) Palpation] Respiratory Rate 15 22 H 21 H Blood Pressure 122/87 109/97 H Pulse Oximetry 96 99 Oxygen Delivery 08/30/24 20:00 08/30/24 20:00 08/30/24 20:00 Temperature Pulse Rate 81 Pulse Rate [Bilateral Pedal (Dorsalis Pedis) Palpation] 56 L Respiratory Rate Blood Pressure Pulse Oximetry 99 Oxygen Delivery Room Air 08/30/24 20:26 08/30/24 20:29 08/30/24 21:00 Temperature Pulse Rate 48 L 55 L 53 L Pulse Rate [Bilateral Pedal (Dorsalis Pedis) Palpation] Respiratory Rate 22 H 25 H Blood Pressure Pulse Oximetry Oxygen Delivery 08/30/24 22:00 08/30/24 22:00 08/30/24 22:00 Temperature Pulse Rate 53 L 53 L 53 L Pulse Rate [Bilateral Pedal (Dorsalis Pedis) Palpation] Respiratory Rate 25 H 25 H Blood Pressure 91/64 L Pulse Oximetry 94 Oxygen Delivery 08/30/24 22:54 08/30/24 22:54 08/30/24 23:29 Temperature Pulse Rate 54 L 54 L 51 L Pulse Rate [Bilateral Pedal (Dorsalis Pedis) Palpation] Respiratory Rate 27 H 27 H 24 H Blood Pressure Pulse Oximetry Oxygen Delivery 08/31/24 00:00 08/31/24 00:00 08/31/24 00:00 Temperature 36.4 C Pulse Rate 50 L Pulse Rate [Bilateral Pedal (Dorsalis Pedis) Palpation] 50 L Respiratory Rate 21 H Blood Pressure 101/75 Pulse Oximetry 98 Oxygen Delivery Room Air 08/31/24 00:00 08/31/24 00:00 08/31/24 02:00 Temperature Pulse Rate 48 L 50 L 48 L Pulse Rate [Bilateral Pedal (Dorsalis Pedis) Palpation] Respiratory Rate 21 H Blood Pressure Pulse Oximetry Oxygen Delivery 08/31/24 02:00 08/31/24 02:00 08/31/24 04:00 Temperature Pulse Rate 48 L 48 L Pulse Rate [Bilateral Pedal (Dorsalis Pedis) Palpation] 52 L Respiratory Rate 22 H 22 H Blood Pressure 108/79 Pulse Oximetry 100 Oxygen Delivery 08/31/24 04:00 08/31/24 04:00 08/31/24 04:00 Temperature 36.4 C Pulse Rate 50 L 52 L Pulse Rate [Bilateral Pedal (Dorsalis Pedis) Palpation] Respiratory Rate 24 H Blood Pressure 104/74 Pulse Oximetry 100 98 Oxygen Delivery Room Air 08/31/24 04:00 08/31/24 05:40 08/31/24 06:00 Temperature Pulse Rate 50 L 71 52 L Pulse Rate [Bilateral Pedal (Dorsalis Pedis) Palpation] Respiratory Rate 24 H 22 H Blood Pressure Pulse Oximetry Oxygen Delivery 08/31/24 06:00 08/31/24 06:00 08/31/24 07:15 Temperature Pulse Rate 52 L 52 L 52 L Pulse Rate [Bilateral Pedal (Dorsalis Pedis) Palpation] Respiratory Rate 12 12 23 H Blood Pressure 124/88 Pulse Oximetry 100 Oxygen Delivery 08/31/24 08:00 08/31/24 08:00 08/31/24 10:00 Temperature Pulse Rate 62 46 L 50 L Pulse Rate [Bilateral Pedal (Dorsalis Pedis) Palpation] Respiratory Rate 14 30 H 19 Blood Pressure 117/87 Pulse Oximetry 100 Oxygen Delivery 08/31/24 10:00 Temperature Pulse Rate 50 L Pulse Rate [Bilateral Pedal (Dorsalis Pedis) Palpation] Respiratory Rate 19 Blood Pressure 115/81 Pulse Oximetry 100 Oxygen Delivery Intake/Output Intake/Output: Intake & Output 08/28/24 08/29/24 08/30/24 08/31/24 23:59 23:59 23:59 23:59 Intake Total 250 1546 417.0 314.7 Output Total 3420 1700 800 Balance 250 -1874 -1283.0 -485.3 Meds/Results Medications: Active Medications Generic Name Dose Route Start Last Admin Trade Name Freq PRN Reason Stop Dose Admin Acetaminophen 650 mg 08/28/24 09:45 Acetaminophen 325 Mg Tablet PO Q4H PRN Mild Pain (1-3) or Fever Albuterol 2 puff 08/28/24 13:31 Albuterol Sulfate (*Sp) Aerosol 1 Puff INHALATION Q4H PRN Shortness Of Breath Or Wheezing Aspirin 81 mg 08/29/24 09:00 08/31/24 09:36 Aspirin 81 Mg Enteric Tablet PO 81 mg QAM SOLEDAD Administration Atorvastatin Calcium 80 mg 08/30/24 21:00 08/30/24 20:24 Atorvastatin 40 Mg Tablet PO 80 mg HS SOLEDAD Administration Carvedilol 6.25 mg 08/29/24 21:00 08/30/24 20:26 Carvedilol 6.25 Mg Tablet PO Not Given Q12HR [facility] Chlordiazepoxide HCl 25 mg 08/31/24 12:00 Chlordiazepoxide (*Crx) 25 Mg Capsule PO Q6HR [facility] Enoxaparin Sodium 40 mg 08/29/24 09:00 08/31/24 09:41 Enoxaparin 40 Mg/0.4 Ml Syringe SUB-Q 40 mg DAILY SOLEDAD Administration Fluticasone/Umeclidinium/Vilanterol 1 puff 08/29/24 08:00 08/30/24 09:30 Fluticasone/Umeclidin/Vilanter 100-62.5-25 Mcg Ellipta INHALATION 1 puff DAILYRT [facility] Administration Folic Acid 1 mg 08/31/24 09:00 08/31/24 09:41 Folic Acid 1 Mg/0.2 Ml Inj IV PUSH 1 mg QAM SOLEDAD Administration Furosemide 40 mg 08/29/24 09:00 08/31/24 09:41 Furosemide Inj 40 Mg/4 Ml Vial IV PUSH 40 mg DAILY SOLEDAD Administration Ceftriaxone Sodium 1 gm in 50 mls @ 100 mls/hr 08/29/24 09:00 08/31/24 09:41 Rocephin 1 Gm/Ns 50 Ml IVPB 100 mls/hr Q24H SOLEDAD Administration Dexmedetomidine HCl 400 mcg in 100 mls @ 4.795 mls/hr 08/30/24 11:25 08/31/24 10:00 Precedex 400 Mcg/100 Ml IV CONT 0 mcg/kg/hr .[id number] SOLEDAD 0 mls/hr Titration Protocol 0.2 MCG/KG/HR Lorazepam 2 mg 08/29/24 18:20 08/30/24 07:05 Lorazepam Inj (*Crx) 2 Mg/Ml Vial IV PUSH 2 mg Q2H PRN Administration CIWA > 15 Pantoprazole Sodium 40 mg 08/31/24 09:00 08/31/24 09:41 Pantoprazole Sodium Iv 40 Mg Vial IV PUSH 40 mg QAM SOLEDAD Administration Perflutren Lipid Microsphere 0 ml 08/28/24 12:36 Perflutren Lipid Microspheres 1.5 Ml Vial Diluted To 10 Ml Total Volume IV PUSH 08/31/24 12:37 ONCE PRN adequate visualization Protocol Sacubitril/Valsartan 1 tab 08/28/24 21:00 08/31/24 09:36 Sacubitril/Valsartan 24-26 Mg Tablet PO 1 tab Q12HR SOLEDAD Administration Spironolactone 12.5 mg 08/31/24 09:00 08/31/24 09:36 Spironolactone 12.5 Mg Tablet PO 12.5 mg QAM SOLEDAD Administration Thiamine HCl 100 mg 08/29/24 09:00 08/31/24 09:42 Thiamine Hcl 200 Mg/2 Ml Vial IV PUSH 100 mg DAILY SOLEDAD Administration Radiology Results: ITS Impressions Head CT 08/30/24 08:10 IMPRESSION: 1. Small right frontal lobe infarct, potentially acute. Findings were discussed with Jessica Bowers, the nurse caring for the patient, at 8:13 AM. 2. No fracture or acute intracranial hemorrhage. Thoracic/Lumbar Spine CT 08/30/24 13:53 Impression: Degenerative disease, without acute compression fracture within either the thoracic or lumbar spine, as detailed above. Carotid Doppler Study 08/30/24 14:29 IMPRESSION: 1. Less than 50% stenosis in the right internal carotid artery. 2. Less than 50% stenosis in the left internal carotid artery. The right vertebral artery was not visualized, as detailed above. Cervical Spine CT 08/30/24 15:06 IMPRESSION: No acute fracture or traumatic malalignment in the cervical spine. Esophageal wall thickening, consider referral for endoscopy. Aortic ectasia. Pulmonary edema. Chest X-Ray 08/31/24 07:04 IMPRESSION: 1. Cardiomegaly and pulmonary vascular congestion without puja pulmonary edema or other acute cardiopulmonary disease. Labs Labs: Laboratory Results - last 24 hr 08/30/24 08/31/24 08/31/24 23:41 04:13 05:17 WBC 6.0 RBC 5.10 Hgb 15.4 Hct 51.3 MCV 100.6 H MCH 30.2 MCHC 30.0 L RDW 14.6 H Plt Count 243 MPV 9.2 Immature Gran % (Auto) 0.3 Neut % (Auto) 56.1 Lymph % (Auto) 31.9 [place] % (Auto) 5.7 Eos % (Auto) 4.5 H Baso % (Auto) 1.5 H Lymph # (Auto) 1.91 [place] # (Auto) 0.3 Eos # (Auto) 0.3 Baso # (Auto) 0.1 Abs Immat Gran (auto) 0.02 Absolute Neuts (auto) 3.4 Absolute Nucleated RBC 0.000 Nucleated RBC % 0.0 Sodium 142 Potassium 3.9 Chloride 107 Carbon Dioxide 28 Anion Gap 7 BUN 32 H Creatinine 1.12 Estim Creat Clear Calc 62 Estimated GFR > 60 Glucose 78 POC Capillary Glucose 78 85 Calcium 8.7 Phosphorus 3.0 Magnesium 1.9 Total Bilirubin 1.6 H AST 39 ALT 32 Alkaline Phosphatase 72 Total Protein 6.0 L Albumin 3.0 L Quality VTE Prophylaxis VTE prophylaxis: pharmacologic ordered
[2024-08-31 11:26] LABS: Glucose Point of Care 46 mg/dl (65-105)
[2024-08-31 11:47] LABS: Glucose Point of Care 62 mg/dl (65-105)
[2024-08-31 11:47] LABS: Glucose Point of Care 41 mg/dl (65-105)
[2024-08-31] MEDS: chlordiazePOXIDE (*CRX) 25 MG CAPSULE PO ×2 (11:54→19:12)
[2024-08-31 12:16] LABS: Glucose Point of Care 22 mg/dl (65-105)
[2024-08-31 12:16] LABS: Glucose Point of Care 133 mg/dl (65-105)
--- NOTE | 2024-08-31 15:29 | PM.IMPN ---
Progress Note: A&P Assessment and Plan (1) Acute on chronic systolic heart failure: Code(s): I50.23 - Acute on chronic systolic (congestive) heart failure Status: Acute Assessment and Plan: Echo EF 15-20% Cardiology consulted IV Lasix daily Echocardiogram with no shunt. Recent echo with EF 15-20% Fluid restriction Entresto and carvedilol Cardiology following (2) UTI (urinary tract infection): Code(s): N39.0 - Urinary tract infection, site not specified Status: Acute Assessment and Plan: Rocephin Follow urine culture (3) Acute kidney injury: Code(s): N17.9 - Acute kidney failure, unspecified Status: Acute Assessment and Plan: Unknown if history of CKD Daily BMP Avoid nephrotoxic medications Creatinine improved to stable (4) Medical non-compliance: Code(s): Z91.199 - Patient's noncompliance with other medical treatment and regimen due to unspecified reason Status: Acute Assessment and Plan: Patient is homeless (5) Substance abuse: Code(s): F19.10 - Other psychoactive substance abuse, uncomplicated Status: Acute Assessment and Plan: [facility] protocol Banana bag Thiamine (6) Essential hypertension: Code(s): I10 - Essential (primary) hypertension Status: Acute Assessment and Plan: Continue Entresto (7) Transaminitis: Code(s): R74.01 - Elevation of levels of liver transaminase levels Status: Acute Assessment and Plan: CMP stable to improved (8) Alcohol withdrawal: Code(s): F10.939 - Alcohol use, unspecified with withdrawal, unspecified Status: Acute Assessment and Plan: Ongoing issue leading to agitation and confusion. Will not take any oral Librium Receiving Haldol/Zyprexa/Ativan With ongoing agitation and new findings of recent stroke possibly treated with Precedex drip Low-dose Librium started Continue on [facility] protocol (9) Stroke: Code(s): I63.9 - Cerebral infarction, unspecified Status: Acute Assessment and Plan: CT head this a.m. with findings of possible acute right frontal lobe infarct. No acute fracture intracranial hemorrhage noted Discussed with Neurology. Confusion ongoing since yesterday likely out of window. With borderline renal function does not suggest performing CTA head and neck for thrombectomy as he will be out of window for that as well. Neurology recommended MRI brain if possible along with carotid Doppler. Will continue aspirin along with statin Aspirin will be given rectally at this time. Monitor on telemetry Echo with EF 20% negative for [id number] shunt MRI could not be completed due to inability to complete the screening form Carotid Doppler less than 50% bilaterally PT OT to see Subjective Date/time seen: 08/31/24 15:29 Interval history: Patient was placed on Precedex drip. Off since this a.m.. Confused. Could not verify history to be able to do MRI. Review of Systems Review of Systems: ROS unobtainable: Yes unobtainable due to mental status Exam Narrative: General: Well-built gentleman, appears stated age, drowsy but easily arousable HEENT:? Pupils are pinpoint and sluggish, sclera is clear Neck:? Supple Respiratory:? Coarse breath sounds bilaterally, decreased air entry on the right side, no wheezing Cardiac:? S1-S2 normal regular rate and rhythm Abdomen:? Soft, nontender, nondistended, decreased bowel sounds Extremities:? Lower extremity edema bilaterally, palpable pedal pulses Neuro:? Patient is somnolent but easily arousable and answers questions. Follows commands with all extremities. Moves all extremities. AO x 2 Skin:? Warm and dry Objective Data Vital Signs Vital Signs: Vital Signs - 24 hr 08/30/24 16:00 08/30/24 16:00 08/30/24 16:00 Temperature Pulse Rate 61 61 Pulse Rate [Bilateral Pedal (Dorsalis Pedis) Palpation] 61 Respiratory Rate 26 H Blood Pressure 121/104 H Pulse Oximetry 100 Oxygen Delivery Room Air 08/30/24 16:00 08/30/24 18:00 08/30/24 18:00 Temperature 96.5 F L Pulse Rate 61 56 L 56 L Pulse Rate [Bilateral Pedal (Dorsalis Pedis) Palpation] Respiratory Rate 26 H 15 Blood Pressure 121/104 H 122/87 Pulse Oximetry 100 96 Oxygen Delivery 08/30/24 20:00 08/30/24 20:00 08/30/24 20:00 Temperature 97.9 F Pulse Rate 56 L 56 L 81 Pulse Rate [Bilateral Pedal (Dorsalis Pedis) Palpation] Respiratory Rate 22 H 21 H Blood Pressure 109/97 H Pulse Oximetry 99 Oxygen Delivery 08/30/24 20:00 08/30/24 20:00 08/30/24 20:26 Temperature Pulse Rate 48 L Pulse Rate [Bilateral Pedal (Dorsalis Pedis) Palpation] 56 L Respiratory Rate Blood Pressure Pulse Oximetry 99 Oxygen Delivery Room Air 08/30/24 20:29 08/30/24 21:00 08/30/24 22:00 Temperature Pulse Rate 55 L 53 L 53 L Pulse Rate [Bilateral Pedal (Dorsalis Pedis) Palpation] Respiratory Rate 22 H 25 H 25 H Blood Pressure Pulse Oximetry Oxygen Delivery 08/30/24 22:00 08/30/24 22:00 08/30/24 22:54 Temperature Pulse Rate 53 L 53 L 54 L Pulse Rate [Bilateral Pedal (Dorsalis Pedis) Palpation] Respiratory Rate 25 H 27 H Blood Pressure 91/64 L Pulse Oximetry 94 Oxygen Delivery 08/30/24 22:54 08/30/24 23:29 08/31/24 00:00 Temperature Pulse Rate 54 L 51 L Pulse Rate [Bilateral Pedal (Dorsalis Pedis) Palpation] 50 L Respiratory Rate 27 H 24 H Blood Pressure Pulse Oximetry Oxygen Delivery 08/31/24 00:00 08/31/24 00:00 08/31/24 00:00 Temperature 97.6 F Pulse Rate 50 L 48 L Pulse Rate [Bilateral Pedal (Dorsalis Pedis) Palpation] Respiratory Rate 21 H Blood Pressure 101/75 Pulse Oximetry 98 Oxygen Delivery Room Air 08/31/24 00:00 08/31/24 02:00 08/31/24 02:00 Temperature Pulse Rate 50 L 48 L 48 L Pulse Rate [Bilateral Pedal (Dorsalis Pedis) Palpation] Respiratory Rate 21 H 22 H Blood Pressure 108/79 Pulse Oximetry 100 Oxygen Delivery 08/31/24 02:00 08/31/24 04:00 08/31/24 04:00 Temperature Pulse Rate 48 L Pulse Rate [Bilateral Pedal (Dorsalis Pedis) Palpation] 52 L Respiratory Rate 22 H Blood Pressure Pulse Oximetry 100 Oxygen Delivery Room Air 08/31/24 04:00 08/31/24 04:00 08/31/24 04:00 Temperature 97.6 F Pulse Rate 50 L 52 L 50 L Pulse Rate [Bilateral Pedal (Dorsalis Pedis) Palpation] Respiratory Rate 24 H 24 H Blood Pressure 104/74 Pulse Oximetry 98 Oxygen Delivery 08/31/24 05:40 08/31/24 06:00 08/31/24 06:00 Temperature Pulse Rate 71 52 L 52 L Pulse Rate [Bilateral Pedal (Dorsalis Pedis) Palpation] Respiratory Rate 22 H 12 Blood Pressure 124/88 Pulse Oximetry 100 Oxygen Delivery 08/31/24 06:00 08/31/24 07:15 08/31/24 08:00 Temperature Pulse Rate 52 L 52 L 62 Pulse Rate [Bilateral Pedal (Dorsalis Pedis) Palpation] Respiratory Rate 12 23 H 14 Blood Pressure Pulse Oximetry Oxygen Delivery 08/31/24 08:00 08/31/24 08:00 08/31/24 10:00 Temperature Pulse Rate 50 L 46 L 50 L Pulse Rate [Bilateral Pedal (Dorsalis Pedis) Palpation] Respiratory Rate 30 H 19 Blood Pressure 117/87 Pulse Oximetry 100 Oxygen Delivery 08/31/24 10:00 08/31/24 10:00 08/31/24 12:00 Temperature Pulse Rate 50 L 50 L 67 Pulse Rate [Bilateral Pedal (Dorsalis Pedis) Palpation] Respiratory Rate 19 23 H Blood Pressure 115/81 Pulse Oximetry 100 Oxygen Delivery 08/31/24 12:00 08/31/24 12:00 08/31/24 12:23 Temperature Pulse Rate 82 57 L Pulse Rate [Bilateral Pedal (Dorsalis Pedis) Palpation] Respiratory Rate 18 Blood Pressure 129/87 Pulse Oximetry 100 Oxygen Delivery 08/31/24 14:00 Temperature Pulse Rate 61 Pulse Rate [Bilateral Pedal (Dorsalis Pedis) Palpation] Respiratory Rate 23 H Blood Pressure Pulse Oximetry 92 Oxygen Delivery Intake/Output Intake/Output: Intake & Output 08/28/24 08/29/24 08/30/24 08/31/24 23:59 23:59 23:59 23:59 Intake Total 250 1546 417.0 1234.7 Output Total 3420 1700 1900 Balance 250 -1874 -1283.0 -665.3 Meds/Results Medications: Active Medications Generic Name Dose Route Start Last Admin Trade Name Freq PRN Reason Stop Dose Admin Acetaminophen 650 mg 08/28/24 09:45 Acetaminophen 325 Mg Tablet PO Q4H PRN Mild Pain (1-3) or Fever Albuterol 2 puff 08/28/24 13:31 Albuterol Sulfate (*Sp) Aerosol 1 Puff INHALATION Q4H PRN Shortness Of Breath Or Wheezing Aspirin 81 mg 08/29/24 09:00 08/31/24 09:36 Aspirin 81 Mg Enteric Tablet PO 81 mg QAM SOLEDAD Administration Atorvastatin Calcium 80 mg 08/30/24 21:00 08/30/24 20:24 Atorvastatin 40 Mg Tablet PO 80 mg HS SOLEDAD Administration Carvedilol 6.25 mg 08/29/24 21:00 08/30/24 20:26 Carvedilol 6.25 Mg Tablet PO Not Given Q12HR SOLEDAD Chlordiazepoxide HCl 25 mg 08/31/24 12:00 08/31/24 11:54 Chlordiazepoxide (*Crx) 25 Mg Capsule PO 25 mg Q6HR SOLEDAD Administration Enoxaparin Sodium 40 mg 08/29/24 09:00 08/31/24 09:41 Enoxaparin 40 Mg/0.4 Ml Syringe SUB-Q 40 mg DAILY SOLEDAD Administration Fluticasone/Umeclidinium/Vilanterol 1 puff 08/29/24 08:00 08/31/24 12:45 Fluticasone/Umeclidin/Vilanter 100-62.5-25 Mcg Ellipta INHALATION Not Given DAILYRT SOLEDAD Folic Acid 1 mg 08/31/24 09:00 08/31/24 09:41 Folic Acid 1 Mg/0.2 Ml Inj IV PUSH 1 mg QAM SOLEDAD Administration Ceftriaxone Sodium 1 gm in 50 mls @ 100 mls/hr 08/29/24 09:00 08/31/24 09:41 Rocephin 1 Gm/Ns 50 Ml IVPB 100 mls/hr Q24H SOLEDAD Administration Dexmedetomidine HCl 400 mcg in 100 mls @ 0 mls/hr 08/30/24 11:25 08/31/24 12:00 Precedex 400 Mcg/100 Ml IV CONT 0 mcg/kg/hr .Q0M SOLEDAD 0 mls/hr Titration Protocol Lorazepam 2 mg 08/29/24 18:20 08/30/24 07:05 Lorazepam Inj (*Crx) 2 Mg/Ml Vial IV PUSH 2 mg Q2H PRN Administration CIWA > 15 Pantoprazole Sodium 40 mg 08/31/24 09:00 08/31/24 09:41 Pantoprazole Sodium Iv 40 Mg Vial IV PUSH 40 mg QAM SOLEDAD Administration Sacubitril/Valsartan 1 tab 08/28/24 21:00 08/31/24 09:36 Sacubitril/Valsartan 24-26 Mg Tablet PO 1 tab Q12HR SOLEDAD Administration Spironolactone 12.5 mg 08/31/24 09:00 08/31/24 09:36 Spironolactone 12.5 Mg Tablet PO 12.5 mg QAM SOLEDAD Administration Thiamine HCl 100 mg 08/29/24 09:00 08/31/24 09:42 Thiamine Hcl 200 Mg/2 Ml Vial IV PUSH 100 mg DAILY SOLEDAD Administration Radiology Results: ITS Impressions Head CT 08/30/24 08:10 IMPRESSION: 1. Small right frontal lobe infarct, potentially acute. Findings were discussed with Jessica Bowers, the nurse caring for the patient, at 8:13 AM. 2. No fracture or acute intracranial hemorrhage. Thoracic/Lumbar Spine CT 08/30/24 13:53 Impression: Degenerative disease, without acute compression fracture within either the thoracic or lumbar spine, as detailed above. Carotid Doppler Study 08/30/24 14:29 IMPRESSION: 1. Less than 50% stenosis in the right internal carotid artery. 2. Less than 50% stenosis in the left internal carotid artery. The right vertebral artery was not visualized, as detailed above. Cervical Spine CT 08/30/24 15:06 IMPRESSION: No acute fracture or traumatic malalignment in the cervical spine. Esophageal wall thickening, consider referral for endoscopy. Aortic ectasia. Pulmonary edema. Chest X-Ray 08/31/24 07:04 IMPRESSION: 1. Cardiomegaly and pulmonary vascular congestion without puja pulmonary edema or other acute cardiopulmonary disease. Labs Labs: Laboratory Results - last 24 hr 08/30/24 08/31/24 08/31/24 23:41 04:13 05:17 WBC 6.0 RBC 5.10 Hgb 15.4 Hct 51.3 MCV 100.6 H MCH 30.2 MCHC 30.0 L RDW 14.6 H Plt Count 243 MPV 9.2 Immature Gran % (Auto) 0.3 Neut % (Auto) 56.1 Lymph % (Auto) 31.9 Coffee % (Auto) 5.7 Eos % (Auto) 4.5 H Baso % (Auto) 1.5 H Lymph # (Auto) 1.91 Coffee # (Auto) 0.3 Eos # (Auto) 0.3 Baso # (Auto) 0.1 Abs Immat Gran (auto) 0.02 Absolute Neuts (auto) 3.4 Absolute Nucleated RBC 0.000 Nucleated RBC % 0.0 Sodium 142 Potassium 3.9 Chloride 107 Carbon Dioxide 28 Anion Gap 7 BUN 32 H Creatinine 1.12 Estim Creat Clear Calc 62 Estimated GFR > 60 Glucose 78 POC Capillary Glucose 78 85 Calcium 8.7 Phosphorus 3.0 Magnesium 1.9 Total Bilirubin 1.6 H AST 39 ALT 32 Alkaline Phosphatase 72 Total Protein 6.0 L Albumin 3.0 L 08/31/24 08/31/24 08/31/24 11:14 11:40 11:44 WBC RBC Hgb Hct MCV MCH MCHC RDW Plt Count MPV Immature Gran % (Auto) Neut % (Auto) Lymph % (Auto) Coffee % (Auto) Eos % (Auto) Baso % (Auto) Lymph # (Auto) Coffee # (Auto) Eos # (Auto) Baso # (Auto) Abs Immat Gran (auto) Absolute Neuts (auto) Absolute Nucleated RBC Nucleated RBC % Sodium Potassium Chloride Carbon Dioxide Anion Gap BUN Creatinine Estim Creat Clear Calc Estimated GFR Glucose POC Capillary Glucose 46 L* 41 L* 62 L Calcium Phosphorus Magnesium Total Bilirubin AST ALT Alkaline Phosphatase Total Protein Albumin 08/31/24 08/31/24 12:13 12:15 WBC RBC Hgb Hct MCV MCH MCHC RDW Plt Count MPV Immature Gran % (Auto) Neut % (Auto) Lymph % (Auto) Coffee % (Auto) Eos % (Auto) Baso % (Auto) Lymph # (Auto) Coffee # (Auto) Eos # (Auto) Baso # (Auto) Abs Immat Gran (auto) Absolute Neuts (auto) Absolute Nucleated RBC Nucleated RBC % Sodium Potassium Chloride Carbon Dioxide Anion Gap BUN Creatinine Estim Creat Clear Calc Estimated GFR Glucose POC Capillary Glucose 22 L* 133 H Calcium Phosphorus Magnesium Total Bilirubin AST ALT Alkaline Phosphatase Total Protein Albumin
[2024-08-31 17:39] LABS: Glucose Point of Care 95 mg/dl (65-105)
--- NOTE | 2024-08-31 20:27 | P.PNCROSS_ITS ---
Event Note Event Note Event Note: Cross Coverage: 20:00 - Called to the bedside in the ICU due to patient agitation. Patient attempted to kick the bedside RN and making statements that he is going to leave the hospital. Patient stating he has not been given enough fluids or food desp ite being offered fluids and food. Patient has been educated multiple times on current fluid restriction due to poor EF. Patient is able to answer orientation questions, however does not demonstrate any insight or understanding of his current diagnoses. Patient also making statements such as it was not your business if I wanted to leave this hospital and shoot myself it is not your business if I want to leave and it hurts me or kills me . Patient will not elaborate if he is suicidal. Patient unable to elaborate beyond wanting more food and drink why he would like to leave hospital. Patient also repeatedly saying that he did not have a stroke and he wanted to see the x-ray. Head CT pulled up and shown to the patient and stroke further discussed. However he reported that this was not good enough as I am not a neurosurgeon. Spoke with cutter operator helper, Syed HENRY, around 20:20 to discuss the patient. Radial Drill Operator [employer] in agreement that the patient is not capable currently making his own medical decisions. Patient given 4 mg of Ativan with security at the bedside for agitation. Will resume Precedex if this does not ease the patient's agitation and if he continues to display violent tendencies. 21:30 - Patient continuing to be verbally aggressive however, initially longer violent. No respiratory depression or somnolence noted. RNs at the bedside trying to cover the patient and he made attempts to grab one of the nurses. Currently on 0.3 mcg/kg/hr, increasing to 0.4 mcg/kg/hr.
[2024-08-31] MEDS: LORazepam INJ (*CRX) 2 MG/ML VIAL 4 MG IV PUSH (20:37)
[2024-08-31] MEDS: ATORVASTATIN 40 MG TABLET 80 MG PO (20:38)
[2024-08-31] MEDS: dexmedeTOMIDine 400 MCG/100 ML 400 MCG/100 ML BAG IV CONT (20:46)
[2024-09-01] VITALS (24 sets, daily range): BP systolic 65–142; BP diastolic 51–100; PULSE 47–100; RESP 13–26; TEMP 36.5–37.1; O2SAT 91–100
[2024-09-01 00:23] LABS: Glucose Point of Care 87 mg/dl (65-105)
[2024-09-01] MEDS: HALOPERIDOL LACTATE 5 MG/ML VIAL 10 MG IM (00:56)
--- NOTE | 2024-09-01 01:21 | PC.NURSE ---
This RN paused Precedex at 0000 due to a blood pressure of 65/51(57). Patient then woke up and became verbally/physically aggressive. Patient was leaning over railings about to fall out of bed when staff caught him. This RN and Krystal RN spoke to Rogelio PENN. Orders for restraints and IM haldol obtained. Restraints applied. Haldol administered. Patient educated on restraints. Patient resting in bed while yelling at this time.
--- NOTE | 2024-09-01 01:41 | P.PNCROSS_ITS ---
Event Note Event Note Event Note: 0015--Patient swinging at staff and fighting. Earlier patient had been given A tivan and placed on Precedex drip. Precedex has been titrated up but patient still fighting through medication. Restraints x2 extremities placed for staff safety. 0050--Patient still fighting staff. Restraints increased to 4 extremities for staff safety. Had ordered IM Geodon but this product not available. Order changed to IM Haldol 10 mg x1. QTC was not prolonged on prior EKG. 0056--Haldol IM given. Face to Face completed at 0110. For staff and patient safety, patient still requires restraints.
[2024-09-01] MEDS: dexmedeTOMIDine 400 MCG/100 ML 400 MCG/100 ML BAG IV CONT (02:42)
[2024-09-01 03:41] LABS: Hematocrit 49.1 % (42.0-52.0); Hemoglobin 15.1 g/dL (14.0-18.0); Mean Corpuscular HGB Conc 30.8 g/dl (32-36); Mean Corpuscular Hemoglobin 30.8 pg (26-34); Mean Corpuscular Volume 100.2 fl (80-100); Mean Platelet Volume 9.5 fl (7.4-10.4); Platelet Count Result 252 k/mm3 (150-375); Red Cell Distribution Width 14.5 % (11.5-14.5); White Blood Count 6.4 K/mm3 (4.5-10.0)
[2024-09-01 03:53] LABS: Alanine Aminotransferase 35 U/L (6-50); Albumin Level 3.3 g/dL (3.5-5.1); Alkaline Phosphatase 79 U/L (38-126); Anion Gap 5 mmol/L (4-12); Aspartate Amino Transferase 49 U/L (17-59); Bilirubin,Total 1.2 mg/dL (0.2-1.3); Blood Urea Nitrogen 39 mg/dL (9-20); Calcium 8.4 mg/dL (8.4-10.2); Carbon Dioxide 34 mmol/L (22-30); Chloride 103 mmol/L (98-107); Estimated CRCL calculation 54 ml/min; Estimated Glomerular Filt Rate 55; Glucose 84 mg/dL (65-110); Magnesium 1.9 mg/dL (1.6-2.3); Phosphorus 3.2 mg/dL (2.5-4.5); Potassium 3.8 mmol/L (3.4-5.0); Sodium 142 mmol/L (137-145)
[2024-09-01 06:31] LABS: Glucose Point of Care 90 mg/dl (65-105)
[2024-09-01] MEDS: PANTOPRAZOLE SODIUM IV 40 MG VIAL IV PUSH (08:22)
[2024-09-01] MEDS: ENOXAPARIN 40 MG/0.4 ML SYRINGE SUB-Q (08:22)
[2024-09-01] MEDS: THIAMINE HCL 200 MG/2 ML VIAL 100 MG IV PUSH (08:22)
[2024-09-01] MEDS: FOLIC ACID 1 MG/0.2 ML INJ IV PUSH (08:23)
--- NOTE | 2024-09-01 08:54 | WPDINTPN ---
Progress Note: A&P Assessment and Plan (1) Encephalopathy: Code(s): G93.40 - Encephalopathy, unspecified Status: Acute Assessment and Plan: Patient developed agitation and confusion was in patient. Patient does have history of alcohol intake although I am not sure exact details. He was diagnosed with alcohol withdrawal and was given several doses Haldol, Zyprexa and Ativan on the floor and was then transferred to ICU for Precedex infusion. Head CT showed a frontal CVA which could be acute or subacute 08/31 patient was doing better and Precedex was weaned off weaned off. Librium does was lowered 09/01 Overnight became agitated and violent and was given additional dose of Ativan and Haldol and Precedex was restarted This morning he appears fairly sedated I will hold Precedex. And monitor (2) Stroke: Code(s): I63.9 - Cerebral infarction, unspecified Status: Acute Assessment and Plan: Patient had fall early this morning on 08/30/2024 -08/30: CT brain CT scan brain showed small right frontal lobe infarct, potentially acute, no acute fracture or intracranial hemorrhage -last well time is unknown Patient was evaluated by Neurology Continue aspirin statin MRI is ordered and pending as he is unable to complete the screening form for MRI and no family is available. Carotid Dopplers showed less than 50% stenosis of right and left internal carotid artery Echo Summary 1. There is severe left ventricular dysfunction. The left ventricular ejection fraction is visually estimated to be 20%. 2. Agitated saline study is negative for [id number] shunt. Patient was evaluated by speech therapy and a modified diet is ordered Will consult PT OT once patient is off Precedex infusion. (3) Alcohol withdrawal: Code(s): F10.939 - Alcohol use, unspecified with withdrawal, unspecified Status: Acute Assessment and Plan: -continue thiamine IV, will add folic acid IV (4) Nonischemic cardiomyopathy: Code(s): I42.8 - Other cardiomyopathies Status: Acute Assessment and Plan: Nonischemic Cardiomyopathy with CHF exacerbation and lower extremity edema -cardiology following the patient -holding Coreg, spironolactone, Entresto, aspirin, statin at this time as patient is unable to take p.o. -hold Lasix as patient has limited p.o. intake at this time 07/18/2023: Cardiac catheterization outside facility at [facility] Showed nonischemic cardiomyopathy, EF 30%, normal renal artery go mild CAD, elevated LVEDP at rest to 22 mmHg, moderate pulmonary hypertension 07/16/2024 echocardiogram Summary 1. Four-chamber dilated cardiomyopathy. 2. Severe left ventricular systolic function in a global fashion, EF 15-20% 3. No pericardial effusion. (5) CHF exacerbation: Qualifiers: Heart failure type: unspecified Qualified Code(s): I50.9 - Heart failure, unspecified Code(s): I50.9 - Heart failure, unspecified Status: Acute Assessment and Plan: As above (6) UTI (urinary tract infection): Code(s): N39.0 - Urinary tract infection, site not specified Status: Acute Assessment and Plan: UTI on admission, continue ceftriaxone -urine culture growing E coli, sensitive to Rocephin Plan DVT prophylaxis: Lovenox Stress ulcer prophylaxis: Protonix Nutrition: Patient was evaluated by speech therapy and modified diet ordered. Code Status: Patient is listed full code in the chart although in the past he has expressed his wishes to be DNR DNI. At this point patient is unable to make any decisions. Critical Care Time Spent: 30 minutes Due to a high probability of clinically significant, life threatening deterioration, the patient required my highest level of preparedness to intervene emergently and I personally spent this critical care time directly and personally managing the patient. This critical care time included obtaining a history; examining the patient; pulse oximetry; ordering and review of studies; arranging urgent treatment with development of a management plan; evaluation of patient's response to treatment; frequent reassessment; and discussions with other providers. It was exclusive of separately billable procedures and treating other patients and teaching time. Please see Assessment and Plan section and the rest of the note for further information on patient assessment and treatment This dictation may have been done utilizing a voice recognition system. Attempts have been made to correct errors. However, there may be uncorrected grammatical, spelling, and recognitions errors present. Subjective Date/time seen: 09/01/24 Overnight events reviewed patient was agitated yesterday evening and had to be given Ativan and then restarted on Precedex infusion. He wanted to leave against medical advice but the bedside provided evaluated the patient and felt the patient did not had insight into what he was doing. Patient also had to be restrained. Overnight he received dose of Haldol. This morning when I evaluated the patient he seems fairly drowsy and somnolent. He is on point to Precedex. On sternal rub patient said 'what' but did not open his eyes or follow commands Vital signs acceptable. Urine output is good. Review of Systems Review of Systems: ROS unobtainable: Yes unobtainable due to medical condition and unobtainable due to mental status Exam Narrative: General: Well-built gentleman, appears stated age, drowsy but arousable HEENT:? Pupils are pinpoint and sluggish, sclera is clear Neck:? Supple Respiratory:? Coarse breath sounds bilaterally, decreased air entry on the right side, no wheezing Cardiac:? S1-S2 normal regular rate and rhythm Abdomen:? Soft, nontender, nondistended, decreased bowel sounds Extremities:? Lower extremity edema bilaterally, palpable pedal pulses Neuro:? Patient is somnolent but arousable with sternal rub. Withdraws to pain in all extremities. Skin:? Warm and dry Objective Data Vital Signs Vital Signs: Vital Signs - 24 hr 08/31/24 10:00 08/31/24 10:00 08/31/24 10:00 Temperature Pulse Rate 50 L 50 L 50 L Pulse Rate [Bilateral Pedal (Dorsalis Pedis) Palpation] Respiratory Rate 19 19 Blood Pressure 115/81 Pulse Oximetry 100 Oxygen Delivery Oxygen Flow Rate 08/31/24 12:00 08/31/24 12:00 08/31/24 12:00 Temperature Pulse Rate 67 82 57 L Pulse Rate [Bilateral Pedal (Dorsalis Pedis) Palpation] Respiratory Rate 23 H 18 Blood Pressure 129/87 Pulse Oximetry Oxygen Delivery Oxygen Flow Rate 08/31/24 12:23 08/31/24 14:00 08/31/24 14:00 Temperature Pulse Rate 61 64 Pulse Rate [Bilateral Pedal (Dorsalis Pedis) Palpation] Respiratory Rate 23 H Blood Pressure Pulse Oximetry 100 92 Oxygen Delivery Oxygen Flow Rate 08/31/24 14:00 08/31/24 15:37 08/31/24 16:00 Temperature Pulse Rate 64 69 Pulse Rate [Bilateral Pedal (Dorsalis Pedis) Palpation] Respiratory Rate 23 H Blood Pressure 95/69 L Pulse Oximetry Oxygen Delivery Oxygen Flow Rate 08/31/24 16:00 08/31/24 18:00 08/31/24 18:00 Temperature 36.3 C L 36.9 C Pulse Rate 73 64 64 Pulse Rate [Bilateral Pedal (Dorsalis Pedis) Palpation] Respiratory Rate 23 H 25 H Blood Pressure Pulse Oximetry 96 Oxygen Delivery Oxygen Flow Rate 08/31/24 18:10 08/31/24 18:16 08/31/24 20:00 Temperature Pulse Rate Pulse Rate [Bilateral Pedal (Dorsalis Pedis) Palpation] Respiratory Rate Blood Pressure 90/58 L Pulse Oximetry 92 Oxygen Delivery Room Air Oxygen Flow Rate 08/31/24 20:00 08/31/24 20:00 08/31/24 20:46 Temperature 36.6 C Pulse Rate 80 88 85 Pulse Rate [Bilateral Pedal (Dorsalis Pedis) Palpation] Respiratory Rate 22 H 24 H Blood Pressure 112/72 Pulse Oximetry 96 Oxygen Delivery Oxygen Flow Rate 08/31/24 21:40 08/31/24 22:00 08/31/24 22:00 Temperature Pulse Rate 86 58 L 58 L Pulse Rate [Bilateral Pedal (Dorsalis Pedis) Palpation] Respiratory Rate 26 H 29 H Blood Pressure 91/55 L Pulse Oximetry 95 Oxygen Delivery Oxygen Flow Rate 08/31/24 22:00 08/31/24 22:10 08/31/24 23:10 Temperature Pulse Rate 58 L 77 51 L Pulse Rate [Bilateral Pedal (Dorsalis Pedis) Palpation] Respiratory Rate 29 H 27 H 26 H Blood Pressure Pulse Oximetry Oxygen Delivery Oxygen Flow Rate 08/31/24 23:30 08/31/24 23:45 08/31/24 23:57 Temperature Pulse Rate 47 L 45 L 48 L Pulse Rate [Bilateral Pedal (Dorsalis Pedis) Palpation] Respiratory Rate 21 H 22 H 24 H Blood Pressure Pulse Oximetry Oxygen Delivery Oxygen Flow Rate 09/01/24 00:00 09/01/24 00:00 09/01/24 00:00 Temperature 36.5 C Pulse Rate 49 L Pulse Rate [Bilateral Pedal (Dorsalis Pedis) Palpation] 47 L Respiratory Rate 22 H Blood Pressure 65/51 L Pulse Oximetry 91 98 Oxygen Delivery Nasal Cannula Oxygen Flow Rate 2 09/01/24 00:00 09/01/24 00:00 09/01/24 00:30 Temperature Pulse Rate 49 L 55 L 62 Pulse Rate [Bilateral Pedal (Dorsalis Pedis) Palpation] Respiratory Rate 22 H 15 Blood Pressure Pulse Oximetry Oxygen Delivery Oxygen Flow Rate 09/01/24 00:55 09/01/24 01:10 09/01/24 01:25 Temperature Pulse Rate 62 63 58 L Pulse Rate [Bilateral Pedal (Dorsalis Pedis) Palpation] Respiratory Rate 23 H 13 20 Blood Pressure 108/71 106/95 H 107/73 Pulse Oximetry 98 100 99 Oxygen Delivery Oxygen Flow Rate 09/01/24 01:40 09/01/24 02:00 09/01/24 02:00 Temperature Pulse Rate 59 L 59 L 58 L Pulse Rate [Bilateral Pedal (Dorsalis Pedis) Palpation] Respiratory Rate 21 H 22 H Blood Pressure 121/88 Pulse Oximetry 99 Oxygen Delivery Oxygen Flow Rate 09/01/24 02:00 09/01/24 02:40 09/01/24 02:42 Temperature Pulse Rate 58 L 71 53 L Pulse Rate [Bilateral Pedal (Dorsalis Pedis) Palpation] Respiratory Rate 22 H 16 21 H Blood Pressure 101/73 100/75 Pulse Oximetry 100 100 Oxygen Delivery Oxygen Flow Rate 09/01/24 02:42 09/01/24 03:40 09/01/24 04:00 Temperature Pulse Rate 53 L 87 Pulse Rate [Bilateral Pedal (Dorsalis Pedis) Palpation] 55 L Respiratory Rate 21 H 19 Blood Pressure 118/89 Pulse Oximetry 97 Oxygen Delivery Oxygen Flow Rate 09/01/24 04:00 09/01/24 04:00 09/01/24 04:00 Temperature 36.7 C Pulse Rate 63 63 Pulse Rate [Bilateral Pedal (Dorsalis Pedis) Palpation] Respiratory Rate 21 H 21 H Blood Pressure 118/89 Pulse Oximetry 96 99 Oxygen Delivery Nasal Cannula Oxygen Flow Rate 2 09/01/24 04:00 09/01/24 06:00 09/01/24 06:00 Temperature Pulse Rate 78 89 89 Pulse Rate [Bilateral Pedal (Dorsalis Pedis) Palpation] Respiratory Rate 26 H Blood Pressure 142/71 H Pulse Oximetry 97 Oxygen Delivery Oxygen Flow Rate 09/01/24 06:00 09/01/24 08:00 Temperature Pulse Rate 49 L Pulse Rate [Bilateral Pedal (Dorsalis Pedis) Palpation] 55 L Respiratory Rate 22 H Blood Pressure 116/97 H Pulse Oximetry Oxygen Delivery Oxygen Flow Rate Intake/Output Intake/Output: Intake & Output 08/29/24 08/30/24 08/31/24 09/01/24 23:59 23:59 23:59 23:59 Intake Total 1546 417.0 1771.8 626.3 Output Total 3420 1700 3000 700 Balance -1874 -1283.0 -1228.2 -73.7 Meds/Results Medications: Active Medications Generic Name Dose Route Start Last Admin Trade Name Freq PRN Reason Stop Dose Admin Acetaminophen 650 mg 08/28/24 09:45 Acetaminophen 325 Mg Tablet PO Q4H PRN Mild Pain (1-3) or Fever Albuterol 2 puff 08/28/24 13:31 Albuterol Sulfate (*Sp) Aerosol 1 Puff INHALATION Q4H PRN Shortness Of Breath Or Wheezing Aspirin 81 mg 08/29/24 09:00 08/31/24 09:36 Aspirin 81 Mg Enteric Tablet PO 81 mg QAM SOLEDAD Administration Atorvastatin Calcium 80 mg 08/30/24 21:00 08/31/24 20:38 Atorvastatin 40 Mg Tablet PO 80 mg HS SOLEDAD Administration Carvedilol 6.25 mg 08/29/24 21:00 08/30/24 20:26 Carvedilol 6.25 Mg Tablet PO Not Given Q12HR SOLEDAD Chlordiazepoxide HCl 25 mg 08/31/24 12:00 09/01/24 05:22 Chlordiazepoxide (*Crx) 25 Mg Capsule PO Not Given Q6HR SOLEDAD Enoxaparin Sodium 40 mg 08/29/24 09:00 09/01/24 08:22 Enoxaparin 40 Mg/0.4 Ml Syringe SUB-Q 40 mg DAILY SOLEDAD Administration Fluticasone/Umeclidinium/Vilanterol 1 puff 08/29/24 08:00 09/01/24 08:35 Fluticasone/Umeclidin/Vilanter 100-62.5-25 Mcg Ellipta INHALATION Not Given DAILYRT SOLEDAD Folic Acid 1 mg 08/31/24 09:00 09/01/24 08:23 Folic Acid 1 Mg/0.2 Ml Inj IV PUSH 1 mg QAM SOLEDAD Administration Ceftriaxone Sodium 1 gm in 50 mls @ 100 mls/hr 08/29/24 09:00 09/01/24 08:22 Rocephin 1 Gm/Ns 50 Ml IVPB 100 mls/hr Q24H SOLEDAD Administration Dexmedetomidine HCl 400 mcg in 100 mls @ 4.735 mls/hr 08/31/24 20:25 09/01/24 06:00 Precedex 400 Mcg/100 Ml IV CONT 0.2 mcg/kg/hr .Q21H8M SOLEDAD 4.74 mls/hr Titration Protocol 0.2 MCG/KG/HR Lorazepam 2 mg 08/29/24 18:20 08/30/24 07:05 Lorazepam Inj (*Crx) 2 Mg/Ml Vial IV PUSH 2 mg Q2H PRN Administration CIWA > 15 Pantoprazole Sodium 40 mg 08/31/24 09:00 09/01/24 08:22 Pantoprazole Sodium Iv 40 Mg Vial IV PUSH 40 mg QAM SOLEDAD Administration Sacubitril/Valsartan 1 tab 08/28/24 21:00 08/31/24 20:38 Sacubitril/Valsartan 24-26 Mg Tablet PO 1 tab Q12HR SOLEDAD Administration Spironolactone 12.5 mg 08/31/24 09:00 08/31/24 09:36 Spironolactone 12.5 Mg Tablet PO 12.5 mg QAM SOLEDAD Administration Thiamine HCl 100 mg 08/29/24 09:00 09/01/24 08:22 Thiamine Hcl 200 Mg/2 Ml Vial IV PUSH 100 mg DAILY SOLEDAD Administration Radiology Results: ITS Impressions Head CT 08/30/24 08:10 IMPRESSION: 1. Small right frontal lobe infarct, potentially acute. Findings were discussed with Jessica Bowers, the nurse caring for the patient, at 8:13 AM. 2. No fracture or acute intracranial hemorrhage. Thoracic/Lumbar Spine CT 08/30/24 13:53 Impression: Degenerative disease, without acute compression fracture within either the thoracic or lumbar spine, as detailed above. Carotid Doppler Study 08/30/24 14:29 IMPRESSION: 1. Less than 50% stenosis in the right internal carotid artery. 2. Less than 50% stenosis in the left internal carotid artery. The right vertebral artery was not visualized, as detailed above. Cervical Spine CT 08/30/24 15:06 IMPRESSION: No acute fracture or traumatic malalignment in the cervical spine. Esophageal wall thickening, consider referral for endoscopy. Aortic ectasia. Pulmonary edema. Chest X-Ray 08/31/24 07:04 IMPRESSION: 1. Cardiomegaly and pulmonary vascular congestion without puja pulmonary edema or other acute cardiopulmonary disease. Labs Labs: Laboratory Results - last 24 hr 08/31/24 08/31/24 08/31/24 11:14 11:40 11:44 WBC RBC Hgb Hct MCV MCH MCHC RDW Plt Count MPV Sodium Potassium Chloride Carbon Dioxide Anion Gap BUN Creatinine Estim Creat Clear Calc Estimated GFR Glucose POC Capillary Glucose 46 L* 41 L* 62 L Calcium Phosphorus Magnesium Total Bilirubin AST ALT Alkaline Phosphatase Total Protein Albumin 08/31/24 08/31/24 08/31/24 12:13 12:15 17:28 WBC RBC Hgb Hct MCV MCH MCHC RDW Plt Count MPV Sodium Potassium Chloride Carbon Dioxide Anion Gap BUN Creatinine Estim Creat Clear Calc Estimated GFR Glucose POC Capillary Glucose 22 L* 133 H 95 Calcium Phosphorus Magnesium Total Bilirubin AST ALT Alkaline Phosphatase Total Protein Albumin 09/01/24 09/01/24 09/01/24 00:18 03:38 06:29 WBC 6.4 RBC 4.90 Hgb 15.1 Hct 49.1 MCV 100.2 H MCH 30.8 MCHC 30.8 L RDW 14.5 Plt Count 252 MPV 9.5 Sodium 142 Potassium 3.8 Chloride 103 Carbon Dioxide 34 H Anion Gap 5 BUN 39 H Creatinine 1.31 H Estim Creat Clear Calc 54 Estimated GFR 55 L Glucose 84 POC Capillary Glucose 87 90 Calcium 8.4 Phosphorus 3.2 Magnesium 1.9 Total Bilirubin 1.2 AST 49 ALT 35 Alkaline Phosphatase 79 Total Protein 7.0 Albumin 3.3 L Quality VTE Prophylaxis VTE prophylaxis: pharmacologic ordered
--- NOTE | 2024-09-01 09:33 | PCSTNOTE ---
Patient managing current diet. Restless night. Holding morning meal till more alert.
--- NOTE | 2024-09-01 10:07 | PCSTNOTE ---
Please refer to the Bedside Swallow Evaluation completed 08/31/24 in the EMR. Please note, silent aspiration cannot be ruled out at bedside.
[2024-09-01] MEDS: ASPIRIN 81 MG ENTERIC TABLET PO (10:14)
--- NOTE | 2024-09-01 15:12 | PC.NURSE ---
Entering a note for Mitchell Amaral RN after conversation regarding Mr. Castellanos's fall on 08/29. According to Mitchell, the tech was in the room with the patient walking him to the bathroom. The patient fell and landed on his side but did not hit his head. Patient was sent down for a CT scan. When the patient returned the patient was being very combative. He was getting on all fours on his bed and then started hitting his head against the head board. This prompted a cut on his head which was addressed and a bandaid was placed. This all occured right at shift change.
[2024-09-01 17:53] LABS: Glucose Point of Care 104 mg/dl (65-105)
--- NOTE | 2024-09-01 19:03 | P.PNIM_ITS ---
Progress Note: A&P Assessment and Plan (1) Acute on chronic systolic heart failure: Code(s): I50.23 - Acute on chronic systolic (congestive) heart failure Status: Acute Assessment and Plan: Echo EF 15-20% Cardiology consulted IV Lasix daily Echocardiogram with no shunt. Recent echo with EF 15-20% Fluid restriction Entresto and carvedilol Cardiology following (2) UTI (urinary tract infection): Code(s): N39.0 - Urinary tract infection, site not specified Status: Acute Assessment and Plan: Rocephin Follow urine culture (3) Acute kidney injury: Code(s): N17.9 - Acute kidney failure, unspecified Status: Acute Assessment and Plan: Unknown if history of CKD Daily BMP Avoid nephrotoxic medications Creatinine improved to stable (4) Medical non-compliance: Code(s): Z91.199 - Patient's noncompliance with other medical treatment and regimen due to unspecified reason Status: Acute Assessment and Plan: Patient is homeless (5) Substance abuse: Code(s): F19.10 - Other psychoactive substance abuse, uncomplicated Status: Acute Assessment and Plan: [facility] protocol Banana bag Thiamine (6) Essential hypertension: Code(s): I10 - Essential (primary) hypertension Status: Acute Assessment and Plan: Continue Entresto (7) Transaminitis: Code(s): R74.01 - Elevation of levels of liver transaminase levels Status: Acute Assessment and Plan: CMP stable to improved (8) Alcohol withdrawal: Code(s): F10.939 - Alcohol use, unspecified with withdrawal, unspecified Status: Acute Assessment and Plan: Ongoing issue leading to agitation and confusion. Will not take any oral Librium Receiving Haldol/Zyprexa/Ativan With ongoing agitation and new findings of recent stroke possibly treated with Precedex drip Low-dose Librium started Continue on [facility] protocol (9) Stroke: Code(s): I63.9 - Cerebral infarction, unspecified Status: Acute Assessment and Plan: CT head this a.m. with findings of possible acute right frontal lobe infarct. No acute fracture intracranial hemorrhage noted Discussed with Neurology. Confusion ongoing since yesterday likely out of window. With borderline renal function does not suggest performing CTA head and neck for thrombectomy as he will be out of window for that as well. Neurology recommended MRI brain if possible along with carotid Doppler. Will continue aspirin along with statin Aspirin will be given rectally at this time. Monitor on telemetry Echo with EF 20% negative for [id number] shunt MRI could not be completed due to inability to complete the screening form Carotid Doppler less than 50% bilaterally PT OT to see Plan Patient was placed on Precedex drip. Off since yesterday however he is confused. patient want get out of the bed and nursing staff helping him sit in the chair, he is unable to provider any history or ROS, CT head t with findings of possible acute right frontal lobe infarct. Could not verify history to be able to do MRI. he is in ICU being closely monitored. Subjective Date/time seen: 09/01/24 19:03 Interval history: Patient was placed on Precedex drip. Off since yesterday however he is confused. patient want get out of the bed and nursing staff helping him sit in the chair, he is unable to provider any history or ROS, CT head t with findings of possible acute right frontal lobe infarct. Could not verify history to be able to do MRI. he is in ICU being closely monitored. Review of Systems Review of Systems: ROS unobtainable: Yes unobtainable due to mental status Objective Data Vital Signs Vital Signs: Vital Signs - 24 hr 08/31/24 20:00 08/31/24 20:00 08/31/24 20:00 Temperature 36.6 C Pulse Rate 80 88 Pulse Rate [Bilateral Pedal (Dorsalis Pedis) Palpation] Respiratory Rate 22 H Blood Pressure 112/72 Pulse Oximetry 96 Oxygen Delivery Room Air Oxygen Flow Rate Fraction of Inspired Oxygen 08/31/24 20:46 08/31/24 21:40 08/31/24 22:00 Temperature Pulse Rate 85 86 58 L Pulse Rate [Bilateral Pedal (Dorsalis Pedis) Palpation] Respiratory Rate 24 H 26 H Blood Pressure Pulse Oximetry Oxygen Delivery Oxygen Flow Rate Fraction of Inspired Oxygen 08/31/24 22:00 08/31/24 22:00 08/31/24 22:10 Temperature Pulse Rate 58 L 58 L 77 Pulse Rate [Bilateral Pedal (Dorsalis Pedis) Palpation] Respiratory Rate 29 H 29 H 27 H Blood Pressure 91/55 L Pulse Oximetry 95 Oxygen Delivery Oxygen Flow Rate Fraction of Inspired Oxygen 08/31/24 23:10 08/31/24 23:30 08/31/24 23:45 Temperature Pulse Rate 51 L 47 L 45 L Pulse Rate [Bilateral Pedal (Dorsalis Pedis) Palpation] Respiratory Rate 26 H 21 H 22 H Blood Pressure Pulse Oximetry Oxygen Delivery Oxygen Flow Rate Fraction of Inspired Oxygen 08/31/24 23:57 09/01/24 00:00 09/01/24 00:00 Temperature Pulse Rate 48 L Pulse Rate [Bilateral Pedal (Dorsalis Pedis) Palpation] 47 L Respiratory Rate 24 H Blood Pressure Pulse Oximetry 91 Oxygen Delivery Nasal Cannula Oxygen Flow Rate 2 Fraction of Inspired Oxygen 09/01/24 00:00 09/01/24 00:00 09/01/24 00:00 Temperature 36.5 C Pulse Rate 49 L 49 L 55 L Pulse Rate [Bilateral Pedal (Dorsalis Pedis) Palpation] Respiratory Rate 22 H 22 H Blood Pressure 65/51 L Pulse Oximetry 98 Oxygen Delivery Oxygen Flow Rate Fraction of Inspired Oxygen 09/01/24 00:30 09/01/24 00:55 09/01/24 01:10 Temperature Pulse Rate 62 62 63 Pulse Rate [Bilateral Pedal (Dorsalis Pedis) Palpation] Respiratory Rate 15 23 H 13 Blood Pressure 108/71 106/95 H Pulse Oximetry 98 100 Oxygen Delivery Oxygen Flow Rate Fraction of Inspired Oxygen 09/01/24 01:25 09/01/24 01:40 09/01/24 02:00 Temperature Pulse Rate 58 L 59 L 59 L Pulse Rate [Bilateral Pedal (Dorsalis Pedis) Palpation] Respiratory Rate 20 21 H 22 H Blood Pressure 107/73 121/88 Pulse Oximetry 99 99 Oxygen Delivery Oxygen Flow Rate Fraction of Inspired Oxygen 09/01/24 02:00 09/01/24 02:00 09/01/24 02:40 Temperature Pulse Rate 58 L 58 L 71 Pulse Rate [Bilateral Pedal (Dorsalis Pedis) Palpation] Respiratory Rate 22 H 16 Blood Pressure 101/73 100/75 Pulse Oximetry 100 100 Oxygen Delivery Oxygen Flow Rate Fraction of Inspired Oxygen 09/01/24 02:42 09/01/24 02:42 09/01/24 03:40 Temperature Pulse Rate 53 L 53 L 87 Pulse Rate [Bilateral Pedal (Dorsalis Pedis) Palpation] Respiratory Rate 21 H 21 H 19 Blood Pressure 118/89 Pulse Oximetry 97 Oxygen Delivery Oxygen Flow Rate Fraction of Inspired Oxygen 09/01/24 04:00 09/01/24 04:00 09/01/24 04:00 Temperature 36.7 C Pulse Rate 63 Pulse Rate [Bilateral Pedal (Dorsalis Pedis) Palpation] 55 L Respiratory Rate 21 H Blood Pressure 118/89 Pulse Oximetry 96 99 Oxygen Delivery Nasal Cannula Oxygen Flow Rate 2 Fraction of Inspired Oxygen 09/01/24 04:00 09/01/24 04:00 09/01/24 06:00 Temperature Pulse Rate 63 78 89 Pulse Rate [Bilateral Pedal (Dorsalis Pedis) Palpation] Respiratory Rate 21 H Blood Pressure Pulse Oximetry Oxygen Delivery Oxygen Flow Rate Fraction of Inspired Oxygen 09/01/24 06:00 09/01/24 06:00 09/01/24 07:30 Temperature Pulse Rate 89 49 L 56 L Pulse Rate [Bilateral Pedal (Dorsalis Pedis) Palpation] Respiratory Rate 26 H 22 H 21 H Blood Pressure 142/71 H Pulse Oximetry 97 Oxygen Delivery Oxygen Flow Rate Fraction of Inspired Oxygen 09/01/24 08:00 09/01/24 08:00 09/01/24 08:00 Temperature Pulse Rate 49 L 54 L Pulse Rate [Bilateral Pedal (Dorsalis Pedis) Palpation] 55 L Respiratory Rate 22 H Blood Pressure 116/97 H Pulse Oximetry 97 Oxygen Delivery Room Air Oxygen Flow Rate Fraction of Inspired Oxygen 09/01/24 08:00 09/01/24 09:30 09/01/24 10:00 Temperature Pulse Rate 54 L 82 82 Pulse Rate [Bilateral Pedal (Dorsalis Pedis) Palpation] Respiratory Rate 22 H 22 H Blood Pressure 116/97 H Pulse Oximetry 100 Oxygen Delivery Oxygen Flow Rate Fraction of Inspired Oxygen 09/01/24 10:00 09/01/24 12:00 09/01/24 12:00 Temperature Pulse Rate 82 82 Pulse Rate [Bilateral Pedal (Dorsalis Pedis) Palpation] 55 L Respiratory Rate 22 H 22 H Blood Pressure 135/99 H 135/99 H Pulse Oximetry 93 93 Oxygen Delivery Room Air Oxygen Flow Rate Fraction of Inspired Oxygen 09/01/24 12:00 09/01/24 12:00 09/01/24 12:00 Temperature Pulse Rate 58 L 58 L 81 Pulse Rate [Bilateral Pedal (Dorsalis Pedis) Palpation] Respiratory Rate 22 H 22 H Blood Pressure 99/81 L Pulse Oximetry 98 Oxygen Delivery Oxygen Flow Rate Fraction of Inspired Oxygen 09/01/24 14:00 09/01/24 14:00 09/01/24 14:00 Temperature Pulse Rate 93 86 69 Pulse Rate [Bilateral Pedal (Dorsalis Pedis) Palpation] Respiratory Rate 21 H 22 H Blood Pressure 141/100 H Pulse Oximetry 99 Oxygen Delivery Oxygen Flow Rate Fraction of Inspired Oxygen 09/01/24 17:30 09/01/24 18:00 09/01/24 18:23 Temperature 36.8 C Pulse Rate 90 82 61 Pulse Rate [Bilateral Pedal (Dorsalis Pedis) Palpation] Respiratory Rate 14 22 H Blood Pressure 114/67 110/84 Pulse Oximetry 96 Oxygen Delivery Oxygen Flow Rate Fraction of Inspired Oxygen Intake/Output Intake/Output: Intake & Output 08/29/24 08/30/24 08/31/24 09/01/24 23:59 23:59 23:59 23:59 Intake Total 1546 417.0 1771.8 1353.4 Output Total 3420 1700 3000 700 Balance -1874 -1283.0 -1228.2 653.4 Meds/Results Medications: Active Medications Generic Name Dose Route Start Last Admin Trade Name Freq PRN Reason Stop Dose Admin Acetaminophen 650 mg 08/28/24 09:45 Acetaminophen 325 Mg Tablet PO Q4H PRN Mild Pain (1-3) or Fever Albuterol 2 puff 08/28/24 13:31 Albuterol Sulfate (*Sp) Aerosol 1 Puff INHALATION Q4H PRN Shortness Of Breath Or Wheezing Aspirin 81 mg 08/29/24 09:00 09/01/24 10:14 Aspirin 81 Mg Enteric Tablet PO 81 mg QAM SOLEDAD Administration Atorvastatin Calcium 80 mg 08/30/24 21:00 08/31/24 20:38 Atorvastatin 40 Mg Tablet PO 80 mg HS SOLEDAD Administration Carvedilol 6.25 mg 08/29/24 21:00 08/30/24 20:26 Carvedilol 6.25 Mg Tablet PO Not Given Q12HR SOLEDAD Enoxaparin Sodium 40 mg 08/29/24 09:00 09/01/24 08:22 Enoxaparin 40 Mg/0.4 Ml Syringe SUB-Q 40 mg DAILY SOLEDAD Administration Fluticasone/Umeclidinium/Vilanterol 1 puff 08/29/24 08:00 09/01/24 08:35 Fluticasone/Umeclidin/Vilanter 100-62.5-25 Mcg Ellipta INHALATION Not Given DAILYRT SOLEDAD Folic Acid 1 mg 08/31/24 09:00 09/01/24 08:23 Folic Acid 1 Mg/0.2 Ml Inj IV PUSH 1 mg QAM SOLEDAD Administration Ceftriaxone Sodium 1 gm in 50 mls @ 100 mls/hr 08/29/24 09:00 09/01/24 08:22 Rocephin 1 Gm/Ns 50 Ml IVPB 09/03/24 09:29 100 mls/hr Q24H SOLEDAD Administration Dexmedetomidine HCl 400 mcg in 100 mls @ 4.735 mls/hr 08/31/24 20:25 09/01/24 14:00 Precedex 400 Mcg/100 Ml IV CONT 0 mcg/kg/hr .Q21H8M SOLEDAD 0 mls/hr Titration Protocol 0.2 MCG/KG/HR Lorazepam 2 mg 08/29/24 18:20 08/30/24 07:05 Lorazepam Inj (*Crx) 2 Mg/Ml Vial IV PUSH 2 mg Q2H PRN Administration CIWA > 15 Pantoprazole Sodium 40 mg 08/31/24 09:00 09/01/24 08:22 Pantoprazole Sodium Iv 40 Mg Vial IV PUSH 40 mg QAM SOLEDAD Administration Sacubitril/Valsartan 1 tab 08/28/24 21:00 08/31/24 20:38 Sacubitril/Valsartan 24-26 Mg Tablet PO 1 tab Q12HR SOLEDAD Administration Spironolactone 12.5 mg 08/31/24 09:00 08/31/24 09:36 Spironolactone 12.5 Mg Tablet PO 12.5 mg QAM SOLEDAD Administration Thiamine HCl 100 mg 08/29/24 09:00 09/01/24 08:22 Thiamine Hcl 200 Mg/2 Ml Vial IV PUSH 100 mg DAILY SOLEDAD Administration Radiology Results: ITS Impressions Head CT 08/30/24 08:10 IMPRESSION: 1. Small right frontal lobe infarct, potentially acute. Findings were discussed with Jessica Bowers, the nurse caring for the patient, at 8:13 AM. 2. No fracture or acute intracranial hemorrhage. Thoracic/Lumbar Spine CT 08/30/24 13:53 Impression: Degenerative disease, without acute compression fracture within either the thoracic or lumbar spine, as detailed above. Carotid Doppler Study 08/30/24 14:29 IMPRESSION: 1. Less than 50% stenosis in the right internal carotid artery. 2. Less than 50% stenosis in the left internal carotid artery. The right vertebral artery was not visualized, as detailed above. Cervical Spine CT 08/30/24 15:06 IMPRESSION: No acute fracture or traumatic malalignment in the cervical spine. Esophageal wall thickening, consider referral for endoscopy. Aortic ectasia. Pulmonary edema. Chest X-Ray 08/31/24 07:04 IMPRESSION: 1. Cardiomegaly and pulmonary vascular congestion without puja pulmonary edema or other acute cardiopulmonary disease. Labs Labs: Laboratory Results - last 24 hr 09/01/24 09/01/24 09/01/24 00:18 03:38 06:29 WBC 6.4 RBC 4.90 Hgb 15.1 Hct 49.1 MCV 100.2 H MCH 30.8 MCHC 30.8 L RDW 14.5 Plt Count 252 MPV 9.5 Sodium 142 Potassium 3.8 Chloride 103 Carbon Dioxide 34 H Anion Gap 5 BUN 39 H Creatinine 1.31 H Estim Creat Clear Calc 54 Estimated GFR 55 L Glucose 84 POC Capillary Glucose 87 90 Calcium 8.4 Phosphorus 3.2 Magnesium 1.9 Total Bilirubin 1.2 AST 49 ALT 35 Alkaline Phosphatase 79 Total Protein 7.0 Albumin 3.3 L 09/01/24 17:51 WBC RBC Hgb Hct MCV MCH MCHC RDW Plt Count MPV Sodium Potassium Chloride Carbon Dioxide Anion Gap BUN Creatinine Estim Creat Clear Calc Estimated GFR Glucose POC Capillary Glucose 104 Calcium Phosphorus Magnesium Total Bilirubin AST ALT Alkaline Phosphatase Total Protein Albumin Quality VTE Prophylaxis VTE prophylaxis: pharmacologic ordered
--- NOTE | 2024-09-01 20:22 | PM.EVENT ---
Event Note Event Note Event Note: 1929: I was called to bedside because patient was getting very agitated with nursing staff. He was insisting on leaving against medical advice because he has to pay for his storage locker before his items get confiscated for non-payment. Patient was not understanding that it was after closing time for the storage facility. With some difficulty, we were able to determine which facility it was and look up the phone number. I placed several phone calls and followed different prompts on the phone tree but never connected with a person--only an answering machine. We explained to patient that he could call in the morning if he would stay calm through the night and did not end up sedated or restrained. Patient was fumbling with his belongings and nearly dropped his $20 and $5 bill on the ground. He later struggled to replace these items into his wallet. Patient suddenly became very insistent on leaving to get a candy bar. He tried to get out of the chair but he was not steady. I offered to go get him a candy bar and bring it back to him. At this point he was pleased and stated he wanted to lay down in the bed. While staff was preparing to help him transfer back to the bed he suddenly tried to stand up before it was time to transfer. Patient's actions and desires are very impulsive though he did show more insight today about his limitations and he did not physically fight staff. His speech is slurred which makes understanding his wishes harder and he seems to get upset when we misunderstand something. Overall he was able to get into bed and did not try to harm staff. I was later informed he enjoyed his candy bar.
--- NOTE | 2024-09-01 21:00 | PC.NURSE ---
Patient does not want to follow fluid restriction orders. Patient states that there is nothing wrong with him. Patient is A&O x3, but impulsive and drowsy. He continues to try and get out of bed with an unsteady gait and rip off telemetry electrodes.
[2024-09-02] VITALS: BP 115/73; PULSE 87; PULSE 89; RESP 22; TEMP 36.8; O2SAT 96
[2024-09-02 00:52] LABS: Glucose Point of Care 112 mg/dl (65-105)
[2024-09-02 02:00] VITALS: BP 135/102; PULSE 88; RESP 24; O2SAT 95
[2024-09-02 03:47] LABS: Hematocrit 49.3 % (42.0-52.0); Hemoglobin 15.2 g/dL (14.0-18.0); Mean Corpuscular HGB Conc 30.8 g/dl (32-36); Mean Corpuscular Hemoglobin 30.6 pg (26-34); Mean Corpuscular Volume 99.2 fl (80-100); Mean Platelet Volume 9.5 fl (7.4-10.4); Platelet Count Result 267 k/mm3 (150-375); Red Blood Count 4.97 M/mm3 (4.6-6.20); Red Cell Distribution Width 14.6 % (11.5-14.5); White Blood Count 7.4 K/mm3 (4.5-10.0)
[2024-09-02 03:56] LABS: Alanine Aminotransferase 38 U/L (6-50); Albumin Level 3.4 g/dL (3.5-5.1); Alkaline Phosphatase 89 U/L (38-126); Anion Gap 5 mmol/L (4-12); Aspartate Amino Transferase 65 U/L (17-59); Blood Urea Nitrogen 31 mg/dL (9-20); Calcium 8.6 mg/dL (8.4-10.2); Carbon Dioxide 30 mmol/L (22-30); Chloride 106 mmol/L (98-107); Estimated CRCL calculation 61 ml/min; Estimated Glomerular Filt Rate > 60; Glucose 102 mg/dL (65-110); Magnesium 1.9 mg/dL (1.6-2.3); Phosphorus 3.1 mg/dL (2.5-4.5); Potassium 4.1 mmol/L (3.4-5.0); Sodium 141 mmol/L (137-145)
[2024-09-02 04:00] VITALS: BP 142/97; PULSE 89; PULSE 96; RESP 21; RESP 25; TEMP 36.9; O2SAT 95
[2024-09-02 06:00] VITALS: BP 126/105; PULSE 89; PULSE 95; RESP 22; RESP 23; O2SAT 95
--- NOTE | 2024-09-02 06:00 | PC.NURSE ---
Patient has stripped naked and snatched off his telemetry electrodes, he throws his urinal on the floor after constant complaints to be given the urinal to urinate. Patient continues to request water after being made aware of fluid restriction order. Patient is verbally aggressive and combative.
--- NOTE | 2024-09-02 08:03 | PC.NURSE ---
Addendum entered by Bennie Mitchell RN 09/02/24 08:37: Patient refused to be placed on tele monitor. Used room phone to call for a taxi cab. Pt signed ama papers and exited room Original Note: Patient states he wants to leave AMA. This RN educated patient on why hospital stay is imperitve due to cardiac concerns and neurological concerns. Pt states I don't care, I'll take my chances Pt is able to answer all orientation questions correctly.
--- NOTE | 2024-09-02 16:15 | PM.DS ---
DS: Admitting Diagnosis Discharge Date 09/02/24 Admitting Diagnosis Lower extremity swelling DS: Discharge Diagnosis Discharge Diagnosis (1) Substance abuse: Code(s): F19.10 - Other psychoactive substance abuse, uncomplicated Status: Acute Assessment and Plan: [facility] protocol Banana bag Thiamine (2) New onset of congestive heart failure: Code(s): I50.9 - Heart failure, unspecified Status: Acute (3) Systolic heart failure: Code(s): I50.20 - Unspecified systolic (congestive) heart failure Status: Acute (4) Acute exacerbation of CHF (congestive heart failure): Code(s): I50.9 - Heart failure, unspecified Status: Acute (5) CHF exacerbation: Qualifiers: Heart failure type: unspecified Qualified Code(s): I50.9 - Heart failure, unspecified Code(s): I50.9 - Heart failure, unspecified Status: Acute (6) Nonischemic cardiomyopathy: Code(s): I42.8 - Other cardiomyopathies Status: Acute (7) Acute on chronic systolic heart failure: Code(s): I50.23 - Acute on chronic systolic (congestive) heart failure Status: Acute Assessment and Plan: Echo EF 15-20% Cardiology consulted IV Lasix daily Echocardiogram with no shunt. Recent echo with EF 15-20% Fluid restriction Entresto and carvedilol Cardiology following (8) UTI (urinary tract infection): Code(s): N39.0 - Urinary tract infection, site not specified Status: Acute Assessment and Plan: Rocephin Follow urine culture (9) Acute kidney injury: Code(s): N17.9 - Acute kidney failure, unspecified Status: Acute Assessment and Plan: Unknown if history of CKD Daily BMP Avoid nephrotoxic medications Creatinine improved to stable (10) Medical non-compliance: Code(s): Z91.199 - Patient's noncompliance with other medical treatment and regimen due to unspecified reason Status: Acute Assessment and Plan: Patient is homeless (11) Essential hypertension: Code(s): I10 - Essential (primary) hypertension Status: Acute Assessment and Plan: Continue Entresto (12) Transaminitis: Code(s): R74.01 - Elevation of levels of liver transaminase levels Status: Acute Assessment and Plan: CMP stable to improved (13) Alcohol withdrawal: Code(s): F10.939 - Alcohol use, unspecified with withdrawal, unspecified Status: Acute Assessment and Plan: Ongoing issue leading to agitation and confusion. Will not take any oral Librium Receiving Haldol/Zyprexa/Ativan With ongoing agitation and new findings of recent stroke possibly treated with Precedex drip Low-dose Librium started Continue on CIWA protocol (14) Stroke: Code(s): I63.9 - Cerebral infarction, unspecified Status: Acute Assessment and Plan: CT head this a.m. with findings of possible acute right frontal lobe infarct. No acute fracture intracranial hemorrhage noted Discussed with Neurology. Confusion ongoing since yesterday likely out of window. With borderline renal function does not suggest performing CTA head and neck for thrombectomy as he will be out of window for that as well. Neurology recommended MRI brain if possible along with carotid Doppler. Will continue aspirin along with statin Aspirin will be given rectally at this time. Monitor on telemetry Echo with EF 20% negative for [id number] shunt MRI could not be completed due to inability to complete the screening form Carotid Doppler less than 50% bilaterally PT OT to see Plan Patient was placed on Precedex drip. Off since yesterday however he is confused. patient want get out of the bed and nursing staff helping him sit in the chair, he is unable to provider any history or ROS, CT head t with findings of possible acute right frontal lobe infarct. Could not verify history to be able to do MRI. he is in ICU being closely monitored. DS: Summary Hospital Course Hospital Course: Patient was placed on Precedex drip. Off since yesterday however he is confused. patient want get out of the bed and nursing staff helping him sit in the chair, he is unable to provider any history or ROS, CT head t with findings of possible acute right frontal lobe infarct. Could not verify history to be able to do MRI. he is in ICU being closely monitored. patient left AMA Time Spent with Patient Time attestation: Total time spent providing and/or coordinating discharge services: Exam Narrative: patient left AMA DS: Data Data Completed and Pending Labs on day of discharge: Labs from last 24 hours 09/02/24 09/02/24 09/01/24 03:42 00:02 17:51 WBC 7.4 RBC 4.97 Hgb 15.2 Hct 49.3 MCV 99.2 MCH 30.6 MCHC 30.8 L RDW 14.6 H Plt Count 267 MPV 9.5 Sodium 141 Potassium 4.1 Chloride 106 Carbon Dioxide 30 Anion Gap 5 BUN 31 H Creatinine 1.15 Estim Creat Clear Calc 61 Estimated GFR > 60 Glucose 102 POC Capillary Glucose 112 H 104 Calcium 8.6 Phosphorus 3.1 Magnesium 1.9 Total Bilirubin 1.0 AST 65 H ALT 38 Alkaline Phosphatase 89 Total Protein 7.0 Albumin 3.4 L Discharge Plan Discharge Consulting providers: Adria Martínez; Carmine Pickett; Zoraida Leung Patient Disposition: Left Against Medical Advice Patient Instructions: Heart Failure (GEN) Patient Language: Swedish Discharge Medications: No Action albuterol sulfate 90 mcg/actuation HFA aerosol inhaler 2 puff INHALATION Q4H PRN (Reason: Shortness Of Breath Or Wheezing) Qty: 6.7 0RF Breztri Aerosphere 160-9-4.8 mcg/actuation HFA aerosol inhaler 2 inh inhalation BID Qty: 5.9 5RF aspirin 81 mg Tablet 81 mg PO DAILY Entresto 24-26 mg Tablet 1 tab PO Q12HR Qty: 60 0RF furosemide 20 mg tablet 40 mg PO DAILY Qty: 30 1RF Date of admission: 08/28/24 12:17 Primary Care Provider: Lashae Marcano Admitting Provider: Britni Hare Attending physician on admission: Britni Hare Condition: Stable
== END 2024-09-02 08:28 | disposition left against medical advice (07) | DRG 291 ==
LOC: ANHED 09:45 → ANH3MEDSUR 11:52 → ANHICU 08-31 07:56 → ANH3MEDSUR 09-03 12:35 → ANHICU 09-03 12:35
PROVIDERS: Internal Medicine; Nurse Practitioner Gerontology; Student in an Organized Health Care Education/Training Program; Admitting Provider Internal Medicine; Emergency Provider Student in an Organized Health Care Education/Training Program; PCP Nurse Practitioner Family; Visit Provider Family Medicine
DX: I13.0 Hypertensive heart and chronic kidney disease with heart failure and stage 1 through stage 4 chronic kidney disease, or unspecified chronic kidney disease (principal); I50.23 Acute on chronic systolic (congestive) heart failure; I63.9 Cerebral infarction, unspecified; N17.9 Acute kidney failure, unspecified; N39.0 Urinary tract infection, site not specified; I47.29 Other ventricular tachycardia; F10.239 Alcohol dependence with withdrawal, unspecified; Z59.00 Homelessness unspecified; G93.40 Encephalopathy, unspecified; J44.9 Chronic obstructive pulmonary disease, unspecified; N18.9 Chronic kidney disease, unspecified; I42.8 Other cardiomyopathies; F19.10 Other psychoactive substance abuse, uncomplicated; W19.XXXA Unspecified fall, initial encounter; Z20.822 Contact with and (suspected) exposure to COVID-19; Z79.82 Long term (current) use of aspirin; Z91.199 Patient's noncompliance with other medical treatment and regimen due to unspecified reason
CPT/HCPCS: 36415; 70450; 71045; 71046; 72125; 72128; 72131; 80053; 81001; 82948; 83735; 83880; 84100; 84484; 85025; 85027; 85380; 85610; 87086; 87186; 87637; 92610; 93005; 93308; 93880; 94640; 96365; 96375; 99291; A9270; G0378; J0696; J1630; J1650; J1938; J2060; J2359; J2470; J3411; J3475; J7030

== ENCOUNTER 2024-09-23 18:46 | Emergency (ER) | payer MEDICARE, MEDICAID, SELFPAY ==
--- NOTE | ~2024-09-23 | XR_ITS ---
XR chest 2V Ordering provider: Vish Damon MD History: 69 years Male with . SOA; LOWER LEGS SWELLING . Comparison: August 31, 2024 FINDINGS: MEDIASTINUM: The cardiac silhouette is grossly enlarged. LUNGS: No infiltrates, effusions or pneumothorax. OTHER: No free air under the diaphragm. IMPRESSION: No acute cardiopulmonary pathology. Reviewed, dictated and finalized at location A.
--- OUTSIDE RECORDS SUMMARY | 2024-09-23 18:49 | XMS_ITS | Clinical Summary ---
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 Male hypogonadism 01/05/2020 Vitamin D deficiency 06/28/2019 [...] Encounters Date Type Department Care Team Description 09/07/2024 Orders Only [facility] Cardiology [address] [place] [address] Jill Lundberg NP 09/02/2024 Orders Only [facility] Cardiology [address] [place] [address] Adria Martínez MD 08/11/2024 1:05 AM CDT - 08/13/2024 8:00 PM CDT Hospital Encounter [facility] [address] [place] [address] Kiel Oliveira MD Heath, MD Vashti Pierson, MD Kosta Uriarte, MD Agustin Vargas, MD Heath Lane, Debbi Chand MD Acute on chronic congestive heart failure, unspecified heart failure type (HCC) (Primary Dx); NITA (acute kidney injury) Discharge Disposition: Left Against Medical Advice 07/21/2024 Orders Only [facility] Cardiology [address] [place] [address] Jill Lundberg NP 07/16/2024 Orders Only [facility] Health Information Management [address] [place] [address] Jill Lundberg NP from Last 3 Months Immunizations Immunization Administration [...] Tobacco: Never Tobacco Cessation:Counseling Given: Not Answered [facility] Utilities Answer Date Recorded In the past 12 months has [employer], gas, oil, or water company threatened to [...] often do you attend chur ch or orthodox services? Never 08/12/2024 Do you belong to [...] any time in the past 12 m [facility], were you homeless or living in a penitentiary (including now)? Yes 08/13/2024 Personal Safety Answer Date Recorded Have you ever been in or are you currently in a harmful physical or emotional relationship or is someone making you feel afraid or unsafe? 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 Gender Identity Not on file Sexual Orientation [...] Associated Diagnosis Comments CARDIOLOGY DOCUMENT SCAN Routine 08/31/2024 10:54 AM CDT CARDIOLOGY DOCUMENT SCAN Routine 08/30/2024 11:05 AM CDT CARDIOLOGY DOCUMENT SCAN Routine 08/29/2024 10:52 AM CDT CARDIOLOGY DOCUMENT SCAN Routine 08/28/2024 10:36 AM CDT EGFR Routine 08/13/2024 4:30 AM CDT BASIC [...] Health Maintenance Results * Cardiology Document Scan (08/31/2024 10:54 AM CDT) Anatomical Region Laterality Modality Other Jill Lundberg NP CV CARDIAC SERVICES PROCEDUR ES Final Result * Cardiology Document Scan (08/30/2024 11:05 AM CDT) Anatomical Region Laterality Modality Other Jill Lundberg NP CV CARDIAC SERVICES PROCEDUR ES Final Result * Cardiology Document Scan (08/29/2024 10:52 AM CDT) Anatomical Region Laterality Modality Other Adria Martínez MD CV CARDIAC SERVICES PROCE DURES Final Result * Cardiology Document Scan (08/28/2024 10:36 AM CDT) Anatomical Region Laterality Modality Other Adria Martínez MD CV CARDIAC SERVICES PROCE DURES Final Result * (ABNORMAL) eGFR (08/13/2024 4:30 AM CDT) [...] LAB BLOOD ORDERABLES Final R esult [facility] [place] [address] * (ABNORMAL) Basic metabolic panel (08/13/2024 4:30 AM CDT) Pathologist [facility] Sodium 140 135 - 145 mmol/L Potassium, pl 3.7 3.3 - 4.9 mmol/L [facility] Chloride 101 97 - 110 mmol/L [facility] CO2 33(H) 22 - 32 mmol/L [facility] Anion gap 6 2 - 15 mmol/L [facility] BUN 35(H) 6 - 25 mg/dL [facility] Creatinine 1.35(H) 0.80 - 1.30 mg/dL [facility] Glucose 125 70 - 199 mg/dL [facility] Comment: Interpretive Data Fasting glucose >/= 126 [...] Calcium 9.2 8.5 - 10.3 mg/dL [facility] Blood 08/13/2024 4:30 AM CDT 08/13/2024 5:41 AM CDT us Debbi Joe MD LAB BLOOD ORDERABLES Final R esult [facility] [place] [address] * TRANSTHORACIC ECHO (TTE) COMPLETE W DOPPLER/CF W CONTRAST (08/12/2024 11:33 AM CDT) EF Mod BP 27 % CONS SCIMAGE Anatomical Region Laterality Modality Ultrasound 08/12/2024 10:2 4 AM CDT Narrative 08/12/2024 5:51 PM CDT [facility] [place] [address] Transthoracic Echocardiographic Report Patient Name: CELINA PAK W : 1955 (69y 2m) Gender: M Study Date: 08/12/2024 10:24:42 AM Ht(Inch): 72 Wt(Lb): 212.96 BSA: 2.22 District Adviser: Silva Angela Location: [id number] Order Provider: LAIYA VELEZ Heart Rate: 90 BMI: 28.88 BP: [...] Note Celina Rinaldi MD PhD - 08/12/2024 [facility] [place] [address] Transthoracic Echocardiographic Report Patient Name: CELINA PAK W : 1955 (69y 2m) Gender: M Study Date: 08/12/2024 10:24:42 AM Ht(Inch): 72 Wt(Lb): 212.96 BSA: 2.22 District Adviser: Silva Angela Location: [id number] Order Provider:ALIYA VELEZ Heart Rate: 90 BMI: [...] LA Length 4C 6.60 cm MV Decel Glwq616.12 msec [ 104.00 - 258.00 ] LA [...] mmHg RA Volume Index 50.89 ml/m2 MR CGV697.1 cm RVOT Diam 4.90 cm TR Peak Vel2.9 m/s [ 1.0 - 2.8 ] AoR Diam 2D 4.09 cm [ 3.10 - 3.70 ] TR Peak PG33.6 mmHg Ao Root Index 1.84 cm/m2 [ 1.00 - 2.00 ] Asc Ao Diam 2D3.67 cm Asc Ao Index1.65 cm/m2 Electronically Signed By: Celina Rinaldi MD 08/12/2024 5:51:27 PM CDT [facility] Jaime Velez MD CV ECHO PROCEDURES Antonette l Result * Lactate (08/12/2024 2:57 AM CDT) Lactate 0.8 0.7 - 2.0 mmol/L Blood 08/12/2024 2:57 AM CDT 08/12/2024 3:18 AM CDT Aliya Velez MD LAB BLOOD ORDERABLES Fi nal Result Performing Organization Address [facility] de Phone Number [facility] [place] [address] * (ABNORMAL) eGFR (08/11/2024 9:17 PM CDT) [...] ORDERABLES Fi nal Result Performing Organization Address [facility] Co de Phone Number [facility] [place] [address] * Magnesium (08/11/2024 9:17 PM CDT) Magnesium 1.9 1.4 - 2.5 mg/dL Blood 08/11/2024 9:17 PM CDT 08/11/2024 9:51 PM CDT Aliya Milton Velez MD LAB BLOOD ORDERABLES nal Result [facility] Department [place] [address] * (ABNORMAL) Basic metabolic panel (08/11/2024 9:17 PM CDT) Pathologist [facility] Sodium 141 135 - 145 mmol/L Potassium, pl 4.1 3.3 - 4.9 mmol/L [facility] Comment:Hemolyzed; Potassium value may be falsely elevated by as much as 0.3-0.5 mmol/L. Suggest redraw and reanalysis. Chloride 97 97 - 110 mmol/L [facility] CO2 33(H) 22 - 32 mmol/L [facility] Anion gap 11 2 - 15 mmol/L [facility] BUN 34(H) 6 - 25 mg/dL [facility] Creatinine 1.60(H) 0.80 - 1.30 mg/dL [facility] Glucose 81 70 - 199 mg/dL [facility] Comment: Interpretive Data Fasting glucose >/= 126 [...] Calcium 9.3 8.5 - 10.3 mg/dL [facility] Blood 08/11/2024 9:17 PM CDT 08/11/2024 9:51 PM CDT Aliya Rose Jaime Velez MD LAB BLOOD ORDERABLES Fi nal Result [facility] Department [place] [address] * (ABNORMAL) Drugs of Abuse Screen, Urine [...] Barbiturates, ur Not Detected CutOff 200ng/mL [facility] Comment: Interpretive Data - Barbiturates: Samples containing greater than 200 ng/mL secobarbital or other cross-reacting barbiturate compounds are reported as positive. False positive and false negative results are possible. Confirmatory testing required for definitive results. Current Interpretive Data was last reviewed 2022. Benzodiazepines, ur Not Detected CutOff 100ng/mL [facility] Comment: Interpretive Data - Benzodiazepines: Samples containing greater than 100 ng/mL nordiazepam or other cross-reacting compounds are reported as positive. False positive and false negative results are possible. Confirmatory testing required for definitive results. Current Interpretive Data was last reviewed 2022. Cannabinoids, ur Not Detected CutOff 50 ng/mL [facility] Comment: Interpretive Data - Cannabinoids: Samples containing greater than 50 ng/mL delta-9 THC -COOH or other cross- reacting compounds are reported as positive. False positive and false negative results are possible. Confirmatory testing required for definitive results. Current Interpretive Data was last reviewed 2022. Cocaine, ur Not Detected CutOff 150ng/mL [facility] Comment: Interpretive Data - Cocaine: Samples containing greater than 150 ng/mL benzoylecgonine or other cross- reacting compounds are reported as positive. False positive and false negative results are possible. Confirmatory testing required for definitive results. Current Interpretive Data was last reviewed 2022. Fentanyl, Ur Not Detected CutOff 5 ng/mL [facility] Comment: Interpretive Data - Fentanyl: Samples containing greater than 5 ng/mL norfentanyl, fentanyl, or other cross-reacting fentanyl compounds are reported as positive. False positive and false negative results are possible. Confirmatory testing required for definitive results. Current Interpretive Data was last reviewed 2023. Methadone, ur Not Detected CutOff 300ng/mL [facility] Comment: Interpretive Data - Methadone: Samples containing greater than 300 ng/mL d,l-methadone or other cross-reacting compounds are reported as positive. False positive and false negative results are possible. Confirmatory testing required for definitive results. Current Interpretive Data was last reviewed 2022. Opiates, ur Not Detected CutOff 300ng/mL [facility] Comment: Interpretive Data - Opiates: Samples containing greater than 300 ng/mL morphine or other cross-reacting compounds are reported as positive. False positive and false negative results are possible. Confirmatory testing required for definitive results. Current Interpretive Data was last reviewed 2022. Oxycodone, ur Not Detected CutOff 100ng/mL [facility] Comment: Interpretive Data - Oxycodone: Samples containing greater than 100 ng/mL oxycodone or other cross-reacting compounds are reported as positive. False positive and false negative results are possible. Confirmatory testing required for definitive results. Current Interpretive Data was last reviewed 2022. Phencyclidine, ur Not Detected CutOff 25 ng/mL [facility] Comment: Interpretive Data - Phencyclidine: Samples containing greater than 25 ng/mL phencyclidine or other cross-reacting compounds are reported as positive. False positive and false negative results are possible. Confirmatory testing required for definitive results. Current Interpretive Data was last reviewed 2022. Urine Creatinine 9 mg/dL [facility] Comment: Interpretive Data Urine Creatinine: < 10 mg/dL is extremely dilute = or > 10 but < 20 mg/dL is dilute = or > 20 mg/dL is normal Current Interpretive Data was last revised on 2017. Urine 08/11/2024 9:43 AM CDT 08/11/2024 10:49 AM CDT Narrative [facility] - 08/11/2024 11:54 AM CDT Drug of Abuse screening is performed by immunoassay for medical purposes only. This is not to be used for Pain Management purposes. If Detected, confirmation testing will be performed for Amphetamines, Cocaine, Fentanyl, Methadone, Opiates, Oxycodone or Phencyclidine. Lucie Tai NP LAB URINE ORDERABLES Final Result Performing Organization Address City/[facility]/ZIP Co de Phone Number [facility] Department [place] [address] * (ABNORMAL) Amphetamine Confirmation, Urine (08/11/2024 9:43 AM CDT) Pathologist [facility] Amphetamine Conf, Ur Does Not Confirm CutOff 150ng/mL Methamphetamine Conf, Ur Confirmed Positive(A) CutOff 150ng/mL [facility] MDA Conf, Ur Does Not Confirm CutOff 150ng/mL [facility] MDMA Conf, Ur Does Not Confirm CutOff 50 ng/mL [facility] MDEA Conf, Ur Does Not Confirm CutOff 150ng/mL [facility] MBDB Conf, Ur Does Not Confirm CutOff 150ng/mL [facility] Comment: Interpretive Data This test detects the presence or absence of drug compounds using LC Tandem mass spectrometry. While this test is highly specific, false positive and false negative results may occur in very rare circumstances. Contact the laboratory for consultation, if needed. Performance characteristics were determined by the [facility] in a manner consistent with CLIA requirement and has not been cleared or approved by the U.S. Food and Drug Administration. Current interpretive data was last revised on 2020. Urine 08/11/2024 9:43 AM CDT 08/11/2024 11:01 AM CDT Lucie Tai NP LAB URINE ORDERABLES Final Result Performing Organization Address City/[facility]/ZIP Co de Phone Number [facility] Department [place] [address] * Troponin I high-sensitivity 2-hour (08/11/2024 3:24 AM CDT) Trop I hs 25 <=35 ng/L Comment: Interpretive Data For further hscTnI resources including the diagnostic algorithm and an aid in interpretation, copy and paste this link: https://bjhlab.testcatalog.org/show/hsTrop-1 Current Interpretive Data last revised 2019. Trop I hs delta See Comment ng/L [facility] Comment:Inappropriate collec tion time to report a delta. Trop I hs pct delta See Comment % [facility] Comment:Inappropriate collec tion time to report a delta. Trop I hs interp See Comment [facility] Comment:Inappropriate collec tion time to report a delta. Blood 08/11/2024 3:24 AM CDT 08/11/2024 3:36 AM CDT us Melly Moctezuma MD LAB BLOOD ORDERABLES Final Result [facility] Department [place] [address] * (ABNORMAL) Pro B-type natriuretic peptide (08/11/2024 1:27 AM CDT) Pathologist [facility] NT-proBNP 7,728(H) <=300 pg/mL Comment: Interpretive Comments: [...] LAB BLOOD ORDERABLES Final Re sult [facility] Department [place] [address] * XR Chest PA Lateral 2 Views [...] 1 AM CDT 08/11/2024 12:28 AM CDT us Kiel Oliveira MD LAB BLOOD ORDERABLES Final Re sult [facility] [place] [address] * (ABNORMAL) eGFR (08/11/2024 12:11 AM CDT) [...] Inclusion of Race in Diagnosing Kidney Disease, CRYSTALN 2020). The CKD-EPI equation should not be used for patients with unstable renal function and has not been validated in children and those over 70. Current interpretive data was last reviewed 2021. Blood 08/11/2024 12:1 1 AM CDT 08/11/2024 12:26 AM CDT Kiel Oliveira MD LAB BLOOD ORDERABLES Final Re sult [facility] [place] [address] * Differential, auto (08/11/2024 12:11 AM CDT) Neutrophil abs 4.47 1.50 - 6.50 K/cumm Imm gran abs 0.02 0.00 - 0.10 K/cumm [facility] Lymphocyte abs 1.79 0.80 - 3.30 K/cumm [facility] Monocyte abs 0.50 0.20 - 0.80 K/cumm [facility] Eosinophil abs 0.24 0.00 - 0.50 K/cumm [facility] Basophil abs 0.07 0.00 - 0.10 K/cumm [facility] Neutrophil pct 63.0 % [facility] Comment: Interpretive Data Percent cell count reference ranges are not reported, since discordance with absolute values may lead to misinterpretation of CBC data. Current Interpretive Data was last revised on 2017. Imm gran pct 0.3 % [facility] Comment: Interpretive Data Percent cell count reference ranges are not reported, since discordance with absolute values may lead to misinterpretation of CBC data. Current Interpretive Data was last revised on 2017. Lymphocyte pct 25.2 % [facility] Comment: Interpretive Data Percent cell count reference ranges are not reported, since discordance with absolute values may lead to misinterpretation of CBC data. Current Interpretive Data was last revised on 2017. Monocyte pct 7.1 % [facility] Comment: Interpretive Data Percent cell count reference ranges are not reported, since discordance with absolute values may lead to misinterpretation of CBC data. Current Interpretive Data was last revised on 2017. Eosinophil pct 3.4 % [facility] Comment: Interpretive Data Percent cell count reference ranges are not reported, since discordance with absolute values may lead to misinterpretation of CBC data. Current Interpretive Data was last revised on 2017. Basophil pct 1.0 % [facility] Comment: Interpretive Data Percent cell count reference ranges are not reported, since discordance with absolute values may lead to misinterpretation of CBC data. Current Interpretive Data was last revised on 2017. Blood 08/11/2024 12:1 1 AM CDT 08/11/2024 12:27 AM CDT us Kiel Oliveira MD LAB BLOOD ORDERABLES Final Re sult [facility] Department [place] [address] * (ABNORMAL) CBC with auto differential (08/11/2024 12:11 AM CDT) WBC 7.09 3.80 - 9.90 K/cumm Hgb 13.2 13.0 - 17.5 g/dL [facility] Hct 41.2 38.9 - 50.3 % [facility] Plt 192 150 - 400 K/cumm [facility] MPV 10.0 9.1 - 12.3 fL [facility] RBC 4.20(L) 4.30 - 5.80 M/cumm [facility] MCV 98.1(H) 81.3 - 96.4 fL [facility] MCH 31.4 27.1 - 33.3 pg [facility] MCHC 32.0(L) 32.3 - 35.7 g/dL [facility] RDW CV 14.7 11.1 - 14.9 % [facility] RDW SD 53.1(H) 35.7 - 48.1 fL [facility] NRBC abs 0.00 0.00 - 0.01 K/cumm [facility] Blood 08/11/2024 12:1 1 AM CDT 08/11/2024 12:27 AM CDT us Kiel Oliveira MD LAB BLOOD ORDERABLES Final Re sult [facility] Department [place] [address] * (ABNORMAL) Comprehensive metabolic panel (08/11/2024 12:11 AM CDT) Sodium 141 135 - 145 mmol/L Potassium, pl 4.8 3.3 - 4.9 mmol/L [facility] Chloride 103 97 - 110 mmol/L [facility] CO2 32 22 - 32 mmol/L [facility] Anion gap 6 2 - 15 mmol/L [facility] BUN 32(H) 6 - 25 mg/dL [facility] Creatinine 1.44(H) 0.80 - 1.30 mg/dL [facility] Glucose 103 70 - 199 mg/dL [facility] Comment: Interpretive Data Fasting glucose >/= 126 [...] 2022. Calcium 9.5 8.5 - 10.3 mg/dL [facility] Bilirubin, total 0.8 0.1 - 1.2 mg/dL [facility] Protein, pl 7.3 6.5 - 8.5 g/dL [facility] Albumin 3.8 3.5 - 5.0 g/dL [facility] Alk phos 95 40 - 130 Units/L [facility] ALT 56(H) 7 - 55 Units/L [facility] AST 49 10 - 50 Units/L [facility] Blood 08/11/2024 12:1 1 AM CDT 08/11/2024 12:26 AM CDT us Kiel Oliveira MD LAB BLOOD ORDERABLES Final Re sult [facility] [place] [address] * ECG 12-LEAD (08/10/2024 11:56 PM CDT) Narrative [facility] - 08/10/2024 11:56 PM CDT Heron Cruz [...] Kiel Oliveira MD ECG ORDERABLES Final Result [facility] * Cardiology Document Scan (07/17/2024 8:52 AM [...] data last revised 21. Testing performed by: [facility], [address] [place] [address]., [id number] Blood 12/12/2023 10:0 0 AM CDT 12/12/2023 12:16 PM CDT us Lisa JACINTO LAB BLOOD ORDERABLES Fin al Result Performing Organization Address City/State/ZIP Co md Phone Number [facility] [address] [facility] [place] [address] from Last 3 Months or Most Recently Relevant to Health Maintenance Insurance [facility] OTHER Address: [address] [place] [address] MEDICARE IDWI MEDICARE [facility] Address: [address] [address] [place] [address] IDPA Advance Directives For more information, please contact: [phone] * Full Code (Latest Code Status on File) Date Activated Date Inactivated Comments 08/11/2024 5:02 PM 08/14/2024 12:27 AM * Full Code Date Activated Date Inactivated Comments 11/03/2023 4:46 PM 11/06/2023 6:41 PM * Full Code Date Activated Date Inactivated Comments 07/18/2023 11:06 AM 07/19/2023 7:36 PM Care Teams Per Diem Rn Relationship Specialty Start Date End Date Lashae Marcano NP [address] [place] [address] PCP - General Family Practice 08/28/24 [place] [id number] [address] Consulting Physician Cardiovascular Disease 07/19/23
--- OUTSIDE RECORDS SUMMARY | 2024-09-23 18:49 | XMS_ITS | Encounter Summary ---
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
--- OUTSIDE RECORDS SUMMARY | 2024-09-23 18:49 | XMS_ITS | Referral Summary ---
Author Organization [facility] at the [facility] Office Center Address [address] [place] [address] Care Team Providers Care Raw Products Director Name Role Phone Zion Gaspar MD Unavailable Lashae Marcano NP Primary Care Provider [phone] Encounters Date Type Department Care Team Description 09/07/[address] [facility] Medical [facility] Cardiology [address] [place] [phone] Jill Lundberg NP 09/02/2024 Orders Only [facility] Cardiology [address] [place] [phone] Adria Martínez MD 08/11/2024 1:05 AM CDT - 08/13/2024 8:00 PM CDT Hospital Encounter [address] [address] Kiel Oliveira MD Heath, MD Vashti Pierson, MD Kosta Uriarte Zalak Vipul, MD Choi, MD Heath Lane, Debbi Chand MD Acute on chronic congestive heart failure, unspecified heart failure type (HCC) (Primary Dx); NITA (acute kidney injury) Discharge Disposition: Left Against Medical Advice 07/21/[address] [facility] Medical Group Cardiology [address] [place] [phone] Jill Lundberg, ISAMAR 07/16/2024 Orders Only [facility] Information Management [address] [place] [address] Jill Lundberg, ISAMAR from Last 3 Months Allergies Active Allergy [...] to cardiology Coronary artery disease invo lving [place] coronary artery of [place] heart without angina pectoris 12/12/2023 Assessment & [...] refilled today Patient needs referral to new director of planning. Male hypogonadism 01/05/2020 Vitamin D deficiency 06/28/2019 [...] Tobacco: Never Tobacco Cessation:Counseling Given: Not Answered [facility] Utilities Answer Date Recorded In the past 12 months has [employer], [employer], oil, or water whodoyou threatened to shut off services in your [...] often do you attend chur ch or jew services? Never 08/12/2024 Do you belong to any clubs o r organizations such as hindu groups, unions, fraternal or athletic groups, or [...] any time in the past 12 m [facility], were you homeless or living in a mcfp (including now)? Yes 08/13/2024 Personal Safety Answer Date Recorded Have you ever been in or are you currently in a harmful physical or emotional relationship or is someone making you feel afraid or unsafe? 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 Department [place] [address] * (ABNORMAL) Basic metabolic panel (08/13/2024 4:30 AM CDT) Pathologist [facility] Sodium 140 135 - 145 mmol/L Potassium, pl 3.7 3.3 - 4.9 mmol/L [facility] Chloride 101 97 - 110 mmol/L [facility] CO2 33(H) 22 - 32 mmol/L [facility] Anion gap 6 2 - 15 mmol/L [facility] BUN 35(H) 6 - 25 mg/dL [facility] Creatinine 1.35(H) 0.80 - 1.30 mg/dL [facility] Glucose 125 70 - 199 mg/dL [facility] Comment: Interpretive Data Fasting glucose >/= 126 [...] 2022. Calcium 9.2 8.5 - 10.3 mg/dL [facility] Blood 08/13/2024 4:30 AM CDT 08/13/2024 5:41 AM CDT us Debbi Joe MD LAB BLOOD ORDERABLES Final R esult [facility] Department [place] [address] * TRANSTHORACIC ECHO (TTE) COMPLETE W DOPPLER/CF W CONTRAST (08/12/2024 11:33 AM CDT) [facility] EF Mod BP 27 % CONS SCIMAGE Anatomical Region Laterality Modality Ultrasound 08/12/2024 10:2 4 AM CDT Narrative 08/12/2024 5:[address] PM [address] [facility] [place] [address] Transthoracic Echocardiographic Report Patient Name: CELINA PAK W : 1955 (69y 2m) Gender: M Study Date: 08/12/2024 10:24:42 AM Ht(Inch): 72 Wt(Lb): 212.96 BSA: 2.22 Balance Wheel Hand Filer: Silva Angela Location: [id number] Order Provider: ALIYA VELEZ Heart Rate: 90 [...] Note Celina Rinaldi MD PhD - 08/12/[address] [facility] Cardiac [place] [address] Transthoracic Echocardiographic Report Patient Name: CELINA PAK W : 1955 (69y 2m) Gender: M Study Date: 08/12/2024 10:24:42 AM Ht(Inch): 72 Wt(Lb): 212.96 BSA: 2.22 Balance Wheel Hand Filer: Silva Angela Location: [id number] Order Provider:ALIYA VELEZ Heart Rate: 90 BMI: [...] LA Length 4C 6.60 cm MV Decel Nvts060.12 msec [ 104.00 - 258.00 ] LA [...] mmHg RA Volume Index 50.89 ml/m2 MR XZV386.1 cm RVOT Diam 4.90 cm TR Peak [...] MD LAB BLOOD ORDERABLES Fi nal Result [facility] Department [place] [address] * (ABNORMAL) eGFR (08/11/2024 9:17 PM CDT) [...] Fi nal Result Performing Organization Address City/[facility]/ZIP Co de Phone Number [facility] [place] [address] * Magnesium (08/11/2024 9:17 PM CDT) Pathologist [facility] Magnesium 1.9 1.4 - 2.5 mg/dL Blood 08/11/2024 9:17 PM CDT 08/11/2024 9:51 PM CDT Aliya Velez MD LAB BLOOD ORDERABLES Fi nal Result Performing Organization Address [place]/[facility] de Phone Number [facility] [place] [address] * (ABNORMAL) Basic metabolic panel (08/11/2024 9:17 PM CDT) Pathologist [facility] Sodium 141 135 - 145 mmol/L Potassium, pl 4.1 3.3 - 4.9 mmol/L [facility] Comment:Hemolyzed; Potassium value may be falsely elevated by as much as 0.3-0.5 mmol/L. Suggest redraw and reanalysis. Chloride 97 97 - 110 mmol/L [facility] CO2 33(H) 22 - 32 mmol/L [facility] Anion gap 11 2 - 15 mmol/L [facility] BUN 34(H) 6 - 25 mg/dL [facility] Creatinine 1.60(H) 0.80 - 1.30 mg/dL [facility] Glucose 81 70 - 199 mg/dL [facility] Comment: Interpretive Data Fasting glucose >/= 126 [...] 2022. Calcium 9.3 8.5 - 10.3 mg/dL [facility] Blood 08/11/2024 9:17 PM CDT 08/11/2024 9:51 PM CDT Aliya Velez MD LAB BLOOD ORDERABLES Fi nal Result [facility] Department [place] [address] * (ABNORMAL) Drugs of Abuse Screen, Urine [...] 2022. Barbiturates, ur Not Detected CutOff 200ng/mL [facility] Comment: Interpretive Data - Barbiturates: Samples containing greater than 200 ng/mL secobarbital or other cross-reacting barbiturate compounds are reported as positive. False positive and false negative results are possible. Confirmatory testing required for definitive results. Current Interpretive Data was last reviewed 2022. Benzodiazepines, ur Not Detected CutOff 100ng/mL [facility] Comment: Interpretive Data - Benzodiazepines: Samples containing [...] Cocaine, ur Not Detected CutOff 150ng/mL [facility] Comment: Interpretive Data - Cocaine: Samples containing [...] 2022. Oxycodone, ur Not Detected CutOff 100ng/mL [facility] Comment: Interpretive Data - Oxycodone: Samples containing greater than 100 ng/mL oxycodone or other cross-reacting compounds are reported as positive. False positive and false negative results are possible. Confirmatory testing required for definitive results. Current Interpretive Data was last reviewed 2022. Phencyclidine, ur Not Detected CutOff 25 ng/mL [facility] Comment: Interpretive Data - Phencyclidine: Samples containing greater than 25 ng/mL phencyclidine or other cross-reacting compounds are reported as positive. False positive and false negative results are possible. Confirmatory testing required for definitive results. Current Interpretive Data was last reviewed 2022. Urine Creatinine 9 mg/dL [facility] Comment: Interpretive Data Urine Creatinine: < 10 mg/dL is extremely dilute = or > 10 but < 20 mg/dL is dilute = or > 20 mg/dL is normal Current Interpretive Data was last revised on 2017. Urine 08/11/2024 9:43 AM CDT 08/11/2024 10:49 AM CDT Narrative [facility] - 08/11/2024 11:54 AM CDT Drug of Abuse screening is performed by immunoassay for medical purposes only. This is not to be used for Pain Management purposes. If Detected, confirmation testing will be performed for Amphetamines, Cocaine, Fentanyl, Methadone, Opiates, Oxycodone or Phencyclidine. Lucie Tai NP LAB URINE ORDERABLES Final Result [facility] Department [place] [address] * (ABNORMAL) Amphetamine Confirmation, Urine (08/11/2024 9:43 AM CDT) Amphetamine Conf, Ur Does Not Confirm CutOff 150ng/mL Methamphetamine Conf, Ur Confirmed Positive(A) CutOff 150ng/mL [facility] MDA Conf, Ur Does Not Confirm CutOff 150ng/mL [facility] MDMA Conf, Ur Does Not Confirm CutOff 50 ng/mL [facility] MDEA Conf, Ur Does Not Confirm CutOff 150ng/mL [facility] MBDB Conf, Ur Does Not Confirm CutOff 150ng/mL [facility] Comment: Interpretive Data This test detects the presence or absence of drug compounds using LC Tandem mass spectrometry. While this test is highly specific, false positive and false negative results may occur in very rare circumstances. Contact the laboratory for consultation, if needed. Performance characteristics were determined by the [facility] in a manner consistent with CLIA requirement and has not been cleared or approved by the U.S. Food and Drug Administration. Current interpretive data was last revised on 2020. Urine 08/11/2024 9:43 AM CDT 08/11/2024 11:01 AM CDT Lucie Tai NP LAB URINE ORDERABLES Final Result Performing Organization Address City/[facility] Co de Phone Number [facility] Department [place] [address] * Troponin I high-sensitivity 2-hour (08/11/2024 3:24 AM CDT) Trop I hs 25 <=35 ng/L Comment: Interpretive Data For further hscTnI resources including the diagnostic algorithm and an aid in interpretation, copy and paste this link: https://bjhlab.testcatalog.org/show/hsTrop-1 Current Interpretive Data last revised 2019. Trop I hs delta See Comment ng/L [facility] Comment:Inappropriate collec tion time to report a delta. Trop I hs pct delta See Comment % [facility] Comment:Inappropriate collec tion time to report a delta. Trop I hs interp See Comment [facility] Comment:Inappropriate collec tion time to report a delta. Blood 08/11/2024 3:24 AM CDT 08/11/2024 3:36 AM CDT us Melly Moctezuma MD LAB BLOOD ORDERABLES Final Result Performing Organization Address City/[facility] Co de Phone Number [facility] [place] [address] * (ABNORMAL) Pro B-type natriuretic peptide (08/11/2024 [...] LAB BLOOD ORDERABLES Final Re sult CERNER [facility] Department [place] [address] * XR Chest PA Lateral 2 Views (08/11/2024 12:20 AM CDT) Anatomical Region Laterality Modality Body, Chest N/A Computed Radiogr aphy 08/11/2024 1:20 AM CDT Impressions 08/11/2024 11:13 AM CDT Comparison is made to chest radiograph 02/13/2024. There is bibasilar atelectasis. No pulmonary consolidation, pleural effusion, or pneumothorax. There is unchanged cardiomegaly. Dictated by: Elpidio Feltcher MD The radiology attending physician has personally [...] 2hr, 4hr, 6hr) (08/11/2024 12:11 AM CDT) Pathologist [facility] Trop I hs 26 <=35 ng/L Comment: Interpretive Data For further hscTnI resources including the diagnostic algorithm and an aid in interpretation, copy and paste this link: https://bjhlab.testcatalog.org/show/hsTrop-1 Current Interpretive Data last revised 2019. Blood 08/11/2024 12:1 1 AM CDT 08/11/2024 12:28 AM CDT Kiel Oliveira MD LAB BLOOD ORDERABLES Final Re sult MARINO [facility] Department [place] [address] * (ABNORMAL) eGFR (08/11/2024 12:11 AM CDT) Pathologist [facility] eGFR 53(L) >=60 mL/min/1. 73 m2 Comment: [...] MD LAB BLOOD ORDERABLES Final Re sult [facility] Department [place] [address] * Differential, auto (08/11/2024 12:11 AM CDT) [facility] Neutrophil abs 4.47 1.50 - 6.50 K/cumm Imm gran abs 0.02 0.00 - 0.10 K/cumm [facility] Lymphocyte abs 1.79 0.80 - 3.30 K/cumm [facility] Monocyte abs 0.50 0.20 - 0.80 K/cumm [facility] Eosinophil abs 0.24 0.00 - 0.50 K/cumm [facility] Basophil abs 0.07 0.00 - 0.10 K/cumm [facility] Neutrophil pct 63.0 % [facility] Comment: Interpretive Data Percent cell count reference ranges are not reported, since discordance with absolute values may lead to misinterpretation of CBC data. Current Interpretive Data was last revised on 2017. Imm gran pct 0.3 % [facility] Comment: Interpretive Data Percent cell count reference ranges are not reported, since discordance with absolute values may lead to misinterpretation of CBC data. Current Interpretive Data was last revised on 2017. Lymphocyte pct 25.2 % [facility] Comment: Interpretive Data Percent cell count reference ranges are not reported, since discordance with absolute values may lead to misinterpretation of CBC data. Current Interpretive Data was last revised on 2017. Monocyte pct 7.1 % [facility] Comment: Interpretive Data Percent cell count reference ranges are not reported, since discordance with absolute values may lead to misinterpretation of CBC data. Current Interpretive Data was last revised on 2017. Eosinophil pct 3.4 % [facility] Comment: Interpretive Data Percent cell count reference ranges are not reported, since discordance with absolute values may lead to misinterpretation of CBC data. Current Interpretive Data was last revised on 2017. Basophil pct 1.0 % [facility] Comment: Interpretive Data Percent cell count reference ranges are not reported, since discordance with absolute values may lead to misinterpretation of CBC data. Current Interpretive Data was last revised on 2017. Blood 08/11/2024 12:1 1 AM CDT 08/11/2024 12:27 AM CDT us Kiel Oliveira MD LAB BLOOD ORDERABLES Final Re sult [facility] Department [place] [address] * (ABNORMAL) CBC with auto differential (08/11/2024 12:11 AM CDT) WBC 7.09 3.80 - 9.90 K/cumm Hgb 13.2 13.0 - 17.5 g/dL [facility] Hct 41.2 38.9 - 50.3 % [facility] Plt 192 150 - 400 K/cumm [facility] MPV 10.0 9.1 - 12.3 fL [facility] RBC 4.20(L) 4.30 - 5.80 M/cumm [facility] MCV 98.1(H) 81.3 - 96.4 fL [facility] MCH 31.4 27.1 - 33.3 pg [facility] MCHC 32.0(L) 32.3 - 35.7 g/dL [facility] RDW CV 14.7 11.1 - 14.9 % [facility] RDW SD 53.1(H) 35.7 - 48.1 fL [facility] NRBC abs 0.00 0.00 - 0.01 K/cumm [facility] Blood 08/11/2024 12:1 1 AM CDT 08/11/2024 12:27 AM CDT us Kiel Oliveira MD LAB BLOOD ORDERABLES Final Re sult [facility] Department [place] [address] * (ABNORMAL) Comprehensive metabolic panel (08/11/2024 12:11 AM CDT) Sodium 141 135 - 145 mmol/L Potassium, pl 4.8 3.3 - 4.9 mmol/L [facility] Chloride 103 97 - 110 mmol/L [facility] CO2 32 22 - 32 mmol/L [facility] Anion gap 6 2 - 15 mmol/L [facility] BUN 32(H) 6 - 25 mg/dL [facility] Creatinine 1.44(H) 0.80 - 1.30 mg/dL [facility] Glucose 103 70 - 199 mg/dL [facility] Comment: Interpretive Data Fasting glucose >/= 126 [...] 2022. Calcium 9.5 8.5 - 10.3 mg/dL [facility] Bilirubin, total 0.8 0.1 - 1.2 mg/dL [facility] Protein, pl 7.3 6.5 - 8.5 g/dL [facility] Albumin 3.8 3.5 - 5.0 g/dL [facility] Alk phos 95 40 - 130 Units/L [facility] ALT 56(H) 7 - 55 Units/L [facility] AST 49 10 - 50 Units/L [facility] Blood 08/11/2024 12:1 1 AM CDT 08/11/2024 12:26 AM CDT us Kiel Oliveira MD LAB BLOOD ORDERABLES Final Re sult [facility] Department [place] [address] * ECG 12-LEAD (08/10/2024 11:56 PM CDT) Narrative [facility] - 08/10/2024 11:56 PM CDT Heron [...] Kiel Oliveira MD ECG ORDERABLES Final Result [facility] * Cardiology Document Scan (07/17/2024 8:52 AM CDT) Anatomical Region Laterality Modality Other Roberto Godinez MD CV CARDIAC SERVICES PROC EDURES Final Result * Cardiology Document Scan (07/16/2024 8:45 AM CDT) Anatomical Region Laterality Modality Other us Jill Lundberg NP CV CARDIAC SERVICES PROCEDUR [...] data last revised 21. Testing performed by: [facility], [address] [place] [address]., [address] Blood 12/12/2023 10:0 0 AM CDT 12/12/2023 12:16 PM CDT Lisa JACINTO LAB BLOOD ORDERABLES [facility] al Result [facility] [address] [facility] Department of Laboratories [place], [place] [id number] from Last 3 Months or Most Recently Relevant to Health Maintenance Insurance [facility] MEDICARE IDPA MEDICARE IDPA Advance Directives For more information, please contact: [phone] * Full Code (Latest Code Status on File) Date Activated Date Inactivated Comments 08/11/2024 5:02 PM 08/14/2024 12:27 AM * Full Code Date Activated Date Inactivated Comments 11/03/2023 4:46 PM 11/06/2023 6:41 PM * Full Code Date Activated Date Inactivated Comments 07/18/2023 11:06 AM 07/19/2023 7:36 PM Care Teams Raw Products Director Relationship Specialty Start Date End Date Lashae Marcano NP [address] [place] [address] PCP - General Family Practice 08/28/24 [place] [address] [address] Consulting Physician Cardiovascular Disease 07/19/23
[2024-09-23 18:54] VITALS: BP 147/120; PULSE 108; RESP 19; TEMP 36.6; O2SAT 98
[2024-09-23 19:15] VITALS: PULSE 96
[2024-09-23 19:17] VITALS: O2SAT 99
[2024-09-23 19:20] VITALS: BP 141/107; PULSE 100; RESP 26; O2SAT 97
--- NOTE | 2024-09-23 19:21 | ECG_ITS ---
Test Date: 2024-09-23 20:06:32 Measurements Intervals [place] Rate: 102 P: 61 AR: 181 QRS: -24 QRSD: 111 T: 135 QT: 354 QTc: 463 Interpretive Statements SINUS TACHYCARDIA LEFT ATRIAL ENLARGEMENT INTRAVENTRICULAR CONDUCTION DELAY DELAYED PRECORDIAL R/S TRANSITION LEFT VENTRICULAR HYPERTROPHY AND ST-T CHANGE ST-T WAVE ABNORMALITY IN LATERAL LEADS- CONSIDER ISCHEMIA ABNORMAL ECG Compared to ECG 08/28/2024 00:39:06 NO SIGNIFICANT CHANGE Electronically Signed On 09-23-2024 20:58:01 CDT by Malik Lee D.O.
--- OUTSIDE RECORDS SUMMARY | 2024-09-23 19:27 | XMS_ITS | Encounter Summary ---
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
--- OUTSIDE RECORDS SUMMARY | 2024-09-23 19:27 | XMS_ITS | Clinical Summary ---
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 Male hypogonadism 01/05/2020 Vitamin D deficiency [...] Department Care Team Description 09/07/2024 Orders Only [facility] Cardiology [address] [place] [address] Jill Lundberg NP 09/02/2024 Orders Only [facility] Cardiology [address] [place] [address] Adria Martínez MD 08/11/2024 1:05 AM CDT - 08/13/2024 8:00 PM CDT Hospital Encounter [facility] [address] [place] [address] Kiel Oliveira MD Heath, MD Vashti Pierson, MD Kosta Uriarte, MD Agustin Vargas, MD Heath Lane, Debbi Chand MD Acute on chronic congestive heart failure, unspecified heart failure type (HCC) (Primary Dx); NITA (acute kidney injury) Discharge Disposition: Left Against Medical Advice 07/21/2024 Orders Only [facility] Cardiology [address] [place] [address] Jill Lundberg NP 07/16/2024 Orders Only [facility] Information Management [address] [place] [address] Jill Lundberg NP from Last 3 Months [...] Tobacco: Never Tobacco Cessation:Counseling Given: Not Answered [facility] Utilities Answer Date Recorded In the past 12 months has [employer], gas, oil, or water company threatened to [...] often do you attend chur ch or oriental orthodox services? Never 08/12/2024 Do you belong to any clubs o r organizations such as pentecostal groups, unions, fraternal or athletic groups, or [...] time in the past 12 m [facility], were you homeless or living in a nursing home (including now)? Yes 08/13/2024 Personal Safety Answer Date Recorded Have you ever been in or are you currently in a harmful physical or emotional relationship or is someone making you feel afraid or unsafe? 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 Gender Identity Not on file Sexual Orientation [...] MD LAB BLOOD ORDERABLES Final R esult [facility] Department [place] [address] * (ABNORMAL) Basic metabolic panel (08/13/2024 4:30 AM CDT) Pathologist [facility] Sodium 140 135 - 145 mmol/L Potassium, pl 3.7 3.3 - 4.9 mmol/L [facility] Chloride 101 97 - 110 mmol/L [facility] CO2 33(H) 22 - 32 mmol/L [facility] Anion gap 6 2 - 15 mmol/L [facility] BUN 35(H) 6 - 25 mg/dL [facility] Creatinine 1.35(H) 0.80 - 1.30 mg/dL [facility] Glucose 125 70 - 199 mg/dL [facility] Comment: Interpretive Data Fasting glucose >/= 126 [...] Calcium 9.2 8.5 - 10.3 mg/dL [facility] Blood 08/13/2024 4:30 AM CDT 08/13/2024 5:41 AM CDT us Debbi Joe MD LAB BLOOD ORDERABLES Final R esult [facility] Department [place] [address] * TRANSTHORACIC ECHO (TTE) COMPLETE W DOPPLER/CF W CONTRAST (08/12/2024 11:33 AM CDT) EF Mod BP 27 % CONS SCIMAGE Anatomical Region Laterality Modality Ultrasound 08/12/2024 10:2 4 AM CDT Narrative 08/12/2024 5:51 PM CDT [facility] [place] [address] Transthoracic Echocardiographic Report Patient Name: CELINA PAK W : 1955 (69y 2m) Gender: M Study Date: 08/12/2024 10:24:42 AM Ht(Inch): 72 Wt(Lb): 212.96 BSA: 2.22 Rn Surgical Pcu: Silva Angela Location: [id number] Order Provider: ALIYA VELEZ Heart Rate: 90 [...] Note Celina Rinaldi MD PhD - 08/12/2024 [facility] [place] [address] Transthoracic Echocardiographic Report Patient Name: CELINA PAK W : 1955 (69y 2m) Gender: M Study Date: 08/12/2024 10:24:42 AM Ht(Inch): 72 Wt(Lb): 212.96 BSA: 2.22 Rn Surgical Pcu: Silva Angela Location: [id number] Order Provider:ALIYA VELEZ Heart Rate: 90 BMI: [...] LA Length 4C 6.60 cm MV Decel Hfuz751.12 msec [ 104.00 - 258.00 ] LA [...] mmHg RA Volume Index 50.89 ml/m2 MR CDR204.1 cm RVOT Diam 4.90 cm TR Peak Vel2.9 m/s [ 1.0 - 2.8 ] AoR Diam 2D 4.09 cm [ 3.10 - 3.70 ] TR Peak PG33.6 mmHg Ao Root Index 1.84 cm/m2 [ 1.00 - 2.00 ] Asc Ao Diam 2D3.67 cm Asc Ao Index1.65 cm/m2 Electronically Signed By: Celina Rinaldi MD 08/12/2024 5:51:27 PM CDT [facility] Jaime Velez MD CV ECHO PROCEDURES Antonette l Result * Lactate (08/12/2024 2:57 AM CDT) Lactate 0.8 0.7 - 2.0 mmol/L Blood 08/12/2024 2:57 AM CDT 08/12/2024 3:18 AM CDT Aliya Velez MD LAB BLOOD ORDERABLES Fi nal Result Performing Organization Address [facility] de Phone Number [facility] [place] [address] * (ABNORMAL) eGFR (08/11/2024 9:17 PM CDT) [...] ORDERABLES Fi nal Result Performing Organization Address [facility] Co de Phone Number [facility] [place] [address] * Magnesium (08/11/2024 9:17 PM CDT) Magnesium 1.9 1.4 - 2.5 mg/dL Blood 08/11/2024 9:17 PM CDT 08/11/2024 9:51 PM CDT Aliya Milton Velez MD LAB BLOOD ORDERABLES nal Result [facility] Department [place] [address] * (ABNORMAL) Basic metabolic panel (08/11/2024 9:17 PM CDT) Pathologist [facility] Sodium 141 135 - 145 mmol/L Potassium, pl 4.1 3.3 - 4.9 mmol/L [facility] Comment:Hemolyzed; Potassium value may be falsely elevated by as much as 0.3-0.5 mmol/L. Suggest redraw and reanalysis. Chloride 97 97 - 110 mmol/L [facility] CO2 33(H) 22 - 32 mmol/L [facility] Anion gap 11 2 - 15 mmol/L [facility] BUN 34(H) 6 - 25 mg/dL [facility] Creatinine 1.60(H) 0.80 - 1.30 mg/dL [facility] Glucose 81 70 - 199 mg/dL [facility] Comment: Interpretive Data Fasting glucose >/= 126 [...] 2022. Calcium 9.3 8.5 - 10.3 mg/dL [facility] Blood 08/11/2024 9:17 PM CDT 08/11/2024 9:51 PM CDT Aliya Rose Jaime Velez MD LAB BLOOD ORDERABLES Fi nal Result [facility] [place] [address] * (ABNORMAL) Drugs of Abuse Screen, Urine [...] Barbiturates, ur Not Detected CutOff 200ng/mL [facility] Comment: Interpretive Data - Barbiturates: Samples containing greater than 200 ng/mL secobarbital or other cross-reacting barbiturate compounds are reported as positive. False positive and false negative results are possible. Confirmatory testing required for definitive results. Current Interpretive Data was last reviewed 2022. Benzodiazepines, ur Not Detected CutOff 100ng/mL [facility] Comment: Interpretive Data - Benzodiazepines: Samples containing greater than 100 ng/mL nordiazepam or other cross-reacting compounds are reported as positive. False positive and false negative results are possible. Confirmatory testing required for definitive results. Current Interpretive Data was last reviewed 2022. Cannabinoids, ur Not Detected CutOff 50 ng/mL [facility] Comment: Interpretive Data - Cannabinoids: Samples containing greater than 50 ng/mL delta-9 THC -COOH or other cross- reacting compounds are reported as positive. False positive and false negative results are possible. Confirmatory testing required for definitive results. Current Interpretive Data was last reviewed 2022. Cocaine, ur Not Detected CutOff 150ng/mL [facility] Comment: Interpretive Data - Cocaine: Samples containing greater than 150 ng/mL benzoylecgonine or other cross- reacting compounds are reported as positive. False positive and false negative results are possible. Confirmatory testing required for definitive results. Current Interpretive Data was last reviewed 2022. Fentanyl, Ur Not Detected CutOff 5 ng/mL [facility] Comment: Interpretive Data - Fentanyl: Samples containing greater than 5 ng/mL norfentanyl, fentanyl, or other cross-reacting fentanyl compounds are reported as positive. False positive and false negative results are possible. Confirmatory testing required for definitive results. Current Interpretive Data was last reviewed 2023. Methadone, ur Not Detected CutOff 300ng/mL [facility] Comment: Interpretive Data - Methadone: Samples containing greater than 300 ng/mL d,l-methadone or other cross-reacting compounds are reported as positive. False positive and false negative results are possible. Confirmatory testing required for definitive results. Current Interpretive Data was last reviewed 2022. Opiates, ur Not Detected CutOff 300ng/mL [facility] Comment: Interpretive Data - Opiates: Samples containing greater than 300 ng/mL morphine or other cross-reacting compounds are reported as positive. False positive and false negative results are possible. Confirmatory testing required for definitive results. Current Interpretive Data was last reviewed 2022. Oxycodone, ur Not Detected CutOff 100ng/mL [facility] Comment: Interpretive Data - Oxycodone: Samples containing greater than 100 ng/mL oxycodone or other cross-reacting compounds are reported as positive. False positive and false negative results are possible. Confirmatory testing required for definitive results. Current Interpretive Data was last reviewed 2022. Phencyclidine, ur Not Detected CutOff 25 ng/mL [facility] Comment: Interpretive Data - Phencyclidine: Samples containing greater than 25 ng/mL phencyclidine or other cross-reacting compounds are reported as positive. False positive and false negative results are possible. Confirmatory testing required for definitive results. Current Interpretive Data was last reviewed 2022. Urine Creatinine 9 mg/dL [facility] Comment: Interpretive Data Urine Creatinine: < 10 mg/dL is extremely dilute = or > 10 but < 20 mg/dL is dilute = or > 20 mg/dL is normal Current Interpretive Data was last revised on 2017. Urine 08/11/2024 9:43 AM CDT 08/11/2024 10:49 AM CDT [facility]ative [facility] - 08/11/2024 11:54 AM CDT Drug of Abuse screening is performed by immunoassay for medical purposes only. This is not to be used for Pain Management purposes. If Detected, confirmation testing will be performed for Amphetamines, Cocaine, Fentanyl, Methadone, Opiates, Oxycodone or Phencyclidine. Lucie Tai NP LAB URINE ORDERABLES Final Result Performing Organization Address City/[facility]/ZIP Co de Phone Number [facility] Department [place] [address] * (ABNORMAL) Amphetamine Confirmation, Urine (08/11/2024 9:43 AM CDT) Pathologist [facility] Amphetamine Conf, Ur Does Not Confirm CutOff 150ng/mL Methamphetamine Conf, Ur Confirmed Positive(A) CutOff 150ng/mL [facility] MDA Conf, Ur Does Not Confirm CutOff 150ng/mL [facility] MDMA Conf, Ur Does Not Confirm CutOff 50 ng/mL [facility] MDEA Conf, Ur Does Not Confirm CutOff 150ng/mL [facility] MBDB Conf, Ur Does Not Confirm CutOff 150ng/mL [facility] Comment: Interpretive Data This test detects the presence or absence of drug compounds using LC Tandem mass spectrometry. While this test is highly specific, false positive and false negative results may occur in very rare circumstances. Contact the laboratory for consultation, if needed. Performance characteristics were determined by the [facility] in a manner consistent with CLIA requirement and has not been cleared or approved by the U.S. Food and Drug Administration. Current interpretive data was last revised on 2020. Urine 08/11/2024 9:43 AM CDT 08/11/2024 11:01 AM CDT Lucie Tai NP LAB URINE ORDERABLES Final Result Performing Organization Address City/[facility]/ZIP Co de Phone Number [facility] Department [place] [address] * Troponin I high-sensitivity 2-hour (08/11/2024 3:24 AM CDT) Trop I hs 25 <=35 ng/L Comment: Interpretive Data For further hscTnI resources including the diagnostic algorithm and an aid in interpretation, copy and paste this link: https://bjhlab.testcatalog.org/show/hsTrop-1 Current Interpretive Data last revised 2019. Trop I hs delta See Comment ng/L [facility] Comment:Inappropriate collec tion time to report a delta. Trop I hs pct delta See Comment % [facility] Comment:Inappropriate collec tion time to report a delta. Trop I hs interp See Comment [facility] Comment:Inappropriate collec tion time to report a delta. Blood 08/11/2024 3:24 AM CDT 08/11/2024 3:36 AM CDT us Melly Moctezuma MD LAB BLOOD ORDERABLES Final Result [facility] [place] [address] * (ABNORMAL) Pro B-type natriuretic peptide (08/11/2024 1:27 AM CDT) Pathologist [facility] NT-proBNP 7,728(H) <=300 pg/mL Comment: Interpretive Comments: [...] ORDERABLES Final Re sult [facility] [place] [address] * XR Chest PA Lateral 2 Views [...] LAB BLOOD ORDERABLES Final Re sult [facility] [place] [address] * (ABNORMAL) eGFR (08/11/2024 12:11 AM CDT) [...] MD LAB BLOOD ORDERABLES Final Re sult [facility] Department [place] [address] * Differential, auto (08/11/2024 12:11 AM CDT) Neutrophil abs 4.47 1.50 - 6.50 K/cumm Imm gran abs 0.02 0.00 - 0.10 K/cumm [facility] Lymphocyte abs 1.79 0.80 - 3.30 K/cumm [facility] Monocyte abs 0.50 0.20 - 0.80 K/cumm [facility] Eosinophil abs 0.24 0.00 - 0.50 K/cumm [facility] Basophil abs 0.07 0.00 - 0.10 K/cumm [facility] Neutrophil pct 63.0 % [facility] Comment: Interpretive Data Percent cell count reference ranges are not reported, since discordance with absolute values may lead to misinterpretation of CBC data. Current Interpretive Data was last revised on 2017. Imm gran pct 0.3 % [facility] Comment: Interpretive Data Percent cell count reference ranges are not reported, since discordance with absolute values may lead to misinterpretation of CBC data. Current Interpretive Data was last revised on 2017. Lymphocyte pct 25.2 % [facility] Comment: Interpretive Data Percent cell count reference ranges are not reported, since discordance with absolute values may lead to misinterpretation of CBC data. Current Interpretive Data was last revised on 2017. Monocyte pct 7.1 % [facility] Comment: Interpretive Data Percent cell count reference ranges are not reported, since discordance with absolute values may lead to misinterpretation of CBC data. Current Interpretive Data was last revised on 2017. Eosinophil pct 3.4 % [facility] Comment: Interpretive Data Percent cell count reference ranges are not reported, since discordance with absolute values may lead to misinterpretation of CBC data. Current Interpretive Data was last revised on 2017. Basophil pct 1.0 % [facility] Comment: Interpretive Data Percent cell count reference ranges are not reported, since discordance with absolute values may lead to misinterpretation of CBC data. Current Interpretive Data was last revised on 2017. Blood 08/11/2024 12:1 1 AM CDT 08/11/2024 12:27 AM CDT us Kiel Oliveira MD LAB BLOOD ORDERABLES Final Re sult [facility] [place] [address] * (ABNORMAL) CBC with auto differential (08/11/2024 12:11 AM CDT) WBC 7.09 3.80 - 9.90 K/cumm Hgb 13.2 13.0 - 17.5 g/dL [facility] Hct 41.2 38.9 - 50.3 % [facility] Plt 192 150 - 400 K/cumm [facility] MPV 10.0 9.1 - 12.3 fL [facility] RBC 4.20(L) 4.30 - 5.80 M/cumm [facility] MCV 98.1(H) 81.3 - 96.4 fL [facility] MCH 31.4 27.1 - 33.3 pg [facility] MCHC 32.0(L) 32.3 - 35.7 g/dL [facility] RDW CV 14.7 11.1 - 14.9 % [facility] RDW SD 53.1(H) 35.7 - 48.1 fL [facility] NRBC abs 0.00 0.00 - 0.01 K/cumm [facility] Blood 08/11/2024 12:1 1 AM CDT 08/11/2024 12:27 AM CDT us Kiel Oliveira MD LAB BLOOD ORDERABLES Final Re sult [facility] Department [place] [address] * (ABNORMAL) Comprehensive metabolic panel (08/11/2024 12:11 AM CDT) Sodium 141 135 - 145 mmol/L Potassium, pl 4.8 3.3 - 4.9 mmol/L [facility] Chloride 103 97 - 110 mmol/L [facility] CO2 32 22 - 32 mmol/L [facility] Anion gap 6 2 - 15 mmol/L [facility] BUN 32(H) 6 - 25 mg/dL [facility] Creatinine 1.44(H) 0.80 - 1.30 mg/dL [facility] Glucose 103 70 - 199 mg/dL [facility] Comment: Interpretive Data Fasting glucose >/= 126 [...] 2022. Calcium 9.5 8.5 - 10.3 mg/dL [facility] Bilirubin, total 0.8 0.1 - 1.2 mg/dL [facility] Protein, pl 7.3 6.5 - 8.5 g/dL [facility] Albumin 3.8 3.5 - 5.0 g/dL [facility] Alk phos 95 40 - 130 Units/L [facility] ALT 56(H) 7 - 55 Units/L [facility] AST 49 10 - 50 Units/L [facility] Blood 08/11/2024 12:1 1 AM CDT 08/11/2024 12:26 AM CDT us Kiel Oliveira MD LAB BLOOD ORDERABLES Final Re sult [facility] Department [place] [address] * ECG 12-LEAD (08/10/2024 11:56 PM CDT) Narrative [facility] - 08/10/2024 11:56 PM CDT Heron Cruz [...] Kiel Oliveira MD ECG ORDERABLES Final Result [facility] * Cardiology Document Scan (07/17/2024 8:52 [...] data last revised 21. Testing performed by: [facility], [address] [place] [address]., [id number] Blood 12/12/2023 10:0 0 AM CDT 12/12/2023 12:16 PM CDT us Lisa JACINTO LAB BLOOD ORDERABLES Fin al Result Performing Organization Address City/State/ZIP Co me Phone Number [facility] [address] [facility] [place] [address] from Last 3 Months or Most Recently Relevant to Health Maintenance Insurance [facility] [place] [facility] [place] MEDICARE ID[place] Advance Directives For more information, please contact: [phone] * Full Code (Latest Code Status on File) Date Activated Date Inactivated Comments 08/11/2024 5:02 PM 08/14/2024 12:27 AM * Full Code Date Activated Date Inactivated Comments 11/03/2023 4:46 PM 11/06/2023 6:41 PM * Full Code Date Activated Date Inactivated Comments 07/18/2023 11:06 AM 07/19/2023 7:36 PM Care Teams Scientific Programmer Analyst Relationship Specialty Start Date End Date Lashae Marcano NP [address] [place] [address] PCP - General Family Practice 08/28/24 [place] [address] [address] Consulting Physician Cardiovascular Disease 07/19/23
--- OUTSIDE RECORDS SUMMARY | 2024-09-23 19:27 | XMS_ITS | Referral Summary ---
Author Organization [facility] Address [address] [place] [address] Care Team Providers Care Assembler Name Role Phone Zion Gaspar MD Unavailable Lashae Marcano NP Primary Care Provider [phone] Encounters Date Type Department Care Team Description 09/07/2024 Orders Only [facility] Medical [facility] Cardiology [address] [facility] [address] [place] [phone] Jill Lundberg NP 09/02/2024 Orders Only [facility] Cardiology [address] [place] [phone] Adria Martínez MD 08/11/2024 1:05 AM CDT - 08/13/2024 8:00 PM CDT Hospital Encounter [address] [phone] Kiel Oliveira MD Heath, MD Vashti Pierson, MD Kosta Uriarte Zalak Vipul, MD Choi, MD Heath Lane, Debbi Chand MD Acute on chronic congestive heart failure, unspecified heart failure type (HCC) (Primary Dx); NITA (acute kidney injury) Discharge Disposition: Left Against Medical Advice 07/21/2024 Orders Only [facility] Cardiology [address] [place] [phone] Jill Lundberg, ISAMAR 07/16/2024 Orders Only [facility] Information Management [address] [place] [address] Jill Lundberg, ISAMAR from Last 3 Months [...] refilled today 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 Male hypogonadism 01/05/2020 Vitamin D deficiency 06/28/2019 [...] Tobacco: Never Tobacco Cessation:Counseling Given: Not Answered [facility] Utilities Answer Date Recorded In the past 12 months has [employer], [employer], oil, or water [employer] threatened to shut off services in your [...] often do you attend chur ch or zoroastrian services? Never 08/12/2024 Do you belong to any clubs o r organizations such as worship groups, unions, fraternal or athletic groups, or [...] any time in the past 12 m [facility], were you homeless or living in a care home (including now)? Yes 08/13/2024 Personal Safety Answer Date Recorded Have you ever been in or are you currently in a harmful physical or emotional relationship or is someone making you feel afraid or unsafe? 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 One [facility] Department [place] [address] * (ABNORMAL) Basic metabolic panel (08/13/2024 4:30 AM CDT) Pathologist [facility] Department Sodium 140 135 - 145 mmol/L Potassium, pl 3.7 3.3 - 4.9 mmol/L [facility] Chloride 101 97 - 110 mmol/L [facility] CO2 33(H) 22 - 32 mmol/L [facility] Anion gap 6 2 - 15 mmol/L [facility] BUN 35(H) 6 - 25 mg/dL [facility] Creatinine 1.35(H) 0.80 - 1.30 mg/dL [facility] Glucose 125 70 - 199 mg/dL [facility] Comment: Interpretive Data Fasting glucose >/= [...] 2022. Calcium 9.2 8.5 - 10.3 mg/dL [facility] Blood 08/13/2024 4:30 AM CDT 08/13/2024 5:41 AM CDT us Debbi Joe MD LAB BLOOD ORDERABLES Final R esult [facility] Department [place] [address] * TRANSTHORACIC ECHO (TTE) COMPLETE W DOPPLER/CF W CONTRAST (08/12/2024 11:33 AM CDT) [facility] EF Mod BP 27 % CONS SCIMAGE Anatomical Region Laterality Modality Ultrasound 08/12/2024 10:2 4 AM CDT Narrative 08/12/2024 5:[address] [facility] [place] [address] Transthoracic Echocardiographic Report Patient Name: CELINA PAK W : 1955 (69y 2m) Gender: M Study Date: 08/12/2024 10:24:42 AM Ht(Inch): 72 Wt(Lb): 212.96 BSA: 2.22 Feller Buncher Operator: Silva Angela Location: [id number] Order Provider: ALIYA VELEZ Heart Rate: 90 [...] Celina Rinaldi MD PhD - 08/12/2024 [facility] Cardiac [place] [address] Transthoracic Echocardiographic Report Patient Name: CELINA PAK W : 1955 (69y 2m) Gender: M Study Date: 08/12/2024 10:24:42 AM Ht(Inch): 72 Wt(Lb): 212.96 BSA: 2.22 Feller Buncher Operator: Silva Angela Location: [id number] Order Provider:ALIYA VELEZ Heart Rate: 90 BMI: [...] LA Length 4C 6.60 cm MV Decel Dajr661.12 msec [ 104.00 - 258.00 ] LA [...] mmHg RA Volume Index 50.89 ml/m2 MR AGG586.1 cm RVOT Diam 4.90 cm TR Peak [...] MD LAB BLOOD ORDERABLES Fi nal Result [facility] One [facility] Department [place] [address] * (ABNORMAL) eGFR (08/11/2024 9:17 PM CDT) [...] ORDERABLES Fi nal Result Performing Organization Address City/[facility]/ZIP Co de Phone Number [facility] [place] [address] * Magnesium (08/11/2024 9:17 PM CDT) Pathologist [facility] Magnesium 1.9 1.4 - 2.5 mg/dL Blood 08/11/2024 9:17 PM CDT 08/11/2024 9:51 PM CDT Aliya Velez MD LAB BLOOD ORDERABLES Fi nal Result Performing Organization Address [facility] de Phone Number [facility] [place] [address] * (ABNORMAL) Basic metabolic panel (08/11/2024 9:17 PM CDT) Pathologist [facility] Sodium 141 135 - 145 mmol/L Potassium, pl 4.1 3.3 - 4.9 mmol/L [facility] Comment:Hemolyzed; Potassium value may be falsely elevated by as much as 0.3-0.5 mmol/L. Suggest redraw and reanalysis. Chloride 97 97 - 110 mmol/L [facility] CO2 33(H) 22 - 32 mmol/L [facility] Anion gap 11 2 - 15 mmol/L [facility] BUN 34(H) 6 - 25 mg/dL [facility] Creatinine 1.60(H) 0.80 - 1.30 mg/dL [facility] Glucose 81 70 - 199 mg/dL [facility] Comment: Interpretive Data Fasting glucose >/= [...] 2022. Calcium 9.3 8.5 - 10.3 mg/dL [facility] Blood 08/11/2024 9:17 PM CDT 08/11/2024 9:51 PM CDT Aliya Velez MD LAB BLOOD ORDERABLES Fi nal Result [facility] One [facility] Department [place] [address] * (ABNORMAL) Drugs of Abuse Screen, Urine [...] 2022. Barbiturates, ur Not Detected CutOff 200ng/mL [facility] Comment: Interpretive Data - Barbiturates: Samples containing greater than 200 ng/mL secobarbital or other cross-reacting barbiturate compounds are reported as positive. False positive and false negative results are possible. Confirmatory testing required for definitive results. Current Interpretive Data was last reviewed 2022. Benzodiazepines, ur Not Detected CutOff 100ng/mL [facility] Comment: Interpretive Data - Benzodiazepines: Samples [...] last reviewed 2022. Urine Creatinine 9 mg/dL [facility] Comment: Interpretive Data Urine Creatinine: < 10 mg/dL is extremely dilute = or > 10 but < 20 mg/dL is dilute = or > 20 mg/dL is normal Current Interpretive Data was last revised on 2017. Urine 08/11/2024 9:43 AM CDT 08/11/2024 10:49 AM CDT Narrative [facility] - 08/11/2024 11:54 AM CDT Drug of Abuse screening is performed by immunoassay for medical purposes only. This is not to be used for Pain Management purposes. If Detected, confirmation testing will be performed for Amphetamines, Cocaine, Fentanyl, Methadone, Opiates, Oxycodone or Phencyclidine. Lucie Tai NP LAB URINE ORDERABLES Final Result [facility] One [facility] Department [place] [address] * (ABNORMAL) Amphetamine Confirmation, Urine (08/11/2024 9:43 AM CDT) Amphetamine Conf, Ur Does Not Confirm CutOff 150ng/mL Methamphetamine Conf, Ur Confirmed Positive(A) CutOff 150ng/mL [facility] MDA Conf, Ur Does Not Confirm CutOff 150ng/mL [facility] MDMA Conf, Ur Does Not Confirm CutOff 50 ng/mL [facility] MDEA Conf, Ur Does Not Confirm CutOff 150ng/mL [facility] MBDB Conf, Ur Does Not Confirm CutOff 150ng/mL [facility] Comment: Interpretive Data This test detects the presence or absence of drug compounds using LC Tandem mass spectrometry. While this test is highly specific, false positive and false negative results may occur in very rare circumstances. Contact the laboratory for consultation, if needed. Performance characteristics were determined by the [facility] in a manner consistent with CLIA requirement and has not been cleared or approved by the U.S. Food and Drug Administration. Current interpretive data was last revised on 2020. Urine 08/11/2024 9:43 AM CDT 08/11/2024 11:01 AM CDT Lucie Tai NP LAB URINE ORDERABLES Final Result Performing Organization Address City/[facility] Co de Phone Number [facility] Department [place] [address] * Troponin I high-sensitivity 2-hour (08/11/2024 3:24 AM CDT) Trop I hs 25 <=35 ng/L Comment: Interpretive Data For further hscTnI resources including the diagnostic algorithm and an aid in interpretation, copy and paste this link: https://bjhlab.testcatalog.org/show/hsTrop-1 Current Interpretive Data last revised 2019. Trop I hs delta See Comment ng/L [facility] Comment:Inappropriate collec tion time to report a delta. Trop I hs pct delta See Comment % [facility] Comment:Inappropriate collec tion time to report a delta. Trop I hs interp See Comment [facility] Comment:Inappropriate collec tion time to report a delta. Blood 08/11/2024 3:24 AM CDT 08/11/2024 3:36 AM CDT us Melly Moctezuma MD LAB BLOOD ORDERABLES Final Result Performing Organization Address City/[facility] Co de Phone Number [facility] One [facility] [place] [address] * (ABNORMAL) Pro B-type natriuretic peptide (08/11/2024 [...] LAB BLOOD ORDERABLES Final Re sult [facility] One [facility] Department [place] [address] * XR Chest PA Lateral 2 Views [...] 4hr, 6hr) (08/11/2024 12:11 AM CDT) Pathologist [facility] Trop I hs 26 <=35 ng/L Comment: Interpretive Data For further hscTnI resources including the diagnostic algorithm and an aid in interpretation, copy and paste this link: https://bjhlab.testcatalog.org/show/hsTrop-1 Current Interpretive Data last revised 2019. Blood 08/11/2024 12:1 1 AM CDT 08/11/2024 12:28 AM CDT Kiel Oliveira MD LAB BLOOD ORDERABLES Final Re sult [facility] One [facility] [place] [address] * (ABNORMAL) eGFR (08/11/2024 12:11 AM CDT) Pathologist [facility] eGFR 53(L) >=60 mL/min/1. 73 m2 Comment: [...] MD LAB BLOOD ORDERABLES Final Re sult [facility] One [facility] Department [place] [address] * Differential, auto (08/11/2024 12:11 AM CDT) [facility] Neutrophil abs 4.47 1.50 - 6.50 K/cumm Imm gran abs 0.02 0.00 - 0.10 K/cumm [facility] Lymphocyte abs 1.79 0.80 - 3.30 K/cumm [facility] Monocyte abs 0.50 0.20 - 0.80 K/cumm [facility] Eosinophil abs 0.24 0.00 - 0.50 K/cumm [facility] Basophil abs 0.07 0.00 - 0.10 K/cumm [facility] Neutrophil pct 63.0 % [facility] Comment: Interpretive Data Percent cell count reference ranges are not reported, since discordance with absolute values may lead to misinterpretation of CBC data. Current Interpretive Data was last revised on 2017. Imm gran pct 0.3 % [facility] Comment: Interpretive Data Percent cell count reference ranges are not reported, since discordance with absolute values may lead to misinterpretation of CBC data. Current Interpretive Data was last revised on 2017. Lymphocyte pct 25.2 % [facility] Comment: Interpretive Data Percent cell count reference ranges are not reported, since discordance with absolute values may lead to misinterpretation of CBC data. Current Interpretive Data was last revised on 2017. Monocyte pct 7.1 % [facility] Comment: Interpretive Data Percent cell count reference ranges are not reported, since discordance with absolute values may lead to misinterpretation of CBC data. Current Interpretive Data was last revised on 2017. Eosinophil pct 3.4 % [facility] Comment: Interpretive Data Percent cell count reference ranges are not reported, since discordance with absolute values may lead to misinterpretation of CBC data. Current Interpretive Data was last revised on 2017. Basophil pct 1.0 % [facility] Comment: Interpretive Data Percent cell count reference ranges are not reported, since discordance with absolute values may lead to misinterpretation of CBC data. Current Interpretive Data was last revised on 2017. Blood 08/11/2024 12:1 1 AM CDT 08/11/2024 12:27 AM CDT us Kiel Oliveira MD LAB BLOOD ORDERABLES Final Re sult [facility] One [facility] [place] [address] * (ABNORMAL) CBC with auto differential (08/11/2024 12:11 AM CDT) WBC 7.09 3.80 - 9.90 K/cumm Hgb 13.2 13.0 - 17.5 g/dL [facility] Hct 41.2 38.9 - 50.3 % [facility] Plt 192 150 - 400 K/cumm [facility] MPV 10.0 9.1 - 12.3 fL [facility] RBC 4.20(L) 4.30 - 5.80 M/cumm [facility] MCV 98.1(H) 81.3 - 96.4 fL [facility] MCH 31.4 27.1 - 33.3 pg [facility] MCHC 32.0(L) 32.3 - 35.7 g/dL [facility] RDW CV 14.7 11.1 - 14.9 % [facility] RDW SD 53.1(H) 35.7 - 48.1 fL [facility] NRBC abs 0.00 0.00 - 0.01 K/cumm [facility] Blood 08/11/2024 12:1 1 AM CDT 08/11/2024 12:27 AM CDT us Kiel Oliveira MD LAB BLOOD ORDERABLES Final Re sult [facility] One [facility] Department [place] [address] * (ABNORMAL) Comprehensive metabolic panel (08/11/2024 12:11 AM CDT) Sodium 141 135 - 145 mmol/L Potassium, pl 4.8 3.3 - 4.9 mmol/L [facility] Chloride 103 97 - 110 mmol/L [facility] CO2 32 22 - 32 mmol/L [facility] Anion gap 6 2 - 15 mmol/L [facility] BUN 32(H) 6 - 25 mg/dL [facility] Creatinine 1.44(H) 0.80 - 1.30 mg/dL [facility] Glucose 103 70 - 199 mg/dL [facility] Comment: Interpretive Data Fasting glucose >/= [...] Calcium 9.5 8.5 - 10.3 mg/dL [facility] Bilirubin, total 0.8 0.1 - 1.2 mg/dL [facility] Protein, pl 7.3 6.5 - 8.5 g/dL [facility] Albumin 3.8 3.5 - 5.0 g/dL [facility] Alk phos 95 40 - 130 Units/L [facility] ALT 56(H) 7 - 55 Units/L [facility] AST 49 10 - 50 Units/L [facility] Blood 08/11/2024 12:1 1 AM CDT 08/11/2024 12:26 AM CDT us Kiel Oliveira MD LAB BLOOD ORDERABLES Final Re sult [facility] One [facility] Department [place] [address] * ECG 12-LEAD (08/10/2024 11:56 PM CDT) [...] Kiel Oliveira MD ECG ORDERABLES Final Result [facility] * Cardiology Document Scan (07/17/2024 8:52 [...] revised 21. Testing performed by: [facility], [address] [place] [address]., [id number] Blood 12/12/2023 10:0 0 AM CDT 12/12/2023 12:16 PM CDT Lisa JACINTO LAB BLOOD ORDERABLES [facility] al Result [facility] [address] [facility] Department of Laboratories [place], [place] [id number] from Last 3 Months or Most Recently Relevant to Health Maintenance Insurance [facility] MEDICARE IDPA MEDICARE IDPA Advance Directives For more information, please contact: [phone] * Full Code (Latest Code Status on File) Date Activated Date Inactivated Comments 08/11/2024 5:02 PM 08/14/2024 12:27 AM * Full Code Date Activated Date Inactivated Comments 11/03/2023 4:46 PM 11/06/2023 6:41 PM * Full Code Date Activated Date Inactivated Comments 07/18/2023 11:06 AM 07/19/2023 7:36 PM Care Teams Assembler Relationship Specialty Start Date End Date Lashae Marcano NP [address] [place] [address] PCP - General Family Practice 08/28/24 [place] [address] [address] Consulting Physician Cardiovascular Disease 07/19/23
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
[2024-09-23 19:45] VITALS: BP 141/108; PULSE 97; RESP 25; O2SAT 96
[2024-09-23] MEDS: FUROSEMIDE INJ 40 MG/4 ML VIAL IV PUSH (19:47)
[2024-09-23 19:58] LABS: Basophils Absolute Auto 0.1 K/mm3 (0.0-0.1); Eosinophils Absolute Auto 0.3 K/mm3 (0-0.3); Hematocrit 41.5 % (42.0-52.0); Hemoglobin 13.1 g/dL (14.0-18.0); Immature Granulocyte Absolute 0.01 K/mm3 (0.00-0.031); Immature Granulocyte Percent A 0.2 % (0-0.5); Lymphocytes Absolute Auto 2.07 K/mm3 (0.9-3.2); Lymphocytes Percent Auto 35.8 % (18.3-44.2); Mean Corpuscular HGB Conc 31.6 g/dl (32-36); Mean Corpuscular Hemoglobin 30.8 pg (26-34); Mean Corpuscular Volume 97.4 fl (80-100); Mean Platelet Volume 10.3 fl (7.4-10.4); Monocytes Absolute Auto 0.5 K/mm3 (0.1-0.6); Monocytes Percent Auto 8.5 % (2.6-8.5); Neutrophils Absolute Auto 2.9 K/mm3 (1.3-6.7); Neutrophils Percent Auto 49.5 % (45.5-73.1); Platelet Count Result 202 k/mm3 (150-375); Red Blood Count 4.26 M/mm3 (4.6-6.20); Red Cell Distribution Width 15.1 % (11.5-14.5); White Blood Count 5.8 K/mm3 (4.5-10.0)
[2024-09-23 20:06] LABS: INR 1.2; Partial Thromboplastin Time 31.9 Seconds (22.3-36.8)
[2024-09-23 20:08] LABS: Alanine Aminotransferase 43 U/L (6-50); Albumin Level 3.9 g/dL (3.5-5.1); Alkaline Phosphatase 73 U/L (38-126); Anion Gap 8 mmol/L (4-12); Aspartate Amino Transferase 63 U/L (17-59); Bilirubin,Total 0.8 mg/dL (0.2-1.3); Blood Urea Nitrogen 25 mg/dL (9-20); Calcium 9.5 mg/dL (8.4-10.2); Carbon Dioxide 24 mmol/L (22-30); Chloride 108 mmol/L (98-107); Estimated CRCL calculation 56 ml/min; Estimated Glomerular Filt Rate 57; Glucose 116 mg/dL (65-110); Lipase 66 U/L (23-300); Potassium 4.1 mmol/L (3.4-5.0); Sodium 140 mmol/L (137-145); Total Protein 7.2 g/dL (6.3-8.2)
[2024-09-23 20:21] LABS: NT Pro B Type Natriuretic Pept 12200 pg/mL (19.9-100); Troponin I 0.025 ng/mL (0.000-0.034)
--- NOTE | 2024-09-23 20:36 | PC.NURSE ---
Patient sitting on edge of bed eating a salad that he brought, with permission from Dr Damon. Eating and drinking without issues. Patient made aware that he still needs to keep monitoring devices in place-patient voiced understanding
[2024-09-23 21:05] VITALS: BP 140/99; PULSE 97; RESP 24; O2SAT 96
--- NOTE | 2024-09-23 22:58 | PC.NURSE ---
This RN attempted to discharge pt and give instructions. Pt refused all vitals. Pt refused to take discharge paperwork and sign disposition. This RN took out pt IV. Pt then states aggressively you guys need to get me a hotel room followed by, how dare you send a taxpayer out to the street. I am going to omar you. This RN attempted to give pt resources and pt refused saying, are you gonna drive me? Pt refused to leave. venetian blind mechanic notified. ED security notified.
== END 2024-09-23 23:19 | disposition home or self-care (01) ==
PROVIDERS: Emergency Provider Emergency Medicine; PCP Nurse Practitioner Family
DX: T50.906A Underdosing of unspecified drugs, medicaments and biological substances, initial encounter (principal); R06.02 Shortness of breath; J44.9 Chronic obstructive pulmonary disease, unspecified; I50.9 Heart failure, unspecified; Z91.148 Patient's other noncompliance with medication regimen for other reason
CPT/HCPCS: 36415; 71046; 80053; 83690; 83880; 84484; 85025; 85610; 85730; 93005; 96374; 99284; J1938

== ENCOUNTER 2024-11-06 02:22 | Observation (INO) | payer MEDICARE, MEDICAID, SELFPAY ==
[2024-11-06] VITALS (8 sets, daily range): BP systolic 113–130; BP diastolic 84–114; PULSE 58–94; RESP 18; TEMP 36.3–37.1; O2SAT 95–100; BMI 28.8
--- NOTE | ~2024-11-06 | XR_ITS ---
CHEST RADIOGRAPH, PA AND LATERAL CLINICAL HISTORY: SOB . COMPARISON: 09/23/2024 and dating back to 07/14/2024 TECHNIQUE: PA and lateral views of the chest. FINDINGS The cardiomediastinal silhouette is markedly enlarged, unchanged with uncoiling of the thoracic aorta . Increased interstitial markings are identified bilaterally, findings suggesting mild pulmonary vascul ar congestion. The remainder of the lungs are clear. IMPRESSION: Mild pulmonary vascular congestion without focal infiltrate or effusion. Reviewed, dictated and finalized at location A.
--- OUTSIDE RECORDS SUMMARY | 2024-11-06 02:24 | XMS_ITS | Clinical Summary ---
Author Organization [facility] Office Center Address [address] [place] [address] Care Team Providers Care Bag Adjuster Name Role Phone Zion Gaspar MD Unavailable Lashae Marcano NP Primary Care Provider [phone] Allergies Active Allergy Reactions Criticality Noted Date Comments Ciprofloxacin Other (See comments) Low 12/27/2008 Sulfa (Sulfonamide Antibiotics) Other (See comments),Rash Medium 10/24/2021 Reaction: Medications albuterol HFA (PROVENTIL HFA,VENTOLIN HFA,PROAIR HFA) 90 mcg/actuation inhalerIndication s:Chronic obstructive pulmonary disease, unspecified COPD type (HCC),Mild persistent asthma without complication Inhale 2 puffs every 6 (six) hours as needed for wheezing 18 g 02/13/20 24 Active aspirin 81 mg enteric coated tabletIndications :cardiovascular disease Take 1 tablet (81 mg total) by mouth daily 30 tablet 02/13/20 24 2024 Active carvediloL (COREG) 6.25 mg tabletIndications :Primary hypertension Take 1 tablet (6.25 mg total) by mouth every 12 (twelve) hours 180 tablet 02/13/20 24 Active furosemide (LASIX) 40 mg tabletIndications :Primary hypertension,Grad e I diastolic dysfunction Take 1 tablet (40 mg total) by mouth daily 90 tablet 02/13/20 24 Active Breztri Aerosphere 160-9-4.8 mcg/actuation inhaler 05/27/19 25 Active atorvastatin (LIPITOR) 10 mg tablet Take 1 tablet (10 mg total) by mouth nightly 30 tablet 2 10/12/19 25 2024 Active cyclobenzaprine (FLEXERIL) 5 mg tablet Take 1 tablet (5 mg total) by mouth 3 (three) times a day as needed for muscle spasms 30 tablet 10/12/19 25 Active hydrOXYzine (ATARAX) 25 mg tablet Take 1 tablet (25 mg total) by mouth 3 (three) times a day as needed for anxiety or itching 60 tablet 10/12/19 25 Active losartan (COZAAR) 25 mg tablet Take 1 tablet (25 mg total) by mouth daily 30 tablet 11 10/19/19 25 2025 Active miconazole 2 % powder Apply topically 2 (two) times a day 70 g 1 10/12/19 25 Active ondansetron ODT (ZOFRAN-ODT) 4 mg disintegrating tabletIndications :Nausea and Vomiting Take 1 tablet (4 mg total) by mouth every 6 (six) hours as needed for nausea or vomiting 20 tablet 10/12/[address] (PROTONIX) 40 mg EC tabletIndications :Stress Ulcer Prophylaxis Take 1 tablet (40 mg total) by mouth daily 30 tablet 1 10/12/19 25 2024 Active LORazepam (ATIVAN) 0.5 mg tablet Take 1 tablet (0.5 mg total) by mouth every 6 (six) hours as needed for anxiety 20 tablet 10/12/19 25 Active Entresto 24-26 mg tabletIndications :Grade I diastolic dysfunction Take 1 tablet by mouth every 12 (twelve) hours 180 tablet 02/13/20 24 2024 Discontinued(S top Taking at Discharge) ondansetron ODT (ZOFRAN-ODT) 4 mg disintegrating tabletIndications :Nausea and Vomiting Take 1 tablet (4 mg total) by mouth every 6 (six) hours as needed for nausea or vomiting 20 tablet 10/12/19 [address] (PROTONIX) 40 mg EC tabletIndications :Stress Ulcer Prophylaxis Take 1 tablet (40 mg total) by mouth daily 30 tablet 1 10/12/19 25 2024 Discontinued miconazole 2 % powder Apply topically 2 (two) times a day 70 g 1 10/12/19 25 2024 Discontinued hydrOXYzine (ATARAX) 25 mg tablet Take 1 tablet (25 mg total) by mouth 3 (three) times a day as needed for anxiety or itching 60 tablet 10/12/19 25 2024 Discontinued atorvastatin (LIPITOR) 10 mg tablet Take 1 tablet (10 mg total) by mouth nightly 30 tablet 2 10/12/19 25 2024 Discontinued cefadroxil (DURICEF) 500 mg capsuleIndication s:Skin/Soft Tissue Infection Take 1 capsule (500 mg total) by mouth 2 (two) times a day for 4 doses 4 capsule 10/12/19 25 2024 Discontinued cyclobenzaprine (FLEXERIL) 5 mg tablet Take 1 tablet (5 mg total) by mouth 3 (three) times a day as needed for muscle spasms 30 tablet 10/12/19 25 2024 Discontinued LORazepam (ATIVAN) 0.5 mg tablet Take 1 tablet (0.5 mg total) by mouth every 6 (six) hours as needed for anxiety 20 tablet 10/12/19 25 2024 Discontinued losartan (COZAAR) 25 mg tablet Take 1 tablet (25 mg total) by mouth daily 30 tablet 11 10/19/19 25 2024 Discontinued cefadroxil (DURICEF) 500 mg capsuleIndication s:Skin/Soft Tissue Infection Take 1 capsule (500 mg total) by mouth 2 (two) times a day for 4 doses 4 capsule 10/12/19 25 2024 LORazepam (ATIVAN) 0.5 mg tablet Take 1 tablet (0.5 mg total) by mouth every 6 (six) hours as needed for anxiety 20 tablet 10/12/19 25 2024 Discontinued Active Problems Problem Noted Date Diagnosed Date Acute on chronic congestive heart failure, unspecified heart failure type 10/06/2024 Stage 3a chronic kidney disease 08/12/2024 Assessment [...] to cardiology Coronary artery disease invo lving [place] coronary artery of [place] heart without angina pectoris 12/12/2023 Assessment & [...] refilled today Patient needs referral to new receiving lead. Male hypogonadism 01/05/2020 Vitamin D deficiency 06/28/2019 [...] Encounters Date Type Department Care Team Description 10/14/2024 TCC Subsequent Outreach [facility] [address] [place] [id number] Alissa Lewis 10/07/2024 TCC Inpatient Enrollment [facility] [address] [place] [address] Alissa Lewis 10/06/2024 2:49 AM CDT - 10/11/2024 12:56 PM CDT Hospital Encounter [facility] [address] [place] [id number] Michael Escudero Jr., MD Medavaram, Atul, MD Dhillon, MD Anoop Hickman Mahmud Mustafa, MD Mustafa, Coco, DO Acute on chronic congestive heart failure, unspecified heart failure type (HCC) (Primary Dx); Cellulitis of right lower extremity; Amphetamine abuse (HCC); Elevated troponin; Pedal edema Discharge Disposition: Discharge to an Rehab facility 10/06/2024 TCC Initial Eligibility Review [facility] [address] [place] [address] Guillaume Butler RN 09/07/2024 Orders Only [facility] [address] [place] [phone] Jill Lundberg NP 09/02/2024 Orders Only [facility] [address] [place] [phone] Adria Martínez MD 08/11/2024 1:05 AM CDT - 08/13/2024 8:00 PM CDT Hospital Encounter [address] [phone] Kiel Oliveira MD Heath, MD Vashti Pierson, MD Kosta Uriarte, MD Agustin Vargas, MD Heath Lane, Debbi Chand MD Acute on chronic congestive heart failure, unspecified heart failure type (HCC) (Primary Dx); NITA (acute kidney injury) Discharge Disposition: Left Against Medical Advice from Last 3 Months Immunizations Immunization Administration [...] Tobacco: Never Tobacco Cessation:Counseling Given: Not Answered [facility] Utilities Answer Date Recorded In the past 12 months has th e electric, gas, oil, or water company threatened to shut off services in your home? No 10/06/2024 Social Connection and Isolation Panel [NHANES] A nswer Date Recorded In a typical week, how many times do you talk on the phone with family, friends, or neighbors? Twice a week 10/06/2024 How often do you get together with friends or re latives? Once a week 10/06/2024 How often do you attend voodoo or judaism serv ices? Never 10/06/2024 Do you belong to any clubs o r organizations such as voodoo groups, unions, fraternal or athletic groups, or school groups? No 10/06/2024 How often do you attend meet ings of the clubs or organizations you belong to? Never 10/06/2024 Are you , , di vorced, , never , or living with a partner? 10/06/2024 AUDIT-C Answer Date Recorded Q1: How often [...] food, housing, medical care, and heating? Hard 10/06/2024 PHQ-2 Answer Date Recorded PHQ-2 Total Score (If total score is 3 or more points, staff should administer the PHQ-9) 3 10/06/2024 Hunger Vital Sign Answer Date Recorded Within [...] from medical appointments or from getting medications? Yes 09/13 In the past 12 months, has l ack of transportation kept you from meetings, work, or from getting things needed for daily living? Yes 10/06/2024 PHQ-9 Answer Date Recorded PHQ-9 Total Score 12 10/06/2024 Housing Stability Vital Sign Answer Gabino e Recorded In the last 12 months, was t here a time when you were not able to pay the mortgage or rent on time? Yes 10/06/2024 In the past 12 months, how m any times have you moved where you were living? 1 10/06/2024 At any time in the past 12 m [facility], were you homeless or living in a half-way (including now)? Yes 10/06/2024 Personal Safety Answer Date Recorded Have you ever been in or are you currently in a harmful physical or emotional relationship or is someone making you feel afraid or unsafe? 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 Gender Identity Not on file Sexual Orientation Not on file Obstetrics History Last Filed Vital Signs Vital Sign Reading Time Taken Comments Blood Pressure 128/99 10/11/2024 7:42 AM CDT Pulse 96 10/11/2024 7:58 AM CDT Temperature 36.5 C (97.7 F) 10/11/2024 7:42 AM CDT Respiratory Rate 18 10/11/2024 7:58 AM CDT Oxygen Saturation 91% 10/11/2024 7:56 AM CDT Inhaled Oxygen Concentration - - Weight 93.6 kg (206 lb 6.4 oz) 10/11/2024 5:42 A M CDT Height 182.9 cm (6') 10/06/2024 5:49 AM CDT Body Mass Index 27.99 10/06/2024 5:49 AM CDT Plan of Treatment Health Maintenance Due Date Last Done Comments Colon Cancer Screening-Colonoscopy 1957 Hepatitis B Screening 1975 Zoster Vaccine (1 of 2) 2007 Pneumococcal vaccine 65+ (2 of 2 - PCV) 03/07/2010 03/07/2009, 11/03/2008 Well Visit 65+ 2022 Influenza Vaccine (#1) 2024 03/14/2003, 1998 Depression Screening 10/06/2025 10/06/2024, 10/06/2024, 08/10/2024, Additional history exists Fall Risk Assessment 10/11/2025 10/11/2024 Prostate Cancer Screening-PSA 12/11/2025 12/12/2023 DTaP/Tdap/Td Vaccine (4 - Td or Tdap) 07/26/2034 07/26/2024, 12/20/2023, 03/07/2013 Hepatitis C Screening Completed 10/06/2024 Procedures Procedure Name Priority Date/Time Associated Diagnosis Comments EGFR Routine 10/11/2024 5:26 AM CDT CBC WITHOUT DIFFERENTIAL Routine 10/11/2024 5:26 AM CDT BASIC METABOLIC PANEL Routine 10/11/2024 5:26 AM CDT EGFR Routine 10/10/2024 7:12 AM CDT MAGNESIUM Routine 10/10/2024 7:12 AM CDT CBC WITHOUT DIFFERENTIAL Routine 10/10/2024 7:12 AM CDT BASIC METABOLIC PANEL Routine 10/10/2024 7:12 AM CDT EGFR Routine 10/09/2024 11:53 AM CDT CBC WITHOUT DIFFERENTIAL Routine 10/09/2024 11:53 AM CDT BASIC METABOLIC PANEL Routine 10/09/2024 11:53 AM CDT EGFR Routine 10/08/2024 4:39 AM CDT MAGNESIUM Routine 10/08/2024 4:39 AM CDT CBC WITHOUT DIFFERENTIAL Routine 10/08/2024 4:39 AM CDT BASIC METABOLIC PANEL Routine 10/08/2024 4:39 AM CDT EGFR Routine 10/07/2024 4:18 AM CDT CREATINE KINASE (CK), TOTAL Routine 10/07/2024 4:18 AM CDT LIPID PANEL Routine 10/07/2024 4:18 AM CDT CBC WITHOUT DIFFERENTIAL Routine 10/07/2024 4:18 AM CDT BASIC METABOLIC PANEL Routine 10/07/2024 4:18 AM CDT US VEIN DUPLEX LOWER EXTREMITY BILATERAL COMPLETE IP Routine 10/06/2024 3:34 PM CDT POC BLOOD GAS AND CHEMISTRIES, ARTERIAL Routine 10/06/2024 11:38 AM CDT HEPATITIS PANEL, ACUTE Routine 10/06/2024 10:56 AM CDT HIV 1/2 ANTIBODY PLUS P24 ANTIGEN Routine 10/06/2024 10:56 AM CDT TROPONIN T HIGH-SENSITIVITY 6-HOUR Timed 10/06/2024 9:23 AM CDT TROPONIN T HIGH-SENSITIVITY 4-HR Timed 10/06/2024 6:40 AM CDT TROPONIN T HIGH-SENSITIVITY 2-HOUR Timed 10/06/2024 4:50 AM CDT BLOOD CULTURE STAT 10/06/2024 4:50 AM CDT BLOOD CULTURE STAT 10/06/2024 4:21 AM CDT DRUGS OF ABUSE SCREEN, URINE WITHOUT CONFIRMATION STAT 10/06/2024 3:58 AM CDT XR CHEST 1 VIEW ED 10/06/2024 3:01 AM CDT ECG 12-LEAD STAT 10/06/2024 2:42 AM CDT EGFR STAT 10/06/2024 2:40 AM CDT DIFFERENTIAL AUTO STAT 10/06/2024 2:4 0 AM CDT PRO B-TYPE NATRIURETIC PEPTIDE STAT 10/06/2024 2:40 AM CDT TROPONIN T HIGH-SENSITIVITY SERIES (BASELINE, 2HR, 4HR, 6HR) STAT 10/06/2024 2:40 AM CDT CBC WITH AUTO DIFFERENTIAL STAT 10/06/2024 2:40 AM CDT COMPREHENSIVE METABOLIC PANEL STAT 10/06/2024 2:40 AM CDT CARDIOLOGY DOCUMENT SCAN Routine 08/31/2024 10:54 AM [...] ECG 12-LEAD STAT 08/10/2024 11:56 PM CDT PSA SCREEN Routine 12/12/2023 10:00 AM CDT Screening PSA (prostate specific antigen) from Last 3 Months or Most Recently Relevant to Health Maintenance Results * (ABNORMAL) eGFR (10/11/2024 5:26 AM CDT) eGFR 50(L) >=60 mL/min/1. 73 m2 Comment: Interpretive Data [...] Current interpretive data was last reviewed 2021. Testing performed by: [address] [address] Blood 10/11/2024 5:26 AM CDT 10/11/2024 5:31 AM CDT us Danny Briseno MD LAB BLOOD ORDERABLES Final Res ult [facility] Department [place] [address] * (ABNORMAL) CBC without differential (10/11/2024 5:26 AM CDT) WBC 8.27 3.80 - 9.90 K/cumm Comment:Testing performed by : [address] [address] Hgb 14.9 13.0 - 17.5 g/dL [facility] Comment:Testing performed by : [address] [address] Hct 46.4 38.9 - 50.3 % [facility] Comment:Testing performed by : [address] [address] Plt 210 150 - 400 K/cumm [facility] Comment:Testing performed by : [address] [address] MPV 10.1 9.1 - 12.3 fL [facility] Comment:Testing performed by : [address] [address] RBC 4.82 4.30 - 5.80 M/cumm [facility] Comment:Testing performed by : [address] [address] MCV 96.3 81.3 - 96.4 fL [facility] Comment:Testing performed by : [address] [address] MCH 30.9 27.1 - 33.3 pg [facility] Comment:Testing performed by : [address] [address] MCHC 32.1(L) 32.3 - 35.7 g/dL [facility] Comment:Testing performed by : [address] [address] RDW CV 15.8(H) 11.1 - 14.9 % [facility] Comment:Testing performed by : [address] [address] RDW SD 55.4(H) 35.7 - 48.1 fL [facility] Comment:Testing performed by : [address] [address] NRBC abs 0.00 0.00 - 0.01 K/cumm [facility] Comment:Testing performed by : [address] [address] Blood 10/11/2024 5:26 AM CDT 10/11/2024 5:31 AM CDT us Dnany Briseno MD LAB BLOOD ORDERABLES Final Res ult [facility] Department of Laboratories [place], [place] [id number] * (ABNORMAL) Basic metabolic panel (10/11/2024 5:26 AM CDT) Sodium 137 135 - 145 mmol/L Comment:Testing performed by : [address] [address] Potassium, pl 4.8 3.3 - 4.9 mmol/L [facility] Comment:Testing performed by : [address] [address] Chloride 101 97 - 110 mmol/L [facility] Comment:Testing performed by : [address] [address] CO2 24 22 - 32 mmol/L [facility] Comment:Testing performed by : [address] [address] Anion gap 12 2 - 15 mmol/L [facility] Comment:Testing performed by : [address] [address] BUN 43(H) 6 - 25 mg/dL [facility] Comment:Testing performed by : [address] [address] Creatinine 1.53(H) 0.80 - 1.30 mg/dL [facility] Comment:Testing performed by : [address] [address] Glucose 88 70 - 199 mg/dL [facility] Comment: Interpretive Data Fasting glucose >/= 126 [...] Current interpretive data was last revised 2022. Testing performed by: [address] [address] Calcium 9.7 8.5 - 10.3 mg/dL [facility] Comment:Testing performed by : [address] [address] Blood 10/11/2024 5:26 AM CDT 10/11/2024 5:31 AM CDT us Danny Briseno MD LAB BLOOD ORDERABLES Final Res ult [facility] Department [place] [address] * (ABNORMAL) eGFR (10/10/2024 7:12 AM CDT) eGFR 51(L) >=60 mL/min/1. 73 m2 Comment: Interpretive Data [...] Current interpretive data was last reviewed 2021. Testing performed by: [address] [address] Blood 10/10/2024 7:12 AM CDT 10/10/2024 7:45 AM CDT us Danny Briseno MD LAB BLOOD ORDERABLES Final Res ult [facility] Department [place] [address] * (ABNORMAL) CBC without differential (10/10/2024 7:12 AM CDT) Pathologist [facility] WBC 8.68 3.80 - 9.90 K/cumm Comment:Testing performed by : [address] [address] Hgb 14.6 13.0 - 17.5 g/dL [facility] Comment:Testing performed by : [address] [address] Hct 44.7 38.9 - 50.3 % [facility] Comment:Testing performed by : [address] [address] Plt 232 150 - 400 K/cumm [facility] Comment:Testing performed by : [address] [address] MPV 10.3 9.1 - 12.3 fL [facility] Comment:Testing performed by : [address] [address] RBC 4.73 4.30 - 5.80 M/cumm [facility] Comment:Testing performed by : [address] [address] MCV 94.5 81.3 - 96.4 fL [facility] Comment:Testing performed by : [address], [address] MCH 30.9 27.1 - 33.3 pg [facility] Comment:Testing performed by : [address] [address] MCHC 32.7 32.3 - 35.7 g/dL [facility] Comment:Testing performed by : [address] [address] RDW CV 15.6(H) 11.1 - 14.9 % [facility] Comment:Testing performed by : [address], [address] RDW SD 53.5(H) 35.7 - 48.1 fL [facility] Comment:Testing performed by : [address] [address] NRBC abs 0.00 0.00 - 0.01 K/cumm [facility] Comment:Testing performed by : [address] [address] Blood 10/10/2024 7:12 AM CDT 10/10/2024 7:45 AM CDT us Danny Briseno MD LAB BLOOD ORDERABLES Final Res ult [facility] Department of Laboratories [place], [place] [id number] * Magnesium (10/10/2024 7:12 AM CDT) Pathologist [facility] Magnesium 2.4 1.4 - 2.5 mg/dL Comment:Testing performed by : [address] [address] Blood 10/10/2024 7:12 AM CDT 10/10/2024 7:45 AM CDT Medardo Kendall MD LAB BLOOD ORDERABLE S Final Result [facility] [address] [facility] Department [place] [address] * (ABNORMAL) Basic metabolic panel (10/10/2024 7:12 AM CDT) Pathologist [facility] Sodium 138 135 - 145 mmol/L Comment:Testing performed by : [address] [address] Potassium, pl 5.1(H) 3.3 - 4.9 mmol/L [facility] Comment:Testing performed by : [address] [address] Chloride 100 97 - 110 mmol/L [facility] Comment:Testing performed by : [address] [address] CO2 25 22 - 32 mmol/L [facility] Comment:Testing performed by : [address] [address] Anion gap 13 2 - 15 mmol/L [facility] Comment:Testing performed by : [address] [address] BUN 38(H) 6 - 25 mg/dL [facility] Comment:Testing performed by : [address] [address] Creatinine 1.49(H) 0.80 - 1.30 mg/dL [facility] Comment:Testing performed by : [address] [address] Glucose 83 70 - 199 mg/dL [facility] Comment: Interpretive Data Fasting glucose >/= 126 [...] Current interpretive data was last revised 2022. Testing performed by: [facility], [address] [place] [address]., [address] Calcium 9.8 8.5 - 10.3 mg/dL [facility] Comment:Testing performed by : [facility], [address] [place] [address]., [address] Blood 10/10/2024 7:12 AM CDT 10/10/2024 7:45 AM CDT us Danny Briseno MD LAB BLOOD ORDERABLES Final Res ult [facility] Department [place] [address] * eGFR (10/09/2024 11:53 AM CDT) eGFR 66 >=60 mL/min/1. 73 m2 Comment: Interpretive Data [...] Current interpretive data was last reviewed 2021. Testing performed by: [address] [address] Blood 10/09/2024 11:5 3 AM CDT 10/09/2024 11:57 AM CDT us Danny Briseno MD LAB BLOOD ORDERABLES Final Res ult [facility] Department [place] [address] * (ABNORMAL) CBC without differential (10/09/2024 11:53 AM CDT) WBC 7.74 3.80 - 9.90 K/cumm Comment:Testing performed by : [address] [address] Hgb 14.6 13.0 - 17.5 g/dL [facility] Comment:Testing performed by : [address] [address] Hct 44.9 38.9 - 50.3 % [facility] Comment:Testing performed by : [address] [address] Plt 196 150 - 400 K/cumm [facility] Comment:Testing performed by : [address] [address] MPV 9.8 9.1 - 12.3 fL [facility] Comment:Testing performed by : [address] [address] RBC 4.74 4.30 - 5.80 M/cumm [facility] Comment:Testing performed by : [address] [address] MCV 94.7 81.3 - 96.4 fL [facility] Comment:Testing performed by : [address] [address] MCH 30.8 27.1 - 33.3 pg [facility] Comment:Testing performed by : [address] [address] MCHC 32.5 32.3 - 35.7 g/dL [facility] Comment:Testing performed by : [address] [address] RDW CV 15.5(H) 11.1 - 14.9 % [facility] Comment:Testing performed by : [address] [address] RDW SD 53.1(H) 35.7 - 48.1 fL [facility] Comment:Testing performed by : [address] [address] NRBC abs 0.00 0.00 - 0.01 K/cumm [facility] Comment:Testing performed by : [address] [address] Blood 10/09/2024 11:5 3 AM CDT 10/09/2024 11:57 AM CDT us Danny Briseno MD LAB BLOOD ORDERABLES Final Res ult [facility] Department [place] [address] * (ABNORMAL) Basic metabolic panel (10/09/2024 11:53 AM CDT) Sodium 135 135 - 145 mmol/L Comment:Testing performed by : [address] [address] Potassium, pl 4.8 3.3 - 4.9 mmol/L [facility] Comment:Testing performed by : [address] [address] Chloride 100 97 - 110 mmol/L [facility] Comment:Testing performed by : [address] [address] CO2 25 22 - 32 mmol/L [facility] Comment:Testing performed by : [address] [address] Anion gap 10 2 - 15 mmol/L [facility] Comment:Testing performed by : [address] [address] BUN 31(H) 6 - 25 mg/dL [facility] Comment:Testing performed by : [address] [address] Creatinine 1.21 0.80 - 1.30 mg/dL [facility] Comment:Testing performed by : [address] [address] Glucose 132 70 - 199 mg/dL [facility] Comment: Interpretive Data Fasting glucose >/= 126 [...] Current interpretive data was last revised 2022. Testing performed by: [address] [address] Calcium 9.7 8.5 - 10.3 mg/dL [facility] Comment:Testing performed by : [address] [address] Blood 10/09/2024 11:5 3 AM CDT 10/09/2024 11:57 AM CDT us Danny Briseno MD LAB BLOOD ORDERABLES Final Res ult [facility] [facility] Department [place] [address] * eGFR (10/08/2024 4:39 AM CDT) eGFR 70 >=60 mL/min/1. 73 m2 Comment: Interpretive Data [...] Current interpretive data was last reviewed 2021. Testing performed by: [address] [address] Blood 10/08/2024 4:39 AM CDT 10/08/2024 5:28 AM CDT us Danny Briseno MD LAB BLOOD ORDERABLES Final Res ult [facility] Department of Laboratories [place], [place] [id number] * (ABNORMAL) CBC without differential (10/08/2024 4:39 AM CDT) WBC 7.77 3.80 - 9.90 K/cumm Comment:Testing performed by : [address] [address] Hgb 14.0 13.0 - 17.5 g/dL [facility] Comment:Testing performed by : [address] [address] Hct 43.5 38.9 - 50.3 % [facility] Comment:Testing performed by : [address] [address] Plt 206 150 - 400 K/cumm [facility] Comment:Testing performed by : [address] [address] MPV 10.0 9.1 - 12.3 fL [facility] Comment:Testing performed by : [address] [address] RBC 4.57 4.30 - 5.80 M/cumm [facility] Comment:Testing performed by : [address] [address] MCV 95.2 81.3 - 96.4 fL [facility] Comment:Testing performed by : [address], [address] MCH 30.6 27.1 - 33.3 pg [facility] Comment:Testing performed by : [address] [address] MCHC 32.2(L) 32.3 - 35.7 g/dL [facility] Comment:Testing performed by : [address], [address] RDW CV 15.4(H) 11.1 - 14.9 % [facility] Comment:Testing performed by : [address], [address] RDW SD 53.7(H) 35.7 - 48.1 fL [facility] Comment:Testing performed by : [address], [address] NRBC abs 0.00 0.00 - 0.01 K/cumm [facility] Comment:Testing performed by : [address], [address] Blood 10/08/2024 4:39 AM CDT 10/08/2024 5:30 AM CDT us Danny Briseno MD LAB BLOOD ORDERABLES Final Res ult Performing Organization Address [facility] de Phone Number [place] [id number] [facility] Department [place] [address] * Magnesium (10/08/2024 4:39 AM CDT) Magnesium 2.3 1.4 - 2.5 mg/dL Comment:Testing performed by : [address] [address] Blood 10/08/2024 4:39 AM CDT 10/08/2024 5:28 AM CDT us Medardo Kendall MD LAB BLOOD ORDERABLE S Final Result Performing Organization Address City/[facility]/ZIP Co de Phone Number [facility] [address] [facility] Department [place] [address] * Basic metabolic panel (10/08/2024 4:39 AM CDT) Sodium 135 135 - 145 mmol/L Comment:Testing performed by : [facility], [address] [place] [address], [place]., [address] Potassium, pl 4.6 3.3 - 4.9 mmol/L MARINO Comment:Testing performed by : [address], [place]., [address] Chloride 100 97 - 110 mmol/L MARINO Comment:Testing performed by : [address], [place]., [address] CO2 24 22 - 32 mmol/L MARINO Comment:Testing performed by : [address], [place]., [address] Anion gap 11 2 - 15 mmol/L MARINO Comment:Testing performed by : [address] [address] BUN 23 6 - 25 mg/dL MARINO Comment:Testing performed by : [address], [place]., [address] Creatinine 1.15 0.80 - 1.30 mg/dL MARINO Comment:Testing performed by : [address] [address] Glucose 103 70 - 199 mg/dL MARINO Comment: Interpretive Data Fasting glucose >/= 126 [...] Current interpretive data was last revised 2022. Testing performed by: [address], [place]., [address] Calcium 9.5 8.5 - 10.3 mg/dL MARINO Comment:Testing performed by : [facility], [address] [place] [address]., [address] Blood 10/08/2024 4:39 AM CDT 10/08/2024 5:28 AM CDT us Danny Briseno MD LAB BLOOD ORDERABLES Final Res ult Performing Organization Address [facility] Co de Phone Number MARINO [facility] [place] [address] * eGFR (10/07/2024 4:18 AM CDT) eGFR 66 >=60 mL/min/1. 73 m2 Comment: Interpretive Data [...] Current interpretive data was last reviewed 2021. Testing performed by: [facility], [address] [place] [address]., [address] Blood 10/07/2024 4:18 AM CDT 10/07/2024 4:30 AM CDT us Danny Briseno MD LAB BLOOD ORDERABLES Final Res ult Performing Organization Address City/[facility]/ZIP Co de Phone Number MARINO [address] [facility] [place] [address] * (ABNORMAL) CBC without differential (10/07/2024 4:18 AM CDT) [facility] WBC 6.86 3.80 - 9.90 K/cumm Comment:Testing performed by : [address] [address] Hgb 13.5 13.0 - 17.5 g/dL MARINO Comment:Testing performed by : [address], [address] Hct 42.4 38.9 - 50.3 % MARINO Comment:Testing performed by : [address], [address] Plt 168 150 - 400 K/cumm MARINO Comment:Testing performed by : [address], [address] MPV 9.4 9.1 - 12.3 fL MARINO Comment:Testing performed by : [address], [address] RBC 4.38 4.30 - 5.80 M/cumm MARINO Comment:Testing performed by : [address], [address] MCV 96.8(H) 81.3 - 96.4 fL MARINO Comment:Testing performed by : [address], [address] MCH 30.8 27.1 - 33.3 pg MARINO Comment:Testing performed by : [address], [address] MCHC 31.8(L) 32.3 - 35.7 g/dL MARINO Comment:Testing performed by : [address], [address] RDW CV 15.3(H) 11.1 - 14.9 % MARINO Comment:Testing performed by : [address], [address] RDW SD 55.0(H) 35.7 - 48.1 fL MARINO Comment:Testing performed by : [address], [address] NRBC abs 0.00 0.00 - 0.01 K/cumm MARINO Comment:Testing performed by : [address] [address] Blood 10/07/2024 4:18 AM CDT 10/07/2024 4:30 AM CDT us Danny Briseno MD LAB BLOOD ORDERABLES Final Res ult Performing Organization Address City/[facility] Co de Phone Number [address] [employer] [place] [address] * Creatine kinase (CK), total (10/07/2024 4:18 AM CDT) CK 170 40 - 300 Units/L Comment:Testing performed by : [address] [address] Blood 10/07/2024 4:18 AM CDT 10/07/2024 4:30 AM CDT us Medardo Kendall MD LAB BLOOD ORDERABLE S Final Result Performing Organization Address [facility] Co de Phone Number [address] [address] * (ABNORMAL) Lipid panel (10/07/2024 4:18 AM CDT) Cholesterol 108 30 - 199 mg/dL Comment: Interpretive Data Ages < or = 19 years Acceptable: <170 mg/dL Borderline high: 170-199 mg/dL High: >or= 200 mg/dL Ages > or = 20 years Desirable: <200 mg/dL Borderline high: 200-239 mg/dL High: >or= 240 mg/dL Literature References: 1. Expert Panel on Integrated Guidelines for Cardiovascular Health and Risk Reduction in Children and Adolescents. Pediatrics 2011;128:S213 2. NCEP Expert Panel. Circulation 2004;110:227 Current Interpretive Data was last revised on 2017. Testing performed by: [address] [address] Triglycerides 57 <=149 mg/dL MARINO Comment: Interpretive Data Ages < or = 9 years Acceptable: <75 mg/dL Borderline high: 75-99 mg/dL High: >or= 100 mg/dL Ages 10 to 20 years Acceptable: <90 mg/dL Borderline high: 90-129 mg/dL High: >or= 130 mg/dL Ages > or = 20 years Desirable: <150 mg/dL Borderline high: 150-199 mg/dL High: 200-499 mg/dL Very high: >or= 499 mg/dL Literature References: 1. Expert Panel on Integrated Guidelines for Cardiovascular Health and Risk Reduction in Children and Adolescents. Pediatrics 2011;128:S213 2. NCEP Expert Panel. Circulation 2004;110:227 Current Interpretive Data was last revised on 2017. Testing performed by: [address] [address] HDL 31(L) >=40 mg/dL MARINO Comment: Interpretive Data Ages < or = 19 years Acceptable: >45 mg/dL Borderline low: 40-45 mg/dL Low: <40 mg/dL Ages > or = 20 years Desirable: >or= 60 mg/dL Low: <40 mg/dL Literature References: 1. Expert Panel on Integrated Guidelines for Cardiovascular Health and Risk Reduction in Children and Adolescents. Pediatrics 2011;128:S213 2. NCEP Expert Panel. Circulation 2004;110:227 Current Interpretive Data was last revised on 2017. Testing performed by: [address] [address] LDL, calculated 64 <=129 mg/dL MARINO Comment: Interpretive Data Ages < or = 19 years Acceptable: <110 mg/dL Borderline high: 110-129 mg/dL High: >or= 130 mg/dL Ages > or = 20 years Optimal: <100 mg/dL Near optimal: 100-129 mg/dL Borderline high: 130-159 mg/dL High: >160 mg/dL Calculated using the Mak LDL-C estimating equation. This equation was implemented on 2023. Prior to this date LDL-C was estimated using the Friedewald equation. Literature References: 1. Expert Panel on Integrated Guidelines for Cardiovascular Health and Risk Reduction in Children and Adolescents. Pediatrics 2011;128:S213 2. NCEP Expert Panel. Circulation 2004;110:227 3. Corado M et al. ANGELES Cardiol. 2019August 12;5(5):540-548. doi: 10.1001/[email or web address] Current Interpretive Data was last revised on 2023. Testing performed by: [address] [address] Non-HDL Cholesterol 77 mg/dL MARINO OLEARY Comment: Interpretive Data Ages < or = 19 years Acceptable: <120 mg/dL Borderline high: 120-144 mg/dL High: >145 mg/dL Ages > or = 20 years When triglycerides are >200 mg/dL, Non-HDL cholesterol is a secondary target of therapy with treatment goals that are 30 mg/dL greater than the LDL cholesterol target. Literature References: 1. Expert Panel on Integrated Guidelines for Cardiovascular Health and Risk Reduction in Children and Adolescents. Pediatrics 2011;128:S213 2. NCEP Expert Panel. Circulation 2004;110:227 Current Interpretive Data was last revised on 2017. Testing performed by: [address] [address] Chol/HDL ratio 3 MARINO OLEARY Comment:Testing performed by : [address] [address] Blood 10/07/2024 4:18 AM CDT 10/07/2024 4:30 AM CDT Macrina Marc NP LAB BLOOD ORDERABLES Final Result MARINO [address] [facility] Department [place] [address] * Basic metabolic panel (10/07/2024 4:18 AM CDT) Sodium 138 135 - 145 mmol/L Comment:Testing performed by : [address] [address] Potassium, pl 3.8 3.3 - 4.9 mmol/L MARINO OLEARY Comment:Testing performed by : [address] [address] Chloride 101 97 - 110 mmol/L MARINO Comment:Testing performed by : [address] [place] [address] CO2 28 22 - 32 mmol/L MARINO Comment:Testing performed by : [address] [address] Anion gap 9 2 - 15 mmol/L MARINO Comment:Testing performed by : [address] [address] BUN 22 6 - 25 mg/dL MARINO Comment:Testing performed by : [address] [address] Creatinine 1.21 0.80 - 1.30 mg/dL MARINO Comment:Testing performed by : [address] [address] Glucose 105 70 - 199 mg/dL MARINO Comment: Interpretive Data Fasting glucose >/= 126 [...] Current interpretive data was last revised 2022. Testing performed by: [address] [address] Calcium 9.2 8.5 - 10.3 mg/dL MARINO Comment:Testing performed by : [address] [address] Blood 10/07/2024 4:18 AM CDT 10/07/2024 4:30 AM CDT us Danny Briseno MD LAB BLOOD ORDERABLES Final Res ult MARINO [address] [facility] Department of Laboratories [place], [place] [id number] * US Vein Duplex Lower Extremity Bilateral Complete (10/06/2024 3:34 PM CDT) Anatomical Region Laterality Modality Vascular Bilateral Ultrasound 10/06/2024 2:46 PM CDT Narrative 10/08/2024 12:45 PM CDT Lower Extremity Venous Report Patient Name: CELINA PAK W : 1955 (69y 4m) Gender: M Study Date: 10/06/2024 02:46:53 PM Weight Yardage Checker: Tim Jordan Location: [id number] Order Provider: DANNY BRISENO Quality: Adequate Ref Provider: DANNY BRISENO PROCEDURES: Vascular Report: A non-invasive vascular imaging study of the bilateral lower extremity veins was performed using B-mode ultrasound, color flow, and spectral Doppler. INDICATIONS: Bilateral leg swelling with redness R>L. COMPARISONS: No prior exams. FINDINGS: Bilateral: Negative for deep and superficial vein thrombosis in the lower extremities bilaterally. Right: Normal compressibility and color filling, spontaneous and phasic flow, and response to distal augmentation is demonstrated in the right common femoral vein, saphenofemoral junction, proximal femoral vein, mid femoral vein, distal femoral vein, profunda vein, popliteal vein, posterior tibial veins and peroneal veins. Left: Normal compressibility and color filling, spontaneous and phasic flow, and response to distal augmentation is demonstrated in the left common femoral vein, saphenofemoral junction, proximal femoral vein, mid femoral vein, distal femoral vein, profunda vein, popliteal vein, posterior tibial veins and peroneal veins. Provider Notification: Prelim results entered into [facility] study notes. CONCLUSIONS: 1. There is no evidence of deep vein thrombosis in the lower extremities bilaterally. ATTESTATION: I have reviewed and interpreted the pertinent images and measurements of this study. I attest to the conclusions in the final report that is provided above. Electronically Signed By: Rogelio Damon MD 10/08/2024 12:12:35 PM CDT Procedure Note Rogelio Damon MD - 10/08/2024 Lower Extremity Venous Report Patient Name: CELINA PAK W : 1955 (69y 4m) Gender: M Study Date: 10/06/2024 02:46:53 PM Weight Yardage Checker: Tim Jordan Location: [id number] Order Provider: DANNY BRISENO Quality: Adequate Ref Provider: DANNY BRISENO PROCEDURES: Vascular Report: A non-invasive vascular imaging study of the bilaterallower extremity veins was performed using B-mode ultrasound, color flow, and spectralDoppler. INDICATIONS: Bilateral leg swelling with redness R>L. COMPARISONS: No prior exams. FINDINGS: Bilateral: Negative for deep and superficial vein thrombosis in the lowerextremities bilaterally. Right: Normal compressibility and color filling, spontaneous and phasicflow, and response to distal augmentation is demonstrated in the right commonfemoral vein, saphenofemoral junction, proximal femoral vein, mid femoral vein, distalfemoral vein, profunda vein, popliteal vein, posterior tibial veins and peronealveins. Left: Normal compressibility and color filling, spontaneous and phasicflow, and response to distal augmentation is demonstrated in the left common femoral vein,saphenofemoral junction, proximal femoral vein, mid femoral vein, distal femoral vein,profunda vein, popliteal vein, posterior tibial veins and peroneal veins. Provider Notification: Prelim results entered into Epic study notes. CONCLUSIONS: 1. There is no evidence of deep vein thrombosis in the lower extremitiesbilaterally. ATTESTATION: I have reviewed and interpreted the pertinent images and measurements ofthis study. I attest to the conclusions in the final report that is provided above. Electronically Signed By: Rogelio Damon MD 10/08/2024 12:12:35 PM CDT us Danny Briseno MD IMG US PROCEDURES Final Result * (ABNORMAL) POC Blood Gas and Chemistries, Arterial - (10/06/2024 11:38 AM CDT) pH, art POC 7.50(H) 7.35 - 7.45 Comment:Testing performed by : [address], [address] pCO2, art POC 43 35 - 45 mmHg [facility] Comment:Testing performed by : [address] [address] pO2, art POC 98 83 - 108 mmHg [facility] Comment:Testing performed by : [address] [address] HCO3, art (Calc) POC 34(H) 20 - 30 mmol/L [facility] Comment:Testing performed by : [address] [address] Base excess, art POC 9 mmol/L [facility] Comment: Interpretive Data No reference range established. Current interpretive data was last revised 2019. Testing performed by: [address] [address] Blood 10/06/2024 11:3 8 AM CDT 10/06/2024 11:38 AM CDT us Medardo Kendall MD LAB POCT ORDERABLES - DEVICE Final Result [facility] [address] [facility] Department of [employer] [place] [address] * HIV 1/2 Antibody plus p24 Antigen Blood (10/06/2024 10:56 AM CDT) Pathologist [facility] HIV 1/2 ab + p24 ag Nonreactive Nonreactive Comment:Nonreactive for HIV- 1 antigen and HIV-1/HIV-2 antibodies. No laboratory evidence of HIV infection. If acute HIV infection is suspected, consider testing for HIV-1 RNA. Current interpretive data was last revised on 21. Blood 10/06/2024 10:5 6 AM CDT 10/06/2024 12:24 PM CDT Medardo Kendall MD LAB MICROBIOLOGY - GENERAL ORDERABLES Final Result Performing Organization Address City/State/[facility] Co de Phone Number [facility] [address] [facility] of [employer] [place] [address] * Hepatitis panel, acute Blood (10/06/2024 10:56 AM CDT) Pathologist [facility] Hep A IgM Nonreactive Nonreactive Comment: Interpretive Data: If Hep A IgM Ab is reported as Equivocal, a new sample should be drawn in two weeks for testing. Current interpretive data was last revised on 19. Hep B core IgM Nonreactive Nonreactive [facility] Comment: Interpretive Data If HepB Core IgM Ab is reported as Equivocal, a new sample should be drawn in two weeks for testing. Current interpretive data was last revised on 19. Hep C Ab Nonreactive Nonreactive [facility] Comment: Antibodies to HCV not detected. Does NOT exclude the possibility of recent exposure to HCV. Current interpretive data was last revised on 21 Interpretive Data Nonreactive: Antibodies to HCV not detected. Does NOT exclude the possibility of recent exposure to HCV. Equivocal: Equivocal for HCV antibodies. Supplemental molecular testing will be automatically performed to determine infection status in accordance with current CDC screening recommendations. Reactive: Positive for HCV antibodies. This may represent current or past HCV infection. Supplemental molecular testing will be automatically performed to determine current infection status in accordance with current CDC screening recommendations. Interpretive data was last revised on 2019. HepBsAg Nonreactive Nonreactive MARINO Blood 10/06/2024 10:5 6 AM CDT 10/06/2024 12:24 PM CDT Medardo Kendall MD LAB MICROBIOLOGY - GENERAL ORDERABLES Final Result Performing Organization Address City/[facility]/ZIP Co de Phone Number MARINO [address] [address] * (ABNORMAL) Troponin T high-sensitivity 6-hour (10/06/2024 9:23 AM CDT) Trop T hs 34(H) <=22 ng/L Comment: Interpretive Data For further hscTnT resources including the diagnostic algorithm and an aid in interpretation, copy and paste this link: https://nrl.testcatalog.org/show/hsTrop Current Interpretive Data last revised 2020. Testing performed by: [facility], [address] [place] [address]., [address] Trop T hs delta -3 ng/L MARINO Comment:Testing performed by : [facility], [address] [place] [address]., [address] Trop T hs interp Insignificant MARINO Comment:Testing performed by : [facility], [address] [place] [address]., [address] Blood 10/06/2024 9:23 AM CDT 10/06/2024 9:42 AM CDT us Michael Escudero Jr., MD LAB BLOOD ORDERABLES Fi nal Result Performing Organization Address [facility]/ZIP Co de Phone Number MARINO [address] [address] * (ABNORMAL) Troponin T high-sensitivity 4-hour (10/06/2024 6:40 AM CDT) Trop T hs 31(H) <=22 ng/L Comment: Interpretive Data For further hscTnT resources including the diagnostic algorithm and an aid in interpretation, copy and paste this link: https://nrl.[email or web address]/show/hsTrop Current Interpretive Data last revised 2020. Testing performed by: [facility], [address] [place] [address]., [address] Trop T hs delta -6 ng/L MARINO Comment:Testing performed by : [address] [address] Trop T hs interp Equivocal MARINO Comment:Testing performed by : [address] [address] Blood 10/06/2024 6:40 AM CDT 10/06/2024 7:09 AM CDT us Michael Escudero Jr., MD LAB BLOOD ORDERABLES Fi nal Result Performing Organization Address [facility] Phone Number ROSELYNKYLAH [address] [facility], [place] [id number] * (ABNORMAL) Troponin T high-sensitivity 2-hour (10/06/2024 4:50 AM CDT) Trop T hs 31(H) <=22 ng/L Comment: Interpretive Data For further hscTnT resources including the diagnostic algorithm and an aid in interpretation, copy and paste this link: https://nrl.[email or web address]/show/hsTrop Current Interpretive Data last revised 2020. Testing performed by: [address] [address] Trop T hs delta -6 ng/L MARINO Comment:Testing performed by : [address] [address] Trop T hs interp Equivocal MARINO Comment:Testing performed by : [address] [address] Blood 10/06/2024 4:50 AM CDT 10/06/2024 4:57 AM CDT us Michael Escudero Jr., MD LAB BLOOD ORDERABLES Fi nal Result Performing Organization Address [facility]/ZIP Co de Phone Number MARINO [address] [facility] Department of [employer] ([employer]) [place] [address] * Blood culture Blood (10/06/2024 4:50 AM CDT) Report Final Report: No growth Comment:Testing performed by : [facility], [address] [facility], [place]., [address] Blood 10/06/2024 4:50 AM CDT 10/06/2024 8:22 AM CDT Narrative MARINO - 10/10/2024 12:00 PM CDT Collection->Peripheral 1. Blood cultures are incubated for 4 days on a continuously monitored blood culture system. The first report of a negative culture is issued within 24 hours of receipt of the specimen in the laboratory. 2. Positive culture results are reported as soon as they are detected. 3. The most important factor for detection of microbes in the setting of bloodstream infection is the volume of blood submitted for culture. Failure to collect an optimal blood volume can result in false negative blood cultures. 4. For pediatric patients, the recommended blood volume to collect follows a weight based strategy. See the electronic test catalog for collection instructions. 5. For positive blood cultures, a rapid molecular test may be performed for organism identification using the chirag ePlex blood culture identification panel for gram positive (BCID-GP) and gram negative (BCID-GN) organisms. This nucleic acid amplification test detects microbial DNA in positive blood culture broth. This assay has been cleared by the [place] Food and Drug Administration and its performance characteristics have been verified by the [facility] Microbiology Laboratory. For questions about this culture, contact the Microbiology Laboratory at [phone]. Interpretive data was last revised on 24. us Michael Escudero Jr., MD LAB MICROBIOLOGY - GENE RAL ORDERABLES Final Result Performing Organization Address City/[facility] Co de Phone Number MARINO [address] [facility] Department of [employer] ([employer]) [place] [address] * Blood culture Blood (10/06/2024 4:21 AM CDT) Report Final Report: No growth Comment:Testing performed by : [facility], [address] [facility], [place]., [address] Blood 10/06/2024 4:21 AM CDT 10/06/2024 8:22 AM CDT Narrative MARINO OLEARY - 10/10/2024 12:00 PM CDT Collection->Peripheral 1. Blood cultures are incubated for 4 days on a continuously monitored blood culture system. The first report of a negative culture is issued within 24 hours of receipt of the specimen in the laboratory. 2. Positive culture results are reported as soon as they are detected. 3. The most important factor for detection of microbes in the setting of bloodstream infection is the volume of blood submitted for culture. Failure to collect an optimal blood volume can result in false negative blood cultures. 4. For pediatric patients, the recommended blood volume to collect follows a weight based strategy. See the electronic test catalog for collection instructions. 5. For positive blood cultures, a rapid molecular test may be performed for organism identification using the chirag ePlex blood culture identification panel for gram positive (BCID-GP) and gram negative (BCID-GN) organisms. This nucleic acid amplification test detects microbial DNA in positive blood culture broth. This assay has been cleared by the [place] Food and Drug Administration and its performance characteristics have been verified by the [facility] Laboratory. For questions about this culture, contact the Microbiology Laboratory at [phone]. Interpretive data was last revised on 24. Michael Escudero Jr., MD LAB MICROBIOLOGY - [facility] ORDERABLES Final Result MARINO [address] [facility] Department [place] [address] * (ABNORMAL) Drugs of Abuse Screen, Urine without Confirmation (10/06/2024 3:58 AM CDT) [facility] Amphetamine, ur Screen Positive, presumptive (A) CutOff 500ng/mL Comment: Interpretive Data - Amphetamines: Samples containing greater than 500 ng/mL d-methamphetamine or other cross-reacting amphetamine compounds are reported as positive. Amphetamine immunoassays are subject to significant false positive rates due to cross-reactivity of non-amphetamine drugs. Confirmatory testing required for definitive results. Current Interpretive Data was last reviewed 2022. Testing performed by: [facility], [address] [place] [address]., [address] Barbiturates, ur Not Detected CutOff 200ng/mL [facility] Comment: Interpretive Data - Barbiturates: Samples containing greater than 200 ng/mL secobarbital or other cross-reacting barbiturate compounds are reported as positive. False positive and false negative results are possible. Confirmatory testing required for definitive results. Current Interpretive Data was last reviewed 2022. Testing performed by: [facility], [address] [place] [address], [place]., [address] Benzodiazepines, ur Screen Positive, presumptive (A) CutOff 100ng/mL [facility] Comment: Interpretive Data - Benzodiazepines: Samples containing greater than 100 ng/mL nordiazepam or other cross-reacting compounds are reported as positive. False positive and false negative results are possible. Confirmatory testing required for definitive results. Current Interpretive Data was last reviewed 2022. Testing performed by: [facility], [address] [place] [address]., [address] Cannabinoids, ur Not Detected CutOff 50 ng/mL [facility] Comment: Interpretive Data - Cannabinoids: Samples containing greater than 50 ng/mL delta-9 THC -COOH or other cross- reacting compounds are reported as positive. False positive and false negative results are possible. Confirmatory testing required for definitive results. Current Interpretive Data was last reviewed 2022. Testing performed by: [address] [address] Cocaine, ur Not Detected CutOff 150ng/mL [facility] Comment: Interpretive Data - Cocaine: Samples containing greater than 150 ng/mL benzoylecgonine or other cross- reacting compounds are reported as positive. False positive and false negative results are possible. Confirmatory testing required for definitive results. Current Interpretive Data was last reviewed 2022. Testing performed by: [address] [address] Fentanyl, Ur Not Detected CutOff 5 ng/mL [facility] Comment: Interpretive Data - Fentanyl: Samples containing greater than 1 ng/mL fentanyl or other cross-reacting fentanyl compounds are reported as positive. False positive and false negative results are possible. Confirmatory testing required for definitive results. Current Interpretive Data was last reviewed 2022. Testing performed by: [address] [address] Methadone, ur Not Detected CutOff 300ng/mL [facility] Comment: Interpretive Data - Methadone: Samples containing greater than 300 ng/mL d,l-methadone or other cross-reacting compounds are reported as positive. False positive and false negative results are possible. Confirmatory testing required for definitive results. Current Interpretive Data was last reviewed 2022. Testing performed by: [address] [address] Opiates, ur Not Detected CutOff 300ng/mL [facility] Comment: Interpretive Data - Opiates: Samples containing greater than 300 ng/mL morphine or other cross-reacting compounds are reported as positive. False positive and false negative results are possible. Confirmatory testing required for definitive results. Current Interpretive Data was last reviewed 2022. Testing performed by: [address] [address] Oxycodone, ur Not Detected CutOff 100ng/mL [facility] Comment: Interpretive Data - Oxycodone: Samples containing greater than 100 ng/mL oxycodone or other cross-reacting compounds are reported as positive. False positive and false negative results are possible. Confirmatory testing required for definitive results. Current Interpretive Data was last reviewed 2022. Testing performed by: [address] [address] Phencyclidine, ur Not Detected CutOff 25 ng/mL [facility] Comment: Interpretive Data - Phencyclidine: Samples containing greater than 25 ng/mL phencyclidine or other cross-reacting compounds are reported as positive. False positive and false negative results are possible. Confirmatory testing required for definitive results. Current Interpretive Data was last reviewed 2022. Testing performed by: [address] [address] Urine Creatinine 182 mg/dL [facility] Comment: Interpretive Data Urine Creatinine: < 10 mg/dL is extremely dilute = or > 10 but < 20 mg/dL is dilute = or > 20 mg/dL is normal Current Interpretive Data was last revised on 2017. Testing performed by: [facility], [address] [place] [address], [place]., [address] Urine 10/06/2024 3:58 AM CDT 10/06/2024 4:02 AM CDT Narrative [facility] - 10/06/2024 4:28 AM CDT Drug of Abuse screening is performed by immunoassay for medical purposes only. This is not to be used for Pain Management purposes. us Michael Escudero Jr., MD LAB URINE ORDERABLES Fi nal Result [facility] [address] [facility] Department [place] [address] * XR Chest 1 Vw Portable (if patient condition/safety warrant portable) (10/06/2024 3:01 AM CDT) Anatomical Region Laterality Modality Body, Chest N/A Computed Radiogr aphy 10/06/2024 3:26 AM CDT Narrative 10/06/2024 3:27 AM CDT EXAM DESCRIPTION: XR CHEST 1 VIEW REASON FOR STUDY: Shortness of breath Patient has history of CHF, COPD, takes lasix every morning. States he has swelling to BLE for some time, States right leg has doubled in size in the past 24 hours. Reports this evening he has had some increased shortness of breath as well. TECHNIQUE: Single radiographic view of the chest. COMPARISON: Chest x-ray of August 11, 2024. FINDINGS: LUNGS/PLEURA: No focal consolidation or pneumothorax. No pleural effusion. There is no significant change as compared to previous study. HEART/MEDIASTINUM: Cardiac silhouette is normal. Remaining mediastinal silhouettes are unremarkable. HARDWARE/LINES/TUBES: EKG leads overlie the film. BONES: No acute findings. IMPRESSION: No acute cardiopulmonary abnormality. THIS IS AN ELECTRONICALLY VERIFIED FINAL REPORT 10/06/2024 3:27 AM - Electronically signed by Molly Young M.D. SN: SN Report ID: [id number] Reading Location: [id number] Procedure Note Molly Young MD - 10/06/2024 EXAM DESCRIPTION: XR CHEST 1 VIEW REASON FOR STUDY: Shortness of breath Patient has history of CHF, COPD, takes lasix every morning. States hehas swelling to BLE for some time, States right leg has doubled in size inthe past 24 hours. Reports this evening he has had some increased shortness of breath as well. TECHNIQUE: Single radiographic view of the chest. COMPARISON: Chest x-ray of August 11, 2024. FINDINGS: LUNGS/PLEURA: No focal consolidation or pneumothorax. Nopleural effusion. There is no significant change as compared to previous study. HEART/MEDIASTINUM: Cardiac silhouette is normal. Remaining mediastinal silhouettes are unremarkable. HARDWARE/LINES/TUBES: EKG leads overlie the film. BONES: No acute findings. IMPRESSION: No acute cardiopulmonary abnormality. THIS IS AN ELECTRONICALLY VERIFIED FINAL REPORT 10/06/2024 3:27 AM - Electronically signed by Molly Young M.D. SN: SN Report ID: [id number] Reading Location: [id number] Michael Escudero Jr., MD IMG XR PROCEDURES Final Result * ECG 12 lead (10/06/2024 2:42 AM CDT) Ventricular Rate EKG/Min 101 BPM [facility] Atrial Rate 101 BPM [facility] WY-Interval (MSEC) 174 ms [facility] QRS-Interval (MSEC) 118 ms [facility] QT-Interval (MSEC) 388 ms [facility] QTc 503 ms [facility] P Bethel 58 degrees [facility] R Bethel -19 degrees [facility] T Bethel 141 degrees [facility] Diagnosis Sinus tachycardia Possible Left atrial enlargement Left ventricular hypertrophy with QRS widening and repolarization abnormality Abnormal ECG When compared with ECG of 04-NOV-2023 08:09, Vent. rate has increased BY 43 BPM Confirmed by CAITLIN BOATENG M.D. ([id number]) on 10/07/2024 3:20:55 PM [facility] 10/06/2024 2:42 AM CDT 10/07/2024 3:20 PM CDT us Michael Escudero Jr., MD ECG ORDERABLES Final R esult Performing Organization Address City/[facility] Co de Phone Number [facility] * (ABNORMAL) Troponin T high-sensitivity series (baseline, 2hr, 4hr, 6hr) (10/06/2024 2:40 AM CDT) Trop T hs 37(H) <=22 ng/L Comment: Interpretive Data For further hscTnT resources including the diagnostic algorithm and an aid in interpretation, copy and paste this link: https://nrl.testcatalog.org/show/hsTrop Current Interpretive Data last revised 2020. Testing performed by: [facility], [address] [place] [address]., [id number] Blood 10/06/2024 2:40 AM CDT 10/06/2024 2:43 AM CDT us Michael Escudero Jr., MD LAB BLOOD ORDERABLES Fi nal Result Performing Organization Address [facility] Co de Phone Number [facility] [address] [facility] Department [place] [address] * (ABNORMAL) eGFR (10/06/2024 2:40 AM CDT) eGFR 54(L) >=60 mL/min/1. 73 m2 Comment: Interpretive Data [...] of Race in Diagnosing Kidney Disease, JASN 202). The CKD-EPI equation should not be used for patients with unstable renal function and has not been validated in children and those over 70. Current interpretive data was last reviewed 2021. Testing performed by: [address] [address] Blood 10/06/2024 2:40 AM CDT 10/06/2024 2:43 AM CDT us Michael Escudero Jr., MD LAB BLOOD ORDERABLES Fi nal Result [facility] Department [place] [address] * (ABNORMAL) Differential, auto (10/06/2024 2:40 AM CDT) Neutrophil abs 3.88 1.50 - 6.50 K/cumm Comment:Testing performed by : [address] [address] Imm gran abs 0.01 0.00 - 0.10 K/cumm [facility] Comment:Testing performed by : [address] [address] Lymphocyte abs 1.99 0.80 - 3.30 K/cumm [facility] Comment:Testing performed by : [address] [address] Monocyte abs 0.61 0.20 - 0.80 K/cumm [facility] Comment:Testing performed by : [address] [address] Eosinophil abs 0.54(H) 0.00 - 0.50 K/cumm [facility] Comment:Testing performed by : [address] [address] Basophil abs 0.06 0.00 - 0.10 K/cumm [facility] Comment:Testing performed by : [address] [address] Neutrophil pct 54.8 % [facility] Comment: Interpretive Data Percent cell count reference ranges are not reported, since discordance with absolute values may lead to misinterpretation of CBC data. Current Interpretive Data was last revised on 2017. Testing performed by: [address] [address] Imm gran pct 0.1 % [facility] Comment: Interpretive Data Percent cell count reference ranges are not reported, since discordance with absolute values may lead to misinterpretation of CBC data. Current Interpretive Data was last revised on 2017. Testing performed by: [address] [address] Lymphocyte pct 28.1 % [facility] Comment: Interpretive Data Percent cell count reference ranges are not reported, since discordance with absolute values may lead to misinterpretation of CBC data. Current Interpretive Data was last revised on 2017. Testing performed by: [address] [address] Monocyte pct 8.6 % [facility] Comment: Interpretive Data Percent cell count reference ranges are not reported, since discordance with absolute values may lead to misinterpretation of CBC data. Current Interpretive Data was last revised on 2017. Testing performed by: [address] [address] Eosinophil pct 7.6 % [facility] Comment: Interpretive Data Percent cell count reference ranges are not reported, since discordance with absolute values may lead to misinterpretation of CBC data. Current Interpretive Data was last revised on 2017. Testing performed by: [address] [address] Basophil pct 0.8 % [facility] Comment: Interpretive Data Percent cell count reference ranges are not reported, since discordance with absolute values may lead to misinterpretation of CBC data. Current Interpretive Data was last revised on 2017. Testing performed by: [address] [address] Blood 10/06/2024 2:40 AM CDT 10/06/2024 2:43 AM CDT us Michael Escudero Jr., MD LAB BLOOD ORDERABLES Fi nal Result [facility] [address] [facility] Department [place] [address] * (ABNORMAL) Pro B-type natriuretic peptide (10/06/2024 2:40 AM CDT) NT-proBNP 10,839(H) <=300 pg/mL Comment: Interpretive Comments: A. Dyspnea [...] 225. Interpretive Data Last Revised Date: 2017. Testing performed by: [facility], [address] [place] [address]., [address] Blood 10/06/2024 2:40 AM CDT 10/06/2024 2:43 AM CDT us Michael Escudero Jr., MD LAB BLOOD ORDERABLES Fi nal Result [facility] [address] [facility] Department [place] [address] * (ABNORMAL) CBC with auto differential (10/06/2024 2:40 AM CDT) [facility] Signature WBC 7.09 3.80 - 9.90 K/cumm Comment:Testing performed by : [address] [address] Hgb 12.8(L) 13.0 - 17.5 g/dL [facility] Comment:Testing performed by : [address] [address] Hct 40.4 38.9 - 50.3 % [facility] Comment:Testing performed by : [address] [address] Plt 175 150 - 400 K/cumm [facility] Comment:Testing performed by : [address] [address] MPV 9.4 9.1 - 12.3 fL [facility] Comment:Testing performed by : [address] [address] RBC 4.13(L) 4.30 - 5.80 M/cumm [facility] Comment:Testing performed by : [address] [address] MCV 97.8(H) 81.3 - 96.4 fL [facility] Comment:Testing performed by : [address] [address] MCH 31.0 27.1 - 33.3 pg [facility] Comment:Testing performed by : [address] [address] MCHC 31.7(L) 32.3 - 35.7 g/dL [facility] Comment:Testing performed by : [address] [address] RDW CV 15.4(H) 11.1 - 14.9 % [facility] Comment:Testing performed by : [address], [address] RDW SD 55.1(H) 35.7 - 48.1 fL [facility] Comment:Testing performed by : [address] [address] NRBC abs 0.00 0.00 - 0.01 K/cumm [facility] Comment:Testing performed by : [address] [address] Blood 10/06/2024 2:40 AM CDT 10/06/2024 2:43 AM CDT us Michael Escudero Jr., MD LAB BLOOD ORDERABLES Fi nal Result [facility] Department [place] [address] * (ABNORMAL) Comprehensive metabolic panel (10/06/2024 2:40 AM CDT) Sodium 142 135 - 145 mmol/L Comment:Testing performed by : [address] [address] Potassium, pl 3.9 3.3 - 4.9 mmol/L [facility] Comment:Testing performed by : [address] [address] Chloride 104 97 - 110 mmol/L [facility] Comment:Testing performed by : [address] [address] CO2 30 22 - 32 mmol/L [facility] Comment:Testing performed by : [address] [address] Anion gap 8 2 - 15 mmol/L [facility] Comment:Testing performed by : [address] [address] BUN 19 6 - 25 mg/dL [facility] Comment:Testing performed by : [address] [address] Creatinine 1.43(H) 0.80 - 1.30 mg/dL [facility] Comment:Testing performed by : [address] [address] Glucose 90 70 - 199 mg/dL [facility] Comment: Interpretive Data Fasting glucose >/= 126 [...] Current interpretive data was last revised 2022. Testing performed by: [address] [address] Calcium 9.4 8.5 - 10.3 mg/dL [facility] Comment:Testing performed by : [address] [address] Bilirubin, total 0.8 0.1 - 1.2 mg/dL [facility] Comment:Testing performed by : [address] [address] Protein, pl 7.2 6.5 - 8.5 g/dL [facility] Comment:Testing performed by : [address] [address] Albumin 3.8 3.5 - 5.0 g/dL [facility] Comment:Testing performed by : [address] [address] Alk phos 93 40 - 130 Units/L [facility] Comment:Testing performed by : [address] [address] ALT 30 7 - 55 Units/L [facility] Comment:Testing performed by : [address] [address] AST 40 10 - 50 Units/L [facility] Comment:Testing performed by : [address] [address] Blood 10/06/2024 2:40 AM CDT 10/06/2024 2:43 AM CDT Michael Escudero Jr., MD LAB BLOOD ORDERABLES Fi nal Result [facility] [address] [facility] Department [place] [address] * Cardiology Document Scan (08/31/2024 10:54 AM [...] MD LAB BLOOD ORDERABLES Final R esult [facility] [place] [address] * (ABNORMAL) Basic metabolic panel (08/13/2024 4:30 AM CDT) [facility] Sodium 140 135 - 145 mmol/L Potassium, pl 3.7 3.3 - 4.9 mmol/L [facility] Chloride 101 97 - 110 mmol/L [facility] CO2 33(H) 22 - 32 mmol/L [facility] Anion gap 6 2 - 15 mmol/L [facility] BUN 35(H) 6 - 25 mg/dL [facility] Creatinine 1.35(H) 0.80 - 1.30 mg/dL [facility] Glucose 125 70 - 199 mg/dL [facility] Comment: Interpretive Data Fasting glucose >/= [...] 2022. Calcium 9.2 8.5 - 10.3 mg/dL [facility] Blood 08/13/2024 4:30 AM CDT 08/13/2024 5:41 AM CDT us Debbi Joe MD LAB BLOOD ORDERABLES Final R esult Performing Organization Address City/[facility]/ZIP Co de Phone Number [facility] [place] [address] * TRANSTHORACIC ECHO (TTE) COMPLETE W DOPPLER/CF W CONTRAST (08/12/2024 11:33 AM CDT) EF Mod BP 27 % CONS SCIMAGE Anatomical Region Laterality Modality Ultrasound 08/12/2024 10:2 4 AM CDT Narrative 08/12/2024 5:51 PM CDT [facility] [place] [address] Transthoracic Echocardiographic Report Patient Name: CELINA PAK W : 1955 (69y 2m) Gender: M Study Date: 08/12/2024 10:24:42 AM Ht(Inch): 72 Wt(Lb): 212.96 BSA: 2.22 Weight Yardage Checker: Silva Angela Location: [id number] Order Provider: ALIYA VELEZ Heart Rate: 90 [...] Celina Rinaldi MD PhD - 08/12/2024 [facility] [place] [address] Transthoracic Echocardiographic Report Patient Name: CELINA PAK W : 1955 (69y 2m) Gender: M Study Date: 08/12/2024 10:24:42 AM Ht(Inch): 72 Wt(Lb): 212.96 BSA: 2.22 Weight Yardage Checker: Silva Angela Location: [id number] Order Provider:ALIYA VELEZ Heart Rate: 90 BMI: [...] LA Length 4C 6.60 cm MV Decel [id number] msec [ 104.00 - 258.00 ] LA [...] mmHg RA Volume Index 50.89 ml/m2 MR UYP376.1 cm RVOT Diam 4.90 cm TR Peak [...] Result * Lactate (08/12/2024 2:57 AM CDT) Pathologist [facility] Lactate 0.8 0.7 - 2.0 mmol/L Blood 08/12/2024 2:57 AM CDT 08/12/2024 3:18 AM CDT Aliya Velez MD LAB BLOOD ORDERABLES Fi nal Result [facility] [place] [address] * (ABNORMAL) eGFR (08/11/2024 9:17 PM CDT) Pathologist [facility] eGFR 47(L) >=60 mL/min/1. 73 m2 Comment: [...] ORDERABLES Fi nal Result Performing Organization Address City/[facility] Co de Phone Number [facility] Department of [employer] [place] [address] * Magnesium (08/11/2024 9:17 PM CDT) [facility] Magnesium 1.9 1.4 - 2.5 mg/dL Blood 08/11/2024 9:17 PM CDT 08/11/2024 9:51 PM CDT Aliya Velez MD LAB BLOOD ORDERABLES Fi nal Result Performing Organization Address [facility] Co de Phone Number [facility] Department of [employer] [place] [address] * (ABNORMAL) Basic metabolic panel (08/11/2024 9:17 PM CDT) Sodium 141 135 - 145 mmol/L Potassium, pl 4.1 3.3 - 4.9 mmol/L [facility] Comment:Hemolyzed; Potassium value may be falsely elevated by as much as 0.3-0.5 mmol/L. Suggest redraw and reanalysis. Chloride 97 97 - 110 mmol/L [facility] CO2 33(H) 22 - 32 mmol/L [facility] Anion gap 11 2 - 15 mmol/L [facility] BUN 34(H) 6 - 25 mg/dL [facility] Creatinine 1.60(H) 0.80 - 1.30 mg/dL [facility] Glucose 81 70 - 199 mg/dL [facility] Comment: Interpretive Data Fasting glucose >/= [...] 2022. Calcium 9.3 8.5 - 10.3 mg/dL [facility] Blood 08/11/2024 9:17 PM CDT 08/11/2024 9:51 PM CDT [facility] Jaime Velez MD LAB BLOOD ORDERABLES nal Result [facility] [place] [address] * (ABNORMAL) Drugs of Abuse Screen, Urine [...] 2022. Barbiturates, ur Not Detected CutOff 200ng/mL [facility] Comment: Interpretive Data - Barbiturates: Samples containing [...] 2022. Cocaine, ur Not Detected CutOff 150ng/mL [facility] Comment: Interpretive Data - Cocaine: Samples containing greater than 150 ng/mL benzoylecgonine or other cross- reacting compounds are reported as positive. False positive and false negative results are possible. Confirmatory testing required for definitive results. Current Interpretive Data was last reviewed 2022. Fentanyl, Ur Not Detected CutOff 5 ng/mL [facility] Comment: Interpretive Data - Fentanyl: Samples [...] Opiates, ur Not Detected CutOff 300ng/mL [facility] Comment: Interpretive Data - Opiates: Samples containing greater than 300 ng/mL morphine or other cross-reacting compounds are reported as positive. False positive and false negative results are possible. Confirmatory testing required for definitive results. Current Interpretive Data was last reviewed 2022. Oxycodone, ur Not Detected CutOff 100ng/mL [facility] Comment: Interpretive Data - Oxycodone: Samples containing greater than 100 ng/mL oxycodone or other cross-reacting compounds are reported as positive. False positive and false negative results are possible. Confirmatory testing required for definitive results. Current Interpretive Data was last reviewed 2022. Phencyclidine, ur Not Detected CutOff 25 ng/mL [facility] Comment: Interpretive Data - Phencyclidine: Samples containing greater than 25 ng/mL phencyclidine or other cross-reacting compounds are reported as positive. False positive and false negative results are possible. Confirmatory testing required for definitive results. Current Interpretive Data was last reviewed 2022. Urine Creatinine 9 mg/dL [facility] Comment: Interpretive Data Urine Creatinine: < 10 mg/dL is extremely dilute = or > 10 but < 20 mg/dL is dilute = or > 20 mg/dL is normal Current Interpretive Data was last revised on 2017. Urine 08/11/2024 9:43 AM CDT 08/11/2024 10:49 AM CDT Narrative [facility] - 08/11/2024 11:54 AM CDT Drug of Abuse screening is performed by immunoassay for medical purposes only. This is not to be used for Pain Management purposes. If Detected, confirmation testing will be performed for Amphetamines, Cocaine, Fentanyl, Methadone, Opiates, Oxycodone or Phencyclidine. Lucie Tai NP LAB URINE ORDERABLES Final Result [facility] [place] [address] * (ABNORMAL) Amphetamine Confirmation, Urine (08/11/2024 9:43 AM CDT) [facility] Amphetamine Conf, Ur Does Not Confirm CutOff 150ng/mL Methamphetamine Conf, Ur Confirmed Positive(A) CutOff 150ng/mL [facility] MDA Conf, Ur Does Not Confirm CutOff 150ng/mL [facility] MDMA Conf, Ur Does Not Confirm CutOff 50 ng/mL [facility] MDEA Conf, Ur Does Not Confirm CutOff 150ng/mL [facility] MBDB Conf, Ur Does Not Confirm CutOff 150ng/mL [facility] Comment: Interpretive Data This test detects the presence or absence of drug compounds using LC Tandem mass spectrometry. While this test is highly specific, false positive and false negative results may occur in very rare circumstances. Contact the laboratory for consultation, if needed. Performance characteristics were determined by the [facility] in a manner consistent with CLIA requirement and has not been cleared or approved by the U.S. Food and Drug Administration. Current interpretive data was last revised on 2020. Urine 08/11/2024 9:43 AM CDT 08/11/2024 11:01 AM CDT us Lucie Tai NP LAB URINE ORDERABLES Final Result AM[facility]INO [facility] [place] [address] * Troponin I high-sensitivity 2-hour (08/11/2024 3:24 AM CDT) Trop I hs 25 <=35 ng/L Comment: Interpretive Data For further hscTnI resources including the diagnostic algorithm and an aid in interpretation, copy and paste this link: https://bjhlab.testcatalog.org/show/hsTrop-1 Current Interpretive Data last revised 2019. Trop I hs delta See Comment ng/L [facility] Comment:Inappropriate collec tion time to report a delta. Trop I hs pct delta See Comment % [facility] Comment:Inappropriate collec tion time to report a delta. Trop I hs interp See Comment [facility] Comment:Inappropriate collec tion time to report a delta. Blood 08/11/2024 3:24 AM CDT 08/11/2024 3:36 AM CDT us Melly Moctezuma MD LAB BLOOD ORDERABLES Final Result Performing Organization Address [facility] Co de Phone Number [facility] [place] [address] * (ABNORMAL) Pro B-type natriuretic peptide (08/11/2024 [...] ORDERABLES Final Re sult Performing Organization Address [facility] Co de Phone Number [facility] Department of [place] [address] * XR Chest PA Lateral 2 Views [...] ORDERABLES Final Re sult Performing Organization Address [facility] Co de Phone Number [address] [place] [address] * (ABNORMAL) eGFR (08/11/2024 12:11 AM CDT) [...] ORDERABLES Final Re sult Performing Organization Address City/[facility]/ZIP Co de Phone Number [facility] [place] [address] * Differential, auto (08/11/2024 12:11 AM CDT) Neutrophil abs 4.47 1.50 - 6.50 K/cumm Imm gran abs 0.02 0.00 - 0.10 K/cumm [facility] Lymphocyte abs 1.79 0.80 - 3.30 K/cumm [facility] Monocyte abs 0.50 0.20 - 0.80 K/cumm [facility] Eosinophil abs 0.24 0.00 - 0.50 K/cumm [facility] Basophil abs 0.07 0.00 - 0.10 K/cumm [facility] Neutrophil pct 63.0 % [facility] Comment: Interpretive Data Percent cell count reference ranges are not reported, since discordance with absolute values may lead to misinterpretation of CBC data. Current Interpretive Data was last revised on 2017. Imm gran pct 0.3 % [facility] Comment: Interpretive Data Percent cell count reference ranges are not reported, since discordance with absolute values may lead to misinterpretation of CBC data. Current Interpretive Data was last revised on 2017. Lymphocyte pct 25.2 % [facility] Comment: Interpretive Data Percent cell count reference ranges are not reported, since discordance with absolute values may lead to misinterpretation of CBC data. Current Interpretive Data was last revised on 2017. Monocyte pct 7.1 % [facility] Comment: Interpretive Data Percent cell count reference ranges are not reported, since discordance with absolute values may lead to misinterpretation of CBC data. Current Interpretive Data was last revised on 2017. Eosinophil pct 3.4 % [facility] Comment: Interpretive Data Percent cell count reference ranges are not reported, since discordance with absolute values may lead to misinterpretation of CBC data. Current Interpretive Data was last revised on 2017. Basophil pct 1.0 % [facility] Comment: Interpretive Data Percent cell count reference ranges are not reported, since discordance with absolute values may lead to misinterpretation of CBC data. Current Interpretive Data was last revised on 2017. Blood 08/11/2024 12:1 1 AM CDT 08/11/2024 12:27 AM CDT us Kiel Oliveira MD LAB BLOOD ORDERABLES Final Re sult [facility] [place] [address] * (ABNORMAL) CBC with auto differential (08/11/2024 12:11 AM CDT) [facility] WBC 7.09 3.80 - 9.90 K/cumm Hgb 13.2 13.0 - 17.5 g/dL [facility] Hct 41.2 38.9 - 50.3 % [facility] Plt 192 150 - 400 K/cumm [facility] MPV 10.0 9.1 - 12.3 fL [facility] RBC 4.20(L) 4.30 - 5.80 M/cumm [facility] MCV 98.1(H) 81.3 - 96.4 fL [facility] MCH 31.4 27.1 - 33.3 pg [facility] MCHC 32.0(L) 32.3 - 35.7 g/dL [facility] RDW CV 14.7 11.1 - 14.9 % [facility] RDW SD 53.1(H) 35.7 - 48.1 fL [facility] NRBC abs 0.00 0.00 - 0.01 K/cumm [facility] Blood 08/11/2024 12:1 1 AM CDT 08/11/2024 12:27 AM CDT us Kiel Oliveira MD LAB BLOOD ORDERABLES Final Re sult [facility] [place] [address] * (ABNORMAL) Comprehensive metabolic panel (08/11/2024 12:11 AM CDT) [facility] Sodium 141 135 - 145 mmol/L Potassium, pl 4.8 3.3 - 4.9 mmol/L [facility] Chloride 103 97 - 110 mmol/L [facility] CO2 32 22 - 32 mmol/L [facility] Anion gap 6 2 - 15 mmol/L [facility] BUN 32(H) 6 - 25 mg/dL [facility] Creatinine 1.44(H) 0.80 - 1.30 mg/dL [facility] Glucose 103 70 - 199 mg/dL [facility] Comment: Interpretive Data Fasting glucose >/= [...] 2022. Calcium 9.5 8.5 - 10.3 mg/dL [facility] Bilirubin, total 0.8 0.1 - 1.2 mg/dL [facility] Protein, pl 7.3 6.5 - 8.5 g/dL [facility] Albumin 3.8 3.5 - 5.0 g/dL [facility] Alk phos 95 40 - 130 Units/L [facility] ALT 56(H) 7 - 55 Units/L [facility] AST 49 10 - 50 Units/L [facility] Blood 08/11/2024 12:1 1 AM CDT 08/11/2024 12:26 AM CDT us Kiel Oliveira MD LAB BLOOD ORDERABLES Final Re sult [facility] [place] [address] * ECG 12-LEAD (08/10/2024 11:56 PM CDT) [...] Kiel Oliveira MD ECG ORDERABLES Final Result [facility] * PSA screen (12/12/2023 10:00 AM CDT) [...] last revised 21. Testing performed by: [facility], [address] [place] [address], [place]., [address] Blood 12/12/2023 10:0 0 AM CDT 12/12/2023 12:16 PM CDT us Lisa JACINTO LAB BLOOD ORDERABLES Fin al Result MARINO [address] [facility] Department [place] [address] from Last 3 Months or Most Recently Relevant to Health Maintenance Insurance [employer] [facility] MEDICARE IDPA MEDICARE IDPA Advance Directives For more information, please contact: [phone] * Full Code (Latest Code Status on File) Date Activated Date Inactivated Comments 10/06/2024 5:48 AM 10/11/2024 4:56 PM * Full Code Date Activated Date Inactivated Comments 08/11/2024 5:02 PM 08/14/2024 12:27 AM * Full Code Date Activated Date Inactivated Comments 11/03/2023 4:46 PM 11/06/2023 6:41 PM * Full Code Date Activated Date Inactivated Comments 07/18/2023 11:06 AM 07/19/2023 7:36 PM Care Teams Bag Adjuster Relationship Specialty Start Date End Date Lashae Marcano NP [address] [address] PCP - General Family Practice 08/28/24 [place] [address] [address] Consulting Physician Cardiovascular Disease 07/19/23
--- OUTSIDE RECORDS SUMMARY | 2024-11-06 02:25 | XMS_ITS | Patient Health Record ---
Author Organization [facility] Address [address] [place] [address] Care Team Providers Care Registered Nursing Professor Name Role Phone Lulu Govind Primary Care Provider Rashaun Thurman Unavailable [phone] Deepa Zaidi Unavailable Allergies No Known Allergies Results Component Value Reference Range Notes Hepatitis B Surface Antigen (HBsAg Screen) Reviewed date:10/25/2024 09:23:16 AM Interpretation: Performing Lab:[employer] [facility], Phone - [phone], Director - [facility] Notes/Report: HBsAg Screen Negative Negative Hepatitis C Virus Antibody w /Rflx to Quantitative Real-time PCR ([id number]) Reviewed date:10/25/2024 09:23:16 AM Interpretation: Performing Lab:[employer] [facility], Phone - [phone], [facility] Notes/Report: HCV Ab Non Reactive Non Reactive Interpretation: Not infected with HCV unless early or acute infection is suspected (which may be delayed in an immunocompromised individual), or other evidence exists to indicate HCV infection. TSH Rfx on Abnormal to Free T4 Reviewed date:10/25/2024 09:23:16 AM Interpretation: Performing Lab:[facility], Phone - [phone], Director - [facility] Notes/Report: TSH 7.600 0.450-4.500 uIU/mL T4,Free (Direct) 1.08 0.82-1.77 ng/dL 12 Panel Urine Drug Screen Reviewed date:10/11/2024 03:11:31 PM Interpretation: Performing Lab: Notes/Report: THC neg RAVINDER neg MOP (OPI) neg AMP neg MET neg BAR neg BZO POS MDMA neg MTD neg OXY neg PCP neg BUP neg Hemoglobin A1c CLIA Waived Reviewed date:10/11/2024 03:11:59 PM Interpretation: Performing Lab: Notes/Report: Hemoglobin A1c 5.9 4.0 - 6.4 % HIV Screen *HIV 1, 2 Ab, p24 Ag ([id number]) Reviewed date:10/25/2024 09:23:16 AM Interpretation: Performing Lab:[employer] [place], [address] [facility], Phone - [phone], Director - [facility] Notes/Report: HIV Ab/p24 Ag Screen Non Reactive Non Reactive HIV-1/HIV-2 antibodies and HIV-1 p24 antigen were NOT detected. There is no laboratory evidence of HIV infection. HIV Negative CMP 14 Comprehensive Metabol ic Panel* Reviewed date:10/25/2024 09:23:16 AM Interpretation: Performing Lab:[employer] [place], [address] [place], [place] [address]ox [facility], Phone - [phone], Director - [facility] Notes/Report: Glucose 77 70-99 mg/dL BUN 35 8-27 mg/dL Creatinine 1.32 0.76-1.27 mg/dL eGFR 59 >59 mL/min/1.73 BUN/Creatinine Ratio 27 10-24 Sodium 141 134-144 mmol/L Potassium 4.8 3.5-5.2 mmol/L Chloride 102 96-106 mmol/L Carbon Dioxide, Total 24 20-29 mmol/L Calcium 9.2 8.6-10.2 mg/dL Protein, Total 6.6 6.0-8.5 g/dL Albumin 3.5 3.9-4.9 g/dL Globulin, Total 3.1 1.5-4.5 g/dL Bilirubin, Total 0.6 0.0-1.2 mg/dL Alkaline Phosphatase 120 44-121 IU/L AST (SGOT) 27 0-40 IU/L ALT (SGPT) 23 0-44 IU/L CBC With Differential/Platel et* Reviewed date:10/25/2024 09:23:17 AM Interpretation: Performing Lab:[employer] [place], [address] [facility], Phone - [phone], Director - [facility] Notes/Report: WBC 5.8 3.4-10.8 x10E3/uL RBC 4.48 4.14-5.80 x10E6/uL Hemoglobin 13.8 13.0-17.7 g/dL Hematocrit 45.5 37.5-51.0 % MCV 102 79-97 fL MCH 30.8 26.6-33.0 pg MCHC 30.3 31.5-35.7 g/dL RDW 16.4 11.6-15.4 % Platelets 226 150-450 x10E3/uL Neutrophils 58 Not Estab. % Lymphs 29 Not Estab. % Monocytes 7 Not Estab. % Eos 5 Not Estab. % Basos 1 Not Estab. % Neutrophils (Absolute) 3.4 1.4-7.0 x10E3/uL Lymphs (Absolute) 1.7 0.7-3.1 x10E3/uL Monocytes(Absolute) 0.4 0.1-0.9 x10E3/uL Eos (Absolute) 0.3 0.0-0.4 x10E3/uL Baso (Absolute) 0.1 0.0-0.2 x10E3/uL Immature Granulocytes 0 Not Estab. % Immature Grans (Abs) 0.0 0.0-0.1 x10E3/uL QuantiFERON-TB Gold Plus ([id number]) Reviewed date:10/25/2024 09:23:16 AM Interpretation: Performing Lab[facility] [address] [facility], Phone - [phone], Director - [facility] Notes/Report: QuantiFERON Incubation Incubation performed. QuantiFERON-TB Gold Plus Negative Negative No response to M tuberculosis antigens detected. Infection with M tuberculosis is unlikely, but high risk individuals should be considered for additional testing (ATS/IDSA/CDC Clinical Practice Guidelines, 2017). The reference range is an Antigen minus Nil result of <0.35 IU/mL. Chemiluminescence immunoassay methodology QuantiFERON Criteria QuantiFERON-TB Gold Plus is a qualitative indirect test for M tuberculosis infection (including disease) and is intended for use in conjunction with risk assessment, radiography, and other medical and diagnostic evaluations. The QuantiFERON-TB Gold Plus result is determined by subtracting the Nil value from either TB antigen (Ag) value. The Mitogen tube serves as a control for the test. QuantiFERON TB1 Ag Value 0.07 QuantiFERON TB2 Ag Value 0.10 QuantiFERON Nil Value 0.06 QuantiFERON Mitogen Value >10.00 Breathalyzer Reviewed date:10/11/2024 03:10:55 PM Interpretation: Performing Lab: Notes/Report: [place] 0.000 Rapid Plasma Reagin (RPR) Te st With Reflex to Quantitative RPR and Confirmatory Treponema pallidum Antibodies Reviewed date:10/25/2024 09:23:16 AM Interpretation: Performing Lab:[facility] [place], [address] [facility], [place], Phone - [phone], Director - Ji Notes/Report: RPR Non Reactive Non Reactive Interpretation: Syphilis: RPR with Reflex to RPR Titer and Treponemal Antibodies, Traditional Screening and Diagnosis Algorithm Treponemal RPR RPR, Qn Ab Final Interpretation -------- --------- - Non N/A N/A No laboratory evidence Reactive of syphilis. Retest in 2-4 weeks if recent exposure is suspected. -------- --------- - Reactive >/=1:1 Non Nontreponemal antibodies Reactive detected. Syphilis unlikely; biological false positive possible. Retest in 2-4 weeks if recent exposure is suspected. -------- --------- - Reactive >/=1:1 Reactive Treponemal and nontreponemal antibodies detected. Consistent with past or current (potential early) syphilis. Reason For Referral Diagnosis 1 Methamphetamine abus e (F15.10) Referral Organization [facility] Referring Provider First Name Rashaun Referring Provider Last Name Olman Referring Provider Speciality Internal M edicine Referred Provider Specialty Smoking Cess ation Counseling Referral Priority Routine Referral Appointment Date 10/11/2024 Medications Medication SIG (Take, Route, Frequency, Duration) Notes Start Date End Date Status Cefadroxil 500 MG 1 capsule Orally meron ry 12 hrs Active OLANZapine 5 MG 1 tablet Orally Once a day; Duration: 30 day(s) 10/18/2024 Active Nicotine Polacrilex 4 MG Chew 1 piece as needed for nicotine cravings Mouth/Throat up to every hour (max of 20 pieces per day); Duration: 7 days 10/11/2024 Active traZODone HCl 50 MG 1 tablet at bedtime as needed Orally Once a day; Duration: 30 day(s) 10/18/2024 Active Multi Vitamin - 1 tablet Orally Once a day; Duration: 30 days 10/11/2024 Active Losartan Potassium 50 MG 1 tablet Orally Once a day; Duration: 30 days Active Melatonin 5 MG 1 tablet at bedtime as needed Orally Once a day; Duration: 30 days 10/11/2024 Active Furosemide 40 MG 1.5 tablet Orally On ce a day; Duration: 30 days Active Carvedilol 6.25 MG 1 tablet with food O rally every 12 hours; Duration: 30 days Active Atorvastatin Calcium 10 MG 1 tablet Oral ly Once a day; Duration: 30 days Active Breztri Aerosphere 160-9-4.8 MCG/ACT 2 puffs Inhalation Twice a day; Duration: 30 days Active Aspirin 81 81 MG 1 tablet Orally Once a day; Duration: 30 days Active Albuterol Sulfate HFA 108 (90 Base) MCG/ACT 1 puff as needed Inhalation every 4 hrs Active Social History Tobacco Use: Social History Observation Description Date Details (start date - stop date) Former Smoker NA - NA Sex Assigned At : Social History Observation Description Sex Assigned At Male PRAPARE Question Answer Notes Date Completed/Updated: 10/11/2024 What is your current housing situation? I do not have housing (staying with others, in a hotel, in a fci, living outside on the street, on a beach, or in a park) Are you worried about losing your housing? Yes What is the highest level of school that you have finished? More than high school What is your current work situation? 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 No What country are you from? I choose not to answe r this question Do you feel physically and e motionally safe where you currently live? No In the past year, have you b een afraid of your partner or ex-partner? No PRAPARE Score: 5 Enabling Services Provided? Yes Please specify Case Management Assessment First Visit Tobacco Control (Standard) Question Answer Notes Tobacco use: Former smoker Problems Problem Type SNOMED Code ICD Code Onset Dates Problem Status W/U Status Risk Notes Problem Hyperlipidemia (71690087) Hyperlipidemia (E78.5) Active confirmed Problem Gastroesophageal reflux disease (724239106) GERD (gastroesophageal reflux disease) (K21.9) Active confirmed Problem Mood disorder (91081918) Mood disorder (F39) Active confirmed Problem COPD - Chronic obstructive pulmonary disease (47988691) COPD (chronic obstructive pulmonary disease) (J44.9) Active confirmed Problem Overweight (738329026) Over weight (E66.3) Active confirmed Problem Methamphetamine abuse (301258906) Methamphetamine abuse (F15.10) Active confirmed Problem Cardiomyopathy (30063073) Cardiomyopathy (I42.9) Active confirmed Problem Subclinical hypothyroidism (37058036) Subclinical hypothyroidism (E03.9) Active confirmed Problem Chronic kidney disease stage 3A (814855276) Stage 3a chronic kidney disease (N18.31) Active confirmed Vital Signs Heart Rate 52 /min 10/18/2024 Temperature 97.7 degrees Fahrenheit 10/18/2024 Respiratory Rate 20 /min 10/18/2024 Blood pressure diastolic 60 mm Hg 10/18/2024 Oximetry 98 % 10/18/2024 Height 72 in 10/18/2024 Blood pressure systolic 118 mm Hg 10/18/2024 Weight 231.6 lbs 10/18/2024 BMI 31.41 kg/m2 10/18/2024 Encounters Encounter Location Date Provider Diagnosis [facility] [address] [place] [address] 10/11/2024 Deepa [facility] [address] [place] [address] 10/13/2024 Rashaun Thurman [facility] [address] [place] [address] 10/11/2024 Rashaun Thurman Cardiomyopathy I42.9 ; Methamphetamine abuse F15.10 ; Exposure to potential infection Z20.9 ; Over weight E66.3 ; COPD (chronic obstructive pulmonary disease) J44.9 ; Hyperlipidemia E78.5 and GERD (gastroesophageal reflux disease) K21.9 [facility] [place] [address] 10/18/2024 Rashaun Thurman Cardiomyopathy I42.9 ; Stage 3a chronic kidney disease N18.31 ; Impaired glucose tolerance R73.02 ; COPD (chronic obstructive pulmonary disease) J44.9 ; Methamphetamine abuse F15.10 ; Subclinical hypothyroidism E03.9 ; Mood disorder F39 and Over weight E66.[address] [place] [address] 10/08/2024 Rashaun Thurman [facility] [place] [address] 10/11/2024 Rashaun Thurman Assessments Encounter Date Diagnosis (ICD Code) Assessment Notes Treatment Notes Treatment Clinical Notes Section Notes 10/11/2024 Methamphetamine abuse (ICD-10 - F15.10) SUPR Programs: Based on an evaluation of [facility] Patient Placement Criteria, a recommendation for placement in Level III treatment is indicated and approved. Confirmation of diagnosis is documented in the initial treatment plan.Admit to the Mental Health/Crisis Residential Unit and initiate standing/protocol orders: The following PRN medications may be self-administered by patients under the supervision of approved staff or administered by nursing staff: Ibuprofen 200mg, 2-4 tablets by mouth (with food) every 6 hours as needed for pain (unless on lithium). (NOTE: Ibuprofen and acetaminophen may be given together, but alternating is recommended for continuous pain relief. Guaifenesin 400 mg, 1 tablet by mouth every four hours as needed for cough and chest congestion (take with large glass of water). Loratadine 10 mg, 1 tablet by mouth daily as needed for allergies, watery itchy eyes, or sinus drainage. Throat Lozenges, up to 4 tablets by mouth every three to four hours as needed for sore throat. Antacid tablets, 1-2 tablets by mouth every one to two hours as needed for indigestion or heart burn. If the client prefers liquid, could use: Liquid Antacid : 1 ounce by mouth up to four times daily as needed for indigestion or heartburn Omeprazole 20mg, 1 capsule by mouth once daily for 14 days for frequent heartburn (frequent heartburn is more than 2 episodes per week). Do not exceed 14 days. Do not give to client already taking a proton-pump inhibitor: esomeprazole (Nexium), lansoprazole (Prevacid), pantoprazole (Protonix), rabeprazole (Aciphex), dexlansoprazole (Dexilant) Zofran ODT disintegrating (under the tongue) 4 mg, 1-2 tablets every 8 hours as needed for nausea/vomiting. Milk of Magnesia (MOM): 1 ounce (30 milliliters) by mouth every day as needed for constipation. OR Miralax: Stir and fully dissolve 17 grams (1 packet or 1 capful to measured line) in any 4 to 8 ounces of beverage then drink once daily for constipation. Do not use for more than 7 days. OR Docusate 100 mg, 1 capsule twice daily as needed for constipation Hydrocortisone 1% Cream, apply topically (to the skin) to the affected area up to three times daily as needed for itching or inflammation (avoid eyes and genitals). 2% Antifungal Cream, apply topically (to the skin) as directed as needed to affected areas for athlete's foot or jock itch. Triple Antibiotic Ointment, apply topically (to the skin) up to three times daily as needed for minor cuts and scrapes. Carmex or Chapstick, apply topically (to the skin) as needed for chapped lips and skin. Orajel, apply to affected areas as needed for mouth or tooth pain. Lubricating Eye Drops, instill 1-2 drops to the affected eye(s) as needed for dry/irritated eye(s). Hemorrhoid medications, apply to affected area according to directions as needed for hemorrhoid discomfort and itch. Nix (Permethrin 1%) cream 2 ounces, apply topically (to the skin) as directed as needed for head lice. Sunscreen 30 SPF, Apply to exposed skin prior to exposure to sun. The following PRN medications must be approved by nursing staff before self-administratio n by patients: Diphenhydramine 25 mg, 2 tablets by mouth every 4 hours as needed for allergic reaction or itchy rash. Caution: Do not use hydroxyzine within 4 hours of diphenhydramine and vice versa. Loperamide 2 mg capsules, may give two capsules by mouth for the initial dose, followed by one capsule up to 3 times a day as needed for diarrhea. Acetaminophen 500 mg, 1 - 2 tablets by mouth every six hours as needed for pain. (NOTE: Ibuprofen and acetaminophen may be given together, but alternating is recommended for continuous pain relief). Oxygen-May administer oxygen 2L/min via nasal cannula if O2 saturation is less than 92%, AND client complains of shortness of breath. Target O2 saturation is 94-98%. Caution: Remember too much oxygen can be detrimental to a client with COPD. Oxygen is a drug and should be delivered by trained staff only. Nurses may remove superficial splinters and sutures from skin lacerations. May apply gauze or bandages to any weeping wounds. Contact nursing if there is pus, a foul odor, increased pain/redness/swell ing, or if soaking through bandages. 10/11/2024 Cardiomyopathy (ICD-10 - I42.9) 10/18/2024 Cardiomyopathy (ICD-10 - I42.9) Increase losartan and furosemide, discussed low salt diet 10/18/2024 Stage 3a chronic kidney disease (ICD-10 - N18.31) 10/18/2024 Impaired glucose tolerance (ICD-10 - R73.02) discussed avoiding refined sugar, flour, potatoes 10/11/2024 Exposure to potential infection (ICD-10 - Z20.9) 10/11/2024 Over weight (ICD-10 - E66.3) 10/18/2024 COPD (chronic obstructive pulmonary disease) (ICD-10 - J44.9) 10/18/2024 Methamphetamine abuse (ICD-10 - F15.10) Continue in [place] [facility] 10/11/2024 COPD (chronic obstructive pulmonary disease) (ICD-10 - J44.9) 10/11/2024 Hyperlipidemia (ICD-10 - E78.5) 10/18/2024 Subclinical hypothyroidism (ICD-10 - E03.9) 10/11/2024 GERD (gastroesophageal reflux disease) (ICD-10 - K21.9) 10/18/2024 Mood disorder (ICD-10 - F39) F/u with psych 10/18/2024 Over weight (ICD-10 - E66.3) 10/11/2024 Other Clinician met w ith client to assess needs for residential services. Clinician gathered information regarding historical presentation of mental health and substance use symptoms including withdrawal, HIV Risk assessment, psychiatric hospitalization history and presenting concern. Clinician conducted PHQ9 and CSSRS assessments as well as social drivers of health screening for the purposes of identifying additional service needs. 10/11/2024 Other [place] W/O ISSUES Plan Of Treatment Future Test Test Name Order Date Renal Panel (10) 10/25/2024 Insurance Providers Payer Name Payer Address Payer Phone Subscriber Number Group Number Insured Name Patient Relationship to Insured Coverage Start Date Coverage End Date MEDICARE PART A [address] [place] [address] [id number] Jeevan Castellanos Self - patient is the insured 5 [address] [place] [address] [id number] Jeevan Castellanos Self - patient is the insured 5 Medical (General) History Medical History History ICD Code CHF COPD Surgical History Surgery Date(Month/Year) [facility] 2023 Hospitalization History Reason Date(Month/Year) [facility] 09/2024
--- OUTSIDE RECORDS SUMMARY | 2024-11-06 02:25 | XMS_ITS | Clinical Summary ---
Author Organization [facility] Address [address] [place] [address] Care Team Providers Care Storeroom Supervisor Name Role Phone None, Provider MD Primary Care Provider Unavaila ble Allergies Active Allergy Reactions Criticality Noted Date Comments Sulfa Antibiotics Hives 09/26/2024 Medications aspirin EC 81 MG tablet Take 1 tablet (81 mg total) by mouth daily. 4 02/13/20 25 Active furosemide (LASIX) 40 MG tablet Take 1 tablet (40 mg total) by mouth daily. 30 tablet 5 Active carvedilol (COREG) 12.5 MG tablet Take 1 tablet (12.5 mg total) by mouth 2 (two) times daily. 60 tablet 5 Active budesonide-glyc opyrrolate-form oterol (BREZTRI AEROSPHERE) 160-9-4.8 MCG/ACT inhaler Inhale 2 puffs into the lungs 2 (two) times daily. 10.7 g 5 Active azithromycin (ZITHROMAX) 500 mg tablet Take 1 tablet (500 mg total) by mouth daily. 5 tablet 5 Active albuterol sulfate HFA 108 (90 Base) MCG/ACT inhaler Inhale 2 puffs into the lungs every 6 (six) hours as needed for Wheezing. 18 g 5 Active nystatin (MYCOSTATIN) cream Apply topically 2 (two) times daily. Apply to affected area twice a day. 15 g 5 Active Active Problems Problem Noted Date Diagnosed Date Acute exacerbation of CHF (c ongestive heart failure) ([facility]) 09/04/2024 Fall 09/03/2024 Encounters Date Type Department Care Team Description 10/01/2024 9:54 PM CDT - 10/02/2024 1:42 AM CDT Emergency [place] [address] Raji Jamison MD Penis/Scrotum Problem Discharge Disposition: Home or Self Care (Routine Discharge) 10/01/2024 Travel 09/26/2024 8:52 PM CDT - 09/26/2024 10:41 PM CDT Emergency [facility] [place] [address] Junior Kruger MD Chest Pain Discharge Disposition: Home or Self Care (Routine Discharge) 09/26/2024 Travel 09/14/2024 6:24 PM CDT - 09/15/2024 3:08 AM CDT Emergency [facility] [place] [address] Suresh Weston MD,PHD Fall Discharge Disposition: Home or Self Care (Routine Discharge) 09/14/2024 Travel 09/07/2024 Hospital Follow-up Call [facility] [place] [address] Salome Holland LPN Follow Up Call ([facility] 09/02-09/04/24, ER 09/06/24) 09/06/2024 9:44 PM CDT - 09/06/2024 11:45 PM CDT Emergency [facility] [place] [address] Suresh Weston MD,PHD Eye Swelling; Shortness Of Breath Discharge Disposition: Home or Self Care (Routine Discharge) 09/06/2024 Travel 09/02/2024 10:52 PM CDT - 09/04/2024 9:30 AM CDT Hospital Encounter [facility] [place] [address] Bennie Hernandez, Stephanie Perea, Jeanette Wang MD Fall Discharge Disposition: Home or Self Care (Routine Discharge) 09/02/2024 12:34 PM CDT - 09/02/2024 4:48 PM CDT Emergency [facility] [place] [address] Ancelmo Levy MD Smith, MD Mena Yarbrough Kandace C, MD Altered Mental Status Discharge Disposition: Left Against Medical Advice 09/02/2024 Travel from Last 3 Months Social History Tobacco Use Types Packs/Day Years Used Date Smoking Tobacco: Former Cigarettes Smokeless Tobacco: Former Tobacco Cessation:Counseling Given: Not Answered B1300 Health Literacy Answer Date Recor ded How often do you need to hav e someone help you when you read instructions, pamphlets, or other written material from your doctor or pharmacy? Never 09/03/2024 [facility] Utilities Answer Date Recorded In the past 12 months has [facility] [employer], oil, or water [employer] threatened to shut off services in your home? Yes 09/03/2024 Humiliation, Afraid, Rape, and Kick questionnair e Answer Date Recorded Within the last year, have y ou been afraid of your partner or ex-partner? No 09/03/2024 Within the last year, have y ou been humiliated or emotionally abused in other ways by your partner or ex-partner? No Within the last year, have y ou been kicked, hit, slapped, or otherwise physically hurt by your partner or ex-partner? No 09/03/2024 Within the last year, have y ou been raped or forced to have any kind of sexual activity by your partner or ex-partner? No 09/03/2024 Social Connection and Isolation Panel [NHANES] A nswer Date Recorded In a typical week, how many times do you talk on the phone with family, friends, or neighbors? Twice a week 09/03/2024 How often do you get together with friends or re latives? Twice a week 09/03/2024 Attends Sikh Services Not on file 09/03 Active Member of Clubs or Organizations Not on f ile 09/03/2024 Attends Club or Organization Meetings Not on kush e 09/03/2024 Marital Status Not on file 09/03/2024 AUDIT-C Answer Date Recorded Q1: How often do you have a drink containing alcohol? Never 09/03/2024 Q2: How many drinks containi ng alcohol do you have on a typical day when you are drinking? Patient does not drink Q3: How often do you have si x or more drinks on one occasion? Never 09/03/2024 Overall Financial Resource Strain (CARDIA) Answe r Date Recorded How hard is it for you to pa y for the very basics like food, housing, medical care, and heating? Somewhat hard 09/03/2024 [facility] Occupat ional Health - Occupational Stress Questionnaire Answer Date Recorded Do you feel stress - tense, restless, nervous, or anxious, or unable to sleep at night because your mind is troubled all the time - these days? Only a little 09/03/2024 Hunger Vital Sign Answer Date Recorded Within the past 12 months, y ou worried that your food would run out before you got the money to buy more. Never true 09/04/19 25 Within the past 12 months, t he food you bought just didn't last and you didn't have money to get more. Never true 09/03/2024 PRAPARE - Transportation Answer Date Re corded In the past 12 months, has l ack of transportation kept you from medical appointments or from getting medications? Yes 08/13 In the past 12 months, has l ack of transportation kept you from meetings, work, or from getting things needed for daily living? No 09/03/2024 Housing Stability Vital Sign Answer Gabino e Recorded In the last 12 months, was t here a time when you were not able to pay the mortgage or rent on time? Yes 09/03/2024 In the past 12 months, how m any times have you moved where you were living? 6 09/03/2024 At any time in the past 12 [facility], were you homeless or living in a jail (including now)? Yes 09/03/2024 Sex and Gender Information Value Date Recorded Sex Assigned at Male 09/02/2024 12:41 PM CDT Legal Sex Male 8:13 PM CDT Gender Identity Male 09/02/2024 12:40 PM CDT Sexual Orientation Not on file Last Filed Vital Signs Vital Sign Reading Time Taken Comments Blood Pressure 116/91 10/02/2024 12:00 AM CDT Pulse 105 10/01/2024 9:50 PM CDT Temperature 37.1 C (98.8 F) 10/01/2024 9:50 PM CDT Respiratory Rate 20 10/01/2024 9:50 PM CDT Oxygen Saturation 94% 10/02/2024 12:00 AM CDT Inhaled Oxygen Concentration - - Weight 92.1 kg (203 lb 0.7 oz) 10/01/2024 9:50 P M CDT Height 182.9 cm (6') 10/01/2024 9:50 PM CDT Body Mass Index 27.54 10/01/2024 9:50 PM CDT Plan of Treatment Health Maintenance Due Date Last Done Comments Colorectal Cancer Screening Colonoscopy (10 Years) 1955 Hepatitis C 1975 Zoster Vaccines (1 of 2) 2007 RSV Immunization or 60+ Years (1 - Risk 60-74 years 1-dose series) 2017 Annual Medicare Wellness Visit 2022 COVID-19 Vaccine (1 - 2023-2 5 season) 2023 DTaP, Tdap and Td Vaccines ( 4 - Td or Tdap) 07/26/2034 07/26/2024, 12/20/2023, 03/07/2013 AAA SCREENING Completed 01/07/2024, 12/06/2021 Pneumococcal Vaccine: 50+ Years Completed 05/27/2024, 03/07/2009, 11/03/2008 Meningococcal B Vaccine Aged Out No l onger eligible based on patient's age to complete this topic Meningococcal Vaccine Aged Out No patience hanny eligible based on patient's age to complete this topic RSV Immunizations Under 20 Months Aged Out No longer eligible b ased on patient's age to complete this topic Interventions Community Resource Recommendations Community Resource Services Recommended Domains Addressed Status Status Reason/Outcome Date/Time [facility] Financial Assistance, Help Find Housing, Housing Insecurity Services, Transportation Financial Resource Strain, Transportation Needs, Housing Stability Recommended 10/31/2024 10:58 PM CDT [facility] Housing Insecurity Services Housing Stability Recommended 10/31/2024 10:58 PM CDT from Last 12 Months Procedures Procedure Name Priority Date/Time Associated Diagnosis Comments HC URINALYSIS AUTO W/O MICRO STAT 10/01/2024 11:15 PM CDT XR CHEST PORTABLE STAT 10/01/2024 10: 33 PM CDT PRO-BRAIN NATRIURETIC PEPTIDE STAT 10/01/2024 10:08 PM CDT TROPONIN, QUANT STAT 10/01/2024 10:08 PM CDT COMPREHENSIVE METABOLIC PANEL STAT 10/01/2024 10:08 PM CDT CBC W/DIFF AUTOMATED STAT 10/01/2024 10:08 PM CDT ECG 12-LEAD STAT 09/26/2024 10:20 PM CDT XR CHEST PORTABLE STAT 09/26/2024 9:2 9 PM CDT PRO-BRAIN NATRIURETIC PEPTIDE STAT 09/26/2024 9:06 PM CDT TROPONIN, QUANT STAT 09/26/2024 9:06 PM CDT COMPREHENSIVE METABOLIC PANEL STAT 09/26/2024 9:06 PM CDT CBC W/DIFF AUTOMATED STAT 09/26/2024 9:06 PM CDT ECG 12-LEAD STAT 09/26/2024 9:[address] CERV SPINE WO CON STAT 09/15/2024 12:[address] HEAD WO CON STAT 09/15/2024 12:26 AM CDT XR CHEST PORTABLE STAT 09/14/2024 7:1 3 PM CDT ECG 12-LEAD STAT 09/14/2024 6:44 PM CDT ETHANOL STAT 09/14/2024 6:39 PM CDT CK (CPK) STAT 09/14/2024 6:39 PM CDT PRO-BRAIN NATRIURETIC PEPTIDE STAT 09/14/2024 6:39 PM CDT TROPONIN, QUANT STAT 09/14/2024 6:39 PM CDT COMPREHENSIVE METABOLIC PANEL STAT 09/14/2024 6:39 PM CDT CBC W/DIFF AUTOMATED STAT 09/14/2024 6:39 PM CDT PRO-BRAIN NATRIURETIC PEPTIDE STAT 09/06/2024 10:10 PM CDT TROPONIN, QUANT STAT 09/06/2024 10:10 PM CDT COMPREHENSIVE METABOLIC PANEL STAT 09/06/2024 10:10 PM CDT PARTIAL THROMBOPLASTIN TIME,PTT STAT 09/06/2024 10:10 PM CDT PROTHROMBIN TIME, VENOUS STAT 09/06/2024 10:10 PM CDT CBC W/DIFF AUTOMATED STAT 09/06/2024 10:10 PM CDT XR CHEST PA+LAT STAT 09/06/2024 10:[address] ORBITS WO CON STAT 09/06/2024 9:[address] HEAD WO CON STAT 09/06/2024 9:59 PM CDT ECG 12-LEAD Routine 09/06/2024 9:47 PM CDT BASIC METABOLIC PANEL Routine 09/04/2024 7:10 AM CDT PHOSPHORUS, INORGANIC PHOSPHATE Routine 09/03/2024 8:41 AM CDT COMPREHENSIVE METABOLIC PANEL Routine 09/03/2024 8:41 AM CDT CBC W/DIFF AUTOMATED Routine 09/03/2024 8:41 AM CDT LIPID PANEL Routine 09/03/2024 8:41 AM CDT DRUG SCREEN RAPID STAT 09/03/2024 12: 29 AM CDT PHOSPHORUS, INORGANIC PHOSPHATE Routine 09/02/2024 11:26 PM CDT MAGNESIUM Routine 09/02/2024 11:26 PM CDT CK (CPK) Routine 09/02/2024 10:58 PM CDT ETHANOL Routine 09/02/2024 10:58 PM CDT PRO-BRAIN NATRIURETIC PEPTIDE STAT 09/02/2024 10:58 PM CDT TROPONIN, QUANT STAT 09/02/2024 10:58 PM CDT COMPREHENSIVE METABOLIC PANEL STAT 09/02/2024 10:58 PM CDT CBC W/DIFF AUTOMATED STAT 09/02/2024 10:58 PM CDT CRITICAL CARE Routine 09/02/2024 10:56 PM CDT XR CHEST PORTABLE STAT 09/02/2024 1:2 1 PM CDT XR KNEE LT 3V STAT 09/02/2024 1:[address] CERV SPINE WO CON STAT 09/02/2024 1:[address] HEAD WO CON STAT 09/02/2024 1:10 PM CDT ETHANOL Routine 09/02/2024 12:43 PM CDT PRO-BRAIN NATRIURETIC PEPTIDE STAT 09/02/2024 12:43 PM CDT TROPONIN, QUANT STAT 09/02/2024 12:43 PM CDT COMPREHENSIVE METABOLIC PANEL STAT 09/02/2024 12:43 PM CDT CBC W/DIFF AUTOMATED STAT 09/02/2024 12:43 PM CDT ECG 12-LEAD Routine 09/02/2024 12:40 PM CDT from Last 3 Months Results * (ABNORMAL) URINALYSIS (10/01/2024 11:15 PM CDT) SPECIMEN TYPE URINE CLEAN CATCH 10/01/2024 11:15 PM CDT [facility] COLOR (U) YELLOW 10/01/2024 11:38 PM CDT [facility] TRANSPARENCY CLEAR 10/01/2024 11:38 PM CDT [facility] SPECIFIC GRAVITY (U) 1.019 1.001 - 1.030 10/01/2024 11:38 PM CDT [facility] U PH 5.5 5.0 - 9.0 10/01/2024 11:38 PM CDT [facility] LEUKOCYTES (U) NEGATIVE NEGATIVE 10/01/2024 11:38 PM CDT [facility] NITRITES NEGATIVE NEGATIVE 10/01/2024 11:38 PM CDT [facility] PROTEIN RANDOM (U) 30(H) <30 MG/DL 10/01/2024 11:38 PM CDT [facility] GLUCOSE (U) NORMAL NORMAL MG/DL 10/01/2024 11:38 PM CDT [facility] KETONES MG/DL (U) NEGATIVE NEGATIVE MG/DL 10/01/2024 11:38 PM CDT [facility] UROBILINOGEN NORMAL NORMAL MG/DL 10/01/2024 11:38 PM CDT [facility] BILIRUBIN (U) NEGATIVE NEGATIVE MG/DL 10/01/2024 11:38 PM CDT [facility] BLOOD (U) NEGATIVE NEGATIVE 10/01/2024 11:38 PM CDT [facility] MUCUS RARE /LPF 10/01/2024 11:38 PM CDT [facility] RBC/HPF <1 <6 /HPF 10/01/2024 11:38 PM CDT [facility] SQUAMOUS EPITHELIALS RARE /HPF 10/01/2024 11:38 PM CDT [facility] URINE SPECIMEN OBTAINED BY CLEAN CATCH PROCEDURE / Unknown 10/01/2024 11:15 PM CDT Raji Jamison MD URINE ORDERABLES Final Resu lt [facility] [address] [place] [address], [place] [phone] * XR CHEST PORTABLE (10/01/2024 10:33 PM CDT) Only the most recent of4 resultswithin the time period is included. Anatomical Region Laterality Modality Chest Radiographic Sharonda ging 10/01/2024 10:3 8 PM CDT Impressions 10/01/2024 10:39 PM CDT IMPRESSION: Cardiomegaly and mild central vascular congestion. No sizable pleural effusion. Referred By: Interpreted By: Adria Pritchard MD, 10/01/2024 10:38 PM Narrative 10/01/2024 10:39 PM CDT [address] [address] Examination: XR CHEST PORTABLE Exam time: 10/01/2024 10:24 PM Clinical history: EDEMA Comparison: Radiographs 09/26/2024 and 09/14/2024. Technique: AP view of the chest. Findings: Redemonstrated moderate to marked cardiomegaly. Mild central vascular congestion is noted. No sizable pleural effusion is seen. No consolidative airspace opacities or pneumothorax identified. Procedure Note Adria Pritchard MD - 10/01/[address] [address] Examination: XR CHEST PORTABLE Exam time: 10/01/2024 10:24 PM Clinical history: EDEMA Comparison: Radiographs 09/26/2024 and 09/14/2024. Technique: AP view of the chest. Findings: Redemonstrated moderate to marked cardiomegaly. Mild central vascularcongestion is noted. No sizable pleural effusion is seen. No consolidativeairspace opacities or pneumothorax identified. IMPRESSION: Cardiomegaly and mild central vascular congestion. No sizable pleuraleffusion. Referred By: Interpreted By: Adria Pritchard MD, 10/01/2024 10:38 PM Raji Jamison MD GENERAL IMAGING Final Resul t * (ABNORMAL) PRO-BRAIN NATRIURETIC PEPTIDE (10/01/2024 10:08 PM CDT) Only the most recent of6 resultswithin the time period is included. PRO-B TYPE NATRIURETIC PEPTIDE 9,394(H) <125 PG/ML 10/01/2024 10:37 PM CDT [facility] Comment: CUT POINTS ESTABLISHED BY [employer] ON NT PROBNP (ICON) STUDY (2006). AGE INDEPENDENT: <300 PG/ML HAS A 99% NEGATIVE PREDICTIVE VALUE FOR EXCLUDING ACUTE CHF <50 YEARS: >450 PG/ML IS CONSISTENT WITH ACUTE CHF 50-75 YEARS: >900 PG/ML IS CONSISTENT WITH ACUTE CHF >75 YEARS: >1800 PG/ML IS CONSISTENT WITH ACUTE CHF IN PATIENTS WITH RENAL INSUFFICIENCY (GFR <60), >1200 PG/ML YIELDS A DIAGNOSTIC SENSITIVITY AND SPECIFICITY OF 89% AND 72% FOR ACUTE CHF. 10/01/2024 10:0 8 PM CDT us Raji Jamison MD LABORATORY Final Resul t [facility] [address] [place] [address], [place] [phone] * (ABNORMAL) COMPREHENSIVE METABOLIC PANEL (10/01/2024 10:08 PM CDT) Only the most recent of7 resultswithin the time period is included. GLUCOSE 96 70 - 99 MG/DL 10/01/2024 10:37 PM CDT [facility] BUN 21(H) 7 - 18 MG/DL 10/01/2024 10:37 PM CDT [facility] CREATININE S/P/B 1.65(H) 0.7 - 1.3 MG/DL 10/01/2024 10:37 PM CDT [facility] SODIUM S/P/B 139 136 - 145 MMOL/L 10/01/2024 10:37 PM CDT [facility] POTASSIUM S/P/B 3.6 3.5 - 5.1 MMOL/L 10/01/2024 10:37 PM CDT [facility] CHLORIDE S/P/B 106 97 - 115 MMOL/L 10/01/2024 10:37 PM CDT [facility] CO2 27.2 21 - 32 MMOL/L 10/01/2024 10:37 PM T [facility] CALCIUM S/P/B 9.0 8.5 - 10.1 MG/DL 10/01/2024 10:37 PM T [facility] BILIRUBIN TOTAL S/P/B 1.6(H) 0.2 - 1.2 MG/DL 10/01/2024 10:37 PM T [facility] Comment: THIS ASSAY IS NOT RECOMMENDED FOR PATIENTS UNDERGOING TREATMENT WITH ELTROMBOPAG DUE TO THE POTENTIAL FOR FALSELY ELEVATED RESULTS. TOTAL PROTEIN S/P/B 7.3 6.4 - 8.2 G/DL 10/01/2024 10:37 PM T [facility] ALBUMIN S/P/B 3.4 3.4 - 5.0 G/DL 10/01/2024 10:37 PM T [facility] AST 43(H) 15 - 37 U/L 10/01/2024 10:37 PM T [facility] ALT 37 16 - 60 U/L 10/01/2024 10:37 PM T [facility] ALKALINE PHOSPHATASE S/P/B 98 50 - 136 U/L 10/01/2024 10:37 PM T [facility] ANION GAP 5.8 2 - 10 MMOL/L 10/01/2024 10:37 PM T [facility] BUN CREATININE RATIO 12.7 6 - 26 10/01/2024 10:37 PM T [facility] A/G RATIO 0.9(L) 1.0 - 2.0 RATIO 10/01/2024 10:37 PM [facility] GFR ESTIMATE 45(L) >90 ML/MIN/1.7 3 M2 10/01/2024 10:37 PM T [facility] Comment: NOTE: eGFR is not calculated for patients <18 years of age or gender unknown. This is an estimated GFR calculation using the new CKD EPI creatinine equation without race and so does not require a correction factor for race. This estimated GFR should not be used for calculating drug doses. 10/01/2024 10:0 8 PM CDT Raji Jamison MD LABORATORY Final Resul t [facility] [address] [place] [address], [place] [phone] * (ABNORMAL) CBC W/DIFF AUTOMATED (10/01/2024 10:08 PM CDT) Only the most recent of7 resultswithin the time period is included. WBC 8.04 4.5 - 11.0 x10'3/uL 10/01/2024 10:22 PM CDT [facility] RBC 4.26(L) 4.70 - 6.10 x10'6/uL 10/01/2024 10:22 PM CDT [facility] HGB 13.4(L) 14.0 - 18.0 G/DL 10/01/2024 10:22 PM CDT [facility] HCT 41.2(L) 43.0 - 54.0 % 10/01/2024 10:22 PM CDT [facility] MCV 96.7(H) 80.0 - 94.0 FL 10/01/2024 10:22 PM CDT [facility] MCH 31.5(H) 27.0 - 31.0 PG 10/01/2024 10:22 PM CDT [facility] MCHC 32.5 32.0 - 36.0 G/DL 10/01/2024 10:22 PM CDT [facility] RDW 15.0(H) 11.5 - 14.5 % 10/01/2024 10:22 PM CDT [facility] PLT 150 130 - 400 x10'3/uL 10/01/2024 10:22 PM CDT [facility] MPV 10.4 9.3 - 12.2 FL 10/01/2024 10:22 PM CDT [facility] DIFFERENTIAL TYPE AUTOMATED DIFFERENTIAL 10/01/2024 10:22 PM CDT [facility] NEUTROPHILS % 63.4 % 10/01/2024 10:22 PM CDT [facility] LYMPHOCYTES % 27.7 % 10/01/2024 10:22 PM CDT [facility] MONOCYTES % 6.2 % 10/01/2024 10:22 PM CDT [facility] EOSINOPHILS 2.0 % 10/01/2024 10:22 PM CDT [facility] BASOPHILS 0.5 % 10/01/2024 10:22 PM CDT [facility] IMMATURE GRANS % 0.2 % 10/02/19 10:22 PM CDT [facility] ABS. NEUTROPHILS 5.09 1.80 - 7.70 x10'3/uL 10/01/2024 10:22 PM CDT [facility] ABS. LYMPHOCYTES 2.23 1.00 - 4.80 x10'3/uL 10/01/2024 10:22 PM CDT [facility] ABS. MONOCYTES 0.50 0.30 - 0.82 x10'3/uL 10/01/2024 10:22 PM CDT [facility] ABS. EOSINOPHILS 0.16 0.04 - 0.54 x10'3/uL 10/01/2024 10:22 PM CDT [facility] ABS. BASOPHILS 0.04 0.01 - 0.08 x10'3/uL 10/01/2024 10:22 PM CDT [facility] ABS. IMMATURE GRANULOCYTES 0.02 0.00 - 0.49 x10'3/uL 10/01/2024 10:22 PM CDT [facility] 10/01/2024 10:0 8 PM CDT us Raji Jamison MD LABORATORY Final Resul t Performing Organization Address City/[facility] Co de Phone Number [facility] [address] [place] [address], [place] [phone] * TROPONIN, QUANT (10/01/2024 10:08 PM CDT) Only the most recent of6 resultswithin the time period is included. TROPONIN I HIGH SENSITIVITY 42 <79 ng/L 10/01/2024 10:37 PM CDT [facility] Comment: HIGH DOSES OF BIOTIN, TROPONIN-SPECIFIC AUTOANTIBODIES, AND ANTIBODY THERAPY CONTAINING HAMA MAY INTERFERE WITH THIS TEST RESULT. CORRELATION TO CLINICAL HISTORY AND PRESENTATION RECOMMENDED. 10/01/2024 10:0 8 PM CDT us Raji Jamison MD LABORATORY Final Resul t Performing Organization Address City/[facility] Co de Phone Number [facility] [address] [place] [address], [place] [phone] * ECG 12 lead (09/26/2024 10:20 PM CDT) Only the most recent of5 resultswithin the time period is included. 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: : 1955 Requested By: STEFANY SUAREZ Order Number: [id number] Reading MD: Raymundo Wong Measurements Intervals [place] Rate: 87 P: 36 OK: 179 QRS: 19 QRSD: 98 T: 32 QT: 341 QTc: 412 Interpretive Statements SINUS RHYTHM LOW QRS VOLTAGE IN PRECORDIAL LEADS [QRS DEFLECTION < 1.0 mV IN CHEST LEADS] NONSPECIFIC T-WAVE ABNORMALITY Compared to ECG 09/26/2024 21:00:23 Low QRS voltage now present T-wave abnormality now present Sinus tachycardia no longer present Left ventricular hypertrophy no longer present ST (T wave) deviation no longer present Procedure Note Raymundo Wong MD - 09/28/[address] Test Date: 2024-09-26 Pat Name: CELINA PAK Department: 41 Room: [id number] Gender: Male Director Of Housing 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 Services: : 1955 Requested By: STEFANY SUAREZ Order Number: [id number] Reading MD: Raymundo Wong Measurements Intervals [place] Rate: 87 P: 36 OK: 179 QRS: 19 QRSD: 98 T: 32 QT: 341 QTc: 412 Interpretive Statements SINUS RHYTHM LOW QRS VOLTAGE IN PRECORDIAL LEADS [QRS DEFLECTION < 1.0 mV IN CHESTLEADS] NONSPECIFIC T-WAVE ABNORMALITY Compared to ECG 09/26/2024 21:00:23 Low QRS voltage now present T-wave abnormality now present Sinus tachycardia no longer present Left ventricular hypertrophy no longer present ST (T wave) deviation no longer present Junior Kruger MD ECG ORDERABLES Final Result [facility] ([facility] RAD * CT HEAD WO CON (09/15/2024 12:26 AM CDT) Only the most recent of3 resultswithin the time period is included. Anatomical Region Laterality Modality Head Computed Tomogra phy 09/15/2024 1:28 AM CDT Impressions 09/15/2024 1:30 AM CDT IMPRESSION: ===== 1. No acute intracranial abnormalities. 2. Atrophy and small vessel ischemic disease. Superimposed acute infarct not excluded. 3. Anterior left scalp hematoma. Referred By: Interpreted By: Hayder Chance MD, 09/15/2024 1:28 AM Narrative 09/15/2024 1:30 AM CDT [address] [address] EXAMINATION: CT of the head EXAM DATE/TIME: 09/15/2024 12:11 AM REASON FOR EXAM: fall, head injury Accession COMPARISON: Head CT 09/06/2024 TECHNIQUE: Axial CT images of the brain are obtained from skull base through vertex without the use of IV contrast agent. A dose lowering technique was used for this procedure, which may include, but is not limited to, dose reduction technique, automated exposure control, iterative reconstruction, ALARA (As Low As Reasonably Achievable), or Image Gently techniques. FINDINGS: No acute hemorrhage or large territory infarct. Ventricles are minimally enlarged with prominent sulci bilaterally indicated mild symmetric parenchymal volume loss. There are minimal areas of scattered hypodensities in the periventricular deep white matter which are nonspecific but likely secondary to mild small vessel ischemic disease. There are no extra-axial fluid collections. There is no mass, mass effect, or midline shift. There is no depressed skull fracture. Visualized paranasal sinuses show minimal anterior left ethmoid and left maxillary mucosal thickening with remainder paranasal sinuses and mastoid air cells clear. Visualized orbital contents are unremarkable. Anterior left scalp hematoma. ===== Procedure Note Hayder Chance MD - [facility]15[facility] [place], [place] [address] EXAMINATION: CT of the head EXAM DATE/TIME: 09/15/2024 12:11 AM REASON FOR EXAM: fall, head injury Accession COMPARISON: Head CT 09/06/2024 TECHNIQUE: Axial CT images of the brain are obtained from skull basethrough vertex without the use of IV contrast agent. A dose loweringtechnique was used for this procedure, which may include, but is notlimited to, dose reduction technique, automated exposure control,iterative reconstruction, ALARA (As Low As Reasonably Achievable), orImage Gently techniques. FINDINGS: No acute hemorrhage or large territory infarct. Ventricles areminimally enlarged with prominent sulci bilaterally indicated mildsymmetric parenchymal volume loss. There are minimal areas of scatteredhypodensities in the periventricular deep white matter which arenonspecific but likely secondary to mild small vessel ischemic disease.There are no extra-axial fluid collections. There is no mass, masseffect, or midline shift. There is no depressed skull fracture.Visualized paranasal sinuses show minimal anterior left ethmoid and leftmaxillary mucosal thickening with remainder paranasal sinuses and mastoidair cells clear. Visualized orbital contents are unremarkable. Anteriorleft scalp hematoma. ===== IMPRESSION: ===== 1. No acute intracranial abnormalities. 2. Atrophy and small vessel ischemic disease. Superimposed acute infarctnot excluded. 3. Anterior left scalp hematoma. Referred By: Interpreted By: Hayder Chance MD, 09/15/2024 1:28 AM us Suresh Weston MD,PHD CT Final Resu lt * CT CERV SPINE WO CON (09/15/2024 12:26 AM CDT) Only the most recent of2 resultswithin the time period is included. Anatomical Region Laterality Modality Spine Computed Tomogra phy 09/15/2024 1:30 AM CDT Impressions 09/15/2024 1:32 AM CDT IMPRESSION: ===== 1. Multilevel degenerative changes with no acute traumatic abnormality within limitations of motion. If there is any continued clinical concern, repeat imaging when patient can comply with imaging instructions recommended. Referred By: Interpreted By: Hayder Chance MD, 09/15/2024 1:30 AM Narrative 09/15/2024 1:32 AM CDT [address] [address] EXAMINATION: CT Cervical Spine without contrast. EXAM DATE/TIME: 09/15/2024 12:11 AM REASON FOR EXAM: fall Accession, passed out and fell COMPARISON: Cervical CT spine 09/02/2024 TECHNIQUE: Axial CT images of the cervical spine are obtained without the use of IV contrast agent. Subsequent coronal and sagittal reformatted sequences are created for evaluation. A dose lowering technique was used for this procedure, which may include, but is not limited to, dose reduction technique, automated exposure control, iterative reconstruction, ALARA (As Low As Reasonably Achievable), or Image Gently techniques. FINDINGS: Limited evaluation of posterior fossa contents unremarkable. The included skull base is intact. Mastoid air cells are clear. Motion artifact in the mid to lower cervical spine somewhat limits evaluation. Cervical vertebral body heights and alignment are grossly preserved. Large anterior bridging osteophyte across C3-C4 levels. No convincing acute fracture or dislocation. No convincing abnormality in the lung apices. No convincing destructive osseous lesion. Multiple endplate osteophytes. ===== Procedure Note Hayder Chance MD - 09/15/[address] [address] EXAMINATION: CT Cervical Spine without contrast. EXAM DATE/TIME: 09/15/2024 12:11 AM REASON FOR EXAM: fall Accession, passed out and fell COMPARISON: Cervical CT spine 09/02/2024 TECHNIQUE: Axial CT images of the cervical spine are obtained without theuse of IV contrast agent. Subsequent coronal and sagittal reformattedsequences are created for evaluation. A dose lowering technique was usedfor this procedure, which may include, but is not limited to, dosereduction technique, automated exposure control, iterative reconstruction,ALARA (As Low As Reasonably Achievable), or Image Gently techniques. FINDINGS: Limited evaluation of posterior fossa contents unremarkable.The included skull base is intact. Mastoid air cells are clear. Motionartifact in the mid to lower cervical spine somewhat limits evaluation.Cervical vertebral body heights and alignment are grossly preserved.Large anterior bridging osteophyte across C3-C4 levels. No convincingacute fracture or dislocation. No convincing abnormality in the lungapices. No convincing destructive osseous lesion. Multiple endplateosteophytes. ===== IMPRESSION: ===== 1. Multilevel degenerative changes with no acute traumatic abnormalitywithin limitations of motion. If there is any continued clinical concern,repeat imaging when patient can comply with imaging instructionsrecommended. Referred By: Interpreted By: Hayder Chance MD, 09/15/2024 1:30 AM Suresh Weston MD,PHD CT Final Resu lt * ETHANOL (09/14/2024 6:39 PM CDT) Only the most recent of3 resultswithin the time period is included. Pathologist [facility] ALCOHOL S/P/B <0.003 <0.003 G/DL 09/14/2024 7:23 PM CDT [facility] 09/14/2024 6:39 PM CDT Radha [facility] Final Result [facility] [address] [place] [address], [place] [phone] * CK (CPK) (09/14/2024 6:39 PM CDT) Only the most recent of2 resultswithin the time period is included. CPK 137 35 - 232 U/L 09/14/2024 7:23 PM CDT [facility] 09/14/2024 6:39 PM CDT Radha [facility] Final Result Performing Organization Address City/[facility]/ZIP Co de Phone Number [facility] [address] [place] [address], [place] [phone] * PARTIAL THROMBOPLASTIN TIME,PTT (09/06/2024 10:10 PM CDT) PTT 36.5 25.1 - 36.5 SEC 09/06/2024 10:37 PM CDT [facility] 09/06/2024 10:1 0 PM CDT Roberto [facility] Final Resul t Performing Organization Address [facility] Co de Phone Number [facility] [address] [place] [address], [place] [phone] * PROTIME/INR, VENOUS (09/06/2024 10:10 PM CDT) PROTIME 12.2 10.2 - 12.9 SEC 09/06/2024 10:37 PM CDT [facility] INR 1.1 09/06/2024 10:37 PM CDT [facility] Comment: Recommended INR Therapeutic Goals: 2.0-3.0 Routine Therapy 2.5-3.5 Mechanical Prosthetic Valves (High Risk) 09/06/2024 10:1 0 PM CDT Roberto [facility] Final Resul t Performing Organization Address City/[facility]/ZIP Co de Phone Number [facility] [address] [place] [address], * XR CHEST PA+LAT (09/06/2024 10:04 PM CDT) Anatomical Region Laterality Modality Chest Radiographic Sharonda ging 09/06/2024 10:2 9 PM CDT Impressions 09/06/2024 10:36 PM CDT IMPRESSION: 1. Borderline cardiomegaly with mild central vascular congestion; significantly improved since September 02.. 2. Small area of opacity right infrahilar region may represent concomitant right lower lobe pneumonia. 3. Bilateral rounded hilar prominence; dilated hilar vascular structures versus lymphadenopathy.. 4. Continued follow-up to resolution. Referred By: Interpreted By: Joya Francisco DO, 09/06/2024 10:29 PM Narrative 09/06/2024 10:36 PM CDT [address] [address] CLINICAL INDICATION: 69-year-old male. Reason for examination: Weakness 09/06/2024 10:05 PM, Key Escobar I: Pt presents to ED with complaints of swelling and bruising to his left eye, pt is concerned because he can't keep his eye open. Pt had a fall on the and hit his head. Pt reports he was admitted to this hospital after the fall and signed out AMA. Pt also reports shortness of breath and bilateral lower leg swelling, pt states he is homeless. TECHNIQUE: Upright PA and lateral views of the chest. COMPARISON: Portable AP view of the chest 09/02/2024. FINDINGS: Heart size upper limits of normal.. Mild residual central vascular congestion, significantly improved since September 02. Bilateral symmetric prominence of perihilar regions may be prominent pulmonary vascular structures or hilar lymphadenopathy. Line small area of opacity right suprahilar region. No pleural effusion or consolidation. No pneumothorax. Stable small calcified granuloma left lower lobe. Bony thorax intact, unremarkable. Procedure Note Joya Francisco MD - 09/06/2024 [facility] [address] [place], [place] [address] CLINICAL INDICATION: 69-year-old male. Reason for examination: Weakness 09/06/2024 10:05 PM, Key Escobar I: Pt presents to ED with complaints of swelling and bruising to his lefteye, pt is concerned because he can't keep his eye open. Pt had a fall ont and hit his head. Pt reports he was admitted to this hospitalafter the fall and signed out AMA. Pt also reports shortness of breathand bilateral lower leg swelling, pt states he is homeless. TECHNIQUE: Upright PA and lateral views of the chest. COMPARISON: Portable AP view of the chest 09/02/2024. FINDINGS: Heart size upper limits of normal.. Mild residual central vascularcongestion, significantly improved since September 02. Bilateral symmetricprominence of perihilar regions may be prominent pulmonary vascularstructures or hilar lymphadenopathy. Line small area of opacity rightsuprahilar region. No pleural effusion or consolidation. Nopneumothorax. Stable small calcified granuloma left lower lobe. Bony thorax intact, unremarkable. IMPRESSION: 1. Borderline cardiomegaly with mild central vascular congestion;significantly improved since September 02.. 2. Small area of opacity right infrahilar region may representconcomitant right lower lobe pneumonia. 3. Bilateral rounded hilar prominence; dilated hilar vascular structuresversus lymphadenopathy.. 4. Continued follow-up to resolution. Referred By: Interpreted By: Joya Francisco DO, 09/06/2024 10:29 PM us Roberto [facility] Final Resul t * CT ORBITS WO CON (09/06/2024 9:59 PM CDT) Anatomical Region Laterality Modality Orbits Computed Tomogra phy 09/06/2024 10:3 0 PM CDT Impressions 09/06/2024 10:31 PM CDT IMPRESSION: 1. Left periorbital soft tissue swelling with no underlying acute facial bone fracture or orbital abnormality. Referred By: Interpreted By: Hayder Chance MD, 09/06/2024 10:30 PM Narrative 09/06/2024 10:31 PM CDT [address] [address] EXAMINATION: CT of the orbits EXAM DATE/TIME: 09/06/2024 9:42 PM REASON FOR EXAM: hematoma Swelling and bruising around the left eye after a fall on the . COMPARISON: Head CT 09/02/2024 and 09/06/2024 TECHNIQUE: Axial CT images of the orbits were obtained without the use of IV contrast agent. Subsequent coronal and sagittal reformatted sequences are created for evaluation. A dose lowering technique was used for this procedure, which may include, but is not limited to, dose reduction technique, automated exposure control, iterative reconstruction, ALARA (As Low As Reasonably Achievable), or Image Gently techniques. FINDINGS: Nasal bones, nasal spine, orbital rims, nasal septum, pterygoid plates, and zygomatic arches are all intact. Temporomandibular joints are located. Mastoid air cells are clear. Paranasal sinuses are clear. Ostiomeatal units are patent. Nasal septum is midline. The globes are symmetric in size and appropriately located. No lens displacement. Retrobulbar fat is clean bilaterally. There is left periorbital soft tissue swelling. This all remains preseptal. No radiopaque foreign body appreciated. Limited evaluation of intracranial contents unremarkable. Extraocular muscles are symmetric in size and appropriately positioned. Procedure Note Hayder Chance MD - 09/06/2024 [address] [place], [place] [address] EXAMINATION: CT of the orbits EXAM DATE/TIME: 09/06/2024 9:42 PM REASON FOR EXAM: hematoma Swelling and bruising around the left eye after a fall on the . COMPARISON: Head CT 09/02/2024 and 09/06/2024 TECHNIQUE: Axial CT images of the orbits were obtained without the use ofIV contrast agent. Subsequent coronal and sagittal reformatted sequencesare created for evaluation. A dose lowering technique was used for thisprocedure, which may include, but is not limited to, dose reductiontechnique, automated exposure control, iterative reconstruction, ALARA (AsLow As Reasonably Achievable), or Image Gently techniques. FINDINGS: Nasal bones, nasal spine, orbital rims, nasal septum, pterygoidplates, and zygomatic arches are all intact. Temporomandibular joints arelocated. Mastoid air cells are clear. Paranasal sinuses are clear.Ostiomeatal units are patent. Nasal septum is midline. The globes aresymmetric in size and appropriately located. No lens displacement.Retrobulbar fat is clean bilaterally. There is left periorbital softtissue swelling. This all remains preseptal. No radiopaque foreign bodyappreciated. Limited evaluation of intracranial contents unremarkable.Extraocular muscles are symmetric in size and appropriately positioned. IMPRESSION: 1. Left periorbital soft tissue swelling with no underlying acute facialbone fracture or orbital abnormality. Referred By: Interpreted By: Hayder Chance MD, 09/06/2024 10:30 PM us Roberto JACINTO CT Final Resul t * (ABNORMAL) BASIC METABOLIC PANEL (09/04/2024 7:10 AM CDT) GLUCOSE 94 70 - 99 MG/DL 09/04/2024 7:44 AM CDT [facility] BUN 23(H) 7 - 18 MG/DL 09/04/2024 7:44 AM T [facility] CREATININE S/P/B 1.24 0.7 - 1.3 MG/DL 09/04/2024 7:44 AM CDT [facility] SODIUM S/P/B 139 136 - 145 MMOL/L 09/04/2024 7:44 AM CDT [facility] POTASSIUM S/P/B 4.0 3.5 - 5.1 MMOL/L 09/04/2024 7:44 AM CDT [facility] CHLORIDE S/P/B 106 97 - 115 MMOL/L 09/04/2024 7:44 AM CDT [facility] CO2 28.1 21 - 32 MMOL/L 09/04/2024 7:44 AM CDT [facility] CALCIUM S/P/B 8.9 8.5 - 10.1 MG/DL 09/04/2024 7:44 AM CDT [facility] ANION GAP 4.9 2 - 10 MMOL/L 09/04/2024 7:44 AM T [facility] BUN CREATININE RATIO 18.5 6 - 26 09/04/2024 7:44 AM T [facility] GFR ESTIMATE 64(L) >90 ML/MIN/1.7 3 M2 09/04/2024 7:44 AM T [facility] Comment: NOTE: eGFR is not calculated for patients <18 years of age or gender unknown. This is an estimated GFR calculation using the new CKD EPI creatinine equation without race and so does not require a correction factor for race. This estimated GFR should not be used for calculating drug doses. 09/04/2024 7:10 AM CDT us Jeanette Tracey MD LABORATORY Final Result [facility] [address] [place] [address], [place] [phone] * (ABNORMAL) LIPID PANEL (09/03/2024 8:41 AM CDT) CHOLESTEROL 95 <200 MG/DL 09/03/2024 10:23 AM CDT [facility] TRIGLYCERIDES 67 <150 MG/DL 09/03/2024 10:23 AM CDT [facility] HDL 25(L) >40.0 MG/DL 09/03/2024 10:23 AM CDT [facility] LDL (CALCULATED) 57 <100 MG/DL 09/04/19 10:23 AM CDT [facility] NON HDL CHOLESTEROL 70 <130 MG/DL 09/03 10:23 AM CDT [facility] CHOL/HDL RATIO 3.8 0.0 - 4.5 09/03/2024 10:23 AM CDT [facility] VLDL CALCULATION 13 5 - 55 MG/DL 09/03/2024 10:23 AM CDT [facility] LIPID INTERPRETATION 09/03/2024 10:23 AM CDT [facility] Comment: [facility] CONCENSUS REPORT RECOMMENDATIONS: ADULT CHILD LOW RISK: CHOLESTEROL <200 <170 TRIGLYCERIDE <150 --- HDL >=60 --- LDL <100 <110 BORDERLINE: CHOLESTEROL 200-239 170-199 TRIGLYCERIDE 150-199 --- HDL 40-59 --- LDL 100-159 110-129 HIGH RISK: CHOLESTEROL >=240 >=200 TRIGLYCERIDE >=200 --- HDL <40 --- LDL >=160 >=130 09/03/2024 8:41 AM CDT Charisse Madsen [employer]PUT[employer] SPECIALIST LAB[facility]AT[facility] Final Resul t [facility] [address] [place] [address], [place] [phone] * PHOSPHORUS, INORGANIC PHOSPHATE (09/03/2024 8:41 AM CDT) Only the most recent of2 resultswithin the time period is included. PHOSPHORUS 3.2 2.5 - 4.9 MG/DL 09/03/2024 10:23 AM CDT [facility] 09/03/2024 8:41 AM CDT Charisse Madsen [employer] SPECIALIST [facility] Final Resul t [facility] [address] [place] [address], [place] [phone] * (ABNORMAL) DRUG SCREEN RAPID (09/03/2024 12:29 AM CDT) AMPHETAMINE (U) POSITIVE(A) NEGATIVE 09/04/19 25 12:51 AM CDT [facility] BARBITURATES SCREEN (U) NEGATIVE NEGATIVE 09/03/2024 12:51 AM CDT [facility] BENZODIAZEPINES SCREEN (U) POSITIVE(A) NEGATIVE 09/03/2024 12:51 AM CDT [facility] CANNABINOIDS SCREEN (U) NEGATIVE NEGATIVE 09/03/2024 12:51 AM CDT [facility] COCAINE METABOLITES (U) NEGATIVE NEGATIVE 09/03/2024 12:51 AM CDT [facility] METHADONE (U) NEGATIVE NEGATIVE 09/03/2024 12:51 AM CDT [facility] OPIATE SCREEN (U) NEGATIVE NEGATIVE 025 12:51 AM CDT [facility] PHENCYCLIDINE PCP (U) NEGATIVE NEGATIVE 09/03/2024 12:51 AM CDT [facility] Comment: NOTE: RESULTS OF THIS DRUG SCREEN SHOULD BE USED FOR MEDICAL PURPOSES ONLY AND NOT FOR LEGAL OR EMPLOYMENT PURPOSES. POSITIVE RESULTS ARE NOT CONFIRMED. MEDICATIONS CONTAINING EPHEDRINE MAY CAUSE FALSE POSITIVE AMPHETAMINE CALL , LAB, TO REQUEST CONFIRMATION TESTING. IF CREATININE IS <40 mg/dL. RECOLLECTION IS SUGGESTED. AMPHETAMINE- 500 NG/ML BARBITURATE- 200 NG/ML BENZODIAZEPINES- 200 NG/ML THC- 50 NG/ML COCAINE- 150 NG/ML METHADONE- 300 NG/ML OPIATE- 300 MG/ML PCP- 25 NG/ML CREATININE (U) 111.0 39 - 259 MG/DL 09/03/2024 12:51 AM CDT [facility] URINE SPECIMEN / Unknown 09/03/2024 12:29 AM CDT Stephanie Dobson DO URINE ORDERABLES Final Resul t Performing Organization Address City/[facility]/ZIP Co de Phone Number [facility] [address] [place] [address], [place] [phone] * MAGNESIUM (09/02/2024 11:26 PM CDT) MAGNESIUM 1.8 1.8 - 2.4 MG/DL 09/03/2024 2:20 AM CDT [facility] 09/02/2024 11:2 6 PM CDT Charisse Madsen [employer] SPECIALIST [facility] Final Resul t [facility] [address] [place] [address], [place] [phone] * Critical Care (09/02/2024 10:56 PM CDT) Narrative Cyndi Gipson MD - 09/02/2024 10:56 PM CDT Cyndi Gipson MD 09/03/2024 12:00 AM Critical Care Performed by: Bennie Hernandez PA-C Authorized by: Bennie Hernandez PA-C Critical care provider statement: Critical care time (minutes): 38 Critical care start time: 09/02/2024 10:50 PM Critical care end time: 09/02/2024 11:28 PM Critical care time was exclusive of: Separately billable procedures and treating other patients and teaching time Critical care was necessary to treat or prevent imminent or life-threatening deterioration of the following conditions: Cardiac failure (acute chf) Critical care was time spent personally by me on the following activities: Blood draw for specimens, development of treatment plan with patient or surrogate, evaluation of patient's response to treatment, examination of patient, obtaining history from patient or surrogate, ordering and performing treatments and interventions, ordering and review of laboratory studies, ordering and review of radiographic studies, pulse oximetry, re-evaluation of patient's condition and review of old charts I assumed direction of critical care for this patient from another provider in my specialty: no Care discussed with: admitting provider Bennie Hernandez PA-C PROCEDURE/MINOR SURGICAL OR DERABLES Final Result * XR KNEE LT 3V (09/02/2024 1:21 PM CDT) Anatomical Region Laterality Modality Knee Radiographic Sharonda ging 09/02/2024 1:33 PM CDT Impressions 09/02/2024 1:37 PM CDT IMPRESSION: Anterior knee soft tissue swelling/edema with probable very small suprapatellar effusion. No apparent fracture or dislocation. Correlate with clinical exam. Ordered By: ANCELMO LEVY Interpreted By: John Diaz, 09/02/2024 1:33 PM Narrative 09/02/2024 1:[address] PM [address] [address] IMAGING STUDIES: XR KNEE LT 3V DATE: 09/02/2024 1:10 PM HISTORY: pain 69-year-old male. Reportedly fell at approximately 1100 hours onto concrete. Left knee pain. Left forehead hematoma. COMPARISON: None. DISCUSSION: AP, oblique, and crosstable lateral views of the left knee. Soft tissue swelling/edema in the prepatellar and infrapatellar region. Probable very small suprapatellar effusion. Hypertrophic changes at the tibial tuberosity at the patellar tendon insertion. No apparent acute fracture or dislocation. Procedure Note John Diaz MD - 09/02/2024 [facility] [address] [place], [place] [address] IMAGING STUDIES: XR KNEE LT 3VDATE: 09/02/2024 1:10 PM HISTORY: pain 69-year-old male. Reportedly fell at approximately 1100hours onto concrete. Left knee pain. Left forehead hematoma. COMPARISON: None. DISCUSSION: AP, oblique, and crosstable lateral views of the left knee. Soft tissue swelling/edema in the prepatellar and infrapatellar region.Probable very small suprapatellar effusion. Hypertrophic changes at thetibial tuberosity at the patellar tendon insertion. No apparent acutefracture or dislocation. IMPRESSION: Anterior knee soft tissue swelling/edema with probable very smallsuprapatellar effusion. No apparent fracture or dislocation. Correlatewith clinical exam. Ordered By: ANCELMO LEVY Interpreted By: John Diaz, 09/02/2024 1:33 PM Ancelmo Levy MD GENERAL IMAGING Final Result from Last 3 Months Insurance MEDICAID MEDICARE Advance Directives * Full Code (Latest Code Status on File) Date Activated Date Inactivated Comments 09/03/2024 12:11 AM 09/04/2024 11:35 AM Care Teams Storeroom Supervisor Relationship Specialty Start Date End Date None, Provider, PCP - General UNKNOWN PHYSICIAN SPECIALTY 09/02/24
--- OUTSIDE RECORDS SUMMARY | 2024-11-06 02:25 | XMS_ITS | Referral Summary ---
Author Organization [facility] Office Center Address [address] [place] [address] Care Team Providers Care Director Of Occupational Health Name Role Phone Zion Gaspar MD Unavailable Lashae Marcano NP Primary Care Provider [phone] Encounters Date Type Department Care Team Description 10/14/2024 TCC Subsequent Outreach [facility] [address] [place] [id number] Alissa Lewis 10/06/2024 2:49 AM CDT - 10/11/2024 12:56 PM CDT Hospital Encounter [facility] 4 [facility]4 [place] [address] Michael Escudero Jr., MD Medavaram, Atul, MD Dhillon, Rupinderjit Singh, MD Al Furgani, Mahmud Mustafa, MD Mustafa, Saim, DO Acute on chronic congestive heart failure, unspecified heart failure type (HCC) (Primary Dx); Cellulitis of right lower extremity; Amphetamine abuse (HCC); Elevated troponin; Pedal edema Discharge Disposition: Discharge to an Rehab facility 10/07/2024 TCC Inpatient Enrollment [facility] [address] [place] [id number] Alissa Lewis 10/06/2024 TCC Initial Eligibility Review [facility] [place] [address] Guillaume Butler RN 09/07/2024 Orders Only [facility] Medical [facility] Cardiology [address] [place] [phone] Jill Lundberg NP 09/02/2024 Orders Only [facility] Medical [facility] Cardiology [address] [place] [address] Adria Martínez MD 08/11/2024 1:05 AM CDT - 08/13/2024 8:00 PM CDT Hospital Encounter [address] [address] Kiel Oliveira MD Heath, MD Vashti Pierson, MD Kosta Uriarte, MD Agustin Vargas Che[place] Ho Jeffrey, MD Liu, Debbi Chand MD Acute on chronic congestive heart failure, unspecified heart failure type (HCC) (Primary Dx); NITA (acute kidney injury) Discharge Disposition: Left Against Medical Advice from Last 3 Months Allergies Active Allergy [...] every 12 (twelve) hours 180 tablet 02/13/20 Active furosemide (LASIX) 40 mg tabletIndications :Primary [...] to cardiology 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 Male hypogonadism 01/05/2020 Vitamin D deficiency 06/28/2019 [...] Tobacco: Never Tobacco Cessation:Counseling Given: Not Answered [facility] Utilities Answer Date Recorded In the past 12 months has [employer], gas, oil, or water company threatened to [...] week 10/06/2024 How often do you attend hoahaoism or taoist serv ices? Never 10/06/2024 Do you belong [...] any time in the past 12 m [facility], were you homeless or living in a custodial (including now)? Yes 10/06/2024 Personal Safety Answer Date Recorded Have you ever been in or are you currently in a harmful physical or emotional relationship or is someone making you feel afraid or unsafe? 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 Testing performed by: [address] [address] Blood 10/11/2024 5:26 AM CDT 10/11/2024 5:31 AM CDT us Danny Briseno MD LAB BLOOD ORDERABLES Final Res ult MARINO [address] [facility] [place] [address] * (ABNORMAL) CBC without differential (10/11/2024 5:26 AM CDT) Pathologist [facility] WBC 8.27 3.80 - 9.90 K/cumm Comment:Testing performed by : [address] [address] Hgb 14.9 13.0 - 17.5 g/dL [facility] Comment:Testing performed by : [address] [address] Hct 46.4 38.9 - 50.3 % MARINO Comment:Testing performed by : [address], [address] Plt 210 150 - 400 K/cumm MARINO Comment:Testing performed by : [address], [address] MPV 10.1 9.1 - 12.3 fL MARINO Comment:Testing performed by : [address], [address] RBC 4.82 4.30 - 5.80 M/cumm MARINO Comment:Testing performed by : [address], [address] MCV 96.3 81.3 - 96.4 fL MARINO Comment:Testing performed by : [address], [address] MCH 30.9 27.1 - 33.3 pg MARINO Comment:Testing performed by : [address], [address] MCHC 32.1(L) 32.3 - 35.7 g/dL MARINO Comment:Testing performed by : [address], [address] RDW CV 15.8(H) 11.1 - 14.9 % MARINO Comment:Testing performed by : [address], [address] RDW SD 55.4(H) 35.7 - 48.1 fL MARINO Comment:Testing performed by : [address], [address] NRBC abs 0.00 0.00 - 0.01 K/cumm MARINO Comment:Testing performed by : [address], [address] Blood 10/11/2024 5:26 AM CDT 10/11/2024 5:31 AM CDT us Danny Briseno MD LAB BLOOD ORDERABLES Final Res ult CERNER [address] [facility] [place] [address] * (ABNORMAL) Basic metabolic panel (10/11/2024 5:26 AM CDT) Sodium 137 135 - 145 mmol/L Comment:Testing performed by : [address], [place]., [address] Potassium, pl 4.8 3.3 - 4.9 mmol/L MARINO Comment:Testing performed by : [address], [place]., [address] Chloride 101 97 - 110 mmol/L MARINO Comment:Testing performed by : [address], [place]., [address] CO2 24 22 - 32 mmol/L MARINO Comment:Testing performed by : [address], [place]., [address] Anion gap 12 2 - 15 mmol/L MARINO Comment:Testing performed by : [address], [place]., [address] BUN 43(H) 6 - 25 mg/dL MARINO Comment:Testing performed by : [address] [address] Creatinine 1.53(H) 0.80 - 1.30 mg/dL MARINO Comment:Testing performed by : [address], [place]., [address] Glucose 88 70 - 199 mg/dL MARINO [...] was last revised 2022. Testing performed by: [address], [place]., [address] Calcium 9.7 8.5 - 10.3 mg/dL [facility] Comment:Testing performed by : [facility], [address] [place] [address]., [address] Blood 10/11/2024 5:26 AM CDT 10/11/2024 5:31 AM CDT Danny Briseno MD LAB BLOOD ORDERABLES Final Res ult Performing Organization Address [facility] de Phone Number MARINO [address] [facility] [address] * (ABNORMAL) eGFR (10/10/2024 7:12 AM CDT) [...] was last reviewed 2021. Testing performed by: [facility], [address] [place] [address]., [address] Blood 10/10/2024 7:12 AM CDT 10/10/2024 7:45 AM CDT us Danny Briseno MD LAB BLOOD ORDERABLES Final Res ult Performing Organization Address [facility]/ZIP Co de Phone Number MARINO [address] [facility] [address] * (ABNORMAL) CBC without differential (10/10/2024 7:12 AM CDT) [facility] WBC 8.68 3.80 - 9.90 K/cumm Comment:Testing performed by : [address], [address] Hgb 14.6 13.0 - 17.5 g/dL MARINO Comment:Testing performed by : [address], [address] Hct 44.7 38.9 - 50.3 % MARINO Comment:Testing performed by : [address], [address] Plt 232 150 - 400 K/cumm MARINO Comment:Testing performed by : [address], [address] MPV 10.3 9.1 - 12.3 fL MARINO Comment:Testing performed by : [address], [address] RBC 4.73 4.30 - 5.80 M/cumm MARINO Comment:Testing performed by : [address], [address] MCV 94.5 81.3 - 96.4 fL MARINO Comment:Testing performed by : [address], [address] MCH 30.9 27.1 - 33.3 pg MARINO Comment:Testing performed by : [address], [address] MCHC 32.7 32.3 - 35.7 g/dL MARINO Comment:Testing performed by : [address], [address] RDW CV 15.6(H) 11.1 - 14.9 % MARINO Comment:Testing performed by : [address], [address] RDW SD 53.5(H) 35.7 - 48.1 fL MARINO Comment:Testing performed by : [address], [address] NRBC abs 0.00 0.00 - 0.01 K/cumm [facility] Comment:Testing performed by : [address] [address] Blood 10/10/2024 7:12 AM CDT 10/10/2024 7:45 AM CDT us Danny Briseno MD LAB BLOOD ORDERABLES Final Res ult Performing Organization Address [facility] Co de Phone Number [address] [employer] [place] [address] * Magnesium (10/10/2024 7:12 AM CDT) Pathologist [facility] Magnesium 2.4 1.4 - 2.5 mg/dL Comment:Testing performed by : [address] [address] Blood 10/10/2024 7:12 AM CDT 10/10/2024 7:45 AM CDT us Medardo Kendall MD LAB BLOOD ORDERABLE S Final Result Performing Organization Address [facility] de Phone Number [address] [address] * (ABNORMAL) Basic metabolic panel (10/10/2024 7:12 AM CDT) Pathologist [facility] Sodium 138 135 - 145 mmol/L Comment:Testing performed by : [address] [address] Potassium, pl 5.1(H) 3.3 - 4.9 mmol/L [facility] Comment:Testing performed by : [address] [address] Chloride 100 97 - 110 mmol/L [facility] Comment:Testing performed by : [address] [address] CO2 25 22 - 32 mmol/L [facility] Comment:Testing performed by : [address] [address] Anion gap 13 2 - 15 mmol/L [facility] Comment:Testing performed by : [address] [address] BUN 38(H) 6 - 25 mg/dL MARINO Comment:Testing performed by : [address] [address] Creatinine 1.49(H) 0.80 - 1.30 mg/dL MARINO Comment:Testing performed by : [address] [address] Glucose 83 70 - 199 mg/dL MARINO [...] was last revised 2022. Testing performed by: [address] [address] Calcium 9.8 8.5 - 10.3 mg/dL MARINO Comment:Testing performed by : [address] [address] Blood 10/10/2024 7:12 AM CDT 10/10/2024 7:45 AM CDT us Danny Briseno MD LAB BLOOD ORDERABLES Final Res ult MARINO [address] [facility] Department [place] [address] * eGFR (10/09/2024 11:53 AM CDT) eGFR [...] was last reviewed 2021. Testing performed by: [address] [address] Blood 10/09/2024 11:5 3 AM CDT 10/09/2024 11:57 AM CDT Danny Briseno MD LAB BLOOD ORDERABLES Final Res ult [facility] [address] [facility] Department [place] [address] * (ABNORMAL) CBC without differential (10/09/2024 11:53 AM CDT) WBC 7.74 3.80 - 9.90 K/cumm Comment:Testing performed by : [address] [address] Hgb 14.6 13.0 - 17.5 g/dL [facility] Comment:Testing performed by : [address] [address] Hct 44.9 38.9 - 50.3 % [facility] Comment:Testing performed by : [address] [address] Plt 196 150 - 400 K/cumm [facility] Comment:Testing performed by : [address] [address] MPV 9.8 9.1 - 12.3 fL [facility] Comment:Testing performed by : [address] [address] RBC 4.74 4.30 - 5.80 M/cumm [facility] Comment:Testing performed by : [address] [address] MCV 94.7 81.3 - 96.4 fL [facility] Comment:Testing performed by : [address] [address] MCH 30.8 27.1 - 33.3 pg [facility] Comment:Testing performed by : [address], [address] MCHC 32.5 32.3 - 35.7 g/dL MARINO Comment:Testing performed by : [address], [address] RDW CV 15.5(H) 11.1 - 14.9 % MARINO Comment:Testing performed by : [address], [address] RDW SD 53.1(H) 35.7 - 48.1 fL MARINO Comment:Testing performed by : [address], [address] NRBC abs 0.00 0.00 - 0.01 K/cumm MARINO Comment:Testing performed by : [address], [address] Blood 10/09/2024 11:5 3 AM CDT 10/09/2024 11:57 AM CDT us Danny Briseno MD LAB BLOOD ORDERABLES Final Res ult MARINO [address] [facility] Department [place] [address] * (ABNORMAL) Basic metabolic panel (10/09/2024 11:53 AM CDT) Sodium 135 135 - 145 mmol/L Comment:Testing performed by : [address], [address] Potassium, pl 4.8 3.3 - 4.9 mmol/L [facility] Comment:Testing performed by : [address] [address] Chloride 100 97 - 110 mmol/L MARINO Comment:Testing performed by : [address] [address] CO2 25 22 - 32 mmol/L MARINO Comment:Testing performed by : [address] [address] Anion gap 10 2 - 15 mmol/L MARINO Comment:Testing performed by : [address] [address] BUN 31(H) 6 - 25 mg/dL MARINO Comment:Testing performed by : [address] [address] Creatinine 1.21 0.80 - 1.30 mg/dL MARINO Comment:Testing performed by : [address] [address] Glucose 132 70 - 199 mg/dL MARINO [...] was last revised 2022. Testing performed by: [address] [address] Calcium 9.7 8.5 - 10.3 mg/dL MARINO Comment:Testing performed by : [address] [address] Blood 10/09/2024 11:5 3 AM CDT 10/09/2024 11:57 AM CDT us Danny Briseno MD LAB BLOOD ORDERABLES Final Res ult [facility] [address] [facility] Department [place] [address] * eGFR (10/08/2024 4:39 AM CDT) eGFR [...] was last reviewed 2021. Testing performed by: [address] [address] Blood 10/08/2024 4:39 AM CDT 10/08/2024 5:28 AM CDT us Danny Briseno MD LAB BLOOD ORDERABLES Final Res ult MARINO [address] [facility] Department [place] [address] * (ABNORMAL) CBC without differential (10/08/2024 4:39 AM CDT) [facility] WBC 7.77 3.80 - 9.90 K/cumm Comment:Testing performed by : [address] [address] Hgb 14.0 13.0 - 17.5 g/dL [facility] Comment:Testing performed by : [address] [address] Hct 43.5 38.9 - 50.3 % [facility] Comment:Testing performed by : [address] [address] Plt 206 150 - 400 K/cumm [facility] Comment:Testing performed by : [address] [address] MPV 10.0 9.1 - 12.3 fL [facility] Comment:Testing performed by : [address] [address] RBC 4.57 4.30 - 5.80 M/cumm [facility] Comment:Testing performed by : [address] [address] MCV 95.2 81.3 - 96.4 fL [facility] Comment:Testing performed by : [address] [address] MCH 30.6 27.1 - 33.3 pg [facility] Comment:Testing performed by : [address] [address] MCHC 32.2(L) 32.3 - 35.7 g/dL MARINO Comment:Testing performed by : [address] [address] RDW CV 15.4(H) 11.1 - 14.9 % MARINO Comment:Testing performed by : [address] [address] RDW SD 53.7(H) 35.7 - 48.1 fL MARINO Comment:Testing performed by : [address] [address] NRBC abs 0.00 0.00 - 0.01 K/cumm [facility] Comment:Testing performed by : [address] [address] Blood 10/08/2024 4:39 AM CDT 10/08/2024 5:30 AM CDT us Danny Briseno MD LAB BLOOD ORDERABLES Final Res ult MARINO [address] [facility] Department [place] [address] * Magnesium (10/08/2024 4:39 AM CDT) Magnesium 2.3 1.4 - 2.5 mg/dL Comment:Testing performed by : [address] [address] Blood 10/08/2024 4:39 AM CDT 10/08/2024 5:28 AM CDT us Medardo Kendall MD LAB BLOOD ORDERABLE S Final Result [facility] [address] [facility] Department [place] [address] * Basic metabolic panel (10/08/2024 4:39 AM CDT) Pathologist [facility] Sodium 135 135 - 145 mmol/L Comment:Testing performed by : [address] [address] Potassium, pl 4.6 3.3 - 4.9 mmol/L MARINO Comment:Testing performed by : [address] [address] Chloride 100 97 - 110 mmol/L MARINO Comment:Testing performed by : [address] [address] CO2 24 22 - 32 mmol/L MARINO Comment:Testing performed by : [address] [address] Anion gap 11 2 - 15 mmol/L MARINO Comment:Testing performed by : [address] [address] BUN 23 6 - 25 mg/dL MARINO Comment:Testing performed by : [address] [address] Creatinine 1.15 0.80 - 1.30 mg/dL MARINO Comment:Testing performed by : [address] [address] Glucose 103 70 - 199 mg/dL MARINO [...] was last revised 2022. Testing performed by: [facility], [address] [place] [address]., [address] Calcium 9.5 8.5 - 10.3 mg/dL [facility] Comment:Testing performed by : [facility], [address] [place] [address]., [address] Blood 10/08/2024 4:39 AM CDT 10/08/2024 5:28 AM CDT Danny Briseno MD LAB BLOOD ORDERABLES Final Res ult MARINO [address] [facility] Department of Laboratories [place], [place] [id number] * eGFR (10/07/2024 4:18 AM CDT) eGFR [...] was last reviewed 2021. Testing performed by: [address] [address] Blood 10/07/2024 4:18 AM CDT 10/07/2024 4:30 AM CDT us Danny Briseno MD LAB BLOOD ORDERABLES Final Res ult MARINO [address] [facility] [place] [address] * (ABNORMAL) CBC without differential (10/07/2024 4:18 AM CDT) WBC 6.86 3.80 - 9.90 K/cumm Comment:Testing performed by : [address] [address] Hgb 13.5 13.0 - 17.5 g/dL MARINO Comment:Testing performed by : [address] [address] Hct 42.4 38.9 - 50.3 % MARINO Comment:Testing performed by : [address] [address] Plt 168 150 - 400 K/cumm MARINO Comment:Testing performed by : [address] [address] MPV 9.4 9.1 - 12.3 fL MARINO Comment:Testing performed by : [address] [address] RBC 4.38 4.30 - 5.80 M/cumm MARINO Comment:Testing performed by : [address] [address] MCV 96.8(H) 81.3 - 96.4 fL MARINO Comment:Testing performed by : [address] [address] MCH 30.8 27.1 - 33.3 pg MARNIO Comment:Testing performed by : [address] [address] MCHC 31.8(L) 32.3 - 35.7 g/dL MARINO Comment:Testing performed by : [address] [address] RDW CV 15.3(H) 11.1 - 14.9 % MARINO Comment:Testing performed by : [address], [address] RDW SD 55.0(H) 35.7 - 48.1 fL MARINO Comment:Testing performed by : [address], [address] NRBC abs 0.00 0.00 - 0.01 K/cumm MARINO Comment:Testing performed by : [address], [address] Blood 10/07/2024 4:18 AM CDT 10/07/2024 4:30 AM CDT us Danny Briseno MD LAB BLOOD ORDERABLES Final Res ult Performing Organization Address [facility] Co de Phone Number [address] [place] [address] * Creatine kinase (CK), total (10/07/2024 4:18 AM CDT) Pathologist [facility] CK 170 40 - 300 Units/L Comment:Testing performed by : [address] [address] Blood 10/07/2024 4:18 AM CDT 10/07/2024 4:30 AM CDT Medardo Kendall MD LAB BLOOD ORDERABLE S Final Result Performing Organization Address [facility] Co de Phone Number [address] [place] [address] * (ABNORMAL) Lipid panel (10/07/2024 4:18 AM CDT) Pathologist [facility] Cholesterol 108 30 - 199 mg/dL Comment: [...] last revised on 2017. Testing performed by: [address] [address] Triglycerides 57 <=149 mg/dL MARINO Comment: Interpretive [...] last revised on 2017. Testing performed by: [address] [address] HDL 31(L) >=40 mg/dL MARINO Comment: Interpretive [...] last revised on 2017. Testing performed by: [address] [address] LDL, calculated 64 <=129 mg/dL MARINO Comment: [...] 2. NCEP Expert Panel. Circulation 2004;110:227 3. Mak M et al. ANGELES Cardiol. 2020 August 12;5(5):540-548. doi: 10.1001/jamacardio.2020.0013 Current Interpretive Data was last revised on 2023. Testing performed by: [address] [address] Non-HDL Cholesterol 77 mg/dL [facility] Comment: [...] last revised on 2017. Testing performed by: [address] [address] Chol/HDL ratio 3 [facility] Comment:Testing performed by : [address] [address] Blood 10/07/2024 4:18 AM CDT 10/07/2024 4:30 AM CDT us Macrina Marc NP LAB BLOOD ORDERABLES Final Result [facility] [address] [facility] Department [place] [address] * Basic metabolic panel (10/07/2024 4:18 AM CDT) Sodium 138 135 - 145 mmol/L Comment:Testing performed by : [address] [address] Potassium, pl 3.8 3.3 - 4.9 mmol/L MARINO Comment:Testing performed by : [address] [address] Chloride 101 97 - 110 mmol/L MARINO Comment:Testing performed by : [address], [place]., [address] CO2 28 22 - 32 mmol/L MARINO Comment:Testing performed by : [address], [place]., [address] Anion gap 9 2 - 15 mmol/L MARINO Comment:Testing performed by : [address] [address] BUN 22 6 - 25 mg/dL MARINO Comment:Testing performed by : [address], [place]., [address] Creatinine 1.21 0.80 - 1.30 mg/dL MARINO Comment:Testing performed by : [address] [address] Glucose 105 70 - 199 mg/dL MARINO [...] was last revised 2022. Testing performed by: [address], [place]., [address] Calcium 9.2 8.5 - 10.3 mg/dL MARINO Comment:Testing performed by : [address], [place]., [address] Blood 10/07/2024 4:18 AM CDT 10/07/2024 4:30 AM CDT us Danny Briseno MD LAB BLOOD ORDERABLES Final Res ult MARINO [address] [facility] Department [place] [address] * US Vein Duplex Lower Extremity Bilateral Complete (10/06/2024 3:34 PM CDT) Anatomical Region Laterality Modality Vascular Bilateral Ultrasound 10/06/2024 2:46 PM CDT Narrative 10/08/2024 12:45 PM CDT Lower Extremity Venous Report Patient Name: CELINA PAK W : 1955 (69y 4m) Gender: M Study Date: 10/06/2024 02:46:53 PM Net Architect: Tim Jordan Location: [id number] Order Provider: DANNY BRISENO Quality: Adequate Ref [...] Gender: M Study Date: 10/06/2024 02:46:53 PM Net Architect: Tim Jordan Location: [id number] Order Provider: DANNY BRISENO Quality: Adequate Ref [...] Chemistries, Arterial - (10/06/2024 11:38 AM CDT) Pathologist [facility] pH, art POC 7.50(H) 7.35 - 7.45 Comment:Testing performed by : [address] [address] pCO2, art POC 43 35 - 45 mmHg MAIRNO Comment:Testing performed by : [address] [address] pO2, art POC 98 83 - 108 mmHg MARINO Comment:Testing performed by : [address] [address] HCO3, art (Calc) POC 34(H) 20 - 30 mmol/L MARINO Comment:Testing performed by : [address] [place] [address] Base excess, art POC 9 mmol/L MARINO Comment: Interpretive Data No reference range established. Current interpretive data was last revised 2019. Testing performed by: [facility], [address] [place] [address]., [address] Blood 10/06/2024 11:3 8 AM CDT 10/06/2024 11:38 AM CDT Medardo Kendall MD LAB POCT ORDERABLES - DEVICE Final Result Performing Organization Address [facility] Co de Phone Number [place] [id number] [facility] [employer] [place] [address] * HIV 1/2 Antibody plus p24 Antigen Blood (10/06/2024 10:56 AM CDT) HIV 1/2 ab + p24 ag Nonreactive [...] GENERAL ORDERABLES Final Result Performing Organization Address [facility] Co de Phone Number [facility] [address] [place] [address] * Hepatitis panel, acute Blood (10/06/2024 10:56 AM CDT) Hep A IgM Nonreactive Nonreactive Comment: Interpretive Data: If Hep A IgM Ab is reported as Equivocal, a new sample should be drawn in two weeks for testing. Current interpretive data was last revised on 19. Hep B core IgM Nonreactive Nonreactive [facility] Comment: Interpretive Data If HepB Core IgM Ab is reported as Equivocal, a new sample should be drawn in two weeks for testing. Current interpretive data was last revised on 19. Hep C Ab Nonreactive Nonreactive MARINO Comment: Antibodies to HCV not detected. Does [...] LAB MICROBIOLOGY - GENERAL ORDERABLES Final Result MARINO [address] [facility] [place] [address] * (ABNORMAL) Troponin T high-sensitivity 6-hour (10/06/2024 9:23 AM CDT) Trop T hs 34(H) <=22 ng/L Comment: Interpretive Data For further hscTnT resources including the diagnostic algorithm and an aid in interpretation, copy and paste this link: [email or web address] Current Interpretive Data last revised 2020. Testing performed by: [address] [address] [address] Trop T hs delta -3 ng/L MARINO Comment:Testing performed by : [address] [address] Trop T hs interp Insignificant MARINO Comment:Testing performed by : [address] [address] Blood 10/06/2024 9:23 AM CDT 10/06/2024 9:42 AM CDT Michael Escudero Jr., MD LAB BLOOD ORDERABLES Fi nal Result Performing Organization Address [facility] de Phone Number MARINO [address] [address] * (ABNORMAL) Troponin T high-sensitivity 4-hour (10/06/2024 6:40 AM CDT) Trop T hs 31(H) <=22 ng/L Comment: Interpretive Data For further hscTnT resources including the diagnostic algorithm and an aid in interpretation, copy and paste this link: https://nrl.[employer].org/show/hsTrop Current Interpretive Data last revised 2020. Testing performed by: [address] [address] Trop T hs delta -6 ng/L MARINO Comment:Testing performed by : [address] [address] Trop T hs interp Equivocal MARINO Comment:Testing performed by : [address] [address] Blood 10/06/2024 6:40 AM CDT 10/06/2024 7:09 AM CDT Michael Escudero Jr., MD LAB BLOOD ORDERABLES Fi nal Result Performing Organization Address [facility] de Phone Number MARINO [address] [address] * (ABNORMAL) Troponin T high-sensitivity 2-hour (10/06/2024 4:50 AM CDT) Trop T hs 31(H) <=22 ng/L Comment: Interpretive Data For further hscTnT resources including the diagnostic algorithm and an aid in interpretation, copy and paste this link: https://nrl.[employer].org/show/hsTrop Current Interpretive Data last revised 2020. Testing performed by: [address] [address] Trop T hs delta -6 ng/L MARINO OLEARY Comment:Testing performed by : [facility], [address] [place] [address]., [address] Trop T hs interp Equivocal MARINO Comment:Testing performed by : [facility], [address] [place] [address]., [address] Blood 10/06/2024 4:50 AM CDT 10/06/2024 4:57 AM CDT us Michael Escudero Jr., MD LAB BLOOD ORDERABLES Fi nal Result MARINO OLEARY [address] [facility] Department [place] [address] * Blood culture Blood (10/06/2024 4:50 AM CDT) Report Final Report: No growth Comment:Testing performed by : [facility], [address] [place]., [address] Blood 10/06/2024 4:50 AM CDT 10/06/2024 8:22 [...] performance characteristics have been verified by the [facility] Microbiology Laboratory. For questions about this culture, contact the Microbiology Laboratory at [phone]. Interpretive data was last revised on 24. Michael Escudero Jr., MD LAB MICROBIOLOGY - GENE RAL ORDERABLES Final Result MARINO [address] [facility] Department [place] [address] * Blood culture Blood (10/06/2024 4:21 AM CDT) Report Final Report: No growth Comment:Testing performed by : [facility], [address] [place] [address] Blood 10/06/2024 4:21 AM CDT 10/06/2024 8:22 [...] performance characteristics have been verified by the [facility] Microbiology Laboratory. For questions about this culture, contact the Microbiology Laboratory at [phone]. Interpretive data was last revised on 24. us Michael Escudero Jr., MD LAB MICROBIOLOGY - [facility] ORDERABLES Final Result MARINO [address] [facility] Department of Laboratories [place], [place] [id number] * (ABNORMAL) Drugs of Abuse Screen, Urine without Confirmation (10/06/2024 3:58 AM CDT) Pathologist [facility] Amphetamine, ur Screen Positive, presumptive (A) CutOff 500ng/mL Comment: Interpretive Data - Amphetamines: Samples containing greater than 500 ng/mL d-methamphetamine or other cross-reacting amphetamine compounds are reported as positive. Amphetamine immunoassays are subject to significant false positive rates due to cross-reactivity of non-amphetamine drugs. Confirmatory testing required for definitive results. Current Interpretive Data was last reviewed 2022. Testing performed by: [address] [address] Barbiturates, ur Not Detected CutOff 200ng/mL MARINO Comment: Interpretive Data - Barbiturates: Samples containing greater than 200 ng/mL secobarbital or other cross-reacting barbiturate compounds are reported as positive. False positive and false negative results are possible. Confirmatory testing required for definitive results. Current Interpretive Data was last reviewed 2022. Testing performed by: [address] [address] Benzodiazepines, ur Screen Positive, presumptive (A) CutOff 100ng/mL MARINO Comment: Interpretive Data - Benzodiazepines: Samples containing greater than 100 ng/mL nordiazepam or other cross-reacting compounds are reported as positive. False positive and false negative results are possible. Confirmatory testing required for definitive results. Current Interpretive Data was last reviewed 2022. Testing performed by: [address] [address] Cannabinoids, ur Not Detected CutOff 50 ng/mL MARINO Comment: Interpretive Data - Cannabinoids: Samples containing greater than 50 ng/mL delta-9 THC -COOH or other cross- reacting compounds are reported as positive. False positive and false negative results are possible. Confirmatory testing required for definitive results. Current Interpretive Data was last reviewed 2022. Testing performed by: [address] [address] Cocaine, ur Not Detected CutOff 150ng/mL [facility] Comment: Interpretive Data - Cocaine: Samples containing greater than 150 ng/mL benzoylecgonine or other cross- reacting compounds are reported as positive. False positive and false negative results are possible. Confirmatory testing required for definitive results. Current Interpretive Data was last reviewed 2022. Testing performed by: [address] [address] Fentanyl, Ur Not Detected CutOff 5 ng/mL [facility] Comment: Interpretive Data - Fentanyl: Samples containing greater than 1 ng/mL fentanyl or other cross-reacting fentanyl compounds are reported as positive. False positive and false negative results are possible. Confirmatory testing required for definitive results. Current Interpretive Data was last reviewed 2022. Testing performed by: [facility], [address] [place] [address]., [address] Methadone, ur Not Detected CutOff 300ng/mL [facility] Comment: Interpretive Data - Methadone: Samples containing greater than 300 ng/mL d,l-methadone or other cross-reacting compounds are reported as positive. False positive and false negative results are possible. Confirmatory testing required for definitive results. Current Interpretive Data was last reviewed 2022. Testing performed by: [address] [address] Opiates, ur Not Detected CutOff 300ng/mL [facility] Comment: Interpretive Data - Opiates: Samples containing greater than 300 ng/mL morphine or other cross-reacting compounds are reported as positive. False positive and false negative results are possible. Confirmatory testing required for definitive results. Current Interpretive Data was last reviewed 2022. Testing performed by: [address] [address] Oxycodone, ur Not Detected CutOff 100ng/mL [facility] Comment: Interpretive Data - Oxycodone: Samples containing greater than 100 ng/mL oxycodone or other cross-reacting compounds are reported as positive. False positive and false negative results are possible. Confirmatory testing required for definitive results. Current Interpretive Data was last reviewed 2022. Testing performed by: [address] [address] Phencyclidine, ur Not Detected CutOff 25 ng/mL MARINO Comment: Interpretive Data - Phencyclidine: Samples containing greater than 25 ng/mL phencyclidine or other cross-reacting compounds are reported as positive. False positive and false negative results are possible. Confirmatory testing required for definitive results. Current Interpretive Data was last reviewed 2022. Testing performed by: [address] [address] Urine Creatinine 182 mg/dL MARINO Comment: Interpretive Data Urine Creatinine: < 10 mg/dL is extremely dilute = or > 10 but < 20 mg/dL is dilute = or > 20 mg/dL is normal Current Interpretive Data was last revised on 2017. Testing performed by: [address] [address] Urine 10/06/2024 3:58 AM CDT 10/06/2024 4:02 AM CDT Narrative [facility] - 10/06/2024 4:28 AM CDT Drug of Abuse screening is performed by immunoassay for medical purposes only. This is not to be used for Pain Management purposes. us Michael Escudero Jr., MD LAB URINE ORDERABLES nal Result MARINO [address] [facility] Department [place] [address] * XR Chest 1 Vw Portable (if [...] Molly Young M.D. SN: SN Report ID: [id number] Reading Location: [id number] Procedure Note Molly Young MD - 10/06/2024 [...] Molly Young M.D. SN: SN Report ID: [id number] Reading Location: [id number] Michael Escudero Jr., MD IMG XR PROCEDURES Final Result * ECG 12 lead (10/06/2024 2:42 AM CDT) [facility] Ventricular Rate EKG/Min 101 BPM [facility] Atrial Rate [address] [facility] MT-Interval (MSEC) [address] [facility] QRS-Interval (MSEC) [address] [facility] QT-Interval (MSEC) [address] [facility] QTc [address] [facility] P [place] [address] [facility] R [place] -[address] [facility] T [place] [address] [facility] Diagnosis Sinus tachycardia Possible Left atrial enlargement Left ventricular hypertrophy with QRS widening and repolarization abnormality Abnormal ECG When compared with ECG of 04-NOV-2023 08:09, Vent. rate has increased BY 43 BPM Confirmed by CAITLIN BOATENG M.D. ([id number]) on 10/07/2024 3:20:[address] [facility] 10/06/2024 2:42 AM CDT 10/07/2024 3:20 PM CDT us Michael Escudero Jr., MD ECG ORDERABLES Final R esult Performing Organization Address City/[facility] Co de Phone Number [facility] * (ABNORMAL) Troponin T high-sensitivity series (baseline, 2hr, 4hr, 6hr) (10/06/2024 2:40 AM CDT) Trop T hs 37(H) <=22 ng/L Comment: Interpretive Data For further hscTnT resources including the diagnostic algorithm and an aid in interpretation, copy and paste this link: https://nrl.testcatalog.org/show/hsTrop Current Interpretive Data last revised 2020. Testing performed by: [facility], [address] [place] [address]., [address] Blood 10/06/2024 2:40 AM CDT 10/06/2024 2:43 AM CDT us Michael Escudero Jr., MD LAB BLOOD ORDERABLES Fi nal Result MARINO [address] [facility] Department [place] [address] * (ABNORMAL) eGFR (10/06/2024 2:40 AM CDT) Pathologist [facility] eGFR 54(L) >=60 mL/min/1. 73 m2 Comment: [...] was last reviewed 2021. Testing performed by: [address] [address] Blood 10/06/2024 2:40 AM CDT 10/06/2024 2:43 AM CDT us Michael Escudero Jr., MD LAB BLOOD ORDERABLES nal Result MARINO [address] [facility] Department [place] [address] * (ABNORMAL) Differential, auto (10/06/2024 2:40 AM CDT) Pathologist [facility] Neutrophil abs 3.88 1.50 - 6.50 K/cumm Comment:Testing performed by : [address] [address] Imm gran abs 0.01 0.00 - 0.10 K/cumm MARINO Comment:Testing performed by : [address] [address] Lymphocyte abs 1.99 0.80 - 3.30 K/cumm MARINO Comment:Testing performed by : [address] [address] Monocyte abs 0.61 0.20 - 0.80 K/cumm [facility] Comment:Testing performed by : [address] [address] Eosinophil abs 0.54(H) 0.00 - 0.50 K/cumm [facility] Comment:Testing performed by : [address], [place]., [address] Basophil abs 0.06 0.00 - 0.10 K/cumm [facility] Comment:Testing performed by : [address] [address] Neutrophil pct 54.8 % [facility] Comment: Interpretive Data Percent cell count reference ranges are not reported, since discordance with absolute values may lead to misinterpretation of CBC data. Current Interpretive Data was last revised on 2017. Testing performed by: [address] [address] Imm gran pct 0.1 % [facility] Comment: Interpretive Data Percent cell count reference ranges are not reported, since discordance with absolute values may lead to misinterpretation of CBC data. Current Interpretive Data was last revised on 2017. Testing performed by: [address] [address] Lymphocyte pct 28.1 % [facility] Comment: Interpretive Data Percent cell count reference ranges are not reported, since discordance with absolute values may lead to misinterpretation of CBC data. Current Interpretive Data was last revised on 2017. Testing performed by: [address] [address] Monocyte pct 8.6 % [facility] Comment: Interpretive Data Percent cell count reference ranges are not reported, since discordance with absolute values may lead to misinterpretation of CBC data. Current Interpretive Data was last revised on 2017. Testing performed by: [address] [address] Eosinophil pct 7.6 % [facility] Comment: Interpretive Data Percent cell count reference ranges are not reported, since discordance with absolute values may lead to misinterpretation of CBC data. Current Interpretive Data was last revised on 2017. Testing performed by: [facility], [address] [place] [address]., [address] Basophil pct 0.8 % MARINO OLEARY Comment: Interpretive Data Percent cell count reference ranges are not reported, since discordance with absolute values may lead to misinterpretation of CBC data. Current Interpretive Data was last revised on 2017. Testing performed by: [facility], [address] [place] [address]., [address] Blood 10/06/2024 2:40 AM CDT 10/06/2024 2:43 AM CDT us Michael Escudero Jr., MD LAB BLOOD ORDERABLES Fi nal Result MARINO OLEARY [address] [facility] Department [place] [address] * (ABNORMAL) Pro B-type natriuretic peptide (10/06/2024 [...] Last Revised Date: 2017. Testing performed by: [address] [address] Blood 10/06/2024 2:40 AM CDT 10/06/2024 2:43 AM CDT us Michael Escudero Jr., MD LAB BLOOD ORDERABLES Fi nal Result [facility] [address] [facility] Department [place] [address] * (ABNORMAL) CBC with auto differential (10/06/2024 2:40 AM CDT) WBC 7.09 3.80 - 9.90 K/cumm Comment:Testing performed by : [address] [address] Hgb 12.8(L) 13.0 - 17.5 g/dL MARINO OLEARY Comment:Testing performed by : [address] [address] Hct 40.4 38.9 - 50.3 % MARINO Comment:Testing performed by : [address] [address] Plt 175 150 - 400 K/cumm MARINO Comment:Testing performed by : [address] [address] MPV 9.4 9.1 - 12.3 fL MARINO OLEARY Comment:Testing performed by : [address] [address] RBC 4.13(L) 4.30 - 5.80 M/cumm MARINO OLEARY Comment:Testing performed by : [address] [address] MCV 97.8(H) 81.3 - 96.4 fL MARINO OLEARY Comment:Testing performed by : [address] [address] MCH 31.0 27.1 - 33.3 pg MARINO OLEARY Comment:Testing performed by : [address] [address] MCHC 31.7(L) 32.3 - 35.7 g/dL MARINO OLEARY Comment:Testing performed by : [address] [address] RDW CV 15.4(H) 11.1 - 14.9 % MARINO OLEARY Comment:Testing performed by : [address] [address] RDW SD 55.1(H) 35.7 - 48.1 fL MARINO OLEARY Comment:Testing performed by : [address] [address] NRBC abs 0.00 0.00 - 0.01 K/cumm MARINO OLEARY Comment:Testing performed by : [address] [address] Blood 10/06/2024 2:40 AM CDT 10/06/2024 2:43 AM CDT Michael Escudero Jr., MD LAB BLOOD ORDERABLES Fi nal Result MARINO [facility]8 [facility] Department of Laboratories [place], [place] [id number] * (ABNORMAL) Comprehensive metabolic panel (10/06/2024 2:40 AM CDT) Sodium 142 135 - 145 mmol/L Comment:Testing performed by : [address] [address] Potassium, pl 3.9 3.3 - 4.9 mmol/L MARINO OLEARY Comment:Testing performed by : [address] [address] Chloride 104 97 - 110 mmol/L MARINO OLEARY Comment:Testing performed by : [address] [address] CO2 30 22 - 32 mmol/L MARINO OLEARY Comment:Testing performed by : [address] [address] Anion gap 8 2 - 15 mmol/L MARINO Comment:Testing performed by : [address] [address] BUN 19 6 - 25 mg/dL MARINO Comment:Testing performed by : [address] [address] Creatinine 1.43(H) 0.80 - 1.30 mg/dL MARINO Comment:Testing performed by : [address] [address] Glucose 90 70 - 199 mg/dL MARINO Comment: Interpretive [...] was last revised 2022. Testing performed by: [address] [address] Calcium 9.4 8.5 - 10.3 mg/dL MARINO Comment:Testing performed by : [address] [address] Bilirubin, total 0.8 0.1 - 1.2 mg/dL MARINO Comment:Testing performed by : [address] [address] Protein, pl 7.2 6.5 - 8.5 g/dL MARINO Comment:Testing performed by : [address] [address] Albumin 3.8 3.5 - 5.0 g/dL MARINO Comment:Testing performed by : [address] [address] Alk phos 93 40 - 130 Units/L MARINO Comment:Testing performed by : [address] [place] [address] ALT 30 7 - 55 Units/L MARINO OLEARY Comment:Testing performed by : [address] [address] AST 40 10 - 50 Units/L MARINO OLEARY Comment:Testing performed by : [facility], [address] [place] [address]., [address] Blood 10/06/2024 2:40 AM CDT 10/06/2024 2:43 AM CDT Michael Escudero Jr., MD LAB BLOOD ORDERABLES Fi nal Result [facility] [address] [facility] Department [place] [address] * Cardiology Document Scan (08/31/2024 10:54 AM [...] LAB BLOOD ORDERABLES Final R esult [facility] One [facility] Department [place] [address] * (ABNORMAL) Basic metabolic panel (08/13/2024 4:30 AM CDT) Sodium 140 135 - 145 mmol/L Potassium, pl 3.7 3.3 - 4.9 mmol/L [facility] Chloride 101 97 - 110 mmol/L [facility] CO2 33(H) 22 - 32 mmol/L [facility] Anion gap 6 2 - 15 mmol/L [facility] BUN 35(H) 6 - 25 mg/dL [facility] Creatinine 1.35(H) 0.80 - 1.30 mg/dL [facility] Glucose 125 70 - 199 mg/dL [facility] Comment: Interpretive Data Fasting glucose >/= [...] Calcium 9.2 8.5 - 10.3 mg/dL MARINO [facility] Blood 08/13/2024 4:30 AM CDT 08/13/2024 5:41 AM CDT us Debbi Joe MD LAB BLOOD ORDERABLES Final R esult [facility] [place] [address] * TRANSTHORACIC ECHO (TTE) COMPLETE W DOPPLER/CF W CONTRAST (08/12/2024 11:33 AM CDT) EF Mod BP 27 % CONS SCIMAGE Anatomical Region Laterality Modality Ultrasound 08/12/2024 10:2 4 AM CDT Narrative 08/12/2024 5:51 PM CDT [facility] [place] [address] Transthoracic Echocardiographic Report Patient Name: CELINA PAK W : 1955 (69y 2m) Gender: M Study Date: 08/12/2024 10:24:42 AM Ht(Inch): 72 Wt(Lb): 212.96 BSA: 2.22 Net Architect: Silva Angela Location: [id number] Order Provider: ALIYA VELEZ Heart Rate: 90 [...] Note Celina Rinaldi MD PhD - 08/12/2024 [facility] Cardiac Diagnostic Lab [address] [place] [id number] Transthoracic Echocardiographic Report Patient Name: CELINA PAK W : 1955 (69y 2m) Gender: M Study Date: 08/12/2024 10:24:42 AM Ht(Inch): 72 Wt(Lb): 212.96 BSA: 2.22 Net Architect: Silva Angela Location: [id number] Order Provider:ALIYA VELEZ Heart Rate: 90 BMI: [...] LA Length 4C 6.60 cm MV Decel Fpty384.12 msec [ 104.00 - 258.00 ] LA [...] mmHg RA Volume Index 50.89 ml/m2 MR SOA435.1 cm RVOT Diam 4.90 cm TR Peak Vel2.9 m/s [ 1.0 - 2.8 ] AoR Diam 2D 4.09 cm [ 3.10 - 3.70 ] TR Peak PG33.6 mmHg Ao Root Index 1.84 cm/m2 [ 1.00 - 2.00 ] Asc Ao Diam 2D3.67 cm Asc Ao Index1.65 cm/m2 Electronically Signed By: Celina Rinaldi MD 08/12/2024 5:51:27 PM CDT [facility] Jaime Velez MD CV ECHO PROCEDURES Antonette l Result * Lactate (08/12/2024 2:57 AM CDT) Lactate 0.8 0.7 - 2.0 mmol/L Blood 08/12/2024 2:57 AM CDT 08/12/2024 3:18 AM CDT Aliya Velez MD LAB BLOOD ORDERABLES Fi nal Result Performing Organization Address City/[facility] Co de Phone Number [facility] Department [employer] [place] [address] * (ABNORMAL) eGFR (08/11/2024 9:17 PM CDT) [...] ORDERABLES Fi nal Result Performing Organization Address City/[facility]/ZIP Co de Phone Number MARINO DEL ROSARIO [facility] Department [place] [address] * Magnesium (08/11/2024 9:17 PM CDT) Magnesium 1.9 1.4 - 2.5 mg/dL Blood 08/11/2024 9:17 PM CDT 08/11/2024 9:51 PM CDT Aliya Velez MD LAB BLOOD ORDERABLES Fi nal Result Performing Organization Address City/[facility]/ZIP Co de Phone Number [facility] Department [place] [address] * (ABNORMAL) Basic metabolic panel (08/11/2024 9:17 PM CDT) Sodium 141 135 - 145 mmol/L Potassium, pl 4.1 3.3 - 4.9 mmol/L [facility] Comment:Hemolyzed; Potassium value may be falsely elevated by as much as 0.3-0.5 mmol/L. Suggest redraw and reanalysis. Chloride 97 97 - 110 mmol/L [facility] CO2 33(H) 22 - 32 mmol/L [facility] Anion gap 11 2 - 15 mmol/L [facility] BUN 34(H) 6 - 25 mg/dL [facility] Creatinine 1.60(H) 0.80 - 1.30 mg/dL [facility] Glucose 81 70 - 199 mg/dL [facility] Comment: Interpretive Data Fasting glucose >/= [...] Calcium 9.3 8.5 - 10.3 mg/dL [facility] Blood 08/11/2024 9:17 PM CDT 08/11/2024 9:51 PM CDT Aliya Velez MD LAB BLOOD ORDERABLES Fi nal Result Performing Organization Address City/[facility]/ZIP Co de Phone Number MARINO [facility] One [facility] Department [place] [address] * (ABNORMAL) Drugs of Abuse Screen, Urine [...] Barbiturates, ur Not Detected CutOff 200ng/mL [facility] Comment: Interpretive Data - Barbiturates: Samples containing greater than 200 ng/mL secobarbital or other cross-reacting barbiturate compounds are reported as positive. False positive and false negative results are possible. Confirmatory testing required for definitive results. Current Interpretive Data was last reviewed 2022. Benzodiazepines, ur Not Detected CutOff 100ng/mL [facility] Comment: Interpretive Data - Benzodiazepines: Samples containing greater than 100 ng/mL nordiazepam or other cross-reacting compounds are reported as positive. False positive and false negative results are possible. Confirmatory testing required for definitive results. Current Interpretive Data was last reviewed 2022. Cannabinoids, ur Not Detected CutOff 50 ng/mL [facility] Comment: Interpretive Data - Cannabinoids: Samples containing greater than 50 ng/mL delta-9 THC -COOH or other cross- reacting compounds are reported as positive. False positive and false negative results are possible. Confirmatory testing required for definitive results. Current Interpretive Data was last reviewed 2022. Cocaine, ur Not Detected CutOff 150ng/mL [facility] Comment: Interpretive Data - Cocaine: Samples [...] 2023. Methadone, ur Not Detected CutOff 300ng/mL [facility] Comment: Interpretive Data - Methadone: Samples containing greater than 300 ng/mL d,l-methadone or other cross-reacting compounds are reported as positive. False positive and false negative results are possible. Confirmatory testing required for definitive results. Current Interpretive Data was last reviewed 2022. Opiates, ur Not Detected CutOff 300ng/mL [facility] Comment: Interpretive Data - Opiates: Samples containing greater than 300 ng/mL morphine or other cross-reacting compounds are reported as positive. False positive and false negative results are possible. Confirmatory testing required for definitive results. Current Interpretive Data was last reviewed 2022. Oxycodone, ur Not Detected CutOff 100ng/mL [facility] Comment: Interpretive Data - Oxycodone: Samples containing greater than 100 ng/mL oxycodone or other cross-reacting compounds are reported as positive. False positive and false negative results are possible. Confirmatory testing required for definitive results. Current Interpretive Data was last reviewed 2022. Phencyclidine, ur Not Detected CutOff 25 ng/mL [facility] Comment: Interpretive Data - Phencyclidine: Samples containing greater than 25 ng/mL phencyclidine or other cross-reacting compounds are reported as positive. False positive and false negative results are possible. Confirmatory testing required for definitive results. Current Interpretive Data was last reviewed 2022. Urine Creatinine 9 mg/dL [facility] Comment: Interpretive Data Urine Creatinine: < 10 mg/dL is extremely dilute = or > 10 but < 20 mg/dL is dilute = or > 20 mg/dL is normal Current Interpretive Data was last revised on 2017. Urine 08/11/2024 9:43 AM CDT 08/11/2024 10:49 AM CDT Narrative [facility] - 08/11/2024 11:54 AM CDT Drug of Abuse screening is performed by immunoassay for medical purposes only. This is not to be used for Pain Management purposes. If Detected, confirmation testing will be performed for Amphetamines, Cocaine, Fentanyl, Methadone, Opiates, Oxycodone or Phencyclidine. Lucie Tai NP LAB URINE ORDERABLES Final Result Performing Organization Address [facility] de Phone Number [facility] Department [place] [address] * (ABNORMAL) Amphetamine Confirmation, Urine (08/11/2024 9:43 AM CDT) Amphetamine Conf, Ur Does Not Confirm CutOff 150ng/mL Methamphetamine Conf, Ur Confirmed Positive(A) CutOff 150ng/mL [facility] MDA Conf, Ur Does Not Confirm CutOff 150ng/mL [facility] MDMA Conf, Ur Does Not Confirm CutOff 50 ng/mL [facility] MDEA Conf, Ur Does Not Confirm CutOff [...] Performance characteristics were determined by the [facility] in a manner consistent with CLIA requirement and has not been cleared or approved by the U.S. Food and Drug Administration. Current interpretive data was last revised on 2020. Urine 08/11/2024 9:43 AM CDT 08/11/2024 11:01 AM CDT Lucie Tai NP LAB URINE ORDERABLES Final Result Performing Organization Address [facility] Co de Phone Number [facility] Lee [facility] Department [place] [address] * Troponin I high-sensitivity 2-hour (08/11/2024 3:24 AM CDT) Trop I hs 25 <=35 ng/L Comment: Interpretive Data For further hscTnI resources including the diagnostic algorithm and an aid in interpretation, copy and paste this link: https://bjhlab.testcatalog.org/show/hsTrop-[email or web address] Current Interpretive Data last revised 2019. Trop I hs delta See Comment ng/L [facility] Comment:Inappropriate collec tion time to report a delta. Trop I hs pct delta See Comment % [facility] Comment:Inappropriate collec tion time to report a delta. Trop I hs interp See Comment [facility] Comment:Inappropriate collec tion time to report a delta. Blood 08/11/2024 3:24 AM CDT 08/11/2024 3:36 AM CDT us Melly Moctezuma MD LAB BLOOD ORDERABLES Final Result [facility] One [facility] Department [place] [address] * (ABNORMAL) Pro B-type natriuretic peptide (08/11/2024 [...] LAGUNA et.al. Eur Heart J. 2006:27:330-337. 2. Troughlopez RW, Mejias AM. J. AM Alejandro Cardiol: Cardiovasc Imag. 2009;2: 216- 225. Interpretive Data Last Revised Date: 2017. Blood 08/11/2024 1:27 AM CDT 08/11/2024 1:50 AM CDT us Caitlin Petit MD LAB BLOOD ORDERABLES Final Re sult [facility] One [facility] Department [place] [address] * XR Chest PA Lateral 2 Views [...] MD LAB BLOOD ORDERABLES Final Re sult [facility] Department [place] [address] * (ABNORMAL) eGFR (08/11/2024 12:11 AM CDT) [...] LAB BLOOD ORDERABLES Final Re sult [facility] One [facility] [place] [address] * Differential, auto (08/11/2024 12:11 AM CDT) Neutrophil abs 4.47 1.50 - 6.50 K/cumm Imm gran abs 0.02 0.00 - 0.10 K/cumm [facility] Lymphocyte abs 1.79 0.80 - 3.30 K/cumm [facility] Monocyte abs 0.50 0.20 - 0.80 K/cumm [facility] Eosinophil abs 0.24 0.00 - 0.50 K/cumm [facility] Basophil abs 0.07 0.00 - 0.10 K/cumm [facility] Neutrophil pct 63.0 % [facility] Comment: Interpretive Data Percent cell count reference ranges are not reported, since discordance with absolute values may lead to misinterpretation of CBC data. Current Interpretive Data was last revised on 2017. Imm gran pct 0.3 % [facility] Comment: Interpretive Data Percent cell count reference ranges are not reported, since discordance with absolute values may lead to misinterpretation of CBC data. Current Interpretive Data was last revised on 2017. Lymphocyte pct 25.2 % [facility] Comment: Interpretive Data Percent cell count reference ranges are not reported, since discordance with absolute values may lead to misinterpretation of CBC data. Current Interpretive Data was last revised on 2017. Monocyte pct 7.1 % [facility] Comment: Interpretive Data Percent cell count reference ranges are not reported, since discordance with absolute values may lead to misinterpretation of CBC data. Current Interpretive Data was last revised on 2017. Eosinophil pct 3.4 % [facility] Comment: Interpretive Data Percent cell count reference ranges are not reported, since discordance with absolute values may lead to misinterpretation of CBC data. Current Interpretive Data was last revised on 2017. Basophil pct 1.0 % [facility] Comment: Interpretive Data Percent cell count reference ranges are not reported, since discordance with absolute values may lead to misinterpretation of CBC data. Current Interpretive Data was last revised on 2017. Blood 08/11/2024 12:1 1 AM CDT 08/11/2024 12:27 AM CDT Kiel Oliveira MD LAB BLOOD ORDERABLES Final Re sult Performing Organization Address City/[facility]/ZIP Co de Phone Number [facility] Department [place] [address] * (ABNORMAL) CBC with auto differential (08/11/2024 12:11 AM CDT) WBC 7.09 3.80 - 9.90 K/cumm Hgb 13.2 13.0 - 17.5 g/dL [facility] Hct 41.2 38.9 - 50.3 % [facility] Plt 192 150 - 400 K/cumm [facility] MPV 10.0 9.1 - 12.3 fL [facility] RBC 4.20(L) 4.30 - 5.80 M/cumm [facility] MCV 98.1(H) 81.3 - 96.4 fL [facility] MCH 31.4 27.1 - 33.3 pg [facility] MCHC 32.0(L) 32.3 - 35.7 g/dL [facility] RDW CV 14.7 11.1 - 14.9 % [facility] RDW SD 53.1(H) 35.7 - 48.1 fL [facility] NRBC abs 0.00 0.00 - 0.01 K/cumm [facility] Blood 08/11/2024 12:1 1 AM CDT 08/11/2024 12:27 AM CDT Kiel Oliveira MD LAB BLOOD ORDERABLES Final Re sult [facility] Department [place] [address] * (ABNORMAL) Comprehensive metabolic panel (08/11/2024 12:11 AM CDT) Sodium 141 135 - 145 mmol/L Potassium, pl 4.8 3.3 - 4.9 mmol/L [facility] Chloride 103 97 - 110 mmol/L [facility] CO2 32 22 - 32 mmol/L [facility] Anion gap 6 2 - 15 mmol/L [facility] BUN 32(H) 6 - 25 mg/dL [facility] Creatinine 1.44(H) 0.80 - 1.30 mg/dL [facility] Glucose 103 70 - 199 mg/dL [facility] Comment: Interpretive Data Fasting glucose >/= [...] Calcium 9.5 8.5 - 10.3 mg/dL [facility] Bilirubin, total 0.8 0.1 - 1.2 mg/dL [facility] Protein, pl 7.3 6.5 - 8.5 g/dL [facility] Albumin 3.8 3.5 - 5.0 g/dL [facility] Alk phos 95 40 - 130 Units/L [facility] ALT 56(H) 7 - 55 Units/L [facility] AST 49 10 - 50 Units/L [facility] Blood 08/11/2024 12:1 1 AM CDT 08/11/2024 12:26 AM CDT us Kiel Oliveira MD LAB BLOOD ORDERABLES Final Re sult [facility] Department [place] [address] * ECG 12-LEAD (08/10/2024 11:56 PM CDT) Narrative [facility] - 08/10/2024 11:56 PM CDT Heron Cruz [...] ECG ORDERABLES Final Result Performing Organization Address City/[facility] Co de Phone Number [facility] * PSA screen (12/12/2023 10:00 AM CDT) [...] performed by: [facility], [address] [place] [address]., [id number] Blood 12/12/2023 10:0 0 AM CDT 12/12/2023 12:16 PM CDT us Lisa JACINTO LAB BLOOD ORDERABLES Fin al Result Performing Organization Address City/[facility] Co de Phone Number MARINO [address] [facility] [place] [address] from Last 3 Months or Most Recently Relevant to Health Maintenance Insurance [employer] [facility] Address: [address] [place] [id number] [facility] MEDICARE [facility] Address: [address] [place] [id number] [facility] Advance Directives For more information, please contact: [phone] * Full Code (Latest Code Status on File) Date Activated Date Inactivated Comments 10/06/2024 5:48 AM 10/11/2024 4:56 PM * Full Code Date Activated Date Inactivated Comments 08/11/2024 5:02 PM 08/14/2024 12:27 AM * Full Code Date Activated Date Inactivated Comments 11/03/2023 4:46 PM 11/06/2023 6:41 PM * Full Code Date Activated Date Inactivated Comments 07/18/2023 11:06 AM 07/19/2023 7:36 PM Care Teams Director Of Occupational Health Relationship Specialty Start Date End Date Lashae Marcano NP [address] [place] [address] PCP - General Family Practice 08/28/24 [place] [address] [address] Consulting Physician Cardiovascular Disease 07/19/23
--- OUTSIDE RECORDS SUMMARY | 2024-11-06 02:25 | XMS_ITS ---
Author Organization [facility] Address [address] [place] [address] Care Team Providers Care Mottler Operator Name Role Phone Govind Lawson Primary Care Provider [phone] Deepa Zaidi Unavailable [phone] REASON FOR VISIT CRU aT Social History Sex Assigned At : Social History Observation Description Sex Assigned At Male PRAPARE Question Answer Notes Date Completed/Updated: 10/11/2024 What is your current housing situation? I do not have housing (staying with others, in a hotel, in a mcc, living outside on the street, on a beach, or in a park) Are you worried about losing your housing? Yes What is the highest level of school that you have finished? More than high school What is your current work situation? 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 No What country are you from? I choose not to answe r this question Do you feel physically and e motionally safe where you currently live? No In the past year, have you b een afraid of your partner or ex-partner? No PRAPARE Score: 5 Enabling Services Provided? Yes Please specify Case Management Assessment First Visit Encounters Encounter Location Date Provider Diagnosis [facility] [address] [place] [address] 10/11/2024 Deepa Zaidi Assessments Encounter Date Diagnosis (ICD Code) Assessment Notes Treatment Notes Treatment Clinical Notes Section Notes 10/11/2024 Other Clinician met w ith client to assess needs for residential services. Clinician gathered information regarding historical presentation of mental health and substance use symptoms including withdrawal, HIV Risk assessment, psychiatric hospitalization history and presenting concern. Clinician conducted PHQ9 and CSSRS assessments as well as social drivers of health screening for the purposes of identifying additional service needs. Plan Of Treatment Treatment Notes Assessment Notes Other Clinician met with johanna bello to assess needs for residential services. Clinician gathered information regarding historical presentation of mental health and substance use symptoms including withdrawal, HIV Risk assessment, psychiatric hospitalization history and presenting concern. Clinician conducted PHQ9 and CSSRS assessments as well as social drivers of health screening for the purposes of identifying additional service needs. Progress Notes * Jeevan PAK WDOB: [birth year] (69 yo M)Acc No.[id number]:10/11/2024 UNLOCKED PROGRESS NOTE Patient: Jeevan KYLE Provider: Louisa Zaidi :1955 A ge:69 Y S ex:Male Date:10/11/2024 [facility] Pcp:Govind Lawson Subjective: * Chief Complaints: * 1 . CRU aTBC. * HPI: D epression Screening: PHQ-9 L ittle interest or pleasure in doing things N ot at all, F eeling down, depressed, or hopeless N ot at all, T rouble falling or staying asleep, or sleeping too much S everal days, F eeling tired or having little energy S everal , P oor appetite or overeating N ot at all, F eeling bad about yourself or that you are a failure, or have let yourself or your family down N ot at all, T rouble concentrating on things, such as reading the newspaper or watching television S everal , M oving or speaking so slowly that other people could have noticed; or the opposite, being so fidgety or restless that you have been moving around a lot more than usual M ore than half the days, T houghts that you would be better off or of hurting yourself in some way N ot at all, T otal Score 5 , I nterpretation M ild Depression. I ntervention D epression Screening Findings P osarley, F ollow-Up for Depression Jacob sanchez is admitted to a [facility] unit where their mental health is monitored - unit nursing staff have access to this encounter note. S creening: Chelsea Suicide Severity Rating Scale (LF) D o you want to initiate with S creener form, 1 . Wish to be : Have you wished you were or wished you could go to sleep and not wake up? N o, 2 . Suicidal Thoughts: Have you actually had any thoughts of killing yourself? N o, 6 . Suicide Behavior Question: Have you ever done anything,started to do anything, or prepared to end your life? N o, I nterpretation: L ow Risk. P sychiatric Assessment - Current Symptoms: Primary concern today x . H istory of Psychiatric Hospitalizations x . H istory of Psychiatric and Behavioral Health Treatment x . S ubstance Use: Current Use Patterns x . 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 L U: 2 days before going to hospital, detox at [facility]. . H x of Withdrawal x . H IV Risk Assessment Screening: Required for Residential Admits. A ssessment of Social Determinants of Health::: Has A PRAPARE Been Completed In The Past Year? H as a PRAPARE Been Completed In The Past Year? Y es, W as It Completed Today Using SmartForm? N o.? a TBC For Substance Use Services: Who Is Your Primary Care Provider? D o You Have A Primary Care Provider? Y es. D o You Have A Psychiatric Provider? D o You Have A Psychiatric Provider? Y es. D o You Have Any Other Professional Supports? D o You Have Any Other Professional Supports Y es. C onsent Forms Completed C onsent Forms C onsent To Treat, Health Care Providers, Emergency Contact, Probation/Hills. * Medical History: * Social History: S ocial Determinants: P RAPARE D ate Completed/Updated: 0 10/11/2024, W hat is your current housing situation? I do not have housing (staying with others, in a hotel, in a mcc, living outside on the street, on a beach, or in a park), A re you worried about losing your housing? Y es, W hat is the highest level of school that you have finished? M ore than high school, W hat is your current work situation? 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 N o, W hat country are you from? I choose not to answer this question, D o you feel physically and emotionally safe where you currently live? N o, I n the past year, have you been afraid of your partner or ex-partner? N o, P RAPARE Score: 5 , E nabling Services Provided? Y es,?Please specify C ase Management Assessment First Visit. Objective: * Vitals: * Examination: M ental Status Exam: ATTENTION AND CONCENTRATION x . APPEARANCE x . ATTITUDE AND BEHAVIOR x . EYE CONTACT x . AFFECT x . MOOD x . INSIGHT x . JUDGMENT x . G eneral Examination: E xplanation of presentation/need (staff to free text). Assessment: Plan: * Treatment: * Procedure Codes: 9 0791 PSYCH DIAGNOSTIC EVALUATION, Modifiers: AJ , T1016 Case management, CHS08 aT Service, CHS11 Insurance Application Assistance, CHS12 Housing Assistance, CHS13 Referring to Integrity Engineer * * Electronic signature of Nadia Zaidi on 11/06/2024 at 02:24 AM CDT Sign off status: Pending * Provider: Louisa Zaidi Date: 0 10/11/2024 Generated for Yue maharaj/Otoniel/James on: 0 11/06/2024 02:24 AM CDT History and Physical Notes * HPI (History of Present Illness) Category Sub-Category Detail Notes Category Not es Depression Screening PHQ-9 Little inte rest or pleasure in doing things: Not at all Feeling down, depressed, or hopeless: No t at all Trouble falling or staying asleep, or sl eeping too much: Several days Feeling tired or having little energy: S everal days Poor appetite or overeating: Not at all Feeling bad about yourself o r that you are a failure, or have let yourself or your family down: Not at all Trouble concentrating on thi ngs, such as reading the newspaper or watching television: Several days Moving or speaking so slowly that other people could have noticed; or the opposite, being so fidgety or restless that you have been moving around a lot more than usual: More than half the days Thoughts that you would be b jl off or of hurting yourself in some way: Not at all Total Score: 5 Interpretation: Mild Depression Intervention Depression Screening Findings: P ositive Follow-Up for Depression: Mynor linares is admitted to a [facility] residential unit where their mental health is monitored - unit nursing staff have access to this encounter note Psychiatric Assessment - Current Symptoms Primary conc perla today x History of Psychiatric Hospitalizations x History of Psychiatric and Behavioral He alth Treatment x Substance Use History of substance use Stress, homelessness, methamphetamine 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 JILLIAN: 2 days before going to hospital, detox at [facility]. Hx of Withdrawal x Substance of Choice x Current Use Patterns x Screening Chelsea Suicide Sev erity Rating Scale (LF) Do you want to initiate with: Screener form 1. Wish to be : Have you wished you were or wished you could go to sleep and not wake up?: No 2. Suicidal Thoughts: Have you actually had any thoughts of killing yourself?: No 6. Suicide Behavior Question: Have you ever done anything,started to do anything, or prepared to end your life?: No Interpretation:: Low Risk HIV Risk Assessment Screening Required for Residential Admits Assessment of Social Determinants of Health:: Has A PRAPARE Been Completed In The Past Year? Has a PRAPARE Been Completed In The Past Year?: Yes Was It Completed Today Using SmartNuAx?: No [facility] Who Is Your Primary Care Provider? Do You Have A Primary Care Provider?: Yes Do You Have A Psychiatric Provider? Do You Have A Psychiatric Provider?: Yes Do You Have Any Other Profes sional Supports? Do You Have Any Other Professional Supports: Yes Consent Forms Completed Consent Forms: C onsent To Treat, Health Care Providers, Emergency Contact, Probation/Hills Examination Category Sub-Category Detail Notes Category Not es General Examination Explanat ion of presentation/need (staff to free text) Mental Status Exam ATTENTION AND CONCENTRATION x APPEARANCE x ATTITUDE AND BEHAVIOR x EYE CONTACT x AFFECT x MOOD x INSIGHT x JUDGMENT x
--- OUTSIDE RECORDS SUMMARY | 2024-11-06 02:25 | XMS_ITS | Encounter Summary ---
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 Gender Identity Not on file Sexual [...] does not drink 07/18/2023 8:25 AM Dori Saucedo, PRINCE Q3: How often do you have six [...] documented as of this encounter Care Teams Stamp Redemption Clerk Relationship Specialty Start Date End Date Emre Andrade MD PCP - General Emergency Medicine 10/19/21 12/11/23 Lisa Kern PA [address] [address] PCP - General Family Medicine 12/12/23 08/11/24 Lashae Marcano NP [address] [place] [address] [place] [address] PCP - General Family Practice 08/28/24 [place] [address] [address] Consulting Physician Cardiovascular Disease 07/19/23 Alissa Lewis [facility] Community Health Worker (CHW) 10/06/24 10/17/24 documented as of this encounter
--- OUTSIDE RECORDS SUMMARY | 2024-11-06 02:25 | XMS_ITS ---
Author Organization [facility] Address [address] [place] [address] Care Team Providers Care Casing Man Name Role Phone Govind Lawson Primary Care Provider [phone] Rashaun Thurman [phone] REASON FOR VISIT admit lab work Social History Sex Assigned At : Social History Observation Description Sex Assigned At Male Encounters Encounter Location Date Provider Diagnosis [address] [place] [address] 10/13/2024 Rashaun Thurman Plan Of Treatment No Information Progress Notes * Jeevan PAK WDOB: [birth year] (69 yo M)Acc No.[id number]:10/13/2024 UNLOCKED PROGRESS NOTE Patient: Bladimir BURGOSNAVARRO Jeevan Carey Provider: Juan Francisco Thurman :1955 A ge:69 Y S ex:Male Date:10/13/2024 Address: [address] [facility] Pcp:Govind Lawson Check 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 Admit lab work. * Medical History: Objective: * Vitals: Assessment: Plan: * Treatment: * * Electronic signature of Clifton Thurman , [id number] on 11/06/2024 at 02:24 AM CDT Sign off status: Pending * Provider: Juan Francisco Thurman Date: 0 10/13/2024 Generated for Yue maharaj/Otoniel/eTransmitting on: 0 11/06/2024 02:24 AM CDT
--- NOTE | 2024-11-06 02:53 | ECG_ITS ---
Test Date: 2024-11-06 03:11:40 Measurements Intervals [place] Rate: 88 P: 48 ME: 187 QRS: -16 QRSD: 113 T: 126 QT: 386 QTc: 468 Interpretive Statements SINUS RHYTHM POSSIBLE LEFT ATRIAL ENLARGEMENT [-0.1mV P-WAVE IN V1/V2] LEFT VENTRICULAR HYPERTROPHY AND ST-T CHANGE [VOLTAGE CRITERIA PLUS ST/T ABNORMALITY] Compared to ECG 09/23/2024 20:06:32 Sinus tachycardia no longer present Intraventricular conduction delay no longer present T-wave abnormality no longer present Possible ischemia no longer present ST (T wave) deviation still present Electronically Signed On 11-07-2024 13:57:14 CDT by Eliezer Dias M.D.
[2024-11-06 03:26] LABS: Hematocrit 37.7 % (42.0-52.0); Hemoglobin 12.1 g/dL (14.0-18.0); Immature Granulocyte Percent A 0.2 % (0-0.5); Lymphocytes Absolute Auto 2.12 K/mm3 (0.9-3.2); Mean Corpuscular HGB Conc 32.1 g/dl (32-36); Mean Corpuscular Hemoglobin 31.1 pg (26-34); Mean Corpuscular Volume 96.9 fl (80-100); Nucleated Red Blood Cells Absolute Auto 0.000 K/mm3 (0.0-0.012); Nucleated Red Blood Cells Perc 0.0 % (0.0-0.2); Platelet Count Result 185 k/mm3 (150-375); Red Blood Count 3.89 M/mm3 (4.6-6.20); White Blood Count 6.3 K/mm3 (4.5-10.0)
[2024-11-06 03:30] LABS: Alanine Aminotransferase 26 U/L (6-50); Albumin Level 4.0 g/dL (3.5-5.1); Alkaline Phosphatase 84 U/L (38-126); Anion Gap 7 mmol/L (4-12); Aspartate Amino Transferase 38 U/L (17-59); Bilirubin,Total 1.8 mg/dL (0.2-1.3); Blood Urea Nitrogen 20 mg/dL (9-20); Calcium 9.2 mg/dL (8.4-10.2); Carbon Dioxide 23 mmol/L (22-30); Chloride 106 mmol/L (98-107); Estimated Glomerular Filt Rate 55; Glucose 89 mg/dL (65-110); Potassium 3.8 mmol/L (3.4-5.0); Sodium 136 mmol/L (137-145); Total Protein 7.4 g/dL (6.3-8.2)
[2024-11-06 03:37] LABS: NT Pro B Type Natriuretic Pept 16800 pg/mL (19.9-100)
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
[2024-11-06] MEDS: FUROSEMIDE INJ 40 MG/4 ML VIAL IV PUSH ×2 (05:27→16:25)
--- OUTSIDE RECORDS SUMMARY | 2024-11-06 05:33 | XMS_ITS | Encounter Summary ---
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 Gender Identity Not on file Sexual Orientation [...] documented as of this encounter Care Teams Rig Hand Relationship Specialty Start Date End Date Emre Andrade MD PCP - General Emergency Medicine 10/19/21 12/11/23 Lisa Kern PA [address] [address] PCP - General Family Medicine 12/12/23 08/11/24 Lashae Marcano NP [address] [place] [address] [place] [address] PCP - General Family Practice 08/28/24 [place] [id number] [address] Consulting Physician Cardiovascular Disease 07/19/23 Alissa Lewis [facility] Community Health Worker (CHW) 10/06/24 10/17/24 documented as of this encounter
--- OUTSIDE RECORDS SUMMARY | 2024-11-06 05:33 | XMS_ITS | Clinical Summary ---
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 Male hypogonadism 01/05/2020 Vitamin D deficiency 06/28/2019 [...] Care Team Description 10/14/2024 TCC Subsequent Outreach [facility] [address] [place] [address] Alissa [place] 10/07/2024 TCC Inpatient Enrollment [facility] [address] [place] [address] Alissa [place] 10/06/2024 2:49 AM CDT - 10/11/2024 12:56 PM CDT Hospital Encounter [facility] [address] Med [address] [place] [address] Michael Escudero Jr., MD Medavaram, Atul, MD Dhillon, MD Anoop Hickman Mahmud Mustafa, MD Mustafa, Coco, DO Acute on chronic congestive heart failure, unspecified heart failure type (HCC) (Primary Dx); Cellulitis of right lower extremity; Amphetamine abuse (HCC); Elevated troponin; Pedal edema Discharge Disposition: Discharge to an Rehab facility 10/06/2024 TCC Initial Eligibility Review [facility] [address] [place] [address] Guillaume Butler RN 09/07/2024 Orders Only [facility] [address] [place] [phone] Jill Lundberg NP 09/02/2024 Orders Only [facility] [address] [place] [phone] Adria Martínez MD 08/11/2024 1:05 AM CDT - 08/13/2024 8:00 PM CDT Hospital Encounter [address] [address] Kiel Oliveira MD Heath, MD Vashti Pierson, MD Kosta Uriarte, MD Agutsin Vargas, MD Heath Lane, Debbi Chand MD [...] Tobacco: Never Tobacco Cessation:Counseling Given: Not Answered [facility] Utilities Answer Date Recorded In the [...] week 10/06/2024 How often do you attend judaism or buddhist serv ices? Never 10/06/2024 Do you belong to any clubs o r organizations such as judaism groups, unions, fraternal or athletic groups, or [...] any time in the past 12 m [facility], were you homeless or living in a senior care (including now)? Yes 10/06/2024 Personal Safety Answer Date Recorded Have you ever been in or are you currently in a harmful physical or emotional relationship or is someone making you feel afraid or unsafe? 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 Testing performed by: [address] [address] Blood 10/11/2024 5:26 AM CDT 10/11/2024 5:31 AM CDT us Danny Briseno MD LAB BLOOD ORDERABLES Final Res ult [facility] [place] [address] * (ABNORMAL) CBC without differential (10/11/2024 5:26 AM CDT) WBC 8.27 3.80 - 9.90 K/cumm Comment:Testing performed by : [address] [address] Hgb 14.9 13.0 - 17.5 g/dL [facility] Comment:Testing performed by : [address] [address] Hct 46.4 38.9 - 50.3 % [facility] Comment:Testing performed by : [address] [address] Plt 210 150 - 400 K/cumm [facility] Comment:Testing performed by : [address] [address] MPV 10.1 9.1 - 12.3 fL [facility] Comment:Testing performed by : [address] [address] RBC 4.82 4.30 - 5.80 M/cumm [facility] Comment:Testing performed by : [address] [address] MCV 96.3 81.3 - 96.4 fL [facility] Comment:Testing performed by : [address] [address] MCH 30.9 27.1 - 33.3 pg [facility] Comment:Testing performed by : [address] [address] MCHC 32.1(L) 32.3 - 35.7 g/dL [facility] Comment:Testing performed by : [address] [address] RDW CV 15.8(H) 11.1 - 14.9 % [facility] Comment:Testing performed by : [address] [address] RDW SD 55.4(H) 35.7 - 48.1 fL [facility] Comment:Testing performed by : [address] [address] NRBC abs 0.00 0.00 - 0.01 K/cumm [facility] Comment:Testing performed by : [address] [address] Blood 10/11/2024 5:26 AM CDT 10/11/2024 5:31 AM CDT us Danny Briseno MD LAB BLOOD ORDERABLES Final Res ult [facility] 4819 [facility] Department of Laboratories [place], [place] [id number] * (ABNORMAL) Basic metabolic panel (10/11/2024 5:26 AM CDT) Sodium 137 135 - 145 mmol/L Comment:Testing performed by : [address] [address] Potassium, pl 4.8 3.3 - 4.9 mmol/L [facility] Comment:Testing performed by : [address] [address] Chloride 101 97 - 110 mmol/L [facility] Comment:Testing performed by : [address] [address] CO2 24 22 - 32 mmol/L [facility] Comment:Testing performed by : [address] [address] Anion gap 12 2 - 15 mmol/L [facility] Comment:Testing performed by : [address] [address] BUN 43(H) 6 - 25 mg/dL [facility] Comment:Testing performed by : [address] [address] Creatinine 1.53(H) 0.80 - 1.30 mg/dL [facility] Comment:Testing performed by : [address] [address] Glucose 88 70 - 199 mg/dL [facility] [...] was last revised 2022. Testing performed by: [address] [address] Calcium 9.7 8.5 - 10.3 mg/dL [facility] Comment:Testing performed by : [address] [address] Blood 10/11/2024 5:26 AM CDT 10/11/2024 5:31 AM CDT us Danny Briseno MD LAB BLOOD ORDERABLES Final Res ult [facility] 94[address] [facility] Department [place] [address] * (ABNORMAL) eGFR (10/10/2024 7:12 [...] was last reviewed 2021. Testing performed by: [address] [address] Blood 10/10/2024 7:12 AM CDT 10/10/2024 7:45 AM CDT us Danny Briseno MD LAB BLOOD ORDERABLES Final Res ult [facility] 3[address] [facility] Department [place] [address] * (ABNORMAL) CBC without differential (10/10/2024 7:12 AM CDT) Pathologist [facility] WBC 8.68 3.80 - 9.90 K/cumm Comment:Testing performed by : [address] [address] Hgb 14.6 13.0 - 17.5 g/dL [facility] Comment:Testing performed by : [address] [address] Hct 44.7 38.9 - 50.3 % [facility] Comment:Testing performed by : [address] [address] Plt 232 150 - 400 K/cumm [facility] Comment:Testing performed by : [address] [address] MPV 10.3 9.1 - 12.3 fL [facility] Comment:Testing performed by : [address] [address] RBC 4.73 4.30 - 5.80 M/cumm [facility] Comment:Testing performed by : [address] [address] MCV 94.5 81.3 - 96.4 fL [facility] Comment:Testing performed by : [address], [address] MCH 30.9 27.1 - 33.3 pg [facility] Comment:Testing performed by : [address] [address] MCHC 32.7 32.3 - 35.7 g/dL [facility] Comment:Testing performed by : [address] [address] RDW CV 15.6(H) 11.1 - 14.9 % [facility] Comment:Testing performed by : [address], [address] RDW SD 53.5(H) 35.7 - 48.1 fL [facility] Comment:Testing performed by : [address] [address] NRBC abs 0.00 0.00 - 0.01 K/cumm [facility] Comment:Testing performed by : [address] [address] Blood 10/10/2024 7:12 AM CDT 10/10/2024 7:45 AM CDT us Danny Briseno MD LAB BLOOD ORDERABLES Final Res ult [facility] [address] [facility] Department of Laboratories [place], [place] [id number] * Magnesium (10/10/2024 7:12 AM CDT) Pathologist [facility] Magnesium 2.4 1.4 - 2.5 mg/dL Comment:Testing performed by : [address] [address] Blood 10/10/2024 7:12 AM CDT 10/10/2024 7:45 AM CDT Medardo Kendall MD LAB BLOOD ORDERABLE S Final Result [facility] [address] [facility] Department [place] [address] * (ABNORMAL) Basic metabolic panel (10/10/2024 7:12 AM CDT) Pathologist [facility] Sodium 138 135 - 145 mmol/L Comment:Testing performed by : [address] [address] Potassium, pl 5.1(H) 3.3 - 4.9 mmol/L [facility] Comment:Testing performed by : [address] [address] Chloride 100 97 - 110 mmol/L [facility] Comment:Testing performed by : [address] [address] CO2 25 22 - 32 mmol/L [facility] Comment:Testing performed by : [address] [address] Anion gap 13 2 - 15 mmol/L [facility] Comment:Testing performed by : [address] [address] BUN 38(H) 6 - 25 mg/dL [facility] Comment:Testing performed by : [address] [address] Creatinine 1.49(H) 0.80 - 1.30 mg/dL [facility] Comment:Testing performed by : [address] [address] Glucose 83 70 - 199 mg/dL [facility] [...] was last revised 2022. Testing performed by: [facility], [address] [place] [address]., [address] Calcium 9.8 8.5 - 10.3 mg/dL [facility] Comment:Testing performed by : [facility], [address] [place] [address]., [address] Blood 10/10/2024 7:12 AM CDT 10/10/2024 7:45 AM CDT us Danny Briseno MD LAB BLOOD ORDERABLES Final Res ult [facility] [address] [facility] Department [place] [address] * eGFR (10/09/2024 11:53 AM CDT) eGFR [...] was last reviewed 2021. Testing performed by: [address] [address] Blood 10/09/2024 11:5 3 AM CDT 10/09/2024 11:57 AM CDT us Danny Briseno MD LAB BLOOD ORDERABLES Final Res ult [facility] [address] [facility] Department [place] [address] * (ABNORMAL) CBC without differential (10/09/2024 11:53 AM CDT) WBC 7.74 3.80 - 9.90 K/cumm Comment:Testing performed by : [address] [address] Hgb 14.6 13.0 - 17.5 g/dL [facility] Comment:Testing performed by : [address] [address] Hct 44.9 38.9 - 50.3 % [facility] Comment:Testing performed by : [address] [address]192 Plt 196 150 - 400 K/cumm [facility] Comment:Testing performed by : [address] [address] MPV 9.8 9.1 - 12.3 fL [facility] Comment:Testing performed by : [address] [address] RBC 4.74 4.30 - 5.80 M/cumm [facility] Comment:Testing performed by : [address] [address] MCV 94.7 81.3 - 96.4 fL [facility] Comment:Testing performed by : [address] [address] MCH 30.8 27.1 - 33.3 pg [facility] Comment:Testing performed by : [address] [address] MCHC 32.5 32.3 - 35.7 g/dL [facility] Comment:Testing performed by : [address] [address] RDW CV 15.5(H) 11.1 - 14.9 % [facility] Comment:Testing performed by : [address] [address] RDW SD 53.1(H) 35.7 - 48.1 fL [facility] Comment:Testing performed by : [address] [address] NRBC abs 0.00 0.00 - 0.01 K/cumm [facility] Comment:Testing performed by : [address] [address] Blood 10/09/2024 11:5 3 AM CDT 10/09/2024 11:57 AM CDT us Danny Briseno MD LAB BLOOD ORDERABLES Final Res ult [facility] Department [place] [address] * (ABNORMAL) Basic metabolic panel (10/09/2024 11:53 AM CDT) Sodium 135 135 - 145 mmol/L Comment:Testing performed by : [address] [address] Potassium, pl 4.8 3.3 - 4.9 mmol/L [facility] Comment:Testing performed by : [address] [address] Chloride 100 97 - 110 mmol/L [facility] Comment:Testing performed by : [address] [address] CO2 25 22 - 32 mmol/L [facility] Comment:Testing performed by : [address] [address] Anion gap 10 2 - 15 mmol/L [facility] Comment:Testing performed by : [address] [address] BUN 31(H) 6 - 25 mg/dL [facility] Comment:Testing performed by : [address] [address] Creatinine 1.21 0.80 - 1.30 mg/dL [facility] Comment:Testing performed by : [address] [address] Glucose 132 70 - 199 mg/dL [facility] [...] was last revised 2022. Testing performed by: [address] [address] Calcium 9.7 8.5 - 10.3 mg/dL [facility] Comment:Testing performed by : [address] [address] Blood 10/09/2024 11:5 3 AM CDT 10/09/2024 11:57 AM CDT us Danny Briseno MD LAB BLOOD ORDERABLES Final Res ult [facility] [address] [facility] Department [place] [address] * eGFR (10/08/2024 4:39 AM CDT) eGFR [...] was last reviewed 2021. Testing performed by: [address] [address] Blood 10/08/2024 4:39 AM CDT 10/08/2024 5:28 AM CDT us Danny Briseno MD LAB BLOOD ORDERABLES Final Res ult [facility] Department of Laboratories [place], [place] [id number] * (ABNORMAL) CBC without differential (10/08/2024 4:39 AM CDT) WBC 7.77 3.80 - 9.90 K/cumm Comment:Testing performed by : [address] [address] Hgb 14.0 13.0 - 17.5 g/dL [facility] Comment:Testing performed by : [address] [address]367 Hct 43.5 38.9 - 50.3 % [facility] Comment:Testing performed by : [address] [address]2381 Plt 206 150 - 400 K/cumm [facility] Comment:Testing performed by : [address] [address]194 MPV 10.0 9.1 - 12.3 fL [facility] Comment:Testing performed by : [address] 11776 RBC 4.57 4.30 - 5.80 M/cumm [facility] Comment:Testing performed by : [address] [address] MCV 95.2 81.3 - 96.4 fL [facility] Comment:Testing performed by : [address], [address] MCH 30.6 27.1 - 33.3 pg [facility] Comment:Testing performed by : [address] [address]86 MCHC 32.2(L) 32.3 - 35.7 g/dL [facility] Comment:Testing performed by : [address], [address] RDW CV 15.4(H) 11.1 - 14.9 % [facility] Comment:Testing performed by : [address], [address] RDW SD 53.7(H) 35.7 - 48.1 fL [facility] Comment:Testing performed by : [address], [address] NRBC abs 0.00 0.00 - 0.01 K/cumm [facility] Comment:Testing performed by : [address], [address] Blood 10/08/2024 4:39 AM CDT 10/08/2024 5:30 AM CDT us Danny Briseno MD LAB BLOOD ORDERABLES Final Res ult Performing Organization Address [facility] [[email or web address]] de Phone Number [place] [id number] [facility] Department [place] [address] * Magnesium (10/08/2024 4:39 AM CDT) Magnesium 2.3 1.4 - 2.5 mg/dL Comment:Testing performed by : [address] [address] Blood 10/08/2024 4:39 AM CDT 10/08/2024 5:28 AM CDT us Medardo Kendall MD LAB BLOOD ORDERABLE S Final Result Performing Organization Address City/[facility]/ZIP Co de Phone Number [facility] 45[address] [facility] Department [place] [address] * Basic metabolic panel (10/08/2024 4:39 AM CDT) Sodium 135 135 - 145 mmol/L Comment:Testing performed by : [facility], [address] [place] [address], [place]., [address] Potassium, pl 4.6 3.3 - 4.9 mmol/L [facility] Comment:Testing performed by : [address], [place]., [address] Chloride 100 97 - 110 mmol/L [facility] Comment:Testing performed by : [address], [place]., [address] CO2 24 22 - 32 mmol/L [facility] Comment:Testing performed by : [address], [place]., [address] Anion gap 11 2 - 15 mmol/L [facility] Comment:Testing performed by : [address] [address] BUN 23 6 - 25 mg/dL [facility] Comment:Testing performed by : [address], [place]., [address] Creatinine 1.15 0.80 - 1.30 mg/dL [facility] Comment:Testing performed by : [address] [address] Glucose 103 70 - 199 mg/dL [facility] [...] was last revised 2022. Testing performed by: [address], [place]., [address] Calcium 9.5 8.5 - 10.3 mg/dL [facility] Comment:Testing performed by : [facility], [address] [place] [address]., [address] Blood 10/08/2024 4:39 AM CDT 10/08/2024 5:28 AM CDT us Danny Briseno MD LAB BLOOD ORDERABLES Final Res ult Performing Organization Address [facility] Co de Phone Number [facility] [address] * eGFR (10/07/2024 4:18 AM CDT) eGFR [...] was last reviewed 2021. Testing performed by: [facility], [address] [place] [address]., [address] Blood 10/07/2024 4:18 AM CDT 10/07/2024 4:30 AM CDT us Danny Briseno MD LAB BLOOD ORDERABLES Final Res ult Performing Organization Address City/[facility]/ZIP Co de Phone Number [facility] [address] [facility] [place] [address] * (ABNORMAL) CBC without differential (10/07/2024 4:18 AM CDT) [facility] WBC 6.86 3.80 - 9.90 K/cumm Comment:Testing performed by : [address] [address] Hgb 13.5 13.0 - 17.5 g/dL [facility] Comment:Testing performed by : [address], [address] Hct 42.4 38.9 - 50.3 % [facility] Comment:Testing performed by : [address], [address] Plt 168 150 - 400 K/cumm [facility] Comment:Testing performed by : [address], [address] MPV 9.4 9.1 - 12.3 fL [facility] Comment:Testing performed by : [address], [address] RBC 4.38 4.30 - 5.80 M/cumm [facility] Comment:Testing performed by : [address], [address] MCV 96.8(H) 81.3 - 96.4 fL [facility] Comment:Testing performed by : [address], [address] MCH 30.8 27.1 - 33.3 pg [facility] Comment:Testing performed by : [address], [address] MCHC 31.8(L) 32.3 - 35.7 g/dL [facility] Comment:Testing performed by : [address], [address] RDW CV 15.3(H) 11.1 - 14.9 % [facility] Comment:Testing performed by : [address], [address] RDW SD 55.0(H) 35.7 - 48.1 fL [facility] Comment:Testing performed by : [address], [address] NRBC abs 0.00 0.00 - 0.01 K/cumm [facility] Comment:Testing performed by : [address] [address] Blood 10/07/2024 4:18 AM CDT 10/07/2024 4:30 AM CDT us Danny Briseno MD LAB BLOOD ORDERABLES Final Res ult Performing Organization Address City/[facility] Co de Phone Number [address] [place] [address] * Creatine kinase (CK), total (10/07/2024 4:18 AM CDT) CK 170 40 - 300 Units/L Comment:Testing performed by : [address] [address] Blood 10/07/2024 4:18 AM CDT 10/07/2024 4:30 AM CDT us Medardo Kendall MD LAB BLOOD ORDERABLE S Final Result Performing Organization Address [facility] Co de Phone Number [address] [address] * (ABNORMAL) Lipid panel (10/07/2024 4:18 AM [...] last revised on 2017. Testing performed by: [address] [address] Triglycerides 57 <=149 mg/dL [facility] Comment: Interpretive [...] last revised on 2017. Testing performed by: [address] [address] HDL 31(L) >=40 mg/dL [facility] Comment: Interpretive [...] last revised on 2017. Testing performed by: [address] [address] LDL, calculated 64 <=129 mg/dL [facility] Comment: [...] last revised on 2023. Testing performed by: [address] [address] Non-HDL Cholesterol 77 mg/dL [facility] Comment: [...] last revised on 2017. Testing performed by: [address] [address] Chol/HDL ratio 3 [facility] Comment:Testing performed by : [address] [address] Blood 10/07/2024 4:18 AM CDT 10/07/2024 4:30 AM CDT Macrina Marc NP LAB BLOOD ORDERABLES Final Result [facility] [address] [facility] Department [place] [address] * Basic metabolic panel (10/07/2024 4:18 AM CDT) Sodium 138 135 - 145 mmol/L Comment:Testing performed by : [address] [address] Potassium, pl 3.8 3.3 - 4.9 mmol/L [facility] Comment:Testing performed by : [address] [address] Chloride 101 97 - 110 mmol/L [facility] Comment:Testing performed by : [address] [place]., [address] CO2 28 22 - 32 mmol/L [facility] Comment:Testing performed by : [address] [address] Anion gap 9 2 - 15 mmol/L [facility] Comment:Testing performed by : [address] [address] BUN 22 6 - 25 mg/dL [facility] Comment:Testing performed by : [address] [address] Creatinine 1.21 0.80 - 1.30 mg/dL [facility] Comment:Testing performed by : [address] [address] Glucose 105 70 - 199 mg/dL [facility] [...] was last revised 2022. Testing performed by: [address] [address] Calcium 9.2 8.5 - 10.3 mg/dL [facility] Comment:Testing performed by : [address] [address] Blood 10/07/2024 4:18 AM CDT 10/07/2024 4:30 AM CDT us Danny Briseno MD LAB BLOOD ORDERABLES Final Res ult [facility] 24[address] [facility] Department of Laboratories [place], [place] [id number] * US Vein Duplex Lower Extremity Bilateral Complete (10/06/2024 3:34 PM CDT) Anatomical Region Laterality Modality Vascular Bilateral Ultrasound 10/06/2024 2:46 PM CDT Narrative 10/08/2024 12:45 PM CDT Lower Extremity Venous Report Patient Name: CELINA PAK W : 1955 (69y 4m) Gender: M Study Date: 10/06/2024 02:46:53 PM Software Test Analyst: Tim Jordan Location: [id number] Order Provider: DANNY BRISENO Quality: Adequate Ref [...] veins. Provider Notification: Prelim results entered into [facility] study notes. CONCLUSIONS: 1. There is no [...] Gender: M Study Date: 10/06/2024 02:46:53 PM Software Test Analyst: Tim Jordan Location: [id number] Order Provider: DANNY BRISENO Quality: Adequate Ref [...] 7.35 - 7.45 Comment:Testing performed by : [address], [address] pCO2, art POC 43 35 - 45 mmHg [facility] Comment:Testing performed by : [address] [address] pO2, art POC 98 83 - 108 mmHg [facility] Comment:Testing performed by : [address] [address] HCO3, art (Calc) POC 34(H) 20 - 30 mmol/L [facility] Comment:Testing performed by : [address] [address] Base excess, art POC 9 mmol/L [facility] Comment: Interpretive Data No reference range established. Current interpretive data was last revised 2019. Testing performed by: [address] [address] Blood 10/06/2024 11:3 8 AM CDT 10/06/2024 11:38 AM CDT us Medardo Kendall MD LAB POCT ORDERABLES - DEVICE Final Result [facility] [address] [facility] Department [place] [address] * HIV 1/2 Antibody plus p24 Antigen Blood (10/06/2024 10:56 AM CDT) Pathologist [facility] HIV 1/2 ab + p24 ag Nonreactive [...] GENERAL ORDERABLES Final Result Performing Organization Address City/State/[facility] Co de Phone Number [facility] [address] [facility] [place] [address] * Hepatitis panel, acute Blood (10/06/2024 10:56 AM CDT) Pathologist [facility] Hep A IgM Nonreactive Nonreactive Comment: Interpretive Data: If Hep A IgM Ab is reported as Equivocal, a new sample should be drawn in two weeks for testing. Current interpretive data was last revised on 19. Hep B core IgM Nonreactive Nonreactive [facility] Comment: Interpretive Data If HepB Core IgM Ab is reported as Equivocal, a new sample should be drawn in two weeks for testing. Current interpretive data was last revised on 19. Hep C Ab Nonreactive Nonreactive [facility] Comment: Antibodies to HCV not detected. Does [...] GENERAL ORDERABLES Final Result Performing Organization Address City/[facility]/ZIP Co de Phone Number MAR[facility] [address] [address] * (ABNORMAL) Troponin T high-sensitivity 6-hour (10/06/2024 9:23 AM CDT) Trop T hs 34(H) <=22 ng/L Comment: Interpretive Data For further hscTnT resources including the diagnostic algorithm and an aid in interpretation, copy and paste this link: [email or web address].testcatalog.org/show/[email or web address] Current Interpretive Data last revised 2020. Testing performed by: [facility], [address] [place] [address]., [address] Trop T hs delta -3 ng/L [facility] Comment:Testing performed by : [facility], [address] [place] [address]., [address] Trop T hs interp Insignificant [facility] Comment:Testing performed by : [facility], [address] [place] [address]., [address] Blood 10/06/2024 9:23 AM CDT 10/06/2024 9:42 AM CDT us Michael Escudero Jr., MD LAB BLOOD ORDERABLES Fi nal Result Performing Organization Address [facility]/ZIP Co de Phone Number [facility] [address] [address] * (ABNORMAL) Troponin T high-sensitivity 4-hour (10/06/2024 6:40 AM CDT) Trop T hs 31(H) <=22 ng/L Comment: Interpretive Data For further hscTnT resources including the diagnostic algorithm and an aid in interpretation, copy and paste this link: [email or web address]/[email or web address] Current Interpretive Data last revised 2020. Testing performed by: [facility], [address] [place] [address]., [address] Trop T hs delta -6 ng/L MARINO Comment:Testing performed by : [address] [address] Trop T hs interp Equivocal MARINO Comment:Testing performed by : [address] [address] Blood 10/06/2024 6:40 AM CDT 10/06/2024 7:09 AM CDT us Michael Escudero Jr., MD LAB BLOOD ORDERABLES Fi nal Result Performing Organization Address [facility] Phone Number ROSELYNKYLAH [address] [facility] [place], [place] [id number] * (ABNORMAL) Troponin T high-sensitivity 2-hour (10/06/2024 4:50 AM CDT) Trop T hs 31(H) <=22 ng/L Comment: Interpretive Data For further hscTnT resources including the diagnostic algorithm and an aid in interpretation, copy and paste this link: https://nrl.[employer].org/show/hsTrop Current Interpretive Data last revised 2020. Testing performed by: [address] [address] Trop T hs delta -6 ng/L MARINO Comment:Testing performed by : [address] [address] Trop T hs interp Equivocal MARINO Comment:Testing performed by : [address] [address] Blood 10/06/2024 4:50 AM CDT 10/06/2024 4:57 AM CDT us Michael Escudero Jr., MD LAB BLOOD ORDERABLES Fi nal Result Performing Organization Address [facility]/ZIP Co de Phone Number MARINO [address] [facility] [place] [address] * Blood culture Blood (10/06/2024 4:50 AM CDT) Report Final Report: No growth Comment:Testing performed by : [facility], [address] [facility], [place]., [address] Blood 10/06/2024 4:50 AM CDT 10/06/2024 8:22 [...] performance characteristics have been verified by the [facility] Microbiology Laboratory. For questions about this culture, contact the Microbiology Laboratory at [phone]. Interpretive data was last revised on 24. us Michael Escudero Jr., MD LAB MICROBIOLOGY - GENE RAL ORDERABLES Final Result Performing Organization Address City/[facility] Co de Phone Number MARINO [address] [facility] [place] [address] * Blood culture Blood (10/06/2024 4:21 AM CDT) Report Final Report: No growth Comment:Testing performed by : [facility], [address] [facility], [place]., [address] Blood 10/06/2024 4:21 AM CDT 10/06/2024 8:22 [...] performance characteristics have been verified by the [facility] Microbiology Laboratory. For questions about this culture, contact the Microbiology Laboratory at [phone]. Interpretive data was last revised on 24. Michael Escudero Jr., MD LAB MICROBIOLOGY - [facility] ORDERABLES Final Result MARINO [address] [facility] Department [place] [address] * (ABNORMAL) Drugs of Abuse Screen, Urine without Confirmation (10/06/2024 3:58 AM CDT) [facility] Amphetamine, ur Screen Positive, presumptive (A) CutOff 500ng/mL Comment: Interpretive Data - Amphetamines: Samples containing greater than 500 ng/mL d-methamphetamine or other cross-reacting amphetamine compounds are reported as positive. Amphetamine immunoassays are subject to significant false positive rates due to cross-reactivity of non-amphetamine drugs. Confirmatory testing required for definitive results. Current Interpretive Data was last reviewed 2022. Testing performed by: [facility], [address] [place] [address]., [address] Barbiturates, ur Not Detected CutOff 200ng/mL [facility] Comment: Interpretive Data - Barbiturates: Samples containing greater than 200 ng/mL secobarbital or other cross-reacting barbiturate compounds are reported as positive. False positive and false negative results are possible. Confirmatory testing required for definitive results. Current Interpretive Data was last reviewed 2022. Testing performed by: [facility], [address] [place] [address], [place]., [address] Benzodiazepines, ur Screen Positive, presumptive (A) CutOff 100ng/mL [facility] Comment: Interpretive Data - Benzodiazepines: Samples containing greater than 100 ng/mL nordiazepam or other cross-reacting compounds are reported as positive. False positive and false negative results are possible. Confirmatory testing required for definitive results. Current Interpretive Data was last reviewed 2022. Testing performed by: [facility], [address] [place] [address]., [address] Cannabinoids, ur Not Detected CutOff 50 ng/mL [facility] Comment: Interpretive Data - Cannabinoids: Samples containing greater than 50 ng/mL delta-9 THC -COOH or other cross- reacting compounds are reported as positive. False positive and false negative results are possible. Confirmatory testing required for definitive results. Current Interpretive Data was last reviewed 2022. Testing performed by: [address] [address] Cocaine, ur Not Detected CutOff 150ng/mL [facility] Comment: Interpretive Data - Cocaine: Samples containing greater than 150 ng/mL benzoylecgonine or other cross- reacting compounds are reported as positive. False positive and false negative results are possible. Confirmatory testing required for definitive results. Current Interpretive Data was last reviewed 2022. Testing performed by: [address] [address] Fentanyl, Ur Not Detected CutOff 5 ng/mL [facility] Comment: Interpretive Data - Fentanyl: Samples containing greater than 1 ng/mL fentanyl or other cross-reacting fentanyl compounds are reported as positive. False positive and false negative results are possible. Confirmatory testing required for definitive results. Current Interpretive Data was last reviewed 2022. Testing performed by: [address] [address] Methadone, ur Not Detected CutOff 300ng/mL [facility] Comment: Interpretive Data - Methadone: Samples containing greater than 300 ng/mL d,l-methadone or other cross-reacting compounds are reported as positive. False positive and false negative results are possible. Confirmatory testing required for definitive results. Current Interpretive Data was last reviewed 2022. Testing performed by: [address] [address] Opiates, ur Not Detected CutOff 300ng/mL [facility] Comment: Interpretive Data - Opiates: Samples containing greater than 300 ng/mL morphine or other cross-reacting compounds are reported as positive. False positive and false negative results are possible. Confirmatory testing required for definitive results. Current Interpretive Data was last reviewed 2022. Testing performed by: [address] [address] Oxycodone, ur Not Detected CutOff 100ng/mL [facility] Comment: Interpretive Data - Oxycodone: Samples containing greater than 100 ng/mL oxycodone or other cross-reacting compounds are reported as positive. False positive and false negative results are possible. Confirmatory testing required for definitive results. Current Interpretive Data was last reviewed 2022. Testing performed by: [address] [address] Phencyclidine, ur Not Detected CutOff 25 ng/mL [facility] Comment: Interpretive Data - Phencyclidine: Samples containing greater than 25 ng/mL phencyclidine or other cross-reacting compounds are reported as positive. False positive and false negative results are possible. Confirmatory testing required for definitive results. Current Interpretive Data was last reviewed 2022. Testing performed by: [address] [address] Urine Creatinine 182 mg/dL MARINO Comment: Interpretive Data Urine Creatinine: < 10 mg/dL is extremely dilute = or > 10 but < 20 mg/dL is dilute = or > 20 mg/dL is normal Current Interpretive Data was last revised on 2017. Testing performed by: [facility], [address] [place] [address], [place]., [address] Urine 10/06/2024 3:58 AM CDT 10/06/2024 4:02 AM CDT Narrative MARINO OLEARY - 10/06/2024 4:28 AM CDT Drug of Abuse screening is performed by immunoassay for medical purposes only. This is not to be used for Pain Management purposes. us Michael Escudero Jr., MD LAB URINE ORDERABLES Fi nal Result MARINO [address] [facility] [place] [address] * XR Chest 1 Vw [...] Molly Young M.D. SN: SN Report ID: [id number] Reading Location: [id number] Procedure Note Molly Young MD - 10/06/2024 [...] Molly Young M.D. SN: SN Report ID: [id number] Reading Location: [id number] Michael Escudero Jr., MD IMG XR PROCEDURES Final Result * ECG 12 lead (10/06/2024 2:42 AM CDT) Ventricular Rate EKG/Min 101 BPM [facility] Atrial Rate 101 BPM [facility] WY-Interval (MSEC) 174 ms [facility] QRS-Interval (MSEC) 118 ms [facility] QT-Interval (MSEC) 388 ms [facility] QTc 503 ms [facility] P Davis 58 degrees [facility] R Davis -19 degrees [facility] T Davis 141 degrees [facility] Diagnosis Sinus tachycardia Possible Left atrial enlargement Left ventricular hypertrophy with QRS widening and repolarization abnormality Abnormal ECG When compared with ECG of 04-NOV-2023 08:09, Vent. rate has increased BY 43 BPM Confirmed by CAITLIN BOATENG M.D. ([id number]) on 10/07/2024 3:20:55 PM [facility] 10/06/2024 2:42 AM CDT 10/07/2024 3:20 PM CDT us Michael Escudero Jr., MD ECG ORDERABLES Final R esult Performing Organization Address City/[facility] Co de Phone Number [facility] * (ABNORMAL) Troponin T high-sensitivity series (baseline, 2hr, 4hr, 6hr) (10/06/2024 2:40 AM CDT) Trop T hs 37(H) <=22 ng/L Comment: Interpretive Data For further hscTnT resources including the diagnostic algorithm and an aid in interpretation, copy and paste this link: https://nrl.[employer].org/show/hsTrop Current Interpretive Data last revised 2020. Testing performed by: [facility], [address] [place] [address]., [address] Blood 10/06/2024 2:40 AM CDT 10/06/2024 2:43 AM CDT us Michael Escudero Jr., MD LAB BLOOD ORDERABLES Fi nal Result Performing Organization Address [facility] Co de Phone Number MARINO [address] [facility] [place] [address] * (ABNORMAL) eGFR (10/06/2024 2:40 [...] was last reviewed 2021. Testing performed by: [address] [address] Blood 10/06/2024 2:40 AM CDT 10/06/2024 2:43 AM CDT us Michael Escudero Jr., MD LAB BLOOD ORDERABLES Fi nal Result MARINO [facility] Department [place] [address] * (ABNORMAL) Differential, auto (10/06/2024 2:40 AM CDT) Neutrophil abs 3.88 1.50 - 6.50 K/cumm Comment:Testing performed by : [address] [address] Imm gran abs 0.01 0.00 - 0.10 K/cumm MARINO OLEARY Comment:Testing performed by : [address] [address] Lymphocyte abs 1.99 0.80 - 3.30 K/cumm MARINO Comment:Testing performed by : [address] [address] Monocyte abs 0.61 0.20 - 0.80 K/cumm MARINO Comment:Testing performed by : [address] [address] Eosinophil abs 0.54(H) 0.00 - 0.50 K/cumm MARINO OLEARY Comment:Testing performed by : [address] [address] Basophil abs 0.06 0.00 - 0.10 K/cumm MARINO Comment:Testing performed by : [address] [address] Neutrophil pct 54.8 % [facility] Comment: Interpretive Data Percent cell count reference ranges are not reported, since discordance with absolute values may lead to misinterpretation of CBC data. Current Interpretive Data was last revised on 2017. Testing performed by: [address] [address] Imm gran pct 0.1 % [facility] Comment: Interpretive Data Percent cell count reference ranges are not reported, since discordance with absolute values may lead to misinterpretation of CBC data. Current Interpretive Data was last revised on 2017. Testing performed by: [address] [address] Lymphocyte pct 28.1 % [facility] Comment: Interpretive Data Percent cell count reference ranges are not reported, since discordance with absolute values may lead to misinterpretation of CBC data. Current Interpretive Data was last revised on 2017. Testing performed by: [address] [address] Monocyte pct 8.6 % [facility] Comment: Interpretive Data Percent cell count reference ranges are not reported, since discordance with absolute values may lead to misinterpretation of CBC data. Current Interpretive Data was last revised on 2017. Testing performed by: [address] [address] Eosinophil pct 7.6 % [facility] Comment: Interpretive Data Percent cell count reference ranges are not reported, since discordance with absolute values may lead to misinterpretation of CBC data. Current Interpretive Data was last revised on 2017. Testing performed by: [address] [address] Basophil pct 0.8 % [facility] Comment: Interpretive Data Percent cell count reference ranges are not reported, since discordance with absolute values may lead to misinterpretation of CBC data. Current Interpretive Data was last revised on 2017. Testing performed by: [address] [address] Blood 10/06/2024 2:40 AM CDT 10/06/2024 2:43 AM CDT us Michael Escudero Jr., MD LAB BLOOD ORDERABLES Fi nal Result ROSELYNBCV [address] [facility] [place] [address] * (ABNORMAL) Pro B-type natriuretic [...] Last Revised Date: 2017. Testing performed by: [facility], [address] [place] [address]., [address] Blood 10/06/2024 2:40 AM CDT 10/06/2024 2:43 AM CDT us Michael Escudero Jr., MD LAB BLOOD ORDERABLES Fi nal Result [facility] [address] [facility] Department [place] [address] * (ABNORMAL) CBC with auto differential (10/06/2024 2:40 AM CDT) [facility] Signature WBC 7.09 3.80 - 9.90 K/cumm Comment:Testing performed by : [address] [address] Hgb 12.8(L) 13.0 - 17.5 g/dL MARINO Comment:Testing performed by : [address] [address] Hct 40.4 38.9 - 50.3 % MARINO Comment:Testing performed by : [address] [address] Plt 175 150 - 400 K/cumm MARINO Comment:Testing performed by : [address] [address] MPV 9.4 9.1 - 12.3 fL MARINO Comment:Testing performed by : [address] [address] RBC 4.13(L) 4.30 - 5.80 M/cumm MARINO Comment:Testing performed by : [address] [address] MCV 97.8(H) 81.3 - 96.4 fL MARINO Comment:Testing performed by : [address] [address] MCH 31.0 27.1 - 33.3 pg MARINO Comment:Testing performed by : [address] [address] MCHC 31.7(L) 32.3 - 35.7 g/dL MARINO Comment:Testing performed by : [address] [address] RDW CV 15.4(H) 11.1 - 14.9 % MARINO Comment:Testing performed by : [address], [address] RDW SD 55.1(H) 35.7 - 48.1 fL MARINO Comment:Testing performed by : [address] [address] NRBC abs 0.00 0.00 - 0.01 K/cumm MARINO OLEARY Comment:Testing performed by : [address] [address] Blood 10/06/2024 2:40 AM CDT 10/06/2024 2:43 AM CDT us Michael Escudero Jr., MD LAB BLOOD ORDERABLES Fi nal Result MARINO [facility] Department [place] [address] * (ABNORMAL) Comprehensive metabolic panel (10/06/2024 2:40 AM CDT) Sodium 142 135 - 145 mmol/L Comment:Testing performed by : [address] [address] Potassium, pl 3.9 3.3 - 4.9 mmol/L MARINO Comment:Testing performed by : [address] [address] Chloride 104 97 - 110 mmol/L MARINO Comment:Testing performed by : [address] [address] CO2 30 22 - 32 mmol/L MARINO Comment:Testing performed by : [address] [address] Anion gap 8 2 - 15 mmol/L MARINO Comment:Testing performed by : [address] [address] BUN 19 6 - 25 mg/dL MARINO Comment:Testing performed by : [address] [address] Creatinine 1.43(H) 0.80 - 1.30 mg/dL MARINO OLEARY Comment:Testing performed by : [address] [address] Glucose 90 70 - 199 mg/dL MARINO [...] was last revised 2022. Testing performed by: [address] [address] Calcium 9.4 8.5 - 10.3 mg/dL MARINO Comment:Testing performed by : [address] [address] Bilirubin, total 0.8 0.1 - 1.2 mg/dL MARINO Comment:Testing performed by : [address] [address] Protein, pl 7.2 6.5 - 8.5 g/dL MARINO Comment:Testing performed by : [address] [address] Albumin 3.8 3.5 - 5.0 g/dL MARINO Comment:Testing performed by : [address] [address] Alk phos 93 40 - 130 Units/L MARINO Comment:Testing performed by : [address] [address] ALT 30 7 - 55 Units/L MARINO Comment:Testing performed by : [address] [address] AST 40 10 - 50 Units/L MARINO Comment:Testing performed by : [address] [address] Blood 10/06/2024 2:40 AM CDT 10/06/2024 2:43 AM CDT Michael Escudero Jr., MD LAB BLOOD ORDERABLES Fi nal Result MARINO MH [address] [facility] [place] [address] * Cardiology Document Scan (08/31/2024 10:54 AM [...] MD LAB BLOOD ORDERABLES Final R esult [facility] [place] [address] * (ABNORMAL) Basic metabolic panel (08/13/2024 4:30 AM CDT) [facility] Sodium 140 135 - 145 mmol/L Potassium, pl 3.7 3.3 - 4.9 mmol/L [facility] Chloride 101 97 - 110 mmol/L [facility] CO2 33(H) 22 - 32 mmol/L [facility] Anion gap 6 2 - 15 mmol/L [facility] BUN 35(H) 6 - 25 mg/dL [facility] Creatinine 1.35(H) 0.80 - 1.30 mg/dL [facility] Glucose 125 70 - 199 mg/dL [facility] Comment: Interpretive Data Fasting glucose >/= [...] 2022. Calcium 9.2 8.5 - 10.3 mg/dL [facility] Blood 08/13/2024 4:30 AM CDT 08/13/2024 5:41 AM CDT us Debbi Joe MD LAB BLOOD ORDERABLES Final R esult Performing Organization Address City/[facility]/ZIP Co de Phone Number [facility] [place] [address] * TRANSTHORACIC ECHO (TTE) COMPLETE W DOPPLER/CF W CONTRAST (08/12/2024 11:33 AM CDT) EF Mod BP 27 % CONS SCIMAGE Anatomical Region Laterality Modality Ultrasound 08/12/2024 10:2 4 AM CDT Narrative 08/12/2024 5:51 PM CDT [facility] [place] [place] [address] Transthoracic Echocardiographic Report Patient Name: CELINA PAK W : 1955 (69y 2m) Gender: M Study Date: 08/12/2024 10:24:42 AM Ht(Inch): 72 Wt(Lb): 212.96 BSA: 2.22 Software Test Analyst: Silva Angela Location: [id number] Order Provider: ALIYA VELEZ Heart Rate: 90 [...] Note Celina Rinaldi MD PhD - 08/12/2024 [facility] [place] [address] Transthoracic Echocardiographic Report Patient Name: CELINA PAK W : 1955 (69y 2m) Gender: M Study Date: 08/12/2024 10:24:42 AM Ht(Inch): 72 Wt(Lb): 212.96 BSA: 2.22 Software Test Analyst: Silva Angela Location: [id number] Order Provider:ALIYA VELEZ Heart Rate: 90 BMI: [...] LA Length 4C 6.60 cm MV Decel Cyfs360.12 msec [ 104.00 - 258.00 ] LA [...] mmHg RA Volume Index 50.89 ml/m2 MR MID313.1 cm RVOT Diam 4.90 cm TR Peak [...] * Lactate (08/12/2024 2:57 AM CDT) Pathologist [facility] Lactate 0.8 0.7 - 2.0 mmol/L Blood 08/12/2024 2:57 AM CDT 08/12/2024 3:18 AM CDT Aliya Velez MD LAB BLOOD ORDERABLES Fi nal Result [facility] Department [place] [address] * (ABNORMAL) eGFR (08/11/2024 9:17 PM CDT) Pathologist [facility] eGFR 47(L) >=60 mL/min/1. 73 m2 Comment: [...] ORDERABLES Fi nal Result Performing Organization Address City/[facility] Co de Phone Number [facility] [place] [address] * Magnesium (08/11/2024 9:17 PM CDT) [facility] Magnesium 1.9 1.4 - 2.5 mg/dL Blood 08/11/2024 9:17 PM CDT 08/11/2024 9:51 PM CDT Aliya Velez MD LAB BLOOD ORDERABLES Fi nal Result Performing Organization Address [facility] Co de Phone Number [facility] [place] [address] * (ABNORMAL) Basic metabolic panel (08/11/2024 9:17 PM CDT) Sodium 141 135 - 145 mmol/L Potassium, pl 4.1 3.3 - 4.9 mmol/L [facility] Comment:Hemolyzed; Potassium value may be falsely elevated by as much as 0.3-0.5 mmol/L. Suggest redraw and reanalysis. Chloride 97 97 - 110 mmol/L [facility] CO2 33(H) 22 - 32 mmol/L [facility] Anion gap 11 2 - 15 mmol/L [facility] BUN 34(H) 6 - 25 mg/dL [facility] Creatinine 1.60(H) 0.80 - 1.30 mg/dL [facility] Glucose 81 70 - 199 mg/dL [facility] Comment: Interpretive Data Fasting glucose >/= [...] Calcium 9.3 8.5 - 10.3 mg/dL [facility] Blood 08/11/2024 9:17 PM CDT 08/11/2024 9:51 PM CDT [facility] Jaime Velez MD LAB BLOOD ORDERABLES nal Result [facility] [address] [facility] [place] [address] * (ABNORMAL) Drugs of Abuse Screen, Urine [...] 2022. Barbiturates, ur Not Detected CutOff 200ng/mL [facility] Comment: Interpretive Data - Barbiturates: Samples [...] Cocaine, ur Not Detected CutOff 150ng/mL [facility] Comment: Interpretive Data - Cocaine: Samples containing greater than 150 ng/mL benzoylecgonine or other cross- reacting compounds are reported as positive. False positive and false negative results are possible. Confirmatory testing required for definitive results. Current Interpretive Data was last reviewed 2022. Fentanyl, Ur Not Detected CutOff 5 ng/mL [facility] Comment: Interpretive Data - Fentanyl: Samples [...] Opiates, ur Not Detected CutOff 300ng/mL [facility] Comment: Interpretive Data - Opiates: Samples containing greater than 300 ng/mL morphine or other cross-reacting compounds are reported as positive. False positive and false negative results are possible. Confirmatory testing required for definitive results. Current Interpretive Data was last reviewed 2022. Oxycodone, ur Not Detected CutOff 100ng/mL [facility] Comment: Interpretive Data - Oxycodone: Samples containing greater than 100 ng/mL oxycodone or other cross-reacting compounds are reported as positive. False positive and false negative results are possible. Confirmatory testing required for definitive results. Current Interpretive Data was last reviewed 2022. Phencyclidine, ur Not Detected CutOff 25 ng/mL [facility] Comment: Interpretive Data - Phencyclidine: Samples containing greater than 25 ng/mL phencyclidine or other cross-reacting compounds are reported as positive. False positive and false negative results are possible. Confirmatory testing required for definitive results. Current Interpretive Data was last reviewed 2022. Urine Creatinine 9 mg/dL [facility] Comment: Interpretive Data Urine Creatinine: < 10 mg/dL is extremely dilute = or > 10 but < 20 mg/dL is dilute = or > 20 mg/dL is normal Current Interpretive Data was last revised on 2017. Urine 08/11/2024 9:43 AM CDT 08/11/2024 10:49 AM CDT Narrative [facility] - 08/11/2024 11:54 AM CDT Drug of Abuse screening is performed by immunoassay for medical purposes only. This is not to be used for Pain Management purposes. If Detected, confirmation testing will be performed for Amphetamines, Cocaine, Fentanyl, Methadone, Opiates, Oxycodone or Phencyclidine. Lucie Tai NP LAB URINE ORDERABLES Final Result [facility] [place] [address] * (ABNORMAL) Amphetamine Confirmation, Urine (08/11/2024 9:43 AM CDT) [facility] Amphetamine Conf, Ur Does Not Confirm CutOff 150ng/mL Methamphetamine Conf, Ur Confirmed Positive(A) CutOff 150ng/mL [facility] MDA Conf, Ur Does Not Confirm [...] needed. Performance characteristics were determined by the [facility] in a manner consistent with CLIA requirement and has not been cleared or approved by the U.S. Food and Drug Administration. Current interpretive data was last revised on 2020. Urine 08/11/2024 9:43 AM CDT 08/11/2024 11:01 AM CDT us Lucie Tai NP LAB URINE ORDERABLES Final Result [facility] [place] [address] * Troponin I high-sensitivity 2-hour (08/11/2024 3:24 AM CDT) Trop I hs 25 <=35 ng/L Comment: Interpretive Data For further hscTnI resources including the diagnostic algorithm and an aid in interpretation, copy and paste this link: https://bjhlab.testcatalog.org/show/hsTrop-1 Current Interpretive Data last revised 2019. Trop I hs delta See Comment ng/L [facility] Comment:Inappropriate collec tion time to report a delta. Trop I hs pct delta See Comment % [facility] Comment:Inappropriate collec tion time to report a delta. Trop I hs interp See Comment [facility] Comment:Inappropriate collec tion time to report a delta. Blood 08/11/2024 3:24 AM CDT 08/11/2024 3:36 AM CDT us Melly Moctezuma MD LAB BLOOD ORDERABLES Final Result Performing Organization Address [facility] Co de Phone Number [facility] [place] [address] * (ABNORMAL) Pro B-type natriuretic peptide (08/11/2024 [...] ORDERABLES Final Re sult Performing Organization Address [facility] Co de Phone Number [facility] [place] [address] * XR Chest PA Lateral 2 Views [...] ORDERABLES Final Re sult Performing Organization Address [facility] Co de Phone Number [facility] [place] [address] * (ABNORMAL) eGFR (08/11/2024 12:11 AM CDT) [...] ORDERABLES Final Re sult Performing Organization Address [facility]/ZIP Co de Phone Number [facility] [place] [address] * Differential, auto (08/11/2024 12:11 AM CDT) Neutrophil abs 4.47 1.50 - 6.50 K/cumm Imm gran abs 0.02 0.00 - 0.10 K/cumm [facility] Lymphocyte abs 1.79 0.80 - 3.30 K/cumm [facility] Monocyte abs 0.50 0.20 - 0.80 K/cumm [facility] Eosinophil abs 0.24 0.00 - 0.50 K/cumm [facility] Basophil abs 0.07 0.00 - 0.10 K/cumm [facility] Neutrophil pct 63.0 % [facility] Comment: Interpretive Data Percent cell count reference ranges are not reported, since discordance with absolute values may lead to misinterpretation of CBC data. Current Interpretive Data was last revised on 2017. Imm gran pct 0.3 % [facility] Comment: Interpretive Data Percent cell count reference ranges are not reported, since discordance with absolute values may lead to misinterpretation of CBC data. Current Interpretive Data was last revised on 2017. Lymphocyte pct 25.2 % [facility] Comment: Interpretive Data Percent cell count reference ranges are not reported, since discordance with absolute values may lead to misinterpretation of CBC data. Current Interpretive Data was last revised on 2017. Monocyte pct 7.1 % [facility] Comment: Interpretive Data Percent cell count reference ranges are not reported, since discordance with absolute values may lead to misinterpretation of CBC data. Current Interpretive Data was last revised on 2017. Eosinophil pct 3.4 % [facility] Comment: Interpretive Data Percent cell count reference ranges are not reported, since discordance with absolute values may lead to misinterpretation of CBC data. Current Interpretive Data was last revised on 2017. Basophil pct 1.0 % [facility] Comment: Interpretive Data Percent cell count reference ranges are not reported, since discordance with absolute values may lead to misinterpretation of CBC data. Current Interpretive Data was last revised on 2017. Blood 08/11/2024 12:1 1 AM CDT 08/11/2024 12:27 AM CDT us Kiel Oliveira MD LAB BLOOD ORDERABLES Final Re sult [facility] [place] [address] * (ABNORMAL) CBC with auto differential (08/11/2024 12:11 AM CDT) [facility] WBC 7.09 3.80 - 9.90 K/cumm Hgb 13.2 13.0 - 17.5 g/dL [facility] Hct 41.2 38.9 - 50.3 % [facility] Plt 192 150 - 400 K/cumm [facility] MPV 10.0 9.1 - 12.3 fL [facility] RBC 4.20(L) 4.30 - 5.80 M/cumm [facility] MCV 98.1(H) 81.3 - 96.4 fL [facility] MCH 31.4 27.1 - 33.3 pg [facility] MCHC 32.0(L) 32.3 - 35.7 g/dL [facility] RDW CV 14.7 11.1 - 14.9 % [facility] RDW SD 53.1(H) 35.7 - 48.1 fL [facility] NRBC abs 0.00 0.00 - 0.01 K/cumm [facility] Blood 08/11/2024 12:1 1 AM CDT 08/11/2024 12:27 AM CDT us Kiel Oliveira MD LAB BLOOD ORDERABLES Final Re sult [facility] [place] [address] * (ABNORMAL) Comprehensive metabolic panel (08/11/2024 12:11 AM CDT) [facility] Sodium 141 135 - 145 mmol/L Potassium, pl 4.8 3.3 - 4.9 mmol/L [facility] Chloride 103 97 - 110 mmol/L [facility] CO2 32 22 - 32 mmol/L [facility] Anion gap 6 2 - 15 mmol/L [facility] BUN 32(H) 6 - 25 mg/dL [facility] Creatinine 1.44(H) 0.80 - 1.30 mg/dL [facility] Glucose 103 70 - 199 mg/dL [facility] Comment: Interpretive Data Fasting glucose >/= [...] Calcium 9.5 8.5 - 10.3 mg/dL [facility] Bilirubin, total 0.8 0.1 - 1.2 mg/dL [facility] Protein, pl 7.3 6.5 - 8.5 g/dL [facility] Albumin 3.8 3.5 - 5.0 g/dL [facility] Alk phos 95 40 - 130 Units/L [facility] ALT 56(H) 7 - 55 Units/L [facility] AST 49 10 - 50 Units/L [facility] Blood 08/11/2024 12:1 1 AM CDT 08/11/2024 12:26 AM CDT us Kiel Oliveira MD LAB BLOOD ORDERABLES Final Re sult [facility] [place] [address] * ECG 12-LEAD (08/10/2024 11:56 PM CDT) [...] Kiel Oliveira MD ECG ORDERABLES Final Result [facility] * PSA screen (12/12/2023 10:00 AM CDT) [...] revised 21. Testing performed by: [facility], [address] [place] [address], [place]., [address] Blood 12/12/2023 10:0 0 AM CDT 12/12/2023 12:16 PM CDT us Lisa JACINTO LAB BLOOD ORDERABLES Fin al Result [facility] [address] [facility] [place] [address] from Last 3 Months or Most Recently Relevant to Health Maintenance Insurance [employer] [facility] MEDICARE IDPA MEDICARE IDPA Advance Directives For more information, please contact: [phone] * Full Code (Latest Code Status on File) Date Activated Date Inactivated Comments 10/06/2024 5:48 AM 10/11/2024 4:56 PM * Full Code Date Activated Date Inactivated Comments 08/11/2024 5:02 PM 08/14/2024 12:27 AM * Full Code Date Activated Date Inactivated Comments 11/03/2023 4:46 PM 11/06/2023 6:41 PM * Full Code Date Activated Date Inactivated Comments 07/18/2023 11:06 AM 07/19/2023 7:36 PM Care Teams [employer] Relationship Specialty Start Date End Date Lashae Marcano NP [address] [place] [address] PCP - General Family Practice 08/28/24 [place] [id number] [address] Consulting Physician Cardiovascular Disease 07/19/23
--- OUTSIDE RECORDS SUMMARY | 2024-11-06 05:34 | XMS_ITS | Clinical Summary ---
Author Organization [facility] Address [address] [place] [address] Care Team Providers Care Patient Assistant Name Role Phone None, Provider MD Primary [...] exacerbation of CHF (c ongestive heart failure) ([facility]/HCC [facility]) 09/04/2024 Fall 09/03/2024 Encounters Date Type Department Care Team Description 10/01/2024 9:54 PM CDT - 10/02/2024 1:42 AM CDT Emergency [facility] [address] Raji Jamison MD Penis/Scrotum Problem Discharge Disposition: Home or Self Care (Routine Discharge) 10/01/2024 Travel 09/26/2024 8:52 PM CDT - 09/26/2024 10:41 PM CDT Emergency [facility] [place] [address] Junior Kruger MD Chest Pain Discharge Disposition: Home or Self Care (Routine Discharge) 09/26/2024 Travel 09/14/2024 6:24 PM CDT - 09/15/2024 3:08 AM CDT Emergency [facility] [place] [address] Suresh Weston MD,PHD Fall Discharge Disposition: Home or Self Care (Routine Discharge) 09/14/2024 Travel 09/07/2024 Hospital Follow-up Call [facility] [place] [address] Salome Holland LPN Follow Up Call (CAL 09/02-09/04/24, ER 09/06/24) 09/06/2024 9:44 PM CDT - 09/06/2024 11:45 PM CDT Emergency [facility] [place] [address] Suresh Weston MD,PHD Eye Swelling; Shortness Of Breath Discharge Disposition: Home or Self Care (Routine Discharge) 09/06/2024 Travel 09/02/2024 10:52 PM CDT - 09/04/2024 9:30 AM CDT Hospital Encounter [facility] [place] [address] Bennie Hernandez, Stephanie Perea, Jeanette Wang MD Fall Discharge Disposition: Home or Self Care (Routine Discharge) 09/02/2024 12:34 PM CDT - 09/02/2024 4:48 PM CDT Emergency [facility] [place] [address] Ancelmo Levy MD Smith, MD Mena Yarbrough [...] from your doctor or pharmacy? Never 09/03/2024 [facility] Utilities Answer Date Recorded In the past 12 months has [facility] LOAG, oil, or water [employer] threatened to shut off services in your [...] re latives? Twice a week 09/03/2024 Attends [employer] Not on file 09/03 Active Member [...] medical care, and heating? Somewhat hard 09/03/2024 [facility] of Occupat ional Health - Occupational Stress [...] any time in the past 12 m [facility], were you homeless or living in a long term (including now)? Yes 09/03/2024 Sex and Gender [...] Recommended Domains Addressed Status Status Reason/Outcome Date/Time [facility] Financial Assistance, Help Find Housing, Housing Insecurity Services, Transportation Financial Resource Strain, Transportation Needs, Housing Stability Recommended 10/31/2024 10:58 PM CDT [facility] Housing Insecurity Services Housing Stability Recommended 10/31/2024 [...] URINE CLEAN CATCH 10/01/2024 11:15 PM CDT [facility] COLOR (U) YELLOW 10/01/2024 11:38 PM CDT [facility] TRANSPARENCY CLEAR 10/01/2024 11:38 PM CDT [facility] SPECIFIC GRAVITY (U) 1.019 1.001 - 1.030 10/01/2024 11:38 PM CDT [facility] U PH 5.5 5.0 - 9.0 10/01/2024 11:38 PM CDT [facility] LEUKOCYTES (U) NEGATIVE NEGATIVE 10/01/2024 11:38 PM CDT [facility] NITRITES NEGATIVE NEGATIVE 10/01/2024 11:38 PM CDT [facility] PROTEIN RANDOM (U) 30(H) <30 MG/DL 10/01/2024 11:38 PM CDT [facility] GLUCOSE (U) NORMAL NORMAL MG/DL 10/01/2024 11:38 PM CDT [facility] KETONES MG/DL (U) NEGATIVE NEGATIVE MG/DL 10/01/2024 11:38 PM CDT [facility] UROBILINOGEN NORMAL NORMAL MG/DL 10/01/2024 11:38 PM CDT [facility] BILIRUBIN (U) NEGATIVE NEGATIVE MG/DL 10/01/2024 11:38 PM CDT [facility] BLOOD (U) NEGATIVE NEGATIVE 10/01/2024 11:38 PM CDT [facility] MUCUS RARE /LPF 10/01/2024 11:38 PM CDT [facility] RBC/HPF <1 <6 /HPF 10/01/2024 11:38 PM CDT [facility] SQUAMOUS EPITHELIALS RARE /HPF 10/01/2024 11:38 PM CDT [facility] URINE SPECIMEN OBTAINED BY CLEAN CATCH PROCEDURE / Unknown 10/01/2024 11:15 PM CDT Raji Jamison MD URINE ORDERABLES Final Resu lt [facility] [address] [place] [address], [place] [phone] * XR CHEST PORTABLE (10/01/2024 10:33 PM CDT) Only the most recent of4 resultswithin the time period is included. Anatomical Region Laterality Modality Chest Radiographic Sharonda ging 10/01/2024 10:3 8 PM CDT Impressions 10/01/2024 10:39 PM CDT IMPRESSION: Cardiomegaly and mild central vascular congestion. No sizable pleural effusion. Referred By: Interpreted By: Adria Pritchard MD, 10/01/2024 10:38 PM Narrative 10/01/2024 10:39 PM CDT [address] [address] Examination: XR CHEST PORTABLE Exam time: 10/01/2024 10:24 PM Clinical history: EDEMA Comparison: Radiographs 09/26/2024 and 09/14/2024. Technique: AP view of the chest. Findings: Redemonstrated moderate to marked cardiomegaly. Mild central vascular congestion is noted. No sizable pleural effusion is seen. No consolidative airspace opacities or pneumothorax identified. Procedure Note Adria Pritchard MD - 10/01/[address] [address] Examination: XR CHEST PORTABLE Exam time: 10/01/2024 [...] 9,394(H) <125 PG/ML 10/01/2024 10:37 PM CDT [facility] Comment: CUT POINTS ESTABLISHED BY [...] Raji Jamison MD LABORATORY Final Resul t [facility] [address] [place] [address], [place] [phone] * (ABNORMAL) COMPREHENSIVE METABOLIC PANEL (10/01/2024 10:08 PM CDT) Only the most recent of7 resultswithin the time period is included. GLUCOSE 96 70 - 99 MG/DL 10/01/2024 10:37 PM CDT [facility] BUN 21(H) 7 - 18 MG/DL 10/01/2024 10:37 PM CDT [facility] CREATININE S/P/B 1.65(H) 0.7 - 1.3 MG/DL 10/01/2024 10:37 PM CDT [facility] SODIUM S/P/B 139 136 - 145 MMOL/L 10/01/2024 10:37 PM CDT [facility] POTASSIUM S/P/B 3.6 3.5 - 5.1 MMOL/L 10/01/2024 10:37 PM CDT [facility] CHLORIDE S/P/B 106 97 - 115 MMOL/L 10/01/2024 10:37 PM CDT [facility] CO2 27.2 21 - 32 MMOL/L 10/01/2024 10:37 PM T [facility] CALCIUM S/P/B 9.0 8.5 - 10.1 MG/DL 10/01/2024 10:37 PM T [facility] BILIRUBIN TOTAL S/P/B 1.6(H) 0.2 - 1.2 MG/DL 10/01/2024 10:37 PM T [facility] Comment: THIS ASSAY IS NOT RECOMMENDED FOR PATIENTS UNDERGOING TREATMENT WITH ELTROMBOPAG DUE TO THE POTENTIAL FOR FALSELY ELEVATED RESULTS. TOTAL PROTEIN S/P/B 7.3 6.4 - 8.2 G/DL 10/01/2024 10:37 PM T [facility] ALBUMIN S/P/B 3.4 3.4 - 5.0 G/DL 10/01/2024 10:37 PM T [facility] AST 43(H) 15 - 37 U/L 10/01/2024 10:37 PM T [facility] ALT 37 16 - 60 U/L 10/01/2024 10:37 PM T [facility] ALKALINE PHOSPHATASE S/P/B 98 50 - 136 U/L 10/01/2024 10:37 PM T [facility] ANION GAP 5.8 2 - 10 MMOL/L 10/01/2024 10:37 PM T [facility] BUN CREATININE RATIO 12.7 6 - 26 10/01/2024 10:37 PM T [facility] A/G RATIO 0.9(L) 1.0 - 2.0 RATIO 10/01/2024 10:37 PM [facility] GFR ESTIMATE 45(L) >90 ML/MIN/1.7 3 M2 10/01/2024 10:37 PM T [facility] Comment: NOTE: eGFR is not [...] Raji Jamison MD LABORATORY Final Resul t [facility] [address] [place] [address], [place] [phone] * (ABNORMAL) CBC W/DIFF AUTOMATED (10/01/2024 10:08 PM CDT) Only the most recent of7 resultswithin the time period is included. WBC 8.04 4.5 - 11.0 x10'3/uL 10/01/2024 10:22 PM CDT [facility] RBC 4.26(L) 4.70 - 6.10 x10'6/uL 10/01/2024 10:22 PM CDT [facility] HGB 13.4(L) 14.0 - 18.0 G/DL 10/01/2024 10:22 PM CDT [facility] HCT 41.2(L) 43.0 - 54.0 % 10/01/2024 10:22 PM CDT [facility] MCV 96.7(H) 80.0 - 94.0 FL 10/01/2024 10:22 PM CDT [facility] MCH 31.5(H) 27.0 - 31.0 PG 10/01/2024 10:22 PM CDT [facility] MCHC 32.5 32.0 - 36.0 G/DL 10/01/2024 10:22 PM CDT [facility] RDW 15.0(H) 11.5 - 14.5 % 10/01/2024 10:22 PM CDT [facility] PLT 150 130 - 400 x10'3/uL 10/01/2024 10:22 PM CDT [facility] MPV 10.4 9.3 - 12.2 FL 10/01/2024 10:22 PM CDT [facility] DIFFERENTIAL TYPE AUTOMATED DIFFERENTIAL 10/01/2024 10:22 PM CDT [facility] NEUTROPHILS % 63.4 % 10/01/2024 10:22 PM CDT [facility] LYMPHOCYTES % 27.7 % 10/01/2024 10:22 PM CDT [facility] MONOCYTES % 6.2 % 10/01/2024 10:22 PM CDT [facility] EOSINOPHILS 2.0 % 10/01/2024 10:22 PM CDT [facility] BASOPHILS 0.5 % 10/01/2024 10:22 PM CDT [facility] IMMATURE GRANS % 0.2 % 10/02/19 10:22 PM CDT [facility] ABS. NEUTROPHILS 5.09 1.80 - 7.70 x10'3/uL 10/01/2024 10:22 PM CDT [facility] ABS. LYMPHOCYTES 2.23 1.00 - 4.80 x10'3/uL 10/01/2024 10:22 PM CDT [facility] ABS. MONOCYTES 0.50 0.30 - 0.82 x10'3/uL 10/01/2024 10:22 PM CDT [facility] ABS. EOSINOPHILS 0.16 0.04 - 0.54 x10'3/uL 10/01/2024 10:22 PM CDT [facility] ABS. BASOPHILS 0.04 0.01 - 0.08 x10'3/uL 10/01/2024 10:22 PM CDT [facility] ABS. IMMATURE GRANULOCYTES 0.02 0.00 - 0.49 x10'3/uL 10/01/2024 10:22 PM CDT [facility] 10/01/2024 10:0 8 PM CDT us Raji Jamison MD LABORATORY Final Resul t Performing Organization Address City/[facility] [email or web address]] Co de Phone Number [facility] [address] [place] [address], [place] [phone] * TROPONIN, QUANT (10/01/2024 10:08 PM CDT) Only the most recent of6 resultswithin the time period is included. TROPONIN I HIGH SENSITIVITY 42 <79 ng/L 10/01/2024 10:37 PM CDT [facility] Comment: HIGH DOSES OF BIOTIN, TROPONIN-SPECIFIC AUTOANTIBODIES, AND ANTIBODY THERAPY CONTAINING HAMA MAY INTERFERE WITH THIS TEST RESULT. CORRELATION TO CLINICAL HISTORY AND PRESENTATION RECOMMENDED. 10/01/2024 10:0 8 PM CDT us Raji Jamison MD LABORATORY Final Resul t Performing Organization Address City/[facility] [email or web address]] Co de Phone Number [facility] [address] [place] [address], [place] [phone] * ECG 12 lead (09/26/2024 10:20 PM CDT) Only the most recent of5 resultswithin the time period is included. 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1955 Requested By: STEFANY SUAREZ Order Number: [id number] Reading MD: Raymundo Wong Measurements Intervals [place] Rate: 87 P: 36 IN: 179 QRS: 19 QRSD: 98 T: 32 [...] MD ECG ORDERABLES Final Result [facility] ([facility]) RAD * CT HEAD WO [...] 1:28 AM Narrative 09/15/2024 1:30 AM CDT [address] [address] EXAMINATION: CT of the head EXAM DATE/TIME: [...] Procedure Note Hayder Chance MD - [facility] [address] [place], [place] [address] EXAMINATION: CT of the head EXAM DATE/TIME: [...] 1:30 AM Narrative 09/15/2024 1:32 AM CDT [address] [address] EXAMINATION: CT Cervical Spine without contrast. EXAM [...] Procedure Note Hayder Chance MD - 09/15/[address] [address] EXAMINATION: CT Cervical Spine without contrast. EXAM [...] resultswithin the time period is included. Pathologist [facility] ALCOHOL S/P/B <0.003 <0.003 G/DL 09/14/2024 7:23 PM CDT [facility] 09/14/2024 6:39 PM CDT Radha JACINTO LABORATORY Final Result [facility] [address] [place] [address], [place] [phone] * CK (CPK) (09/14/2024 6:39 PM CDT) Only the most recent of2 resultswithin the time period is included. CPK 137 35 - 232 U/L 09/14/2024 7:23 PM CDT [facility] 09/14/2024 6:39 PM CDT Radha JACINTO LABORATORY Final Result Performing Organization Address City/[facility]/ZIP Co de Phone Number [facility] [address] [place] [address], [place] [phone] * PARTIAL THROMBOPLASTIN TIME,PTT (09/06/2024 10:10 PM CDT) PTT 36.5 25.1 - 36.5 SEC 09/06/2024 10:37 PM CDT [facility] 09/06/2024 10:1 0 PM CDT Roberto JACINTO LABORATORY Final Resul t Performing Organization Address [facility] [[email or web address]] Co de Phone Number [facility] [address] [place] [address], [place] [phone] * PROTIME/INR, VENOUS (09/06/2024 10:10 PM CDT) PROTIME 12.2 10.2 - 12.9 SEC 09/06/2024 10:37 PM CDT [facility] INR 1.1 09/06/2024 10:37 PM CDT [facility] Comment: Recommended INR Therapeutic Goals: 2.0-3.0 Routine Therapy 2.5-3.5 Mechanical Prosthetic Valves (High Risk) 09/06/2024 10:1 0 PM CDT Roberto JACINTO LABORATORY Final Resul t Performing Organization Address City/[facility]/ZIP Co de Phone Number [facility] [address] [place] [address], * XR CHEST PA+LAT (09/06/2024 10:04 PM CDT) Anatomical Region Laterality Modality Chest Radiographic Shaornda ging 09/06/2024 10:2 9 PM CDT Impressions [...] 10:29 PM Narrative 09/06/2024 10:36 PM CDT [address] [address] CLINICAL INDICATION: 69-year-old male. Reason for examination: [...] Procedure Note Joya Francisco MD - 09/06/2024 [facility] [address] [place], [place] [address] CLINICAL INDICATION: 69-year-old male. Reason for examination: [...] 10:30 PM Narrative 09/06/2024 10:31 PM CDT [address] [address] EXAMINATION: CT of the orbits EXAM DATE/TIME: [...] Procedure Note Hayder Chance MD - 09/06/2024 [address] [place], [place] [address] EXAMINATION: CT of the orbits EXAM DATE/TIME: [...] - 99 MG/DL 09/04/2024 7:44 AM CDT [facility] BUN 23(H) 7 - 18 MG/DL 09/04/2024 7:44 AM T [facility] CREATININE S/P/B 1.24 0.7 - 1.3 MG/DL 09/04/2024 7:44 AM CDT [facility] SODIUM S/P/B 139 136 - 145 MMOL/L 09/04/2024 7:44 AM CDT [facility] POTASSIUM S/P/B 4.0 3.5 - 5.1 MMOL/L 09/04/2024 7:44 AM CDT [facility] CHLORIDE S/P/B 106 97 - 115 MMOL/L 09/04/2024 7:44 AM CDT [facility] CO2 28.1 21 - 32 MMOL/L 09/04/2024 7:44 AM CDT [facility] CALCIUM S/P/B 8.9 8.5 - 10.1 MG/DL 09/04/2024 7:44 AM CDT [facility] ANION GAP 4.9 2 - 10 MMOL/L 09/04/2024 7:44 AM T [facility] BUN CREATININE RATIO 18.5 6 - 26 09/04/2024 7:44 AM T [facility] GFR ESTIMATE 64(L) >90 ML/MIN/1.7 3 M2 09/04/2024 7:44 AM T [facility] Comment: NOTE: eGFR is not [...] us Jeanette Tracey MD LABORATORY Final Result [facility] [address] [place] [address], [place] [phone] * (ABNORMAL) LIPID PANEL (09/03/2024 8:41 AM CDT) CHOLESTEROL 95 <200 MG/DL 09/03/2024 10:23 AM CDT [facility] TRIGLYCERIDES 67 <150 MG/DL 09/03/2024 10:23 AM CDT [facility] HDL 25(L) >40.0 MG/DL 09/03/2024 10:23 AM CDT [facility] LDL (CALCULATED) 57 <100 MG/DL 09/04/19 10:23 AM CDT [facility] NON HDL CHOLESTEROL 70 <130 MG/DL 09/03 10:23 AM CDT [facility] CHOL/HDL RATIO 3.8 0.0 - 4.5 09/03/2024 10:23 AM CDT [facility] VLDL CALCULATION 13 5 - 55 MG/DL 09/03/2024 10:23 AM CDT [facility] LIPID INTERPRETATION 09/03/2024 10:23 AM CDT [facility] Comment: [facility] CON[facility]ENS[facility] REPORT RECOMMENDATIONS: ADULT CHILD LOW RISK: CHOLESTEROL <200 <170 TRIGLYCERIDE <150 --- HDL >=60 --- LDL <100 <110 BORDERLINE: CHOLESTEROL 200-239 170-199 TRIGLYCERIDE 150-199 --- HDL 40-59 --- LDL 100-159 110-129 HIGH RISK: CHOLESTEROL >=240 >=200 TRIGLYCERIDE >=200 --- HDL <40 --- LDL >=160 >=130 09/03/2024 8:41 AM CDT Charisse Madsen MAIL PROCESSING ASSOCIATE LABORATORY Final Resul t [facility] [address] [place] [address], [place] [phone] * PHOSPHORUS, INORGANIC PHOSPHATE (09/03/2024 8:41 AM CDT) Only the most recent of2 resultswithin the time period is included. PHOSPHORUS 3.2 2.5 - 4.9 MG/DL 09/03/2024 10:23 AM CDT [facility] 09/03/2024 8:41 AM CDT Charisse Madsen MAIL PROCESSING ASSOCIATE LABORATORY Final Resul t [facility] [address] [place] [address], [place] [phone] * (ABNORMAL) DRUG SCREEN RAPID (09/03/2024 12:29 AM CDT) AMPHETAMINE (U) POSITIVE(A) NEGATIVE 09/04/19 25 12:51 AM CDT [facility] BARBITURATES SCREEN (U) NEGATIVE NEGATIVE 09/03/2024 12:51 AM CDT [facility] BENZODIAZEPINES SCREEN (U) POSITIVE(A) NEGATIVE 09/03/2024 12:51 AM CDT [facility] CANNABINOIDS SCREEN (U) NEGATIVE NEGATIVE 09/03/2024 12:51 AM CDT [facility] COCAINE METABOLITES (U) NEGATIVE NEGATIVE 09/03/2024 12:51 AM CDT [facility] METHADONE (U) NEGATIVE NEGATIVE 09/03/2024 12:51 AM CDT [facility] OPIATE SCREEN (U) NEGATIVE NEGATIVE 025 12:51 AM CDT [facility] PHENCYCLIDINE PCP (U) NEGATIVE NEGATIVE 09/03/2024 12:51 AM CDT [facility] Comment: NOTE: RESULTS OF THIS [...] - 259 MG/DL 09/03/2024 12:51 AM CDT [facility] URINE SPECIMEN / Unknown 09/03/2024 12:29 AM CDT Stephanie Dobson DO URINE ORDERABLES Final Resul t Performing Organization Address City/[facility]/ZIP Co de Phone Number [facility] [address] [place] [address], [place] [phone] * MAGNESIUM (09/02/2024 11:26 PM CDT) MAGNESIUM 1.8 1.8 - 2.4 MG/DL 09/03/2024 2:20 AM CDT [facility] 09/02/2024 11:2 6 PM CDT Charisse Madsen MAIL PROCESSING ASSOCIATE LABORATORY Final Resul t [facility] [address] [place] [address], [place] [phone] * Critical Care (09/02/2024 10:56 PM CDT) Narrative Cyndi iGpson MD - 09/02/2024 10:56 PM CDT Cyndi [...] 1:33 PM Narrative 09/02/2024 1:37 PM CDT [address] [address] IMAGING STUDIES: XR KNEE LT 3V DATE: [...] Procedure Note John Diaz MD - 09/02/2024 [facility] [address] [place], [place] [address] IMAGING STUDIES: XR KNEE LT 3VDATE: 09/02/2024 [...] 12:11 AM 09/04/2024 11:35 AM Care Teams Patient Assistant Relationship Specialty Start Date End Date None, Provider, PCP - General UNKNOWN PHYSICIAN SPECIALTY 09/02/24
--- OUTSIDE RECORDS SUMMARY | 2024-11-06 05:34 | XMS_ITS | Referral Summary ---
Author Organization [facility] Address [address] [place] [address] Care Team Providers Care Thrasher Feeder Name Role Phone Zion Gaspar MD Unavailable Lashae Marcano NP Primary Care Provider [phone] Encounters Date Type Department Care Team Description 10/14/2024 TCC Subsequent Outreach [facility] [address] [place] [address] Alissa Lewis 10/06/2024 2:49 AM CDT - 10/11/2024 12:56 PM CDT Hospital Encounter [facility] 4 Med Surg [employer] [place] [address] Michael Escudero Jr., MD Medavaram, Atul, MD Dhillon, Rupinderjit Singh, MD Al Furgani, Mahmud Mustafa, MD Mustafa, Saim, DO Acute on chronic congestive heart failure, unspecified heart failure type (HCC) (Primary Dx); Cellulitis of right lower extremity; Amphetamine abuse (HCC); Elevated troponin; Pedal edema Discharge Disposition: Discharge to an Rehab facility 10/07/2024 TCC Inpatient Enrollment [facility] [address] [place] [address] Alissa Lewis 10/06/2024 TCC Initial Eligibility Review [facility] [place] [address] Guillaume Butler RN 09/07/[address] [facility] Cardiology [address] [place] [id number] Jill Lundberg NP 09/02/[address] 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 Male hypogonadism 01/05/2020 Vitamin D deficiency 06/28/2019 [...] Tobacco: Never Tobacco Cessation:Counseling Given: Not Answered [facility] Utilities Answer Date Recorded In the past 12 months has [employer], gas, oil, or water company threatened to [...] week 10/06/2024 How often do you attend spiritism or caodaism serv ices? Never 10/06/2024 Do you belong to any clubs o r organizations such as spiritism groups, unions, fraternal or athletic groups, or [...] any time in the past 12 m [facility], were you homeless or living in a half-way (including now)? Yes 10/06/2024 Personal Safety Answer Date Recorded Have you ever been in or are you currently in a harmful physical or emotional relationship or is someone making you feel afraid or unsafe? 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 Testing performed by: [address] [address] Blood 10/11/2024 5:26 AM CDT 10/11/2024 5:31 AM CDT us Danny Briseno MD LAB BLOOD ORDERABLES Final Res ult [facility] [address] [facility] [place] [address] * (ABNORMAL) CBC without differential (10/11/2024 5:26 AM CDT) Pathologist [facility] WBC 8.27 3.80 - 9.90 K/cumm Comment:Testing performed by : [address] [address] Hgb 14.9 13.0 - 17.5 g/dL [facility] Comment:Testing performed by : [address] [address] Hct 46.4 38.9 - 50.3 % MARINO Comment:Testing performed by : [address], [address] Plt 210 150 - 400 K/cumm MARINO Comment:Testing performed by : [address], [address] MPV 10.1 9.1 - 12.3 fL MARINO Comment:Testing performed by : [address], [address] RBC 4.82 4.30 - 5.80 M/cumm MARINO Comment:Testing performed by : [address], [address] MCV 96.3 81.3 - 96.4 fL MARINO Comment:Testing performed by : [address], [address] MCH 30.9 27.1 - 33.3 pg MARINO Comment:Testing performed by : [address], [address] MCHC 32.1(L) 32.3 - 35.7 g/dL MARINO Comment:Testing performed by : [address], [address] RDW CV 15.8(H) 11.1 - 14.9 % MARINO Comment:Testing performed by : [address], [address] RDW SD 55.4(H) 35.7 - 48.1 fL MARINO Comment:Testing performed by : [address], [address] NRBC abs 0.00 0.00 - 0.01 K/cumm MARINO Comment:Testing performed by : [address], [address] Blood 10/11/2024 5:26 AM CDT 10/11/2024 5:31 AM CDT us Danny Briseno MD LAB BLOOD ORDERABLES Final Res ult CERNER [address] [facility] [place] [address] * (ABNORMAL) Basic metabolic panel (10/11/2024 5:26 AM CDT) Sodium 137 135 - 145 mmol/L Comment:Testing performed by : [address], [place]., [address] Potassium, pl 4.8 3.3 - 4.9 mmol/L MARINO Comment:Testing performed by : [address], [place]., [address] Chloride 101 97 - 110 mmol/L MARINO Comment:Testing performed by : [address], [place]., [address] CO2 24 22 - 32 mmol/L MARINO Comment:Testing performed by : [address], [place]., [address] Anion gap 12 2 - 15 mmol/L MARINO Comment:Testing performed by : [address], [place]., [address] BUN 43(H) 6 - 25 mg/dL MARINO Comment:Testing performed by : [address] [address] Creatinine 1.53(H) 0.80 - 1.30 mg/dL MARINO Comment:Testing performed by : [address], [place]., [address] Glucose 88 70 - 199 mg/dL MARINO [...] was last revised 2022. Testing performed by: [address], [place]., [address] Calcium 9.7 8.5 - 10.3 mg/dL [facility] Comment:Testing performed by : [facility], [address] [place] [address]., [address] Blood 10/11/2024 5:26 AM CDT 10/11/2024 5:31 AM CDT Danny Briseno MD LAB BLOOD ORDERABLES Final Res ult Performing Organization Address [facility] [[email or web address]] de Phone Number MARINO [address] [facility] [place] [address] * (ABNORMAL) eGFR (10/10/2024 7:12 AM CDT) [...] performed by: [facility], [address] [place] [address]., [address] Blood 10/10/2024 7:12 AM CDT 10/10/2024 7:45 AM CDT us Danny Briseno MD LAB BLOOD ORDERABLES Final Res ult Performing Organization Address [facility]/ZIP Co de Phone Number MARINO [address] [facility] [place] [address] * (ABNORMAL) CBC without differential (10/10/2024 7:12 AM CDT) [facility] WBC 8.68 3.80 - 9.90 K/cumm Comment:Testing performed by : [address], [address] Hgb 14.6 13.0 - 17.5 g/dL MARINO Comment:Testing performed by : [address], [address] Hct 44.7 38.9 - 50.3 % MARINO Comment:Testing performed by : [address], [address] Plt 232 150 - 400 K/cumm MARINO Comment:Testing performed by : [address], [address] MPV 10.3 9.1 - 12.3 fL MARINO Comment:Testing performed by : [address], [address] RBC 4.73 4.30 - 5.80 M/cumm MARINO Comment:Testing performed by : [address], [address] MCV 94.5 81.3 - 96.4 fL MARINO Comment:Testing performed by : [address], [address] MCH 30.9 27.1 - 33.3 pg MARINO Comment:Testing performed by : [address], [address] MCHC 32.7 32.3 - 35.7 g/dL MARINO Comment:Testing performed by : [address], [address] RDW CV 15.6(H) 11.1 - 14.9 % MARINO Comment:Testing performed by : [address], [address] RDW SD 53.5(H) 35.7 - 48.1 fL MARINO Comment:Testing performed by : [address], [address] NRBC abs 0.00 0.00 - 0.01 K/cumm AMR[facility] OLEARY Comment:Testing performed by : [address] [address] Blood 10/10/2024 7:12 AM CDT 10/10/2024 7:45 AM CDT us Danny Briseno MD LAB BLOOD ORDERABLES Final Res ult Performing Organization Address [facility] Co de Phone Number [address] [place] [place] [address] * Magnesium (10/10/2024 7:12 AM CDT) Pathologist [facility] Magnesium 2.4 1.4 - 2.5 mg/dL Comment:Testing performed by : [address] [address] Blood 10/10/2024 7:12 AM CDT 10/10/2024 7:45 AM CDT us Medardo Kendall MD LAB BLOOD ORDERABLE S Final Result Performing Organization Address [facility] [[email or web address]] de Phone Number [address] [address] * (ABNORMAL) Basic metabolic panel (10/10/2024 7:12 AM CDT) Pathologist [facility] Sodium 138 135 - 145 mmol/L Comment:Testing performed by : [address] [address] Potassium, pl 5.1(H) 3.3 - 4.9 mmol/L [facility] Comment:Testing performed by : [address] [address] Chloride 100 97 - 110 mmol/L [facility] Comment:Testing performed by : [address] [address] CO2 25 22 - 32 mmol/L [facility] Comment:Testing performed by : [address] [address] Anion gap 13 2 - 15 mmol/L [facility] Comment:Testing performed by : [address] [address] BUN 38(H) 6 - 25 mg/dL MARINO Comment:Testing performed by : [address] [address] Creatinine 1.49(H) 0.80 - 1.30 mg/dL MARINO Comment:Testing performed by : [address] [address] Glucose 83 70 - 199 mg/dL MARNIO Comment: Interpretive Data Fasting glucose >/= 126 [...] was last revised 2022. Testing performed by: [address] [address] Calcium 9.8 8.5 - 10.3 mg/dL MARINO Comment:Testing performed by : [address] [address] Blood 10/10/2024 7:12 AM CDT 10/10/2024 7:45 AM CDT us Danny Briseno MD LAB BLOOD ORDERABLES Final Res ult MARINO [address] [facility] [place] [address] * eGFR (10/09/2024 11:53 AM [...] was last reviewed 2021. Testing performed by: [address] [address] Blood 10/09/2024 11:5 3 AM CDT 10/09/2024 11:57 AM CDT Danny Briseno MD LAB BLOOD ORDERABLES Final Res ult [facility] [address] [facility] [place] [address] * (ABNORMAL) CBC without differential (10/09/2024 11:53 AM CDT) WBC 7.74 3.80 - 9.90 K/cumm Comment:Testing performed by : [address] [address] Hgb 14.6 13.0 - 17.5 g/dL [facility] Comment:Testing performed by : [address] [address] Hct 44.9 38.9 - 50.3 % [facility] Comment:Testing performed by : [address] [address] Plt 196 150 - 400 K/cumm [facility] Comment:Testing performed by : [address] [address] MPV 9.8 9.1 - 12.3 fL [facility] Comment:Testing performed by : [address] [address] RBC 4.74 4.30 - 5.80 M/cumm [facility] Comment:Testing performed by : [address] [address] MCV 94.7 81.3 - 96.4 fL [facility] Comment:Testing performed by : [address] [address] MCH 30.8 27.1 - 33.3 pg [facility] Comment:Testing performed by : [address], [address] MCHC 32.5 32.3 - 35.7 g/dL MARINO Comment:Testing performed by : [address], [address] RDW CV 15.5(H) 11.1 - 14.9 % MARINO Comment:Testing performed by : [address], [address] RDW SD 53.1(H) 35.7 - 48.1 fL MARINO Comment:Testing performed by : [address], [address] NRBC abs 0.00 0.00 - 0.01 K/cumm MARINO Comment:Testing performed by : [address], [address] Blood 10/09/2024 11:5 3 AM CDT 10/09/2024 11:57 AM CDT us Danny Briseno MD LAB BLOOD ORDERABLES Final Res ult MARINO [address] [facility] [place] [address] * (ABNORMAL) Basic metabolic panel (10/09/2024 11:53 AM CDT) Sodium 135 135 - 145 mmol/L Comment:Testing performed by : [address], [address] Potassium, pl 4.8 3.3 - 4.9 mmol/L [facility] Comment:Testing performed by : [address] [address] Chloride 100 97 - 110 mmol/L MARINO Comment:Testing performed by : [address] [address] CO2 25 22 - 32 mmol/L MARINO Comment:Testing performed by : [address] [address] Anion gap 10 2 - 15 mmol/L MARINO Comment:Testing performed by : [address] [address] BUN 31(H) 6 - 25 mg/dL MARINO Comment:Testing performed by : [address] [address] Creatinine 1.21 0.80 - 1.30 mg/dL MARINO Comment:Testing performed by : [address] [address] Glucose 132 70 - 199 mg/dL MARINO [...] was last revised 2022. Testing performed by: [address] [address] Calcium 9.7 8.5 - 10.3 mg/dL MARINO Comment:Testing performed by : [address] [address] Blood 10/09/2024 11:5 3 AM CDT 10/09/2024 11:57 AM CDT us Danny Briseno MD LAB BLOOD ORDERABLES Final Res ult [facility] [address] [facility] [place] [address] * eGFR (10/08/2024 4:39 AM CDT) eGFR [...] was last reviewed 2021. Testing performed by: [address] [address] Blood 10/08/2024 4:39 AM CDT 10/08/2024 5:28 AM CDT us Danny Briseno MD LAB BLOOD ORDERABLES Final Res ult MARINO [address] [facility] [place] [address] * (ABNORMAL) CBC without differential (10/08/2024 4:39 AM CDT) [facility] WBC 7.77 3.80 - 9.90 K/cumm Comment:Testing performed by : [address] [address] Hgb 14.0 13.0 - 17.5 g/dL [facility] Comment:Testing performed by : [address] [address] Hct 43.5 38.9 - 50.3 % [facility] Comment:Testing performed by : [address] [address] Plt 206 150 - 400 K/cumm [facility] Comment:Testing performed by : [address] [address] MPV 10.0 9.1 - 12.3 fL [facility] Comment:Testing performed by : [address] [address] RBC 4.57 4.30 - 5.80 M/cumm [facility] Comment:Testing performed by : [address] [address] MCV 95.2 81.3 - 96.4 fL [facility] Comment:Testing performed by : [address] [address] MCH 30.6 27.1 - 33.3 pg [facility] Comment:Testing performed by : [address] [address] MCHC 32.2(L) 32.3 - 35.7 g/dL MARINO Comment:Testing performed by : [address] [address] RDW CV 15.4(H) 11.1 - 14.9 % MARINO Comment:Testing performed by : [address] [address] RDW SD 53.7(H) 35.7 - 48.1 fL MARINO Comment:Testing performed by : [address] [address] NRBC abs 0.00 0.00 - 0.01 K/cumm [facility] Comment:Testing performed by : [address] [address] Blood 10/08/2024 4:39 AM CDT 10/08/2024 5:30 AM CDT us Danny Briseno MD LAB BLOOD ORDERABLES Final Res ult MARINO [address] [facility] [place] [address] * Magnesium (10/08/2024 4:39 AM CDT) Magnesium 2.3 1.4 - 2.5 mg/dL Comment:Testing performed by : [address] [address] Blood 10/08/2024 4:39 AM CDT 10/08/2024 5:28 AM CDT us Medardo Kendall MD LAB BLOOD ORDERABLE S Final Result [facility] [address] [facility] [place] [address] * Basic metabolic panel (10/08/2024 4:39 AM CDT) Pathologist [facility] Sodium 135 135 - 145 mmol/L Comment:Testing performed by : [address] [address] Potassium, pl 4.6 3.3 - 4.9 mmol/L MARINO Comment:Testing performed by : [address] [address] Chloride 100 97 - 110 mmol/L MARINO Comment:Testing performed by : [address] [address] CO2 24 22 - 32 mmol/L MARINO Comment:Testing performed by : [address] [address] Anion gap 11 2 - 15 mmol/L MARINO Comment:Testing performed by : [address] [address] BUN 23 6 - 25 mg/dL MARINO Comment:Testing performed by : [address] [address] Creatinine 1.15 0.80 - 1.30 mg/dL MARINO Comment:Testing performed by : [address] [address] Glucose 103 70 - 199 mg/dL MARINO [...] performed by: [facility], [address] [place] [address]., [address] Calcium 9.5 8.5 - 10.3 mg/dL [facility] Comment:Testing performed by : [facility], [address] [place] [address]., [address] Blood 10/08/2024 4:39 AM CDT 10/08/2024 5:28 AM CDT Danny Briseno MD LAB BLOOD ORDERABLES Final Res ult MARINO [address] [facility] [place], [place] [id number] * eGFR (10/07/2024 4:18 AM CDT) eGFR [...] was last reviewed 2021. Testing performed by: [address] [address] Blood 10/07/2024 4:18 AM CDT 10/07/2024 4:30 AM CDT us Danny Briseno MD LAB BLOOD ORDERABLES Final Res ult MARINO [address] [facility] [place] [address] * (ABNORMAL) CBC without differential (10/07/2024 4:18 AM CDT) WBC 6.86 3.80 - 9.90 K/cumm Comment:Testing performed by : [address] [address] Hgb 13.5 13.0 - 17.5 g/dL MARINO Comment:Testing performed by : [address] [address] Hct 42.4 38.9 - 50.3 % MARINO Comment:Testing performed by : [address] [address] Plt 168 150 - 400 K/cumm MARINO Comment:Testing performed by : [address] [address] MPV 9.4 9.1 - 12.3 fL MARINO Comment:Testing performed by : [address] [address] RBC 4.38 4.30 - 5.80 M/cumm MARINO Comment:Testing performed by : [address] [address] MCV 96.8(H) 81.3 - 96.4 fL MARINO Comment:Testing performed by : [address] [address] MCH 30.8 27.1 - 33.3 pg MARINO Comment:Testing performed by : [address] [address] MCHC 31.8(L) 32.3 - 35.7 g/dL MARINO Comment:Testing performed by : [address] [address] RDW CV 15.3(H) 11.1 - 14.9 % MARINO Comment:Testing performed by : [address], [address] RDW SD 55.0(H) 35.7 - 48.1 fL MARINO Comment:Testing performed by : [address], [address] NRBC abs 0.00 0.00 - 0.01 K/cumm MARINO Comment:Testing performed by : [address], [address] Blood 10/07/2024 4:18 AM CDT 10/07/2024 4:30 AM CDT us Danny Briseno MD LAB BLOOD ORDERABLES Final Res ult Performing Organization Address [facility] Co de Phone Number [address] [place] [address] * Creatine kinase (CK), total (10/07/2024 4:18 AM CDT) Pathologist [facility] CK 170 40 - 300 Units/L Comment:Testing performed by : [address] [address] Blood 10/07/2024 4:18 AM CDT 10/07/2024 4:30 AM CDT Medardo Kendall MD LAB BLOOD ORDERABLE S Final Result Performing Organization Address [facility] Co de Phone Number [address] [place] [address] * (ABNORMAL) Lipid panel (10/07/2024 4:18 AM CDT) Pathologist [facility] Cholesterol 108 30 - 199 mg/dL Comment: [...] last revised on 2017. Testing performed by: [address] [address] Triglycerides 57 <=149 mg/dL MARINO Comment: Interpretive [...] last revised on 2017. Testing performed by: [address] [address] HDL 31(L) >=40 mg/dL MARINO Comment: Interpretive [...] last revised on 2017. Testing performed by: [address] [address] LDL, calculated 64 <=129 mg/dL MARINO Comment: [...] last revised on 2023. Testing performed by: [address] [address] Non-HDL Cholesterol 77 mg/dL [facility] Comment: [...] last revised on 2017. Testing performed by: [address] [address] Chol/HDL ratio 3 [facility] Comment:Testing performed by : [address] [address] Blood 10/07/2024 4:18 AM CDT 10/07/2024 4:30 AM CDT us Macrina Marc NP LAB BLOOD ORDERABLES Final Result [facility] [address] [facility] [place] [address] * Basic metabolic panel (10/07/2024 4:18 AM CDT) Sodium 138 135 - 145 mmol/L Comment:Testing performed by : [address] [address] Potassium, pl 3.8 3.3 - 4.9 mmol/L MARINO Comment:Testing performed by : [address] [address] Chloride 101 97 - 110 mmol/L MARINO Comment:Testing performed by : [address], [place]., [address] CO2 28 22 - 32 mmol/L MARINO Comment:Testing performed by : [address], [place]., [address] Anion gap 9 2 - 15 mmol/L MARINO Comment:Testing performed by : [address] [address] BUN 22 6 - 25 mg/dL MARINO Comment:Testing performed by : [address], [place]., [address] Creatinine 1.21 0.80 - 1.30 mg/dL MARINO Comment:Testing performed by : [address] [address] Glucose 105 70 - 199 mg/dL MARINO [...] was last revised 2022. Testing performed by: [address], [place]., [address] Calcium 9.2 8.5 - 10.3 mg/dL MARINO Comment:Testing performed by : [address], [place]., [address] Blood 10/07/2024 4:18 AM CDT 10/07/2024 4:30 AM CDT us Danny Briseno MD LAB BLOOD ORDERABLES Final Res ult MARINO [address] [facility] [place] [address] * US Vein Duplex Lower Extremity Bilateral Complete (10/06/2024 3:34 PM CDT) Anatomical Region Laterality Modality Vascular Bilateral Ultrasound 10/06/2024 2:46 PM CDT Narrative 10/08/2024 12:45 PM CDT Lower Extremity Venous Report Patient Name: CELINA PAK W : 1955 (69y 4m) Gender: M Study Date: 10/06/2024 02:46:53 PM Robotic Toy Inventor: Tim Jordan Location: [id number] Order Provider: DANNY BRISENO Quality: Adequate Ref [...] Gender: M Study Date: 10/06/2024 02:46:53 PM Robotic Toy Inventor: Tim Jordan Location: [id number] Order Provider: DANNY BRISENO Quality: Adequate Ref [...] Arterial - (10/06/2024 11:38 AM CDT) Pathologist [facility] pH, art POC 7.50(H) 7.35 - 7.45 Comment:Testing performed by : [address] [address] pCO2, art POC 43 35 - 45 mmHg MARINO Comment:Testing performed by : [address] [address] pO2, art POC 98 83 - 108 mmHg MARINO Comment:Testing performed by : [address] [address] HCO3, art (Calc) POC 34(H) 20 - 30 mmol/L MARINO Comment:Testing performed by : [address] [place]., [address] Base excess, art POC 9 mmol/L MARINO Comment: Interpretive Data No reference range established. Current interpretive data was last revised 2019. Testing performed by: [facility], [address] [place] [address]., [address] Blood 10/06/2024 11:3 8 AM CDT 10/06/2024 11:38 AM CDT Medardo Kendall MD LAB POCT ORDERABLES - DEVICE Final Result Performing Organization Address [facility] Co de Phone Number [place] [address] [facility] [place] [address] * HIV 1/2 Antibody plus p24 Antigen [...] GENERAL ORDERABLES Final Result Performing Organization Address [facility] Co de Phone Number [facility] [address] [facility] [place] [address] * Hepatitis panel, acute Blood (10/06/2024 10:56 [...] - GENERAL ORDERABLES Final Result MARINO [address] [facility] [place] [address] * (ABNORMAL) Troponin T high-sensitivity 6-hour (10/06/2024 9:23 AM CDT) Trop T hs 34(H) <=22 ng/L Comment: Interpretive Data For further hscTnT resources including the diagnostic algorithm and an aid in interpretation, copy and paste this link: [email or web address].testcatalog.org/show/[email or web address] Current Interpretive Data last revised 2020. Testing performed by: [address] [address] Trop T hs delta -3 ng/L MARINO Comment:Testing performed by : [address] [address] Trop T hs interp Insignificant MARINO Comment:Testing performed by : [address] [address] Blood 10/06/2024 9:23 AM CDT 10/06/2024 9:42 AM CDT Michael Escudero Jr., MD LAB BLOOD ORDERABLES Fi nal Result Performing Organization Address [facility] [[email or web address]] de Phone Number MARINO [address] [address] * (ABNORMAL) Troponin T high-sensitivity 4-hour (10/06/2024 6:40 AM CDT) Trop T hs 31(H) <=22 ng/L Comment: Interpretive Data For further hscTnT resources including the diagnostic algorithm and an aid in interpretation, copy and paste this link: [email or web address]/show/[email or web address] Current Interpretive Data last revised 2020. Testing performed by: [address] [address] Trop T hs delta -6 ng/L MARINO Comment:Testing performed by : [address] [address] Trop T hs interp Equivocal MARINO Comment:Testing performed by : [address] [address] Blood 10/06/2024 6:40 AM CDT 10/06/2024 7:09 AM CDT Michael Escudero Jr., MD LAB BLOOD ORDERABLES Fi nal Result Performing Organization Address [facility] [[email or web address]] de Phone Number MARINO [address] [address] * (ABNORMAL) Troponin T high-sensitivity 2-hour (10/06/2024 4:50 AM CDT) Trop T hs 31(H) <=22 ng/L Comment: Interpretive Data For further hscTnT resources including the diagnostic algorithm and an aid in interpretation, copy and paste this link: [email or web address]/show/[email or web address] Current Interpretive Data last revised 2020. Testing performed by: [address] [address] Trop T hs delta -6 ng/L [facility] Comment:Testing performed by : [facility], [address] [place] [address]., [address] Trop T hs interp Equivocal MARINO Comment:Testing performed by : [facility], [address] [place] [address]., [id number] Blood 10/06/2024 4:50 AM CDT 10/06/2024 4:57 AM CDT us Michael Escudero Jr., MD LAB BLOOD ORDERABLES Fi nal Result MARINO OLEARY [address] [facility] [place] [address] * Blood culture Blood (10/06/2024 4:50 AM CDT) Report Final Report: No growth Comment:Testing performed by : [facility], [address] [place]., [address] Blood 10/06/2024 4:50 AM CDT 10/06/2024 8:22 [...] be performed for organism identification using the cihrag ePlex blood culture identification panel for gram positive (BCID-GP) and gram negative (BCID-GN) organisms. This nucleic acid amplification test detects microbial DNA in positive blood culture broth. This assay has been cleared by the [place] Food and Drug Administration and its performance characteristics have been verified by the [facility] Microbiology Laboratory. For questions about this culture, contact the Microbiology Laboratory at [phone]. Interpretive data was last revised on 24. Michael Escudero Jr., MD LAB MICROBIOLOGY - GENE RAL ORDERABLES Final Result MARINO [address] [facility] [place] [address] * Blood culture Blood (10/06/2024 4:21 AM CDT) Report Final Report: No growth Comment:Testing performed by : [facility], [address] [facility] [place]., [address] Blood 10/06/2024 4:21 AM CDT 10/06/2024 8:22 [...] performance characteristics have been verified by the [facility] Microbiology Laboratory. For questions about this culture, contact the Microbiology Laboratory at [phone]. Interpretive data was last revised on 24. us Michael Escudero Jr., MD LAB MICROBIOLOGY - [facility] ORDERABLES Final Result MARINO [address] [facility] Department of Laboratories [place], [place] [id number] * (ABNORMAL) Drugs of Abuse Screen, Urine without Confirmation (10/06/2024 3:58 AM CDT) Pathologist [facility] Amphetamine, ur Screen Positive, presumptive (A) CutOff 500ng/mL Comment: Interpretive Data - Amphetamines: Samples containing greater than 500 ng/mL d-methamphetamine or other cross-reacting amphetamine compounds are reported as positive. Amphetamine immunoassays are subject to significant false positive rates due to cross-reactivity of non-amphetamine drugs. Confirmatory testing required for definitive results. Current Interpretive Data was last reviewed 2022. Testing performed by: [address] [address] Barbiturates, ur Not Detected CutOff 200ng/mL MARINO Comment: Interpretive Data - Barbiturates: Samples containing greater than 200 ng/mL secobarbital or other cross-reacting barbiturate compounds are reported as positive. False positive and false negative results are possible. Confirmatory testing required for definitive results. Current Interpretive Data was last reviewed 2022. Testing performed by: [address] [address] Benzodiazepines, ur Screen Positive, presumptive (A) CutOff 100ng/mL MARINO Comment: Interpretive Data - Benzodiazepines: Samples containing greater than 100 ng/mL nordiazepam or other cross-reacting compounds are reported as positive. False positive and false negative results are possible. Confirmatory testing required for definitive results. Current Interpretive Data was last reviewed 2022. Testing performed by: [address] [address] Cannabinoids, ur Not Detected CutOff 50 ng/mL MARINO Comment: Interpretive Data - Cannabinoids: Samples containing greater than 50 ng/mL delta-9 THC -COOH or other cross- reacting compounds are reported as positive. False positive and false negative results are possible. Confirmatory testing required for definitive results. Current Interpretive Data was last reviewed 2022. Testing performed by: [address] [address] Cocaine, ur Not Detected CutOff 150ng/mL [facility] Comment: Interpretive Data - Cocaine: Samples containing greater than 150 ng/mL benzoylecgonine or other cross- reacting compounds are reported as positive. False positive and false negative results are possible. Confirmatory testing required for definitive results. Current Interpretive Data was last reviewed 2022. Testing performed by: [address] [address] Fentanyl, Ur Not Detected CutOff 5 ng/mL [facility] Comment: Interpretive Data - Fentanyl: Samples containing greater than 1 ng/mL fentanyl or other cross-reacting fentanyl compounds are reported as positive. False positive and false negative results are possible. Confirmatory testing required for definitive results. Current Interpretive Data was last reviewed 2022. Testing performed by: [facility], [address] [place] [address]., [address] Methadone, ur Not Detected CutOff 300ng/mL [facility] Comment: Interpretive Data - Methadone: Samples containing greater than 300 ng/mL d,l-methadone or other cross-reacting compounds are reported as positive. False positive and false negative results are possible. Confirmatory testing required for definitive results. Current Interpretive Data was last reviewed 2022. Testing performed by: [address] [address] Opiates, ur Not Detected CutOff 300ng/mL [facility] Comment: Interpretive Data - Opiates: Samples containing greater than 300 ng/mL morphine or other cross-reacting compounds are reported as positive. False positive and false negative results are possible. Confirmatory testing required for definitive results. Current Interpretive Data was last reviewed 2022. Testing performed by: [address] [address] Oxycodone, ur Not Detected CutOff 100ng/mL [facility] Comment: Interpretive Data - Oxycodone: Samples containing greater than 100 ng/mL oxycodone or other cross-reacting compounds are reported as positive. False positive and false negative results are possible. Confirmatory testing required for definitive results. Current Interpretive Data was last reviewed 2022. Testing performed by: [address] [address] Phencyclidine, ur Not Detected CutOff 25 ng/mL MARINO Comment: Interpretive Data - Phencyclidine: Samples containing greater than 25 ng/mL phencyclidine or other cross-reacting compounds are reported as positive. False positive and false negative results are possible. Confirmatory testing required for definitive results. Current Interpretive Data was last reviewed 2022. Testing performed by: [address] [address] Urine Creatinine 182 mg/dL MARINO Comment: Interpretive Data Urine Creatinine: < 10 mg/dL is extremely dilute = or > 10 but < 20 mg/dL is dilute = or > 20 mg/dL is normal Current Interpretive Data was last revised on 2017. Testing performed by: [address] [address] Urine 10/06/2024 3:58 AM CDT 10/06/2024 4:02 AM CDT Narrative [facility] - 10/06/2024 4:28 AM CDT Drug of Abuse screening is performed by immunoassay for medical purposes only. This is not to be used for Pain Management purposes. us Michael Escudero Jr., MD LAB URINE ORDERABLES nal Result MARINO [address] [facility] [place] [address] * XR Chest 1 Vw Portable (if [...] Molly Young M.D. SN: SN Report ID: [id number] Reading Location: [id number] Procedure Note Molly Young MD - 10/06/2024 [...] Molly Young M.D. SN: SN Report ID: [id number] Reading Location: [id number] Michael Escudero Jr., MD IMG XR PROCEDURES Final Result * ECG 12 lead (10/06/2024 2:42 AM CDT) [facility] Ventricular Rate EKG/Min 101 BPM [facility] Atrial Rate 101 BPM [facility] MI-Interval (MSEC) 174 ms [facility] QRS-Interval (MSEC) 118 ms [facility] QT-Interval (MSEC) 388 ms [facility] QTc 503 ms [facility] P [place] 58 degrees [facility] R [place] -19 degrees [facility] T [place] 141 degrees [facility] Diagnosis Sinus tachycardia Possible Left atrial enlargement Left ventricular hypertrophy with QRS widening and repolarization abnormality Abnormal ECG When compared with ECG of 04-NOV-2023 08:09, Vent. rate has increased BY 43 BPM Confirmed by CAITLIN BOATENG M.D. ([id number]) on 10/07/2024 3:20:55 PM [facility] 10/06/2024 2:42 AM CDT 10/07/2024 3:20 PM CDT us Michael Escudero Jr., MD ECG ORDERABLES Final R esult Performing Organization Address City/[facility] Co de Phone Number [facility] * (ABNORMAL) Troponin T high-sensitivity series (baseline, 2hr, 4hr, 6hr) (10/06/2024 2:40 AM CDT) Trop T hs 37(H) <=22 ng/L Comment: Interpretive Data For further hscTnT resources including the diagnostic algorithm and an aid in interpretation, copy and paste this link: https://nrl.testcatalog.org/show/[email or web address] Current Interpretive Data last revised 2020. Testing performed by: [facility], [address] [place] [address]., [address] Blood 10/06/2024 2:40 AM CDT 10/06/2024 2:43 AM CDT us Michael Escudero Jr., MD LAB BLOOD ORDERABLES Fi nal Result MARINO [address] [facility] [place] [address] * (ABNORMAL) eGFR (10/06/2024 2:40 AM CDT) Pathologist [facility] eGFR 54(L) >=60 mL/min/1. 73 m2 Comment: [...] was last reviewed 2021. Testing performed by: [address] [address] Blood 10/06/2024 2:40 AM CDT 10/06/2024 2:43 AM CDT us Michael Escudero Jr., MD LAB BLOOD ORDERABLES nal Result MARINO [address] [facility] [place] [address] * (ABNORMAL) Differential, auto (10/06/2024 2:40 AM CDT) Pathologist [facility] Neutrophil abs 3.88 1.50 - 6.50 K/cumm Comment:Testing performed by : [address] [address] Imm gran abs 0.01 0.00 - 0.10 K/cumm MARINO Comment:Testing performed by : [address] [address] Lymphocyte abs 1.99 0.80 - 3.30 K/cumm MARINO Comment:Testing performed by : [address] [address] Monocyte abs 0.61 0.20 - 0.80 K/cumm [facility] Comment:Testing performed by : [address] [address] Eosinophil abs 0.54(H) 0.00 - 0.50 K/cumm [facility] Comment:Testing performed by : [address], [place]., [address] Basophil abs 0.06 0.00 - 0.10 K/cumm [facility] Comment:Testing performed by : [address] [address] Neutrophil pct 54.8 % [facility] Comment: Interpretive Data Percent cell count reference ranges are not reported, since discordance with absolute values may lead to misinterpretation of CBC data. Current Interpretive Data was last revised on 2017. Testing performed by: [address] [address] Imm gran pct 0.1 % [facility] Comment: Interpretive Data Percent cell count reference ranges are not reported, since discordance with absolute values may lead to misinterpretation of CBC data. Current Interpretive Data was last revised on 2017. Testing performed by: [address] [address] Lymphocyte pct 28.1 % [facility] Comment: Interpretive Data Percent cell count reference ranges are not reported, since discordance with absolute values may lead to misinterpretation of CBC data. Current Interpretive Data was last revised on 2017. Testing performed by: [address] [address] Monocyte pct 8.6 % [facility] Comment: Interpretive Data Percent cell count reference ranges are not reported, since discordance with absolute values may lead to misinterpretation of CBC data. Current Interpretive Data was last revised on 2017. Testing performed by: [address] [address] Eosinophil pct 7.6 % [facility] Comment: Interpretive Data Percent cell count reference ranges are not reported, since discordance with absolute values may lead to misinterpretation of CBC data. Current Interpretive Data was last revised on 2017. Testing performed by: [facility], [address] [place] [address]., [address] Basophil pct 0.8 % MARINO OLEARY Comment: Interpretive Data Percent cell count reference ranges are not reported, since discordance with absolute values may lead to misinterpretation of CBC data. Current Interpretive Data was last revised on 2017. Testing performed by: [facility], [address] [place] [address]., [address] Blood 10/06/2024 2:40 AM CDT 10/06/2024 2:43 AM CDT us Michael Escudero Jr., MD LAB BLOOD ORDERABLES Fi nal Result MARINO [facility]LE[facility] [address] [facility] [place] [address] * (ABNORMAL) Pro B-type natriuretic peptide (10/06/2024 [...] Last Revised Date: 2017. Testing performed by: [address] [address] Blood 10/06/2024 2:40 AM CDT 10/06/2024 2:43 AM CDT us Michael Escudero Jr., MD LAB BLOOD ORDERABLES Fi nal Result [facility] [address] [facility] [place] [address] * (ABNORMAL) CBC with auto differential (10/06/2024 2:40 AM CDT) WBC 7.09 3.80 - 9.90 K/cumm Comment:Testing performed by : [address] [address] Hgb 12.8(L) 13.0 - 17.5 g/dL [facility] Comment:Testing performed by : [address] [address] Hct 40.4 38.9 - 50.3 % MARINO Comment:Testing performed by : [address] [address] Plt 175 150 - 400 K/cumm MARINO Comment:Testing performed by : [address] [address] MPV 9.4 9.1 - 12.3 fL [facility] Comment:Testing performed by : [address] [address] RBC 4.13(L) 4.30 - 5.80 M/cumm [facility] Comment:Testing performed by : [address] [address] MCV 97.8(H) 81.3 - 96.4 fL [facility] Comment:Testing performed by : [address] [address] MCH 31.0 27.1 - 33.3 pg [facility] Comment:Testing performed by : [address] [address] MCHC 31.7(L) 32.3 - 35.7 g/dL [facility] Comment:Testing performed by : [address] [address] RDW CV 15.4(H) 11.1 - 14.9 % [facility] Comment:Testing performed by : [address] [address] RDW SD 55.1(H) 35.7 - 48.1 fL [facility] Comment:Testing performed by : [address] [address] NRBC abs 0.00 0.00 - 0.01 K/cumm [facility] Comment:Testing performed by : [address] [address] Blood 10/06/2024 2:40 AM CDT 10/06/2024 2:43 AM CDT Michael Escudero Jr., MD LAB BLOOD ORDERABLES Fi nal Result MARINO [facility] [facility] Department of Laboratories [place], [place] [id number] * (ABNORMAL) Comprehensive metabolic panel (10/06/2024 2:40 AM CDT) Sodium 142 135 - 145 mmol/L Comment:Testing performed by : [address] [address] Potassium, pl 3.9 3.3 - 4.9 mmol/L [facility] Comment:Testing performed by : [address] [address] Chloride 104 97 - 110 mmol/L [facility] Comment:Testing performed by : [address] [address] CO2 30 22 - 32 mmol/L [facility] Comment:Testing performed by : [address] [address] Anion gap 8 2 - 15 mmol/L MARINO Comment:Testing performed by : [address] [address] BUN 19 6 - 25 mg/dL MARINO Comment:Testing performed by : [address] [address] Creatinine 1.43(H) 0.80 - 1.30 mg/dL MARINO Comment:Testing performed by : [address] [address] Glucose 90 70 - 199 mg/dL MARINO [...] was last revised 2022. Testing performed by: [address] [address] Calcium 9.4 8.5 - 10.3 mg/dL MARINO Comment:Testing performed by : [address] [address] Bilirubin, total 0.8 0.1 - 1.2 mg/dL MARINO Comment:Testing performed by : [address] [address] Protein, pl 7.2 6.5 - 8.5 g/dL MARINO Comment:Testing performed by : [address] [address] Albumin 3.8 3.5 - 5.0 g/dL MARINO Comment:Testing performed by : [address] [address] Alk phos 93 40 - 130 Units/L MARINO Comment:Testing performed by : [address] [place] [address] ALT 30 7 - 55 Units/L [facility] Comment:Testing performed by : [address] [address] AST 40 10 - 50 Units/L [facility]LE[facility] Comment:Testing performed by : [facility], [address] [place] [address]., [address] Blood 10/06/2024 2:40 AM CDT 10/06/2024 2:43 AM CDT Michael Escudero Jr., MD LAB BLOOD ORDERABLES Fi nal Result [facility] [address] [facility] [place] [address] * Cardiology Document Scan (08/31/2024 [...] LAB BLOOD ORDERABLES Final R esult [facility] [place] [address] * (ABNORMAL) Basic metabolic panel (08/13/2024 4:30 AM CDT) Sodium 140 135 - 145 mmol/L Potassium, pl 3.7 3.3 - 4.9 mmol/L [facility] Chloride 101 97 - 110 mmol/L [facility] CO2 33(H) 22 - 32 mmol/L [facility] Anion gap 6 2 - 15 mmol/L [facility] BUN 35(H) 6 - 25 mg/dL [facility] Creatinine 1.35(H) 0.80 - 1.30 mg/dL [facility] Glucose 125 70 - 199 mg/dL [facility] Comment: Interpretive Data Fasting glucose >/= [...] Calcium 9.2 8.5 - 10.3 mg/dL MARINO [facility] Blood 08/13/2024 4:30 AM CDT 08/13/2024 5:41 AM CDT us Debbi Joe MD LAB BLOOD ORDERABLES Final R esult [facility] [place] [address] * TRANSTHORACIC ECHO (TTE) COMPLETE W DOPPLER/CF W CONTRAST (08/12/2024 11:33 AM CDT) EF Mod BP 27 % CONS SCIMAGE Anatomical Region Laterality Modality Ultrasound 08/12/2024 10:2 4 AM CDT Narrative 08/12/2024 5:51 PM CDT [facility] [place] [address] Transthoracic Echocardiographic Report Patient Name: CELINA PAK W : 1955 (69y 2m) Gender: M Study Date: 08/12/2024 10:24:42 AM Ht(Inch): 72 Wt(Lb): 212.96 BSA: 2.22 [employer]or: Silva Angela Location: [id number] Order Provider: ALIYA VELEZ Heart Rate: 90 [...] Note Celina Rinaldi MD PhD - 08/12/2024 [facility] Cardiac Diagnostic Lab [address] [place] [id number] Transthoracic Echocardiographic Report Patient Name: CELINA PAK W : 1955 (69y 2m) Gender: M Study Date: 08/12/2024 10:24:42 AM Ht(Inch): 72 Wt(Lb): 212.96 BSA: 2.22 [employer] In[employer]or: Silva Angela Location: [id number] Order Provider:ALIYA VELEZ Heart Rate: 90 BMI: [...] LA Length 4C 6.60 cm MV Decel Sktm726.12 msec [ 104.00 - 258.00 ] LA [...] mmHg RA Volume Index 50.89 ml/m2 MR TVH340.1 cm RVOT Diam 4.90 cm TR Peak Vel2.9 m/s [ 1.0 - 2.8 ] AoR Diam 2D 4.09 cm [ 3.10 - 3.70 ] TR Peak PG33.6 mmHg Ao Root Index 1.84 cm/m2 [ 1.00 - 2.00 ] Asc Ao Diam 2D3.67 cm Asc Ao Index1.65 cm/m2 Electronically Signed By: Celina Rinaldi MD 08/12/2024 5:51:27 PM CDT [facility] Jaime Velez MD CV ECHO PROCEDURES Antonette l Result * Lactate (08/12/2024 2:57 AM CDT) Lactate 0.8 0.7 - 2.0 mmol/L Blood 08/12/2024 2:57 AM CDT 08/12/2024 3:18 AM CDT Aliya Velez MD LAB BLOOD ORDERABLES Fi nal Result Performing Organization Address City/[facility] Co de Phone Number [facility] [place] [place] [address] * (ABNORMAL) eGFR (08/11/2024 9:17 PM CDT) [...] ORDERABLES Fi nal Result Performing Organization Address City/[facility]/ZIP Co de Phone Number MARINO [facility] [place] [address] * Magnesium (08/11/2024 9:17 PM CDT) Magnesium 1.9 1.4 - 2.5 mg/dL Blood 08/11/2024 9:17 PM CDT 08/11/2024 9:51 PM CDT Aliya Velez MD LAB BLOOD ORDERABLES Fi nal Result Performing Organization Address City/[facility]/ZIP Co de Phone Number [facility] [place] [address] * (ABNORMAL) Basic metabolic panel (08/11/2024 9:17 PM CDT) Sodium 141 135 - 145 mmol/L Potassium, pl 4.1 3.3 - 4.9 mmol/L [facility] Comment:Hemolyzed; Potassium value may be falsely elevated by as much as 0.3-0.5 mmol/L. Suggest redraw and reanalysis. Chloride 97 97 - 110 mmol/L [facility] CO2 33(H) 22 - 32 mmol/L [facility] Anion gap 11 2 - 15 mmol/L [facility] BUN 34(H) 6 - 25 mg/dL [facility] Creatinine 1.60(H) 0.80 - 1.30 mg/dL [facility] Glucose 81 70 - 199 mg/dL [facility] Comment: Interpretive Data Fasting glucose >/= [...] Calcium 9.3 8.5 - 10.3 mg/dL [facility] Blood 08/11/2024 9:17 PM CDT 08/11/2024 9:51 PM CDT Aliya Velez MD LAB BLOOD ORDERABLES Fi nal Result Performing Organization Address City/[facility]/ZIP Co de Phone Number MARINO [facility] [place] [address] * (ABNORMAL) Drugs of Abuse Screen, Urine [...] Barbiturates, ur Not Detected CutOff 200ng/mL [facility] Comment: Interpretive Data - Barbiturates: Samples containing greater than 200 ng/mL secobarbital or other cross-reacting barbiturate compounds are reported as positive. False positive and false negative results are possible. Confirmatory testing required for definitive results. Current Interpretive Data was last reviewed 2022. Benzodiazepines, ur Not Detected CutOff 100ng/mL [facility] Comment: Interpretive Data - Benzodiazepines: Samples containing greater than 100 ng/mL nordiazepam or other cross-reacting compounds are reported as positive. False positive and false negative results are possible. Confirmatory testing required for definitive results. Current Interpretive Data was last reviewed 2022. Cannabinoids, ur Not Detected CutOff 50 ng/mL [facility] Comment: Interpretive Data - Cannabinoids: Samples containing greater than 50 ng/mL delta-9 THC -COOH or other cross- reacting compounds are reported as positive. False positive and false negative results are possible. Confirmatory testing required for definitive results. Current Interpretive Data was last reviewed 2022. Cocaine, ur Not Detected CutOff 150ng/mL [facility] Comment: Interpretive Data - Cocaine: Samples containing [...] Methadone, ur Not Detected CutOff 300ng/mL [facility] Comment: Interpretive Data - Methadone: Samples containing greater than 300 ng/mL d,l-methadone or other cross-reacting compounds are reported as positive. False positive and false negative results are possible. Confirmatory testing required for definitive results. Current Interpretive Data was last reviewed 2022. Opiates, ur Not Detected CutOff 300ng/mL [facility] Comment: Interpretive Data - Opiates: Samples containing greater than 300 ng/mL morphine or other cross-reacting compounds are reported as positive. False positive and false negative results are possible. Confirmatory testing required for definitive results. Current Interpretive Data was last reviewed 2022. Oxycodone, ur Not Detected CutOff 100ng/mL MAR[facility] Comment: Interpretive Data - Oxycodone: Samples containing greater than 100 ng/mL oxycodone or other cross-reacting compounds are reported as positive. False positive and false negative results are possible. Confirmatory testing required for definitive results. Current Interpretive Data was last reviewed 2022. Phencyclidine, ur Not Detected CutOff 25 ng/mL [facility] Comment: Interpretive Data - Phencyclidine: Samples containing greater than 25 ng/mL phencyclidine or other cross-reacting compounds are reported as positive. False positive and false negative results are possible. Confirmatory testing required for definitive results. Current Interpretive Data was last reviewed 2022. Urine Creatinine 9 mg/dL [facility] [facility] Comment: Interpretive Data Urine Creatinine: < 10 mg/dL is extremely dilute = or > 10 but < 20 mg/dL is dilute = or > 20 mg/dL is normal Current Interpretive Data was last revised on 2017. Urine 08/11/2024 9:43 AM CDT 08/11/2024 10:49 AM CDT Narrative [facility] - 08/11/2024 11:54 AM CDT Drug of Abuse screening is performed by immunoassay for medical purposes only. This is not to be used for Pain Management purposes. If Detected, confirmation testing will be performed for Amphetamines, Cocaine, Fentanyl, Methadone, Opiates, Oxycodone or Phencyclidine. Lucie Tai NP LAB URINE ORDERABLES Final Result Performing Organization Address [facility] [[email or web address]] de Phone Number [facility] [place] [address] * (ABNORMAL) Amphetamine Confirmation, Urine (08/11/2024 9:43 [...] needed. Performance characteristics were determined by the [facility] in a manner consistent with CLIA requirement and has not been cleared or approved by the U.S. Food and Drug Administration. Current interpretive data was last revised on 2020. Urine 08/11/2024 9:43 AM CDT 08/11/2024 11:01 AM CDT Lucie Tai NP LAB URINE ORDERABLES Final Result Performing Organization Address [facility] Co de Phone Number [facility] [place] [address] * Troponin I high-sensitivity 2-hour (08/11/2024 3:24 AM CDT) Trop I hs 25 <=35 ng/L Comment: Interpretive Data For further hscTnI resources including the diagnostic algorithm and an aid in interpretation, copy and paste this link: [email or web address].testcatalog.org/show/[email or web address] Current Interpretive Data last revised 2019. Trop I hs delta See Comment ng/L [facility] Comment:Inappropriate collec tion time to report a delta. Trop I hs pct delta See Comment % [facility] Comment:Inappropriate collec tion time to report a delta. Trop I hs interp See Comment [facility] Comment:Inappropriate collec tion time to report a delta. Blood 08/11/2024 3:24 AM CDT 08/11/2024 3:36 AM CDT us Melly Moctezuma MD LAB BLOOD ORDERABLES Final Result [facility] [place] [address] * (ABNORMAL) Pro B-type natriuretic peptide (08/11/2024 [...] LAB BLOOD ORDERABLES Final Re sult [facility] [place] [address] * XR Chest PA Lateral 2 Views [...] MD LAB BLOOD ORDERABLES Final Re sult [facility] [place] [address] * (ABNORMAL) eGFR (08/11/2024 12:11 AM CDT) [...] LAB BLOOD ORDERABLES Final Re sult [facility] [place] [address] * Differential, auto (08/11/2024 12:11 AM CDT) Neutrophil abs 4.47 1.50 - 6.50 K/cumm Imm gran abs 0.02 0.00 - 0.10 K/cumm [facility] Lymphocyte abs 1.79 0.80 - 3.30 K/cumm [facility] Monocyte abs 0.50 0.20 - 0.80 K/cumm [facility] Eosinophil abs 0.24 0.00 - 0.50 K/cumm [facility] Basophil abs 0.07 0.00 - 0.10 K/cumm [facility] Neutrophil pct 63.0 % [facility] Comment: Interpretive Data Percent cell count reference ranges are not reported, since discordance with absolute values may lead to misinterpretation of CBC data. Current Interpretive Data was last revised on 2017. Imm gran pct 0.3 % [facility] Comment: Interpretive Data Percent cell count reference ranges are not reported, since discordance with absolute values may lead to misinterpretation of CBC data. Current Interpretive Data was last revised on 2017. Lymphocyte pct 25.2 % [facility] Comment: Interpretive Data Percent cell count reference ranges are not reported, since discordance with absolute values may lead to misinterpretation of CBC data. Current Interpretive Data was last revised on 2017. Monocyte pct 7.1 % [facility] Comment: Interpretive Data Percent cell count reference ranges are not reported, since discordance with absolute values may lead to misinterpretation of CBC data. Current Interpretive Data was last revised on 2017. Eosinophil pct 3.4 % [facility] Comment: Interpretive Data Percent cell count reference ranges are not reported, since discordance with absolute values may lead to misinterpretation of CBC data. Current Interpretive Data was last revised on 2017. Basophil pct 1.0 % [facility] Comment: Interpretive Data Percent cell count reference ranges are not reported, since discordance with absolute values may lead to misinterpretation of CBC data. Current Interpretive Data was last revised on 2017. Blood 08/11/2024 12:1 1 AM CDT 08/11/2024 12:27 AM CDT Kiel Oliveira MD LAB BLOOD ORDERABLES Final Re sult Performing Organization Address City/[facility]/ZIP Co de Phone Number [facility] Department [place] [address] * (ABNORMAL) CBC with auto differential (08/11/2024 12:11 AM CDT) WBC 7.09 3.80 - 9.90 K/cumm Hgb 13.2 13.0 - 17.5 g/dL [facility] Hct 41.2 38.9 - 50.3 % [facility] Plt 192 150 - 400 K/cumm [facility] MPV 10.0 9.1 - 12.3 fL [facility] RBC 4.20(L) 4.30 - 5.80 M/cumm [facility] MCV 98.1(H) 81.3 - 96.4 fL [facility] MCH 31.4 27.1 - 33.3 pg [facility] MCHC 32.0(L) 32.3 - 35.7 g/dL [facility] RDW CV 14.7 11.1 - 14.9 % [facility] RDW SD 53.1(H) 35.7 - 48.1 fL [facility] NRBC abs 0.00 0.00 - 0.01 K/cumm [facility] Blood 08/11/2024 12:1 1 AM CDT 08/11/2024 12:27 AM CDT Kiel Oliveira MD LAB BLOOD ORDERABLES Final Re sult [facility] [place] [address] * (ABNORMAL) Comprehensive metabolic panel (08/11/2024 12:11 AM CDT) Sodium 141 135 - 145 mmol/L Potassium, pl 4.8 3.3 - 4.9 mmol/L [facility] Chloride 103 97 - 110 mmol/L [facility] CO2 32 22 - 32 mmol/L [facility] Anion gap 6 2 - 15 mmol/L [facility] BUN 32(H) 6 - 25 mg/dL [facility] Creatinine 1.44(H) 0.80 - 1.30 mg/dL [facility] Glucose 103 70 - 199 mg/dL [facility] Comment: Interpretive Data Fasting glucose >/= [...] Calcium 9.5 8.5 - 10.3 mg/dL [facility] Bilirubin, total 0.8 0.1 - 1.2 mg/dL [facility] Protein, pl 7.3 6.5 - 8.5 g/dL [facility] Albumin 3.8 3.5 - 5.0 g/dL [facility] Alk phos 95 40 - 130 Units/L [facility] ALT 56(H) 7 - 55 Units/L [facility] AST 49 10 - 50 Units/L [facility] Blood 08/11/2024 12:1 1 AM CDT 08/11/2024 12:26 AM CDT us Kiel Oliveira MD LAB BLOOD ORDERABLES Final Re sult [facility] [place] [address] * ECG 12-LEAD (08/10/2024 11:56 PM CDT) Narrative [facility] - 08/10/2024 11:56 PM CDT [...] ECG ORDERABLES Final Result Performing Organization Address City/[facility] Co de Phone Number [facility] [...] performed by: [facility], [address] [place] [address]., [id number] Blood 12/12/2023 10:0 0 AM CDT 12/12/2023 12:16 PM CDT us Lisa JACINTO LAB BLOOD ORDERABLES Fin al Result Performing Organization Address [facility] Co de Phone Number [facility] [address] [facility] [place] [address] from Last 3 Months or Most Recently Relevant to Health Maintenance Insurance [employer] [facility] MEDICARE [facility] Advance Directives For more information, please contact: [phone] * Full Code (Latest Code Status on File) Date Activated Date Inactivated Comments 10/06/2024 5:48 AM 10/11/2024 4:56 PM * Full Code Date Activated Date Inactivated Comments 08/11/2024 5:02 PM 08/14/2024 12:27 AM * Full Code Date Activated Date Inactivated Comments 11/03/2023 4:46 PM 11/06/2023 6:41 PM * Full Code Date Activated Date Inactivated Comments 07/18/2023 11:06 AM 07/19/2023 7:36 PM Care Teams Thrasher Feeder Relationship Specialty Start Date End Date Lashae Marcano NP [address] [place] [address] PCP - General Family Practice 08/28/24 [place] [id number] [address] Consulting Physician Cardiovascular Disease 07/19/23
--- NOTE | 2024-11-06 06:38 | PC.NURSE ---
Pt able to ambulate with steady gait, no signs of distress noted
--- NOTE | 2024-11-06 09:00 | ADMGEN ---
This patient, Jeevan Castellanos, was admitted to Medical Room 240-01. Patient/family oriented to hospital policies and general routines including ID bracelet, bed and alarms, visiting hours, pain management, procedures, bathroom and other care routines, personal items, smoking policy, room service/diet, and visiting hours. Information on how to activate the Rapid Response Team has been discussed. Patient/Family are encouraged to report perceived risks to care and to ask questions if they do not understand what they are told or what they should do.
[2024-11-06 11:56] LABS: Cannabinoid Screen Urine Negative (Negative)
[2024-11-06] MEDS: ASPIRIN 81 MG CHEWABLE TABLET PO (12:03)
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
[2024-11-06] MEDS: SACUBITRIL/VALSARTAN 24-26 MG TABLET 1 TAB PO (20:10)
[2024-11-07] VITALS (12 sets, daily range): BP systolic 108–127; BP diastolic 53–78; PULSE 55–81; RESP 17–18; TEMP 36.3–36.7; O2SAT 94–100
[2024-11-07 05:39] LABS: Hematocrit 39.8 % (42.0-52.0); Hemoglobin 12.9 g/dL (14.0-18.0); Mean Corpuscular HGB Conc 32.4 g/dl (32-36); Mean Corpuscular Hemoglobin 31.3 pg (26-34); Mean Corpuscular Volume 96.6 fl (80-100); Platelet Count Result 185 k/mm3 (150-375); Red Blood Count 4.12 M/mm3 (4.6-6.20); White Blood Count 5.8 K/mm3 (4.5-10.0)
[2024-11-07 06:03] LABS: Anion Gap 6 mmol/L (4-12); Blood Urea Nitrogen 22 mg/dL (9-20); Calcium 8.9 mg/dL (8.4-10.2); Carbon Dioxide 26 mmol/L (22-30); Chloride 103 mmol/L (98-107); Estimated CRCL calculation 64 ml/min; Estimated Glomerular Filt Rate > 60; Glucose 77 mg/dL (65-110); Magnesium 1.8 mg/dL (1.6-2.3); Potassium 3.2 mmol/L (3.4-5.0); Sodium 135 mmol/L (137-145)
[2024-11-07] MEDS: NEOMYCIN/POLYMYXIN/BACITRACIN OINTMENT 15 GM TUBE 1 APPLIC TOPICAL (09:52)
[2024-11-07] MEDS: SACUBITRIL/VALSARTAN 24-26 MG TABLET 1 TAB PO ×2 (09:53→20:12)
[2024-11-07] MEDS: ASPIRIN 81 MG CHEWABLE TABLET PO (09:53)
[2024-11-07] MEDS: METOPROLOL SUCCINATE EXT REL 25 MG TABCR PO (09:53)
[2024-11-07] MEDS: FUROSEMIDE INJ 40 MG/4 ML VIAL IV PUSH ×2 (09:56→17:08)
[2024-11-07] MEDS: ENOXAPARIN 40 MG/0.4 ML SYRINGE SUB-Q (09:56)
[2024-11-07] MEDS: POTASSIUM CHLORIDE 20 MEQ PACKET (FOR LIQUID) 40 MEQ PO (10:01)
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
[2024-11-07] MEDS: MAGNESIUM OXIDE 400 MG TABLET PO (17:08)
[2024-11-08] VITALS (8 sets, daily range): BP systolic 128–139; BP diastolic 86–98; PULSE 68–105; RESP 18–20; TEMP 36.7–37.2; O2SAT 98
[2024-11-08 05:24] LABS: Hematocrit 45.4 % (42.0-52.0); Hemoglobin 14.4 g/dL (14.0-18.0); Mean Corpuscular HGB Conc 31.7 g/dl (32-36); Mean Corpuscular Hemoglobin 31.0 pg (26-34); Mean Corpuscular Volume 97.8 fl (80-100); Platelet Count Result 203 k/mm3 (150-375); Red Blood Count 4.64 M/mm3 (4.6-6.20); White Blood Count 8.0 K/mm3 (4.5-10.0)
[2024-11-08 05:48] LABS: Anion Gap 9 mmol/L (4-12); Blood Urea Nitrogen 19 mg/dL (9-20); Calcium 8.9 mg/dL (8.4-10.2); Carbon Dioxide 28 mmol/L (22-30); Chloride 102 mmol/L (98-107); Estimated CRCL calculation 66 ml/min; Estimated Glomerular Filt Rate > 60; Glucose 84 mg/dL (65-110); Magnesium 1.8 mg/dL (1.6-2.3); Potassium 3.8 mmol/L (3.4-5.0); Sodium 139 mmol/L (137-145)
[2024-11-08] MEDS: FUROSEMIDE 40 MG TABLET PO ×2 (08:48→17:46)
[2024-11-08] MEDS: ASPIRIN 81 MG CHEWABLE TABLET PO (08:48)
[2024-11-08] MEDS: SPIRONOLACTONE 25 MG TABLET PO (08:49)
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
[2024-11-08] MEDS: ACETAMINOPHEN 325 MG TABLET 650 MG PO (13:52)
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
== END 2024-11-08 18:55 | disposition home or self-care (01) ==
LOC: ANHED 07:32 → ANH2MED 11:38
PROVIDERS: Physician Assistant; Admitting Provider Internal Medicine; Emergency Provider Student in an Organized Health Care Education/Training Program; PCP Nurse Practitioner Family; Visit Provider Family Medicine
DX: I11.0 Hypertensive heart disease with heart failure (principal); I50.23 Acute on chronic systolic (congestive) heart failure; F19.10 Other psychoactive substance abuse, uncomplicated; R79.89 Other specified abnormal findings of blood chemistry; I42.8 Other cardiomyopathies; I25.10 Atherosclerotic heart disease of native coronary artery without angina pectoris; J44.9 Chronic obstructive pulmonary disease, unspecified; Z66 Do not resuscitate; D64.9 Anemia, unspecified; Z59.00 Homelessness unspecified; Z79.51 Long term (current) use of inhaled steroids; Z79.82 Long term (current) use of aspirin; Z79.899 Other long term (current) drug therapy; Z87.820 Personal history of traumatic brain injury; Z88.2 Allergy status to sulfonamides; Z91.199 Patient's noncompliance with other medical treatment and regimen due to unspecified reason
CPT/HCPCS: 36415; 71046; 80048; 80053; 80307; 83735; 83880; 85025; 85027; 85380; 93005; 96372; 96374; 96376; 97110; 97161; 97165; 97530; 99285; A9270; G0378; J1650; J1938

== ENCOUNTER 2024-12-25 04:02 | Emergency (ER) | payer MEDICARE, MEDICAID, SELFPAY ==
--- OUTSIDE RECORDS SUMMARY | 2024-10-13 04:00 | XMS_ITS ---
Author Organization [facility] Address [address] [place] [address] Care Team Providers Care Roving Hauler Name Role Phone Govind Lawson Primary Care Provider Rashaun Thurman [phone] REASON FOR VISIT admit lab work Social History Sex Assigned At : Social History Observation Description Sex Assigned At Male Encounters Encounter Location Date Provider Diagnosis [place] [place] [address] 10/13/2024 Rashaun Thurman Plan Of Treatment No Information Progress Notes * Jeevan PAK WDOB: [birth year] (69 yo M)Acc No.[id number]:10/13/2024 UNLOCKED PROGRESS NOTE Patient: Bladimir OROPEZA Jeevan Carey Provider: Juan Francisco Thurman :1955 A ge:69 Y S ex:Male Date:10/13/2024 Address[id number] Pcp:Govind Lawson Check In:08:47 AM [facility] Subjective: * Chief Complaints: * 1 . Admit lab work. * Medical History: Objective: * Vitals: Assessment: Plan: * Treatment: * * Electronic signature of Clifton Thurman , [id number] on 12/25/2024 at 05:09 AM CDT Sign off status: Pending * Provider: Juan Francisco Thurman Date: 0 10/13/2024 Generated for Yue maharaj/Otoniel/eTransmitting on: 0 12/25/2024 05:09 AM CDT
--- NOTE | ~2024-12-25 | CT_ITS ---
EXAMINATION: CT cervical spine wo con COMPARISON: None HISTORY: fall, trauma TECHNIQUE: Axial images were obtained through the spine without IV contrast. Coronal, sagittal reconstruction images were obtained from the axial views. CT scan performed using dose optimization techniques including the following automated exposure control; adjustment of mA and/or kV; use of iterative reconstruction technique. Automatic exposure control was used to reduce radiation dose. Permanent radiation dose record is archived to PACS. FINDINGS: Moderate loss of vertebral height throughout, no acute fracture or subluxation. Severe loss of disc height C5-6 and C6-7 with moderate to severe canal and foraminal stenosis. Soft tissues unremarkable. Impression: No acute abnormality. Reviewed, dictated and finalized at location A. Impression: No acute abnormality.
--- NOTE | ~2024-12-25 | CT_ITS ---
EXAMINATION: CT brain james bella, 12/25/2024 4:26 CDT HISTORY: fall, head trauma COMPARISON: No comparisons available. Technique: Axial images obtained of the brain without contrast. One or more of the following dose reduction techniques were used: automated exposure control, adjustment of the mA and/or kV according to patient size, use of iterative reconstruction technique. Findings: No acute infarct or parenchymal hemorrhage. No abnormal mass or mass effect. No midline shift. No extra-axial fluid collections. No hydrocephalus. Mastoid air cells unremarkable. Sinuses and orbits unremarkable. No acute fracture. No significant facial or scalp soft tissue swelling evident. No radiopaque foreign body is seen. Impression: 1.No acute intracranial abnormality. Reviewed, dictated and finalized at location A. Impression: 1.No acute intracranial abnormality.
[2024-12-25 03:59] VITALS: PULSE 60; RESP 18; TEMP 36.8; O2SAT 96
[2024-12-25 04:11] VITALS: BP 118/73; PULSE 60; RESP 20; O2SAT 94
--- NOTE | 2024-12-25 04:59 | ED_ITS ---
HPI - General Adult General Chief complaint: Head Injury Stated complaint: ABRASION TO FOREHEAD Time Seen by Provider: 12/25/24 04:28 History of Present Illness HPI narrative: Patient is a 69-year-old male who presents to the emergency department this morning status post a ground level fall. Patient was sleeping on a park bench and was started awake causing him to fall off the bench onto concrete ground. Does have around abrasion to the left forehead otherwise no lacerations. Edwina ent denies any loss of consciousness, denies any active neck pain, denies any blood thinner use. No additional symptoms or concerns at this time. Related Data Home Medications ?Medication ?Instructions ?Recorded ?Confirmed ?Last Taken ?Type aspirin 81 mg tablet 81 mg PO DAILY 03/06/2410/1307/13/24 History Allergies Allergy/AdvReac Type Severity Reaction Status Date / Time Sulfa (Sulfonamide Allergy Mild Rash Verified 11/06/24 09:21 Antibiotics) Review of Systems Review of Systems: All systems are reviewed and are negative unless stated otherwise in the HPI. FOR[facility]LY [facility], [facility] Past Medical History Medical History Heart failure with reduced ejection fraction (HFrEF, <= 40%) Cerebral infarction Severe chronic obstructive pulmonary disease With good response to bronchodilator noted on PFTs 10/2020 Toe fracture, left multiple toes Bronchitis Nose fracture Surgical History Surgical History History of tonsillectomy Family History Family History Mother , in her 80s Diabetes mellitus Lung cancer COPD (chronic obstructive pulmonary disease) Father , at 83 years old Acute myocardial infarction Biventricular ICD (implantable cardioverter-defibrillator) in place COPD (chronic obstructive pulmonary disease) Sibling Lung cancer Social History Social History Social History: Patient was 3 times. His last between 3 and 5 years ago cancer. He then had a girlfriend who also developed cancer and in August of 2022. 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 He briefly smoked when he was younger. He denies any significant alcohol use. He denies any illicit substance use. Code status: DNR/DNI (per patient request) The patient reports he does not have a surrogate decision maker and has no family members left. He does not have any friends he feels close enough to ask to make that type of decision. Years smoked: 5 Smoking status: Never smoker Alcohol intake: never Substance use: current Substance use type: marijuana Last use: 08/21/24 Do You Feel Safe in your Home?: Yes Lack of Transportation: No Lack of Food: Sometimes True Current Housing: I Do Not Have Housing Concerned About Future Housing: YES Difficulty Paying Gas/Electric Bills: No Difficulty Paying for Meds: No Currently Unemployed: No Education: Trade/Vocational Certificate Difficulty w/ Childcare or Family Care: No Gender identity (if verbalized by the patient): Male Spiritual care concerns: No Exam Narrative: General: Alert, awake, afebrile, in no acute distress. HEENT: PERRL, no rhinorrhea, no post nasal drip, oropharynx clear, round abrasion to left forehead measuring approximately 2 x 2 cm no active bleeding. Neck: Trachea midline, no JVD, no lymphadenopathy, no midline tenderness to palpation over the cervical spine. Cardiovascular: Regular rate and rhythm, no murmurs, rubs or gallops, no peripheral edema. Respiratory: Clear to auscultation bilaterally, no tachypnea, no wheezing, no rhonchi, no rubs, no respiratory distress. Abdomen: Soft, nontender, nondistended, no rebound, no guarding, no peritoneal signs. Musculoskeletal: No joint swelling or deformity, normal muscle tone. Skin: No rashes or petechia, no signs of infection. Psychiatric: Alert and oriented, normal behavior and judgment for situation. Neurological: Alert and oriented to person, place, and time. Follows all commands. No focal deficits, speech is clear and fluent. Course Vital Signs Vital signs: Vital Signs Temperature 98.2 F 12/25/24 03:59 Pulse Rate 60 12/25/24 03:59 Respiratory Rate 18 12/25/24 03:59 Pulse Oximetry 96 12/25/24 03:59 Oxygen Delivery Room Air 12/25/24 03:59 Temperature 98.2 F 12/25/24 03:59 Pulse Rate 60 12/25/24 04:11 Respiratory Rate 20 12/25/24 04:11 Blood Pressure 118/73 12/25/24 04:11 Pulse Oximetry 94 12/25/24 04:11 Oxygen Delivery Room Air 12/25/24 03:59 Medical Decision Making MDM Narrative Medical decision making narrative: The patient was evaluated by myself in the emergency department. History is obtained from patient who is an independent historian and physical exam was performed. External medical records were reviewed at this time. Imaging studies obtained included CT brain and C-spine without IV contrast which was independently interpreted by me revealing no acute process, which is pending final radiology interpretation. Differential diagnosis considerations include intracranial hemorrhage, fracture, dislocation. Comorbidities impacting this visit include none. I have evaluated and discussed social determinants of health with the patient that could potentially impact subsequent diagnosis and treatment plans. On repeat assessment of the patient, reevaluation revealed that the patient is doing well and is in no acute distress. Patient symptoms have improved since he arrived to our emergency department. Repeat vital signs were all reviewed and noted to be stable. Differential diagnosis and treatment plan were discussed with the patient at bedside. Patient agrees with discussion and after shared medical decision making agrees with discharge. All questions were answered to the patient's satisfaction. Patient will follow up with his PCP in 3-5 days. Patient was provided with strict return precautions and instructed to return to the emergency department if any new or worsening symptoms develop. The patient was discharged in stable condition. Vital Signs Vital Signs: Vital Signs Temperature 98.2 F 12/25/24 03:59 Pulse Rate 60 12/25/24 03:59 Respiratory Rate 18 12/25/24 03:59 Pulse Oximetry 96 12/25/24 03:59 Oxygen Delivery Room Air 12/25/24 03:59 Temperature 98.2 F 12/25/24 03:59 Pulse Rate 60 12/25/24 04:11 Respiratory Rate 20 12/25/24 04:11 Blood Pressure 118/73 12/25/24 04:11 Pulse Oximetry 94 12/25/24 04:11 Oxygen Delivery Room Air 12/25/24 03:59 Discharge Plan Discharge Clinical Impression: Fall from ground level, Head injury Patient Disposition: Home Condition: Improved Instructions: Antibiotic Form, Head Injury (ED) Additional Instructions: Please follow-up with your family doctor within the next 3-5 days. Return to the emergency department if any new or worsening symptoms develop. Patient Language: Barbadian Prescriptions: No Action albuterol sulfate 90 mcg/actuation HFA aerosol inhaler 2 puff INHALATION Q4H PRN (Reason: Shortness Of Breath Or Wheezing) Qty: 6.7 0RF aspirin 81 mg Tablet 81 mg PO DAILY Entresto 24-26 mg Tablet 1 tab PO Q12HR Qty: 60 0RF Triple Antibiotic 3.5mg-400 unit- 5,000 unit/gram Ointment 1 applic topical QAM Qty: 60 0RF spironolactone 25 mg Tablet 25 mg PO QAM Qty: 30 0RF Jardiance 10 mg Tablet 10 mg PO DAILY Qty: 30 0RF Breztri Aerosphere 160-9-4.8 mcg/actuation HFA aerosol inhaler 2 inh inhalation BID Qty: 5.9 5RF furosemide [Lasix] 40 mg tablet 40 mg PO DAILY Qty: 90 1RF carvedilol 12.5 mg tablet 12.5 mg PO Q12H Qty: 180 1RF Rx Instructions: must administer with a meal/food Follow-up/Referrals: Lashae Marcano APRN [Primary Care Provider, Family Practice] - 3 Days Time of Disposition: 05:03
--- OUTSIDE RECORDS SUMMARY | 2024-12-25 05:09 | XMS_ITS | Encounter Summary ---
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 Gender Identity Not on file Sexual Orientation Not on file documented as of this encounter Functional Status * AUDIT-C Score Answer Date of Assessment Author 0 [...] documented as of this encounter Care Teams Wax Machine Operator Relationship Specialty Start Date End Date Emre Andrade MD PCP - General Emergency Medicine 10/19/21 12/11/23 Lisa Kern PA [address] [facility] [address] [place] [address] PCP - General Family Medicine 12/12/23 08/11/24 Lashae Marcano NP [address] [place], [place] [address] [address] PCP - General Family Practice 08/28/24 [place] [id number] [address] Consulting Physician Cardiovascular Disease 07/19/23 Alissa Lewis [facility] Community Health Worker (CHW) 10/06/24 10/17/24 documented as of this encounter
--- OUTSIDE RECORDS SUMMARY | 2024-12-25 05:09 | XMS_ITS | Clinical Summary ---
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 2018. Blood 12/11/2024 3:51 AM CDT 12/11/2024 3:53 AM CDT Roberto Colorado MD LAB BLOOD ORDERABLES Final Resu lt Performing Organization Address [facility] Co de Phone Number ROSELYN[address] [employer] [place], [place] [id number] * (ABNORMAL) Troponin T high-sensitivity 6-hour (12/11/2024 12:36 AM CDT) Pathologist [facility] Trop T hs 31(H) <=22 ng/L Comment: Interpretive Data For further hscTnT resources including the diagnostic algorithm and an aid in interpretation, copy and paste this link: https://nrl.testcatalog.org/show/hsTrop Current Interpretive Data last revised 2020. Trop T hs delta 0 ng/L [facility] Trop T hs interp Insignificant [facility] Blood 12/11/2024 12:3 6 AM CDT 12/11/2024 12:43 AM CDT Kandis Villa MD LAB BLOOD ORDERABLES Final Result Performing Organization Address [facility] Co de Phone Number ROSELY[address] [place] [address] * (ABNORMAL) Sepsis Lactate w/ Reflex (12/11/2024 12:36 AM CDT) Sepsis Lactate 2.3(H) 0.7 - 2.0 mmol/L Blood 12/11/2024 12:3 6 AM CDT 12/11/2024 12:43 AM CDT Kandis Villa MD LAB BLOOD ORDERABLES Final Result Performing Organization Address [facility] Co de Phone Number [facility] [address] [place] [address] * (ABNORMAL) Troponin T high-sensitivity 4-hour (12/10/2024 11:07 PM CDT) Trop T hs 39(H) <=22 ng/L Comment: Interpretive Data For further hscTnT resources including the diagnostic algorithm and an aid in interpretation, copy and paste this link: https://nrl.testcatalog.org/show/hsTrop Current Interpretive Data last revised 2020. Trop T hs delta 8 ng/L [facility] Trop T hs interp Equivocal [facility] Blood 12/10/2024 11:0 7 PM CDT 12/10/2024 11:13 PM CDT Kandis Villa MD LAB BLOOD ORDERABLES Final Result Performing Organization Address [facility] Co de Phone Number [facility] [address] [place] [address] * US Gallbladder (12/10/2024 10:53 PM CDT) Anatomical Region Laterality Modality Abdomen N/A Ultrasound 12/10/2024 11:2 9 PM CDT Narrative 12/10/2024 11:31 PM CDT EXAM DESCRIPTION: US GALLBLADDER REASON FOR STUDY: Right upper quadrant pain, nausea, vomiting, indeterminate finding seen on CT TECHNIQUE: Ultrasound of the gallbladder was performed with grayscale imaging. COMPARISON: CT 12/10/2024 FINDINGS: GALLBLADDER: Normal wall thickening is noted measuring up to about 7 mm. No stones are identified. Carbajal's sign is not reported. No sludge is seen. No pericholecystic fluid is seen. BILIARY SYSTEM: There is no evidence of intrahepatic or extrahepatic biliary ductal dilatation. The common bile duct measures 4 mm in diameter. LIVER: Visualized portions of the liver appears mildly heterogeneous. No focal lesions are visualized. OTHER: No other significant findings. IMPRESSION: Prominent gallbladder wall thickening is noted. No stones sludge or pericholecystic fluid is seen. THIS IS AN ELECTRONICALLY VERIFIED FINAL REPORT 12/10/2024 11:31 PM - Electronically signed by Rashaun Lopez M.D. KH T: Report ID: [id number] Reading Location: [place] [address] Procedure Note Rashaun Lopez MD - 12/10/2024 EXAM DESCRIPTION: US GALLBLADDER REASON FOR STUDY: Right upper quadrant pain, nausea, vomiting,indeterminate finding seen on CT TECHNIQUE: Ultrasound of the gallbladder was performed with grayscaleimaging. COMPARISON: CT 12/10/2024 FINDINGS: GALLBLADDER: Normal wall thickening is noted measuring up toabout 7 mm. No stones are identified. Carbajal's sign is not reported. Nosludge is seen. No pericholecystic fluid is seen. BILIARY SYSTEM: There is no evidence of intrahepatic or extrahepaticbiliary ductal dilatation. The common bile duct measures 4 mm in diameter. LIVER: Visualized portions of the liver appears mildly heterogeneous. No focal lesions are visualized. OTHER: No other significant findings. IMPRESSION: Prominent gallbladder wall thickening is noted. No stones sludge or pericholecystic fluid is seen. THIS IS AN ELECTRONICALLY VERIFIED FINAL REPORT 12/10/2024 11:31 PM - Electronically signed by Rashaun Lopez M.D. KH T: Report ID: [id number] Reading Location: [place] [address] us Doreen JACINTO IMG US PROCEDURES Antonette l Result * CT Abdomen Pelvis WO Contrast (12/10/2024 9:05 PM CDT) Anatomical Region Laterality Modality Body N/A Computed Tomogra phy 12/10/2024 9:13 PM CDT Narrative 12/10/2024 9:17 PM CDT EXAM DESCRIPTION: CT ABDOMEN PELVIS WO CONTRAST REASON FOR STUDY: nausea, vomiting C/o nausea/vomiting; States he ate [employer] last night. Had nausea/vomiting. Last PM got up to use restroom. Had an episode of syncope. Did fall. Unsure of head strike. Then lay on floor to sleep. Reports at time had CP (unable to localize) w/ pain to back between the shoulder blades. No Pain at this time. Did have SOB. No URI Sx or cough. Has chronic BLE swelling (R>L) that he feels is worse today. He is on ASA. Is not on anticoagulation. PMhx that includes HTN, CHF, COPD, asthma, Depression. Best attempt, pt having difficulty holding breath TECHNIQUE: CT scan of the abdomen and pelvis performed without intravenous and without oral contrast using helical scanning technique. Reconstructed coronal and sagittal MPR images reviewed. All images stored on PACS. Automated exposure control was used as a dose optimization technique for this examination. COMPARISON: 01/07/2024 FINDINGS: The sensitivity for detection of visceral lesions is diminished without the use of intravenous contrast. LOWER CHEST: No significant pulmonary abnormalities. No effusion. Cardiomegaly is noted LIVER: Normal size. No identified cystic or solid masses. GALLBLADDER: The gallbladder is not well seen. There does appear to be some strandy fluid around the gallbladder. Cholecystitis might have this appearance. No clear evidence of stones are seen. BILE DUCTS: No intrahepatic or extrahepatic ductal dilatation. SPLEEN: Small granulomatous calcifications are again noted. No acute process is seen. PANCREAS: No identified cystic or solid masses. No significant calcifications. No adjacent inflammation or peripancreatic fluid collections. Pancreatic duct not dilated. ADRENALS: Normal. KIDNEYS/URINARY TRACT: No identified significant cystic or solid masses. No stones. No hydronephrosis or hydroureter. Urinary bladder is unremarkable. GI: No dilated bowel loops. No obvious wall thickening. Normal appendix. No significant diverticular disease. PERITONEUM: Small amount of strandy fluid is seen in the peritoneal tissues. No large collection is seen. No free air is seen. RETROPERITONEUM: No mass or adenopathy. REPRODUCTIVE: Fat containing right inguinal hernia is noted similar to previous. No bowel involvement is evident. VASCULATURE: No abdominal aortic aneurysm. MUSCULOSKELETAL: No significant abnormality. OTHER: No other abnormality. IMPRESSION: 1. The gallbladder is not well seen. There does appear to be some strandy fluid around the gallbladder. Cholecystitis might have this appearance. No clear evidence of stones are seen. Ultrasound may be helpful for further evaluation. 2. Small amount of strandy fluid is seen in the peritoneal tissues. No large collection is seen. No free air is seen. 3. Fat containing right inguinal hernia is noted similar to previous. No bowel involvement is evident. THIS IS AN ELECTRONICALLY VERIFIED FINAL REPORT 12/10/2024 9:17 PM - Electronically signed by Rashaun Lopez M.D. KH T: Report ID: [id number] [place] Location: [id number] Procedure Note Rashaun Lopez MD - 12/10/2024 EXAM DESCRIPTION: CT ABDOMEN PELVIS WO CONTRAST REASON FOR STUDY: nausea, vomiting C/o nausea/vomiting; States he ate [employer] last night. Hadnausea/vomiting. Last PM got up to use restroom. Had an episode of syncope. Did fall.Unsure of head strike. Then lay on floor to sleep. Reports at time had CP (unable to localize) w/ pain to back between the shoulder blades. No Pain at this time. Did have SOB. No URI Sx or cough. Has chronic BLE swelling (R>L)that he feels is worse today. He is on ASA. Is not on anticoagulation. PMhxthat includes HTN, CHF, COPD, asthma, Depression. Best attempt, pt having difficulty holding breath TECHNIQUE: CT scan of the abdomen and pelvis performed without intravenousand without oral contrast using helical scanning technique. Reconstructed coronal and sagittal MPR images reviewed. All images stored on PACS.Automated exposure control was used as a dose optimization technique for this examination. COMPARISON: 01/07/2024 FINDINGS: The sensitivity for detection of visceral lesions is diminished without the use of intravenous contrast. LOWER CHEST: No significant pulmonary abnormalities. No effusion. Cardiomegaly is noted LIVER: Normal size. No identified cystic or solid masses. GALLBLADDER: The gallbladder is not well seen. There does appear to besome strandy fluid around the gallbladder. Cholecystitis might have this appearance. No clear evidence of stones are seen. BILE DUCTS: No intrahepatic or extrahepatic ductal dilatation. SPLEEN: Small granulomatous calcifications are again noted. No acute process is seen. PANCREAS: No identified cystic or solid masses. No significant calcifications. No adjacent inflammation or peripancreatic fluidcollections. Pancreatic duct not dilated. ADRENALS: Normal. KIDNEYS/URINARY TRACT: No identified significant cystic or solid masses.No stones. No hydronephrosis or hydroureter. Urinary bladder isunremarkable. GI: No dilated bowel loops. No obvious wall thickening. Normalappendix. No significant diverticular disease. PERITONEUM: Small amount of strandy fluid is seen in the peritonealtissues. No large collection is seen. No free air is seen. RETROPERITONEUM: No mass or adenopathy. REPRODUCTIVE: Fat containing right inguinal hernia is noted similar to previous. No bowel involvement is evident. VASCULATURE: No abdominal aortic aneurysm. MUSCULOSKELETAL: No significant abnormality. OTHER: No other abnormality. IMPRESSION: 1. The gallbladder is not well seen. There does appear to be somestrandy fluid around the gallbladder. Cholecystitis might have this appearance. No clear evidence of stones are seen. Ultrasound may be helpful for further evaluation. 2. Small amount of strandy fluid is seen in the peritoneal tissues. Nolarge collection is seen. No free air is seen. 3. Fat containing right inguinal hernia is noted similar to previous. No bowel involvement is evident. THIS IS AN ELECTRONICALLY VERIFIED FINAL REPORT 12/10/2024 9:17 PM - Electronically signed by Rashaun Lopez M.D. T: Report ID: [id number] Reading Location: [place] [address] Kandis Villa MD IMG CT PROCEDURES Final Re sult * (ABNORMAL) Troponin T high-sensitivity 2-hour (12/10/2024 8:49 PM CDT) Trop T hs 30(H) <=22 ng/L Comment: Interpretive Data For further hscTnT resources including the diagnostic algorithm and an aid in interpretation, copy and paste this link: https://nrl.testcatalog.org/show/hsTrop Current Interpretive Data last revised 2020. Trop T hs delta -1 ng/L [facility] Trop T hs interp Insignificant [facility] Blood 12/10/2024 8:49 PM CDT 12/10/2024 8:53 PM CDT Kandis Villa MD LAB BLOOD ORDERABLES Final Result Performing Organization Address [facility] Co de Phone Number MAR[facility] [address] [place] [address] * (ABNORMAL) Sepsis Lactate w/ Reflex (12/10/2024 8:49 PM CDT) Pathologist [facility] Sepsis Lactate 2.4(H) 0.7 - 2.0 mmol/L Blood 12/10/2024 8:49 PM CDT 12/10/2024 8:53 PM CDT Kandis Villa MD LAB BLOOD ORDERABLES Final Result Performing Organization Address [facility] Co de Phone Number MARINO [address] [place] [address] * Heparin anti factor Xa activity (12/10/2024 8:49 PM CDT) [facility] Anti Factor Xa <0.10 IUnits/mL Comment: Interpretive Data Enoxaparin therapeutic range (peak): VTE treatment, Q12hr dosin.60-1.00 IUnits/mL VTE treatment, Q24hr dosin.00-2.00 IUnits/mL Q24hr dosing for renal impairment (CrCl <30 mL/min): 0.60-1.00 IUnits/mL VTE prevention: 0.10-0.40 IUnits/mL - Anti-Xa therapeutic ranges apply to blood samples drawn 4 hours after last dose (peak). - Unfractionated heparin (UFH) therapeutic range: 0.30-0.70 IUnits/mL - Direct factor Xa inhibitors (rivaroxaban, apixaban): Results must be interpreted qualitatively. No activity detected suggests little anticoagulant activity. - In severe antithrombin deficiency, anti-Xa measurement may be inaccurate. - Interpretive guidelines developed in adult populations. Interpretive guidelines for pediatric patients have not been rigorously defined. - Current interpretive data was last revised on 2018. Blood 12/10/2024 8:49 PM CDT 12/10/2024 8:53 PM CDT us Kandis Villa MD LAB BLOOD ORDERABLES Final Result [facility] [address] [facility] Department of Laboratories [place], [place] [id number] * CT Cervical Spine WO Contrast (12/10/2024 7:56 PM CDT) Anatomical Region Laterality Modality Spine N/A Computed Tomogra phy 12/10/2024 8:01 PM CDT Narrative 12/10/2024 8:07 PM CDT EXAM DESCRIPTION: CT HEAD WO CONTRAST; CT CERVICAL SPINE WO CONTRAST REASON FOR STUDY: syncope TECHNIQUE: Axial images acquired through the head and cervical spine without intravenous contrast. Images stored on PACS. Automated exposure control was used as a dose optimization technique for this examination. COMPARISON: Head and cervical spine CT 02/13/2024 Head: No acute intracranial hemorrhage. No evidence of a large vascular territory acute infarction or CT evidence of vasogenic edema. No midline shift or mass effect. The ventricles are normal in size. Brain volume appears within normal limits for patient age. White matter attenuation appears within normal limits. The calvarium is normal without acute fracture. The orbits are unremarkable. The paranasal sinuses are well aerated. The mastoid air cells are well aerated. Cervical spine: Alignment: Mild levocurvature. Straightening of the lordosis. There are degenerative changes of the craniocervical junction with normal alignment. Vertebral bodies: Normal in height without evidence of compression fracture. Bulky anterior osteophyte at C3-C4 mildly displaces the oropharynx anteriorly. Intervertebral discs: Multilevel moderate degenerative disc disease. Facet and uncovertebral joints: Severe uncovertebral arthropathy at C5-C6. Multilevel moderate facet arthropathy. Spinal canal: [id number] spinal canal stenosis at C5-C6 Neural foramen: Severe bilateral neural foraminal stenosis at C5-C6 and right C6-C7. Soft tissues: No significant prevertebral edema. Partially visualized mosaic lung attenuation. IMPRESSION: 1. No acute intracranial process. 2. No acute cervical spine fracture. THIS IS AN ELECTRONICALLY VERIFIED FINAL REPORT 12/10/2024 8:07 PM - Electronically signed by Felix Brito M.D. MM T: Report ID: [id number] [place] Location: [id number] Procedure Note Felix Brito MD - 12/10/2024 EXAM DESCRIPTION: CT HEAD WO CONTRAST; CT CERVICAL SPINE WO CONTRAST REASON FOR STUDY: syncope TECHNIQUE: Axial images acquired through the head and cervical spinewithout intravenous contrast. Images stored on PACS. Automated exposure controlwas used as a dose optimization technique for this examination. COMPARISON: Head and cervical spine CT 02/13/2024 Head: No acute intracranial hemorrhage. No evidence of a large vascular territory acute infarction or CT evidence of vasogenic edema. No midlineshift or mass effect. The ventricles are normal in size. Brain volume appears within normallimits for patient age. White matter attenuation appears within normal limits. The calvarium is normal without acute fracture. The orbits areunremarkable. The paranasal sinuses are well aerated. The mastoid air cells are well aerated. Cervical spine: Alignment: Mild levocurvature. Straightening of the lordosis. There are degenerative changes of the craniocervical junctionwith normal alignment. Vertebral bodies: Normal in height without evidence of compressionfracture. Bulky anterior osteophyte at C3-C4 mildly displaces the oropharynx anteriorly. Intervertebral discs: Multilevel moderate degenerative disc disease. Facet and uncovertebral joints: Severe uncovertebral arthropathy atC5-C6. Multilevel moderate facet arthropathy. Spinal canal: [id number] spinal canal stenosis at C5-C6 Neural foramen: Severe bilateral neural foraminal stenosis at C5-C6 andright C6-C7. Soft tissues: No significant prevertebral edema. Partially visualizedmosaic lung attenuation. IMPRESSION: 1. No acute intracranial process. 2. No acute cervical spine fracture. THIS IS AN ELECTRONICALLY VERIFIED FINAL REPORT 12/10/2024 8:07 PM - Electronically signed by Felix Brito M.D., MM T: Report ID: [id number] Reading Location: [place] [address] Kandis Villa MD IMG CT PROCEDURES Final Re sult * CT Chest WO Contrast (12/10/2024 7:56 PM CDT) Anatomical Region Laterality Modality Body N/A Computed Tomogra phy 12/10/2024 8:03 PM CDT Narrative 12/10/2024 8:07 PM CDT EXAM DESCRIPTION: CT CHEST WO CONTRAST REASON FOR STUDY: syncope, fall, CP radiating to thoracic back, r/o Fx c/o nausea, vomiting, syncope, chest pain, back pain. He has a PMhx that includes HTN, CHF, COPD, asthma, Depression. Last admitted at [place] 11/27 - 11/30 for CHF. States he ate [employer] last night. Had nausea/vomiting. Last PM got up to use restroom. Had an episode of syncope. Did fall. Unsure of head strike. Then lay on floor to sleep. Reports at time had CP (unable to localize) w/ pain to back between the shoulder blades. No Pain at this time. Did have SOB. No URI Sx or cough. Has chronic BLE swelling (R>L) that he feels is worse today. He is on ASA. Is not on anticoagulation. TECHNIQUE: CT scan of the chest performed without intravenous contrast using helical scanning technique. Reconstructed coronal and sagittal MPR images reviewed. All images stored on PACS. Automated exposure control was used as a dose optimization technique for this examination. COMPARISON: 12/06/2021 FINDINGS: The sensitivity for detection of solid visceral lesions is diminished without the use of intravenous contrast. LUNGS: No nodules or masses. No pneumonia. PLEURA: No effusion. No pneumothorax. MEDIASTINUM/ENE: No identified masses or abnormal nodes. HEART: Massive cardiomegaly is noted. This is increased considerably from previous. No pericardial effusion is seen. CORONARY ARTERY CALCIFICATION: Yes VASCULATURE: No thoracic aortic aneurysm. AXILLA: No adenopathy. CHEST WALL: No masses. No subcutaneous air. HARDWARE/LINES/TUBES: None. UPPER ABDOMEN: No significant abnormality. Patient motion hampers visualization. MUSCULOSKELETAL: No significant abnormality. OTHER: No other significant abnormality. IMPRESSION: 1. Massive cardiomegaly is noted. This is increased considerably from previous. No pericardial effusion is seen. 2. No acute abnormality is seen. THIS IS AN ELECTRONICALLY VERIFIED FINAL REPORT 12/10/2024 8:07 PM - Electronically signed by Rashuan Lopez M.D. KH T: Report ID: [id number] Reading Location: [id number] Procedure Note Rashaun Lopez MD - 12/10/2024 EXAM DESCRIPTION: CT CHEST WO CONTRAST REASON FOR STUDY: syncope, fall, CP radiating to thoracic back, r/o Fx c/o nausea, vomiting, syncope, chest pain, back pain. He has a PMhx that includes HTN, CHF, COPD, asthma, Depression. Last admitted at [place] 11/27- 11/30 for CHF. States he ate [employer] last night. Had nausea/vomiting.Last PM got up to use restroom. Had an episode of syncope. Did fall. Unsureof head strike. Then lay on floor to sleep. Reports at time had CP (unable to localize) w/ pain to back between the shoulder blades. No Pain at thistime. Did have SOB. No URI Sx or cough. Has chronic BLE swelling (R>L) that he feels is worse today. He is on ASA. Is not on anticoagulation. TECHNIQUE: CT scan of the chest performed without intravenous contrastusing helical scanning technique. Reconstructed coronal and sagittal MPR images reviewed. All images stored on PACS. Automated exposure control was usedas a dose optimization technique for this examination. COMPARISON: 12/06/2021 FINDINGS: The sensitivity for detection of solid visceral lesions is diminished without the use of intravenous contrast. LUNGS: No nodules or masses. No pneumonia. PLEURA: No effusion. No pneumothorax. MEDIASTINUM/ENE: No identified masses or abnormal nodes. HEART: Massive cardiomegaly is noted. This is increased considerablyfrom previous. No pericardial effusion is seen. CORONARY ARTERY CALCIFICATION: Yes VASCULATURE: No thoracic aortic aneurysm. AXILLA: No adenopathy. CHEST WALL: No masses. No subcutaneous air. HARDWARE/LINES/TUBES: None. UPPER ABDOMEN: No significant abnormality. Patient motion hampers visualization. MUSCULOSKELETAL: No significant abnormality. OTHER: No other significant abnormality. IMPRESSION: 1. Massive cardiomegaly is noted. This is increased considerably from previous. No pericardial effusion is seen. 2. No acute abnormality is seen. THIS IS AN ELECTRONICALLY VERIFIED FINAL REPORT 12/10/2024 8:07 PM - Electronically signed by Rashaun Lopez M.D. KH T: Report ID: [id number] Reading Location: [id number] us Kandis Villa MD IMG CT PROCEDURES Final Re sult * CT Head WO Contrast (12/10/2024 7:56 PM CDT) Anatomical Region Laterality Modality Head and Neck N/A Computed Tomogra phy 12/10/2024 8:01 PM CDT Narrative 12/10/2024 8:07 PM CDT EXAM DESCRIPTION: CT HEAD WO CONTRAST; CT CERVICAL SPINE WO CONTRAST REASON FOR STUDY: syncope TECHNIQUE: Axial images acquired through the head and cervical spine without intravenous contrast. Images stored on PACS. Automated exposure control was used as a dose optimization technique for this examination. COMPARISON: Head and cervical spine CT 02/13/2024 Head: No acute intracranial hemorrhage. No evidence of a large vascular territory acute infarction or CT evidence of vasogenic edema. No midline shift or mass effect. The ventricles are normal in size. Brain volume appears within normal limits for patient age. White matter attenuation appears within normal limits. The calvarium is normal without acute fracture. The orbits are unremarkable. The paranasal sinuses are well aerated. The mastoid air cells are well aerated. Cervical spine: Alignment: Mild levocurvature. Straightening of the lordosis. There are degenerative changes of the craniocervical junction with normal alignment. Vertebral bodies: Normal in height without evidence of compression fracture. Bulky anterior osteophyte at C3-C4 mildly displaces the oropharynx anteriorly. Intervertebral discs: Multilevel moderate degenerative disc disease. Facet and uncovertebral joints: Severe uncovertebral arthropathy at C5-C6. Multilevel moderate facet arthropathy. Spinal canal: Banw-[id number]-lbgdxqhb spinal canal stenosis at C5-C6 Neural foramen: Severe bilateral neural foraminal stenosis at C5-C6 and right C6-C7. Soft tissues: No significant prevertebral edema. Partially visualized mosaic lung attenuation. IMPRESSION: 1. No acute intracranial process. 2. No acute cervical spine fracture. THIS IS AN ELECTRONICALLY VERIFIED FINAL REPORT 12/10/2024 8:07 PM - Electronically signed by Felix Brito M.D., MM T: Report ID: [id number] Reading Location: [id number] Procedure Note Felix Brito MD - 12/10/2024 EXAM DESCRIPTION: CT HEAD WO CONTRAST; CT CERVICAL SPINE WO CONTRAST REASON FOR STUDY: syncope TECHNIQUE: Axial images acquired through the head and cervical spinewithout intravenous contrast. Images stored on PACS. Automated exposure controlwas used as a dose optimization technique for this examination. COMPARISON: Head and cervical spine CT 02/13/2024 Head: No acute intracranial hemorrhage. No evidence of a large vascular territory acute infarction or CT evidence of vasogenic edema. No midlineshift or mass effect. The ventricles are normal in size. Brain volume appears within normallimits for patient age. White matter attenuation appears within normal limits. The calvarium is normal without acute fracture. The orbits areunremarkable. The paranasal sinuses are well aerated. The mastoid air cells are well aerated. Cervical spine: Alignment: Mild levocurvature. Straightening of the lordosis. There are degenerative changes of the craniocervical junctionwith normal alignment. Vertebral bodies: Normal in height without evidence of compressionfracture. Bulky anterior osteophyte at C3-C4 mildly displaces the oropharynx anteriorly. Intervertebral discs: Multilevel moderate degenerative disc disease. Facet and uncovertebral joints: Severe uncovertebral arthropathy atC5-C6. Multilevel moderate facet arthropathy. Spinal canal: [id number]-[id number] spinal canal stenosis at C5-C6 Neural foramen: Severe bilateral neural foraminal stenosis at C5-C6 andright C6-C7. Soft tissues: No significant prevertebral edema. Partially visualizedmosaic lung attenuation. IMPRESSION: 1. No acute intracranial process. 2. No acute cervical spine fracture. THIS IS AN ELECTRONICALLY VERIFIED FINAL REPORT 12/10/2024 8:07 PM - Electronically signed by Felix Brito M.D., MM T: Report ID: [id number] Reading Location: [place] [address] Kandis Villa MD IMG CT PROCEDURES Final Re sult * (ABNORMAL) Urinalysis reflex to microscopic and culture Urine (12/10/2024 7:40 PM CDT) Color, ur Yellow Yellow Clarity, ur Clear Clear [facility] Specific gravity, ur 1.021 1.003 - 1.030 [facility] pH, urine 5.5 [facility] Comment: Interpretive Data U rine pH is affected by diet, medications, systemic acid-base disturbances, and renal tubular function. pH may affect urinary stone formation. For example, urine pH below 6.0 may help reduce the tendency for calcium phosphate stones and pH greater than 6.0 may reduce the tendency for uric acid stone formation. Source: [facility] Current Interpretive Data was last revised on 2017 Protein, ur ql 1+(A) Negative [facility] Glucose, ur ql Negative Negative [facility] Ketones, ur Negative Negative [facility] Bilirubin, ur Negative Negative [facility] Blood, ur Negative Negative [facility] Urobilinogen, ur <2.0 <2.0 mg/dL [facility] Nitrite, ur Negative Negative [facility] Leukocyte esterase, ur Negative Negative [facility] UA reflex comment Reflex to microscopic UA will be performed. [facility] Urine 12/10/2024 7:40 PM CDT 12/10/2024 7:43 PM CDT us Kandis Villa MD LAB MICROBIOLOGY - GENERAL ORDERABLES Final Result [place] [id number] [facility] Department of Laboratories [place], [place] [id number] * (ABNORMAL) Urinalysis, microscopic only (12/10/2024 7:40 PM CDT) WBC, ur 0-5 0 - 5 /HPF RBC, ur 0-2 0 - 2 /HPF [facility] Bacteria, ur Trace(A) [facility] Mucous, ur Present(A) [facility] Culture Reflex Comment Reflex conditions for urine culture (WBC >10) not met. [facility] Urine 12/10/2024 7:40 PM CDT 12/10/2024 7:43 PM CDT Kandis Villa MD LAB URINE ORDERABLES Final Result Performing Organization Address [facility] Co de Phone Number MARINO [address] [place] [address] * (ABNORMAL) Troponin T high-sensitivity series (baseline, 2hr, 4hr, 6hr) (12/10/2024 6:26 PM CDT) [facility] Trop T hs 31(H) <=22 ng/L Comment: Interpretive Data For further hscTnT resources including the diagnostic algorithm and an aid in interpretation, copy and paste this link: [email or web address].testcatalog.org/show/[email or web address] Current Interpretive Data last revised 2020. Blood 12/10/2024 6:26 PM CDT 12/10/2024 6:31 PM CDT Kandis Villa MD LAB BLOOD ORDERABLES Final Result Performing Organization Address [facility] Co de Phone Number MAR[place] [address] [place] [address] * (ABNORMAL) Sepsis Lactate w/ Reflex (12/10/2024 6:26 PM CDT) [facility] Sepsis Lactate 2.4(H) 0.7 - 2.0 mmol/L Blood 12/10/2024 6:26 PM CDT 12/10/2024 6:31 PM CDT Kandis Villa MD LAB BLOOD ORDERABLES Final Result Performing Organization Address [facility] Co de Phone Number [address] [place] [address] * (ABNORMAL) eGFR (12/10/2024 6:26 PM CDT) [facility] eGFR 52(L) >=60 mL/min/1. 73 m2 Comment: Interpretive Data [...] interpretive data was last reviewed 2021. Blood 12/10/2024 6:26 PM CDT 12/10/2024 6:31 PM CDT us Kandis Villa MD LAB BLOOD ORDERABLES Final Result [place] [id number] [facility] Department [place] [address] * Differential, auto (12/10/2024 6:26 PM CDT) Neutrophil abs 4.23 1.50 - 6.50 K/cumm Imm gran abs 0.02 0.00 - 0.10 K/cumm [facility] Lymphocyte abs 2.36 0.80 - 3.30 K/cumm [facility] Monocyte abs 0.55 0.20 - 0.80 K/cumm [facility] Eosinophil abs 0.16 0.00 - 0.50 K/cumm [facility] Basophil abs 0.10 0.00 - 0.10 K/cumm [facility] Neutrophil pct 57.0 % [facility] Comment: Interpretive Data Percent cell count reference ranges are not reported, since discordance with absolute values may lead to misinterpretation of CBC data. Current Interpretive Data was last revised on 2017. Imm gran pct 0.3 % [facility] Comment: Interpretive Data Percent cell count reference ranges are not reported, since discordance with absolute values may lead to misinterpretation of CBC data. Current Interpretive Data was last revised on 2017. Lymphocyte pct 31.8 % [facility] Comment: Interpretive Data Percent cell count reference ranges are not reported, since discordance with absolute values may lead to misinterpretation of CBC data. Current Interpretive Data was last revised on 2017. Monocyte pct 7.4 % [facility] Comment: Interpretive Data Percent cell count reference ranges are not reported, since discordance with absolute values may lead to misinterpretation of CBC data. Current Interpretive Data was last revised on 2017. Eosinophil pct 2.2 % [facility] Comment: Interpretive Data Percent cell count reference ranges are not reported, since discordance with absolute values may lead to misinterpretation of CBC data. Current Interpretive Data was last revised on 2017. Basophil pct 1.3 % [facility] Comment: Interpretive Data Percent cell count reference ranges are not reported, since discordance with absolute values may lead to misinterpretation of CBC data. Current Interpretive Data was last revised on 2017. Blood 12/10/2024 6:26 PM CDT 12/10/2024 6:31 PM CDT us Kandis Villa MD LAB BLOOD ORDERABLES Final Result [facility] [address] [facility] Department [place] [address] * (ABNORMAL) Pro B-type natriuretic peptide (12/10/2024 6:26 PM CDT) NT-proBNP 26,116(H) <=300 pg/mL Comment: Interpretive Comments: A. Dyspnea [...] Interpretive Data Last Revised Date: 2017. Blood 12/10/2024 6:26 PM CDT 12/10/2024 6:31 PM CDT us Kandis Villa MD LAB BLOOD ORDERABLES Final Result [facility] [address] [facility] Department [place] [address] * (ABNORMAL) CBC with auto differential (12/10/2024 6:26 PM CDT) WBC 7.42 3.80 - 9.90 K/cumm Hgb 12.5(L) 13.0 - 17.5 g/dL [facility] Hct 38.6(L) 38.9 - 50.3 % [facility] Plt 208 150 - 400 K/cumm [facility] MPV 10.1 9.1 - 12.3 fL [facility] RBC 3.83(L) 4.30 - 5.80 M/cumm [facility] MCV 100.8(H) 81.3 - 96.4 fL [facility] MCH 32.6 27.1 - 33.3 pg [facility] MCHC 32.4 32.3 - 35.7 g/dL [facility] RDW CV 15.8(H) 11.1 - 14.9 % [facility] RDW SD 58.1(H) 35.7 - 48.1 fL [facility] NRBC abs 0.00 0.00 - 0.01 K/cumm [facility] Blood 12/10/2024 6:26 PM CDT 12/10/2024 6:31 PM CDT Kandis Villa MD LAB BLOOD ORDERABLES Final Result Performing Organization Address [facility] de Phone Number [address] [place] [address] * aPTT (12/10/2024 6:26 PM CDT) aPTT 31 22 - 37 sec Comment: Interpretive data aPTT test has not been evaluated for monitoring heparin therapy. The anti-Xa is the preferred test. Current interpretive data was last revised on 2019. Blood 12/10/2024 6:26 PM CDT 12/10/2024 6:31 PM CDT Kandis Villa MD LAB BLOOD ORDERABLES Final Result Performing Organization Address [facility] de Phone Number [address] [address] * (ABNORMAL) Protime-INR (12/10/2024 6:26 PM CDT) PT 18.00(H) 12.00 - 14.60 sec INR 1.47(H) 0.90 - 1.20 [facility] Comment: Interpretive data Oral anticoagulant therapeutic ranges: Venous thromboembolism prophylaxis or treatment: 2.0-3.0 CARDIOLOGY Standard range: 2.0-3.0 High-intensity range: 2.5-3.5 Refer to indication-specific guidelines for appropriate target ranges for prosthetic heart valve replacement. Current interpretive data was last revised on 2019. Blood 12/10/2024 6:26 PM CDT 12/10/2024 6:31 PM CDT Kandis Villa MD LAB BLOOD ORDERABLES Final Result Performing Organization Address [facility] de Phone Number MARINO [address] [address] * (ABNORMAL) D-dimer, quantitative (12/10/2024 6:26 PM CDT) Pathologist [facility] D-Dimer 1,750(H) <=499 ng/mL FEU Comment: Interpretive data FDA approved the D-dimer, in conjunction with a low or moderate pretest probability score, to exclude venous thromboembolic events (VTE) (PE and DVT) in outpatients when the D-dimer result is < 500 ng/ml FEU. Evidence supports using an age-adjusted D-dimer cut-off for outpatients older than 50 (age x 10) to improve specificity without sacrificing sensitivity. Example: age 68, VTE cut-off 680 ng/ml FEU. References; Marissa HT et al. Brit Med J. 2013;346:f2492. Tammi et al. Annals Int Med. 2015;163:701-11. Current interpretive data was last revised on 2019. Blood 12/10/2024 6:26 PM CDT 12/10/2024 6:31 PM CDT Kandis Villa MD LAB BLOOD ORDERABLES Final Result Performing Organization Address [facility] de Phone Number [address] [address] * Phosphorus (12/10/2024 6:26 PM CDT) Pathologist [facility] Phosphorus, pl 3.1 2.3 - 4.5 mg/dL Blood 12/10/2024 6:26 PM CDT 12/10/2024 6:31 PM CDT Kandis Villa MD LAB BLOOD ORDERABLES Final Result Performing Organization Address [facility] de Phone Number [address] [place] [address] * Magnesium (12/10/2024 6:26 PM CDT) [facility] Magnesium 2.0 1.4 - 2.5 mg/dL Blood 12/10/2024 6:26 PM CDT 12/10/2024 6:31 PM CDT Kandis Villa MD LAB BLOOD ORDERABLES Final Result Performing Organization Address [facility] Co de Phone Number [address] [place] [address] * Lipase (12/10/2024 6:26 PM CDT) [facility] Lipase 15 10 - 99 Units/L Blood 12/10/2024 6:26 PM CDT 12/10/2024 6:31 PM CDT Kandis Villa MD LAB BLOOD ORDERABLES Final Result Performing Organization Address [facility] de Phone Number [address] [address] * (ABNORMAL) Comprehensive metabolic panel (12/10/2024 6:26 PM CDT) [facility] Sodium 141 135 - 145 mmol/L Potassium, pl 4.4 3.3 - 4.9 mmol/L [facility] Comment:Hemolyzed; Potassium value may be falsely elevated by as much as 1.0 mmol/L. Suggest redraw and reanalysis. Chloride 106 97 - 110 mmol/L [facility] CO2 23 22 - 32 mmol/L [facility] Anion gap 12 2 - 15 mmol/L [facility] BUN 30(H) 6 - 25 mg/dL [facility] Creatinine 1.46(H) 0.80 - 1.30 mg/dL [facility] Glucose 113 70 - 199 mg/dL [facility] Comment: Interpretive Data Fasting glucose [...] interpretive data was last revised 2022. Calcium 9.4 8.5 - 10.3 mg/dL [facility] Bilirubin, total 1.6(H) 0.1 - 1.2 mg/dL [facility] Protein, pl 6.7 6.5 - 8.5 g/dL [facility] Albumin 3.7 3.5 - 5.0 g/dL [facility] Alk phos 113 40 - 130 Units/L [facility] ALT 27 7 - 55 Units/L [facility] AST 47 10 - 50 Units/L [facility] Blood 12/10/2024 6:26 PM CDT 12/10/2024 6:31 PM CDT us Kandis Villa MD LAB BLOOD ORDERABLES Final Result [facility] [address] [facility] Department [place] [address] * XR Chest 1 Vw Portable (12/10/2024 6:25 PM CDT) Anatomical Region Laterality Modality Body, Chest N/A Computed Radiogr aphy 12/10/2024 7:07 PM CDT Narrative 12/10/2024 7:08 PM CDT EXAM DESCRIPTION: XR CHEST 1 VIEW REASON FOR STUDY: chest pain Pt BIBEMS due to c/o of weakness. Pt reports being homeless. Pt states he ate yesterday then felt nauseous and lost consciousness. Upon wakening, pt reports feeling chest pain that radiated between the right jaw and shoulder. EMS reports BG 261. VSS. No meds given. Pt endorses: weakness, SOB, chills Pt denies chest pain at this moment. States he last had CP during the night. Pt hx: CHF, bilateral swelling noted. MD to assess pt. TECHNIQUE: Single radiographic view(s) of the chest. COMPARISON: 11/27/2024 FINDINGS: LUNGS: Minor chronic lung changes are noted. No consolidation, effusion or other acute process is seen. HEART/MEDIASTINUM: Cardiac silhouette enlarged in size. This is similar to previous. Mediastinal and hilar contours appear normal. LINES/TUBES: None. BONES: No acute osseous abnormality. IMPRESSION: No acute cardiopulmonary abnormality. THIS IS AN ELECTRONICALLY VERIFIED FINAL REPORT 12/10/2024 7:08 PM - Electronically signed by Rashaun Lopez M.D. KH T: Report ID: [id number] Reading Location: [place] [address] Procedure Note Rashaun Lopez MD - 12/10/2024 EXAM DESCRIPTION: XR CHEST 1 VIEW REASON FOR STUDY: chest pain Pt BIBEMS due to c/o of weakness. Pt reports being homeless. Pt stateshe ate yesterday then felt nauseous and lost consciousness. Upon wakening, pt reports feeling chest pain that radiated between the right jaw andshoulder. EMS reports BG 261. VSS. No meds given. Pt endorses: weakness,SOB, chills Pt denies chest pain at this moment. States he last had CPduring the night. Pt hx: CHF, bilateral swelling noted. MD to assesspt. TECHNIQUE: Single radiographic view(s) of the chest. COMPARISON: 11/27/2024 FINDINGS: LUNGS: Minor chronic lung changes are noted. No consolidation, effusion or other acute process is seen. HEART/MEDIASTINUM: Cardiac silhouette enlarged in size. This is similarto previous. Mediastinal and hilar contours appear normal. LINES/TUBES: None. BONES: No acute osseous abnormality. IMPRESSION: No acute cardiopulmonary abnormality. THIS IS AN ELECTRONICALLY VERIFIED FINAL REPORT 12/10/2024 7:08 PM - Electronically signed by Rashaun Lopez M.D. KH T: Report ID: [id number] Reading Location: [place] [address] us Kandis Villa MD IMG XR PROCEDURES Final Re sult * ECG 12 lead (12/10/2024 6:04 PM CDT) Ventricular Rate EKG/Min 103 BPM [facility] Atrial Rate 103 BPM [facility] MA-Interval (MSEC) 178 ms [facility] QRS-Interval (MSEC) 108 ms [facility] QT-Interval (MSEC) 370 ms [facility] QTc 484 ms [facility] P [place] 64 degrees [facility] R [place] -18 degrees [facility] T [place] 137 degrees [facility] Diagnosis Sinus tachycardia Possible Left atrial enlargement Left ventricular hypertrophy with repolarization abnormality Abnormal ECG When compared with ECG of 27-NOV-2024 04:05, No significant change was found Confirmed by DANNY REA M.D. ([id number]) on 12/15/2024 3:00:44 PM [facility] 12/10/2024 6:04 PM CDT 12/15/2024 3:00 PM CDT us Kandis Villa MD ECG ORDERABLES Final Resu lt [facility] * eGFR (11/30/2024 5:14 AM CDT) eGFR 65 >=60 mL/min/1. 73 m2 Comment: Interpretive Data [...] reviewed 2021. Testing performed by: [facility], [address] [place] [address]., [id number] Blood 11/30/2024 5:14 AM CDT 11/30/2024 6:07 AM CDT us Balbir Vergara NP LAB BLOOD ORDERABLES Final Re sult [facility] [address] [facility] Department [place] [address] * (ABNORMAL) Differential, auto (11/30/2024 5:14 AM CDT) Neutrophil abs 2.50 1.50 - 6.50 K/cumm Comment:Testing performed by : [address] [address] Imm gran abs 0.01 0.00 - 0.10 K/cumm MARINO Comment:Testing performed by : [address] [address] Lymphocyte abs 2.43 0.80 - 3.30 K/cumm MARINO Comment:Testing performed by : [address] [address] Monocyte abs 0.55 0.20 - 0.80 K/cumm [facility]INO Comment:Testing performed by : [address] [address] Eosinophil abs 0.54(H) 0.00 - 0.50 K/cumm MARINO Comment:Testing performed by : [address] [address] Basophil abs 0.06 0.00 - 0.10 K/cumm [facility] Comment:Testing performed by : [address] [address] Neutrophil pct 41.0 % [facility] Comment: Interpretive Data Percent cell count reference ranges are not reported, since discordance with absolute values may lead to misinterpretation of CBC data. Current Interpretive Data was last revised on 2017. Testing performed by: [address] [address] Imm gran pct 0.2 % [facility] Comment: Interpretive Data Percent cell count reference ranges are not reported, since discordance with absolute values may lead to misinterpretation of CBC data. Current Interpretive Data was last revised on 2017. Testing performed by: [address] [address] Lymphocyte pct 39.9 % [facility] Comment: Interpretive Data Percent cell count reference ranges are not reported, since discordance with absolute values may lead to misinterpretation of CBC data. Current Interpretive Data was last revised on 2017. Testing performed by: [address] [address] Monocyte pct 9.0 % [facility] Comment: Interpretive Data Percent cell count reference ranges are not reported, since discordance with absolute values may lead to misinterpretation of CBC data. Current Interpretive Data was last revised on 2017. Testing performed by: [address] [address] Eosinophil pct 8.9 % [facility] Comment: Interpretive Data Percent cell count reference ranges are not reported, since discordance with absolute values may lead to misinterpretation of CBC data. Current Interpretive Data was last revised on 2017. Testing performed by: [address] [address] Basophil pct 1.0 % [facility] Comment: Interpretive Data Percent cell count reference ranges are not reported, since discordance with absolute values may lead to misinterpretation of CBC data. Current Interpretive Data was last revised on 2017. Testing performed by: [address] [address] Blood 11/30/2024 5:14 AM CDT 11/30/2024 6:11 AM CDT Balbir Vergara NP LAB BLOOD ORDERABLES Final Re sult [facility] [address] [facility] Department [place] [address] * (ABNORMAL) CBC with auto differential (11/30/2024 5:14 AM CDT) WBC 6.09 3.80 - 9.90 K/cumm Comment:Testing performed by : [address] [address] Hgb 14.5 13.0 - 17.5 g/dL MARINO Comment:Testing performed by : [address], [address] Hct 44.5 38.9 - 50.3 % MARINO Comment:Testing performed by : [address] [address] Plt 222 150 - 400 K/cumm MARINO Comment:Testing performed by : [address] [address] MPV 9.8 9.1 - 12.3 fL MARINO Comment:Testing performed by : [address], [address] RBC 4.50 4.30 - 5.80 M/cumm MARINO Comment:Testing performed by : [address] [address] MCV 98.9(H) 81.3 - 96.4 fL MARINO Comment:Testing performed by : [address] [address] MCH 32.2 27.1 - 33.3 pg MARINO Comment:Testing performed by : [address] [address] MCHC 32.6 32.3 - 35.7 g/dL MARINO Comment:Testing performed by : [address] [address] RDW CV 16.9(H) 11.1 - 14.9 % MARINO Comment:Testing performed by : [address] [address] RDW SD 60.8(H) 35.7 - 48.1 fL MARINO Comment:Testing performed by : [address] [address] NRBC abs 0.00 0.00 - 0.01 K/cumm MARINO Comment:Testing performed by : [address] [address] Blood 11/30/2024 5:14 AM CDT 11/30/2024 6:11 AM CDT us Balbir Vergara NP LAB BLOOD ORDERABLES Final Re sult MARINO [address] [facility] Department of Laboratories [place], [place] [id number] * (ABNORMAL) Basic metabolic panel (11/30/2024 5:14 AM CDT) Sodium 136 135 - 145 mmol/L Comment:Testing performed by : [address] [address] Potassium, pl 4.1 3.3 - 4.9 mmol/L MARINO Comment:Testing performed by : [address] [address] Chloride 98 97 - 110 mmol/L MARINO Comment:Testing performed by : [address] [address] CO2 27 22 - 32 mmol/L MARINO Comment:Testing performed by : [address] [address] Anion gap 11 2 - 15 mmol/L MARINO Comment:Testing performed by : [address] [address] BUN 28(H) 6 - 25 mg/dL MARINO Comment:Testing performed by : [address] [address] Creatinine 1.22 0.80 - 1.30 mg/dL MARINO Comment:Testing performed by : [address] [address] Glucose 100 70 - 199 mg/dL MARINO Comment: Interpretive [...] was last revised 2022. Testing performed by: [address] [address] Calcium 9.0 8.5 - 10.3 mg/dL [facility] Comment:Testing performed by : [address] [address] Blood 11/30/2024 5:14 AM CDT 11/30/2024 6:07 AM CDT Balbir Vergara LAB BLOOD ORDERABLES Final Re sult Performing Organization Address [facility] de Phone Number MARINO [address] [facility] [place] [address] * (ABNORMAL) eGFR (11/29/2024 10:37 AM CDT) eGFR 55(L) >=60 mL/min/1. 73 m2 Comment: Interpretive Data [...] was last reviewed 2021. Testing performed by: [address] [address] Blood 11/29/2024 10:3 7 AM CDT 11/29/2024 10:53 AM CDT Balbir Vergara LAB BLOOD ORDERABLES Final Re sult Performing Organization Address [facility] Co de Phone Number MARINO [address] [facility] Department [place] [address] * Differential, auto (11/29/2024 10:37 AM CDT) Neutrophil abs 3.42 1.50 - 6.50 K/cumm Comment:Testing performed by : [address] [address] Imm gran abs 0.02 0.00 - 0.10 K/cumm MARINO Comment:Testing performed by : [address] [address] Lymphocyte abs 1.66 0.80 - 3.30 K/cumm MARINO Comment:Testing performed by : [address] [address] Monocyte abs 0.42 0.20 - 0.80 K/cumm MARINO Comment:Testing performed by : [address] [address] Eosinophil abs 0.38 0.00 - 0.50 K/cumm MARINO Comment:Testing performed by : [address] [address] Basophil abs 0.05 0.00 - 0.10 K/cumm MARINO Comment:Testing performed by : [address] [address] Neutrophil pct 57.5 % MARINO Comment: Interpretive Data Percent cell count reference ranges are not reported, since discordance with absolute values may lead to misinterpretation of CBC data. Current Interpretive Data was last revised on 2017. Testing performed by: [address] [address] Imm gran pct 0.3 % MARINO Comment: Interpretive Data Percent cell count reference ranges are not reported, since discordance with absolute values may lead to misinterpretation of CBC data. Current Interpretive Data was last revised on 2017. Testing performed by: [address] [address] Lymphocyte pct 27.9 % MARINO Comment: Interpretive Data Percent cell count reference ranges are not reported, since discordance with absolute values may lead to misinterpretation of CBC data. Current Interpretive Data was last revised on 2017. Testing performed by: [address] [address] Monocyte pct 7.1 % MARINO Comment: Interpretive Data Percent cell count reference ranges are not reported, since discordance with absolute values may lead to misinterpretation of CBC data. Current Interpretive Data was last revised on 2017. Testing performed by: [address] [address] Eosinophil pct 6.4 % MARINO Comment: Interpretive Data Percent cell count reference ranges are not reported, since discordance with absolute values may lead to misinterpretation of CBC data. Current Interpretive Data was last revised on 2017. Testing performed by: [address] [address] Basophil pct 0.8 % MARINO Comment: Interpretive Data Percent cell count reference ranges are not reported, since discordance with absolute values may lead to misinterpretation of CBC data. Current Interpretive Data was last revised on 2017. Testing performed by: [address] [address] Blood 11/29/2024 10:3 7 AM CDT 11/29/2024 10:52 AM CDT us Balbir Vergara NP LAB BLOOD ORDERABLES Final [facility] [facility] Department [place] [address] * (ABNORMAL) CBC with auto differential (11/29/2024 10:37 AM CDT) WBC 5.95 3.80 - 9.90 K/cumm Comment:Testing performed by : [address] [address] Hgb 14.7 13.0 - 17.5 g/dL MARINO Comment:Testing performed by : [address] [address] Hct 45.8 38.9 - 50.3 % [facility] Comment:Testing performed by : [address] [address] Plt 221 150 - 400 K/cumm [facility] Comment:Testing performed by : [address] [address] MPV 9.8 9.1 - 12.3 fL [facility] Comment:Testing performed by : [address] [address] RBC 4.62 4.30 - 5.80 M/cumm [facility] Comment:Testing performed by : [address] [address] MCV 99.1(H) 81.3 - 96.4 fL MARINO Comment:Testing performed by : [address] [address] MCH 31.8 27.1 - 33.3 pg [facility] Comment:Testing performed by : [address] [address] MCHC 32.1(L) 32.3 - 35.7 g/dL MARINO Comment:Testing performed by : [address] [address] RDW CV 17.2(H) 11.1 - 14.9 % MARINO Comment:Testing performed by : [address] [address] RDW SD 61.4(H) 35.7 - 48.1 fL MARINO Comment:Testing performed by : [address] [address] NRBC abs 0.00 0.00 - 0.01 K/cumm MARINO Comment:Testing performed by : [address] [address] Blood 11/29/2024 10:3 7 AM CDT 11/29/2024 10:52 AM CDT us Balbir Vergara NP LAB BLOOD ORDERABLES Final Re sult [facility] [address] [place] [address] Department [place] [address] * (ABNORMAL) Basic metabolic panel (11/29/2024 10:37 AM CDT) Sodium 140 135 - 145 mmol/L Comment:Testing performed by : [address] [address] Potassium, pl 4.8 3.3 - 4.9 mmol/L MARINO Comment:Testing performed by : [address] [address] Chloride 100 97 - 110 mmol/L [facility] Comment:Testing performed by : [address] [address] CO2 31 22 - 32 mmol/L MARINO Comment:Testing performed by : [address] [address] Anion gap 9 2 - 15 mmol/L MARINO Comment:Testing performed by : [address] [address] BUN 29(H) 6 - 25 mg/dL [facility] Comment:Testing performed by : [address], [place]., [address] Creatinine 1.40(H) 0.80 - 1.30 mg/dL MARINO Comment:Testing performed by : [address] [address] Glucose 113 70 - 199 mg/dL [facility] Comment: Interpretive Data Fasting glucose [...] was last revised 2022. Testing performed by: [address] [address] Calcium 9.2 8.5 - 10.3 mg/dL MARINO Comment:Testing performed by : [facility], [address] [place] [address]., [address] Blood 11/29/2024 10:3 7 AM CDT 11/29/2024 10:53 AM CDT Balbir Andrewdavid LAB BLOOD ORDERABLES Final Re sult Performing Organization Address [facility] Co de Phone Number MARINO [address] [place] [address] * (ABNORMAL) eGFR (11/28/2024 4:18 AM CDT) eGFR 51(L) >=60 mL/min/1. 73 [...] reviewed 2021. Testing performed by: [facility], [address] [place] [address]., [address] Blood 11/28/2024 4:18 AM CDT 11/28/2024 5:36 AM CDT Balbir Vergara LAB BLOOD ORDERABLES Final Re sult Performing Organization Address City/[facility]/ZIP Co de Phone Number MARINO [address] [place] [address] * (ABNORMAL) Differential, auto (11/28/2024 4:18 AM CDT) Neutrophil abs 3.43 1.50 - 6.50 K/cumm Comment:Testing performed by : [address] [address] Imm gran abs 0.02 0.00 - 0.10 K/cumm MARINO Comment:Testing performed by : [address] [address] Lymphocyte abs 2.42 0.80 - 3.30 K/cumm MARINO Comment:Testing performed by : [address] [address] Monocyte abs 0.55 0.20 - 0.80 K/cumm MARINO Comment:Testing performed by : [address] [address] Eosinophil abs 0.58(H) 0.00 - 0.50 K/cumm MARINO Comment:Testing performed by : [address] [address] Basophil abs 0.07 0.00 - 0.10 K/cumm [facility] Comment:Testing performed by : [address] [address] Neutrophil pct 48.5 % [facility] Comment: Interpretive Data Percent cell count reference ranges are not reported, since discordance with absolute values may lead to misinterpretation of CBC data. Current Interpretive Data was last revised on 2017. Testing performed by: [address] [address] Imm gran pct 0.3 % [facility] Comment: Interpretive Data Percent cell count reference ranges are not reported, since discordance with absolute values may lead to misinterpretation of CBC data. Current Interpretive Data was last revised on 2017. Testing performed by: [address] [address] Lymphocyte pct 34.2 % [facility] Comment: Interpretive Data Percent cell count reference ranges are not reported, since discordance with absolute values may lead to misinterpretation of CBC data. Current Interpretive Data was last revised on 2017. Testing performed by: [address] [place] [address] Monocyte pct 7.8 % MARINO Comment: Interpretive Data Percent cell count reference ranges are not reported, since discordance with absolute values may lead to misinterpretation of CBC data. Current Interpretive Data was last revised on 2017. Testing performed by: [address] [address] Eosinophil pct 8.2 % MARINO Comment: Interpretive Data Percent cell count reference ranges are not reported, since discordance with absolute values may lead to misinterpretation of CBC data. Current Interpretive Data was last revised on 2017. Testing performed by: [address] [address] Basophil pct 1.0 % MARINO Comment: Interpretive Data Percent cell count reference ranges are not reported, since discordance with absolute values may lead to misinterpretation of CBC data. Current Interpretive Data was last revised on 2017. Testing performed by: [address] [address] Blood 11/28/2024 4:18 AM CDT 11/28/2024 5:35 AM CDT us Balbir Vergara NP LAB BLOOD ORDERABLES Final [facility] [address] [facility] Department [place] [address] * (ABNORMAL) CBC with auto differential (11/28/2024 4:18 AM CDT) WBC 7.07 3.80 - 9.90 K/cumm Comment:Testing performed by : [address] [address] Hgb 13.7 13.0 - 17.5 g/dL [facility] Comment:Testing performed by : [address] [address] Hct 42.2 38.9 - 50.3 % MARINO Comment:Testing performed by : [address] [address] Plt 194 150 - 400 K/cumm [facility] Comment:Testing performed by : [address] [address] MPV 10.0 9.1 - 12.3 fL [facility] Comment:Testing performed by : [address] [address] RBC 4.30 4.30 - 5.80 M/cumm [facility] Comment:Testing performed by : [address] [address] MCV 98.1(H) 81.3 - 96.4 fL MARINO Comment:Testing performed by : [address] [address] MCH 31.9 27.1 - 33.3 pg [facility] Comment:Testing performed by : [address] [address] MCHC 32.5 32.3 - 35.7 g/dL MARINO Comment:Testing performed by : [address], [address] RDW CV 17.5(H) 11.1 - 14.9 % MARINO Comment:Testing performed by : [address], [address] RDW SD 62.6(H) 35.7 - 48.1 fL MARINO Comment:Testing performed by : [address] [address] NRBC abs 0.00 0.00 - 0.01 K/cumm MARINO Comment:Testing performed by : [address] [address] Blood 11/28/2024 4:18 AM CDT 11/28/2024 5:35 AM CDT us Balbir Vergara NP LAB BLOOD ORDERABLES Final Re sult [facility] [address] [facility] Department [place] [address] * Magnesium (11/28/2024 4:18 AM CDT) Magnesium 1.8 1.4 - 2.5 mg/dL Comment:Testing performed by : [address] [address] Blood 11/28/2024 4:18 AM CDT 11/28/2024 5:36 AM CDT Balbir Vergara NP LAB BLOOD ORDERABLES Final Re sult [facility] [address] [facility] Department [place] [address] * (ABNORMAL) Basic metabolic panel (11/28/2024 4:18 AM CDT) Pathologist [facility] Sodium 138 135 - 145 mmol/L Comment:Testing performed by : [address] [address] Potassium, pl 4.0 3.3 - 4.9 mmol/L MARINO Comment:Testing performed by : [address] [address] Chloride 101 97 - 110 mmol/L MARINO Comment:Testing performed by : [address] [address] CO2 24 22 - 32 mmol/L MARINO Comment:Testing performed by : [address] [address] Anion gap 13 2 - 15 mmol/L MARINO Comment:Testing performed by : [address] [address] BUN 29(H) 6 - 25 mg/dL MARINO Comment:Testing performed by : [address] [address] Creatinine 1.50(H) 0.80 - 1.30 mg/dL MARINO Comment:Testing performed by : [address] [address] Glucose 85 70 - 199 mg/dL MARINO Comment: Interpretive [...] revised 2022. Testing performed by: [facility], [address] [place] [address]., [address] Calcium 9.0 8.5 - 10.3 mg/dL MARINO Comment:Testing performed by : [facility], [address] [place] [address]., [address] Blood 11/28/2024 4:18 AM CDT 11/28/2024 5:36 AM CDT us Balbir Vergara NP LAB BLOOD ORDERABLES Final [facility]ult [facility] [address] [facility] Department of Laboratories [place], [place] [id number] * US Vein Duplex Lower Extremity Bilateral Complete (11/27/2024 4:45 PM CDT) Anatomical Region Laterality Modality Vascular Bilateral Ultrasound 11/27/2024 4:09 PM CDT Narrative 11/28/2024 11:35 AM CDT Lower Extremity Venous Report Patient Name: CELINA PAK W : 1955 (69y 5m) Gender: M Study Date: 11/27/2024 04:09:49 PM Shop Mechanic: Sharmin Jay Location: [id number] Order Provider: BALBIR VERGARA Quality: Adequate Ref Provider: BALBIR VERGARA PROCEDURES: Vascular Report: A non-invasive vascular imaging study of the bilateral lower extremity veins was performed using B-mode ultrasound, color flow, and spectral Doppler. INDICATIONS: Pain in right leg, Pain in left leg, and Edema, unspecified. COMPARISONS: No change compared to prior study. The previous exam was completed on 10/06/2024. FINDINGS: Right: Negative for deep and superficial vein thrombosis in the right lower extremity. Normal compressibility and color filling, spontaneous and phasic flow, and response to distal augmentation is demonstrated in the right common femoral vein, saphenofemoral junction, proximal femoral vein, mid femoral vein, distal femoral vein, profunda vein, popliteal vein, posterior tibial veins and peroneal veins. Left: Negative for deep and superficial vein thrombosis in the left lower extremity. Normal compressibility and color filling, spontaneous and phasic flow, and response to distal augmentation is demonstrated in the left common femoral vein, saphenofemoral junction, proximal femoral vein, mid femoral vein, distal femoral vein, profunda vein, popliteal vein, posterior tibial veins and peroneal veins. CONCLUSIONS: 1. There is no evidence of deep vein thrombosis in the lower extremities bilaterally. ATTESTATION: I have reviewed and interpreted the pertinent images and measurements of this study. I attest to the conclusions in the final report that is provided above. Electronically Signed By: Rogelio Damon MD 11/28/2024 10:42:09 AM CDT Procedure Note Rogelio Damon MD - 11/28/2024 Lower Extremity Venous Report Patient Name: CELINA PAK W : 1955 (69y 5m) Gender: M Study Date: 11/27/2024 04:09:49 PM Shop Mechanic: Sharmin Jay Location: [id number] Order Provider: BALBIR VERGARA Quality: Adequate Ref Provider: BALBIR VERGARA PROCEDURES: Vascular Report: A non-invasive vascular imaging study of the bilaterallower extremity veins was performed using B-mode ultrasound, color flow, and spectralDoppler. INDICATIONS: Pain in right leg, Pain in left leg, and Edema, unspecified. COMPARISONS: No change compared to prior study. The previous exam was completed on10/06/2024. FINDINGS: Right: Negative for deep and superficial vein thrombosis in the rightlower extremity. Normal compressibility and color filling, spontaneous and phasic flow, andresponse to distal augmentation is demonstrated in the right common femoral vein,saphenofemoral junction, proximal femoral vein, mid femoral vein, distal femoral vein,profunda vein, popliteal vein, posterior tibial veins and peroneal veins. Left: Negative for deep and superficial vein thrombosis in the left lowerextremity. Normal compressibility and color filling, spontaneous and phasic flow, andresponse to distal augmentation is demonstrated in the left common femoral vein,saphenofemoral junction, proximal femoral vein, mid femoral vein, distal femoral vein,profunda vein, popliteal vein, posterior tibial veins and peroneal veins. CONCLUSIONS: 1. There is no evidence of deep vein thrombosis in the lower extremitiesbilaterally. ATTESTATION: I have reviewed and interpreted the pertinent images and measurements ofthis study. I attest to the conclusions in the final report that is provided above. Electronically Signed By: Rogelio Damon MD 11/28/2024 10:42:09 AM CDT us Balbir Vergara DEVELOPMENT ADVISOR IMG US PROCEDURES Final Resul t * Blood culture Blood (11/27/2024 2:33 PM CDT) Report Final Report: No growth Comment:Testing performed by : [facility], [address] [place]., [address] Blood 11/27/2024 2:33 PM CDT 11/27/2024 5:30 PM CDT Narrative [facility] - 12/02/2024 7:00 AM CDT From a different site than #1. Collection->Peripheral 1. Blood cultures are incubated for [...] performance characteristics have been verified by the [facility] Microbiology Laboratory. For questions about this culture, contact the Microbiology Laboratory at [phone]. Interpretive data was last revised on 24. Balbir Vergara NP LAB MICROBIOLOGY - GENERAL OR DERABLES Final Result [facility] [address] [facility] Department [place] [address] * (ABNORMAL) Troponin T high-sensitivity 6-hour (11/27/2024 11:39 AM CDT) Trop T hs 32(H) <=22 ng/L Comment: Interpretive Data For further hscTnT resources including the diagnostic algorithm and an aid in interpretation, copy and paste this link: https://nrl.testcatalog.org/show/hsTrop Current Interpretive Data last revised 2020. Testing performed by: [facility], [address] [place] [address]., [address] Trop T hs delta See Comment ng/L [facility] Comment: Inappropriate collection time to report a delta. Testing performed by: [address] [address] Trop T hs pct delta See Comment % [facility] Comment: Inappropriate collection time to report a delta. Testing performed by: [facility], [address] [place] [address], [place]., [address] Trop T hs interp See Comment [facility] Comment: Inappropriate collection time to report a delta. Testing performed by: [address] [address] Blood 11/27/2024 11:3 9 AM CDT 11/27/2024 11:45 AM CDT Darian Shelby Jr., MD LAB BLOOD ORDERABLES F inal Result MARINO [address] [facility] Department [place] [address] * Blood culture Blood (11/27/2024 11:39 AM CDT) Report Final Report: No growth Comment:Testing performed by : [facility], [address] [facility] [place]., [address] Blood 11/27/2024 11:3 9 AM CDT 11/27/2024 3:18 PM CDT Narrative [facility] - 12/01/2024 4:00 PM CDT Collection->Peripheral 1. Blood cultures are [...] performance characteristics have been verified by the [facility] Microbiology Laboratory. For questions about this culture, contact the Microbiology Laboratory at [phone]. Interpretive data was last revised on 24. Balbir Vergara NP LAB MICROBIOLOGY - GENERAL OR DERABLES Final Result Performing Organization Address [facility] Co de Phone Number MARINO [address] [facility] Department of Laboratories [place], [place] [id number] * (ABNORMAL) Troponin T high-sensitivity 2-hour (11/27/2024 6:12 AM CDT) Trop T hs 35(H) <=22 ng/L Comment: Interpretive Data For further hscTnT resources including the diagnostic algorithm and an aid in interpretation, copy and paste this link: https://nrl.testcatalog.org/show/hsTrop Current Interpretive Data last revised 2020. Testing performed by: [address] [address] Trop T hs delta -3 ng/L MARINO Comment:Testing performed by : [address] [address] Trop T hs interp Insignificant MARINO Comment:Testing performed by : [address] [address] Blood 11/27/2024 6:12 AM CDT 11/27/2024 6:15 AM CDT Darian Shelby Jr., MD LAB BLOOD ORDERABLES F inal Result MARINO [address] [facility] Department [place] [address] * XR Chest 1 Vw Portable (If patient hemodynamically UNstable or UNable to ambulate) (11/27/2024 4:34AM CDT) Anatomical Region Laterality Modality Body, Chest N/A Computed Radiogr aphy 11/27/2024 4:50 AM CDT Narrative 11/27/2024 4:53 AM CDT EXAM DESCRIPTION: XR CHEST 1 VIEW REASON FOR STUDY: Shortness of breath SOB x 2 weeks -worse with riding bike. Swelling and redness with open sores to left lower leg.Pt to be homeless at this time TECHNIQUE: Portable upright AP view of the chest. COMPARISON: 10/06/2024 FINDINGS: LUNGS AND PLEURA: No focal opacity, large effusion, or pneumothorax identified. HEART/MEDIASTINUM: Trachea midline. Cardiac silhouette normal in size. Mediastinal contours appear normal. BONES: Severe cardiomegaly. CHEST WALL: Unremarkable. UPPER ABDOMEN: Unremarkable. IMPRESSION: No acute abnormality identified. THIS IS AN ELECTRONICALLY VERIFIED FINAL REPORT 11/27/2024 4:53 AM - Electronically signed by Bronson Aleman M.D. AR: [place] Report ID: [id number] [place] Location: [place] [address] Procedure Note Bronson Aleman MD - 11/27/2024 EXAM DESCRIPTION: XR CHEST 1 VIEW REASON FOR STUDY: Shortness of breath SOB x 2 weeks -worse with riding bike. Swelling and redness with opensores to left lower leg.Pt to be homeless at this time TECHNIQUE: Portable upright AP view of the chest. COMPARISON: 10/06/2024 FINDINGS: LUNGS AND PLEURA: No focal opacity, large effusion, orpneumothorax identified. HEART/MEDIASTINUM: Trachea midline. Cardiac silhouette normal in size. Mediastinal contours appear normal. BONES: Severe cardiomegaly. CHEST WALL: Unremarkable. UPPER ABDOMEN: Unremarkable. IMPRESSION: No acute abnormality identified. THIS IS AN ELECTRONICALLY VERIFIED FINAL REPORT 11/27/2024 4:53 AM - Electronically signed by Bronson Aleman M.D. AR: [place] Report ID: [id number] [place] Location: [id number] us Darian Shelby Jr., MD IMG XR PROCEDURES Antonette l Result * (ABNORMAL) Troponin T high-sensitivity series (baseline, 2hr, 4hr, 6hr) (11/27/2024 4:12 AM CDT) Trop T hs 38(H) <=22 ng/L Comment: Interpretive Data For further hscTnT resources including the diagnostic algorithm and an aid in interpretation, copy and paste this link: https://nrl.testcatalog.org/show/hsTrop Current Interpretive Data last revised 2020. Testing performed by: [facility], [address] [place] [address]., [address] Blood 11/27/2024 4:12 AM CDT 11/27/2024 4:16 AM CDT us Darian Shelby Jr., MD LAB BLOOD ORDERABLES F inal Result CERNER [address] [facility] Department [place] [address] * (ABNORMAL) eGFR (11/27/2024 4:12 AM CDT) eGFR 45(L) >=60 mL/min/1. 73 m2 Comment: Interpretive Data [...] was last reviewed 2021. Testing performed by: [address] [address] Blood 11/27/2024 4:12 AM CDT 11/27/2024 4:16 AM CDT us Darian Shelby Jr., MD LAB BLOOD ORDERABLES F inal Result MARINO [address] Department [place] [address] * Differential, auto (11/27/2024 4:12 AM CDT) Neutrophil abs 3.37 1.50 - 6.50 K/cumm Comment:Testing performed by : [address] [address] Imm gran abs 0.02 0.00 - 0.10 K/cumm MARNIO Comment:Testing performed by : [address] [address] Lymphocyte abs 2.41 0.80 - 3.30 K/cumm MARINO Comment:Testing performed by : [address] [address] Monocyte abs 0.75 0.20 - 0.80 K/cumm MARINO Comment:Testing performed by : [address] [address] Eosinophil abs 0.28 0.00 - 0.50 K/cumm MARINO Comment:Testing performed by : [address] [address] Basophil abs 0.08 0.00 - 0.10 K/cumm MARINO Comment:Testing performed by : [address] [address] Neutrophil pct 48.6 % [facility] Comment: Interpretive Data Percent cell count reference ranges are not reported, since discordance with absolute values may lead to misinterpretation of CBC data. Current Interpretive Data was last revised on 2017. Testing performed by: [address] [address] Imm gran pct 0.3 % [facility] Comment: Interpretive Data Percent cell count reference ranges are not reported, since discordance with absolute values may lead to misinterpretation of CBC data. Current Interpretive Data was last revised on 2017. Testing performed by: [address] [address] Lymphocyte pct 34.9 % [facility] Comment: Interpretive Data Percent cell count reference ranges are not reported, since discordance with absolute values may lead to misinterpretation of CBC data. Current Interpretive Data was last revised on 2017. Testing performed by: [address] [address] Monocyte pct 10.9 % [facility] Comment: Interpretive Data Percent cell count reference ranges are not reported, since discordance with absolute values may lead to misinterpretation of CBC data. Current Interpretive Data was last revised on 2017. Testing performed by: [address] [address] Eosinophil pct 4.1 % [facility] Comment: Interpretive Data Percent cell count reference ranges are not reported, since discordance with absolute values may lead to misinterpretation of CBC data. Current Interpretive Data was last revised on 2017. Testing performed by: [address] [address] Basophil pct 1.2 % [facility] Comment: Interpretive Data Percent cell count reference ranges are not reported, since discordance with absolute values may lead to misinterpretation of CBC data. Current Interpretive Data was last revised on 2017. Testing performed by: [address] [address] Blood 11/27/2024 4:12 AM CDT 11/27/2024 4:16 AM CDT Darian Shelby Jr., MD LAB BLOOD ORDERABLES F inal Result ROSELYNFWX [address] [facility] Department [place] [address] * (ABNORMAL) Pro B-type natriuretic peptide (11/27/2024 4:12 AM CDT) NT-proBNP 18,126(H) <=300 pg/mL Comment: Interpretive Comments: A. Dyspnea [...] LAGUNA et.al. Eur Heart J. 2006:27:330-337. 2. Teteee RW, Magalie FAGAN. J. AM Alejandro Cardiol: Cardiovasc Imag. 2009;2: 216- 225. Interpretive Data Last Revised Date: 2017. Testing performed by: [facility], [address] [place] [address]., [address] Blood 11/27/2024 4:12 AM CDT 11/27/2024 4:16 AM CDT us Darian Shelby Jr., MD LAB BLOOD ORDERABLES F inal Result [facility] [address] [facility] Department [place] [address] * (ABNORMAL) CBC with auto differential (11/27/2024 4:12 AM CDT) WBC 6.91 3.80 - 9.90 K/cumm Comment:Testing performed by : [address] [address] Hgb 13.0 13.0 - 17.5 g/dL MARINO Comment:Testing performed by : [address] [address] Hct 40.2 38.9 - 50.3 % MARINO Comment:Testing performed by : [address] [address] Plt 213 150 - 400 K/cumm MARINO Comment:Testing performed by : [address] [address] MPV 9.7 9.1 - 12.3 fL MARINO Comment:Testing performed by : [address] [address] RBC 4.10(L) 4.30 - 5.80 M/cumm MARINO Comment:Testing performed by : [address] [address] MCV 98.0(H) 81.3 - 96.4 fL MARINO Comment:Testing performed by : [address] [address] MCH 31.7 27.1 - 33.3 pg MARINO Comment:Testing performed by : [address] [address] MCHC 32.3 32.3 - 35.7 g/dL MARINO Comment:Testing performed by : [address] [address] RDW CV 17.5(H) 11.1 - 14.9 % MARINO Comment:Testing performed by : [address] [address] RDW SD 62.7(H) 35.7 - 48.1 fL MARINO OLEARY Comment:Testing performed by : [address] [address] NRBC abs 0.00 0.00 - 0.01 K/cumm MARINO OLEARY Comment:Testing performed by : [address] [address] Blood 11/27/2024 4:12 AM CDT 11/27/2024 4:16 AM CDT us Darian Shelby Jr., MD LAB BLOOD ORDERABLES F inal Result MARINO [facility] Department [place] [address] * (ABNORMAL) Comprehensive metabolic panel (11/27/2024 4:12 AM CDT) Sodium 139 135 - 145 mmol/L Comment:Testing performed by : [address] [address] Potassium, pl 4.4 3.3 - 4.9 mmol/L MARINO Comment:Testing performed by : [address] [address] Chloride 105 97 - 110 mmol/L MARINO Comment:Testing performed by : [address] [address] CO2 21(L) 22 - 32 mmol/L MARINO Comment:Testing performed by : [address] [address] Anion gap 13 2 - 15 mmol/L MARINO Comment:Testing performed by : [address] [address] BUN 31(H) 6 - 25 mg/dL MARINO OLEARY Comment:Testing performed by : [address] [address] Creatinine 1.65(H) 0.80 - 1.30 mg/dL MAR[facility] OLEARY Comment:Testing performed by : [address] [address] Glucose 97 70 - 199 mg/dL MARINO OLEARY Comment: [...] was last revised 2022. Testing performed by: [address] [address] Calcium 9.5 8.5 - 10.3 mg/dL MARINO Comment:Testing performed by : [address] [address] Bilirubin, total 1.4(H) 0.1 - 1.2 mg/dL MARINO Comment:Testing performed by : [address] [address] Protein, pl 7.0 6.5 - 8.5 g/dL MARINO Comment:Testing performed by : [address] [address] Albumin 3.8 3.5 - 5.0 g/dL MARINO Comment:Testing performed by : [address] [address] Alk phos 102 40 - 130 Units/L MARINO Comment:Testing performed by : [address] [address] ALT 38 7 - 55 Units/L MARINO Comment:Testing performed by : [address] [address] AST 41 10 - 50 Units/L MARINO Comment:Testing performed by : [address] [address] Blood 11/27/2024 4:12 AM CDT 11/27/2024 4:16 AM CDT us Darian Shelby Jr., MD LAB BLOOD ORDERABLES F inal Result Performing Organization Address [facility] de Phone Number MARINO [address] [facility] Department [place] [address] * ECG 12 lead (11/27/2024 4:05 AM CDT) Pathologist [facility] Ventricular Rate EKG/Min 92 BPM [facility] Atrial Rate 92 BPM [facility] MA-Interval (MSEC) 182 ms [facility] QRS-Interval (MSEC) 120 ms [facility] QT-Interval (MSEC) 396 ms [facility] QTc 489 ms [facility] P [place] 66 degrees [facility] R [place] -14 degrees [facility] T [place] 148 degrees [facility] Diagnosis Normal sinus rhythm Biatrial enlargement Left ventricular hypertrophy with QRS widening and repolarization abnormality Abnormal ECG When compared with ECG of 06-OCT-2024 02:42, No significant change was found Confirmed by CAITLIN BOATENG M.D. ([id number]) on 11/29/2024 2:05:10 PM [facility] 11/27/2024 4:05 AM CDT 11/29/2024 2:05 PM CDT Darian Shelby Jr., MD ECG ORDERABLES Final Result Performing Organization Address [facility] de Phone Number [facility] * Cardiology Document Scan (11/07/2024 3:04 PM CDT) Anatomical Region Laterality Modality Other Eliezer Dias MD CV CARDIAC SERVICES PROCEDURES F inal Result * Cardiology Document Scan (11/06/2024 3:02 PM CDT) Anatomical Region Laterality Modality Other us Eliezer Dias MD CV CARDIAC SERVICES PROCEDURES F inal Result * (ABNORMAL) eGFR (10/11/2024 5:26 AM CDT) Pathologist [facility] eGFR 50(L) >=60 mL/min/1. 73 m2 Comment: [...] was last reviewed 2021. Testing performed by: [address] [address] Blood 10/11/2024 5:26 AM CDT 10/11/2024 5:31 AM CDT us Danny Briseno MD LAB BLOOD ORDERABLES Final Res ult MARINO [address] [facility] Department [place] [address] * (ABNORMAL) CBC without differential (10/11/2024 5:26 AM CDT) WBC 8.27 3.80 - 9.90 K/cumm Comment:Testing performed by : [address] [address] Hgb 14.9 13.0 - 17.5 g/dL MARINO OLEARY Comment:Testing performed by : [address] [address] Hct 46.4 38.9 - 50.3 % MARINO OLEARY Comment:Testing performed by : [address] [address]846 Plt 210 150 - 400 K/cumm MARINO LOEARY Comment:Testing performed by : [address] [address] MPV 10.1 9.1 - 12.3 fL MARINO OLEARY Comment:Testing performed by : [address] [address] RBC 4.82 4.30 - 5.80 M/cumm MARINO OLEARY Comment:Testing performed by : [address] [address] MCV 96.3 81.3 - 96.4 fL MAR[facility] OLEARY Comment:Testing performed by : [address] [address] MCH 30.9 27.1 - 33.3 pg MARINO OLEARY Comment:Testing performed by : [address] [address] MCHC 32.1(L) 32.3 - 35.7 g/dL MARINO OLEARY Comment:Testing performed by : [address] [address] RDW CV 15.8(H) 11.1 - 14.9 % MARINO Comment:Testing performed by : [address], [address] RDW SD 55.4(H) 35.7 - 48.1 fL MARINO Comment:Testing performed by : [address] [address] NRBC abs 0.00 0.00 - 0.01 K/cumm MARINO Comment:Testing performed by : [address] [address] Blood 10/11/2024 5:26 AM CDT 10/11/2024 5:31 AM CDT us Danny Briseno MD LAB BLOOD ORDERABLES Final Res ult MARINO [address] [facility] Department [place] [address] * (ABNORMAL) Basic metabolic panel (10/11/2024 5:26 AM CDT) Pathologist [facility] Sodium 137 135 - 145 mmol/L Comment:Testing performed by : [address] [address] Potassium, pl 4.8 3.3 - 4.9 mmol/L MARINO Comment:Testing performed by : [facility], [address] [place] [address]., [address] Chloride 101 97 - 110 mmol/L MARINO Comment:Testing performed by : [address] [address] CO2 24 22 - 32 mmol/L MARINO Comment:Testing performed by : [address] [address] Anion gap 12 2 - 15 mmol/L MARINO Comment:Testing performed by : [address] [address] BUN 43(H) 6 - 25 mg/dL [facility] Comment:Testing performed by : [address] [address] Creatinine 1.53(H) 0.80 - 1.30 mg/dL MARINO Comment:Testing performed by : [address] [address] Glucose 88 70 - 199 mg/dL [facility] Comment: Interpretive Data Fasting glucose [...] was last revised 2022. Testing performed by: [address] [address] Calcium 9.7 8.5 - 10.3 mg/dL [facility] Comment:Testing performed by : [address] [address] Blood 10/11/2024 5:26 AM CDT 10/11/2024 5:31 AM CDT us Danny Briseno MD LAB BLOOD ORDERABLES Final Res ult [place] [address] [facility] Department [place] [address] * (ABNORMAL) eGFR (10/10/2024 7:12 AM CDT) Pathologist [facility] eGFR 51(L) >=60 mL/min/1. 73 m2 Comment: [...] was last reviewed 2021. Testing performed by: [address] [address] Blood 10/10/2024 7:12 AM CDT 10/10/2024 7:45 AM CDT us Danny Briseno MD LAB BLOOD ORDERABLES Final Res ult Performing Organization Address [facility] Co de Phone Number [place] [id number] [facility] Department [place] [address] * (ABNORMAL) CBC without differential (10/10/2024 7:12 AM CDT) [facility] WBC 8.68 3.80 - 9.90 K/cumm Comment:Testing performed by : [address] [address] Hgb 14.6 13.0 - 17.5 g/dL MARINO Comment:Testing performed by : [address] [place]., [address] Hct 44.7 38.9 - 50.3 % MARINO Comment:Testing performed by : [address], [address] Plt 232 150 - 400 K/cumm MARINO Comment:Testing performed by : [address] [address] MPV 10.3 9.1 - 12.3 fL MARINO Comment:Testing performed by : [address], [address] RBC 4.73 4.30 - 5.80 M/cumm MARINO Comment:Testing performed by : [address], [address] MCV 94.5 81.3 - 96.4 fL MARINO Comment:Testing performed by : [address], [address] MCH 30.9 27.1 - 33.3 pg MARINO Comment:Testing performed by : [address], [address] MCHC 32.7 32.3 - 35.7 g/dL MARINO Comment:Testing performed by : [address], [address] RDW CV 15.6(H) 11.1 - 14.9 % MARINO Comment:Testing performed by : [address], [address] RDW SD 53.5(H) 35.7 - 48.1 fL MARINO Comment:Testing performed by : [address], [address] NRBC abs 0.00 0.00 - 0.01 K/cumm MARINO Comment:Testing performed by : [address], [address] Blood 10/10/2024 7:12 AM CDT 10/10/2024 7:45 AM CDT us Danny Briseno MD LAB BLOOD ORDERABLES Final Res ult MARINO [address] [place] [address] * Magnesium (10/10/2024 7:12 AM CDT) [facility] Magnesium 2.4 1.4 - 2.5 mg/dL Comment:Testing performed by : [address] [address] Blood 10/10/2024 7:12 AM CDT 10/10/2024 7:45 AM CDT Medardo Kendall MD LAB BLOOD ORDERABLE S Final Result Performing Organization Address [facility] de Phone Number MARINO [address] [place] [address] * (ABNORMAL) Basic metabolic panel (10/10/2024 7:12 AM CDT) [facility] Sodium 138 135 - 145 mmol/L Comment:Testing performed by : [address] [address] Potassium, pl 5.1(H) 3.3 - 4.9 mmol/L MARINO Comment:Testing performed by : [address] [address] Chloride 100 97 - 110 mmol/L MARINO Comment:Testing performed by : [address] [address]678 CO2 25 22 - 32 mmol/L MARINO Comment:Testing performed by : [address] [address] Anion gap 13 2 - 15 mmol/L MARINO Comment:Testing performed by : [address] [address] BUN 38(H) 6 - 25 mg/dL MARINO Comment:Testing performed by : [address] [address] Creatinine 1.49(H) 0.80 - 1.30 mg/dL MARINO Comment:Testing performed by : [address], [address] Glucose 83 70 - 199 mg/dL MARINO OLEARY Comment: [...] revised 2022. Testing performed by: [facility], [address] [place] [address]., [address] Calcium 9.8 8.5 - 10.3 mg/dL MARINO Comment:Testing performed by : [facility], [address] [place] [address]., [address] Blood 10/10/2024 7:12 AM CDT 10/10/2024 7:45 AM CDT us Danny Briseno MD LAB BLOOD ORDERABLES Final Res ult ROSELYNKYLAH [address] [facility] Department [place] [address] * eGFR (10/09/2024 11:53 AM [...] was last reviewed 2021. Testing performed by: [address] [address] Blood 10/09/2024 11:5 3 AM CDT 10/09/2024 11:57 AM CDT us Danny Briseno MD LAB BLOOD ORDERABLES Final Res [facility] Department [place] [address] * (ABNORMAL) CBC without differential (10/09/2024 11:53 AM CDT) WBC 7.74 3.80 - 9.90 K/cumm Comment:Testing performed by : [address] [address] Hgb 14.6 13.0 - 17.5 g/dL MARINO Comment:Testing performed by : [address] [address] Hct 44.9 38.9 - 50.3 % MARINO Comment:Testing performed by : [address] [address]647 Plt 196 150 - 400 K/cumm MARINO Comment:Testing performed by : [address] [address] MPV 9.8 9.1 - 12.3 fL MARINO Comment:Testing performed by : [address] [address] RBC 4.74 4.30 - 5.80 M/cumm MARNIO Comment:Testing performed by : [address] [address] MCV 94.7 81.3 - 96.4 fL MARINO Comment:Testing performed by : [address] [address] MCH 30.8 27.1 - 33.3 pg MARINO OLEARY Comment:Testing performed by : [address] [address]87 MCHC 32.5 32.3 - 35.7 g/dL MAR[facility] OLEARY Comment:Testing performed by : [address] [address] RDW CV 15.5(H) 11.1 - 14.9 % MAR[facility] OLEARY Comment:Testing performed by : [address] [address]91 RDW SD 53.1(H) 35.7 - 48.1 fL [facility] OLEARY Comment:Testing performed by : [address] [address] NRBC abs 0.00 0.00 - 0.01 K/cumm MARINO OLEARY Comment:Testing performed by : [address] [address] Blood 10/09/2024 11:5 3 AM CDT 10/09/2024 11:57 AM CDT us Danny Briseno MD LAB BLOOD ORDERABLES Final Res ult MARINO [facility] Department [place] [address] * (ABNORMAL) Basic metabolic panel (10/09/2024 11:53 AM CDT) Sodium 135 135 - 145 mmol/L Comment:Testing performed by : [address] [address] Potassium, pl 4.8 3.3 - 4.9 mmol/L MARINO OLEARY Comment:Testing performed by : [address] [address] Chloride 100 97 - 110 mmol/L MARINO OLEARY Comment:Testing performed by : [address] [address]798 CO2 25 22 - 32 mmol/L MARINO OLEARY Comment:Testing performed by : [address] [address] Anion gap 10 2 - 15 mmol/L MARINO OLEARY Comment:Testing performed by : [address] [address] BUN 31(H) 6 - 25 mg/dL MARINO Comment:Testing performed by : [address] [address] Creatinine 1.21 0.80 - 1.30 mg/dL MARINO Comment:Testing performed by : [address] [address] Glucose 132 70 - 199 mg/dL MARINO [...] was last revised 2022. Testing performed by: [address] [address] Calcium 9.7 8.5 - 10.3 mg/dL MARINO Comment:Testing performed by : [address] [address] Blood 10/09/2024 11:5 3 AM CDT 10/09/2024 11:57 AM CDT us Danny Briseno MD LAB BLOOD ORDERABLES Final Res ult MARINO [address] [facility] [place] [address] * eGFR (10/08/2024 4:39 AM CDT) eGFR [...] was last reviewed 2021. Testing performed by: [address] [address] Blood 10/08/2024 4:39 AM CDT 10/08/2024 5:28 AM CDT us Danny Briseno MD LAB BLOOD ORDERABLES Final Res ult MARINO [address] [facility] Department of Laboratories [place], [place] [id number] * (ABNORMAL) CBC without differential (10/08/2024 4:39 AM CDT) WBC 7.77 3.80 - 9.90 K/cumm Comment:Testing performed by : [address] [address] Hgb 14.0 13.0 - 17.5 g/dL MARINO OLEARY Comment:Testing performed by : [address] [address] Hct 43.5 38.9 - 50.3 % MARINO OLEARY Comment:Testing performed by : [address] [address]98 Plt 206 150 - 400 K/cumm MARINO OLEARY Comment:Testing performed by : [address] [address] MPV 10.0 9.1 - 12.3 fL MARINO OLEARY Comment:Testing performed by : [address] [address] RBC 4.57 4.30 - 5.80 M/cumm MARINO Comment:Testing performed by : [address] [address]97 MCV 95.2 81.3 - 96.4 fL MARINO Comment:Testing performed by : [address] [address] MCH 30.6 27.1 - 33.3 pg MARINO Comment:Testing performed by : [address] [address] MCHC 32.2(L) 32.3 - 35.7 g/dL MARINO Comment:Testing performed by : [address] [address] RDW CV 15.4(H) 11.1 - 14.9 % MARINO Comment:Testing performed by : [address] [address]498 RDW SD 53.7(H) 35.7 - 48.1 fL MARINO Comment:Testing performed by : [address] [address] NRBC abs 0.00 0.00 - 0.01 K/cumm MARINO Comment:Testing performed by : [address] [address] Blood 10/08/2024 4:39 AM CDT 10/08/2024 5:30 AM CDT us Danny Briseno MD LAB BLOOD ORDERABLES Final Res ult MARINO [address] [facility] Department of Laboratories [place], [place] [id number] * Magnesium (10/08/2024 4:39 AM CDT) Magnesium 2.3 1.4 - 2.5 mg/dL Comment:Testing performed by : [address] [address] Blood 10/08/2024 4:39 AM CDT 10/08/2024 5:28 AM CDT us Medardo Kendall MD LAB BLOOD ORDERABLE S Final Result MARINO [address] [facility] Department [place] [address] * Basic metabolic panel (10/08/2024 4:39 AM CDT) Sodium 135 135 - 145 mmol/L Comment:Testing performed by : [address] [address] Potassium, pl 4.6 3.3 - 4.9 mmol/L MARINO Comment:Testing performed by : [address] [address] Chloride 100 97 - 110 mmol/L AMRINO Comment:Testing performed by : [address] [address]181 CO2 24 22 - 32 mmol/L MARINO Comment:Testing performed by : [address] [address] Anion gap 11 2 - 15 mmol/L MARINO Comment:Testing performed by : [address] [address] BUN 23 6 - 25 mg/dL MARINO Comment:Testing performed by : [address] [address] Creatinine 1.15 0.80 - 1.30 mg/dL MARINO Comment:Testing performed by : [address] [address] Glucose 103 70 - 199 mg/dL MARINO [...] revised 2022. Testing performed by: [facility], [address] [place] [address]., [address] Calcium 9.5 8.5 - 10.3 mg/dL MARINO OLEARY Comment:Testing performed by : [facility], [address] [place] [address]., [address] Blood 10/08/2024 4:39 AM CDT 10/08/2024 5:28 AM CDT us Danny Briseno MD LAB BLOOD ORDERABLES Final Res ult Performing Organization Address [facility] de Phone Number MARINO [address] [facility] [place] [address] * eGFR (10/07/2024 4:18 AM CDT) eGFR [...] reviewed 2021. Testing performed by: [facility], [address] [place] [address]., [address] Blood 10/07/2024 4:18 AM CDT 10/07/2024 4:30 AM CDT us Danny Briseno MD LAB BLOOD ORDERABLES Final Res ult MARINO [address] [facility] [place] [address] * (ABNORMAL) CBC without differential (10/07/2024 4:18 AM CDT) WBC 6.86 3.80 - 9.90 K/cumm Comment:Testing performed by : [address] [address] Hgb 13.5 13.0 - 17.5 g/dL MARINO Comment:Testing performed by : [address] [address]47 Hct 42.4 38.9 - 50.3 % MARINO Comment:Testing performed by : [address] [address]345 Plt 168 150 - 400 K/cumm MARINO Comment:Testing performed by : [address] [address] MPV 9.4 9.1 - 12.3 fL MARINO Comment:Testing performed by : [address] [address] RBC 4.38 4.30 - 5.80 M/cumm MARINO Comment:Testing performed by : [address] [address] MCV 96.8(H) 81.3 - 96.4 fL MARINO Comment:Testing performed by : [address] [address] MCH 30.8 27.1 - 33.3 pg MARINO Comment:Testing performed by : [address] [address] MCHC 31.8(L) 32.3 - 35.7 g/dL MARINO Comment:Testing performed by : [address] [address] RDW CV 15.3(H) 11.1 - 14.9 % MARINO Comment:Testing performed by : [address], [address] RDW SD 55.0(H) 35.7 - 48.1 fL MARINO Comment:Testing performed by : [address] [address] NRBC abs 0.00 0.00 - 0.01 K/cumm MARINO Comment:Testing performed by : [address] [address] Blood 10/07/2024 4:18 AM CDT 10/07/2024 4:30 AM CDT us Danny Briseno MD LAB BLOOD ORDERABLES Final Res ult Performing Organization Address [facility] Co de Phone Number [address] [address] * Creatine kinase (CK), total (10/07/2024 4:18 AM CDT) CK 170 40 - 300 Units/L Comment:Testing performed by : [address] [address] Blood 10/07/2024 4:18 AM CDT 10/07/2024 4:30 AM CDT us Medardo Kendall MD LAB BLOOD ORDERABLE S Final Result Performing Organization Address [facility] Co de Phone Number [address] [address] * (ABNORMAL) Lipid panel (10/07/2024 4:18 AM [...] last revised on 2017. Testing performed by: [address] [address] Triglycerides 57 <=149 mg/dL MARINO Comment: Interpretive [...] last revised on 2017. Testing performed by: [address] [address] HDL 31(L) >=40 mg/dL MARINO Comment: Interpretive [...] last revised on 2017. Testing performed by: [address] [address] LDL, calculated 64 <=129 mg/dL MARINO Comment: Interpretive Data Ages < or = 19 years Acceptable: <110 mg/dL Borderline high: 110-129 mg/dL High: >or= 130 mg/dL Ages > or = 20 years Optimal: <100 mg/dL Near optimal: 100-129 mg/dL Borderline high: 130-159 mg/dL High: >160 mg/dL Calculated using the Corado LDL-C estimating equation. This equation was implemented [...] last revised on 2023. Testing performed by: [address] [address] Non-HDL Cholesterol 77 mg/dL MARINO Comment: Interpretive Data Ages < [...] last revised on 2017. Testing performed by: [address] [address] Chol/HDL ratio 3 MARINO Comment:Testing performed by : [address] [address] Blood 10/07/2024 4:18 AM CDT 10/07/2024 4:30 AM CDT Macrina Marc NP LAB BLOOD ORDERABLES Final Result MARINO [address] [facility] [place] [address] * Basic metabolic panel (10/07/2024 4:18 AM CDT) [facility] Signature Sodium 138 135 - 145 mmol/L Comment:Testing performed by : [address] [address] Potassium, pl 3.8 3.3 - 4.9 mmol/L MARINO OLEARY Comment:Testing performed by : [address] [address] Chloride 101 97 - 110 mmol/L MARINO Comment:Testing performed by : [address] [address] CO2 28 22 - 32 mmol/L MARINO Comment:Testing performed by : [address] [address] Anion gap 9 2 - 15 mmol/L MARINO Comment:Testing performed by : [address] [address] BUN 22 6 - 25 mg/dL MARINO Comment:Testing performed by : [address] [address] Creatinine 1.21 0.80 - 1.30 mg/dL MARINO Comment:Testing performed by : [address] [address] Glucose 105 70 - 199 mg/dL MARINO [...] was last revised 2022. Testing performed by: [address] [address] Calcium 9.2 8.5 - 10.3 mg/dL MARINO Comment:Testing performed by : [address] [address] Blood 10/07/2024 4:18 AM CDT 10/07/2024 4:30 AM CDT us Danny Briseno MD LAB BLOOD ORDERABLES Final Res ult MARINO OLEARY [address] [facility] [place] [address] * US Vein Duplex Lower Extremity Bilateral Complete (10/06/2024 3:34 PM CDT) Anatomical Region Laterality Modality Vascular Bilateral Ultrasound 10/06/2024 2:46 PM CDT Narrative 10/08/2024 12:45 PM CDT Lower Extremity Venous Report Patient Name: CELINA PAK W : 1955 (69y 4m) Gender: M Study Date: 10/06/2024 02:46:53 PM Shop Mechanic: Tim Jordan Location: [id number] Order Provider: DANNY BRISENO Quality: Adequate Ref [...] veins. Provider Notification: Prelim results entered into [facility] study notes. CONCLUSIONS: 1. There is no [...] Gender: M Study Date: 10/06/2024 02:46:53 PM Shop Mechanic: Tim Jordan Location: [id number] Order Provider: DANNY BRISENO Quality: Adequate Ref [...] MD 10/08/2024 12:12:35 PM CDT us Danny Norah HENRY IMG US PROCEDURES Final Result * (ABNORMAL) POC Blood Gas and Chemistries, Arterial - (10/06/2024 11:38 AM CDT) [facility] pH, art POC 7.50(H) 7.35 - 7.45 Comment:Testing performed by : [address] [address] pCO2, art POC 43 35 - 45 mmHg [facility] Comment:Testing performed by : [address] [address] pO2, art POC 98 83 - 108 mmHg [facility] Comment:Testing performed by : [address] [address] HCO3, art (Calc) POC 34(H) 20 - 30 mmol/L [facility] Comment:Testing performed by : [address] [address] Base excess, art POC 9 mmol/L [facility] Comment: Interpretive Data No reference range established. Current interpretive data was last revised 2019. Testing performed by: [address] [address] Blood 10/06/2024 11:3 8 AM CDT 10/06/2024 11:38 AM CDT Medardo Kendall MD LAB POCT ORDERABLES - DEVICE Final Result Performing Organization Address [facility] de Phone Number MARINO [facility] [place] [address] * HIV 1/2 Antibody plus p24 Antigen Blood (10/06/2024 10:56 AM CDT) Pathologist [facility] HIV 1/2 ab + p24 ag Nonreactive [...] GENERAL ORDERABLES Final Result Performing Organization Address [facility] de Phone Number MARINO [facility] [place] [address] * Hepatitis panel, acute Blood (10/06/2024 10:56 AM CDT) [facility] Hep A IgM Nonreactive Nonreactive Comment: Interpretive Data: If Hep A IgM Ab is reported as Equivocal, a new sample should be drawn in two weeks for testing. Current interpretive data was last revised on 19. Hep B core IgM Nonreactive Nonreactive MARINO Comment: Interpretive Data If HepB Core IgM [...] 6 AM CDT 10/06/2024 12:24 PM CDT us Medardo Kendall MD LAB MICROBIOLOGY - GENERAL ORDERABLES Final Result Performing Organization Address [facility] Co de Phone Number MARINO [address] [place] [address] [address] [place] [address] * (ABNORMAL) Troponin T high-sensitivity 6-hour (10/06/2024 9:23 AM CDT) Trop T hs 34(H) <=22 ng/L Comment: Interpretive Data For further hscTnT resources including the diagnostic algorithm and an aid in interpretation, copy and paste this link: https://nrl.testcatalog.org/show/hsTrop Current Interpretive Data last revised 2020. Testing performed by: [address] [address] Trop T hs delta -3 ng/L MARINO Comment:Testing performed by : [address] [address] Trop T hs interp Insignificant MARINO Comment:Testing performed by : [address] [address] Blood 10/06/2024 9:23 AM CDT 10/06/2024 9:42 AM CDT us Michael Escudero Jr., MD LAB BLOOD ORDERABLES Fi nal Result Performing Organization Address [facility] Co de Phone Number MARINO [address] [facility] [place] [place] [address] * (ABNORMAL) Troponin T high-sensitivity 4-hour (10/06/2024 6:40 AM CDT) Trop T hs 31(H) <=22 ng/L Comment: Interpretive Data For further hscTnT resources including the diagnostic algorithm and an aid in interpretation, copy and paste this link: https://nrl.Krillion.org/show/hsTrop Current Interpretive Data last revised 2020. Testing performed by: [facility], [address] [place] [address]., [address] Trop T hs delta -6 ng/L [facility] Comment:Testing performed by : [facility], [address] [place] [address]., [address] Trop T hs interp Equivocal MARINO Comment:Testing performed by : [address] [address] Blood 10/06/2024 6:40 AM CDT 10/06/2024 7:09 AM CDT Michael Escudero Jr., MD LAB BLOOD ORDERABLES Fi nal Result MARINO [address] [facility] Department [place] [address] * (ABNORMAL) Troponin T high-sensitivity 2-hour (10/06/2024 4:50 AM CDT) Pathologist [facility] Trop T hs 31(H) <=22 ng/L Comment: Interpretive Data For further hscTnT resources including the diagnostic algorithm and an aid in interpretation, copy and paste this link: https://nrl.Krillion.org/show/hsTrop Current Interpretive Data last revised 2020. Testing performed by: [address] [address] Trop T hs delta -6 ng/L [facility] Comment:Testing performed by : [address] [address] Trop T hs interp Equivocal MARINO Comment:Testing performed by : [address] [address] Blood 10/06/2024 4:50 AM CDT 10/06/2024 4:57 AM CDT us Michael Escudero Jr., MD LAB BLOOD ORDERABLES Fi nal Result Performing Organization Address [facility] Co de Phone Number MARINO OLE[facility] [address] [facility] [place] [address] * Blood culture Blood (10/06/2024 4:50 AM CDT) Report Final Report: No growth Comment:Testing performed by : [facility], [address], [place]., [address] Blood 10/06/2024 4:50 AM CDT 10/06/2024 8:22 [...] performance characteristics have been verified by the [facility] Microbiology Laboratory. For questions about this culture, contact the Microbiology Laboratory at [phone]. Interpretive data was last revised on 24. us Michael Escudero Jr., MD LAB MICROBIOLOGY - GENE RAL ORDERABLES Final Result Performing Organization Address [facility]/ZIP Co de Phone Number MRAINO OLEARY [address] [facility] Department [place] [address] * Blood culture Blood (10/06/2024 4:21 AM CDT) Pathologist [facility] Report Final Report: No growth Comment:Testing performed by : [facility], [address] [place] [address] Blood 10/06/2024 4:21 AM CDT 10/06/2024 8:22 [...] performance characteristics have been verified by the [facility] Microbiology Laboratory. For questions about this culture, contact the Microbiology Laboratory at [phone]. Interpretive data was last revised on 24. us Michael Escudero Jr., MD LAB MICROBIOLOGY - GENE [facility] ORDERABLES Final Result MARINO [address] [facility] Department [place] [address] * (ABNORMAL) Drugs of Abuse Screen, Urine [...] was last reviewed 2022. Testing performed by: [address] [address] Barbiturates, ur Not Detected CutOff 200ng/mL [facility] Comment: Interpretive Data - Barbiturates: Samples containing greater than 200 ng/mL secobarbital or other cross-reacting barbiturate compounds are reported as positive. False positive and false negative results are possible. Confirmatory testing required for definitive results. Current Interpretive Data was last reviewed 2022. Testing performed by: [address] [address] Benzodiazepines, ur Screen Positive, presumptive (A) CutOff 100ng/mL [facility] Comment: Interpretive Data - Benzodiazepines: Samples containing greater than 100 ng/mL nordiazepam or other cross-reacting compounds are reported as positive. False positive and false negative results are possible. Confirmatory testing required for definitive results. Current Interpretive Data was last reviewed 2022. Testing performed by: [address] [address] Cannabinoids, ur Not Detected CutOff 50 ng/mL [facility] Comment: Interpretive Data - Cannabinoids: Samples containing greater than 50 ng/mL delta-9 THC -COOH or other cross- reacting compounds are reported as positive. False positive and false negative results are possible. Confirmatory testing required for definitive results. Current Interpretive Data was last reviewed 2022. Testing performed by: [address] [address] Cocaine, ur Not Detected CutOff 150ng/mL [facility] Comment: Interpretive Data - Cocaine: Samples containing greater than 150 ng/mL benzoylecgonine or other cross- reacting compounds are reported as positive. False positive and false negative results are possible. Confirmatory testing required for definitive results. Current Interpretive Data was last reviewed 2022. Testing performed by: [address] [address] Fentanyl, Ur Not Detected CutOff 5 ng/mL [facility] Comment: Interpretive Data - Fentanyl: Samples containing greater than 1 ng/mL fentanyl or other cross-reacting fentanyl compounds are reported as positive. False positive and false negative results are possible. Confirmatory testing required for definitive results. Current Interpretive Data was last reviewed 2022. Testing performed by: [address] [address] Methadone, ur Not Detected CutOff 300ng/mL [facility] Comment: Interpretive Data - Methadone: Samples containing greater than 300 ng/mL d,l-methadone or other cross-reacting compounds are reported as positive. False positive and false negative results are possible. Confirmatory testing required for definitive results. Current Interpretive Data was last reviewed 2022. Testing performed by: [address], [place]., [address] Opiates, ur Not Detected CutOff 300ng/mL [facility] Comment: Interpretive Data - Opiates: Samples containing greater than 300 ng/mL morphine or other cross-reacting compounds are reported as positive. False positive and false negative results are possible. Confirmatory testing required for definitive results. Current Interpretive Data was last reviewed 2022. Testing performed by: [address] [address] Oxycodone, ur Not Detected CutOff 100ng/mL [facility] Comment: Interpretive Data - Oxycodone: Samples containing greater than 100 ng/mL oxycodone or other cross-reacting compounds are reported as positive. False positive and false negative results are possible. Confirmatory testing required for definitive results. Current Interpretive Data was last reviewed 2022. Testing performed by: [address] [address] Phencyclidine, ur Not Detected CutOff 25 ng/mL [facility] Comment: Interpretive Data - Phencyclidine: Samples containing greater than 25 ng/mL phencyclidine or other cross-reacting compounds are reported as positive. False positive and false negative results are possible. Confirmatory testing required for definitive results. Current Interpretive Data was last reviewed 2022. Testing performed by: [address] [address] Urine Creatinine 182 mg/dL MARINO Comment: Interpretive Data Urine Creatinine: < 10 mg/dL is extremely dilute = or > 10 but < 20 mg/dL is dilute = or > 20 mg/dL is normal Current Interpretive Data was last revised on 2017. Testing performed by: [facility], [address] [place] [address], [place]., [address] Urine 10/06/2024 3:58 AM CDT 10/06/2024 4:02 AM CDT Narrative MARINO - 10/06/2024 4:28 AM CDT Drug of Abuse screening is performed by immunoassay for medical purposes only. This is not to be used for Pain Management purposes. us Michael Escudero Jr., MD LAB URINE ORDERABLES Fi nal Result MARINO [address] [facility] [place] [address] * XR Chest 1 Vw [...] Electronically signed by Molly Young M.D. SN: Report ID: [id number] [place] Location: [id number] Procedure Note Molly Young MD - 10/06/2024 [...] Electronically signed by Molly Young M.D. SN: Report ID: [id number] [place] Location: [id number] us Michael Escudero Jr., MD IMG XR PROCEDURES Final Result * ECG 12 lead (10/06/2024 2:42 AM CDT) Ventricular Rate EKG/Min 101 BPM [facility] Atrial Rate 101 BPM [facility] MA-Interval (MSEC) 174 ms [facility] QRS-Interval (MSEC) 118 ms [facility] QT-Interval (MSEC) 388 ms [facility] QTc 503 ms [facility] P [place] 58 degrees [facility] R [place] -19 degrees [facility] T [place] 141 degrees [facility] Diagnosis Sinus tachycardia Possible Left atrial enlargement Left ventricular hypertrophy with QRS widening and repolarization abnormality Abnormal ECG When compared with ECG of 04-NOV-2023 08:09, Vent. rate has increased BY 43 BPM Confirmed by CAITLIN BOATENG M.D. ([id number]) on 10/07/2024 3:20:55 PM [facility] 10/06/2024 2:42 AM CDT 10/07/2024 3:20 PM CDT us Michael Escudero Jr., MD ECG ORDERABLES Final R esult Performing Organization Address [facility] de Phone Number [facility] * (ABNORMAL) Troponin T high-sensitivity series (baseline, 2hr, 4hr, 6hr) (10/06/2024 2:40 AM CDT) Trop T hs 37(H) <=22 ng/L Comment: Interpretive Data For further hscTnT resources including the diagnostic algorithm and an aid in interpretation, copy and paste this link: https://nrl.testcatalog.org/show/hsTrop Current Interpretive Data last revised 2020. Testing performed by: [facility], [address] [place] [address]., [address] Blood 10/06/2024 2:40 AM CDT 10/06/2024 2:43 AM CDT us Michael Escudero Jr., MD LAB BLOOD ORDERABLES Fi nal Result Performing Organization Address [facility] Co de Phone Number [place] [id number] [facility] Department of Laboratories [place], [place] [id number] * (ABNORMAL) eGFR (10/06/2024 2:40 AM CDT) [...] was last reviewed 2021. Testing performed by: [address] [address] Blood 10/06/2024 2:40 AM CDT 10/06/2024 2:43 AM CDT us Michael Escudero Jr., MD LAB BLOOD ORDERABLES Fi nal Result [facility] Department [place] [address] * (ABNORMAL) Differential, auto (10/06/2024 2:40 AM CDT) Neutrophil abs 3.88 1.50 - 6.50 K/cumm Comment:Testing performed by : [address] [address] Imm gran abs 0.01 0.00 - 0.10 K/cumm MARINO Comment:Testing performed by : [address] [address] Lymphocyte abs 1.99 0.80 - 3.30 K/cumm MARINO Comment:Testing performed by : [address] [address] Monocyte abs 0.61 0.20 - 0.80 K/cumm MARINO Comment:Testing performed by : [address] [address] Eosinophil abs 0.54(H) 0.00 - 0.50 K/cumm MARINO Comment:Testing performed by : [address] [address] Basophil abs 0.06 0.00 - 0.10 K/cumm MARINO Comment:Testing performed by : [address] [address] Neutrophil pct 54.8 % MARINO Comment: Interpretive Data Percent cell count reference ranges are not reported, since discordance with absolute values may lead to misinterpretation of CBC data. Current Interpretive Data was last revised on 2017. Testing performed by: [address] [address] Imm gran pct 0.1 % MARINO Comment: Interpretive Data Percent cell count reference ranges are not reported, since discordance with absolute values may lead to misinterpretation of CBC data. Current Interpretive Data was last revised on 2017. Testing performed by: [address] [address] Lymphocyte pct 28.1 % [facility] Comment: Interpretive Data Percent cell count reference ranges are not reported, since discordance with absolute values may lead to misinterpretation of CBC data. Current Interpretive Data was last revised on 2017. Testing performed by: [address] [address] Monocyte pct 8.6 % [facility] Comment: Interpretive Data Percent cell count reference ranges are not reported, since discordance with absolute values may lead to misinterpretation of CBC data. Current Interpretive Data was last revised on 2017. Testing performed by: [address] [address] Eosinophil pct 7.6 % [facility] Comment: Interpretive Data Percent cell count reference ranges are not reported, since discordance with absolute values may lead to misinterpretation of CBC data. Current Interpretive Data was last revised on 2017. Testing performed by: [address] [address] Basophil pct 0.8 % [facility] Comment: Interpretive Data Percent cell count reference ranges are not reported, since discordance with absolute values may lead to misinterpretation of CBC data. Current Interpretive Data was last revised on 2017. Testing performed by: [address] [address] Blood 10/06/2024 2:40 AM CDT 10/06/2024 2:43 AM CDT us Michael Escudero Jr., MD LAB BLOOD ORDERABLES Fi nal Result MARINO MH [address] [facility] [place] [address] * (ABNORMAL) Pro B-type natriuretic peptide (10/06/2024 [...] et.al. Eur Heart J. 2006:27:330-337. 2. Teetee DUARTE, Magalie FAGAN. J. AM Alejandro Cardiol: Cardiovasc Imag. 2009;2: 216- 225. Interpretive Data Last Revised Date: 2017. Testing performed by: [facility], [address] [place] [address]., [address] Blood 10/06/2024 2:40 AM CDT 10/06/2024 2:43 AM CDT us Michael Escudero Jr., MD LAB BLOOD ORDERABLES Fi nal Result MARINO [address] [facility] Department [place] [address] * (ABNORMAL) CBC with auto differential (10/06/2024 2:40 AM CDT) Pathologist [facility] WBC 7.09 3.80 - 9.90 K/cumm Comment:Testing performed by : [address] [address] Hgb 12.8(L) 13.0 - 17.5 g/dL MARINO Comment:Testing performed by : [address] [address] Hct 40.4 38.9 - 50.3 % MARINO Comment:Testing performed by : [address] [address] Plt 175 150 - 400 K/cumm MARINO Comment:Testing performed by : [address] [address] MPV 9.4 9.1 - 12.3 fL MARINO Comment:Testing performed by : [address] [address] RBC 4.13(L) 4.30 - 5.80 M/cumm MARINO Comment:Testing performed by : [address] [address] MCV 97.8(H) 81.3 - 96.4 fL MARINO Comment:Testing performed by : [address] [address] MCH 31.0 27.1 - 33.3 pg [facility] OLE[facility] Comment:Testing performed by : [address] [address] MCHC 31.7(L) 32.3 - 35.7 g/dL MARINO Comment:Testing performed by : [address] [address] RDW CV 15.4(H) 11.1 - 14.9 % MARINO Comment:Testing performed by : [address] [address] RDW SD 55.1(H) 35.7 - 48.1 fL [facility] Comment:Testing performed by : [address] [address] NRBC abs 0.00 0.00 - 0.01 K/cumm MARINO Comment:Testing performed by : [address] [address] Blood 10/06/2024 2:40 AM CDT 10/06/2024 2:43 AM CDT us Michael Escudero Jr., MD LAB BLOOD ORDERABLES Fi nal Result MARINO [facility] Department [place] [address] * (ABNORMAL) Comprehensive metabolic panel (10/06/2024 2:40 AM CDT) Sodium 142 135 - 145 mmol/L Comment:Testing performed by : [address] [address] Potassium, pl 3.9 3.3 - 4.9 mmol/L MARINO Comment:Testing performed by : [address] [address] Chloride 104 97 - 110 mmol/L MARINO Comment:Testing performed by : [address] [address] CO2 30 22 - 32 mmol/L MARINO Comment:Testing performed by : [address] [address] Anion gap 8 2 - 15 mmol/L MARINO Comment:Testing performed by : [address] [address] BUN 19 6 - 25 mg/dL MARINO Comment:Testing performed by : [address] [address] Creatinine 1.43(H) 0.80 - 1.30 mg/dL MARINO Comment:Testing performed by : [address] [address] Glucose 90 70 - 199 mg/dL MARINO [...] was last revised 2022. Testing performed by: [address] [address] Calcium 9.4 8.5 - 10.3 mg/dL MARINO Comment:Testing performed by : [address] [address] Bilirubin, total 0.8 0.1 - 1.2 mg/dL MARINO Comment:Testing performed by : [address] [address] Protein, pl 7.2 6.5 - 8.5 g/dL MARINO Comment:Testing performed by : [address] [address] Albumin 3.8 3.5 - 5.0 g/dL [facility] Comment:Testing performed by : [address] [address] Alk phos 93 40 - 130 Units/L MARINO Comment:Testing performed by : [address] [address] ALT 30 7 - 55 Units/L MARINO Comment:Testing performed by : [address] [address] AST 40 10 - 50 Units/L MARINO Comment:Testing performed by : [address] [address] Blood 10/06/2024 2:40 AM CDT 10/06/2024 2:43 AM CDT us Michael Escudero Jr., MD LAB BLOOD ORDERABLES Fi nal Result Performing Organization Address [facility] Co de Phone Number MARINO [facility] [place] [address] * PSA screen (12/12/2023 10:00 AM CDT) [...] revised 21. Testing performed by: [facility], [address] [place] [address]., [address] Blood 12/12/2023 10:0 0 AM CDT 12/12/2023 12:16 PM CDT us Lisa JACINTO LAB BLOOD ORDERABLES Fin al Result Performing Organization Address [facility] de Phone Number MARINO [address] [address] from Last 3 Months or Most Recently Relevant to Health Maintenance [facility] IDPA MEDICARE IDPA Advance Directives For more information, please contact: [phone] * Full Code (Latest Code Status on File) Date Activated Date Inactivated Comments 12/21/2024 6:19 AM 12/23/2024 6:33 PM * Full Code Date Activated Date Inactivated Comments 12/11/2024 1:23 AM 12/15/2024 6:55 PM * Full Code Date Activated Date Inactivated Comments 11/27/2024 8:05 AM 11/30/2024 7:14 PM * Full Code Date Activated Date Inactivated Comments 10/06/2024 5:48 AM 10/11/2024 4:56 PM * Full Code Date Activated Date Inactivated Comments 08/11/2024 5:02 PM 08/14/2024 12:27 AM Care Teams Scrapper Relationship Specialty Start Date End Date Lashae Marcano NP [address] [place] [address] PCP - General Family Practice 08/28/24 [place] [address] [address] Consulting Physician Cardiovascular Disease 07/19/23
--- OUTSIDE RECORDS SUMMARY | 2024-12-25 05:09 | XMS_ITS | Patient Health Record ---
Author Organization [facility] Address [address] [place] [address] Care Team Providers Care Environmental Compliance Engineer Name Role Phone Lulu Govind Primary Care Provider [phone] Rashaun Thurman Unavailable [phone] Deepa Zaidi Unavailable [phone] Allergies No Known Allergies Results Component Value Reference Range Notes Hepatitis B Surface Antigen (HBsAg Screen) Reviewed date:10/25/2024 09:23:16 AM Interpretation: Performing Lab:[employer], [employer] [facility], Phone - [phone], Director - [facility] Notes/Report: HBsAg Screen Negative Negative Hepatitis C Virus Antibody w /Rflx to Quantitative Real-time PCR ([id number]) Reviewed date:10/25/2024 09:23:16 AM Interpretation: Performing Lab:[facility], Phone - [phone], [facility] - [facility] Notes/Report: HCV Ab Non Reactive Non Reactive Interpretation: Not infected with HCV unless early or acute infection is suspected (which may be delayed in an immunocompromised individual), or other evidence exists to indicate HCV infection. TSH Rfx on Abnormal to Free T4 Reviewed date:10/25/2024 09:23:16 AM Interpretation: Performing Lab:[facility] Phone - [phone], [facility] Notes/Report: TSH 7.600 0.450-4.500 uIU/mL T4,Free (Direct) [...] Screen *HIV 1, 2 Ab, p24 Ag (161620) Reviewed date:10/25/2024 09:23:16 AM Interpretation: Performing Lab:[facility] [place], [employer] [facility], Phone - [phone], Director - [facility] Notes/Report: HIV Ab/p24 Ag Screen Non Reactive Non Reactive HIV-1/HIV-2 antibodies and HIV-1 p24 antigen were NOT detected. There is no laboratory evidence of HIV infection. HIV Negative CMP 14 Comprehensive Metabol ic Panel* Reviewed date:10/25/2024 09:23:16 AM Interpretation: Performing Lab:[facility] [place], [address] [place], [place] [address]ox [facility], Phone - [phone], Director - [facility] Notes/Report: Glucose 77 70-99 mg/dL BUN 35 [...] et* Reviewed date:10/25/2024 09:23:17 AM Interpretation: Performing Lab:[facility] [place], [address] [facility] Phone - [phone], Director - [facility] Notes/Report: WBC 5.8 3.4-10.8 x10E3/uL RBC 4.48 [...] % Immature Grans (Abs) 0.0 0.0-0.1 x10E3/uL Rapid Plasma Reagin (RPR) Te st With Reflex to Quantitative RPR and Confirmatory Treponema pallidum Antibodies Reviewed date:10/25/2024 09:23:16 AM Interpretation: Performing Lab:[facility] [place], [address] [facility], [place], Phone - [phone], Director - [facility] Notes/Report: RPR Non Reactive Non Reactive Interpretation: [...] with past or current (potential early) syphilis. QuantiFERON-TB Gold Plus (18 2879) Reviewed date:10/25/2024 09:23:16 AM Interpretation: Performing Lab:[facility] [place], [address] [facility] Phone - [phone], Director - Ji Notes/Report: QuantiFERON Incubation Incubation performed. QuantiFERON-TB Gold [...] PM Interpretation: Performing Lab: Notes/Report: [place] 0.000 Reason For Referral Diagnosis 1 Methamphetamine abus e (F15.10) Referral Organization [facility] Referring Provider First Name Rashaun Referring Provider [...] with others, in a hotel, in a [place], living outside on the street, on a beach, or in a park) Are you worried about losing your housing? Yes What is the highest level of school that you have finished? More than high school What is your current work situation? Oth erwise unemployed but not seeking work (ex. 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 No What [...] Status W/U Status Risk Notes Problem Hyperlipidemia (00946421) Hyperlipidemia (E78.5) Active confirmed Problem Gastroesophageal reflux disease (792015972) GERD (gastroesophageal reflux disease) (K21.9) Active confirmed Problem Mood disorder (29652209) Mood disorder (F39) Active confirmed Problem COPD - Chronic obstructive pulmonary disease (13777311) COPD (chronic obstructive pulmonary disease) (J44.9) Active confirmed Problem Overweight (675976943) Over weight (E66.3) Active confirmed Problem Methamphetamine abuse (119533807) Methamphetamine abuse (F15.10) Active confirmed Problem Cardiomyopathy (27600093) Cardiomyopathy (I42.9) Active confirmed Problem Subclinical hypothyroidism (08536084) Subclinical hypothyroidism (E03.9) Active confirmed Problem Chronic kidney disease stage 3A (691475236) Stage 3a chronic kidney disease (N18.31) Active confirmed Vital Signs Heart Rate 52 /min 10/18/2024 Temperature 97.7 degrees Fahrenheit 10/18/2024 Respiratory Rate 20 /min 10/18/2024 Blood pressure diastolic 60 mm Hg 10/18/2024 Oximetry 98 % 10/18/2024 Height 72 in 10/18/2024 Blood pressure systolic 118 mm Hg 10/18/2024 Weight 231.6 lbs 10/18/2024 BMI 31.41 kg/m2 10/18/2024 Encounters Encounter Location Date Provider Diagnosis [facility] [address] [place] [address] 10/13/2024 Rashaun Thurman [facility] [place] [address] 10/11/2024 Rashaun Thurman Cardiomyopathy I42.9 ; Methamphetamine abuse F15.10 ; Exposure to potential infection Z20.9 ; Over weight E66.3 ; COPD (chronic obstructive pulmonary disease) J44.9 ; Hyperlipidemia E78.5 and GERD (gastroesophageal reflux disease) K21.9 [place] [address] [place] [address] 10/11/2024 Deepa Zaidi Methamphetamine abuse F15.10 [address] [place] [address] [address] [facility] [place] [address] 10/18/2024 Rashaun Thurman Cardiomyopathy I42.9 ; Stage 3a chronic kidney disease N18.31 ; Impaired glucose tolerance R73.02 ; COPD (chronic obstructive pulmonary disease) J44.9 ; Methamphetamine abuse F15.10 ; Subclinical hypothyroidism E03.9 ; Mood disorder F39 and Over weight E66.[address] [place] [address] 10/08/2024 Rashaun Thurman [place] [address] [facility] [facility] [place] [address] 10/11/2024 Rashaun Thurmna Assessments Encounter Date Diagnosis (ICD Code) Assessment Notes Treatment Notes Treatment Clinical Notes Section Notes 10/11/2024 Methamphetamine abuse (ICD-10 - F15.10) SUPR Programs: Based on an evaluation of [facility] Patient Placement Criteria, a recommendation for [...] through bandages. 10/11/2024 Cardiomyopathy (ICD-10 - I42.9) 10/11/2024 Methamphetamine abuse (ICD-10 - F15.10) 10/18/2024 Cardiomyopathy (ICD-10 - I42.9) Increase losartan [...] Methamphetamine abuse (ICD-10 - F15.10) Continue in [facility] 10/11/2024 COPD (chronic obstructive pulmonary disease) (ICD-10 - J44.9) 10/11/2024 Hyperlipidemia (ICD-10 - E78.5) 10/18/2024 Subclinical hypothyroidism (ICD-10 - E03.9) 10/11/2024 GERD (gastroesophageal reflux disease) (ICD-10 - K21.9) 10/18/2024 Mood disorder (ICD-10 - F39) F/u with psych 10/18/2024 Over weight (ICD-10 - E66.3) 10/11/2024 Other [place]/O ISSUES 10/11/2024 Other Clinician met w ith client to assess needs for residential services. Clinician gathered information regarding historical presentation of mental health and substance use symptoms including withdrawal, HIV Risk assessment, psychiatric hospitalization history and presenting concern. Clinician conducted PHQ9 and CSSRS assessments as well as social drivers of health screening for the purposes of identifying additional service needs. Plan Of Treatment No Information Insurance Providers Payer Name Payer Address Payer Phone Subscriber Number Group Number Insured Name Patient Relationship to Insured Coverage Start Date Coverage End Date MEDICARE PART A [address] [place] [phone] [id number] Jeevan Castellanos Self - patient is the insured 3 [place] [address] [place] [phone] [id number] Jeevan Castellanos Self - patient is the insured 3 Medical (General) History Medical History History ICD Code CHF COPD Surgical History Surgery Date(Month/Year) [facility] 2023 Hospitalization History Reason Date(Month/Year) [facility] 09/2024
[2024-12-25 05:45] VITALS: BP 132/96; PULSE 60; RESP 13; O2SAT 94
== END 2024-12-25 05:35 | disposition home or self-care (01) ==
PROVIDERS: Emergency Provider Emergency Medicine; PCP Nurse Practitioner Family
DX: S00.81XA Abrasion of other part of head, initial encounter (principal); I50.9 Heart failure, unspecified; J44.9 Chronic obstructive pulmonary disease, unspecified; Z86.73 Personal history of transient ischemic attack (TIA), and cerebral infarction without residual deficits; W07.XXXA Fall from chair, initial encounter
CPT/HCPCS: 70450; 72125; 99284